=== PATIENT | female | born 1955 | race Caucasian/White ===

== ENCOUNTER → 2022-06-12 | Outpatient (CLI) | payer MEDICARE ==
--- NOTE | 2022-06-13 15:50 | USB ---
Reason for Exam: Clinical finding. Risk Values: Lauren 5 year model risk: 1.1%. NCI Lifetime model risk: 4.0%. Technique: Method: Whole Breast Handheld. Patient Position: Supine. Findings: The whole breast of the left breast, the axilla of the left breast and the retroareolar of the left breast were scanned. Whole left breast ultrasound was performed including scanning of the subareolar region and axilla.. Dense tissues are present throughout. Large elongated irregular mass at the patient's 1:00 palpable site, 8 cm from the nipple measuring up to 4.1 x 2.3 x 1.3 cm. There is an abnormally thickened and rounded lymph node with cortex measuring up to 9 mm. At the 4:00 position, 4 cm from the nipple, there is an irregular hypoechoic lesion measuring 1.0 x 0.7 x 0.4 cm. Along the subareolar plane, posteriorly, there is an irregular elongated hypoechoic mass with angular margins measuring 1.8 x 0.9 x 0.6 cm. At the 11:00 position, 4 cm from the nipple, there is a 9 x 7 x 6 mm irregular hypoechoic lesion. Overall Assessment: Highly suggestive of malignancy, BI-RAD 5 Management: Ultrasound Core Biopsy of the left breast. There are 5 abnormal lesions in the left breast, one of which represents the 4.1 cm palpable 1:00 mass and the second of which represents a suspicious, abnormally thickened axillary lymph node. The other 3 lesions are behind the nipple line, at 4:00, and 11:00. Multicentric disease is suggested. We are recommending 3 site sampling, including the 1:00 dominant mass, farthest 4:00 lesion, and the axillary node. If any of these return negative or if it would be important for treatment planning purposes, sampling of the posterior nipple line mass and 11:00 mass can also be considered at a later time. Electronically signed and approved by: Flavio Ring M.D. Radiologist
--- NOTE | 2022-06-13 15:50 | MM ---
Reason for Exam: Clinical finding. Risk Values: Lauren 5 year model risk: 1.1%. NCI Lifetime model risk: 4.0%. Tissue Density: The breast tissue is heterogeneously dense. This may lower the sensitivity of mammography. Findings: Analyzed By CAD. The palpable marker placed along the upper-outer quadrant of the left breast. Underlying large irregular bilobed mass measuring up to 3.8 cm involving large portion of the upper outer quadrant. No discrete persisting abnormality identified in the right breast. Benign oil cyst calcification centrally in the right breast. Further ultrasound evaluation recommended. Overall Assessment: Incomplete: need additional imaging evaluation, BI-RAD 0 Management: Diagnostic Breast Ultrasound of the left breast. Electronically signed and approved by: Flavio Ring M.D. Radiologist
== END | disposition home or self-care (01) ==
LOC: RADMAMWWP 10:42
PROVIDERS: ATTEND Family Medicine
DX: N63.21 Unspecified lump in the left breast, upper outer quadrant (principal)
CPT/HCPCS: 77066; 76641; G0279; 77062

== ENCOUNTER → 2022-06-26 | Day surgery (SDC) | payer MEDICARE ==
--- NOTE | 2022-07-02 09:52 | USB ---
Risk Values: Lauren 5 year model risk: 1.1%. NCI Lifetime model risk: 4.0%. Pathology Description: Location: 1 o'clock. Marker Left Behind. Needle Type: Mammotome Cores: 4 Skin Nicks: 1 Gauge: 13 The procedure of ultrasound guided core biopsy of 2 left breast masses and abnormal left axillary lymph node was explained to the patient. Benefits, alternatives, and risks were discussed. An informed consent was then obtained. The patient was placed in supine positioning for imaging and for the procedure. The overlying skin was prepped and draped in usual sterile fashion. Lidocaine buffered with bicarbonate was used as anesthetic into the skin and subcutaneous tissue up to area of concern in the left lateral breast at 1:00. A chaitanya was made with surgical scalpel. Under ultrasound guidance, a 12-gauge vacuum assisted biopsy gun device was used to obtain 4 core samples. Following this, a ribbon biopsy clip was left in lesion. Attention was then turned to the area concern in the left lateral breast at 4:00. Lidocaine buffered with bicarbonate was used as anesthetic into the skin and subcutaneous tissue up to the area of concern. Under ultrasound guidance, a 12-gauge vacuum assisted biopsy gun device was used to obtain 4 core samples. Following this, a coil biopsy clip was left in lesion. Attention was turned to the abnormal left axillary lymph node. Lidocaine buffered with bicarbonate was used as anesthetic into the skin and subcutaneous tissues up to the area of concern. Under ultrasound guidance, a 12-gauge biopsy gun device was used to obtain 4 core samples. Following this, a butterfly biopsy clip was left in lesion. The patient tolerated the procedure well without any immediate complication. The patient was kept in the radiology department for short stay after the procedure and then discharged home in stable condition. Postprocedure mammogram: The patient was transferred to mammography for physician ordered post procedure mammogram for clip placement verification. There is verification of 2 biopsy clips within the left breast corresponding to abnormal lesions on ultrasound. The left axilla is not imaged. Impression: Successful, uncomplicated ultrasound guided core biopsy of 2 areas of concern in the left breast and abnormal left axillary lymph node, full pathology results to follow. Pathology Results: Result: Malignant, Invasive ductal carcinoma. A. LEFT BREAST, 1:00 POSITION, CORE BIOPSY: Invasive ductal carcinoma, Grade 2 (see Surgical Pathology Cancer Case Summary and comment). B. LEFT BREAST, 4:00 POSITION, CORE BIOPSY: Invasive ductal carcinoma, Grade 2 (see Surgical Pathology Cancer Case Summary and comment). C. DESIGNATED "LEFT AXILLARY TAIL", CORE BIOPSY: Lymphoid tissue positive for metastatic Grade 2 ductal carcinoma (see Surgical Pathology Cancer Case Summary and comment). Pathology Description: Location: axillary tail. Marker Left Behind. Needle Type: VaD Cores: 4 Skin Nicks: 2 Gauge: 18 Pathology Description: Location: 4 o'clock. Marker Left Behind. Cores: 4 Skin Nicks: 1 Gauge: 13 Tissue Density: Left: The breast tissue is heterogeneously dense. This may lower the sensitivity of mammography. Overall Assessment: Malignant Assessment: MG diagnostic mammo LT wo CAD. - Left: Known biopsy proven malignancy, BI-RAD 6. Management: Surgical Consultation of the left breast. Electronically signed and approved by: Santo Salguero D.O.
== END ==
LOC: RADUSWWP 10:03
PROVIDERS: ATTEND Surgery
DX: C50.912 Malignant neoplasm of unspecified site of left female breast (principal); Z17.1 Estrogen receptor negative status [ER-]
CPT/HCPCS: 88305; 88342; 88341; 77065; 19083; 19084; A4648

== ENCOUNTER → 2022-07-18 | Outpatient (CLI) | payer MEDICARE, OTHER ==
--- NOTE | 2022-07-22 10:45 | PE ---
EXAMINATION TYPE: PET CT fusion skull to thigh DATE OF EXAM: 07/18/2022 CLINICAL INDICATION:Female, 66 years old with history of C50.612 MALIGNANT NEOPLASM OF AXILLARY TAIL OF LEF; TECHNIQUE: Following the intravenous administration of 11.09 mCi of F-18 FDG, whole body images are performed from the skull base to the midthigh. Images are reviewed on the computer in the coronal, axial, and sagittal planes. Reconstructed rotating images are created on independent workstation and reviewed on the computer. A non-contrast CT is performed in conjunction with the PET scan. Glucose level 86 mg/dL COMPARISON: CT None, PET/CT None, diagnostic mammogram March 26, 2022, BIOPSY 06/26/2022. FINDINGS: Mediastinal SUV mean is 1.4. Hepatic parenchyma SUV mean is 1.8. SKULL BASE AND NECK: No suspicious FDG activity. CHEST, MEDIASTINUM, AND HILAR REGION: * Abnormal FDG activity seen within the left breast posterior depth max SUV 8.4 with a more linear a ppearance just anterior to the pectoralis major muscles measuring 4.6 x 1.0 cm. * A more focal area of FDG uptake in a mass in the lateral left breast with max SUV 10.0 measuring 1.5 x 1.6 cm. * Left axillary lymph nodes with increased radiotracer uptake max SUV 3.3, the largest measuring 9 m m in short axis. * Subtle Left retropectoral lymph node with asymmetric uptake with max SUV 1.4 measuring 4 mm in abhishek rt axis, which is suspicious. ABDOMEN AND PELVIS: Focal radio tracer uptake within the sigmoid colon max SUV 5.4. No additional milagros picious FDG activity within the abdomen or pelvis. OSSEOUS STRUCTURES: No suspicious FDG activity. OTHER CT: Bilateral aphakia. Mild atherosclerosis of the arterial vasculature. The appendix is normal . Colonic diverticulosis is. IMPRESSION: 1. Left breast masses consistent with malignancy as seen on prior ultrasound and biopsy. There is as sociated metastatic disease to the left axilla lymph nodes and suspicious left retropectoral lymph no de present. 2. Focal FDG activity which is indeterminate involving the sigmoid colon. Could represent an inflame d diverticulum versus underlying polyp. Attention on follow-up imaging. Consider colonoscopy if not r ecently completed.
== END | disposition home or self-care (01) ==
LOC: RADPETMAIN 15:30
PROVIDERS: ATTEND Internal Medicine Hematology & Oncology
DX: C50.612 Malignant neoplasm of axillary tail of left female breast (principal); C77.3 Secondary and unspecified malignant neoplasm of axilla and upper limb lymph nodes
CPT/HCPCS: 78815; A9552

== ENCOUNTER 2022-07-25 06:59 | Day surgery (SDC) | payer MEDICARE, OTHER ==
[2022-07-24 14:07] VITALS: BMI 18.3
[~2022-07-25 06:59] MED LIST: ACETAMINOPHEN TAB 500 MG TAB PO PRN; HEPARIN SODIUM,PORCINE/PF 5,000 UNIT/0.5 ML SYRINGE SQ PRN; Pre Op ABX Message 1 EACH MISC MISCELLANE ONE
[2022-07-25] MEDS ORDERED: LACTATED RINGERS 1,000 ML IV ONE (07:22)
[2022-07-25] MEDS ORDERED: ONDANSETRON 4 MG/2 ML VIAL IVP ONE (07:37)
[2022-07-25] MEDS ORDERED: DEXAMETHASONE SOD PHOSPHATE 4 MG/ML 1 ML VIAL IVP ONE (07:37)
--- NOTE | 2022-07-25 08:22 | P.GSHP ---
History of Present Illness H&P Date: 07/25/22 Chief Complaint: Left breast cancer 66 row female known to our service. Recently diagnosed with locally advanced left breast cancer. Here today for Port-A-Cath placement. She has not had a port previously. She believes she is beginning therapy in a week or so. Past Medical History Past Medical History: Cancer, COPD, Eye Disorder Additional Past Medical History / Comment(s): MENINGITIS (19 YRS OLD)., NO MEDS FOR COPD. , FLOATER RIGHT EYE., LEFT BREAST CANCER History of Any Multi-Drug Resistant Organisms: None Reported Past Surgical History: Hysterectomy, Tonsillectomy Additional Past Surgical History / Comment(s): RUPTURED GRAAFIAN FOLLICLE, HARITHA CATARACTS. Past Anesthesia/Blood Transfusion Reactions: No Reported Reaction Additional Past Anesthesia/Blood Transfusion Reaction / Comment(s): HX OF BLOOD TRANSFUSION-NO REACTION Past Psychological History: Anxiety Smoking Status: Former smoker Past Alcohol Use History: Occasional Additional Past Alcohol Use History / Comment(s): QUIT SMOKING 5 DAYS AGO., SMOKED LESS THAN 1PPD, SMOKED FOR 40 YEARS. Past Drug Use History: None Reported Additional Drug Use History / Comment(s): CBD COFFEE- INSTRUCTED NOT TO USE 24 HRS PRIOR TO SURGERY. - Past Family History Father Family Medical History: Cancer Additional Family Medical History / Comment(s): PANCREATIC CANCER Brother(s) Family Medical History: Cancer, Thyroid Disorder Additional Family Medical History / Comment(s): STOMACH CANCER Medications and Allergies Home Medications Medication Instructions Recorded Confirmed Type Acetaminophen Tab [Tylenol] 650 mg PO Q6H PRN 07/24/22 07/24/22 History LORazepam [Ativan] 1 mg PO QAM 07/24/22 07/24/22 History LORazepam [Ativan] 2 mg PO HS 07/24/22 07/24/22 History Nicotine 7Mg/24Hr Patch [Habitrol] 1 patch TRANSDERM HS 07/24/22 07/24/22 History Vicks Zzzquil 1 dose PO HS PRN 07/24/22 History Allergies Allergy/AdvReac Type Severity Reaction Status Date / Time No Known Allergies Allergy Verified 07/24/22 13:38 Surgical - Exam Vital Signs Temp Pulse Resp BP Pulse Ox 97.4 F L 81 18 124/77 99 07/25/22 07:21 07/25/22 07:21 07/25/22 07:21 07/25/22 07:21 07/25/22 07:21 Physical exam: General: Well-developed, well-nourished HEENT: Normocephalic, sclerae nonicteric Abdomen: Nontender, nondistended Extremities: No edema Neuro: Alert and oriented Assessment and Plan (1) Breast cancer, left Narrative/Plan: Will proceed with Port-A-Cath placement this time. Risks of bleeding, infection, DVT, pneumothorax, catheter malfunction, anesthesia related complications were discussed. The patient understands and wishes to proceed. Current Visit: Yes Status: Acute Code(s): C50.912 - MALIGNANT NEOPLASM OF UNSPECIFIED SITE OF LEFT FEMALE BREAST SNOMED Code(s): 861607293
[2022-07-25] MEDS ORDERED: PHENYLEPHRINE-0.9% NACL SYG 1,000 MCG/10 ML SYRINGE ONE (08:23)
[2022-07-25] MEDS ORDERED: PROPOFOL 10 MG/ML 20 ML VIAL IV ONE (08:23)
[2022-07-25] MEDS ORDERED: ePHEDrine 50 MG/ML 1 ML VIAL ONE (08:23)
[2022-07-25] MEDS ORDERED: MIDAZOLAM 2 MG/2 ML VIAL ONE (08:23)
[2022-07-25] MEDS ORDERED: fentaNYL (PF) 50 MCG/ML 2 ML AMP ONE (08:23)
[2022-07-25] MEDS ORDERED: LIDOCAINE 2% INJ 20 MG/ML (2 ML VIAL) ONE (08:23)
[2022-07-25] MEDS ORDERED: LIDOCAINE 1% INJ 10MG/ML (20 ML MDV) SQ ONE ×2 (08:45→08:51)
[2022-07-25] MEDS ORDERED: SODIUM CHLORIDE 0.9% 50 ML with ceFAZolin 2,000 MG IV ONE ×2 (08:50)
[2022-07-25] MEDS ORDERED: traMADol 50 MG TAB PO PRN (09:29)
[2022-07-25] MEDS ORDERED: NALOXONE 0.4 MG/ML 1 ML VIAL IV PRN (09:29)
[2022-07-25 09:32] VITALS: TEMP 97
--- NOTE | 2022-07-25 09:38 | FL ---
Fluoroscopy History: Port-A -Cath Insertion Port-A -Cath Insertion. FL TIME: [address] GARCIA. 2 IMAGES TO PACS
--- NOTE | 2022-07-25 09:52 | XR ---
EXAMINATION TYPE: XR chest 1V confirm line [facility] DATE OF EXAM: 07/25/2022 HISTORY: Shortness of breath. COMPARISON: None. TECHNIQUE: Single view of the chest is submitted. FINDINGS: Right-sided Mediport catheter with distal tip overlying the SVC. No evidence for pneumothorax. There is no evidence for focal infiltrate. The heart is stable. Hilar and mediastinal structures are within normal limits. Degenerative changes are seen of the dorsal spine. IMPRESSION: 1. Chronic changes without evidence for acute pulmonary disease.
[2022-07-25 10:26] VITALS: BP 115/72; PULSE 83; RESP 16
--- NOTE | 2022-07-30 19:35 | P.OP ---
Date of Procedure: 07/25/22 Procedure(s) Performed: PREOPERATIVE DIAGNOSIS: breast cancer POSTOPERATIVE DIAGNOSIS: Same PROCEDURE: Port-A-Cath placement SURGEON: Tee EBL: Minimal ANESTHESIA: Sedation COMPLICATIONS: None OPERATIVE PROCEDURE: Patient was brought and placed on the operative table in the supine position. The patient was sedated per anesthesia that time. The chest and neck were prepped and draped in usual sterile fashion. The ultrasound probe was used to identify the location of the right internal jugular vein. The skin was localized with lidocaine. The Seldinger needle was advanced into the IJ under ultrasound guidance. The wire was advanced through the needle under fluoroscopic guidance into the superior vena cava. A port pocket was created in the right infraclavicular location. The catheter was tunneled from the wire entrance site to the port pocket. The port was then connected to the catheter. The dilator introducer was threaded over the guidewire. The guidewire and dilator were then removed. The catheter was advanced through the introducer and introducer was then removed. The tip was seen to be in the right atrial junction. Port was flushed with both saline and a Hep-Lock solution. There was good flow both in and out of the port. The port was sutured in underlying tissues using 3-0 silk sutures. The subcutaneous tissues were reapproximated using 3-0 Vicryl sutures and the skin at both locations using 4-0 Monocryl sutures. Steri-Strips and sterile dressings then applied. DISPOSITION: Stable to recovery room
== END 2022-07-25 10:50 | disposition home or self-care (01) ==
LOC: OR 06:59
PROVIDERS: ATTEND Surgery
DX: C50.919 Malignant neoplasm of unspecified site of unspecified female breast (principal); J44.9 Chronic obstructive pulmonary disease, unspecified; Z87.891 Personal history of nicotine dependence; Z79.899 Other long term (current) drug therapy
CPT/HCPCS: 36561; 77001; C1788; J2250; J1100; J2405; J0690; J2001 ×2; J3010; J1642; J2370; J2704

== ENCOUNTER 2022-08-26 09:47 | Day surgery (SDC) | payer MEDICARE, OTHER ==
[~2022-08-26 09:47] MED LIST changes: -ACETAMINOPHEN TAB 500 MG TAB PO PRN; -HEPARIN SODIUM,PORCINE/PF 5,000 UNIT/0.5 ML SYRINGE SQ PRN; +LACTATED RINGERS 1,000 ML IV SCH; +LIDOCAINE 1% (10MG/ML) FOR IV START INTRADERMA PRN; -Pre Op ABX Message 1 EACH MISC MISCELLANE ONE
[2022-08-26 10:27] VITALS: TEMP 97.6
[2022-08-26] MEDS ORDERED: PROPOFOL 10 MG/ML 20 ML VIAL IV ONE (10:56)
--- NOTE | 2022-08-26 11:00 | P.GSHP ---
History of Present Illness H&P Date: 08/26/22 Chief Complaint: Colon cancer screening 66-year-old female here today for colonoscopy. Patient with recent diagnosis of locally advanced breast cancer. Patient with PET scan showing some questionable activity in the sigmoid colon. No prior colonoscopy. No family history of colon cancer. No bowel complaints. Past Medical History Past Medical History: Cancer, COPD, Eye Disorder Additional Past Medical History / Comment(s): MENINGITIS, 19 YRS OLD ovary burst., NO MEDS FOR COPD. , FLOATER RIGHT EYE., LEFT BREAST CANCER - pt had a recent PET scan that showed at spot that they wanted to check out for mets. History of Any Multi-Drug Resistant Organisms: None Reported Past Surgical History: Hysterectomy, Tonsillectomy Additional Past Surgical History / Comment(s): RUPTURED GRAFIAN FOLLICLE, HARITHA CATARACTS with lens implants Past Anesthesia/Blood Transfusion Reactions: No Reported Reaction Additional Past Anesthesia/Blood Transfusion Reaction / Comment(s): HX OF BLOOD TRANSFUSION-NO REACTION Smoking Status: Light tobacco smoker - Past Family History Father Family Medical History: Cancer Additional Family Medical History / Comment(s): PANCREATIC CANCER Brother(s) Family Medical History: Cancer, Thyroid Disorder Additional Family Medical History / Comment(s): STOMACH CANCER Medications and Allergies Home Medications Medication Instructions Recorded Confirmed Type Acetaminophen Tab [Tylenol] 650 mg PO Q6H PRN 07/24/22 08/26/22 History LORazepam [Ativan] 1 mg PO QAM 07/24/22 08/26/22 History LORazepam [Ativan] 2 mg PO HS 07/24/22 08/26/22 History CARBOplatin [Paraplatin] 50 mg IV WEEKLY 08/26/22 08/26/22 History OLANZapine 5 mg PO DAILY 08/26/22 08/26/22 History PACLitaxeL [Taxol] mg IV WEEKLY 08/26/22 History Pembrolizumab [Keytruda] 100 mg IV WEEKLY 08/26/22 08/26/22 History Allergies Allergy/AdvReac Type Severity Reaction Status Date / Time No Known Allergies Allergy Verified 08/26/22 10:15 Surgical - Exam Vital Signs Temp Pulse Resp BP Pulse Ox 97.6 F 81 16 134/59 98 08/26/22 10:26 08/26/22 10:26 08/26/22 10:26 08/26/22 10:26 08/26/22 10:26 Physical exam: General: Well-developed, well-nourished HEENT: Normocephalic, sclerae nonicteric Abdomen: Nontender, nondistended Extremities: No edema Neuro: Alert and oriented Assessment and Plan (1) Colon cancer screening Narrative/Plan: Will proceed with colonoscopy at this time. Current Visit: Yes Status: Acute Code(s): Z12.11 - ENCOUNTER FOR SCREENING FOR MALIGNANT NEOPLASM OF COLON SNOMED Code(s): 335864044
--- NOTE | 2022-08-26 11:19 | P.PCN ---
Date of Procedure: 08/26/22 Procedure(s) Performed: PREOPERATIVE DIAGNOSIS: Colon cancer screening POSTOPERATIVE DIAGNOSIS: Diverticulosis PROCEDURE: Colonoscopy ANESTHESIA: MAC SURGEON: Robert Oliveira M.D. SPECIMENS: None ENDOSCOPIC PROCEDURE: The patient was placed on the endoscopy table in the left decubitus position. The Olympus colonoscope was inserted into the anus and passed under direct visualization to the base of the cecum. The appendiceal orifice was visualized. From that point the scope was slowly withdrawn inspe cting all surfaces carefully. There were no neoplastic inflammatory or polypoid lesions throughout the cecum, ascending, transverse, descending, sigmoid and rectum. There was extensive diverticulosis noted throughout the colon. Digital rectal examination was normal. The patient was taken to the recovery room in stable condition per anesthesia guidelines. RECOMMENDATIONS: Resume diet. Recent PET scan findings likely on the basis of chronic diverticulitis. Repeat colonoscopy in 5-10 years.
[2022-08-26 11:49] VITALS: BP 107/56; PULSE 78; RESP 20
== END 2022-08-26 11:58 | disposition home or self-care (01) ==
LOC: ORWHC2ENDO 09:47
PROVIDERS: ATTEND Surgery
DX: Z12.11 Encounter for screening for malignant neoplasm of colon (principal); K57.30 Diverticulosis of large intestine without perforation or abscess without bleeding; J44.9 Chronic obstructive pulmonary disease, unspecified; H57.9 Unspecified disorder of eye and adnexa; G03.9 Meningitis, unspecified; Z90.710 Acquired absence of both cervix and uterus; Z90.89 Acquired absence of other organs; Z98.41 Cataract extraction status, right eye; Z98.42 Cataract extraction status, left eye; Z85.3 Personal history of malignant neoplasm of breast; Z72.0 Tobacco use; Z80.0 Family history of malignant neoplasm of digestive organs; Z83.49 Family history of other endocrine, nutritional and metabolic diseases; Z79.899 Other long term (current) drug therapy
CPT/HCPCS: J2704; G0121

== ENCOUNTER 2022-10-16 21:42 | Emergency (ER) | payer MEDICARE, OTHER ==
[2022-10-16] MEDS ORDERED: SODIUM CHLORIDE 0.9% 1,000 ML IV STA ×2 (21:55→22:56)
[2022-10-16] MEDS ORDERED: ONDANSETRON 4 MG/2 ML VIAL IVP STA (21:55)
--- NOTE | 2022-10-16 21:56 | ED ---
Chest Pain HPI - General Chief Complaint: Chest Pain Stated Complaint: Chest Pain Time Seen by Provider: 10/16/22 21:53 Source: patient, EMS, RN notes reviewed, old records reviewed Mode of arrival: EMS Limitations: no limitations - History of Present Illness Initial Comments: This is a 66-year-old female to the emergency department for evaluation. She presents today for evaluation of pain chest pain and back pain. Patient had chest pain that radiated to back radiates to her job positive for nausea and shortness of breath. Patient has not had this pain before. No current, fever. Patient's chest pain is persistent here in the emergency department with no sweating MD Complaint: chest pain -: days(s) Onset: during rest, during exertion Pain Location: substernal, left chest Pain Radiation: none Severity: moderate Severity scale (1-10): 7 Quality: sharp Consistency: intermittent Improves With: nothing Worsens With: nothing Context: other (0) Anginal Symptoms: dyspnea Other Symptoms: palpitations Treatments Prior to Arrival: none - Related Data Home Medications Medication Instructions Recorded Confirmed Acetaminophen Tab [Tylenol] 650 mg PO Q6H PRN 07/24/22 08/26/22 LORazepam [Ativan] 1 mg PO QAM 07/24/22 08/26/22 LORazepam [Ativan] 2 mg PO HS 07/24/22 08/26/22 CARBOplatin [Paraplatin] 50 mg IV WEEKLY 08/26/22 08/26/22 OLANZapine 5 mg PO DAILY 08/26/22 08/26/22 PACLitaxeL [Taxol] mg IV WEEKLY 08/26/22 Pembrolizumab [Keytruda] 100 mg IV WEEKLY 08/26/22 08/26/22 Allergies Allergy/AdvReac Type Severity Reaction Status Date / Time No Known Allergies Allergy Verified 10/16/22 21:55 Review of Systems ROS Statement: Those systems with pertinent positive or pertinent negative responses have been documented in the HPI. ROS Other: All systems not noted in ROS Statement are negative. EKG Findings - EKG Comments: EKG Findings:: EKG interpreted me sinus 94 WI 132 QRS 84 QTC 360 Past Medical History Past Medical History: Cancer, COPD, Eye Disorder Additional Past Medical History / Comment(s): MENINGITIS, 19 YRS OLD ovary burst., NO MEDS FOR COPD. , FLOATER RIGHT EYE., LEFT BREAST CANCER - pt had a recent PET scan that showed at spot that they wanted to check out for mets. History of Any Multi-Drug Resistant Organisms: None Reported Past Surgical History: Hysterectomy, Tonsillectomy Additional Past Surgical History / Comment(s): RUPTURED GRAFIAN FOLLICLE, HARITHA CATARACTS with lens implants Past Anesthesia/Blood Transfusion Reactions: No Reported Reaction Additional Past Anesthesia/Blood Transfusion Reaction / Comment(s): HX OF BLOOD TRANSFUSION-NO REACTION Past Psychological History: Anxiety Smoking Status: Light tobacco smoker Past Alcohol Use History: Occasional Past Drug Use History: None Reported - Past Family History Father Family Medical History: Cancer Additional Family Medical History / Comment(s): PANCREATIC CANCER Brother(s) Family Medical History: Cancer, Thyroid Disorder Additional Family Medical History / Comment(s): STOMACH CANCER General Exam Limitations: no limitations General appearance: alert, in no apparent distress Head exam: Present: atraumatic, normocephalic, normal inspection Eye exam: Present: normal appearance, PERRL, EOMI. Absent: scleral icterus, c onjunctival injection, periorbital swelling ENT exam: Present: normal exam, mucous membranes moist Neck exam: Present: normal inspection. Absent: tenderness, meningismus, lymphadenopathy Respiratory exam: Present: normal lung sounds bilaterally. Absent: respiratory distress, wheezes, rales, rhonchi, stridor Cardiovascular Exam: Present: regular rate, normal rhythm, normal heart sounds. Absent: systolic murmur, diastolic murmur, rubs, gallop, clicks GI/Abdominal exam: Present: soft, normal bowel sounds. Absent: distended, tenderness, guarding, rebound, rigid Extremities exam: Present: normal inspection, full ROM, normal capillary refill. Absent: tenderness, pedal edema, joint swelling, calf tenderness Back exam: Present: normal inspection Neurological exam: Present: alert, oriented X3, CN II-XII intact Psychiatric exam: Present: normal affect, normal mood Skin exam: Present: warm, dry, intact, normal color. Absent: rash Course Vital Signs 10/16/22 10/16/22 10/16/22 21:48 22:00 22:30 Temperature 97.9 F Pulse Rate 105 H 102 H 93 Respiratory 22 19 17 Rate Blood Pressure 91/62 91/62 92/75 O2 Sat by Pulse 99 98 97 Oximetry 10/16/22 10/16/22 10/17/22 23:00 23:30 00:00 Temperature Pulse Rate 87 82 78 Respiratory 20 20 17 Rate Blood Pressure 87/57 86/59 91/53 O2 Sat by Pulse 95 96 97 Oximetry 10/17/22 00:30 Temperature Pulse Rate 95 Respiratory 16 Rate Blood Pressure 91/61 O2 Sat by Pulse 95 Oximetry - Reevaluation(s) Reevaluation #1: 10/16/22 Medical record is reviewed Patient symptoms improved here in the ER Patient informed of results and questions answered Chest Pain MDM - MDM 66 female with atypical chest pain severe to back, patient does have CT of chest 7 pelvis for aneurysm or PE which is negative for acute disease. Patient improved she can be discharged Disposition Clinical Impression: Atypical chest pain, Chest pain Disposition: HOME SELF-CARE Condition: Fair Instructions (If sedation given, give patient instructions): Chest Pain (ED) Is patient prescribed a controlled substance at d/c from ED?: No Referrals: Roney Lema DO [Primary Care Provider] - 1-2 days Time of Disposition: 00:25
[2022-10-16 21:58] VITALS: TEMP 97.9
[2022-10-16 22:11] LABS: Anisocytosis Slight; HGB 8.9 gm/dL (11.4-16.0); MCH 34.3 pg (25.0-35.0); MCHC 35.4 g/dL (31.0-37.0); MCV 96.9 fL (80.0-100.0); Macrocytosis Slight; Mean Platelet Volume 10.1; RBC 2.58 m/uL (3.80-5.40); RDW 18.8 % (11.5-15.5); WBC 15.5 k/uL (3.8-10.6)
--- NOTE | 2022-10-16 22:17 | XR ---
EXAMINATION TYPE: XR chest 1V portable DATE OF EXAM: 10/16/2022 COMPARISON: 07/25/2022 HISTORY: Chest pain TECHNIQUE: Single view FINDINGS: Heart is normal. Lungs are clear of consolidation. There are no hilar masses. There are don st leads. There is right central venous catheter with tip in the superior vena cava. Diaphragm is nor mal. There is mild pleural thickening at the lung apices. There is mild pulmonary hyperinflation. IMPRESSION: No active cardiopulmonary disease. There is probably some COPD. No change.
[2022-10-16 22:24] LABS: INR 0.9 (<1.2); Partial Thromboplastin Time 22.8 sec (22.0-30.0); Prothrombin Time 9.8 sec (9.0-12.0)
[2022-10-16 22:32] LABS: Band Neutrophils % 3 %; Eosinophils # (M) 0.16 k/uL (0-0.7); Lymphocytes # (M) 0.16 k/uL (1.0-4.8); Monocytes # (M) 0.16 k/uL (0-1.0); Neutrophils % (M) 94 %; Nucleated Red Blood Cells 0 /100 WBC (0-0); Total Cells Counted 100
[2022-10-16 22:33] LABS: ALT 24 U/L (4-34); AST 22 U/L (14-36); African American GFR (CKD) >90 (>60 ml/min/1.73 sqM); Albumin 3.5 g/dL (3.5-5.0); Alkaline Phosphatase 95 U/L (38-126); Anion Gap 6 mmol/L; Blood Urea Nitrogen 18 mg/dL (7-17); Calcium 8.7 mg/dL (8.4-10.2); Carbon Dioxide 22 mmol/L (22-30); Chloride 108 mmol/L (98-107); Glucose 103 mg/dL (74-99); Lipase 48 U/L (23-300); Magnesium 1.9 mg/dL (1.6-2.3); Non-African American GFR(CKD) >90 (>60 ml/min/1.73 sqM); Potassium 4.1 mmol/L (3.5-5.1); Sodium 136 mmol/L (137-145); Total Bilirubin 0.4 mg/dL (0.2-1.3); Total Protein 5.8 g/dL (6.3-8.2)
[2022-10-16 22:34] LABS: Platelet Count 77 k/uL (150-450)
[2022-10-16] MEDS ORDERED: SODIUM CHLORIDE 0.9% 500 ML 500 ML IV STA (22:56)
[2022-10-16] MEDS ORDERED: MORPHINE SULFATE 4 MG/ML SYRINGE IVP STA (22:56)
--- NOTE | 2022-10-16 23:54 | CT ---
EXAMINATION TYPE: CT angio chest DATE OF EXAM: 10/16/2022 COMPARISON: None HISTORY: CHEST PAIN CT DLP: 178.9 mGycm Automated exposure control for dose reduction was used. CONTRAST: Performed with IV Contrast, patient injected with 100 mL of Isovue 370. There are 3-D post processed images. There is pleural thickening at the lung apices. There is no pleural effusion. There is no pericardial effusion. Heart size is normal. There is no med iastinal adenopathy. There is mild pulmonary emphysema. There is minimal pleural thickening in the po sterior lung marie bilaterally. No evidence of suspicious pulmonary mass. Heart size is normal. No pericardial effusion. There are no hilar masses. There is normal contrast op acification of the pulmonary arteries. No filling defect. Thoracic aorta is intact. No evidence of an eurysm or dissection. The thoracic spine is intact. No compression fracture. Sternum is intact. IMPRESSION: No evidence of pulmonary embolism. Mild pleural and pulmonary scarring. Mild pulmonary emphysema. No suspicious pulmonary mass.
--- NOTE | 2022-10-17 00:02 | CT ---
EXAMINATION TYPE: CT abdomen pelvis w con DATE OF EXAM: 10/16/2022 COMPARISON: None HISTORY: CHEST PAIN Abdominal pain CT DLP: 549 mGycm Automated exposure control for dose reduction was used. CONTRAST: Performed with IV Contrast, patient injected with 100 mL of Isovue 370. Images obtained from the diaphragm to the floor the pelvis with the IV contrast. Lung bases are clear. No pleural effusion. Heart size is normal. No pericardial effusion. Liver splee n and stomach pancreas and gallbladder appear intact. The bile ducts are not dilated. There is no adrenal mass. Kidneys show satisfactory contrast opacification. No hydronephrosis. There is mild wall thickening of the proximal jejunum. Appendix not seen. No sign of thickened appendix. Ur eters are not dilated. No retroperitoneal adenopathy. There are multiple sigmoid diverticula. No dive rticulitis. There is no mesenteric edema. No ascites or free air. No bowel obstruction. Lumbar vertebrae have nor mal alignment. No compression fracture. There is vacuum disc at L3-4 and L5-S1 bony pelvis is intact. IMPRESSION: Mild sigmoid diverticulosis without diverticulitis. Mild wall thickening of the proximal jejunum could be some minimal gastroenteritis.
[2022-10-17 00:36] VITALS: BP 91/61; PULSE 95; RESP 16
[2022-10-17] MEDS ORDERED: ACET/COD 300 MG/30 MG STARTER PACK 6 TAB BTL PO STA (00:43)
[2022-10-17] MEDS ORDERED: ONDANSETRON 4 MG ODT STARTER PACK 2 TAB BTL PO STA (00:43)
== END 2022-10-17 00:50 | disposition home or self-care (01) ==
LOC: EC 21:42
DX: R07.89 Other chest pain (principal); J44.9 Chronic obstructive pulmonary disease, unspecified; F41.9 Anxiety disorder, unspecified; F17.210 Nicotine dependence, cigarettes, uncomplicated
CPT/HCPCS: 99285 ×2; 96374 ×2; 96375 ×2; 96361 ×4; 36415; 93005; 83880; 80053; 83690; 83735; 84484; 85025; 85610; 85730; 71045; 71275; 74177; J2270; J2405; S0119; Q9967

== ENCOUNTER → 2023-01-22 | Outpatient (CLI) | payer MEDICARE, OTHER ==
--- NOTE | 2023-01-22 11:31 | USB ---
Reason for Exam: Follow-up at short interval from prior study. Patient History: Breast cancer, left, age 66. 06/26/2022, Malignant US biopsy breast VAD LT on the left side. 06/26/2022, US breast needle core addl LT on the Left side. 06/26/2022, US biopsy breast add'l VAD LT on the Left side. Technique: Method: Whole Breast Handheld. Prior Study Comparison: 06/12/2022 Bilateral MG 3D diag mammo w/cad HARITHA, [facility]. 06/26/2022 Left MG diagnostic mammo LT wo CAD., [facility]. Findings: The whole breast of the left breast, the axilla of the left breast and the retroareolar of the left breast were scanned. A complete US of all four quadrants of the left breast , axilla, and retro-areolar region were reviewed. * At the axilla, a tiny 8 mm fluid locule with echogenic microclip is noted. * There is an adjacent nonenlarged but borderline thickened lymph node measuring 1.1 x 1.0 x 0.7 cm. It shows uniform cortical thickening up to 3 mm. * Patient's dominant 1:00 mass spanning from 4CFN out to 8CFN is redemonstrated. Peripherally, there appears to have been significant treatment response with only vague hypoechoic band of tissue remaining. More centrally at 4 cm from the nipple, residual mass measures up to 3.7 x 3.1 x 1.0 cm. This is in comparison to the total mass size of 4.1 x 2.3 x 1.3 cm, previously. * Irregular hypoechoic 4:00 lesion, 4 cm from the nipple measures 1.4 x 0.9 x 0.7 cm (versus 1.0 x 0.7 x 0.4 cm, previously). * Located deep, posterior to the nipple, there is a vague hypoechoic elongated lesion measuring 2.5 x 1.5 x 0.7 cm (versus 1.8 x 0.9 x 0.6 cm, previously). * Dense tissues present throughout. No additional solid or cystic lesion seen. Overall Assessment: Known biopsy proven malignancy, BI-RAD 6 Management: Surgical Consultation of the left breast. For known biopsy-proven neoplasm. There seems to be some mixed response to the neoadjuvant chemotherapy. * The biopsied axillary lymph node has resolved but there is a borderline thickened lymph node that has developed just adjacent. * The dominant 1:00 mass appears to have shrunk peripherally but the more central portion may have slightly increase in size. * The 4:00 lesion measures slightly larger. * The deep retroareolar lesion measures slightly larger as well. Electronically signed and approved by: Flavio Ring M.D. Radiologist
== END | disposition home or self-care (01) ==
LOC: RADUSWWP 08:46
PROVIDERS: ATTEND Internal Medicine Hematology & Oncology
DX: C50.812 Malignant neoplasm of overlapping sites of left female breast (principal); J44.9 Chronic obstructive pulmonary disease, unspecified; F41.8 Other specified anxiety disorders; Z17.1 Estrogen receptor negative status [ER-]

== ENCOUNTER → 2023-03-11 | Outpatient (CLI) | payer MEDICARE, OTHER | END | disposition home or self-care (01) | LOC: LABWHC1 12:56 | PROVIDERS: ATTEND Internal Medicine Endocrinology, Diabetes & Metabolism | DX: E03.8 Other specified hypothyroidism (principal) | CPT/HCPCS: 36415; 84443 ==

== ENCOUNTER 2023-03-16 06:04 | Day surgery (SDC) | payer MEDICARE, OTHER ==
[~2023-03-16 06:04] MED LIST changes: +ACETAMINOPHEN TAB 500 MG TAB PO PRN; +HEPARIN SODIUM,PORCINE/PF 5,000 UNIT/0.5 ML SYRINGE SQ PRN; -LACTATED RINGERS 1,000 ML IV SCH; -LIDOCAINE 1% (10MG/ML) FOR IV START INTRADERMA PRN; +Pre Op ABX Message 1 EACH MISC MISCELLANE ONE
[2023-03-16] MEDS ORDERED: LACTATED RINGERS 1,000 ML IV ONE ×2 (06:44→11:25)
[2023-03-16] MEDS ORDERED: ALPRAZolam 0.25 MG TAB ONE (07:19)
[2023-03-16] MEDS ORDERED: ONDANSETRON 4 MG/2 ML VIAL ONE (07:19)
[2023-03-16] MEDS ORDERED: ALPRAZolam 0.25 MG TAB PO ONE (07:21)
[2023-03-16 07:42] LABS: Basophils % (A) 1 %; Eosinophils # (A) 0.1 k/uL (0-0.7); Eosinophils % (A) 2 %; HCT 34.2 % (34.0-46.0); HGB 11.7 gm/dL (11.4-16.0); Lymphocytes # (A) 0.7 k/uL (1.0-4.8); Lymphocytes % (A) 17 %; MCH 38.9 pg (25.0-35.0); MCV 114.2 fL (80.0-100.0); Macrocytosis Marked; Mean Platelet Volume 8.2; Monocytes # (A) 0.3 k/uL (0-1.0); Monocytes % (A) 8 %; Neutrophils # (A) 2.8 k/uL (1.3-7.7); Neutrophils % (A) 69 %; Platelet Count 173 k/uL (150-450); WBC 4.1 k/uL (3.8-10.6)
[2023-03-16 07:54] LABS: ALT 20 U/L (4-34); African American GFR (CKD) >90 (>60 ml/min/1.73 sqM); Albumin 4.1 g/dL (3.5-5.0); Anion Gap 8 mmol/L; Blood Urea Nitrogen 6 mg/dL (7-17); Calcium 9.3 mg/dL (8.4-10.2); Carbon Dioxide 22 mmol/L (22-30); Chloride 106 mmol/L (98-107); Glucose 86 mg/dL (74-99); Non-African American GFR(CKD) >90 (>60 ml/min/1.73 sqM); Sodium 136 mmol/L (137-145); Total Bilirubin 0.7 mg/dL (0.2-1.3); Total Protein 6.8 g/dL (6.3-8.2)
[2023-03-16 07:55] LABS: AST 31 U/L (14-36); Potassium 4.6 mmol/L (3.5-5.1)
[2023-03-16 07:56] LABS: Alkaline Phosphatase 62 U/L (38-126)
[2023-03-16] MEDS ORDERED: LIDOCAINE 1% (10MG/ML) FOR IV START SQ ONE (08:15)
[2023-03-16] MEDS ORDERED: DEXAMETHASONE SOD PHOSPHATE 4 MG/ML 1 ML VIAL IVP ONE (08:24)
[2023-03-16] MEDS ORDERED: SUCCINYLCHOLINE CHLORIDE 200 MG/10 ML VIAL IV ONE (09:20)
[2023-03-16] MEDS ORDERED: NEOSTIGMINE 1 MG/ML 10 ML VIAL ONE (09:20)
[2023-03-16] MEDS ORDERED: fentaNYL (PF) 50 MCG/ML 2 ML AMP ONE (09:20)
[2023-03-16] MEDS ORDERED: GLYCOPYRROLATE 0.2 MG/ML 2 ML VIAL ONE (09:20)
[2023-03-16] MEDS ORDERED: LIDOCAINE 2% INJ 20 MG/ML (2 ML VIAL) ONE (09:20)
[2023-03-16] MEDS ORDERED: MIDAZOLAM 2 MG/2 ML VIAL ONE (09:20)
[2023-03-16] MEDS ORDERED: ROCURONIUM 10 MG/ML (5 ML VIAL) IV ONE (09:20)
[2023-03-16] MEDS ORDERED: PHENYLEPHRINE-0.9% NACL SYG 1,000 MCG/10 ML SYRINGE ONE (09:20)
[2023-03-16] MEDS ORDERED: PROPOFOL 10 MG/ML 20 ML VIAL IV ONE (09:20)
[2023-03-16] MEDS ORDERED: ceFAZolin 1,000 MG VIAL ONE (09:45)
[2023-03-16] MEDS ORDERED: SODIUM CHLORIDE 0.9% 100 ML BAG ONE (09:45)
[2023-03-16] MEDS ORDERED: NALOXONE 0.4 MG/ML 1 ML VIAL IV PRN (11:12)
[2023-03-16] MEDS ORDERED: traMADol 50 MG TAB PO PRN (11:12)
[2023-03-16] MEDS ORDERED: HYDROmorphone 0.5 MG/0.5 ML SYRINGE IVP PRN (11:12)
[2023-03-16] MEDS ORDERED: HYDROmorphone 1 MG/ML 1 ML SYRINGE IVP PRN (11:12)
--- NOTE | 2023-03-16 11:21 | P.OP ---
Date of Procedure: 03/16/23 Procedure(s) Performed: PREOPERATIVE DIAGNOSIS: Left breast cancer POSTOPERATIVE DIAGNOSIS: Same PROCEDURE: Left breast modified radical mastectomy with wire localization left axillary lymph node SURGEON: Tee EBL: 25 mL ANESTHESIA: General COMPLICATIONS: None OPERATIVE PROCEDURE: Patient was placed on the operating room table in the supine position. Left chest wall was prepped and draped sterilely. Using the skin marker the proposed incision sites were drawn out on the chest wall. The superior incision was first created. The incision was elliptical in nature encompassing the nipple areolar complex. Flaps were raised superiorly until the chest wall was reached. The mastectomy incision was then created inferiorly and flaps were again raised until the chest wall was reached. The breast was removed from the chest wall using electrocautery. Multiple vessels were divided using either electrocautery or the clip film process operator. The left axilla was then addressed. Dissection took place using both cautery and blunt dissection superiorly until the axillary vein was visualized. The superficial vasculature was either clipped or tied using 3-0 silk ties. The patient had a few palpable nodes that were clinically suspicious for residual malignancy. These were included with the axillary contents. We swept the axillary contents inferiorly. The thoracodorsal and long thoracic nerve were identified and preserved throughout. The wire was noted to enter into a palpably enlarged lymph node in the mid to lower axillary region. This was all included with our main mastectomy incision. The mastectomy with axillary contents connected were then sent to radiology. The wire and the clip in the axilla was visualized. The chest wall was irrigated. No bleeding was seen. A drain was placed beneath the flaps of the mastectomy incision. The subcutaneous tissues were then closed using 3-0 Vicryl sutures and the skin was closed using a running 4-0 Monocryl stitch. Prineo dressing was used along the entire length of the incision with Dermabond. The drain was sutured in place using a 3-0 silk stitch. DISPOSITION: Stable to recovery room
[2023-03-16] MEDS ORDERED: HYDROmorphone 0.5 MG/0.5 ML SYRINGE IVP ONE ×2 (11:36→11:46)
[2023-03-16] MEDS: ACETAMINOPHEN TAB 325 MG TAB PO PRN (13:48)
[2023-03-16] MEDS: ONDANSETRON 4 MG/2 ML VIAL IVP PRN (15:27)
--- NOTE | 2023-03-16 16:27 | USB ---
EXAM: US breast localization LT DATE OF EXAM: 03/16/2023 COMPARISON: 06/12/2022 Left US breast LT, [facility]. 06/12/2022 Bilateral MG 3D diag mammo w/cad HARITHA, [facility]. Left MG diagnostic mammo LT wo CAD., [facility]. 01/22/2023 Left US breast LT, [facility]. DESCRIPTION: The procedure of needle localization with wire placement and than surgical excision was explained to the patient. Benefits, alternatives, and risks were discussed. An informed consent was then obtaine d. The shortest pathway for procedure was chosen. Shortest pathway was inferior approach. The overlying skin was prepped and draped in usual sterile fashion. Lidocaine buffered with bicarbonate was used as anesthetic into the skin and subcutaneous tissue up to the level of area of concern. A 7 cm needl e was used. It was placed via a inferior approach under ultrasound guidance. Imaging demonstrates pl acement of the needle followed by a wire through the abnormal left axillary lymph node. At this point , wire was placed and the needle was withdrawn. The wire was fixed to patient's skin. Images were di scussed with the surgeon prior to surgery by telephone. The hydro dipti appears to be near the level o f the tip of the wire. The wire transverses the abnormal mammogram which is adjacent to the hydro mar k. The patient tolerated the procedure well without any immediate complication. The patient was kept in the radiology department for short stay after the procedure and then taken to surgery for surgical e xcision. Specimen: Wire and axillary surgical clip and wire are identified in specimen mammogram. 2 additiona l clips are identified. Impression: 1. Successful ultrasound-guided wire localization left axillary lymph node and surgical clip
[2023-03-16] MEDS: HYDROcodone/APAP 5-325MG 1 EACH TAB PO PRN ×2 (16:45→21:15)
[2023-03-16] MEDS: HEPARIN SODIUM,PORCINE/PF 5,000 UNIT/0.5 ML SYRINGE SQ SCH (21:16)
[2023-03-16] MEDS: FAMOTIDINE 20 MG TAB PO SCH (21:16)
[2023-03-17] MEDS: HYDROcodone/APAP 5-325MG 1 EACH TAB PO PRN ×2 (01:44→05:53)
[2023-03-17] MEDS: ONDANSETRON 4 MG/2 ML VIAL IVP PRN (06:35)
[2023-03-17 09:26] VITALS: RESP 14
[2023-03-17] MEDS: FAMOTIDINE 20 MG TAB PO SCH (09:29)
[2023-03-17] MEDS: HEPARIN SODIUM,PORCINE/PF 5,000 UNIT/0.5 ML SYRINGE SQ SCH (09:48)
[2023-03-17 10:37] VITALS: PULSE 73
[2023-03-17] MEDS ORDERED: SODIUM CHLORIDE 0.9% 500 ML 500 ML IV ONE (11:23)
--- NOTE | 2023-03-17 11:44 | P.CONS ---
History of Present Illness - Reason for Consult Consult date: 03/17/23 Medical management status post left breast mastectomy - History of Present Illness This is a very pleasant 67-year-old female who was admitted under Dr. Robert Oliveira surgery services for left breast cancer and underwent left breast modified radical mastectomy with wire localization left axillary lymph node. Patient f ollows with Dr. Dee as well for oncology and her primary care provider is Dr. Lema with a past medical history of COPD, left breast cancer, anxiety, and light tobacco smoker. Patient reports she occasionally drinks alcohol socially and denies any other illicit drug use. Patient has used CBD in her coffee previously. Patient this morning having some low blood pressures of 89/50, and 72/45 and reports she did feel a little lightheaded and dizzy and nauseated when getting up. Repeat blood pressure on exam was 96/60 and nursing staff at the bedside and will give a 500 mL normal saline bolus over 2 hours. Patient reports her blood pressures are usually on the lower side although not this low and not symptomatic. Patient does have incentive spirometer at the bedside and encourage the patient to continue using at least 10 times every hour. Labs reviewed and look within normal limits, hemoglobin is stable at 11.7. Patient is currently afebrile denies chest pain or shortness of breath. Patient does have some chest wall tenderness which is to be expected given surgery from yeste rday. Surgical dressings dry and intact and will defer to general surgery. Review Of Systems: Constitutional: No fever, no chills, no night sweats. No weight change. No weakness, fatigue or lethargy. No daytime sleepiness. EENT: No headache. No blurred vision or double vision, no loss of vision. No loss of Hearing, no ringing in the ears, no dizziness. No nasal drainage or congestion. No epistaxis. No sore throat. Lungs: No shortness of breath, cough, no sputum production. No wheezing. Cardiovascular: No chest pain, no lower extremity edema. No palpitations. No paroxysmal nocturnal dyspnea. No orthopnea. Reports of mild lightheadedness and dizziness with getting up this morning to the bathroom. No syncopal episodes. Abdominal: No abdominal pain. Reports occasional nausea this morning that has improved, no vomiting. No diarrhea. No constipation. No bloody or tarry stoo ls.. No loss of appetite. Genitourinary: No dysuria, increased frequency, urgency. No urinary retention. Musculoskeletal: No myalgias. No muscle weakness, no gait dysfunction, no frequent falls. No back pain. No neck pain. Integumentary: No wounds, no lesions. No rash or pruritus. No unusual bruising. No change in hair or nails. Neurologic: No aphasia. No facial droop. No change in mentation. No head injury. No headache. No paralysis. No paresthesia. Psychiatric: No depression. No anxiety. No mood swings. Endocrine: No abnormal blood sugars. No weight change. No excessive sweating or thirst. No cold intolerance. PHYSICAL EXAMINATION: GENERAL: The patient is alert and oriented x4, thin built, elderly appearing HEENT: Pupils are round and equally reacting to light. EOMI. no scleral icterus. No conjunctival pallor. Normocephalic, atraumatic. No pharyngeal erythema. No th yromegaly. CARDIOVASCULAR: S1 and S2 muffled PULMONARY: diminished breath sounds bilaterally with no wheezing or rhonchi noted. Surgical dressings of the left breast currently dry and intact and recently changed to a nursing, MARTA drain noted ABDOMEN: soft. Nontender on exam. non-distended, normoactive bowel sounds. No palpable organomegaly. MUSCULOSKELETAL: No joint swelling or deformity. EXTREMITIES: No cyanosis, clubbing, or pedal edema. NEUROLOGICAL: Gross neurological examination did not reveal any focal deficits. SKIN: No rashes. Assessment: Left breast cancer status post left breast modified radical mastectomy with wire localization left axillary lymph node History of left breast cancer Hypotension, multifactorial most likely medication effect and recent anesthesia History of COPD, not in exacerbation History of anxiety Hypothyroidism Occasional nicotine use GI prophylaxis DVT prophylaxis Full code Plan: Recommend to continue with current medications and management per general surgery services Dr. Oliveira. Patient underwent left breast modified radical mastectomy with wire localization left axillary lymph node yesterday and doing well Patient did have some mild hypotension this morning and reports that she felt slightly lightheaded and dizzy when getting up to the bathroom. Patient did receive [place] on an empty stomach and did have some nausea and reports was relieved with Zofran Will give 500 mL normal saline fluid bolus and recommend monitoring blood pr essures closely Encourage the patient to increase activity as tolerated with assistance and also instructed the patient to get up slowly at the side of the bed for 1-2 minutes prior to getting up Incentive spirometer at the bedside and encourage the patient to continue using at least 10 times every hour while awake All medications reviewed and would recommend holding Ativan and olanzapine for now Thank you kindly for this consultation. We will continue to follow during hospitalization. The impression and plan of care has been dictated by Bessie Gomez, nurse practitioner as directed. Dr. Almaz MD I have performed a history and examination and MDM of this patient, discussed the same with the dictator, and agree with the dictator's assessment and plan as written ,documented as a scribe. Based on total visit time, I have performed more than 50% of the visit. Any additional findings or plans will be noted. Past Medical History Past Medical History: Cancer, COPD, Eye Disorder Additional Past Medical History / Comment(s): MENINGITIS, 19 YRS OLD ovarian cyst burst., NO MEDS FOR COPD. , FLOATER RIGHT EYE., LEFT BREAST CANCER - pt had a recent PET scan that showed at spot that they wanted to check out for mets. History of Any Multi-Drug Resistant Organisms: None Reported Past Surgical History: Hysterectomy, Tonsillectomy Additional Past Surgical History / Comment(s): RUPTURED GRAFIAN FOLLICLE, HARITHA CATARACTS with lens implants Past Anesthesia/Blood Transfusion Reactions: No Reported Reaction Additional Past Anesthesia/Blood Transfusion Reaction / Comm: HX OF BLOOD TRANSFUSION-NO REACTION Past Psychological History: Anxiety Smoking Status: Light tobacco smoker Past Alcohol Use History: Occasional Additional Past Alcohol Use History / Comment(s): pt states smokes 3/4 pack per day, SMOKED LESS THAN 1PPD, SMOKED FOR 40 YEARS. Past Drug Use History: None Reported Additional Drug Use History / Comment(s): CBD COFFEE once per year- INSTRUCTED NOT TO USE 24 HRS PRIOR TO SURGERY. - Past Family History Father Family Medical History: Cancer Additional Family Medical History / Comment(s): PANCREATIC CANCER Brother(s) Family Medical History: Cancer, Thyroid Disorder Additional Family Medical History / Comment(s): STOMACH CANCER Medications and Allergies Home Medications Medication Instructions Recorded Confirmed Type Acetaminophen Tab [Tylenol] 650 mg PO Q6H PRN 07/24/22 03/16/23 History LORazepam [Ativan] 1 mg PO BID 07/24/22 03/16/23 History OLANZapine 5 mg PO HS 08/26/22 03/16/23 History Pembrolizumab [Keytruda] 100 mg IV WEEKLY 08/26/22 03/16/23 History Levothyroxine Sodium [Synthroid] 88 mcg PO DAILY 03/10/23 03/16/23 History Allergies Allergy/AdvReac Type Severity Reaction Status Date / Time No Known Allergies Allergy Verified 03/16/23 06:40 Physical Exam Vitals: Vital Signs Temp Pulse Resp BP Pulse Ox 03/17/23 09:27 89/50 03/17/23 09:26 62 72/45 03/17/23 07:50 98.0 F 65 14 88/52 95 03/16/23 23:49 98 F 64 18 93/52 97 03/16/23 15:00 97.9 F 69 18 96/50 97 03/16/23 14:30 60 18 88/50 03/16/23 14:00 98.2 F 70 18 104/54 03/16/23 13:45 75 18 104/54 97 03/16/23 13:30 75 18 94/58 97 03/16/23 13:15 98.2 F 79 18 90/57 97 03/16/23 12:46 73 16 107/62 96 03/16/23 11:57 68 20 99/53 95 03/16/23 11:42 87 16 111/55 95 03/16/23 11:27 93 16 111/57 97 03/16/23 11:12 97.6 F 96 16 106/70 100 Intake and Output 03/16/23 03/17/23 03/17/23 22:59 06:59 14:59 Intake Total 200 200 Output Total 70 40 Balance 130 160 Intake: Oral 200 200 Output: Drainage 35 40 Left Upper Anterior Chest 35 40 Other 35 Other: # Voids 1 1 Results CBC & Chem 7: 03/16/23 07:16 03/16/23 07:16
[2023-03-17] MEDS ORDERED: LEVOTHYROXINE 88 MCG TAB PO SCH (11:45)
[2023-03-17] MEDS: ACETAMINOPHEN TAB 325 MG TAB PO PRN (11:53)
[2023-03-17 12:28] VITALS: BMI 16.7
[2023-03-17 12:46] VITALS: BP 91/55; TEMP 98.2
[2023-03-17] MEDS ORDERED: SODIUM CHLORIDE 0.9% 1,000 ML IV SCH (14:45)
--- NOTE | 2023-03-17 15:02 | P.DS ---
Providers Expected date of discharge: 03/17/23 Attending physician: Robert Oliveira Consults: 03/16/23 11:12 Consult Physician Routine Consulting Provider: Chad Alegria Consult Reason/Comments: Medical management Do you want consulting provider notified?: Yes Primary care physician: [place] Hospital Course: 67-year-old female underwent left mastectomy yesterday. Doing well today. Blood pressure was low earlier but normal now. Per the the patient's blood pressure always runs low. She feels well. Incision is clean and dry. No hematoma. Drain is serous. May discharge if cleared by medicine. Follow-up one week. Plan - Discharge Summary Discharge Rx Participant: No New Discharge Prescriptions: No Action LORazepam [Ativan] 1 mg PO BID Pembrolizumab [Keytruda] 100 mg IV WEEKLY OLANZapine 5 mg PO HS Acetaminophen Tab [Tylenol] 650 mg PO Q6H PRN PRN Reason: Pain Levothyroxine Sodium [Synthroid] 88 mcg PO DAILY Discharge Medication List Acetaminophen Tab [Tylenol] 650 mg PO Q6H PRN 07/24/22 [History] LORazepam [Ativan] 1 mg PO BID 07/24/22 [History] OLANZapine 5 mg PO HS 08/26/22 [History] Pembrolizumab [Keytruda] 100 mg IV WEEKLY 08/26/22 [History] Levothyroxine Sodium [Synthroid] 88 mcg PO DAILY 03/10/23 [History]
--- NOTE | 2023-03-23 08:38 | MM ---
Reason for Exam: Post Procedure Mammogram. Last screening mammogram was performed 9 month(s) ago. Patient History: Breast cancer, left, age 66. 06/26/2022, Malignant US biopsy breast VAD LT on the left side. 06/26/2022, US breast needle core addl LT on the Left side. 06/26/2022, US biopsy breast add'l VAD LT on the Left side. Prior Study Comparison: 06/12/2022 Left US breast LT, [facility]. 06/12/2022 Bilateral MG 3D diag mammo w/cad HARITHA, [facility]. 06/26/2022 Left MG diagnostic mammo LT wo CAD., [facility]. 01/22/2023 Left US breast LT, [facility]. Tissue Density: Left: The breast tissue is heterogeneously dense. This may lower the sensitivity of mammography. Pathology Description: Location: axillary tail. Needle Type: 7 cm [place] The procedure of needle localization with wire placement and than surgical excision was explained to the patient. Benefits, alternatives, and risks were discussed. An informed consent was then obtained. The shortest pathway for procedure was chosen. Shortest pathway was inferior approach. The overlying skin was prepped and draped in usual sterile fashion. Lidocaine buffered with bicarbonate was used as anesthetic into the skin and subcutaneous tissue up to the level of area of concern. A 7 cm needle was used. It was placed via a inferior approach under ultrasound guidance. Imaging demonstrates placement of the needle followed by a wire through the abnormal left axillary lymph node. At this point, wire was placed and the needle was withdrawn. The wire was fixed to patient's skin. Images were discussed with the surgeon prior to surgery by telephone. The hydro dipti appears to be near the level of the tip of the wire. The wire transverses the abnormal mammogram which is adjacent to the hydro dipti. The patient tolerated the procedure well without any immediate complication. The patient was kept in the radiology department for short stay after the procedure and then taken to surgery for surgical excision. Specimen: Wire and axillary surgical clip and wire are identified in specimen mammogram. 2 additional clips are identified. Impression: 1. Successful ultrasound-guided wire localization left axillary lymph node and surgical clip. Pathology Results: Result: Malignant, Invasive ductal carcinoma. LEFT BREAST, MASTECTOMY: Multifocal invasive poorly differentiated ductal carcinoma (Grade 3), margins negative. 10 of 14 axillary lymph nodes positive for metastatic ductal carcinoma with extranodal extension and angiolymphatic invasion. See Surgical Pathology Cancer Case Summary. Notes SURGICAL PATHOLOGY CANCER CASE SUMMARY - INVASIVE CARCINOMA OF THE BREAST, RESECTION PROCEDURE: Total mastectomy (including nipple sparing and skin sparing mastectomy). SPECIMEN LATERALITY: Left. HISTOLOGIC TYPE: Invasive carcinoma of no special type (ductal). HISTOLOGIC GRADE (MEHRAN HISTOLOGIC SCORE): GLANDULAR (ACINAR)/TUBULAR DIFFERENTIATION: Score 3. NUCLEAR PLEOMORPHISM: Score 3. MITOTIC RATE: Score 3. OVERALL GRADE: Grade 3 (total score 9). TUMOR SIZE: Greatest dimension of largest focus of invasive carcinoma estimated to be 4.5 cm. TUMOR FOCALITY: Multiple foci of invasive carcinoma. DUCTAL CARCINOMA IN SITU (DCIS): Not identified. TREATMENT EFFECT: TREATMENT EFFECT IN THE BREAST: Probable response to presurgical therapy in the invasive carcinoma. TREATMENT EFFECT IN THE LYMPH NODES: No definite response to presurgical therapy and metastatic carcinoma. MARGINS: Margins negative for invasive carcinoma. DISTANCE OF INVASIVE CARCINOMA TO CLOSEST MARGIN: Less than 1 mm from the posterior margin. REGIONAL LYMPH NODES: NUMBER OF LYMPH NODES EXAMINED: Total of 14. NUMBER OF SENTINEL NODES EXAMINED: 0. NUMBER OF LYMPH NODES WITH MACROMETASTASES (>2mm): 10. NUMBER OF LYMPH NODES WITH MICROMETASTASES OR ISOLATED TUMOR CELLS: 0. SIZE OF LARGEST METASTATIC DEPOSIT: 7 mm. EXTRANODAL EXTENSION: Present, greater than 2 mm. PATHOLOGIC STAGE CLASSIFICATION (pTNM, AJCC 8th Edition): MODIFIER: y (post treatment). MODIFIER: m (multiple foci of invasive carcinoma). PRIMARY TUMOR: ympT2. REGIONAL LYMPH NODES: ypN3a. DISTANT METASTASIS: Not applicable. ADDITIONAL FINDINGS: Fibrocystic changes. ANCILLARY STUDIES: ER, OR, HER2 and Ki-67 studies were performed on the previous core biopsy specimen ([id number]). Overall Assessment: Malignant Assessment: MG diagnostic mammo LT wo CAD. - Left: Known biopsy proven malignancy, BI-RAD 6. Management: Oncologic Management of the left breast. Appropriate oncologic management. Electronically signed and approved by: Brian Holman D.O. Radiologis
== END 2023-03-17 15:49 ==
LOC: OR 06:04 → 4FBP 11:12 → OR 03-17 15:49
PROVIDERS: ATTEND Surgery
DX: C50.912 Malignant neoplasm of unspecified site of left female breast (principal); R92.8 Other abnormal and inconclusive findings on diagnostic imaging of breast; J44.9 Chronic obstructive pulmonary disease, unspecified; F41.9 Anxiety disorder, unspecified; Z90.710 Acquired absence of both cervix and uterus; Z90.89 Acquired absence of other organs; Z80.0 Family history of malignant neoplasm of digestive organs; Z90.12 Acquired absence of left breast and nipple
CPT/HCPCS: 19307; 97162; 80053; 85025; 88309; 77065; 76098; C1819; J2250; J0330; J1100; J2710; J2405 ×2; J0690; J3010; J2370; J2704; J1170; J1644 ×2; J2001

== ENCOUNTER → 2023-12-03 | Outpatient (CLI) | payer MEDICARE, OTHER ==
--- NOTE | 2023-12-05 12:48 | PE ---
EXAMINATION TYPE: PET CT fusion skull to thigh DATE OF EXAM: 12/03/2023 COMPARISON: 10/16/2022 CT abdomen and pelvis, CT chest 10/16/2022 Prior PET/CT: 07/18/2022 HISTORY: Breast cancer TECHNIQUE: Following the intravenous administration of 9.41 mCi of F-18 FDG, whole body images are p erformed from the skull base to the midthigh. Images are reviewed on the computer in the coronal, ax ial, and sagittal planes. Reconstructed rotating images are created on independent workstation and r eviewed on the computer. A localization and attenuation correction CT is performed in conjunction w ith the PET scan. DLP: 148.45 mGycm SCAN: Subsequent Blood glucose: 75 mg/dL Average Mediastinum SUV: Average Liver SUV: FINDINGS: NECK: No abnormal uptake THORAX: Right supraclavicular lymph node has increased uptake, image 65, SUV 5.01. Additional right s upraclavicular lymph node image 60 has SUV 5.66. A superior mediastinal lymph node is on the left, im age 74 SUV 3.73. There is some focal uptake within the superior mediastinum, image 80, SUV 5.06. There are multiple lymph nodes within the mediastinum with uptake, example images superior right hilu m, image 89, SUV 4.91, subcarinal lymph node image 92, SUV 6.93. Small infrahilar lymph node image 92 has an SUV of 2.59. This could be reactive or early metastasis. Additional left mediastinal adenopat hy is present, image 92, SUV 3.26. Intense uptake is within the right peribronchial and right infrahilar region, image 96, peribronchial SUV 9.95, infrahilar adenopathy measures SUV 8.02. Left infrahilar adenopathy at this level is also present with an SUV of 8.99. Left infrahilar adenopathy is present measuring 6.11, image 101. Left axillary lymph node has uptake, image 89, SUV 4.17. There is a focus of radiotracer accumulation within the inferior left breast, image 105, SUV 4.18. Th ere is intense uptake along the anterior chest wall, example image 120 with an SUV of 6.74. This area appears to be related to the postsurgical changes. There is a large left pleural effusion. Some mild uptake along the pleural margin may be present. Arvind e more intense foci are noted on the inferior medial pleural effusion regions image 142, SUV 6.55 ant erior and SUV 4.52 posteriorly. ABDOMEN: There is a focus of radiotracer within the medial left lobe liver, image 161 SUV 8.02. PELVIS: There may be 2 adjacent foci of intense uptake within the distal sigmoid colon, image 204, OLMOS V 12.62. This could be related to normal bowel activity. However, this appears to be relatively focal compared to the remaining bowel. Consider colonoscopy for additional evaluation. This was present pr eviously. OSSEOUS STRUCTURES: There is focal uptake within the upper thoracic vertebral body in the region of T 2, image 65 SUV 7.66. There is increased uptake within the region of T5, image 80 SUV 8.44. There is uptake within an anterior left rib, image 80, SUV 6.42. There is a focus of radiotracer within the lateral right ilium, image 190, SUV 10.[address]: Sigmoid diverticulosis is noted. COMPARISON: Previous left axillary adenopathy appears resolved. Adenopathy identified this time appea rs to be new. Previous left breast mass is not evident. There has been interval surgery. Osseous meta stases are new. Mediastinal uptake is new. Hepatic uptake is new. IMPRESSION: 1. New foci of uptake within mediastinal and hilar lymph nodes can be compatible with metastasis. 2. New focus of radiotracer within the liver suspicious for metastasis. 3. New foci of osseous metastasis including thoracic vertebral bodies and right ilium and left anteri or rib end. 4. Persistent intense uptake in the distal sigmoid colon region raising suspicion this may be an gabriela tional neoplasm. Additional workup recommended. 5. Large left pleural effusion.
== END | disposition home or self-care (01) ==
LOC: RADPETMAIN 10:53
PROVIDERS: ATTEND Internal Medicine Hematology & Oncology
DX: C79.51 Secondary malignant neoplasm of bone (principal); C50.812 Malignant neoplasm of overlapping sites of left female breast; J90 Pleural effusion, not elsewhere classified
CPT/HCPCS: 78815; A9552

== ENCOUNTER 2023-12-10 07:59 | Inpatient (IN) | payer MEDICARE, OTHER ==
[2023-12-10] MEDS: methylPREDNISolone SOD SUCCI 125 MG/2 ML VIAL IV STA (08:36)
[2023-12-10] MEDS: SODIUM CHLORIDE 0.9% 500 ML 500 ML IV STA (08:37)
--- NOTE | 2023-12-10 08:37 | XR ---
EXAMINATION TYPE: XR chest 2V DATE OF EXAM: 12/10/2023 8:33 AM CLINICAL INDICATION:Female, 68 years old with history of difficulty breathing; [facility] COMPARISON: Chest radiographs from 10/16/2022. TECHNIQUE: XR chest 2V Frontal and lateral views of the chest. FINDINGS: Lungs/Pleura: New moderate left and small right pleural effusion. There is no evidence of focal consolidation, or p neumothorax. Pulmonary vascularity: Unremarkable. Heart/mediastinum: Cardiomediastinal silhouette is partially obscured due to overlying and adjacent o pacities. Musculoskeletal: No acute osseous pathology. Other findings: None Lines/Tubes: [id number] projecting over the right hemithorax with distal tip at the cavoatrial junction. IMPRESSION: Moderate left pleural effusion new from 10/16/2022. Small right pleural effusion.
[2023-12-10 08:43] LABS: Basophils % (A) 0 %; Eosinophils % (A) 0 %; HCT 40.3 % (34.0-46.0); HGB 13.7 gm/dL (11.4-16.0); Lymphocytes # (A) 1.3 k/uL (1.0-4.8); Lymphocytes % (A) 16 %; MCH 33.9 pg (25.0-35.0); MCV 99.7 fL (80.0-100.0); Mean Platelet Volume 7.7; Monocytes # (A) 0.6 k/uL (0-1.0); Monocytes % (A) 7 %; Neutrophils # (A) 6.4 k/uL (1.3-7.7); Neutrophils % (A) 76 %; Platelet Count 221 k/uL (150-450); RBC 4.04 m/uL (3.80-5.40); RDW 12.8 % (11.5-15.5); WBC 8.5 k/uL (3.8-10.6)
--- NOTE | 2023-12-10 08:46 | ED ---
General Adult HPI - General Stated complaint: Cough, COPD, GIULIANA Time Seen by Provider: 12/10/23 08:01 Source: patient, RN notes reviewed Mode of arrival: ambulatory Limitations: no limitations - History of Present Illness Initial comments: 68-year-old female presents emergency department with chief complaint of shortness of breath. Patient presented via EMS did see breathing treatment. Patient states that she has a history of COPD and breast cancer which recently reoccurred. She states she had a PET scan. Patient states she has a mild productive cough states with any exertion or shortness of breath worsens. States she is feels very fatigued no reported fever. Denies any leg pain or leg swelling. - Related Data Home Medications Medication Instructions Recorded Confirmed Levothyroxine Sodium [Synthroid] 88 mcg PO DAILY 03/10/23 12/10/23 Azithromycin [Zithromax Z Pack] See Taper PO DIRECTED 12/10/23 12/10/23 LORazepam [Ativan] 2 mg PO BID 12/10/23 12/10/23 methylPREDNISolone [Medrol Dose See Taper PO DIRECTED 12/10/23 12/10/23 Pack] Allergies Allergy/AdvReac Type Severity Reaction Status Date / Time No Known Allergies Allergy Verified 12/10/23 09:33 Review of Systems ROS Statement: Those systems with pertinent positive or pertinent negative responses have been documented in the HPI. ROS Other: All systems not noted in ROS Statement are negative. Past Medical History Past Medical History: Cancer, COPD, Eye Disorder Additional Past Medical History / Comment(s): MENINGITIS, 19 YRS OLD ovarian cyst burst., NO MEDS FOR COPD. , FLOATER RIGHT EYE., LEFT BREAST CANCER - pt had a recent PET scan that showed at spot that they wanted to check out for mets. History of Any Multi-Drug Resistant Organisms: None Reported Past Surgical History: Hysterectomy, Tonsillectomy Additional Past Surgical History / Comment(s): RUPTURED GRAFIAN FOLLICLE, HARITHA CATARACTS with lens implants Past Anesthesia/Blood Transfusion Reactions: No Reported Reaction Additional Past Anesthesia/Blood Transfusion Reaction / Comment(s): HX OF BLOOD TRANSFUSION-NO REACTION Past Psychological History: Anxiety Smoking Status: Current every day smoker, Light tobacco smoker Past Alcohol Use History: Occasional Past Drug Use History: None Reported - Past Family History Father Family Medical History: Cancer Additional Family Medical History / Comment(s): PANCREATIC CANCER Brother(s) Family Medical History: Cancer, Thyroid Disorder Additional Family Medical History / Comment(s): STOMACH CANCER General Exam Limitations: no limitations General appearance: alert, in distress Head exam: Present: atraumatic, normocephalic, normal inspection ENT exam: Present: normal exam, mucous membranes moist Neck exam: Present: normal inspection. Absent: tenderness, meningismus, lymphadenopathy Respiratory exam: Present: wheezes, decreased breath sounds. Absent: normal lung sounds bilaterally, respiratory distress, rales, rhonchi, stridor Cardiovascular Exam: Present: normal rhythm, tachycardia, normal heart sounds. Absent: systolic murmur, diastolic murmur, rubs, gallop, clicks GI/Abdominal exam: Present: soft, normal bowel sounds. Absent: distended, tenderness, guarding, rebound, rigid Course Vital Signs 12/10/23 12/10/23 12/10/23 08:19 08:47 08:50 Temperature 98.8 F Pulse Rate 110 H 108 H Respiratory 24 18 26 H Rate Blood Pressure 124/87 125/81 O2 Sat by Pulse 91 L 92 L Oximetry Fraction of Inspired Oxygen (FIO2) 12/10/23 12/10/23 12/10/23 09:32 09:38 09:48 Temperature Pulse Rate 106 H 120 H Respiratory Rate Blood Pressure O2 Sat by Pulse Oximetry Fraction of 50 Inspired Oxygen (FIO2) 12/10/23 12/10/23 11:52 12:02 Temperature Pulse Rate 100 104 H Respiratory Rate Blood Pressure O2 Sat by Pulse Oximetry Fraction of Inspired Oxygen (FIO2) EKG Findings - EKG Comments: EKG Findings:: EKG performed at 8: 03 sinus tachycardia rate of 116 GA 123 QRS 90 QT/QTc 300/369 - EKG Results: EKG: interpreted by ERMD Medical Decision Making - Medical Decision Making Was pt. sent in by a medical professional or institution (, PA, THERMAL ENGINEER, urgent c are, hospital, or fdc...) When possible be specific @ -No Did you speak to anyone other than the patient for history (EMS, parent, family, police, friend...)? What history was obtained from this source @ -EMS provided prehospital treatment and complaint Did you review nursing and triage notes (agree or disagree)? Why? @ -I reviewed and agree with nursing and triage notes Were old charts reviewed (outside hosp., previous admission, EMS record, old EKG, old radiological studies, urgent care reports/EKG's, fdc records)? Report findings @ -[Reviewed patient imaging, laboratory studies Differential Diagnosis (chest pain, altered mental status, abdominal pain women, abdominal pain men, vaginal bleeding, weakness, fever, dyspnea, syncope, headache, dizziness, GI bleed, back pain, seizure, CVA, palpatations, mental health, musculoskeletal)? @ -Differential Dyspnea: Coronary syndrome, arrhythmia, tamponade, asthma, COPD, pulmonary embolism, pneumonia, pneumothorax, pulmonary effusion, anaphylaxis, diabetic ketoacidosis, flailed chest, pulmonary contusion, diaphragmatic rupture, anemia, neuromuscular, this is not meant to be an all-inclusive list. EKG interpreted by me (3pts min.). @ -[As above X-rays interpreted by me (1pt min.). @ -[Chest x-ray shows large pleural effusion on the left CT interpreted by me (1pt min.). @ -None done U/S interpreted by me (1pt. min.). @ -None done What testing was considered but not performed or refused? (CT, X-rays, U/S, labs)? Why? @ -None What meds were considered but not given or refused? Why? @ -None Did you discuss the management of the patient with other professionals (professionals i.e. , PA, THERMAL ENGINEER, lab, RT, psych nurse, social science teacher, manager heavy equipment, teacher, environmental health officer, insurance case manager)? Give summary @ -Dr. su admission with consult to Dr. Vaz and an oncology Was smoking cessation discussed for >3mins.? @ -No Was critical care preformed (if so, how long)? @ -No Were there social determinants of health that impacted care today? How? (Homelessness, low income, unemployed, alcoholism, drug addiction, transportat ion, low edu. Level, literacy, decrease access to med. care, group home, rehab)? @ -No Was there de-escalation of care discussed even if they declined (Discuss DNR or withdrawal of care, Hospice)? DNR status @ -No What co-morbidities impacted this encounter? (DM, HTN, Smoking, COPD, CAD, Cancer, CVA, ARF, Chemo, Hep., AIDS, mental health diagnosis, sleep apnea, morbid obesity)? @ -None Was patient admitted / discharged? Hospital course, mention meds given and route, prescriptions, significant lab abnormalities, going to OR and other pertinent info. @ -[Admitted patient found to have a large pleural effusion on the left likely related to her metastatic breast cancer. She does have moderate COPD ex acerbation. Patient will consult to pulmonology for thoracentesis. Patient also have consult oncology. Patient has no obvious signs of infection otherwise. She will be kept on steroids, breathing treatments. Undiagnosed new problem with uncertain prognosis? @ -Yes metastatic cancer Drug Therapy requiring intensive monitoring for toxicity (Heparin, Nitro, Insulin, Cardizem)? @ -No Were any procedures done? @ -No Diagnosis/symptom? @ -[Metastatic breast cancer, COPD, pleural effusion Acute, or Chronic, or Acute on Chronic? @ -Acute Uncomplicated (without systemic symptoms) or Complicated (systemic symptoms)? @ -[Complicated Side effects of treatment? @ -[No Exacerbation, Progression, or Severe Exacerbation? @ -No Poses a threat to life or bodily function? How? (Chest pain, [place], NE, pneumonia, PE, COPD, DKA, ARF, appy, cholecystitis, CVA, Diverticulitis, Homicidal, Suicidal, threat to staff... and all critical care pts) @ -[Yes metastatic cancer, COPD - Lab Data Result diagrams: 12/10/23 08:23 12/10/23 08:23 Lab Results 12/10/23 12/10/23 12/10/23 Range/Units 08:23 08:23 08:23 WBC 8.5 (3.8-10.6) k/uL RBC 4.04 (3.80-5.40) m/uL Hgb 13.7 (11.4-16.0) gm/dL Hct 40.3 (34.0-46.0) % MCV 99.7 (80.0-100.0) fL MCH 33.9 (25.0-35.0) pg MCHC 34.0 (31.0-37.0) g/dL RDW 12.8 (11.5-15.5) % Plt Count 221 (150-450) k/uL MPV 7.7 Neutrophils % 76 % Lymphocytes % 16 % Monocytes % 7 % Eosinophils % 0 % Basophils % 0 % Neutrophils # 6.4 (1.3-7.7) k/uL Lymphocytes # 1.3 (1.0-4.8) k/uL Monocytes # 0.6 (0-1.0) k/uL Eosinophils # 0.0 (0-0.7) k/uL Basophils # 0.0 (0-0.2) k/uL PT 10.6 (10.0-12.5) sec INR 1.0 (<1.2) APTT 24.8 (22.0-30.0) sec Sodium 129 L (137-145) mmol/L Potassium 4.0 (3.5-5.1) mmol/L Chloride 99 (98-107) mmol/L Carbon Dioxide 23 (22-30) mmol/L Anion Gap 7 mmol/L BUN 9 (7-17) mg/dL Creatinine 0.34 L (0.52-1.04) mg/dL Est GFR (CKD-EPI)AfAm >90 (>60 ml/min/1.73 sqM) Est GFR (CKD-EPI)NonAf >90 (>60 ml/min/1.73 sqM) Glucose 137 H (74-99) mg/dL Plasma Lactic Acid Calixto (0.7-2.0) mmol/L Calcium 9.4 (8.4-10.2) mg/dL Magnesium 1.7 (1.6-2.3) mg/dL Total Bilirubin 0.5 (0.2-1.3) mg/dL AST 27 (14-36) U/L ALT 21 (4-34) U/L Alkaline Phosphatase 80 (38-126) U/L Troponin I (0.000-0.034) ng/mL NT-Pro-B Natriuret Pep 159 pg/mL Total Protein 6.5 (6.3-8.2) g/dL Albumin 3.9 (3.5-5.0) g/dL 12/10/23 12/10/23 Range/Units 08:23 08:23 WBC (3.8-10.6) k/uL RBC (3.80-5.40) m/uL Hgb (11.4-16.0) gm/dL Hct (34.0-46.0) % MCV (80.0-100.0) fL MCH (25.0-35.0) pg MCHC (31.0-37.0) g/dL RDW (11.5-15.5) % Plt Count (150-450) k/uL MPV Neutrophils % % Lymphocytes % % Monocytes % % Eosinophils % % Basophils % % Neutrophils # (1.3-7.7) k/uL Lymphocytes # (1.0-4.8) k/uL Monocytes # (0-1.0) k/uL Eosinophils # (0-0.7) k/uL Basophils # (0-0.2) k/uL PT (10.0-12.5) sec INR (<1.2) APTT (22.0-30.0) sec Sodium (137-145) mmol/L Potassium (3.5-5.1) mmol/L Chloride (98-107) mmol/L Carbon Dioxide (22-30) mmol/L Anion Gap mmol/L BUN (7-17) mg/dL Creatinine (0.52-1.04) mg/dL Est GFR (CKD-EPI)AfAm (>60 ml/min/1.73 sqM) Est GFR (CKD-EPI)NonAf (>60 ml/min/1.73 sqM) Glucose (74-99) mg/dL Plasma Lactic Acid Calixto 1.6 (0.7-2.0) mmol/L Calcium (8.4-10.2) mg/dL Magnesium (1.6-2.3) mg/dL Total Bilirubin (0.2-1.3) mg/dL AST (14-36) U/L ALT (4-34) U/L Alkaline Phosphatase (38-126) U/L Troponin I <0.012 (0.000-0.034) ng/mL NT-Pro-B Natriuret Pep pg/mL Total Protein (6.3-8.2) g/dL Albumin (3.5-5.0) g/dL Disposition Clinical Impression: Metastasis from breast cancer, Pleural effusion, COPD exacerbation Disposition: ADMITTED IP TO THIS HOSP Condition: Poor Time of Disposition: 09:18
[2023-12-10 08:53] LABS: Partial Thromboplastin Time 24.8 sec (22.0-30.0); Prothrombin Time 10.6 sec (10.0-12.5)
[2023-12-10 08:54] LABS: ALT 21 U/L (4-34); AST 27 U/L (14-36); African American GFR (CKD) >90 (>60 ml/min/1.73 sqM); Albumin 3.9 g/dL (3.5-5.0); Alkaline Phosphatase 80 U/L (38-126); Anion Gap 7 mmol/L; Blood Urea Nitrogen 9 mg/dL (7-17); Calcium 9.4 mg/dL (8.4-10.2); Carbon Dioxide 23 mmol/L (22-30); Chloride 99 mmol/L (98-107); Glucose 137 mg/dL (74-99); Magnesium 1.7 mg/dL (1.6-2.3); Non-African American GFR(CKD) >90 (>60 ml/min/1.73 sqM); Sodium 129 mmol/L (137-145); Total Bilirubin 0.5 mg/dL (0.2-1.3); Total Protein 6.5 g/dL (6.3-8.2)
[2023-12-10 09:01] LABS: NT-Pro-B-Type Natriuretic Pept 159 pg/mL
[2023-12-10] MEDS ORDERED: NALOXONE 0.4 MG/ML 1 ML VIAL IV PRN (09:18)
[2023-12-10] MEDS ORDERED: ONDANSETRON 4 MG/2 ML VIAL IVP PRN (09:18)
[2023-12-10] MEDS ORDERED: IPRATROPIUM-ALBUTEROL 3 ML NEB INHALATION PRN (09:19)
[2023-12-10] MEDS: IPRATROPIUM-ALBUTEROL 3 ML NEB INHALATION STA (09:38)
[2023-12-10] MEDS: LORazepam 2 MG/ML INJ IV STA (09:52)
--- NOTE | 2023-12-10 11:00 | P.CNPUL ---
History of Present Illness Consult date: 12/10/23 Reason for consult: pleural effusion History of present illness: This is a very pleasant 68-year-old female patient was coming into the emergency department because of shortness of breath. The patient was diagnosed having more differentiated ductal carcinoma and the patient underwent a left mastectomy on , the patient was found to have 10 out of 14 lymph nodes positive for metastatic ductal carcinoma. Based on that, the patient was given systemic chemotherapy and subsequent oral hormonal treatment. Most recent PET scan that was done on this patient on 12/04/2023 showed foci of uptake in the mediastinum and the left hilum compatible with metastases. New focus of activity in the liver suspicious for metastases. New focus of osseous metastases involving the thoracic vertebra in the right ilium and the left anterior rib. There is also a large left-sided pleural effusion. The patient is a chronic smoker. She was briefly placed on a BiPAP in the emergency depression of 10 and currently she is off the BiPAP on 2 L of oxygen by nasal cannula. She has diminished breath sounds in the left lung base. The rest of the blood work shows a WBC count of 8 hemoglobin 13.7 and a platelet count of 221. BUN is at 9 with a creatinine of 0.3 and his sodium level is at 129. The viral panel has been negative. Review of Systems Constitutional: Reports as per HPI, Reports fatigue, Reports poor appetite, Reports weakness, Reports weight loss Eyes: denies as per HPI, denies blurred vision, denies bulging eye, denies decreased vision, denies diplopia, denies discharge, denies dry eye, denies irritation, denies itching, denies pain, denies photophobia, denies loss of peripheral vision, denies loss of vision, denies tunnel vision/blind spots Ears: deny: decreased hearing, ear discharge, earache, tinnitus Ears, nose, mouth and throat: Reports as per HPI Breasts: absent: as per HPI, change in shape, gynecomastia, masses, nipple discharge, pain, skin changes, swelling Cardiovascular: Reports as per HPI Respiratory: Reports as per HPI Gastrointestinal: Reports as per HPI Genitourinary: Reports as per HPI Menstruation: Reports as per HPI Musculoskeletal: Reports as per HPI Musculoskeletal: absent: ankle pain, ankle stiffness, ankle swelling Neurological: Reports as per HPI Psychiatric: Reports as per HPI Endocrine: Reports as per HPI Allergic/Immunologic: Reports as per HPI Past Medical History Past Medical History: Cancer, COPD, Eye Disorder Additional Past Medical History / Comment(s): MENINGITIS, 19 YRS OLD ovarian cyst burst., NO MEDS FOR COPD. , FLOATER RIGHT EYE., LEFT BREAST CANCER - pt had PET scan that showed a spot that they wanted to check out for mets, left mastectomy, last chemo October 2023 History of Any Multi-Drug Resistant Organisms: None Reported Past Surgical History: Hysterectomy, Tonsillectomy Additional Past Surgical History / Comment(s): RUPTURED GRAFIAN FOLLICLE, HARITHA CATARACTS with lens implants, left mastectomy Past Anesthesia/Blood Transfusion Reactions: No Reported Reaction Additional Past Anesthesia/Blood Transfusion Reaction / Comment(s): HX OF BLOOD TRANSFUSION-NO REACTION Past Psychological History: Anxiety Smoking Status: Current every day smoker, Light tobacco smoker Past Alcohol Use History: Occasional Additional Past Alcohol Use History / Comment(s): pt states smokes 3/4 pack per day, SMOKED LESS THAN 1PPD, SMOKED FOR 40 YEARS. Past Drug Use History: None Reported Additional Drug Use History / Comment(s): CBD COFFEE once per year- INSTRUCTED NOT TO USE 24 HRS PRIOR TO SURGERY. - Past Family History Father Family Medical History: Cancer Additional Family Medical History / Comment(s): PANCREATIC CANCER Brother(s) Family Medical History: Cancer, Thyroid Disorder Additional Family Medical History / Comment(s): STOMACH CANCER Medications and Allergies Home Medications Medication Instructions Recorded Confirmed Type Levothyroxine Sodium [Synthroid] 88 mcg PO DAILY 03/10/23 12/10/23 History Azithromycin [Zithromax Z Pack] See Taper PO DIRECTED 12/10/23 12/10/23 History LORazepam [Ativan] 2 mg PO BID 12/10/23 12/10/23 History methylPREDNISolone [Medrol Dose See Taper PO DIRECTED 12/10/23 12/10/23 H istory Pack] Allergies Allergy/AdvReac Type Severity Reaction Status Date / Time No Known Allergies Allergy Verified 12/10/23 09:33 Physical Exam Vitals: Vital Signs Temp Pulse Resp BP Pulse Ox FiO2 12/10/23 09:48 120 H 12/10/23 09:38 106 H 12/10/23 09:32 50 12/10/23 08:50 108 H 26 H 125/81 92 L 12/10/23 08:47 18 02/08/24 08:19 98.8 F 110 H 24 124/87 91 L Intake and Output 12/09/23 12/10/23 12/10/23 22:59 06:59 14:59 Other: Weight 42.184 kg General appearance the patient is calm and comfortable currently on 2 L of oxygen nasal cannula. Her breathing is slightly labored. Head exam was generally normal. There was no scleral icterus or corneal arcus. Mucous membranes were moist. Neck was supple and without jugular venous distension, thyromegaly, or carotid bruits. Carotids were easily palpable bilaterally. There was no adenopathy. Lung sounds are diminished bilaterally specially left lung base and the patient has dullness to percussion. Cardiac exam revealed the PMI to be normally situated and sized. The rhythm was regular and no extrasystoles were noted during several minutes of auscultation. The first and second heart sounds were normal and physiologic splitting of the second heart sound was noted. There were no murmurs, rubs, clicks, or gallops. Abdominal exam revealed normal bowel sounds. The abdomen was soft, non-tender, and without masses, organomegaly, or appreciable enlargement of the abdominal aorta. Examination of the extremities revealed easily palpable radial, femoral and pedal pulses. There was no cyanosis, clubbing or edema. Skin the patient has a Mediport over the right IJ and she is post left mastectomy. Results - Laboratory Findings CBC and BMP: 12/10/23 08:23 12/10/23 08: ABG WBC 8.5 k/uL (3.8-10.6) 12/10/23 08: RBC 4.04 m/uL (3.80-5.40) 12/10/23 08: Hgb 13.7 gm/dL (11.4-16.0) 12/10/23 08: Hct 40.3 % (34.0-46.0) 12/10/23 08: MCV 99.7 fL (80.0-100.0) 12/10/23 08: MCH 33.9 pg (25.0-35.0) 12/10/23 08: MCHC 34.0 g/dL (31.0-37.0) 12/10/23 08: RDW 12.8 % (11.5-15.5) 12/10/23 08:23 Plt Count 221 k/uL (150-450) 12/10/23 08:23 MPV 7.7 12/10/23 08:23 Neutrophils % 76 % 12/10/23 08:23 Lymphocytes % 16 % 12/10/23 08:23 Monocytes % 7 % 12/10/23 08:23 Eosinophils % 0 % 12/10/23 08: Basophils % 0 % 12/10/23 08:23 Neutrophils # 6.4 k/uL (1.3-7.7) 12/10/23 08:23 Lymphocytes # 1.3 k/uL (1.0-4.8) 12/10/23 08:23 Monocytes # 0.6 k/uL (0-1.0) 12/10/23 08: Eosinophils # 0.0 k/uL (0-0.7) 12/10/23 08: Basophils # 0.0 k/uL (0-0.2) 12/10/23 08:23 PT 10.6 sec (10.0-12.5) 12/10/23 08:23 INR 1.0 (<1.2) 12/10/23 08:23 APTT 24.8 sec (22.0-30.0) 12/10/23 08:23 Sodium 129 mmol/L (137-145) L 12/10/23 08:23 Potassium 4.0 mmol/L (3.5-5.1) 12/10/23 08:23 Chloride 99 mmol/L (98-107) 12/10/23 08:23 Carbon Dioxide 23 mmol/L (22-30) 12/10/23 08:23 Anion Gap 7 mmol/L 12/10/23 08:23 BUN 9 mg/dL (7-17) 12/10/23 08:23 Creatinine 0.34 mg/dL (0.52-1.04) L 12/10/23 08:23 Est GFR (CKD-EPI)AfAm >90 (>60 ml/min/1.73 sqM) 12/10/23 08:23 Est GFR (CKD-EPI)NonAf >90 (>60 ml/min/1.73 sqM) 12/10/23 08:23 Glucose 137 mg/dL (74-99) H 12/10/23 08:23 Plasma Lactic Acid Calixto 1.6 mmol/L (0.7-2.0) 12/10/23 08:23 Calcium 9.4 mg/dL (8.4-10.2) 12/10/23 08:23 Magnesium 1.7 mg/dL (1.6-2.3) 12/10/23 08:23 Total Bilirubin 0.5 mg/dL (0.2-1.3) 12/10/23 08:23 AST 27 U/L (14-36) 12/10/23 08:23 ALT 21 U/L (4-34) 12/10/23 08:23 Alkaline Phosphatase 80 U/L (38-126) 12/10/23 08:23 Troponin I <0.012 ng/mL (0.000-0.034) 12/10/23 08:23 NT-Pro-B Natriuret Pep 159 pg/mL 12/10/23 08:23 Total Protein 6.5 g/dL (6.3-8.2) 12/10/23 08:23 Albumin 3.9 g/dL (3.5-5.0) 12/10/23 08:23 Influenza Type A (PCR) Not Detected (Not Detectd) 12/10/23 09:45 Influenza Type B (PCR) Not Detected (Not Detectd) 12/10/23 09:45 RSV (PCR) Not Detected (Not Detectd) 12/10/23 09:45 SARS-CoV-2 (PCR) Not Detected (Not Detectd) 12/10/23 09:45 PT/INR, D-dimer PT 10.6 sec (10.0-12.5) 12/10/23 08:23 INR 1.0 (<1.2) 12/10/23 08:23 Abnormal lab findings: Abnormal Labs 12/10/23 08:23 Sodium 129 L Creatinine 0.34 L Glucose 137 H Assessment and Plan Plan: Acute shortness of breath, multifactorial. She has COPD and a moderate size to large size left-sided pleural effusion which could be potentially metas tatic/malignant in nature. As such, the patient is going to need a diagnostic/therapeutic thoracentesis. She was briefly placed on BiPAP and currently she is on oxygen 2 L/min nasal cannula Acute hypoxic respiratory failure secondary to above currently on 2 L COPD, chronic smoker Metastatic breast cancer post left mastectomy and chemotherapy and hormonal treatment. The patient will be asked to see oncology for further details on her previous treatments. The most recent PET/CT that was done in 12/04/2023 showed metastatic disease with pulmonary, liver and skeletal involvement. History of meningitis History of an ovarian cyst Plan Will proceed with a diagnostic and therapeutic thoracentesis of the left lung. Will send the fluid for analysis. Consult medical oncology Titrate oxygen flow to maintain saturation above 90% Florenceb updrafts regarding her COPD Will give the patient a steroid burst taper May need a of the chest if no improvement or shortness of breath following thoracentesis. Will continue to follow.
--- NOTE | 2023-12-10 11:01 | P.PCN ---
Date of Procedure: 12/10/23 Preoperative Diagnosis: Left-sided pleural effusion Postoperative Diagnosis: Left-sided pleural effusion Procedure(s) Performed: Left-sided thoracentesis Anesthesia: local Surgeon: Matt Vaz Estimated Blood Loss (ml): 0 Pathology: other Condition: stable Disposition: floor Operative Findings: A time out was performed and the chest x-ray was reviewed, the appropriate side was confirmed and marked. My hands were washed immediately prior to the procedure. I wore a surgical cap, mask with protective eyewear, sterile gown and sterile gloves throughout the procedure. The patient was prepped and draped in a sterile manner using chlorhexidine scrub after the appropriate level was percussed and confirmed by ultrasound. 1% lidocaine was used to anesthesize the skin, subcutaneous tissue, superior aspect of the rib periosteum and parietal pleura. A finder needle was then introduced over the superior aspect of the rib to locate the pleural fluid; 2colored fluid was aspirated at a depth of approximately 2 cm. A 10-blade scalpel was used to chaitanya the skin at the insertion site. The [id number] needle was then introduced through the skin incision into the pleural space using negative aspiration pressure and the red colometric indicator to confirm appropriate positioning of the needle. The thoracentesis catheter was then threaded without difficulty. 1200 ml of turbid colored fluid was removed without difficulty. The catheter was then removed. No immediate complications were noted during the procedure. A post-procedure chest x-ray is pending at the time of this note. The fluid will be sent for studies. Estimated blood loss is 0cc
--- NOTE | 2023-12-10 11:41 | XR ---
EXAMINATION TYPE: XR chest 1V DATE OF EXAM: 12/10/2023 11:18 AM CLINICAL INDICATION:Female, 68 years old with history of post thoracentesis; [facility] COMPARISON: Chest radiographs from same day. TECHNIQUE: XR chest 1V Frontal view of the chest. FINDINGS: Lungs/Pleura: Decrease in left pleural effusion. There remains bilateral pleural effusions present. T here is no evidence of pleural effusion, focal consolidation, or pneumothorax. Pulmonary vascularity: Unremarkable. Heart/mediastinum: Cardiomediastinal silhouette is unremarkable. Musculoskeletal: No acute osseous pathology. Surgical clips project over the left chest. IMPRESSION: Status post left thoracentesis with decrease in left pleural effusion. No evidence for pneumothorax.
[2023-12-10] MEDS: IPRATROPIUM-ALBUTEROL 3 ML NEB INHALATION SCH (11:52)
[2023-12-10] MEDS: methylPREDNISolone SOD SUCCI 40 MG/ML 1 ML VIAL IV SCH (13:15)
[2023-12-10] MEDS ORDERED: DEXTROSE 50% SYRINGE 50 ML IVP PRN ×2 (15:27)
--- NOTE | 2023-12-10 15:38 | P.HPIM ---
History of Present Illness This is a pleasant 68 years old female with past medical history of left breast cancer, she was on chemotherapy on and last October, she follows up with Dr. Gomez and she had a skin biopsy from her left mastectomy site which came back positive and she supposed to follow-up with Dr. Dee tomorrow. Presents today because of marked cough for the last 4-5 days which is nonproductive associated with dyspnea and some mild chest pain from her procedure but no other chest pain Patient was found to have left pleural effusion and underwent thoracocentesis and 1.2 L taken out She smokes about half pack per day and she was counseled to quit and she agrees to the nicotine patch. No alcohol or illicit drugs. She denies any change in urine or bowel habits. She works with no difficulty She is hemodynamically stable, currently she is on 2 L oxygen. At home she was not on oxygen She is mildly tachycardic with heart rate around 120 Sodium 129. Labs including CBC LFT BMP troponin, Liver enzymes were unremarkable ProBNP 159 Influenza A and type B, RSV, SARS (coronavirus) are and detected Chest x-ray showed left pleural effusion and consolidation , Repeat chest x-ray after thoracocentesis showing improvement EKG showing sinus tachycardia at [address]-T changes Review of Systems Review of systems CONSTITUTIONAL: No fever, no malaise, no fatigue. HEENT: No recent visual problems or hearing problems. Denied any sore throat. CARDIOVASCULAR: No orthopnea, PND, no palpitations, no syncope. PULMONARY: No chest wall tenderness, no hemoptysis. GASTROINTESTINAL: No diarrhea, no nausea, no vomiting, no abdominal pain. Normoactive bowel sounds. NEUROLOGICAL: No headaches, no weakness, no numbness. HEMATOLOGICAL: Denies any bleeding or petechiae. GENITOURINARY: Denies any burning micturition, frequency, or urgency. MUSCULOSKELETAL/RHEUMATOLOGICAL: Denies any joint pain, swelling, or any muscle pain. ENDOCRINE: Denies any polyuria or polydipsia. Past Medical History Past Medical History: Cancer, COPD, Eye Disorder Additional Past Medical History / Comment(s): MENINGITIS, 19 YRS OLD ovarian cyst burst., NO MEDS FOR COPD. , FLOATER RIGHT EYE., LEFT BREAST CANCER - pt had a recent PET scan that showed at spot that they wanted to check out for mets. History of Any Multi-Drug Resistant Organisms: None Reported Past Surgical History: Hysterectomy, Tonsillectomy Additional Past Surgical History / Comment(s): RUPTURED GRAFIAN FOLLICLE, HARITHA CATARACTS with lens implants Past Anesthesia/Blood Transfusion Reactions: No Reported Reaction Additional Past Anesthesia/Blood Transfusion Reaction / Comment(s): HX OF BLOOD TRANSFUSION-NO REACTION Past Psychological History: Anxiety Smoking Status: Current every day smoker, Light tobacco smoker Past Alcohol Use History: Occasional Past Drug Use History: None Reported - Past Family History Father Family Medical History: Cancer Additional Family Medical History / Comment(s): PANCREATIC CANCER Brother(s) Family Medical History: Cancer, Thyroid Disorder Additional Family Medical History / Comment(s): STOMACH CANCER Medications and Allergies Home Medications Medication Instructions Recorded Confirmed Type Levothyroxine Sodium [Synthroid] 88 mcg PO DAILY 03/10/23 12/10/23 History Azithromycin [Zithromax Z Pack] See Taper PO DIRECTED 12/10/23 12/10/23 History LORazepam [Ativan] 2 mg PO BID 12/10/23 12/10/23 History methylPREDNISolone [Medrol Dose See Taper PO DIRECTED 12/10/23 12/10/23 History Pack] Allergies Allergy/AdvReac Type Severity Reaction Status Date / Time No Known Allergies Allergy Verified 12/10/23 09:33 Physical Exam Vitals: Vital Signs Temp Pulse Resp BP Pulse Ox FiO2 12/10/23 12:02 104 H 12/10/23 11:52 100 12/10/23 09:48 120 H 12/10/23 09:38 106 H 12/10/23 09:32 50 12/10/23 08:50 108 H 26 H 125/81 92 L 12/10/23 08:47 18 12/10/23 08:19 98.8 F 110 H 24 124/87 91 L Intake and Output 12/10/23 12/10/23 12/10/23 06:59 14:59 22:59 Other: Weight 42.184 kg GENERAL: The patient is alert and oriented x3, not in any acute distress. Well developed, well nourished. HEENT: Pupils are round and equally reacting to light. EOMI. No scleral icterus. No conjunctival pallor. Normocephalic, atraumatic. No pharyngeal erythema. No thyromegaly. CARDIOVASCULAR: S1 and S2 present. No murmurs, rubs, or gallops. -PULMONARY: Chest is clear to auscultation, no wheezing , no crackles. His breath sounds on the left side ABDOMEN: Soft, nontender, nondistended, normoactive bowel sounds. No palpable organomegaly. MUSCULOSKELETAL: No joint swelling or deformity. EXTREMITIES: No cyanosis, clubbing, or pedal edema. NEUROLOGICAL: Gross neurological examination did not reveal any focal deficits. -SKIN: No rashes. no petechiae. Left breast scar from previous mastectomy with hardening skin and some nodules suspicious for cutaneous metastasis Results CBC & Chem 7: 12/10/23 08:23 12/10/23 08:23 Labs: Abnormal Lab Results - Last 24 Hours (Table) 12/10/23 Range/Units 08:23 Sodium 129 L (137-145) mmol/L Creatinine 0.34 L (0.52-1.04) mg/dL Glucose 137 H (74-99) mg/dL Assessment and Plan Assessment: Left pleural effusion, rule out malignant pleural effusion status post thoracocentesis on 12/10 with 1.2 L taken out Left breast cancer status post mastectomy, finished chemotherapy last October with 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 Continue same treatment. Continue with symptomatic treatment. Resume home medication. Monitor labs and vitals. DVT and GI prophylaxis. Further recommendations as per clinical course of the pat ient DVT prophylaxis: Subcutaneous heparin GI Prophylaxis: Pepcid Prognosis is guarded
[2023-12-10 17:48] LABS: Appearance,BF Hazy (Clear)
[2023-12-10 19:01] LABS: Glucose,Whole Blood 206 mg/dL (70-110)
[2023-12-10] MEDS: INSULIN ASPART (NovoLOG) 100 UNIT/ML VIAL SQ SCH (19:03)
[2023-12-10] MEDS: NICOTINE 21MG/24HR PATCH TRANSDERM SCH (20:05)
[2023-12-10] MEDS: FAMOTIDINE 20 MG/2 ML VIAL IV SCH (20:05)
[2023-12-10] MEDS: HEPARIN SODIUM,PORCINE 5,000 UNIT/ML 1 ML VIAL SQ SCH (20:05)
[2023-12-10 20:20] LABS: Glucose,Whole Blood 164 mg/dL (70-110)
[2023-12-10 20:56] LABS: Glucose, BF Source Pleural Fluid; Glucose, Body Fluid 75 mg/dL; LDH, Body Fluid Source Pleural Fluid; T. Protein, Body Fluid Source Pleural Fluid; Total Protein, Body Fluid >3600 mg/dL
[2023-12-10] MEDS: ACETAMINOPHEN TAB 325 MG TAB PO PRN (21:41)
[2023-12-11 07:35] LABS: Glucose,Whole Blood 124 mg/dL (70-110)
[2023-12-11] MEDS: LORazepam 1 MG TAB PO SCH (10:58)
[2023-12-11 12:04] LABS: Glucose,Whole Blood 160 mg/dL (70-110)
[2023-12-11 13:36] VITALS: BMI 16.0
--- NOTE | 2023-12-11 14:57 | P.PN ---
Subjective Progress Note Date: 12/11/23 This is a very pleasant 68-year-old female patient was coming into the emergency department because of shortness of breath. The patient was diagnosed having more differentiated ductal carcinoma and the patient underwent a left mastectomy on , the patient was found to have 10 out of 14 lymph nodes positive for metastatic ductal carcinoma. Based on that, the patient was given systemic chemotherapy and subsequent oral hormonal treatment. Most recent PET scan that was done on this patient on 12/04/2023 showed foci of uptake in the mediastinum and the left hilum compatible with metastases. New focus of activity in the liver suspicious for metastases. New focus of osseous metastases involving the thoracic vertebra in the right ilium and the left anterior rib. There is also a large left-sided pleural effusion. The patient is a chronic smoker. She was briefly placed on a BiPAP in the emergency depression of 08/06 and currently she is off the BiPAP on 2 L of oxygen by nasal cannula. She has diminished breath sounds in the left lung base. The rest of the blood work shows a WBC count of 8 hemoglobin 13.7 and a platelet count of 221. BUN is at 9 with a creatinine of 0.3 and his sodium level is at 129. The viral panel has been negative. On today's evaluation of 12/11/2023, I am seeing the patient for a follow-up. The patient is doing much better. The patient underwent a thoracentesis yesterday with a total of 1.2 L of fluid was aspirated from the left lung. There was no complication. The fluid is an exudate based on the protein and LDH criteria. Cytology still pending for now. Meanwhile, the patient remains on bronchodilators and the patient also on IV Solu-Medrol 40 mg every 6 hours regarding history of exacerbation. She is already feeling better. She has no specific complaints for now. No chest pain. Cough is improved. Objective - Vital Signs Vital signs: Vital Signs Temp 98.4 F 12/11/23 07:35 Pulse 96 12/11/23 08:12 Resp 17 12/11/23 07:35 BP 107/68 12/11/23 07:35 Pulse Ox 96 12/11/23 07:35 FiO2 50 12/10/23 09:32 Intake & Output 12/10/23 12/11/23 12/11/23 18:59 06:59 18:59 Intake Total 590 Balance 590 Weight 42.184 kg Intake: Oral 590 Other: Voiding Method Toilet # Voids 1 - Exam General appearance the patient is calm and comfortable currently on 2 L of oxygen nasal cannula. Her breathing is slightly labored. Head exam was generally normal. There was no scleral icterus or corneal arcus. Mucous membranes were moist. Neck was supple and without jugular venous distension, thyromegaly, or carotid bruits. Carotids were easily palpable bilaterally. There was no adenopathy. Lung sounds are diminished bilaterally specially left lung base and the patient has dullness to percussion. Cardiac exam revealed the PMI to be normally situated and sized. The rhythm was regular and no extrasystoles were noted during several minutes of auscultation. The first and second heart sounds were normal and physiologic splitting of the second heart sound was noted. There were no murmurs, rubs, clicks, or gallops. Abdominal exam revealed normal bowel sounds. The abdomen was soft, non-tender, and without masses, organomegaly, or appreciable enlargement of the abdominal aorta. Examination of the extremities revealed easily palpable radial, femoral and pedal pulses. There was no cyanosis, clubbing or edema. Skin the patient has a Mediport over the right IJ and she is post left ma stectomy. - Labs CBC & Chem 7: 12/10/23 08:23 12/10/23 08:23 Labs: Abnormal Lab Results - Last 24 Hours (Table) 12/10/23 12/10/23 12/10/23 Range/Units 11:08 19:00 20:18 POC Glucose (mg/dL) 206 H 164 H (70-110) mg/dL Fluid Appearance Hazy A (Clear) 12/11/23 Range/Units 07:34 POC Glucose (mg/dL) 124 H (70-110) mg/dL Fluid Appearance (Clear) Microbiology - Last 24 Hours (Table) 12/10/23 11:08 Gram Stain - Preliminary Pleural Fluid Body Fluid Culture - Preliminary Assessment and Plan Plan: Acute shortness of breath, multifactorial. She has COPD and a moderate size to large size left-sided pleural effusion which could be potentially metastatic/malignant in nature. As such, the patient underwent/therapeutic thoracentesis. She was briefly placed on BiPAP and currently she is on oxygen 2 L/min nasal cannula Acute hypoxic respiratory failure secondary to above currently on 2 L Left-sided pleural effusion status post drainage of 1.2 L of pleural fluid from the left lung. The fluid is an exudate, likely malignant. Awaiting cytology COPD, chronic smoker Metastatic breast cancer post left mastectomy and chemotherapy and hormonal treatment. The patient will be asked to see oncology for further details on her previous treatments. The most recent PET/CT that was done in 12/04/2023 showed metastatic disease with pulmonary, liver and skeletal involvement. History of meningitis History of an ovarian cyst Plan Awaiting for fluid cytology Clinically improved Continue bronchodilators and steroids Consult medical oncology Titrate oxygen flow to maintain saturation above 90% Oncology consultation is pending Will continue to follow.
[2023-12-11 17:16] LABS: Glucose,Whole Blood 148 mg/dL (70-110)
--- NOTE | 2023-12-11 18:12 | P.PN ---
Subjective This is a pleasant 68 years old female with past medical history of left breast cancer, she was on chemotherapy on stopped and last October, she follows up with Dr. Gomez and she had a skin biopsy from her left mastectomy site which came back positive and she supposed to follow-up with Dr. Dee tomorrow. Presents today because of marked cough for the last 4-5 days which is nonproductive associated with dyspnea and some mild chest pain from her procedure but no other chest pain Patient was found to have left pleural effusion and underwent thoracocentesis and 1.2 L taken out She smokes about half pack per day and she was counseled to quit and she agrees to the nicotine patch. No alcohol or illicit drugs. She denies any change in urine or bowel habits. She works with no difficulty She is hemodynamically stable, currently she is on 2 L oxygen. At home she was not on oxygen She is mildly tachycardic with heart rate around 120 Sodium 129. Labs including CBC LFT BMP troponin, Liver enzymes were unremarkable ProBNP 159 Influenza A and type B, RSV, SARS (coronavirus) are and detected Chest x-ray showed left pleural effusion and consolidation , Repeat chest x-ray after thoracocentesis showing improvement EKG showing sinus tachycardia at [address]-T changes 12/11/2023 pt is awake and alert at baseline , getting breathing treatment which she thiniks helping her and improving , at bed side and he agrees she is improving pt states her dyspnea is improving no chest pain still some coughing pending pleural fluid cytolgoy on iv solumedrol 40 mg q6hr Objective - Vital Signs Vital signs: Vital Signs Temp 98.4 F 12/11/23 07:35 Pulse 96 12/11/23 08:12 Resp 17 12/11/23 07:35 BP 107/68 12/11/23 07:35 Pulse Ox 96 12/11/23 07:35 FiO2 50 12/10/23 09:32 Intake & Output 12/10/23 12/11/23 12/11/23 18:59 06:59 18:59 Intake Total 590 Balance 590 Weight 42.184 kg Intake: Oral 590 Other: Voiding Method Toilet Toilet # Voids 1 - Exam GENERAL: The patient is alert and oriented x3, not in any acute distress. Well developed, well nourished. HEENT: Pupils are round and equally reacting to light. EOMI. No scleral icterus. No conjunctival pallor. Normocephalic, atraumatic. No pharyngeal erythema. No thyromegaly. CARDIOVASCULAR: S1 and S2 present. No murmurs, rubs, or gallops. -PULMONARY: Chest is clear to auscultation, no wheezing , no crackles. His breath sounds on the left side ABDOMEN: Soft, nontender, nondistended, normoactive bowel sounds. No palpable organomegaly. MUSCULOSKELETAL: No joint swelling or deformity. EXTREMITIES: No cyanosis, clubbing, or pedal edema. NEUROLOGICAL: Gross neurological examination did not reveal any focal deficits. -SKIN: No rashes. no petechiae. Left breast scar from previous mastectomy with hardening skin and some nodules suspicious for cutaneous metastasis - Labs CBC & Chem 7: 12/10/23 08:23 12/10/23 08:23 Labs: Abnormal Lab Results - Last 24 Hours (Table) 12/10/23 12/10/23 12/10/23 Range/Units 11:08 19:00 20:18 POC Glucose (mg/dL) 206 H 164 H (70-110) mg/dL Fluid Appearance Hazy A (Clear) 12/11/23 Range/Units 07:34 POC Glucose (mg/dL) 124 H (70-110) mg/dL Fluid Appearance (Clear) Microbiology - Last 24 Hours (Table) 12/10/23 11:08 Gram Stain - Preliminary Pleural Fluid Body Fluid Culture - Preliminary Assessment and Plan Assessment: Left pleural effusion, rule out malignant pleural effusion status post thoracocentesis on 12/10 with 1.2 L taken out Left breast cancer status post mastectomy, finished chemotherapy last October with 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 Continue same treatment. Continue with symptomatic treatment. Resume home medication. Monitor labs and vitals. DVT a nd GI prophylaxis. Further recommendations as per clinical course of the patient DVT prophylaxis: Subcutaneous heparin GI Prophylaxis: Pepcid Prognosis is guarded
[2023-12-11 20:09] LABS: Glucose,Whole Blood 175 mg/dL (70-110)
--- NOTE | 2023-12-11 22:05 | P.CONS ---
History of Present Illness - Reason for Consult Consult date: 12/11/23 breast cancer Requesting physician: Dre Georges - Chief Complaint SOB - History of Present Illness Ms Canchola is a pleasant white female, with a significnat history of metastatic breast cancer. She inittially presented with pain in her left breast. She therefore sought attention with her PCP, Dr. Lema. The patient had felt a mass in the central portion of the breast, which was confirmed on exam by her PCP. She therefore had a diagnostic mammogram on 06/12/22. This showed a large irregular, bilobed mass measuring 3.8 cm in the upper-outer quadrant. The patient had an ultrasound of the same day, that showed a 4.1 x 2.3 x 1.3 cm elongated irregular mass at 1:00, 8 cm from the nipple. In addition to that was an abnormally thickened lymph node measuring 9 mm. At 4:00, there was another irregular lesion measuring 1 x 0.7 cm and along the subareolar plane posteriorly a lesion measuring 1.8 x 0.9 cm. At the 11:00 there was a 0.9 x 0.7 cm lesion. The patient was therefore felt to have multicentric disease, and biopsy was recommended. Biopsy was performed on 06/26/22 for him to of the left breast masses and the axillary node. 1:00, and the 4:00 mass showed invasive ductal carcinoma grade 2, with the left axillary tail biopsy showing lymphoid tissue involved with grade 2 ductal carcinoma. Tumor morphology of all 3 specimens had similar appearance with ER and TX negative, and HER-2/audrey 0 by IHC. PET scan showed uptake in the breast lesions and left axilla. There was possibility of uptake in a left retropectoral nodes. There was no evidence of any distant metastatic disease. Incidental uptake was noted in the sigmoid colon, of uncertain etiology. The patient did have a colonoscopy subsequently in the third week of 08/23, that was negative. She then started neoadjuvant treatment with carboplatin/Taxol/Keytruda, on 08/12/22, with carboplatin plus immunotherapy given every 3 weeks, and Taxol weekly. She completed 4 cycles on 10/29/22. She then started Adriamycin/Cytoxan plus keytruda and completing those in 02/02/23. She was then continued on keytruda every 3 weeks. The patient had surgery on 03/16/23, with left modified radical mastectomy, and lymph node dissection. This showed multifocal invasive residual ductal carcinoma with margins negative. There appeared to be treatment effect in the breast. 10 out of 14 lymph nodes were involved, without evidence of definite response to presurgical therapy. It was decided to change adjuvant therapy, based on significant amount of residual disease. The patient had breast Next Testing done, that showed no targetable germ line mutation. Therefore Xeloda was added, to keytruda. Xeloda had to be held multiple times due to progressive skin toxicity. She was referred to radiation oncology during this time for adjuvant radiation/to avoid delays. On radiation oncology evaluation, she was noted to have a reddish confluent nodular rash involving the area of the incision on the left chest wall, that is felt to be suspicious for malignancy. She was referred back to surgery, and had a biopsy of this area on 11/18/23. Unfortunately biopsy revealed invasive mammary ductal carcinoma. PET/CT on 12/03/2023 revealed disease progression with uptake within mediastinal and hilar lymph nodes, uptake within the liver, new osseous metastases including thoracic vertebral bodies and right ilium and left anterior rib. Persistent intense uptake in the distal sigmoid colon. It was discussed wi th patient that unfortunately this would be considered extensive stage disease and treatment intent would be palliative. Clinic f/u is planned to discuss systemic chemo options. Patient presented to the emergency room with complaints of worsening shortness of breath over the last 2 weeks. Patient denies fever and chills. Denies headache, visual changes. Upon admission chest x-ray showed moderate left pleural effusion new from 10/16/2022 with small right pleural effusion. Patient was evaluated by pulmonology and underwent left thoracentesis with 1200 mL removed. Cytology is pending. Patient reporting significant improvement in breathing s/p thoracentesis. RSV/COVID/influenza negative. Patient is afebrile, SpO2 93%. CBC reviewed, WBC 8.5, platelets 13.7, platelets 221,000. Review of Systems 10 point ROS is negative except as stated in the HPI Past Medical History Past Medical History: Cancer, COPD, Eye Disorder Additional Past Medical History / Comment(s): MENINGITIS, 19 YRS OLD ovarian cyst burst., NO MEDS FOR COPD. , FLOATER RIGHT EYE., LEFT BREAST CANCER - pt had a recent PET scan that showed at spot that they wanted to check out for mets. History of Any Multi-Drug Resistant Organisms: None Reported Past Surgical History: Hysterectomy, Tonsillectomy Additional Past Surgical History / Comment(s): RUPTURED GRAFIAN FOLLICLE, HARITHA CATARACTS with lens implants Past Anesthesia/Blood Transfusion Reactions: No Reported Reaction Additional Past Anesthesia/Blood Transfusion Reaction / Comm: HX OF BLOOD TRANSFUSION-NO REACTION Past Psychological History: Anxiety Smoking Status: Current every day smoker, Light tobacco smoker Past Alcohol Use History: Occasional Past Drug Use History: None Reported - Past Family History Father Family Medical History: Cancer Additional Family Medical History / Comment(s): PANCREATIC CANCER Brother(s) Family Medical History: Cancer, Thyroid Disorder Additional Family Medical History / Comment(s): STOMACH CANCER Medications and Allergies Home Medications Medication Instructions Recorded Confirmed Type Levothyroxine Sodium [Synthroid] 88 mcg PO DAILY 03/10/23 12/10/23 History Azithromycin [Zithromax Z Pack] See Taper PO DIRECTED 12/10/23 12/10/23 History LORazepam [Ativan] 2 mg PO BID 12/10/23 12/10/23 History methylPREDNISolone [Medrol Dose See Taper PO DIRECTED 12/10/23 12/10/23 History Pack] Allergies Allergy/AdvReac Type Severity Reaction Status Date / Time No Known Allergies Allergy Verified 12/10/23 09:33 Physical Exam Vitals: Vital Signs Temp Pulse Pulse Pulse Resp BP BP 12/11/23 11:31 92 12/11/23 11:20 94 12/11/23 08:12 96 12/11/23 07:57 98 12/11/23 07:35 98.4 F 76 17 107/68 12/11/23 02:00 98.9 F 108 H 16 121/74 12/10/23 20:13 106 H 12/10/23 20:01 105 H 12/10/23 20:00 97.9 F 96 16 100/65 12/10/23 18:41 97.8 F 95 20 104/67 12/10/23 18:00 103 H 20 108/73 12/10/23 17:00 98 20 113/77 12/10/23 16:08 102 H 12/10/23 16:00 98 22 98/76 12/10/23 15:55 97 12/10/23 15:00 98 20 98/60 12/10/23 14:00 100 20 112/93 12/10/23 13:00 98 18 102/67 Pulse Ox 12/11/23 11:31 12/11/23 11:20 93 L 12/11/23 08:12 12/11/23 07:57 12/11/23 07:35 96 12/11/23 02:00 99 12/10/23 20:13 12/10/23 20:01 12/10/23 20:00 95 12/10/23 18:41 94 L 12/10/23 18:00 92 L 12/10/23 17:00 91 L 12/10/23 16:08 12/10/23 16:00 92 L 12/10/23 15:55 12/10/23 15:00 91 L 12/10/23 14:00 90 L 12/10/23 13:00 92 L Intake and Output 12/10/23 12/11/23 12/11/23 22:59 06:59 14:59 Intake Total 590 Balance 590 Intake: Oral 590 Other: Voiding Method Toilet Toilet # Voids 1 - Constitutional General appearance: average body habitus, no acute distress - EENT Eyes: anicteric sclerae ENT: hearing grossly normal - Respiratory Respiratory: left: diminished (mildly diminished left lung field ) - Cardiovascular Rhythm: regular Heart sounds: normal: S1, S2 - Gastrointestinal General gastrointestinal: soft, no tenderness - Integumentary Integumentary: no cyanotic, no jaundiced - Neurologic grossly intact - Musculoskeletal Musculoskeletal: strength equal bilaterally - Psychiatric Psychiatric: A&O x's 3 Results CBC & Chem 7: 12/10/23 08:23 12/10/23 08:23 Labs: Abnormal Lab Results - Last 24 Hours (Table) 12/10/23 12/10/23 12/10/23 Range/Units 11:08 19:00 20:18 POC Glucose (mg/dL) 206 H 164 H (70-110) mg/dL Fluid Appearance Hazy A (Clear) 12/11/23 12/11/23 Range/Units 07:34 12:03 POC Glucose (mg/dL) 124 H 160 H (70-110) mg/dL Fluid Appearance (Clear) Microbiology - Last 24 Hours (Table) 12/10/23 11:08 Gram Stain - Preliminary Pleural Fluid Body Fluid Culture - Preliminary Comments: PET CT reviewed Chest x-ray: report reviewed Assessment and Plan (1) COPD exacerbation Current Visit: Yes Status: Acute Priority: High Code(s): J44.1 - CHRONIC OBSTRUCTIVE PULMONARY DISEASE W (ACUTE) EXACERBATION SNOMED Code(s): 775541007 (2) Metastasis from breast cancer Current Visit: Yes Status: Acute Priority: High Code(s): C79.9 - SECONDARY MALIGNANT NEOPLASM OF UNSPECIFIED SITE; C50.919 - MALIGNANT NEOPLASM OF UNSP SITE OF UNSPECIFIED FEMALE BREAST SNOMED Code(s): 369592877 (3) Pleural effusion Current Visit: Yes Status: Acute Priority: High Code(s): J90 - PLEURAL EFFUSION, NOT ELSEWHERE CLASSIFIED SNOMED Code(s): 30147460 Plan: Metastatic breast cancer -Full history in HPI - Has most recently been on treatment with xeloda and keytruda -Unfortunately, left chest wall biopsy on 11/18/23 revealed invasive mammary ductal carcinoma. PET/CT on 12/03/2023 revealed disease progression with uptake within mediastinal and hilar lymph nodes, uptake within the liver, new osseous metastases including thoracic vertebral bodies and right ilium and left anterior rib. Persistent intense uptake in the distal sigmoid colon. It was discussed with patient that unfortunately this would be considered extensive stage disease and treatment intent would be palliative -Will request NGS, PDL-1 on pathology for targetable treatments. Clinic f/u is planned to discuss further treatment options Pleural effusion: -Presented to the emergency room with complaints of worsening shortness of breath over the last 2 weeks. Chest x-ray showed moderate left pleural effusion. -Underwent left thoracentesis with 1200 mL removed. Cytology is pending. Concern for malignant effusion. Patient reporting significant improvement in breathing s/p thoracentesis. attests: I have seen and examined patient, performed H&P, developed impression and plan of care. Discussed with dictator. Agree with documentation, dictated as a scribe
[2023-12-12 07:09] LABS: Glucose,Whole Blood 115 mg/dL (70-110)
[2023-12-12 08:03] LABS: African American GFR (CKD) >90 (>60 ml/min/1.73 sqM); Anion Gap 3 mmol/L; Blood Urea Nitrogen 13 mg/dL (7-17); Calcium 9.2 mg/dL (8.4-10.2); Carbon Dioxide 28 mmol/L (22-30); Chloride 100 mmol/L (98-107); Glucose 118 mg/dL (74-99); Non-African American GFR(CKD) >90 (>60 ml/min/1.73 sqM); Potassium 4.5 mmol/L (3.5-5.1); Sodium 131 mmol/L (137-145)
--- NOTE | 2023-12-12 12:09 | P.PN ---
Subjective Progress Note Date: 12/12/23 This is a very pleasant 68-year-old female patient was coming into the emergency department because of shortness of breath. The patient was diagnosed having more differentiated ductal carcinoma and the patient underwent a left mastectomy on , the patient was found to have 10 out of 14 lymph nodes positive for metastatic ductal carcinoma. Based on that, the patient was given systemic chemotherapy and subsequent oral hormonal treatment. Most recent PET scan that was done on this patient on 12/04/2023 showed foci of uptake in the mediastinum and the left hilum compatible with metastases. New focus of activity in the liver suspicious for metastases. New focus of osseous metastases involving the thoracic vertebra in the right ilium and the left anterior rib. There is also a large left-sided pleural effusion. The patient is a chronic smoker. She was briefly placed on a BiPAP in the emergency depression of 08/06 and currently she is off the BiPAP on 2 L of oxygen by nasal cannula. She has diminished breath sounds in the left lung base. The rest of the blood work shows a WBC count of 8 hemoglobin 13.7 and a platelet count of 221. BUN is at 9 with a creatinine of 0.3 and his sodium level is at 129. The viral panel has been negative. On today's evaluation of 12/11/2023, I am seeing the patient for a follow-up. The patient is doing much better. The patient underwent a thoracentesis yesterday with a total of 1.2 L of fluid was aspirated from the left lung. There was no complication. The fluid is an exudate based on the protein and LDH criteria. Cytology still pending for now. Meanwhile, the patient remains on bronchodilators and the patient also on IV Solu-Medrol 40 mg every 6 hours regarding history of exacerbation. She is already feeling better. She has no specific complaints for now. No chest pain. Cough is improved. On 12/12/2023, the patient is complaining of some ongoing shortness of breath and this is related to her underlying COPD and left-sided pleural effusion. Note that the left-sided pleural effusion is an exudate and I performed a thoracent esis and I am waiting the final pleural fluid cytology. Meanwhile, the patient remains on DuoNeb updrafts and the patient is also on IV Solu-Medrol 40 mg every 6 hours. No altered mentation. No interval worsening in oxygenation and the patient remains on 3 L O2 nasal cannula with a pulse ox of 98%. Sodium level is at 131, potassium is at 4.5 and BUN is at 13 greater than 0.4. Glucose 115 Objective - Vital Signs Vital signs: Vital Signs Temp 98.3 F 12/12/23 07:09 Pulse 100 12/12/23 08:52 Resp 16 12/12/23 07:09 BP 109/67 12/12/23 07:09 Pulse Ox 98 12/12/23 08:40 FiO2 50 12/10/23 09:32 Intake & Output 12/11/23 12/12/23 12/12/23 18:59 06:59 18:59 Weight 42.184 kg Other: Voiding Method Toilet Toilet # Voids 2 2 - Exam General appearance the patient is calm and comfortable currently on 2 L of oxygen nasal cannula. Her breathing is slightly labored. Head exam was generally normal. There was no scleral icterus or corneal arcus. Mucous membranes were moist. Neck was supple and without jugular venous distension, thyromegaly, or carotid bruits. Carotids were easily palpable bilaterally. There was no adenopathy. Lung sounds are diminished bilaterally specially left lung base and the patient has dullness to percussion. Cardiac exam revealed the PMI to be normally situated and sized. The rhythm was regular and no extrasystoles were noted during several minutes of auscultation. The first and second heart sounds were normal and physiologic splitting of the second heart sound was noted. There were no murmurs, rubs, clicks, or gallops. Abdominal exam revealed normal bowel sounds. The abdomen was soft, non-tender, and without masses, organomegaly, or appreciable enlargement of the abdominal aorta. Examination of the extremities revealed easily palpable radial, femoral and pedal pulses. There was no cyanosis, clubbing or edema. Skin the patient has a Mediport over the right IJ and she is post left mastectomy. - Labs CBC & Chem 7: 12/10/23 08:23 12/12/23 06:47 Labs: Abnormal Lab Results - Last 24 Hours (Table) 12/11/23 12/11/23 12/11/23 Range/Units 12:03 17:15 19:59 Sodium (137-145) mmol/L Creatinine (0.52-1.04) mg/dL Glucose (74-99) mg/dL POC Glucose (mg/dL) 160 H 148 H 175 H (70-110) mg/dL 12/12/23 12/12/23 Range/Units 06:47 07:08 Sodium 131 L (137-145) mmol/L Creatinine 0.42 L (0.52-1.04) mg/dL Glucose 118 H (74-99) mg/dL POC Glucose (mg/dL) 115 H (70-110) mg/dL Microbiology - Last 24 Hours (Table) 12/10/23 11:08 Gram Stain - Preliminary Pleural Fluid Body Fluid Culture - Preliminary Assessment and Plan Plan: Acute shortness of breath, multifactorial. She has COPD and a moderate size to large size left-sided pleural effusion which could be potentially metastatic/malignant in nature. As such, the patient underwent/therapeutic thoracentesis. She was briefly placed on BiPAP and currently she is on oxygen 2 L/min nasal cannula Acute hypoxic respiratory failure secondary to above currently on 2 L Left-sided pleural effusion status post drainage of 1.2 L of pleural fluid from the left lung. The fluid is an exudate, likely malignant. Awaiting cytology COPD, chronic smoker Metastatic breast cancer post left mastectomy and chemotherapy and hormonal treatment. The patient will be asked to see oncology for further details on her previous treatments. The most recent PET/CT that was done in 12/04/2023 showed metastatic disease with pulmonary, liver and skeletal involvement. History of meningitis History of an ovarian cyst Plan No significant clinical change and in my opinion the overall condition is stable compared to yesterday. The patient showed improvement following the thoracentesis. However she does have chronic dyspnea related to COPD and a residual chronic left-sided pleural effusion has been present. Awaiting for fluid cytology Continue bronchodilators and steroids Consult medical oncology Titrate oxygen flow to maintain saturation above 90% Oncology consultation is pending Will continue to follow.
[2023-12-12 12:35] LABS: Glucose,Whole Blood 135 mg/dL (70-110)
[2023-12-12] MEDS ORDERED: HYDROmorphone 0.5 MG/0.5 ML SYRINGE IVP PRN (12:42)
[2023-12-12] MEDS: LEVOTHYROXINE 88 MCG TAB PO SCH (13:14)
[2023-12-12] MEDS: HYDROcodone/APAP 5-325MG 1 EACH TAB PO PRN (13:31)
[2023-12-12 17:30] LABS: Glucose,Whole Blood 137 mg/dL (70-110)
--- NOTE | 2023-12-12 18:47 | P.PN ---
Subjective This is a pleasant 68 years old female with past medical history of left breast cancer, she was on chemotherapy on stopped and last October, she follows up with Dr. Gomez and she had a skin biopsy from her left mastectomy site which came back positive and she supposed to follow-up with Dr. Dee tomorrow. Presents today because of marked cough for the last 4-5 days which is nonproductive associated with dyspnea and some mild chest pain from her procedure but no other chest pain Patient was found to have left pleural effusion and underwent thoracocentesis and 1.2 L taken out She smokes about half pack per day and she was counseled to quit and she agrees to the nicotine patch. No alcohol or illicit drugs. She denies any change in urine or bowel habits. She works with no difficulty She is hemodynamically stable, currently she is on 2 L oxygen. At home she was not on oxygen She is mildly tachycardic with heart rate around 120 Sodium 129. Labs including CBC LFT BMP troponin, Liver enzymes were unremarkable ProBNP 159 Influenza A and type B, RSV, SARS (coronavirus) are and detected Chest x-ray showed left pleural effusion and consolidation , Repeat chest x-ray after thoracocentesis showing improvement EKG showing sinus tachycardia at [address]-T changes 12/11/2023 pt is awake and alert at baseline , getting breathing treatment which she thiniks helping her and improving , at bed side and he agrees she is improving pt states her dyspnea is improving no chest pain still some coughing pending pleural fluid cytolgoy on iv solumedrol 40 mg q6hr 12/12/2023 Awake and alert at baseline Mildly tachypneic Status post thoracocentesis and did cytology result Last night could not sleep because of pain at the mastectomy site radiating to the left arm most likely related to her cancer diagnosis *Pain medication today with IV Dilaudid on [place] Objective - Vital Signs Vital signs: Vital Signs Temp 98.3 F 12/12/23 07:09 Pulse 100 12/12/23 11:59 Resp 16 12/12/23 07:09 BP 109/67 12/12/23 07:09 Pulse Ox 98 12/12/23 08:40 FiO2 50 12/10/23 09:32 Intake & Output 12/11/23 12/12/23 12/12/23 18:59 06:59 18:59 Weight 42.184 kg Other: Voiding Method Toilet Toilet Toilet # Voids 2 2 - Exam GENERAL: The patient is alert and oriented x3, not in any acute distress. Well developed, well nourished. HEENT: Pupils are round and equally reacting to light. EOMI. No scleral icterus. No conjunctival pallor. Normocephalic, atraumatic. No pharyngeal erythema. No thyromegaly. CARDIOVASCULAR: S1 and S2 present. No murmurs, rubs, or gallops. -PULMONARY: Chest is clear to auscultation, no wheezing , no crackles. His breath sounds on the left side ABDOMEN: Soft, nontender, nondistended, normoactive bowel sounds. No palpable organomegaly. MUSCULOSKELETAL: No joint swelling or deformity. EXTREMITIES: No cyanosis, clubbing, or pedal edema. NEUROLOGICAL: Gross neurological examination did not reveal any focal deficits. -SKIN: No rashes. no petechiae. Left breast scar from previous mastectomy with hardening skin and some nodules suspicious for cutaneous metastasis - Labs CBC & Chem 7: 12/10/23 08:23 12/12/23 06:47 Labs: Abnormal Lab Results - Last 24 Hours (Table) 12/11/23 12/11/23 12/12/23 Range/Units 17:15 19:59 06:47 Sodium 131 L (137-145) mmol/L Creatinine 0.42 L (0.52-1.04) mg/dL Glucose 118 H (74-99) mg/dL POC Glucose (mg/dL) 148 H 175 H (70-110) mg/dL 12/12/23 12/12/23 Range/Units 07:08 12:33 Sodium (137-145) mmol/L Creatinine (0.52-1.04) mg/dL Glucose (74-99) mg/dL POC Glucose (mg/dL) 115 H 135 H (70-110) mg/dL Microbiology - Last 24 Hours (Table) 12/10/23 11:08 Gram Stain - Preliminary Pleural Fluid Body Fluid Culture - Preliminary Assessment and Plan Assessment: Left pleural effusion, rule out malignant pleural effusion status post thoracocentesis on 12/10 with 1.2 L taken out Left breast cancer status post mastectomy, finished chemotherapy last October with 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 Continue same treatment. Continue with symptomatic treatment. Resume home medication. Monitor labs and vitals. DVT and GI prophylaxis. Further recommendations as per clinical course of the patient DVT prophylaxis: Subcutaneous heparin GI Prophylaxis: Pepcid Prognosis is guarded
[2023-12-12 20:08] LABS: Glucose,Whole Blood 178 mg/dL (70-110)
[2023-12-13 07:24] LABS: Glucose,Whole Blood 123 mg/dL (70-110)
[2023-12-13 11:58] LABS: Glucose,Whole Blood 132 mg/dL (70-110)
--- NOTE | 2023-12-13 13:50 | P.PN ---
Subjective Progress Note Date: 12/13/23 This is a very pleasant 68-year-old female patient was coming into the emergency department because of shortness of breath. The patient was diagnosed having more differentiated ductal carcinoma and the patient underwent a left mastectomy on , the patient was found to have 10 out of 14 lymph nodes positive for metastatic ductal carcinoma. Based on that, the patient was given systemic chemotherapy and subsequent oral hormonal treatment. Most recent PET scan that was done on this patient on 12/04/2023 showed foci of uptake in the mediastinum and the left hilum compatible with metastases. New focus of activity in the liver suspicious for metastases. New focus of osseous metastases involving the thoracic vertebra in the right ilium and the left anterior rib. There is also a large left-sided pleural effusion. The patient is a chronic smoker. She was briefly placed on a BiPAP in the emergency depression of 08/06 and currently she is off the BiPAP on 2 L of oxygen by nasal cannula. She has diminished breath sounds in the left lung base. The rest of the blood work shows a WBC count of 8 hemoglobin 13.7 and a platelet count of 221. BUN is at 9 with a creatinine of 0.3 and his sodium level is at 129. The viral panel has been negative. On today's evaluation of 12/11/2023, I am seeing the patient for a follow-up. The patient is doing much better. The patient underwent a thoracentesis yesterday with a total of 1.2 L of fluid was aspirated from the left lung. There was no complication. The fluid is an exudate based on the protein and LDH criteria. Cytology still pending for now. Meanwhile, the patient remains on bronchodilators and the patient also on IV Solu-Medrol 40 mg every 6 hours regarding history of exacerbation. She is already feeling better. She has no specific complaints for now. No chest pain. Cough is improved. On 12/12/2023, the patient is complaining of some ongoing shortness of breath and this is related to her underlying COPD and left-sided pleural effusion. Note that the left-sided pleural effusion is an exudate and I performed a thoracent esis and I am waiting the final pleural fluid cytology. Meanwhile, the patient remains on DuoNeb updrafts and the patient is also on IV Solu-Medrol 40 mg every 6 hours. No altered mentation. No interval worsening in oxygenation and the patient remains on 3 L O2 nasal cannula with a pulse ox of 98%. Sodium level is at 131, potassium is at 4.5 and BUN is at 13 greater than 0.4. Glucose 115 12/13/2023, the patient is being seen for a follow-up. No new complaints. Still having shortness of breath which is essentially due to her COPD. Left-sided pleural effusion was drained and the fluid cytology is still pending for now. The patient has no new complaints otherwise. The patient remains on DuoNeb and IV Solu-Medrol. Pleural fluid cytology still pending for now. No new labs are available from today patient is resting comfortably in bed and the patient is currently on room air oxygen with a pulse ox of 97%. No chest pain. No pleurisy or hemoptysis. Objective - Vital Signs Vital signs: Vital Signs Temp 98.3 F 12/13/23 07:26 Pulse 112 H 12/13/23 09:32 Resp 17 12/13/23 07:26 BP 110/71 12/13/23 07:26 Pulse Ox 96 12/13/23 07:26 FiO2 50 12/10/23 09:32 Intake & Output 12/12/23 12/13/23 12/13/23 18:59 06:59 18:59 Intake Total 1620 Balance 1620 Intake: Oral 1620 Other: Voiding Method Toilet Toilet Toilet # Voids 3 1 - Exam General appearance the patient is calm and comfortable currently on 2 L of oxygen nasal cannula. Her breathing is slightly labored. Head exam was generally normal. There was no scleral icterus or corneal arcus. Mucous membranes were moist. Neck was supple and without jugular venous distension, thyromegaly, or carotid bruits. Carotids were easily palpable bilaterally. There was no adenopathy. Lung sounds are diminished bilaterally specially left lung base and the patient has dullness to percussion. Cardiac exam revealed the PMI to be normally situated and sized. The rhythm was regular and no extrasystoles were noted during several minutes of auscultation. The first and second heart sounds were normal and physiologic splitting of the second heart sound was noted. There were no murmurs, rubs, clicks, or gallops. Abdominal exam revealed normal bowel sounds. The abdomen was soft, non-tender, and without masses, organomegaly, or appreciable enlargement of the abdominal aorta. Examination of the extremities revealed easily palpable radial, femoral and pedal pulses. There was no cyanosis, clubbing or edema. Skin the patient has a Mediport over the right IJ and she is post left mastectomy. - Labs CBC & Chem 7: 12/10/23 08:23 12/12/23 06:47 Labs: Abnormal Lab Results - Last 24 Hours (Table) 12/12/23 12/12/23 12/12/23 Range/Units 12:33 17:28 20:06 POC Glucose (mg/dL) 135 H 137 H 178 H (70-110) mg/dL 12/13/23 Range/Units 07:23 POC Glucose (mg/dL) 123 H (70-110) mg/dL Microbiology - Last 24 Hours (Table) 12/10/23 11:08 Gram Stain - Preliminary Pleural Fluid Body Fluid Culture - Preliminary Assessment and Plan Plan: Acute shortness of breath, multifactorial. She has COPD and a moderate size to large size left-sided pleural effusion which could be potentially metastatic/malignant in nature. As such, the patient underwent/therapeutic thoracentesis. She was briefly placed on BiPAP and currently she is on room air oxygen Acute hypoxic respiratory failure secondary to above currently on room air oxygen Left-sided pleural effusion status post drainage of 1.2 L of pleural fluid from the left lung. The fluid is an exudate, likely malignant. Awaiting cytology COPD, chronic smoker Metastatic breast cancer post left mastectomy and chemotherapy and hormonal treatment. The patient will be asked to see oncology for further details on her previous treatments. The most recent PET/CT that was done in 12/04/2023 showed metastatic disease with pulmonary, liver and skeletal involvement. History of meningitis History of an ovarian cyst Plan Optimize COPD, continue bronchodilators and steroids Awaiting for fluid cytology Consult medical oncology will likely need systemic treatment on outpatient basis regarding metastatic breast cancer Titrate oxygen flow to maintain saturation above 90% Will continue to follow.
--- NOTE | 2023-12-13 16:03 | P.PN ---
Subjective This is a pleasant 68 years old female with past medical history of left breast cancer, she was on chemotherapy on stopped and last October, she follows up with Dr. Gomez and she had a skin biopsy from her left mastectomy site which came back positive and she supposed to follow-up with Dr. Dee tomorrow. Presents today because of marked cough for the last 4-5 days which is nonproductive associated with dyspnea and some mild chest pain from her procedure but no other chest pain Patient was found to have left pleural effusion and underwent thoracocentesis and 1.2 L taken out She smokes about half pack per day and she was counseled to quit and she agrees to the nicotine patch. No alcohol or illicit drugs. She denies any change in urine or bowel habits. She works with no difficulty She is hemodynamically stable, currently she is on 2 L oxygen. At home she was not on oxygen She is mildly tachycardic with heart rate around 120 Sodium 129. Labs including CBC LFT BMP troponin, Liver enzymes were unremarkable ProBNP 159 Influenza A and type B, RSV, SARS (coronavirus) are and detected Chest x-ray showed left pleural effusion and consolidation , Repeat chest x-ray after thoracocentesis showing improvement EKG showing sinus tachycardia at [address]-T changes 12/11/2023 pt is awake and alert at baseline , getting breathing treatment which she thiniks helping her and improving , at bed side and he agrees she is improving pt states her dyspnea is improving no chest pain still some coughing pending pleural fluid cytolgoy on iv solumedrol 40 mg q6hr 12/12/2023 Awake and alert at baseline Mildly tachypneic Status post thoracocentesis and did cytology result Last night could not sleep because of pain at the mastectomy site radiating to the left arm most likely related to her cancer diagnosis *Pain medication today with IV Dilaudid on [place] 12/13/2023 Patient breathing is improving She is status post left thoracocentesis. Cytology is pending Oncology team on the case for left breast cancer status post mastectomy. Pain at the cancer site is better controlled with narcotics she couldn't sleep last night She looks more relaxed today Pain management call or set up with the patient and she verbalized understanding and acceptance. Family/ at bedside Objective - Vital Signs Vital signs: Vital Signs Temp 98.0 F 12/13/23 12:39 Pulse 109 H 12/13/23 12:39 Resp 17 12/13/23 12:39 BP 103/65 12/13/23 12:39 Pulse Ox 97 12/13/23 12:39 FiO2 50 12/10/23 09:32 Intake & Output 12/12/23 12/13/23 12/13/23 18:59 06:59 18:59 Intake Total 1620 Balance 1620 Intake: Oral 1620 Other: Voiding Method Toilet Toilet Toilet # Voids 3 1 - Exam GENERAL: The patient is alert and oriented x3, not in any acute distress. Well developed, well nourished. HEENT: Pupils are round and equally reacting to light. EOMI. No scleral icterus. No conjunctival pallor. Normocephalic, atraumatic. No pharyngeal erythema. No thyromegaly. CARDIOVASCULAR: S1 and S2 present. No murmurs, rubs, or gallops. -PULMONARY: Chest is clear to auscultation, no wheezing , no crackles. His breath sounds on the left side ABDOMEN: Soft, nontender, nondistended, normoactive bowel sounds. No palpable organomegaly. MUSCULOSKELETAL: No joint swelling or deformity. EXTREMITIES: No cyanosis, clubbing, or pedal edema. NEUROLOGICAL: Gross neurological examination did not reveal any focal deficits. -SKIN: No rashes. no petechiae. Left breast scar from previous mastectomy with hardening skin and some nodules suspicious for cutaneous metastasis - Labs CBC & Chem 7: 12/10/23 08:23 12/12/23 06:47 Labs: Abnormal Lab Results - Last 24 Hours (Table) 12/12/23 12/12/23 12/13/23 Range/Units 17:28 20:06 07:23 POC Glucose (mg/dL) 137 H 178 H 123 H (70-110) mg/dL 12/13/23 Range/Units 11:57 POC Glucose (mg/dL) 132 H (70-110) mg/dL Microbiology - Last 24 Hours (Table) 12/10/23 11:08 Gram Stain - Preliminary Pleural Fluid Body Fluid Culture - Preliminary Assessment and Plan Assessment: Left pleural effusion, rule out malignant pleural effusion status post thoracocentesis on 12/10 with 1.2 L taken out Left breast cancer status post mastectomy, finished chemotherapy last October with 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 Continue same treatment. Continue with symptomatic treatment. Resume home medication. Monitor labs and vitals. DVT and GI prophylaxis. Further recommendations as per clinical course of the patient DVT prophylaxis: Subcutaneous heparin GI Prophylaxis: Pepcid Prognosis is guarded
[2023-12-13 17:53] LABS: Glucose,Whole Blood 126 mg/dL (70-110)
[2023-12-13] MEDS ORDERED: NITROGLYCERIN SL TABS 0.4 MG TAB SUBLINGUAL PRN (18:01)
[2023-12-13 20:09] LABS: Glucose,Whole Blood 160 mg/dL (70-110)
[2023-12-13] MEDS: DOCUSATE 100 MG CAP PO SCH (20:35)
[2023-12-14 07:15] LABS: Glucose,Whole Blood 100 mg/dL (70-110)
--- NOTE | 2023-12-14 11:58 | P.CRDCN ---
History of Present Illness History of present illness: HISTORY OF PRESENT ILLNESS: This is a 68-year-old female with a past medical history significant for hypothyroidism and breast cancer with metastasis to the lung. Patient does not follow with a ore feeder. We have been asked to see the patient in consultation for chest pain. Patient examined at the bedside. Patient states she was initially diagnosed with lung cancer back in August 2022. She states that she did chemotherapy and then was placed on a maintenance oral chemotherapy . She states that the oral chemotherapy burned her hands and feet so it was discontinued. She states in the middle of November she started to notice bumps coming back in her breast again. She underwent a left chest wall biopsy in November 2023 revealing invasive mammary ductal carcinoma. She also underwent a PET scan in the beginning of December 2023 revealing disease progression with uptake within mediastinal and hilar lymph nodes uptake within the liver, new osseous metastasis including thoracic vertebral bodies and right ilium and left anterior rib. Persistent intense uptake in the distal sigmoid colon. The patient states that she had an episode of chest discomfort yesterday. She sta dean everybody has been telling her that she needs to increase her oral intake and increase her protein. She states that she had a large meal yesterday and afterwards began to to feel full and had chest discomfort. She states that she received an antacid which helped her discomfort. She has had no further episodes of chest pain since that time. She currently denies shortness of breath. She is status post left sided thoracentesis. Cytology is currently pending. Vital signs are stable. She is a former cigarette smoker and states that she smoked for approximately 40 years. DIAGNOSTICS: - EKG reveals sinus tachycardia with no signs of acute ischemia. - Laboratory data: Troponin negative x 3 - Current home cardiac medications include none. REVIEW OF SYSTEMS: At the time of my exam: CONSTITUTIONAL: Denies fever or chills. HEENT: Denies blurred vision, vision changes, or eye pain. Denies hemoptysis CARDIOVASCULAR: Denies chest pain. Denies orthopnea. Denies PND. Denies palpitations RESPIRATORY: Denies shortness of breath. GASTROINTESTINAL: Denies abdominal pain. Denies nausea or vomiting. HEMATOLOGIC: Denies bleeding disorders. GENITOURINARY: Denies any blood in urine. SKIN: Denies pruitis. Denies rash. PHYSICAL EXAM: VITAL SIGNS: Reviewed. GENERAL: Well-developed in no acute distress. HEENT: Head is normocephalic. Pupils are equal, round. Sclerae anicteric. Mucous membranes of the mouth are moist. Neck supple. No JVD or thyromegaly LUNGS: Respirations even and unlabored. Lungs essentially clear to auscultation bilaterally. HEART: Regular rate and rhythm. S1 and S2 heard. ABDOMEN: Soft. Nondistended. Nontender. EXTREMITIES: Normal range of motion. No clubbing or cyanosis. Peripheral pulses intact. No lower extremity edema NEUROLOGIC: Awake and alert. Oriented x 3. ASSESSMENT: Shortness of breath Acute hypoxic respiratory failure requiring supplemental oxygen Left pleural effusion, status post thoracentesis Chest pain, atypical, troponin negative x 3 Metastatic breast cancer COPD exacerbation Former nicotine dependence PLAN: An acute coronary event has been ruled out Obtain 2D echo to assess cardiac structure and function Await cytology of pleural fluid Oncology following. Patient to follow-up post discharge to further determine course of action and possible treatment options If 2D echo does not reveal any significant abnormalities, no further testing from a cardiology standpoint Nurse practitioner note has been reviewed by physician. Signing provider agrees with the documented findings, assessment, and plan of care documented by PROJECTOR BOOTH OPERATOR as a scribe. Past Medical History Past Medical History: Cancer, COPD, Eye Disorder Additional Past Medical History / Comment(s): MENINGITIS, 19 YRS OLD ovarian cyst burst., NO MEDS FOR COPD. , FLOATER RIGHT EYE., LEFT BREAST CANCER - pt had a recent PET scan that showed at spot that they wanted to check out for mets. History of Any Multi-Drug Resistant Organisms: None Reported Past Surgical History: Hysterectomy, Tonsillectomy Additional Past Surgical History / Comment(s): RUPTURED GRAFIAN FOLLICLE, HARITHA CATARACTS with lens implants Past Anesthesia/Blood Transfusion Reactions: No Reported Reaction Additional Past Anesthesia/Blood Transfusion Reaction / Comment(s): HX OF BLOOD TRANSFUSION-NO REACTION Past Psychological History: Anxiety Smoking Status: Current every day smoker, Light tobacco smoker Past Alcohol Use History: Occasional Past Drug Use History: None Reported - Past Family History Father Family Medical History: Cancer Additional Family Medical History / Comment(s): PANCREATIC CANCER Brother(s) Family Medical History: Cancer, Thyroid Disorder Additional Family Medical History / Comment(s): STOMACH CANCER Medications and Allergies Home Medications Medication Instructions Recorded Confirmed Type Levothyroxine Sodium [Synthroid] 88 mcg PO DAILY 03/10/23 12/10/23 History Azithromycin [Zithromax Z Pack] See Taper PO DIRECTED 12/10/23 12/10/23 History LORazepam [Ativan] 2 mg PO BID 12/10/23 12/10/23 History methylPREDNISolone [Medrol Dose See Taper PO DIRECTED 12/10/23 12/10/23 His tory Pack] Allergies Allergy/AdvReac Type Severity Reaction Status Date / Time No Known Allergies Allergy Verified 12/10/23 09:33 Physical Exam Vitals: Vital Signs Temp Pulse Pulse Resp BP Pulse Ox 12/14/23 08:08 88 12/14/23 07:56 84 12/14/23 07:15 98.3 F 100 17 112/70 98 12/14/23 04:38 105 H 12/14/23 04:27 104 H 12/14/23 02:00 98.2 F 103 H 16 108/67 97 12/14/23 00:32 110 H 12/14/23 00:18 108 H 12/13/23 21:25 108 H 12/13/23 21:14 112 H 12/13/23 20:00 98.3 F 103 H 16 110/70 97 12/13/23 16:50 110 H 12/13/23 16:40 108 H 12/13/23 12:39 98.0 F 109 H 17 103/65 97 12/13/23 11:46 112 H 12/13/23 11:35 108 H Intake and Output 12/13/23 12/14/23 12/14/23 22:59 06:59 14:59 Intake Total 1620 Balance 1620 Intake: Oral 1620 Other: Voiding Method Toilet Toilet # Voids 3 Results 12/10/23 08:23 12/12/23 06:47 Cardiac Enzymes 12/13/23 12/13/23 12/13/23 Range/Units 17:58 20:32 23:55 Troponin I <0.012 <0.012 <0.012 (0.000-0.034) ng/mL Current Medications Generic Name Dose Route Start Last Admin Trade Name Freq PRN Reason Stop Dose Admin Acetaminophen 650 mg 12/10/23 09:18 12/13/23 20:35 Acetaminophen Tab 325 Mg Tab PO 650 mg Q6HR PRN Administration Mild Pain or Fever > 100.5 Hydrocodone Bitart/Acetaminophen 1 each 12/12/23 12:42 12/14/23 00:20 Hydrocodone/Apap 5-325mg 1 Each Tab PO 1 each Q6HR PRN Administration Pain Albuterol/Ipratropium 3 ml 12/10/23 12:00 12/14/23 07:56 Ipratropium-Albuterol 3 Ml Neb INHALATION 3 ml RT-Q4H KAMILLE Administration Albuterol/Ipratropium 3 ml 12/10/23 09:19 Ipratropium-Albuterol 3 Ml Neb INHALATION RT-Q2H PRN Shortness Of Breath Or Wheezing Dextrose/Water 25 ml 12/10/23 15:27 Dextrose 50% Syringe 50 Ml IVP PER PROTOCOL PRN Hypoglycemia Protocol Dextrose/Water 50 ml 12/10/23 15:27 Dextrose 50% Syringe 50 Ml IVP PER PROTOCOL PRN Hypoglycemia Protocol Docusate Sodium 100 mg 12/13/23 21:00 12/14/23 08:12 Docusate 100 Mg Cap PO 100 mg BID KAMILLE Administration Famotidine 20 mg 12/10/23 21:00 12/14/23 08:12 Famotidine 20 Mg/2 Ml Vial IV 20 mg Q12HR KAMILLE Administration Heparin Sodium (Porcine) 5,000 unit 12/10/23 21:00 12/14/23 08:12 Heparin Sodium,Porcine 5,000 Unit/Ml 1 Ml Vial SQ 5,000 unit Q12HR KAMILLE Administration Hydromorphone HCl 0.5 mg 12/12/23 12:42 Hydromorphone 0.5 Mg/0.5 Ml Syringe IVP Q6HR PRN Pain Insulin Aspart 0 unit 12/10/23 17:30 12/14/23 07:35 Insulin Aspart (Novolog) 100 Unit/Ml Vial SQ Not Given ACHS KAMILLE Protocol Levothyroxine Sodium 88 mcg 12/12/23 13:30 12/14/23 05:35 Levothyroxine 88 Mcg Tab PO 88 mcg DAILY@0630 KAMILLE Administration Lorazepam 1 mg 12/11/23 11:00 12/14/23 08:12 Lorazepam 1 Mg Tab PO 1 mg BID KAMILLE Administration Methylprednisolone Sodium Succinate 40 mg 12/10/23 12:00 12/14/23 05:36 Methylprednisolone Sod Succi 40 Mg/Ml 1 Ml Vial IV 40 mg Q6HR KAMILLE Administration Naloxone HCl 0.2 mg 12/10/23 09:18 Naloxone 0.4 Mg/Ml 1 Ml Vial IV Q2M PRN Opioid Reversal Nicotine 1 patch 12/10/23 15:45 12/14/23 08:12 Nicotine 21mg/24hr Patch TRANSDERM 1 patch DAILY KAMILLE Administration Nitroglycerin 0.4 mg 12/13/23 18:01 Nitroglycerin Sl Tabs 0.4 Mg Tab SUBLINGUAL Q5M PRN Chest Pain Ondansetron HCl 4 mg 12/10/23 09:18 Ondansetron 4 Mg/2 Ml Vial IVP Q8HR PRN Nausea And Vomiting Intake and Output 12/13/23 12/14/23 12/14/23 22:59 06:59 14:59 Intake Total 1620 Balance 1620 Intake: Oral 1620 Other: Voiding Method Toilet Toilet # Voids 3 12/10/23 08:23 12/12/23 06:47
[2023-12-14 12:04] LABS: Glucose,Whole Blood 157 mg/dL (70-110)
--- NOTE | 2023-12-14 12:37 | P.PN ---
Subjective Progress Note Date: 12/14/23 This is a pleasant 68 years old female with past medical history of left breast cancer, she was on chemotherapy on stopped and last October, she follows up with Dr. Gomez and she had a skin biopsy from her left mastectomy site which came back positive and she supposed to follow-up with Dr. Dee tomorrow. Presents today because of marked cough for the last 4-5 days which is nonproductive associated with dyspnea and some mild chest pain from her procedure but no other chest pain Patient was found to have left pleural effusion and underwent thoracocentesis and 1.2 L taken out She smokes about half pack per day and she was counseled to quit and she agrees to the nicotine patch. No alcohol or illicit drugs. She denies any change in urine or bowel habits. She works with no difficulty She is hemodynamically stable, currently she is on 2 L oxygen. At home she was not on oxygen She is mildly tachycardic with heart rate around 120 Sodium 129. Labs including CBC LFT BMP troponin, Liver enzymes were unremarkable ProBNP 159 Influenza A and type B, RSV, SARS (coronavirus) are and detected Chest x-ray showed left pleural effusion and consolidation , Repeat chest x-ray after thoracocentesis showing improvement EKG showing sinus tachycardia at [address]-T changes 12/11/2023 pt is awake and alert at baseline , getting breathing treatment which she thiniks helping her and improving , at bed side and he agrees she is improving pt states her dyspnea is improving no chest pain still some coughing pending pleural fluid cytolgoy on iv solumedrol 40 mg q6hr 12/12/2023 Awake and alert at baseline Mildly tachypneic Status post thoracocentesis and did cytology result Last night could not sleep because of pain at the mastectomy site radiating to the left arm most likely related to her cancer diagnosis *Pain medication today with IV Dilaudid on Stanley 12/13/2023 Patient breathing is improving She is status post left thoracocentesis. Cytology is pending Oncology team on the case for left breast cancer status post mastectomy. Pain at the cancer site is better controlled with narcotics she couldn't sleep last night She looks more relaxed today Pain management call or set up with the patient and she verbalized understanding and acceptance. Family/ at bedside 12/14. Patient seen and examined. States chest pain has improved. Denies any shortness of breath at rest REVIEW OF SYSTEMS: CONSTITUTIONAL: No fever, no malaise,. CARDIOVASCULAR: no palpitations, no syncope. PULMONARY: no cough, GASTROINTESTINAL: No diarrhea, no nausea, no vomiting, no abdominal pain. NEUROLOGICAL: No headaches, no weakness, PHYSICAL EXAMINATION: GENERAL: The patient is alert and oriented x3, not in any acute distress. Well developed, well nourished. HEENT: Pupils are round and equally reacting to light. EOMI. No scleral icterus. No conjunctival pallor. Normocephalic, atraumatic. No pharyngeal erythema. No thyromegaly. CARDIOVASCULAR: S1 and S2 present. No murmurs, rubs, or gallops. PULMONARY: Chest is clear to auscultation, no wheezing or crackles. ABDOMEN: Soft, nontender, nondistended, normoactive bowel sounds. No palpable organomegaly. MUSCULOSKELETAL: No joint swelling or deformity. EXTREMITIES: No cyanosis, clubbing, or pedal edema. NEUROLOGICAL: Gross neurological examination did not reveal any focal deficits. SKIN: No rashes. Assessment and plan Acute hypoxic respiratory failure resolved Left pleural effusion, rule out malignant pleural effusion status post thoracocentesis on 12/10 with 1.2 L taken out Left breast cancer status post mastectomy, finished chemotherapy last October with possible cutaneous metastasis is COPD exacerbation Monitor vital signs Monitor CBC Monitor CMP Continue with IV Solu-Medrol Continue pain management Status post thoracocentesis, cytology pending Pulmonary team following Oncology consulted Cardiology consulted Labs and medication were reviewed.. Continue same treatment. Continue with symptomatic treatment. Resume home medication. Monitor labs and vitals. DVT and GI prophylaxis. Further recommendations as per clinical course of the patient Dictation was produced using [employer] dictation software. please excuse any grammatical, word or spelling errors. Objective - Vital Signs Vital signs: Vital Signs Temp 98.3 F 12/14/23 07:15 Pulse 88 12/14/23 08:08 Resp 17 12/14/23 07:15 BP 112/70 12/14/23 07:15 Pulse Ox 98 12/14/23 07:15 FiO2 50 12/10/23 09:32 Intake & Output 12/13/23 12/14/23 12/14/23 18:59 06:59 18:59 Intake Total 1620 Balance 1620 Intake: Oral 1620 Other: Voiding Method Toilet Toilet # Voids 3 - Labs CBC & Chem 7: 12/10/23 08:23 12/12/23 06:47 Labs: Abnormal Lab Results - Last 24 Hours (Table) 12/13/23 12/13/23 12/13/23 Range/Units 11:57 17:51 20:08 POC Glucose (mg/dL) 132 H 126 H 160 H (70-110) mg/dL Microbiology - Last 24 Hours (Table) 12/10/23 11:08 Gram Stain - Final Pleural Fluid Body Fluid Culture - Final
--- NOTE | 2023-12-14 13:32 | P.PN ---
Subjective Progress Note Date: 12/14/23 This is a very pleasant 68-year-old female patient was coming into the emergency department because of shortness of breath. The patient was diagnosed having more differentiated ductal carcinoma and the patient underwent a left mastectomy on , the patient was found to have 10 out of 14 lymph nodes positive for metastatic ductal carcinoma. Based on that, the patient was given systemic chemotherapy and subsequent oral hormonal treatment. Most recent PET scan that was done on this patient on 12/04/2023 showed foci of uptake in the mediastinum and the left hilum compatible with metastases. New focus of activity in the liver suspicious for metastases. New focus of osseous metastases involving the thoracic vertebra in the right ilium and the left anterior rib. There is also a large left-sided pleural effusion. The patient is a chronic smoker. She was briefly placed on a BiPAP in the emergency depression of 08/06 and currently she is off the BiPAP on 2 L of oxygen by nasal cannula. She has diminished breath sounds in the left lung base. The rest of the blood work shows a WBC count of 8 hemoglobin 13.7 and a platelet count of 221. BUN is at 9 with a creatinine of 0.3 and his sodium level is at 129. The viral panel has been negative. On today's evaluation of 12/11/2023, I am seeing the patient for a follow-up. The patient is doing much better. The patient underwent a thoracentesis yesterday with a total of 1.2 L of fluid was aspirated from the left lung. There was no complication. The fluid is an exudate based on the protein and LDH criteria. Cytology still pending for now. Meanwhile, the patient remains on bronchodilators and the patient also on IV Solu-Medrol 40 mg every 6 hours regarding history of exacerbation. She is already feeling better. She has no specific complaints for now. No chest pain. Cough is improved. On 12/12/2023, the patient is complaining of some ongoing shortness of breath and this is related to her underlying COPD and left-sided pleural effusion. Note that the left-sided pleural effusion is an exudate and I performed a thoracente sis and I am waiting the final pleural fluid cytology. Meanwhile, the patient remains on DuoNeb updrafts and the patient is also on IV Solu-Medrol 40 mg every 6 hours. No altered mentation. No interval worsening in oxygenation and the patient remains on 3 L O2 nasal cannula with a pulse ox of 98%. Sodium level is at 131, potassium is at 4.5 and BUN is at 13 greater than 0.4. Glucose 115 12/13/2023, the patient is being seen for a follow-up. No new complaints. Still having shortness of breath which is essentially due to her COPD. Left-sided pleural effusion was drained and the fluid cytology is still pending for now. The patient has no new complaints otherwise. The patient remains on DuoNeb and IV Solu-Medrol. Pleural fluid cytology still pending for now. No new labs are available from today patient is resting comfortably in bed and the patient is currently on room air oxygen with a pulse ox of 97%. No chest pain. No pleurisy or hemoptysis. The patient is seen today December 14, 2023 in follow-up on the regular medical floor. She is currently sitting up in bed. Awake and alert in no acute distress. She is maintaining O2 saturations in the 90s on 3 L/min per nasal can nula. Status post left-sided thoracentesis. Cultures were negative. Fluid is exudate with the protein of greater than 3.6 and LDH of 663. Cytology is pending. Blood sugar 100. She is currently on DuoNeb and elations, Solu- Medrol. Heparin for DVT prophylaxis. NicoDerm patch in place. Objective - Vital Signs Vital signs: Vital Signs Temp 97.6 F 12/14/23 12:01 Pulse 118 H 12/14/23 12:01 Resp 17 12/14/23 12:01 BP 112/72 12/14/23 12:01 Pulse Ox 92 L 12/14/23 12:01 FiO2 50 12/10/23 09:32 Intake & Output 12/13/23 12/14/23 12/14/23 18:59 06:59 18:59 Intake Total 1620 Balance 1620 Intake: Oral 1620 Other: Voiding Method Toilet Toilet Toilet # Voids 3 - Exam GENERAL EXAM: Alert, thin, very pleasant 68-year-old female, 3 L nasal cannula, fairly comfortable in no apparent distress. HEAD: Normocephalic. EYES: Normal reaction of pupils, equal size. NOSE: Clear with pink turbinates. THROAT: No erythema or exudates. NECK: No masses, no JVD. CHEST: No chest wall deformity. Right IJ Mediport catheter in place. Status post left mastectomy LUNGS: Equal air entry with crackles in the left base. CVS: S1 and S2 normal with no audible murmur, regular rhythm. ABDOMEN: No hepatosplenomegaly, normal bowel sounds, no guarding or rigidity. SPINE: No scoliosis or deformity SKIN: No rashes CENTRAL NERVOUS SYSTEM: No focal deficits, tone is normal in all 4 extremities. EXTREMITIES: There is no peripheral edema. No clubbing, no cyanosis. Peripheral pulses are intact. - Labs CBC & Chem 7: 12/10/23 08:23 12/12/23 06:47 Labs: Abnormal Lab Results - Last 24 Hours (Table) 12/13/23 12/13/23 12/14/23 Range/Units 17:51 20:08 12:02 POC Glucose (mg/dL) 126 H 160 H 157 H (70-110) mg/dL Microbiology - Last 24 Hours (Table) 12/10/23 11:08 Gram Stain - Final Pleural Fluid Body Fluid Culture - Final Assessment and Plan Assessment: Acute shortness of breath, multifactorial. She has COPD and a moderate size to large size left-sided pleural effusion which could be potentially metastatic/malignant in nature. As such, the patient underwent/therapeutic thoracentesis. She was briefly placed on BiPAP and currently on 3 L nasal cannula Acute hypoxic respiratory failure secondary to above currently on 3 L nasal cannula Left-sided pleural effusion status post drainage of 1.2 L of pleural fluid from the left lung. The fluid is an exudate, likely malignant. Awaiting cytology COPD Chronic and ongoing tobacco dependence Metastatic breast cancer post left mastectomy and chemotherapy and hormonal treatment. The most recent PET/CT that was done in 12/04/2023 showed metastatic disease with pulmonary, liver and skeletal involvement. History of meningitis History of an ovarian cyst Plan: The patient was seen and evaluated Labs and medications reviewed Titrate down the FiO2 as tolerated Continue bronchodilators, steroids Cytology of the pleural fluid pending Educated regarding the importance of complete smoking cessation NicoDerm patch in place Heparin for DVT prophylaxis I have personally seen and examined the patient, performed the documentation and the assessment and plan as written. Number of minutes spent on the visit: 10.
[2023-12-14 16:48] LABS: Glucose,Whole Blood 128 mg/dL (70-110)
[2023-12-14 20:24] LABS: Glucose,Whole Blood 163 mg/dL (70-110)
[2023-12-14] MEDS ORDERED: IPRATROPIUM-ALBUTEROL 3 ML NEB INHALATION PRN (20:55)
[2023-12-15 07:23] LABS: Glucose,Whole Blood 95 mg/dL (70-110)
[2023-12-15] MEDS: IPRATROPIUM-ALBUTEROL 3 ML NEB INHALATION SCH (07:58)
--- NOTE | 2023-12-15 11:00 | CA ---
Transthoracic Echo Report Name: April Canchola Age: 68 Gender: F : 1955 Exam Date: 12/14/2023 15:19 Exam Location: [facility] Ht (in): 64 Wt (lb): 93 Ordering Physician: Cornelia Basurto Attending/Referring Phys: [id number], Sb Clinical Data Abstractor Deja Grace RDCS Procedure CPT: Indications: LV function Cardiac Hx: Technical Quality: Fair Contrast 1: Total Dose (mL): Contrast 2: Total Dose (mL): MEASUREMENTS (Male / Female) Normal Values 2D ECHO LV Diastolic Diameter PLAX 4.1 cm 4.2 - 5.9 / 3.9 - 5.3 cm LV Systolic Diameter PLAX 3.3 cm IVS Diastolic Thickness 1.0 cm 0.6 - 1.0 / 0.6 - 0.9 cm LVPW Diastolic Thickness 0.6 cm 0.6 - 1.0 / 0.6 - 0.9 cm LV Relative Wall Thickness 0.4 Aortic Root Diameter 3.1 cm LA Systolic Diameter LX 2.4 cm 3.0 - 4.0 / 2.7 - 3.8 cm DOPPLER AV Peak Velocity 112.4 cm/s AV Peak Gradient 5.1 mmHg AV Mean Velocity 67.2 cm/s AV Mean Gradient 2.2 mmHg AV Velocity Time Integral 26.0 cm LVOT Peak Velocity 80.8 cm/s LVOT Peak Gradient 2.6 mmHg LVOT Velocity Time Integral 14.0 cm Mitral E Point Velocity 123.6 cm/s Mitral A Point Velocity 119.3 cm/s Mitral E to A Ratio 1.0 MV Deceleration Time 193.9 ms MV E' Velocity 5.6 cm/s Mitral E to MV E' Ratio 21.9 TR Peak Velocity 235.4 cm/s TR Peak Gradient 22.2 mmHg PV Peak Velocity 100.7 cm/s PV Peak Gradient 4.1 mmHg FINDINGS Left Ventricle Mildly increased septal wall thickness. Left ventricular ejection fraction is estimated at 50-55 %. Right Ventricle Right ventricle not well visualized. Right Atrium Right atrium not well visualized. Left Atrium Normal left atrial size. Mitral Valve Mitral valve thickened. Aortic Valve Aortic valve not well visualized. Tricuspid Valve Trace to mild tricuspid regurgitation. Pulmonic Valve Pulmonic valve not well visualized. Pericardium Normal pericardium. Aorta Normal size aortic root and proximal ascending aorta. CONCLUSIONS Technically difficult study Mild increased left ventricular wall thickness Left ventricular ejection fraction 50-55% Trace to mild tricuspid regurgitation Previewed by: Dr. Dao Vicente DO (Electronically Signed) Final Date: 15 December 2023 10:59
[2023-12-15 11:29] LABS: ALT 23 U/L (8-44); AST 15 U/L (13-35); Albumin 3.9 g/dL (3.8-4.9); Albumin/Globulin Ratio 1.77 Ratio (1.60-3.17); Alkaline Phosphatase 95 U/L (41-126); BUN/Creat Ratio 24.67 Ratio (12.00-20.00); Blood Urea Nitrogen 14.8 mg/dL (9.0-27.0); Calcium 9.5 mg/dL (8.7-10.3); Carbon Dioxide 30.4 mmol/L (21.6-31.8); Chloride 94 mmol/L (96-109); Globulin 2.2 g/dL (1.6-3.3); Glucose 82 mg/dL (70-110); Sodium 134 mmol/L (135-145); Total Bilirubin 0.2 mg/dL (0.3-1.2); Total Protein 6.1 g/dL (6.2-8.2)
[2023-12-15 11:46] LABS: Basophils # (A) 0.01 X 10*3/uL (0.00-0.10); Basophils % (A) 0.1 %; Eosinophils # (A) 0.01 X 10*3/uL (0.04-0.35); Eosinophils % (A) 0.1 %; HCT 41.9 % (37.2-46.3); HGB 14.3 g/dL (12.0-15.0); Lymphocytes # (A) 2.09 X 10*3/uL (0.90-5.00); MCH 33.6 pg (27.0-32.0); MCHC 34.1 g/dL (32.0-37.0); MCV 98.4 FL (80.0-97.0); Mean Platelet Volume 9.2 FL (9.5-12.2); Monocytes # (A) 1.02 X 10*3/uL (0.20-1.00); Monocytes % (A) 12.2 %; NRBC Per 100 WBC 0 X 10*3/uL (0.00-0.01); Neutrophils # (A) 5.17 X 10*3/uL (1.80-7.70); Neutrophils % (A) 61.8 %; Platelet Count 229 X 10*3/uL (140-440); RBC 4.26 X 10*6/uL (4.10-5.20); RDW 14.4 % (11.5-14.5); WBC 8.37 X 10*3/uL (4.50-10.00)
--- NOTE | 2023-12-15 11:55 | P.PN ---
Subjective Progress Note Date: 12/15/23 This is a pleasant 68 years old female with past medical history of left breast cancer, she was on chemotherapy on stopped and last October, she follows up with Dr. Gomez and she had a skin biopsy from her left mastectomy site which came back positive and she supposed to follow-up with Dr. Dee tomorrow. Presents today because of marked cough for the last 4-5 days which is nonproductive associated with dyspnea and some mild chest pain from her procedure but no other chest pain Patient was found to have left pleural effusion and underwent thoracocentesis and 1.2 L taken out She smokes about half pack per day and she was counseled to quit and she agrees to the nicotine patch. No alcohol or illicit drugs. She denies any change in urine or bowel habits. She works with no difficulty She is hemodynamically stable, currently she is on 2 L oxygen. At home she was not on oxygen She is mildly tachycardic with heart rate around 120 Sodium 129. Labs including CBC LFT BMP troponin, Liver enzymes were unremarkable ProBNP 159 Influenza A and type B, RSV, SARS (coronavirus) are and detected Chest x-ray showed left pleural effusion and consolidation , Repeat chest x-ray after thoracocentesis showing improvement EKG showing sinus tachycardia at [address]-T changes 12/11/2023 pt is awake and alert at baseline , getting breathing treatment which she thiniks helping her and improving , at bed side and he agrees she is improving pt states her dyspnea is improving no chest pain still some coughing pending pleural fluid cytolgoy on iv solumedrol 40 mg q6hr 12/12/2023 Awake and alert at baseline Mildly tachypneic Status post thoracocentesis and did cytology result Last night could not sleep because of pain at the mastectomy site radiating to the left arm most likely related to her cancer diagnosis *Pain medication today with IV Dilaudid on [place] 12/13/2023 Patient breathing is improving She is status post left thoracocentesis. Cytology is pending Oncology team on the case for left breast cancer status post mastectomy. Pain at the cancer site is better controlled with narcotics she couldn't sleep last night She looks more relaxed today Pain management call or set up with the patient and she verbalized understanding and acceptance. Family/ at bedside 12/14. Patient seen and examined. States chest pain has improved. Denies any shortness of breath at rest 12/15. Patient seen and examined. Lying comfortably in the bed. Denies any chest pain. Vital signs stable REVIEW OF SYSTEMS: CONSTITUTIONAL: No fever, no malaise,. CARDIOVASCULAR: no palpitations, no syncope. PULMONARY: no cough, GASTROINTESTINAL: No diarrhea, no nausea, no vomiting, no abdominal pain. NEUROLOGICAL: No headaches, no weakness, PHYSICAL EXAMINATION: GENERAL: The patient is alert and oriented x3, not in any acute distress. Well developed, well nourished. HEENT: Pupils are round and equally reacting to light. EOMI. No scleral icterus. No conjunctival pallor. Normocephalic, atraumatic. No pharyngeal erythema. No thyromegaly. CARDIOVASCULAR: S1 and S2 present. No murmurs, rubs, or gallops. PULMONARY: Chest is clear to auscultation, no wheezing or crackles. ABDOMEN: Soft, nontender, nondistended, normoactive bowel sounds. No palpable organomegaly. MUSCULOSKELETAL: No joint swelling or deformity. EXTREMITIES: No cyanosis, clubbing, or pedal edema. NEUROLOGICAL: Gross neurological examination did not reveal any focal deficits. SKIN: No rashes. Assessment and plan Acute hypoxic respiratory failure resolved Left pleural effusion, rule out malignant pleural effusion status post thoracocentesis on 12/10 with 1.2 L taken out Left breast cancer status post mastectomy, finished chemotherapy last October with possible cutaneous metastasis is COPD exacerbation Monitor vital signs Monitor CBC Monitor CMP Continue with IV Solu-Medrol Continue pain management Monitor blood sugar levels, can discharge currently Continue Synthroid Continue antibiotics Status post thoracocentesis, cytology pending Pulmonary team following Oncology consulted Cardiology evaluated the patient, 2D echo ordered. Labs and medication were reviewed.. Continue same treatment. Continue with symptomatic treatment. Resume home medication. Monitor labs and vitals. DVT and GI prophylaxis. Further recommendations as per clinical course of the patient Dictation was produced using [employer] dictation software. please excuse any grammatical, word or spelling errors. Objective - Vital Signs Vital signs: Vital Signs Temp 98.5 F 12/15/23 08:00 Pulse 80 12/15/23 08:10 Resp 18 12/15/23 08:00 BP 121/71 12/15/23 08:00 Pulse Ox 96 12/15/23 08:00 FiO2 50 12/10/23 09:32 Intake & Output 12/14/23 12/15/23 12/15/23 18:59 06:59 18:59 Other: Voiding Method Toilet Toilet # Voids 3 2 - Labs CBC & Chem 7: 12/15/23 06:27 12/15/23 06:27 Labs: Abnormal Lab Results - Last 24 Hours (Table) 12/14/23 12/14/23 12/14/23 Range/Units 12:02 16:47 20:23 POC Glucose (mg/dL) 157 H 128 H 163 H (70-110) mg/dL Microbiology - Last 24 Hours (Table) 12/10/23 11:08 Gram Stain - Final Pleural Fluid Body Fluid Culture - Final
[2023-12-15 12:08] LABS: Glucose,Whole Blood 125 mg/dL (70-110)
--- NOTE | 2023-12-15 13:12 | P.PN ---
Subjective Progress Note Date: 12/15/23 This is a very pleasant 68-year-old female patient was coming into the emergency department because of shortness of breath. The patient was diagnosed having more differentiated ductal carcinoma and the patient underwent a left mastectomy on , the patient was found to have 10 out of 14 lymph nodes positive for metastatic ductal carcinoma. Based on that, the patient was given systemic chemotherapy and subsequent oral hormonal treatment. Most recent PET scan that was done on this patient on 12/04/2023 showed foci of uptake in the mediastinum and the left hilum compatible with metastases. New focus of activity in the liver suspicious for metastases. New focus of osseous metastases involving the thoracic vertebra in the right ilium and the left anterior rib. There is also a large left-sided pleural effusion. The patient is a chronic smoker. She was briefly placed on a BiPAP in the emergency depression of 08/06 and currently she is off the BiPAP on 2 L of oxygen by nasal cannula. She has diminished breath sounds in the left lung base. The rest of the blood work shows a WBC count of 8 hemoglobin 13.7 and a platelet count of 221. BUN is at 9 with a creatinine of 0.3 and his sodium level is at 129. The viral panel has been negative. On today's evaluation of 12/11/2023, I am seeing the patient for a follow-up. The patient is doing much better. The patient underwent a thoracentesis yesterday with a total of 1.2 L of fluid was aspirated from the left lung. There was no complication. The fluid is an exudate based on the protein and LDH criteria. Cytology still pending for now. Meanwhile, the patient remains on bronchodilators and the patient also on IV Solu-Medrol 40 mg every 6 hours regarding history of exacerbation. She is already feeling better. She has no specific complaints for now. No chest pain. Cough is improved. On 12/12/2023, the patient is complaining of some ongoing shortness of breath and this is related to her underlying COPD and left-sided pleural effusion. Note that the left-sided pleural effusion is an exudate and I performed a thoracente sis and I am waiting the final pleural fluid cytology. Meanwhile, the patient remains on DuoNeb updrafts and the patient is also on IV Solu-Medrol 40 mg every 6 hours. No altered mentation. No interval worsening in oxygenation and the patient remains on 3 L O2 nasal cannula with a pulse ox of 98%. Sodium level is at 131, potassium is at 4.5 and BUN is at 13 greater than 0.4. Glucose 115 12/13/2023, the patient is being seen for a follow-up. No new complaints. Still having shortness of breath which is essentially due to her COPD. Left-sided pleural effusion was drained and the fluid cytology is still pending for now. The patient has no new complaints otherwise. The patient remains on DuoNeb and IV Solu-Medrol. Pleural fluid cytology still pending for now. No new labs are available from today patient is resting comfortably in bed and the patient is currently on room air oxygen with a pulse ox of 97%. No chest pain. No pleurisy or hemoptysis. The patient is seen today December 14, 2023 in follow-up on the regular medical floor. She is currently sitting up in bed. Awake and alert in no acute distress. She is maintaining O2 saturations in the 90s on 3 L/min per nasal can nula. Status post left-sided thoracentesis. Cultures were negative. Fluid is exudate with the protein of greater than 3.6 and LDH of 663. Cytology is pending. Blood sugar 100. She is currently on DuoNeb and elations, Solu- Medrol. Heparin for DVT prophylaxis. NicoDerm patch in place. The patient is seen today December 15, 2023 in follow-up on the regular medical floor. She is currently awake and alert in no acute distress. Sitting up in bed. Maintaining O2 saturations in the 90s on 2 L/min per nasal cannula. She has been afebrile. Hemodynamically stable. Pleural fluid cytology is positive for metastatic ductal breast carcinoma. Pleural fluid cultures revealed no growth. White count 8.3. Hemoglobin 14.3. Platelets 229. Sodium 134. Potassium 5.0. Bicarb 30. BUN 15. Creatinine 0.6. Glucose 82. She is continued on DuoNeb ventilations, Solu-Medrol. NicoDerm patch in place. Heparin for DVT prophylaxis. Pain control with Dilaudid and [place]. Objective - Vital Signs Vital signs: Vital Signs Temp 97.7 F 12/15/23 11:30 Pulse 92 12/15/23 12:01 Resp 16 12/15/23 11:30 BP 121/71 12/15/23 11:30 Pulse Ox 91 L 12/15/23 11:30 FiO2 50 12/10/23 09:32 Intake & Output 12/14/23 12/15/23 12/15/23 18:59 06:59 18:59 Weight 42.184 kg Other: Voiding Method Toilet Toilet # Voids 3 2 - Exam GENERAL EXAM: Alert, thin, pleasant 68-year-old female, 3 L nasal cannula, comfortable in no apparent distress. HEAD: Normocephalic. EYES: Normal reaction of pupils, equal size. NOSE: Clear with pink turbinates. THROAT: No erythema or exudates. NECK: No masses, no JVD. CHEST: No chest wall deformity. Right IJ Mediport catheter in place. Status post left mastectomy LUNGS: Equal air entry with crackles in the left base. CVS: S1 and S2 normal with no audible murmur, regular rhythm. ABDOMEN: No hepatosplenomegaly, normal bowel sounds, no guarding or rigidity. SPINE: No scoliosis or deformity SKIN: No rashes CENTRAL NERVOUS SYSTEM: No focal deficits, tone is normal in all 4 extremities. EXTREMITIES: There is no peripheral edema. No clubbing, no cyanosis. Peripheral pulses are intact. - Labs CBC & Chem 7: 12/15/23 06:27 12/15/23 06:27 Labs: Abnormal Lab Results - Last 24 Hours (Table) 12/14/23 12/14/23 12/15/23 Range/Units 16:47 20:23 06:27 MCV 98.4 H (80.0-97.0) FL MCH 33.6 H (27.0-32.0) pg MPV 9.2 L (9.5-12.2) FL Immature Gran # 0.07 H (0.00-0.04) X 10*3/uL Monocytes # 1.02 H (0.20-1.00) X 10*3/uL Eosinophils # 0.01 L (0.04-0.35) X 10*3/uL Sodium (135-145) mmol/L Chloride (96-109) mmol/L BUN/Creatinine Ratio (12.00-20.00) Ratio POC Glucose (mg/dL) 128 H 163 H (70-110) mg/dL Total Bilirubin (0.3-1.2) mg/dL Total Protein (6.2-8.2) g/dL 12/15/23 12/15/23 Range/Units 06:27 12:04 MCV (80.0-97.0) FL MCH (27.0-32.0) pg MPV (9.5-12.2) FL Immature Gran # (0.00-0.04) X 10*3/uL Monocytes # (0.20-1.00) X 10*3/uL Eosinophils # (0.04-0.35) X 10*3/uL Sodium 134 L (135-145) mmol/L Chloride 94 L (96-109) mmol/L BUN/Creatinine Ratio 24.67 H (12.00-20.00) Ratio POC Glucose (mg/dL) 125 H (70-110) mg/dL Total Bilirubin 0.2 L (0.3-1.2) mg/dL Total Protein 6.1 L (6.2-8.2) g/dL Assessment and Plan Assessment: Acute shortness of breath, multifactorial. She has COPD and a moderate size to large size left-sided pleural effusion which could be potentially metastatic/malignant in nature. As such, the patient underwent therapeutic thoracentesis. She was briefly placed on BiPAP and currently on 2 L nasal cannula Acute hypoxic respiratory failure secondary to above currently on 2 L nasal cannula Left-sided pleural effusion status post drainage of 1.2 L of pleural fluid from the left lung. The fluid is positive for metastatic ductal breast carcinoma COPD Chronic and ongoing tobacco dependence Metastatic breast cancer post left mastectomy and chemotherapy and hormonal treatment. The most recent PET/CT that was done in 12/04/2023 showed metastatic disease with pulmonary, liver and skeletal involvement History of meningitis History of an ovarian cyst Plan: The patient was seen and evaluated Labs and medications reviewed Titrate down the FiO2 as tolerated Evaluate for possible home oxygen Continue bronchodilators, steroids Cytology of the pleural fluid shows metastatic disease Educated regarding the importance of smoking cessation NicoDerm patch in place Cleared for discharge from the pulmonary standpoint Follow-up in our office in 1 week Follow-up closely with oncology I have personally seen and examined the patient, performed the documentation and the assessment and plan as written. Number of minutes spent on the visit: 10.
--- NOTE | 2023-12-15 16:37 | P.PN ---
Subjective Progress Note Date: 12/15/23 Principal diagnosis: TNBC, pleural effusion Pt reports that her breathing is stable, much better after thoracentesis. No fevers. She did have and episode of chest pain, Cardiology is working her up. No other c/o at this time. Objective - Vital Signs Vital signs: Vital Signs Temp 97.7 F 12/15/23 11:30 Pulse 92 12/15/23 12:01 Resp 16 12/15/23 11:30 BP 121/71 12/15/23 11:30 Pulse Ox 91 L 12/15/23 11:30 FiO2 50 12/10/23 09:32 Intake & Output 12/14/23 12/15/23 12/15/23 18:59 06:59 18:59 Weight 42.184 kg Other: Voiding Method Toilet Toilet # Voids 3 2 - Constitutional General appearance: Present: cooperative, no acute distress, thin - EENT Eyes: Present: anicteric sclerae, EOMI ENT: Present: hearing grossly normal - Respiratory Respiratory: right: wheezing (middle), left: diminished (base) - Cardiovascular Rhythm: regular Heart sounds: normal: S1, S2 Abnormal Heart Sounds: Absent: systolic murmur, diastolic murmur, rub, S3 Gallop, S4 Gallop, click, other - Peripheral edema leg Peripheral Edema: bilateral: None - Gastrointestinal General gastrointestinal: Present: normal bowel sounds, soft. Absent: absent [place] sounds, decreased bowel sounds, distended, hepatomegaly, hyperactive bowel sounds, organomegaly, rigid, scaphoid, splenomegaly, tenderness, umbilical hernia, ventral hernia - Integumentary Integumentary: Present: normal - Neurologic Neurologic: Present: CNII-XII intact - Musculoskeletal Musculoskeletal: Present: strength equal bilaterally - Psychiatric Psychiatric: Present: A&O x's 3, appropriate affect, intact judgment & insight - Labs CBC & Chem 7: 12/15/23 06:27 12/15/23 06:27 Labs: Abnormal Lab Results - Last 24 Hours (Table) 12/14/23 12/14/23 12/15/23 Range/Units 16:47 20:23 06:27 MCV 98.4 H (80.0-97.0) FL MCH 33.6 H (27.0-32.0) pg MPV 9.2 L (9.5-12.2) FL Immature Gran # 0.07 H (0.00-0.04) X 10*3/uL Monocytes # 1.02 H (0.20-1.00) X 10*3/uL Eosinophils # 0.01 L (0.04-0.35) X 10*3/uL Sodium (135-145) mmol/L Chloride (96-109) mmol/L BUN/Creatinine Ratio (12.00-20.00) Ratio POC Glucose (mg/dL) 128 H 163 H (70-110) mg/dL Total Bilirubin (0.3-1.2) mg/dL Total Protein (6.2-8.2) g/dL 12/15/23 12/15/23 Range/Units 06:27 12:04 MCV (80.0-97.0) FL MCH (27.0-32.0) pg MPV (9.5-12.2) FL Immature Gran # (0.00-0.04) X 10*3/uL Monocytes # (0.20-1.00) X 10*3/uL Eosinophils # (0.04-0.35) X 10*3/uL Sodium 134 L (135-145) mmol/L Chloride 94 L (96-109) mmol/L BUN/Creatinine Ratio 24.67 H (12.00-20.00) Ratio POC Glucose (mg/dL) 125 H (70-110) mg/dL Total Bilirubin 0.2 L (0.3-1.2) mg/dL Total Protein 6.1 L (6.2-8.2) g/dL Assessment and Plan (1) Pleural effusion Current Visit: Yes Status: Acute Priority: High Code(s): J90 - PLEURAL EFFUSION, NOT ELSEWHERE CLASSIFIED SNOMED Code(s): 64699068 (2) Triple negative breast cancer Current Visit: Yes Status: Acute Priority: High Code(s): C50.919 - MALIGNANT NEOPLASM OF UNSP SITE OF UNSPECIFIED FEMALE BREAST SNOMED Code(s): 071905018 Plan: Pleural effusion: -Shortness of breath significantly improved status post 1200 cc thoracentesis on the left. -No recurrent symptoms as of yet. -Cytology is pending. Concern for malignant effusion. Pt is aware of this concern Metastatic, triple negative breast cancer -Most recently been on treatment with xeloda and keytruda -Unfortunately, left chest wall biopsy on 11/18/23 revealed invasive mammary ductal carcinoma. PET/CT on 12/03/2023 revealed disease progression with uptake within mediastinal and hilar lymph nodes, uptake within the liver, new osseous metastases including thoracic vertebral bodies and right ilium and left anterior rib. Persistent intense uptake in the distal sigmoid colon. Currently pending pleural fluid cytology. -Will request NGS, PDL-1 on cytology for targetable treatments. -Clinic f/u is planned to discuss what treatment options will be available to her once we have NGS testing results. Patient did report chest pain. This has been worked up, Cardiology is consulted. Patient does report there is discomfort in the chest still persistent at this time. She has been receiving [place] and states that that is adequate for her pain control. I did verify with patient, she has a prescription for the same at home. Patient verbalized understanding the plan-pending NGS results. From an Oncology standpoint patient can be discharged to home once she is cleared by Attending and other consulting Physicians.
[2023-12-15 17:24] LABS: Glucose,Whole Blood 185 mg/dL (70-110)
[2023-12-15 19:54] LABS: Glucose,Whole Blood 185 mg/dL (70-110)
[2023-12-16 07:04] LABS: Glucose,Whole Blood 114 mg/dL (70-110)
[2023-12-16 08:20] LABS: HCT 40.1 % (37.2-46.3); HGB 13.5 g/dL (12.0-15.0); MCH 33.4 pg (27.0-32.0); MCHC 33.7 g/dL (32.0-37.0); MCV 99.3 FL (80.0-97.0); Mean Platelet Volume 9.6 FL (9.5-12.2); NRBC Per 100 WBC 0 X 10*3/uL (0.00-0.01); Platelet Count 212 X 10*3/uL (140-440); RBC 4.04 X 10*6/uL (4.10-5.20); RDW 14.2 % (11.5-14.5); WBC 7.74 X 10*3/uL (4.50-10.00)
--- NOTE | 2023-12-16 08:21 | CDI ---
Documentation Clarification Form Date: 12/16/2023 07:52:43 AM From: Chasity Bridges RN CCDS Phone: [phone] Admit Date: 12/10/2023 09:28:00 AM Patient Name: April Canchola Visit Number: [id number] Discharge Date: ATTENTION: The Clinical Documentation Specialists (CDI) and [facility] Coding Staff appreciate your assistance in clarifying documentation. Please respond to the clarification below the line at the bottom and electronically sign. The CDI & [facility] Coding staff will review the response and follow-up if needed. Please note: Queries are made part of the Legal Health Record. If you have any questions, please contact the author of this message via ITS. Dr. Zaheer Montemayor The Registered Dietitian assessment on 12/15 indicates this patient meets criteria for Severe Malnutrition. Based on this information and the findings below, is there an additional diagnosis that is clinically appropriate for this patient? History/Risk Factors: 68 year old female presents to the ED with shortness of breath. Medical History: Left breast cancer with metastasis and COPD. 12/10, H&P. Clinical Indicators: RD Consult Assessment, 12/15: Current BMI:16.0 Wgt 50kg Hgt 5ft 4inch Nutrition Intake 12/11 percent consumed 0 -25% 12/15 75-100% Physical findings: Severe muscle / fat loss Estimated Nutritional Needs: [employer] needs 1760 1970, KCAL 30-35kcal/kg r/t CA + 500cal weight gain. Estimated protein range 1.5g/kg, estimated protein needs 65grams/day. Treatment: 12/10 High calorie/Protein diet, Diet Education, General/healthful diet. DC on high calorie protein diet. Supplements: 12/10 Ensure enlive TID PPN/TPN: Is there an additional diagnosis that is clinically appropriate for this patient? [ x ] Severe Protein-Calorie Malnutrition [ ] Other condition, please specify [ ] Unable to Determine (Template Last Revised: May 2023) MTDD
[2023-12-16 08:51] LABS: ALT 22 U/L (8-44); AST 14 U/L (13-35); Albumin 3.6 g/dL (3.8-4.9); Alkaline Phosphatase 87 U/L (41-126); BUN/Creat Ratio 34.17 Ratio (12.00-20.00); Blood Urea Nitrogen 20.5 mg/dL (9.0-27.0); Carbon Dioxide 27.9 mmol/L (21.6-31.8); Chloride 96 mmol/L (96-109); Glucose 112 mg/dL (70-110); Potassium 4.9 mmol/L (3.5-5.5); Sodium 132 mmol/L (135-145); Total Bilirubin 0.2 mg/dL (0.3-1.2); Total Protein 5.6 g/dL (6.2-8.2)
--- NOTE | 2023-12-16 11:17 | P.PN ---
Subjective Progress Note Date: 12/16/23 This is a very pleasant 68-year-old female patient was coming into the emergency department because of shortness of breath. The patient was diagnosed having more differentiated ductal carcinoma and the patient underwent a left mastectomy on , the patient was found to have 10 out of 14 lymph nodes positive for metastatic ductal carcinoma. Based on that, the patient was given systemic chemotherapy and subsequent oral hormonal treatment. Most recent PET scan that was done on this patient on 12/04/2023 showed foci of uptake in the mediastinum and the left hilum compatible with metastases. New focus of activity in the liver suspicious for metastases. New focus of osseous metastases involving the thoracic vertebra in the right ilium and the left anterior rib. There is also a large left-sided pleural effusion. The patient is a chronic smoker. She was briefly placed on a BiPAP in the emergency depression of 08/06 and currently she is off the BiPAP on 2 L of oxygen by nasal cannula. She has diminished breath sounds in the left lung base. The rest of the blood work shows a WBC count of 8 hemoglobin 13.7 and a platelet count of 221. BUN is at 9 with a creatinine of 0.3 and his sodium level is at 129. The viral panel has been negative. On today's evaluation of 12/11/2023, I am seeing the patient for a follow-up. The patient is doing much better. The patient underwent a thoracentesis yesterday with a total of 1.2 L of fluid was aspirated from the left lung. There was no complication. The fluid is an exudate based on the protein and LDH criteria. Cytology still pending for now. Meanwhile, the patient remains on bronchodilators and the patient also on IV Solu-Medrol 40 mg every 6 hours regarding history of exacerbation. She is already feeling better. She has no specific complaints for now. No chest pain. Cough is improved. On 12/12/2023, the patient is complaining of some ongoing shortness of breath and this is related to her underlying COPD and left-sided pleural effusion. Note that the left-sided pleural effusion is an exudate and I performed a thoracente sis and I am waiting the final pleural fluid cytology. Meanwhile, the patient remains on DuoNeb updrafts and the patient is also on IV Solu-Medrol 40 mg every 6 hours. No altered mentation. No interval worsening in oxygenation and the patient remains on 3 L O2 nasal cannula with a pulse ox of 98%. Sodium level is at 131, potassium is at 4.5 and BUN is at 13 greater than 0.4. Glucose 115 12/13/2023, the patient is being seen for a follow-up. No new complaints. Still having shortness of breath which is essentially due to her COPD. Left-sided pleural effusion was drained and the fluid cytology is still pending for now. The patient has no new complaints otherwise. The patient remains on DuoNeb and IV Solu-Medrol. Pleural fluid cytology still pending for now. No new labs are available from today patient is resting comfortably in bed and the patient is currently on room air oxygen with a pulse ox of 97%. No chest pain. No pleurisy or hemoptysis. The patient is seen today December 14, 2023 in follow-up on the regular medical floor. She is currently sitting up in bed. Awake and alert in no acute distress. She is maintaining O2 saturations in the 90s on 3 L/min per nasal can nula. Status post left-sided thoracentesis. Cultures were negative. Fluid is exudate with the protein of greater than 3.6 and LDH of 663. Cytology is pending. Blood sugar 100. She is currently on DuoNeb and elations, Solu- Medrol. Heparin for DVT prophylaxis. NicoDerm patch in place. The patient is seen today December 15, 2023 in follow-up on the regular medical floor. She is currently awake and alert in no acute distress. Sitting up in bed. Maintaining O2 saturations in the 90s on 2 L/min per nasal cannula. She has been afebrile. Hemodynamically stable. Pleural fluid cytology is positive for metastatic ductal breast carcinoma. Pleural fluid cultures revealed no growth. White count 8.3. Hemoglobin 14.3. Platelets 229. Sodium 134. Potassium 5.0. Bicarb 30. BUN 15. Creatinine 0.6. Glucose 82. She is continued on DuoNeb ventilations, Solu-Medrol. NicoDerm patch in place. Heparin for DVT prophylaxis. Pain control with Dilaudid and [place]. The patient is seen today December 16, 2023 in follow-up on the regular medical floor. She is currently sitting up in bed. Awake and alert in no acute distress. Denies any worsening shortness of breath, cough or congestion. Pleural fluid cultures revealed no growth. Fluid cytology was positive for metastatic ductal breast carcinoma. White count 7.7. Hemoglobin 13.5. Platelets 212. Sodium 132. Potassium 4.9. Bicarb 28. BUN 21. Creatinine 0.6. Glucose 112. She is continued on DuoNeb inhalations, Solu-Medrol. Heparin for DVT prophylaxis. NicoDerm patch in place. Pain is adequately controlled with [place]. Objective - Vital Signs Vital signs: Vital Signs Temp 97.9 F 12/16/23 07:42 Pulse 100 12/16/23 08:10 Resp 18 12/16/23 07:42 BP 117/75 12/16/23 07:42 Pulse Ox 94 L 12/16/23 08:01 FiO2 21 12/16/23 08:01 Intake & Output 12/15/23 12/16/23 12/16/23 18:59 06:59 18:59 Intake Total 590 590 337 Balance 590 590 337 Weight 42.184 kg Intake: Oral 590 590 337 Other: Voiding Method Toilet # Voids 3 1 - Exam GENERAL EXAM: Alert, thin, pleasant 68-year-old female, on room air, comfortable in no apparent distress. HEAD: Normocephalic. EYES: Normal reaction of pupils, equal size. NOSE: Clear with pink turbinates. THROAT: No erythema or exudates. NECK: No masses, no JVD. CHEST: No chest wall deformity. Right IJ Mediport catheter in place. Status post left mastectomy LUNGS: Equal air entry with crackles in the left base. CVS: S1 and S2 normal with no audible murmur, regular rhythm. ABDOMEN: No hepatosplenomegaly, normal bowel sounds, no guarding or rigidity. SPINE: No scoliosis or deformity SKIN: No rashes CENTRAL NERVOUS SYSTEM: No focal deficits, tone is normal in all 4 extremities. EXTREMITIES: There is no peripheral edema. No clubbing, no cyanosis. Peripheral pulses are intact. - Labs CBC & Chem 7: 12/16/23 04:51 12/16/23 04:51 Labs: Abnormal Lab Results - Last 24 Hours (Table) 12/15/23 12/15/23 12/15/23 Range/Units 06:27 06:27 12:04 RBC (4.10-5.20) X 10*6/uL MCV 98.4 H (80.0-97.0) FL MCH 33.6 H (27.0-32.0) pg MPV 9.2 L (9.5-12.2) FL Immature Gran # 0.07 H (0.00-0.04) X 10*3/uL Monocytes # 1.02 H (0.20-1.00) X 10*3/uL Eosinophils # 0.01 L (0.04-0.35) X 10*3/uL Sodium 134 L (135-145) mmol/L Chloride 94 L (96-109) mmol/L BUN/Creatinine Ratio 24.67 H (12.00-20.00) Ratio Glucose (70-110) mg/dL POC Glucose (mg/dL) 125 H (70-110) mg/dL Total Bilirubin 0.2 L (0.3-1.2) mg/dL Total Protein 6.1 L (6.2-8.2) g/dL Albumin (3.8-4.9) g/dL 12/15/23 12/15/23 12/16/23 Range/Units 17:21 19:53 04:51 RBC 4.04 L (4.10-5.20) X 10*6/uL MCV 99.3 H (80.0-97.0) FL MCH 33.4 H (27.0-32.0) pg MPV (9.5-12.2) FL Immature Gran # (0.00-0.04) X 10*3/uL Monocytes # (0.20-1.00) X 10*3/uL Eosinophils # (0.04-0.35) X 10*3/uL Sodium (135-145) mmol/L Chloride (96-109) mmol/L BUN/Creatinine Ratio (12.00-20.00) Ratio Glucose (70-110) mg/dL POC Glucose (mg/dL) 185 H 185 H (70-110) mg/dL Total Bilirubin (0.3-1.2) mg/dL Total Protein (6.2-8.2) g/dL Albumin (3.8-4.9) g/dL 12/16/23 12/16/23 Range/Units 04:51 07:03 RBC (4.10-5.20) X 10*6/uL MCV (80.0-97.0) FL MCH (27.0-32.0) pg MPV (9.5-12.2) FL Immature Gran # (0.00-0.04) X 10*3/uL Monocytes # (0.20-1.00) X 10*3/uL Eosinophils # (0.04-0.35) X 10*3/uL Sodium 132 L (135-145) mmol/L Chloride (96-109) mmol/L BUN/Creatinine Ratio 34.17 H (12.00-20.00) Ratio Glucose 112 H (70-110) mg/dL POC Glucose (mg/dL) 114 H (70-110) mg/dL Total Bilirubin 0.2 L (0.3-1.2) mg/dL Total Protein 5.6 L (6.2-8.2) g/dL Albumin 3.6 L (3.8-4.9) g/dL Assessment and Plan Assessment: Acute shortness of breath, multifactorial. She has COPD and a moderate size to large size left-sided pleural effusion which could be potentially metastatic/malignant in nature. As such, the patient underwent therapeutic thoracentesis. She was briefly placed on BiPAP and currently on room air Acute hypoxic respiratory failure secondary to above currently on 2 L nasal cannula Left-sided pleural effusion status post drainage of 1.2 L of pleural fluid from the left lung. The fluid is positive for metastatic ductal breast carcinoma COPD Chronic and ongoing tobacco dependence Metastatic breast cancer post left mastectomy and chemotherapy and hormonal t reatment. The most recent PET/CT that was done in 12/04/2023 showed metastatic disease with pulmonary, liver and skeletal involvement History of meningitis History of an ovarian cyst Plan: The patient was seen and evaluated Labs and medications reviewed Evaluate for possible home oxygen Continue bronchodilators Discontinue Solu-Medrol, initiate a prednisone taper Cleared for discharge from the pulmonary standpoint The pleural fluid may return and may require a Pleurx catheter down the road The patient is aware and verbalizes understanding Follow-up in our office in 1 week Follow-up closely with oncology This patient was seen independently by the pulmonary nurse practitioner addressing pulmonary issues I have personally seen and examined the patient, performed the documentation and the assessment and plan as written. Number of minutes spent on the visit: 22.
[2023-12-16 11:56] LABS: Glucose,Whole Blood 153 mg/dL (70-110)
--- NOTE | 2023-12-16 12:01 | P.DS ---
Providers Date of admission: 12/10/23 09:28 Expected date of discharge: 12/16/23 Attending physician: Katherine Hernandez Consults: 12/10/23 09:18 Consult Physician Urgent Consulting Provider: Regina Ledesma Consult Reason/Comments: Metastatic breast cancer Do you want consulting provider notified?: Yes Consult Physician Urgent Consulting Provider: Matt Vaz Consult Reason/Comments: Pleural effusion, COPD Do you want consulting provider notified?: Yes Primary care physician: Roney [facility] Hospital Course: Discharge diagnoses; Acute hypoxic respiratory failure resolved Left pleural effusion, Fluid cytology was positive for metastatic ductal breast carcinoma Left breast cancer status post mastectomy, finished chemotherapy last October with possible cutaneous metastasis is COPD exacerbation Severe protein calorie malnutrition Hospital course; This is a pleasant 68 years old female with past medical history of left breast cancer, she was on chemotherapy on and last October, she follows up with Dr. Gomez and she had a skin biopsy from her left mastectomy site which came back positive and she supposed to follow-up with Dr. Dee tomorrow. Presents today because of marked cough for the last 4-5 days which is nonproductive associated with dyspnea and some mild chest pain from her procedure but no other chest pain Patient was found to have left pleural effusion and underwent thoracocentesis and 1.2 L taken out She smokes about half pack per day and she was counseled to quit and she agrees to the nicotine patch. No alcohol or illicit drugs. She denies any change in urine or bowel habits. She works with no difficulty She is hemodynamically stable, currently she is on 2 L oxygen. At home she was not on oxygen She is mildly tachycardic with heart rate around 120 Sodium 129. Labs including CBC LFT BMP troponin, Liver enzymes were unremarkable ProBNP 159 Influenza A and type B, RSV, SARS (coronavirus) are and detected Chest x-ray showed left pleural effusion and consolidation , Repeat chest x-ray after thoracocentesis showing improvement EKG showing sinus tachycardia at [address]-T changes 12/11/2023 pt is awake and alert at baseline , getting breathing treatment which she thiniks helping her and improving , at bed side and he agrees she is improving pt states her dyspnea is improving no chest pain still some coughing pending pleural fluid cytolgoy on iv solumedrol 40 mg q6hr 12/12/2023 Awake and alert at baseline Mildly tachypneic Status post thoracocentesis and did cytology result Last night could not sleep because of pain at the mastectomy site radiating to the left arm most likely related to her cancer diagnosis *Pain medication today with IV Dilaudid on [place] 12/13/2023 Patient breathing is improving She is status post left thoracocentesis. Cytology is pending Oncology team on the case for left breast cancer status post mastectomy. Pain at the cancer site is better controlled with narcotics she couldn't sleep last night She looks more relaxed today Pain management call or set up with the patient and she verbalized understanding and acceptance. Family/ at bedside 12/14. Patient seen and examined. States chest pain has improved. Denies any shortness of breath at rest 12/15. Patient seen and examined. Lying comfortably in the bed. Denies any chest pain. Vital signs stable 12/16. Patient seen and examined.Fluid cytology was positive for metastatic ductal breast carcinoma. Pulmonology recommend discharging patient on prednisone and Ventolin. Outpatient follow-up with hematology oncology PHYSICAL EXAMINATION: GENERAL: The patient is alert and oriented x3, not in any acute distress. Chronically ill looking HEENT: Pupils are round and equally reacting to light. EOMI. No scleral icterus. No conjunctival pallor. Normocephalic, atraumatic. No pharyngeal erythema. No thyromegaly. CARDIOVASCULAR: S1 and S2 present. No murmurs, rubs, or gallops. PULMONARY: Chest is clear to auscultation, no wheezing or crackles. ABDOMEN: Soft, nontender, nondistended, normoactive bowel sounds. No palpable organomegaly. MUSCULOSKELETAL: No joint swelling or deformity. EXTREMITIES: No cyanosis, clubbing, or pedal edema. NEUROLOGICAL: Gross neurological examination did not reveal any focal deficits. SKIN: No rashes. Dictation was produced using [employer] dictation software. please excuse any grammatical, word or spelling errors. Patient Condition at Discharge: Fair Plan - Discharge Summary Discharge Rx Participant: No New Discharge Prescriptions: New predniSONE 10 mg PO DAILY 8 Days #20 tab Albuterol Sulfate [Ventolin HFA] 2 puff INHALATION Q6H PRN #1 each PRN Reason: Shortness Of Breath Or Wheezing HYDROcodone/APAP 5-325MG [[place] 5-325] 1 each PO Q6HR PRN 3 Days #12 tab PRN Reason: Pain Continue Levothyroxine Sodium [Synthroid] 88 mcg PO DAILY LORazepam [Ativan] 2 mg PO BID Azithromycin [Zithromax Z Pack] See Taper PO DIRECTED Discontinued methylPREDNISolone [Medrol Dose Pack] See Taper PO DIRECTED Discharge Medication List Levothyroxine Sodium [Synthroid] 88 mcg PO DAILY 03/10/23 [History] Azithromycin [Zithromax Z Pack] See Taper PO DIRECTED 12/10/23 [History] LORazepam [Ativan] 2 mg PO BID 12/10/23 [History] Albuterol Sulfate [Ventolin HFA] 2 puff INHALATION Q6H PRN #1 each 12/16/23 [Rx] HYDROcodone/APAP 5-325MG [[place] 5-325] 1 each PO Q6HR PRN 3 Days #12 tab 12/16/23 [Rx] predniSONE 10 mg PO DAILY 8 Days #20 tab 12/16/23 [Rx] Follow up Appointment(s)/Referral(s): Isra Dee [STAFF PHYSICIAN] - 12/24/23 2:30 pm Roney Lema DO [Primary Care Provider] - 1-2 days Matt Vaz MD [STAFF PHYSICIAN] - 1 Week Discharge Disposition: HOME WITH HOME HEALTH SERVICES
[2023-12-16 12:46] VITALS: BP 123/72; PULSE 122; RESP 16; TEMP 97.5
[2023-12-16 13:18] LABS: Glucose,Whole Blood 141 mg/dL (70-110)
--- NOTE | 2023-12-16 14:01 | P.PN ---
Subjective Progress Note Date: 12/16/23 Principal diagnosis: TNBC, pleural effusion Pt reports that her breathing is stable, not as good as it was for a few days right after thoracentesis. She denies any fevers, she is tolerating oral intake, she has not had any further instances of chest pain or palpitations, cardiology workup is complete, no cardiac pathology identified. Patient thinks that she had a rather severe panic attack. She does not feel that the Ativan is working for her anymore. She is reporting to me that she is not able to lay flat to sleep as it causes her significant shortness of breath. She is going to be tested to see if she needs oxygen at home. Objective - Vital Signs Vital signs: Vital Signs Temp 97.5 F L 12/16/23 11:45 Pulse 123 H 12/16/23 12:19 Resp 16 12/16/23 11:45 BP 123/72 12/16/23 11:45 Pulse Ox 96 12/16/23 12:19 FiO2 21 12/16/23 08:01 Intake & Output 12/15/23 12/16/23 12/16/23 18:59 06:59 18:59 Intake Total 590 590 337 Balance 590 590 337 Weight 42.184 kg Intake: Oral 590 590 337 Other: Voiding Method Toilet # Voids 3 1 - Constitutional General appearance: Present: cooperative, no acute distress, thin - EENT Eyes: Present: anicteric sclerae, EOMI ENT: Present: hearing grossly normal - Respiratory Respiratory: right: CTA, left: diminished (lwr 1/3 ) - Cardiovascular Rhythm: regular Heart sounds: normal: S1, S2 Abnormal Heart Sounds: Absent: systolic murmur, diastolic murmur, rub, S3 Gallop, S4 Gallop, click, other - Peripheral edema leg Peripheral Edema: bilateral: None - Musculoskeletal Musculoskeletal: Present: strength equal bilaterally - Psychiatric Psychiatric: Present: A&O x's 3, appropriate affect, intact judgment & insight - Labs CBC & Chem 7: 12/16/23 04:51 12/16/23 04:51 Labs: Abnormal Lab Results - Last 24 Hours (Table) 12/15/23 12/15/23 12/16/23 Range/Units 17:21 19:53 04:51 RBC 4.04 L (4.10-5.20) X 10*6/uL MCV 99.3 H (80.0-97.0) FL MCH 33.4 H (27.0-32.0) pg Sodium (135-145) mmol/L BUN/Creatinine Ratio (12.00-20.00) Ratio Glucose (70-110) mg/dL POC Glucose (mg/dL) 185 H 185 H (70-110) mg/dL Total Bilirubin (0.3-1.2) mg/dL Total Protein (6.2-8.2) g/dL Albumin (3.8-4.9) g/dL 12/16/23 12/16/23 12/16/23 Range/Units 04:51 07:03 11:55 RBC (4.10-5.20) X 10*6/uL MCV (80.0-97.0) FL MCH (27.0-32.0) pg Sodium 132 L (135-145) mmol/L BUN/Creatinine Ratio 34.17 H (12.00-20.00) Ratio Glucose 112 H (70-110) mg/dL POC Glucose (mg/dL) 114 H 153 H (70-110) mg/dL Total Bilirubin 0.2 L (0.3-1.2) mg/dL Total Protein 5.6 L (6.2-8.2) g/dL Albumin 3.6 L (3.8-4.9) g/dL 12/16/23 Range/Units 12:59 RBC (4.10-5.20) X 10*6/uL MCV (80.0-97.0) FL MCH (27.0-32.0) pg Sodium (135-145) mmol/L BUN/Creatinine Ratio (12.00-20.00) Ratio Glucose (70-110) mg/dL POC Glucose (mg/dL) 141 H (70-110) mg/dL Total Bilirubin (0.3-1.2) mg/dL Total Protein (6.2-8.2) g/dL Albumin (3.8-4.9) g/dL Assessment and Plan (1) Pleural effusion Current Visit: Yes Status: Acute Priority: High Code(s): J90 - PLEURAL EFFUSION, NOT ELSEWHERE CLASSIFIED SNOMED Code(s): 69538622 (2) Triple negative breast cancer Current Visit: Yes Status: Acute Priority: High Code(s): C50.919 - MALIGNANT NEOPLASM OF UNSP SITE OF UNSPECIFIED FEMALE BREAST SNOMED Code(s): 240629888 Plan: Pleural effusion -Pleural effusion cytology positive for breast cancer. These results were reviewed with the patient. -Shortness of breath significantly improved status post 1200 cc thoracentesis on the left. Patient does report that she can tell that there is likely fluid recurring. -Patient does understand that with the fluid being of malignant origin, it will be recurrent until she begins some sort of therapy for breast cancer. -Case was discussed briefly with Pulmonary DNP. Plan at this time is for pulmonary assessment next week and CXR. They will perform thoracentesis as needed. Based on treatment plans, frequency of symptomatic pleural effusion recurrence, decision for placement of a pleurex drain can be made in the future. Metastatic, triple negative breast cancer -Most recently been on treatment with xeloda and keytruda -Unfortunately, left chest wall biopsy on 11/18/23 revealed invasive mammary ductal carcinoma. PET/CT on 12/03/2023 revealed disease progression with uptake within mediastinal and hilar lymph nodes, uptake within the liver, new osseous metastases including thoracic vertebral bodies and right ilium and left anterior rib. Persistent intense uptake in the distal sigmoid colon. Pleural fluid cytology unfortunately has returned positive for the same. -Will request NGS, PDL-1 on cytology to see if patient would qualify for any tar geted therapy. -Clinic f/u is planned to discuss what treatment options will be available to her once we have NGS testing results. -All of patient's questions were answered to her and her daughter satisfaction. They agree with the above-stated plan Patient reporting lack of effectiveness of Ativan. This will be changed to Xanax. They are agreeable with that plan. Patient has asked for a hospital bed at home. Patient has malignant pleural effusion that requires the head of the bed to be elevated more than 30 degrees most of the time to alleviate dyspnea. Have spoken with gearcase assembler, order signed for the same. O2 evaluation prior to discharge Time with Patient: Greater than 30
[2023-12-16] MEDS ORDERED: ALPRAZolam 0.5 MG TAB PO SCH (16:00)
[2023-12-17] MEDS ORDERED: predniSONE 10 MG TAB PO SCH (09:00)
== END 2023-12-16 15:50 | disposition home health service (06) | DRG 597 ==
LOC: EC 07:59 → 5NMEDONC 09:28
PROVIDERS: ADMIT Hospitalist; ATTEND Hospitalist
PROC: 0W9B3ZZ Drainage of Left Pleural Cavity, Percutaneous Approach (ICD-10-PCS; principal; 2023-12-10)
PROC: 5A09357 Assistance with Respiratory Ventilation, Less than 24 Consecutive Hours, Continuous Positive Airway Pressure (ICD-10-PCS; 2023-12-10)
DX: C50.912 Malignant neoplasm of unspecified site of left female breast (principal); E43 Unspecified severe protein-calorie malnutrition; J96.01 Acute respiratory failure with hypoxia; J44.1 Chronic obstructive pulmonary disease with (acute) exacerbation; C77.9 Secondary and unspecified malignant neoplasm of lymph node, unspecified; C79.51 Secondary malignant neoplasm of bone; C78.7 Secondary malignant neoplasm of liver and intrahepatic bile duct; J91.0 Malignant pleural effusion; Z68.1 Body mass index [BMI] 19.9 or less, adult; C78.02 Secondary malignant neoplasm of left lung; C78.01 Secondary malignant neoplasm of right lung; F17.210 Nicotine dependence, cigarettes, uncomplicated; Z85.3 Personal history of malignant neoplasm of breast; Z90.12 Acquired absence of left breast and nipple; Z92.21 Personal history of antineoplastic chemotherapy; Z17.1 Estrogen receptor negative status [ER-]; E03.9 Hypothyroidism, unspecified; F41.9 Anxiety disorder, unspecified; Z79.890 Hormone replacement therapy; Z85.118 Personal history of other malignant neoplasm of bronchus and lung; Z90.710 Acquired absence of both cervix and uterus; Z80.0 Family history of malignant neoplasm of digestive organs; Z96.1 Presence of intraocular lens; Z98.42 Cataract extraction status, left eye; Z98.41 Cataract extraction status, right eye; Z86.61 Personal history of infections of the central nervous system
CPT/HCPCS: 36415; 71045; 71046; 80048; 80053; 82945; 83036; 83605; 83615; 83735; 83880; 84157; 84484; 85025; 85027; 85610; 85730; 87070; 87205; 87636; 88108; 88305; 88341; 88342; 89050; 93005; 93306; 94640; 94660; 94760; 96361; 96374; 96375; 99285

== ENCOUNTER → 2023-12-23 | Day surgery (SDC) | payer MEDICARE, OTHER ==
[~2023-12-23] MED LIST changes: -ACETAMINOPHEN TAB 500 MG TAB PO PRN; -HEPARIN SODIUM,PORCINE/PF 5,000 UNIT/0.5 ML SYRINGE SQ PRN; -Pre Op ABX Message 1 EACH MISC MISCELLANE ONE; +SODIUM CHLORIDE 0.9% 500 ML 500 ML in EMPTY BAG 1 BAG IV PRN
[2023-12-23 12:36] VITALS: RESP 16; TEMP 97.6
--- NOTE | 2023-12-23 12:54 | XR ---
EXAMINATION TYPE: XR chest 1V portable DATE OF EXAM: 12/23/2023 COMPARISON: 12/21/2023. HISTORY: Pleural effusion. TECHNIQUE: Single frontal view of the chest is obtained. IMPRESSION: There is significant decrease in the size of the left pleural effusion which is small at this time. S mall right pleural effusion is present which appears similar to slightly more prominent than the prev ious examination. Right-sided Mediport is unchanged. There are surgical clips in the left axillary region. The cardiac silhouette and pulmonary vessels appear to be within normal limits.
--- NOTE | 2023-12-23 13:01 | P.PCN ---
Date of Procedure: 12/23/23 Operative Findings: Preoperative Diagnosis: Left-sided pleural effusion Postoperative Diagnosis: Left-sided pleural effusion Procedure(s) Performed: Left-sided thoracentesis Anesthesia: local Surgeon: Matt Vaz Estimated Blood Loss (ml): 0 Pathology: other Condition: stable Disposition: floor Operative Findings: A time out was performed and the chest x-ray was reviewed, the appropriate side was confirmed and marked. My hands were washed immediately prior to the procedure. I wore a surgical cap, mask with protective eyewear, sterile gown and sterile gloves throughout the procedure. The patient was prepped and draped in a sterile manner using chlorhexidine scrub after the appropriate level was percussed and confirmed by ultrasound. 1% lidocaine was used to anesthesize the skin, subcutaneous tissue, superior aspect of the rib periosteum and parietal pleura. A finder needle was then introduced over the superior aspect of the rib to locate the pleural fluid; 2colored fluid was aspirated at a depth of approximately 2 cm. A 10-blade scalpel was used to chaitanya the skin at the insertion site. The [id number] needle was then introduced through the skin incision into the pleural space using negative aspiration pressure and the red colometric indicator to confirm appropriate positioning of the needle. The thoracentesis catheter was then threaded without difficulty. 1000 ml of turbid colored fluid was removed without difficulty. The catheter was then removed. No immediate complications were noted during the procedure. A post-procedure chest x-ray is pending at the time of this note. The fluid will not be sent for studies. Estimated blood loss is 0cc
[2023-12-23 13:08] VITALS: BP 118/74; PULSE 86
== END ==
LOC: PROCWHC3 11:45
PROVIDERS: ATTEND Internal Medicine Critical Care Medicine
DX: J90 Pleural effusion, not elsewhere classified (principal)
CPT/HCPCS: 32554; 71045

== ENCOUNTER 2023-12-31 22:26 | Inpatient (IN) | payer MEDICARE, OTHER ==
--- NOTE | 2023-12-31 23:07 | ED ---
General Adult HPI <Rafiq Friedman - Last Filed: 12/31/23 23:09> <Justin Valdovinos - Last Filed: 01/01/24 02:07> - General Stated complaint: Back pain Time Seen by Provider: 12/31/23 23:07 - History of Present Illness Initial comments: Quicknote 68-year-old female with a past medical history significant for cancer status post mastectomy finished chemotherapy. Presenting to the ED with a chief complaint of chest pain. Reports she was previously here and found to have left pleural effusion which was drained. Was discharged and since then reports ongoing pain in left side of her chest. Was prescribed [place] however states that this is no longer helping relieve pain. Associated shortness of breath. (Rafiq Friedman) Dictation was produced using [employer] dictation software. please excuse any grammatical, word or spelling errors. Chief Complaint: 68-year-old female presents with left-sided chest pain History of Present Illness: Patient 60-year-old female she has extensive history of breast cancer status postmastectomy, chemo and radiation therapy. She also has associated complication of left-sided pleural effusions. She states that she requires thoracentesis every 2 weeks. She complains of her left-sided cancer pain being significantly worse and not controlled with [place]. Denies any fever. No coughing. Denies any shortness of breath. Patient is not sure if her pleural effusion had recurred because generally she feels better after thoracentesis. States that the pain is sharp. The ROS documented in this emergency department record has been reviewed and confirmed by me. Those systems with pertinent positive or negative responses have been documented in the HPI. All other systems are other negative and/or noncontributory. (Justin Valdovinos) - Related Data Home Medications Medication Instructions Recorded Confirmed Levothyroxine Sodium [Synthroid] 88 mcg PO DAILY 03/10/23 12/23/23 ALPRAZolam [Xanax] 0.5 mg PO TID PRN 12/23/23 12/23/23 Previous Rx's Medication Instructions Recorded Albuterol Sulfate [Ventolin HFA] 2 puff INHALATION Q6H PRN #1 each 12/16/23 HYDROcodone/APAP 5-325MG [[place] 1 each PO Q6HR PRN 3 Days #12 tab 12/16/23 5-325] predniSONE 10 mg PO DAILY 8 Days #20 tab 12/16/23 Allergies Allergy/AdvReac Type Severity Reaction Status Date / Time No Known Allergies Allergy Verified 12/31/23 23:05 Review of Systems ROS Other: All systems not noted in ROS Statement are negative. <Rafiq Friedman - Last Filed: 12/31/23 23:09> ROS Other: All systems not noted in ROS Statement are negative. <Justin Valdovinos - Last Filed: 01/01/24 02:07> ROS Statement: Those systems with pertinent positive or pertinent negative responses have been documented in the HPI. Past Medical History Past Medical History: Cancer, COPD, Eye Disorder Additional Past Medical History / Comment(s): MENINGITIS, 19 YRS OLD ovarian cyst burst., NO MEDS FOR COPD. , FLOATER RIGHT EYE., LEFT BREAST CANCER - pt had a recent PET scan that showed at spot that they wanted to check out for mets. History of Any Multi-Drug Resistant Organisms: None Reported Past Surgical History: Hysterectomy, Tonsillectomy Additional Past Surgical History / Comment(s): RUPTURED GRAFIAN FOLLICLE, HARITHA CATARACTS with lens implants Past Anesthesia/Blood Transfusion Reactions: No Reported Reaction Additional Past Anesthesia/Blood Transfusion Reaction / Comment(s): HX OF BLOOD TRANSFUSION-NO REACTION Past Psychological History: Anxiety Smoking Status: Current every day smoker, Light tobacco smoker Past Alcohol Use History: Occasional Additional Past Alcohol Use History / Comment(s): pt states smokes 3/4 pack per day, SMOKED LESS THAN 1PPD, SMOKED FOR 40 YEARS. Past Drug Use History: None Reported Additional Drug Use History / Comment(s): CBD COFFEE once per year- INSTRUCTED NOT TO USE 24 HRS PRIOR TO SURGERY. - Past Family History Father Family Medical History: Cancer Additional Family Medical History / Comment(s): PANCREATIC CANCER Brother(s) Family Medical History: Cancer, Thyroid Disorder Additional Family Medical History / Comment(s): STOMACH CANCER <Rafiq Friedman - Last Filed: 12/31/23 23:09> General Exam <Rafiq Friedman - Last Filed: 12/31/23 23:09> <Justin Valdovinos - Last Filed: 01/01/24 02:07> - General Exam Comments Initial Comments: Visual Physical Exam Vital signs reviewed General: Well-appearing, nontoxic, no acute distress. Head: Normocephalic, atraumatic Eyes: PERRLA, EOMI ENT: Airway patent Chest: Nonlabored breathing Skin: No visual rash, normal skin tone Neuro: Alert and oriented 3 Musculoskeletal: No gross abnormalities (Rafiq Friedman) PHYSICAL EXAM: General Impression: Alert and oriented x3, not in acute distress HEENT: Normocephalic atraumatic, extra-ocular movements intact, pupils equal and reactive to light bilaterally, mucous membranes moist. Cardiovascular: Heart regular rate and rhythm Chest: Able to complete full sentences, no retractions, no tachypnea, surgical site clean dry intact, bilateral breath sounds with no obvious wheezing. Sounds on the left sound slightly more coarse compared to the right Abdomen: abdomen soft, non-tender, non-distended, no organomegaly Musculoskeletal: Pulses present and equal in all extremities, no peripheral edema Motor: no focal deficits noted Neurological: CN II-XII grossly intact, no focal motor or sensory deficits noted Skin: Intact with no visualized rashes Psych: Normal affect and mood (Justin Valdovinos) Course Vital Signs 12/31/23 23:05 Temperature 98.0 F Pulse Rate 88 Respiratory 22 Rate Blood Pressure 115/79 O2 Sat by Pulse 94 L Oximetry EKG Findings - EKG Comments: EKG Findings:: My EKG interpretation: Ventricular rate 93, sinus rhythm, GA interval 103, QRS 81, QTc 32. No GA prolongation, no QTC prolongation, no ST or T-wave changes noted. Overall, this EKG is unremarkable <Justin Valdovinos - Last Filed: 01/01/24 02:07> Medical Decision Making <Rafiq Friedman - Last Filed: 12/31/23 23:09> - Lab Data Result diagrams: 12/31/23 23:35 12/31/23 23:35 <Justin Valdovinos - Last Filed: 01/01/24 02:07> - Medical Decision Making Quicknote portion performed. Signed Rafiq Friedman PA-C (Rafiq Friedman) Was pt. sent in by a medical professional or institution (Dr. PA, TILE EDGER, urgent care, hospital, or [place] [facility] care facility...) When possible be specific @ -No Did you speak to anyone other than the patient for history (EMS, parent, family, police, friend...)? What history was obtained from this source @ -No Did you review nursing and triage notes (agree or disagree)? Why? @ -I reviewed and agree with nursing and triage notes Were old charts reviewed (outside hosp., previous admission, EMS record, old EKG, old radiological studies, urgent care reports/EKG's, [place] [facility] care facility records)? Report findings @ -Previous charting was reviewed. There is a discharge summary from December 16, 2023 showing that patient was admitted at that time she was found to have pleural effusion that was positive for carcinogenic related pleural effusion. Differential Diagnosis (chest pain, altered mental status, abdominal pain women, abdominal pain men, vaginal bleeding, musculoskeletal, weakness, fever, dyspnea, syncope, headache, dizziness, GI bleed, back pain, seizure, CVA, palpatations, mental health)? @ -Differential Chest Pain: Stable Angina, Unstable Angina, STEMI, NSTEMI Aortic Dissection, Pneumothorax, Musculoskeletal, Esophageal Spasm GERD, Cholecystitis, Pancreatitis, Zoster, this is not meant to be an all-inclusive list. EKG interpreted by me (3pts min.). @ -See above X-rays interpreted by me (1pt min.). @ -Left lung consolidation CT interpreted by me (1pt min.). @ -None done U/S interpreted by me (1pt. min.). @ -None done What testing was considered but not performed or refused? (CT, X-rays, U/S, labs)? Why? @ -None What meds were considered but not given or refused? Why? @ -None Did you discuss the management of the patient with other professionals (professionals i.e. , PA, TILE EDGER, lab, RT, psych nurse, neonatal social worker, corporate tax preparer, teacher, chief security and safety officer, case reviewer)? Give summary @ -Case discussed with hospitalist for admission Was smoking cessation discussed for >3mins.? @ -No Was critical care preformed (if so, how long)? @ -No Were there social determinants of health that impacted care today? How? (Homelessness, low income, unemployed, alcoholism, drug addiction, transportation, low edu. Level, literacy, decrease access to med. care, retirement, rehab)? @ -No Was there de-escalation of care discussed even if they declined (Discuss DNR or withdrawal of care, Hospice)? DNR status @ -No What co-morbidities impacted this encounter? (DM, HTN, Smoking, COPD, CAD, Cancer, CVA, ARF, Chemo, Hep., AIDS, mental health diagnosis, sleep apnea, morbid obesity)? @ -None Was patient admitted / discharged? Hospital course, mention meds given and route, prescriptions, significant lab abnormalities, going to OR and other pertinent info. @ -68-year-old female with extensive history of breast cancer and breast cancer related complications. Vital signs upon arrival are within acceptable limits. Patient well-appearing at the bedside. States that her pain is characteristic of the pain she has been suffering on a daily basis since October. States that her symptoms not controlled with her home pain medications. Physical examination is benign. Patient is well-appearing. X-ray shows consolidation of the left lungs. This likely cancer related. She does not have any lung infectious type symptoms. Patient given IV analgesics. She does not feel comfortable going home secondary to the pain. Patient be admitted for IV pain control and oncology consultation. Undiagnosed new problem with uncertain prognosis? @ -No Drug Therapy requiring intensive monitoring for toxicity (Heparin, Nitro, Insulin, Cardizem)? @ -No Were any procedures done? @ -No Diagnosis/symptom? Acute, or Chronic, or Acute on Chronic? Uncomplicated (with out systemic symptoms) or Complicated (systemic symptoms)? @ -Cancer pain Side effects of treatment? @ -No Exacerbation, Progression, or Severe Exacerbation? @ -No Poses a threat to life or bodily function? How? (Chest pain, [place], [place], pneumonia, PE, COPD, DKA, ARF, appy, cholecystitis, CVA, Diverticulitis, Homicidal, Suicidal, threat to staff... and all critical care pts) @ -yes (Justin Valdovinos) - Lab Data Lab Results 12/31/23 12/31/23 12/31/23 Range/Units 23:35 23:35 23:35 WBC 6.8 (3.8-10.6) k/uL RBC 4.02 (3.80-5.40) m/uL Hgb 13.7 (11.4-16.0) gm/dL Hct 40.6 (34.0-46.0) % MCV 101.0 H (80.0-100.0) fL MCH 34.1 (25.0-35.0) pg MCHC 33.8 (31.0-37.0) g/dL RDW 13.6 (11.5-15.5) % Plt Count 154 (150-450) k/uL MPV 7.5 Neutrophils % 80 % Lymphocytes % 12 % Monocytes % 5 % Eosinophils % 1 % Basophils % 1 % Neutrophils # 5.4 (1.3-7.7) k/uL Lymphocytes # 0.8 L (1.0-4.8) k/uL Monocytes # 0.4 (0-1.0) k/uL Eosinophils # 0.1 (0-0.7) k/uL Basophils # 0.0 (0-0.2) k/uL Macrocytosis Slight Sodium 134 L (137-145) mmol/L Potassium 4.0 (3.5-5.1) mmol/L Chloride 106 (98-107) mmol/L Carbon Dioxide 23 (22-30) mmol/L Anion Gap 5 mmol/L BUN 13 (7-17) mg/dL Creatinine 0.47 L (0.52-1.04) mg/dL Est GFR (CKD-EPI)AfAm >90 (>60 ml/min/1.73 sqM) Est GFR (CKD-EPI)NonAf >90 (>60 ml/min/1.73 sqM) Glucose 101 H (74-99) mg/dL Calcium 8.9 (8.4-10.2) mg/dL Magnesium 1.9 (1.6-2.3) mg/dL Total Bilirubin 0.5 (0.2-1.3) mg/dL AST 29 (14-36) U/L ALT 27 (4-34) U/L Alkaline Phosphatase 110 (38-126) U/L Troponin I <0.012 (0.000-0.034) ng/mL NT-Pro-B Natriuret Pep 60 pg/mL Total Protein 5.7 L (6.3-8.2) g/dL Albumin 3.4 L (3.5-5.0) g/dL Disposition <Rafiq Friedman - Last Filed: 12/31/23 23:09> Decision Time: 02:07 <Justin Valdovinos - Last Filed: 01/01/24 02:07> Clinical Impression: Cancer associated pain Disposition: ADMITTED IP TO THIS HOSP Condition: Fair Referrals: None,Stated [Primary Care Provider] - 1-2 days
[2023-12-31] MEDS: HYDROmorphone 1 MG/ML 1 ML SYRINGE IVP STA (23:44)
[2023-12-31 23:53] LABS: Basophils % (A) 1 %; Eosinophils # (A) 0.1 k/uL (0-0.7); Eosinophils % (A) 1 %; HCT 40.6 % (34.0-46.0); HGB 13.7 gm/dL (11.4-16.0); Lymphocytes # (A) 0.8 k/uL (1.0-4.8); Lymphocytes % (A) 12 %; MCH 34.1 pg (25.0-35.0); MCHC 33.8 g/dL (31.0-37.0); Macrocytosis Slight; Mean Platelet Volume 7.5; Monocytes # (A) 0.4 k/uL (0-1.0); Monocytes % (A) 5 %; Neutrophils # (A) 5.4 k/uL (1.3-7.7); Neutrophils % (A) 80 %; Platelet Count 154 k/uL (150-450); RBC 4.02 m/uL (3.80-5.40); RDW 13.6 % (11.5-15.5); WBC 6.8 k/uL (3.8-10.6)
[2024-01-01 00:04] LABS: ALT 27 U/L (4-34); AST 29 U/L (14-36); African American GFR (CKD) >90 (>60 ml/min/1.73 sqM); Albumin 3.4 g/dL (3.5-5.0); Alkaline Phosphatase 110 U/L (38-126); Anion Gap 5 mmol/L; Blood Urea Nitrogen 13 mg/dL (7-17); Calcium 8.9 mg/dL (8.4-10.2); Carbon Dioxide 23 mmol/L (22-30); Chloride 106 mmol/L (98-107); Glucose 101 mg/dL (74-99); Magnesium 1.9 mg/dL (1.6-2.3); Non-African American GFR(CKD) >90 (>60 ml/min/1.73 sqM); Sodium 134 mmol/L (137-145); Total Bilirubin 0.5 mg/dL (0.2-1.3); Total Protein 5.7 g/dL (6.3-8.2)
[2024-01-01 00:12] LABS: NT-Pro-B-Type Natriuretic Pept 60 pg/mL
--- NOTE | 2024-01-01 00:25 | XR ---
EXAM: XR Chest, 2 Views CLINICAL HISTORY: ITS.REASON XR Reason: Hx cancer and reccurent plural effusion.Chest pain TECHNIQUE: Frontal and lateral views of the chest. COMPARISON: CXR December 21, 2023. FINDINGS: Lungs: Pulmonary edema. Elevated LEFT hemidiaphragm. Small bilateral pleural effusions. Consolidation in the LEFT midlung field, concerning for pneumonia. Pleural space: See above. Heart: Unremarkable. No cardiomegaly. Mediastinum: Unremarkable. Normal mediastinal contour. Bones/joints: Unremarkable. No acute fracture. Tubes, lines and devices: RIGHT Port-A-Cath terminate in the SVC. Compression. IMPRESSION: 1. Pulmonary edema. Elevated LEFT hemidiaphragm. Small bilateral pleural effusions. Correlate for congestive heart failure. 2. Consolidation in the LEFT midlung field, concerning for pneumonia.
[2024-01-01] MEDS ORDERED: NALOXONE 0.4 MG/ML 1 ML VIAL IV PRN (02:07)
[2024-01-01] MEDS: MORPHINE SULFATE 4 MG/ML SYRINGE IV STA (03:20)
[2024-01-01] MEDS: SODIUM CHLORIDE 0.9% 1,000 ML IV SCH (03:22)
[2024-01-01] MEDS: ONDANSETRON 4 MG/2 ML VIAL IVP PRN (05:08)
[2024-01-01] MEDS: MORPHINE SULFATE 4 MG/ML SYRINGE IV PRN (05:21)
[2024-01-01 11:18] LABS: INR 0.9 (<1.2); Partial Thromboplastin Time 23.6 sec (22.0-30.0); Prothrombin Time 10.2 sec (10.0-12.5)
[2024-01-01] MEDS: ALBUTEROL HFA INHALER INHALATION PRN (16:48)
--- NOTE | 2024-01-01 17:15 | P.HPIM ---
History of Present Illness H&P Date: 01/01/24 Chief Complaint: Uncontrolled pain 60-year-old female she has extensive history of breast cancer status post mastectomy, chemo and radiation therapy. She also has associated complication of left-sided pleural effusions. She states that she requires thoracentesis every 2 weeks. She complains of her left-sided cancer pain being significantly worse and not controlled with [place]. Denies any fever. No coughing. Denies any shortness of breath. Patient is not sure if her pleural effusion had recurred because generally she feels better after thoracentesis. States that the pain is sharp. Nodule completed in ED reveals a sodium of 134, potassium 4.0, BUN/creatinine of 13/0.47 and blood glucose of 101, WBC 6.8, hemoglobin 13.7 platelet count of 154 Review of Systems REVIEW OF SYSTEMS: CONSTITUTIONAL: No fever, no malaise, no fatigue. HEENT: No recent visual problems or hearing problems. Denied any sore throat. CARDIOVASCULAR: No chest pain, orthopnea, PND, no palpitations, no syncope. PULMONARY: No shortness of breath, no cough, no hemoptysis. GASTROINTESTINAL: No diarrhea, no nausea, no vomiting, no abdominal pain. NEUROLOGICAL: No headaches, no weakness, no numbness. HEMATOLOGICAL: Denies any bleeding or petechiae. GENITOURINARY: Denies any burning micturition, frequency, or urgency. MUSCULOSKELETAL/RHEUMATOLOGICAL: Denies any joint pain, swelling, or any muscle pain. ENDOCRINE: Denies any polyuria or polydipsia. The rest of the 14-point review of systems is negative. Past Medical History Past Medical History: Cancer, COPD, Eye Disorder Additional Past Medical History / Comment(s): MENINGITIS, 19 YRS OLD ovarian cyst burst., NO MEDS FOR COPD. , FLOATER RIGHT EYE., LEFT BREAST CANCER - pt had a recent PET scan that showed at spot that they wanted to check out for mets. History of Any Multi-Drug Resistant Organisms: None Reported Past Surgical History: Hysterectomy, Tonsillectomy Additional Past Surgical History / Comment(s): RUPTURED GRAFIAN FOLLICLE, HARITHA CATARACTS with lens implants Past Anesthesia/Blood Transfusion Reactions: No Reported Reaction Additional Past Anesthesia/Blood Transfusion Reaction / Comment(s): HX OF BLOOD TRANSFUSION-NO REACTION Past Psychological History: Anxiety Smoking Status: Current every day smoker, Light tobacco smoker Past Alcohol Use History: Occasional Additional Past Alcohol Use History / Comment(s): pt states smokes 3/4 pack per day, SMOKED LESS THAN 1PPD, SMOKED FOR 40 YEARS. Past Drug Use History: None Reported Additional Drug Use History / Comment(s): CBD COFFEE once per year- INSTRUCTED NOT TO USE 24 HRS PRIOR TO SURGERY. - Past Family History Father Family Medical History: Cancer Additional Family Medical History / Comment(s): PANCREATIC CANCER Brother(s) Family Medical History: Cancer, Thyroid Disorder Additional Family Medical History / Comment(s): STOMACH CANCER Medications and Allergies Home Medications Medication Instructions Recorded Confirmed Type Levothyroxine Sodium [Synthroid] 88 mcg PO DAILY 03/10/23 01/01/24 History ALPRAZolam [Xanax] 0.5 mg PO TID PRN 12/23/23 01/01/24 History Albuterol Sulfate [Ventolin HFA] 2 puff INHALATION RT-Q6H PRN 01/01/24 01/01/24 History HYDROcodone/APAP 5-325MG [[place] 1 tab PO Q6HR PRN 01/01/24 01/01/24 History 5-325] Allergies Allergy/AdvReac Type Severity Reaction Status Date / Time No Known Allergies Allergy Verified 01/01/24 07:43 Physical Exam Vitals: Vital Signs Temp Pulse Resp BP Pulse Ox 01/01/24 10:00 68 16 134/83 98 01/01/24 08:00 68 16 120/80 98 01/01/24 06:00 61 18 108/75 95 01/01/24 05:07 73 18 120/89 95 01/01/24 03:24 72 20 105/78 95 12/31/23 23:05 98.0 F 88 22 115/79 94 L Intake and Output 12/31/23 01/01/24 01/01/24 22:59 06:59 14:59 Other: Weight 42.638 kg General Impression: Alert and oriented x3, not in acute distress HEENT: Normocephalic atraumatic, extra-ocular movements intact, pupils equal and reactive to light bilaterally, mucous membranes moist. Cardiovascular: Heart regular rate and rhythm Chest: Able to complete full sentences, no retractions, no tachypnea, surgical site clean dry intact, bilateral breath sounds with no obvious wheezing. Sounds on the left sound slightly more coarse compared to the right Abdomen: abdomen soft, non-tender, non-distended, no organomegaly Musculoskeletal: Pulses present and equal in all extremities, no peripheral edema Motor: no focal deficits noted Neurological: CN II-XII grossly intact, no focal motor or sensory deficits noted Skin: Intact with no visualized rashes Psych: Normal affect and mood Results CBC & Chem 7: 12/31/23 23:35 12/31/23 23:35 Labs: Abnormal Lab Results - Last 24 Hours (Table) 12/31/23 12/31/23 Range/Units 23:35 23:35 MCV 101.0 H (80.0-100.0) fL Lymphocytes # 0.8 L (1.0-4.8) k/uL Sodium 134 L (137-145) mmol/L Creatinine 0.47 L (0.52-1.04) mg/dL Glucose 101 H (74-99) mg/dL Total Protein 5.7 L (6.3-8.2) g/dL Albumin 3.4 L (3.5-5.0) g/dL Assessment and Plan Assessment: 1. Cancer associated pain; patient has history of breast cancer and is status postmastectomy; completed chemotherapy and radiation therapy --Patient takes [place] 5 mg every 6 hours as needed at home; patient has been placed on morphine sulfate 4 mg IV every 4 hours as needed; continue with home dose of [place] -- Pending need for IV morphine, will plan to transition patient to oxycodone for better pain control -- Oncology has been consulted 2. Hypothyroidism; Synthroid 88 mcg daily 3. Anxiety; Xanax 0.5 mg 3 times daily 4. Asthma/COPD; not in exacerbation; continue with albuterol inhaler as needed DVT prophylaxis SCDs; CODE STATUS; full code
--- NOTE | 2024-01-01 19:17 | P.CONS ---
History of Present Illness - Reason for Consult Consult date: 01/01/24 cancer pain Requesting physician: Justin Valdovinos - Chief Complaint chest pain - History of Present Illness Ms Canchola is a pleasant white female, with a significnat history of metastatic breast cancer. She inittially presented with pain in her left breast. She therefore sought attention with her PCP, Dr. Lema. The patient had felt a mass in the central portion of the breast, which was confirmed on exam by her PCP. She therefore had a diagnostic mammogram on 06/12/22. This showed a large irregular, bilobed mass measuring 3.8 cm in the upper-outer quadrant. The patient had an ultrasound of the same day, that showed a 4.1 x 2.3 x 1.3 cm elongated irregular mass at 1:00, 8 cm from the nipple. In addition to that was an abnormally thickened lymph node measuring 9 mm. At 4:00, there was another irregular lesion measuring 1 x 0.7 cm and along the subareolar plane posteriorly a lesion measuring 1.8 x 0.9 cm. At the 11:00 there was a 0.9 x 0.7 cm lesion. The patient was therefore felt to have multicentric disease, and biopsy was recommended. Biopsy was performed on 06/26/22 for him to of the left breast masses and the axillary node. 1:00, and the 4:00 mass showed invasive ductal carcinoma grade 2, with the left axillary tail biopsy showing lymphoid tissue involved with grade 2 ductal carcinoma. Tumor morphology of all 3 specimens had similar appearance with ER and WI negative, and HER-2/audrey 0 by IHC. PET scan showed uptake in the breast lesions and left axilla. There was possibility of uptake in a left retropectoral nodes. There was no evidence of any distant metastatic disease. Incidental uptake was noted in the sigmoid colon, of unce rtain etiology. The patient did have a colonoscopy subsequently in the third week of 08/23, that was negative. She then started neoadjuvant treatment with carboplatin/Taxol/Keytruda, on 08/12/22, with carboplatin plus immunotherapy given every 3 weeks, and Taxol weekly. She completed 4 cycles on 10/29/22. She then started Adriamycin/Cytoxan plus keytruda and completing those in 02/02/23. She was then continued on keytruda every 3 weeks. The patient had surgery on 03/16/23, with left modified radical mastectomy, and lymph node dissection. This showed multifocal invasive residual ductal carcinoma with margins negative. There appeared to be treatment effect in the breast. 10 out of 14 lymph nodes were involved, without evidence of definite response to presurgical therapy. It was decided to change adjuvant therapy, based on significant amount of residual disease. The patient had breast Next Testing done, that showed no targetable germ line mutation. Therefore Xeloda was added, to keytruda. Xeloda had to be held multiple times due to progressive skin toxicity. She was referred to radi [facility] oncology during this time for adjuvant radiation/to avoid delays. On radiation oncology evaluation, she was noted to have a reddish confluent nodular rash involving the area of the incision on the left chest wall, that is felt to be suspicious for malignancy. She was referred back to surgery, and had a biopsy of this area on 11/18/23. Unfortunately biopsy revealed invasive mammary ductal carcinoma. PET/CT on 12/03/2023 revealed disease progression with uptake within mediastinal and hilar lymph nodes, uptake within the liver, new osseous metastases including thoracic vertebral bodies and right ilium and left anterior rib. Persistent intense uptake in the distal sigmoid colon. Cytology from thoracentesis during admission on 12/10/2023 was positive for metastatic ductal breast carcinoma. She was advised that, given the extent of disease, it would not be considered curable. The objective of treatment going forward would be prolongation of life and palliation of symptoms.At this time the plan from primary medicine standpoint is to do intermittent paracenteses, and consider chest tube placement, if rate of accumulation is too rapid. The patient will be started on palliative chemotherapy with Eribulin. Patient is scheduled for cycle 1 on 01/04/2024. Patient presented to the emergency room with complaints of chest pain and SOB. Pt reports prescribed norco was helping control pain well, but over last 3 days, medication stopped working to control pain causing her to present for further evaluation. She states chest pain is sternal and left sided and left lateral chest wall, radiating to left neck, LUE and left upper back. Patient denies cough, fever and chills. Upon admission chest x-ray showed pulmonary edema. Elevated left hemidiaphragm. Small bilateral pleural effusions. Consolidation in the left midlung field. Troponin negative, BNP 60. CBC showed, WBC 6.8, hemoglobin 13.7, platelets 154,000. At today's visit patient is reporting improvement in pain with IV pain medications. Review of Systems 10 point ROS is negative except as stated in the HPI Past Medical History Past Medical History: Cancer, COPD, Eye Disorder Additional Past Medical History / Comment(s): MENINGITIS, 19 YRS OLD ovarian cyst burst., NO MEDS FOR COPD. , FLOATER RIGHT EYE., LEFT BREAST CANCER - pt had a recent PET scan that showed at spot that they wanted to check out for mets. History of Any Multi-Drug Resistant Organisms: None Reported Past Surgical History: Hysterectomy, Tonsillectomy Additional Past Surgical History / Comment(s): RUPTURED GRAFIAN FOLLICLE, HARITHA CATARACTS with lens implants Past Anesthesia/Blood Transfusion Reactions: No Reported Reaction Additional Past Anesthesia/Blood Transfusion Reaction / Comm: HX OF BLOOD TRANSFUSION-NO REACTION Past Psychological History: Anxiety Smoking Status: Current every day smoker, Light tobacco smoker Past Alcohol Use History: Occasional Additional Past Alcohol Use History / Comment(s): pt states smokes 3/4 pack per day, SMOKED LESS THAN 1PPD, SMOKED FOR 40 YEARS. Past Drug Use History: None Reported Additional Drug Use History / Comment(s): CBD COFFEE once per year- INSTRUCTED NOT TO USE 24 HRS PRIOR TO SURGERY. - Past Family History Father Family Medical History: Cancer Additional Family Medical History / Comment(s): PANCREATIC CANCER Brother(s) Family Medical History: Cancer, Thyroid Disorder Additional Family Medical History / Comment(s): STOMACH CANCER Medications and Allergies Home Medications Medication Instructions Recorded Confirmed Type Levothyroxine Sodium [Synthroid] 88 mcg PO DAILY 03/10/23 01/01/24 History ALPRAZolam [Xanax] 0.5 mg PO TID PRN 12/23/23 01/01/24 History Albuterol Sulfate [Ventolin HFA] 2 puff INHALATION RT-Q6H PRN 01/01/24 01/01/24 History HYDROcodone/APAP 5-325MG [Tie [place]iding 1 tab PO Q6HR PRN 01/01/24 01/01/24 History 5-325] Allergies Allergy/AdvReac Type Severity Reaction Status Date / Time No Known Allergies Allergy Verified 01/01/24 07:43 Physical Exam Vitals: Vital Signs Temp Pulse Resp BP Pulse Ox 01/01/24 10:00 68 16 134/83 98 01/01/24 08:00 68 16 120/80 98 01/01/24 06:00 61 18 108/75 95 01/01/24 05:07 73 18 120/89 95 01/01/24 03:24 72 20 105/78 95 12/31/23 23:05 98.0 F 88 22 115/79 94 L Intake and Output 12/31/23 01/01/24 01/01/24 22:59 06:59 14:59 Other: Weight 42.638 kg - Constitutional General appearance: no acute distress, thin - EENT Eyes: anicteric sclerae, EOMI ENT: hearing grossly normal - Respiratory Respiratory: bilateral: rales (L>R) - Cardiovascular Rhythm: regular Heart sounds: normal: S1, S2 - Gastrointestinal General gastrointestinal: soft, no tenderness - Integumentary Integumentary: no cyanotic, no jaundiced - Musculoskeletal left sided and left lateral chest wall tenderness, with induration noted to left lateral chest wall Musculoskeletal: strength equal bilaterally - Psychiatric Psychiatric: A&O x's 3 Results CBC & Chem 7: 12/31/23 23:35 12/31/23 23:35 Labs: Abnormal Lab Results - Last 24 Hours (Table) 12/31/23 12/31/23 Range/Units 23:35 23:35 MCV 101.0 H (80.0-100.0) fL Lymphocytes # 0.8 L (1.0-4.8) k/uL Sodium 134 L (137-145) mmol/L Creatinine 0.47 L (0.52-1.04) mg/dL Glucose 101 H (74-99) mg/dL Total Protein 5.7 L (6.3-8.2) g/dL Albumin 3.4 L (3.5-5.0) g/dL Chest x-ray: report reviewed Assessment and Plan (1) Cancer associated pain Current Visit: Yes Status: Acute Priority: High Code(s): G89.3 - NEOPLASM RELATED PAIN (ACUTE) (CHRONIC) SNOMED Code(s): 82835298090072 (2) Metastasis from breast cancer Current Visit: Yes Status: Acute Priority: High Code(s): C79.9 - SECONDARY MALIGNANT NEOPLASM OF UNSPECIFIED SITE; C50.919 - MALIGNANT NEOPLASM OF UNSP SITE OF UNSPECIFIED FEMALE BREAST SNOMED Code(s): 077392701 Plan: Metastatic, triple negative breast cancer -Full history in HPI. Most recently been on treatment with xeloda and keytruda -Unfortunately, left chest wall biopsy on 11/18/23 revealed invasive mammary ductal carcinoma. PET/CT on 12/03/2023 revealed disease progression with uptake within mediastinal and hilar lymph nodes, uptake within the liver, new osseous metastases including thoracic vertebral bodies and right ilium and left anterior rib. Persistent intense uptake in the distal sigmoid colon. Pleural fluid cytology unfortunately has returned positive for the same. -She was advised that, given the extent of disease, it would not be considered curable. The objective of treatment going forward would be prolongation of life and palliation of symptoms.At this time the plan from primary medicine standpoint is to do intermittent paracenteses, and consider chest tube placement, if rate of accumulation is too rapid. The patient will be started on palliative chemotherapy with Eribulin and is scheduled for cycle 1 on 01/04/2024. Pending course of hospitalization may need to reschedule treatment Intractable pain: Presented with complaints of chest pain and associated SOB. Pt reports prescribed norco was helping control pain well, but over last 3 days, medication stopped working to control pain causing her to present for further evaluation. She states chest pain is located across sternum, left chest and left lateral chest wall, radiating to left neck, LUE and left upper back. -Upon admission chest x-ray showed pulmonary edema. Elevated left hemidiaphragm. Small bilateral pleural effusions. Consolidation in the left midlung field. Troponin negative, BNP 60. CBC showed, WBC 6.8, hemoglobin 13.7, platelets 154,000. -Reporting improvement in pain with IV pain medications. Will monitor how much IV pain medications pt is requiring over the next 24 hours and will transition to oral regimen. Will continue to monitor and make adjustments as needed. Stool softeners started for prevention of opiate induced constipation -May need to consider palliative RT, but to not delay chemo, will try to control pain with medications and can reevaluate for XRT if pain is not improving with treatment attests: I have performed H&P and developed impression and plan of care for patient, discussed with dictator. I agree with dictated note, documented as a scribe
[2024-01-01] MEDS: DOCUSATE 100 MG CAP PO SCH (20:10)
[2024-01-01] MEDS: ALPRAZolam 0.5 MG TAB PO PRN (22:30)
[2024-01-02] MEDS: LEVOTHYROXINE 88 MCG TAB PO SCH (06:15)
[2024-01-02] MEDS: HYDROcodone/APAP 5-325MG 1 EACH TAB PO PRN (09:01)
[2024-01-02 13:26] VITALS: BMI 16.1
--- NOTE | 2024-01-02 15:34 | P.PN ---
Subjective Progress Note Date: 01/02/24 Principal diagnosis: Metastatic triple negative breast cancer -Afebrile, no acute events overnight -Required a total of 20 mg of IV morphine over the past 24 hours and received dose of Jarbidge 5/325 this morning -She no significantly improved pain in the left chest wall compared to initial presentation -She denies any new signs or symptoms Objective - Vital Signs Vital signs: Vital Signs Temp 97.7 F 01/02/24 12:35 Pulse 63 01/02/24 12:35 Resp 17 01/02/24 12:35 BP 126/69 01/02/24 12:35 Pulse Ox 98 01/02/24 12:35 FiO2 Intake & Output 01/01/24 01/02/24 01/02/24 18:59 06:59 18:59 Weight 42.638 kg 42.638 kg Other: Voiding Method Toilet # Voids 1 - Constitutional General appearance: Present: cooperative, no acute distress - Respiratory Details: Nonlabored breathing - Cardiovascular Details: Warm and well-perfused - Gastrointestinal General gastrointestinal: Present: soft. Absent: distended - Integumentary Integumentary Comment(s): Firm indurated lesion on the left chest consistent with metastases to the skin of the chest wall - Neurologic Neurologic: Present: CNII-XII intact. Absent: focal deficits - Labs CBC & Chem 7: 12/31/23 23:35 12/31/23 23:35 Assessment and Plan (1) Cancer associated pain Current Visit: Yes Status: Acute Priority: High Code(s): G89.3 - NEOPLASM RELATED PAIN (ACUTE) (CHRONIC) SNOMED Code(s): 68774439205628 (2) Metastasis from breast cancer Current Visit: Yes Status: Acute Priority: High Code(s): C79.9 - SECONDARY MALIGNANT NEOPLASM OF UNSPECIFIED SITE; C50.919 - MALIGNANT NEOPLASM OF UNSP SITE OF UNSPECIFIED FEMALE BREAST SNOMED Code(s): 907561811 (3) Triple negative breast cancer Current Visit: No Status: Chronic Priority: High Code(s): C50.919 - MALIGNANT NEOPLASM OF UNSP SITE OF UNSPECIFIED FEMALE BREAST SNOMED Code(s): 937872012 Plan: Metastatic, triple negative breast cancer -Full history in HPI. Most recently been on treatment with xeloda and keytruda -Unfortunately, left chest wall biopsy on 11/18/23 revealed invasive mammary ductal carcinoma. PET/CT on 12/03/2023 revealed disease progression with uptake within mediastinal and hilar lymph nodes, uptake within the liver, new osseous metastases including thoracic vertebral bodies and right ilium and left anterior rib. Persistent intense uptake in the distal sigmoid colon. Pleural fluid cytology unfortunately has returned positive for the same. -She was advised that, given the extent of disease, it would not be considered curable. The objective of treatment going forward would be prolongation of life and palliation of symptoms.At this time the plan from primary medicine standpoint is to do intermittent paracenteses, and consider chest tube placement, if rate of accumulation is too rapid. The patient will be started on palliative chemotherapy with Eribulin and is scheduled for cycle 1 on 01/04/2024. Pending course of hospitalization may need to reschedule treatment Intractable pain: Presented with complaints of chest pain and associated SOB. Pt reports prescribed norco was helping control pain well, but over last 3 days, medication stopped working to control pain causing her to present for further evaluation. She states chest pain is located across sternum, left chest and left lateral chest wall, radiating to left neck, LUE and left upper back -This area was previously biopsied to be metastatic breast cancer -She is required 20 mg of IV morphine over the past 24 hours, equivalent to 60 mg of oral morphine -Jarbidge 5/325 taken this morning did provide moderate pain relief -We discussed alternative pain regimens including increasing Jarbidge to 10/325 every 4 hours as needed versus long-acting morphine 30 mg twice daily -She notes morphine causes nausea, which Jarbidge does not -We will try Jarbidge 10/325 mg every 4 hours as needed -Zofran increased to 8 mg every 8 hours as needed -In addition to Colace 100 mg twice daily, MiraLAX daily will be given for bowel regimen while on pain medication -If pain can be controlled with oral pain medications, will defer on palliative radiation to this region and initiate cycle 1 of eribulin as soon as possible Regina Ledesma MD
[2024-01-02] MEDS: HYDROcodone/APAP 10-325MG 1 EACH TAB PO PRN (16:46)
[2024-01-02] MEDS: polyethylene glycoL 3350 17 GM POWD.PACK PO SCH (16:46)
--- NOTE | 2024-01-02 16:54 | P.PN ---
Subjective Progress Note Date: 01/02/24 60-year-old female she has extensive history of breast cancer status post mastectomy, chemo and radiation therapy. She also has associated complication of left-sided pleural effusions. She states that she requires thoracentesis every 2 weeks. She complains of her left-sided cancer pain being significantly worse and not controlled with Hollywood. Denies any fever. No coughing. Denies any shortness of breath. Patient is not sure if her pleural effusion had recurred because generally she feels better after thoracentesis. States that the pain is sharp. Nodule completed in ED reveals a sodium of 134, potassium 4.0, BUN/creatinine of 13/0.47 and blood glucose of 101, WBC 6.8, hemoglobin 13.7 platelet count of 154 Objective - Vital Signs Vital signs: Vital Signs Temp 98.4 F 01/02/24 07:45 Pulse 61 01/02/24 07:45 Resp 18 01/02/24 09:00 BP 145/82 01/02/24 07:45 Pulse Ox 97 01/02/24 07:45 FiO2 Intake & Output 01/01/24 01/02/24 01/02/24 18:59 06:59 18:59 Weight 42.638 kg Other: Voiding Method Toilet # Voids 1 - Exam General Impression: Alert and oriented x3, not in acute distress HEENT: Normocephalic atraumatic, extra-ocular movements intact, pupils equal and reactive to light bilaterally, mucous membranes moist. Cardiovascular: Heart regular rate and rhythm Chest: Able to complete full sentences, no retractions, no tachypnea, surgical site clean dry intact, bilateral breath sounds with no obvious wheezing. Sounds on the left sound slightly more coarse compared to the right Abdomen: abdomen soft, non-tender, non-distended, no organomegaly Musculoskeletal: Pulses present and equal in all extremities, no peripheral edema Motor: no focal deficits noted Neurological: CN II-XII grossly intact, no focal motor or sensory deficits noted Skin: Intact with no visualized rashes Psych: Normal affect and mood - Labs CBC & Chem 7: 12/31/23 23:35 12/31/23 23:35 Assessment and Plan Assessment: 1. Cancer associated pain; patient has history of breast cancer and is status postmastectomy; completed chemotherapy and radiation therapy --Patient takes Hollywood 5 mg every 6 hours as needed at home; patient has been placed on morphine sulfate 4 mg IV every 4 hours as needed; continue with home dose of Hollywood -- Pending need for IV morphine, will plan to transition patient to oxycodone for better pain control -- Oncology has been consulted 2. Hypothyroidism; Synthroid 88 mcg daily 3. Anxiety; Xanax 0.5 mg 3 times daily 4. Asthma/COPD; not in exacerbation; continue with albuterol inhaler as needed DVT prophylaxis SCDs; CODE STATUS; full code
--- NOTE | 2024-01-03 17:26 | P.PN ---
Subjective Progress Note Date: 01/03/24 60-year-old female she has extensive history of breast cancer status post mastectomy, chemo and radiation therapy. She also has associated complication of left-sided pleural effusions. She states that she requires thoracentesis every 2 weeks. She complains of her left-sided cancer pain being significantly worse and not controlled with Eugene. Denies any fever. No coughing. Denies any shortness of breath. Patient is not sure if her pleural effusion had recurred because generally she feels better after thoracentesis. States that the pain is sharp. Nodule completed in ED reveals a sodium of 134, potassium 4.0, BUN/creatinine of 13/0.47 and blood glucose of 101, WBC 6.8, hemoglobin 13.7 platelet count of 154 01/03/2024 Patient is admitted with complaints of chest pain and associated SOB. Pt reports prescribed norco was helping control pain well, but over last 3 days, medication stopped working to control pain causing her to present for further evaluation. She states chest pain is located across sternum, left chest and left lateral chest wall, radiating to left neck, LUE and left upper back -This area was previously biopsied to be metastatic breast cancer -She is required 20 mg of IV morphine over the past 24 hours, equivalent to 60 mg of oral morphine -Eugene 5/325 taken this morning did provide moderate pain relief -- Patient reports nausea and vomiting with morphine; pain medications have been adjusted to Eugene 5 mg every 4 hours as needed; patient has been placed on bowel regimen -- Can be discharged in next 24 hours if able to tolerate oral pain medication Objective - Vital Signs Vital signs: Vital Signs Temp 98.2 F 01/03/24 13:05 Pulse 75 01/03/24 13:05 Resp 18 01/03/24 13:05 BP 129/71 01/03/24 13:05 Pulse Ox 97 01/03/24 13:05 FiO2 Intake & Output 01/02/24 01/03/24 01/03/24 18:59 06:59 18:59 Intake Total 320 Balance 320 Weight 42.638 kg Intake: Oral 320 Other: Voiding Method Toilet Toilet # Voids 1 2 - Exam General Impression: Alert and oriented x3, not in acute distress HEENT: Normocephalic atraumatic, extra-ocular movements intact, pupils equal and reactive to light bilaterally, mucous membranes moist. Cardiovascular: Heart regular rate and rhythm Chest: Able to complete full sentences, no retractions, no tachypnea, surgical site clean dry intact, bilateral breath sounds with no obvious wheezing. Sounds on the left sound slightly more coarse compared to the right Abdomen: abdomen soft, non-tender, non-distended, no organomegaly Musculoskeletal: Pulses present and equal in all extremities, no peripheral edema Motor: no focal deficits noted Neurological: CN II-XII grossly intact, no focal motor or sensory deficits noted Skin: Intact with no visualized rashes Psych: Normal affect and mood - Labs CBC & Chem 7: 12/31/23 23:35 12/31/23 23:35 Assessment and Plan Assessment: 1. Cancer associated pain; patient has history of breast cancer and is status postmastectomy; completed chemotherapy and radiation therapy --Patient takes Eugene 5 mg every 6 hours as needed at home; patient has been placed on morphine sulfate 4 mg IV every 4 hours as needed; continue with home dose of Eugene -- Pending need for IV morphine, will plan to transition patient to oxycodone f or better pain control -- Oncology has been consulted 2. Hypothyroidism; Synthroid 88 mcg daily 3. Anxiety; Xanax 0.5 mg 3 times daily 4. Asthma/COPD; not in exacerbation; continue with albuterol inhaler as needed DVT prophylaxis SCDs; CODE STATUS; full code
[2024-01-03] MEDS: ONDANSETRON 4 MG/2 ML VIAL IVP PRN (18:12)
[2024-01-04 08:48] LABS: Basophils # (A) 0.03 X 10*3/uL (0.00-0.10); Basophils % (A) 0.5 %; Eosinophils # (A) 0.06 X 10*3/uL (0.04-0.35); Eosinophils % (A) 1.1 %; HCT 39.6 % (37.2-46.3); HGB 13.3 g/dL (12.0-15.0); Lymphocytes # (A) 0.92 X 10*3/uL (0.90-5.00); Lymphocytes % (A) 16.3 %; MCH 33.9 pg (27.0-32.0); MCHC 33.6 g/dL (32.0-37.0); Mean Platelet Volume 9.8 FL (9.5-12.2); Monocytes # (A) 0.53 X 10*3/uL (0.20-1.00); Monocytes % (A) 9.4 %; NRBC Per 100 WBC 0 X 10*3/uL (0.00-0.01); Neutrophils # (A) 4.08 X 10*3/uL (1.80-7.70); Neutrophils % (A) 72.5 %; Platelet Count 201 X 10*3/uL (140-440); RBC 3.92 X 10*6/uL (4.10-5.20); RDW 14.4 % (11.5-14.5); WBC 5.63 X 10*3/uL (4.50-10.00)
[2024-01-04 08:55] LABS: Blood Urea Nitrogen 7.9 mg/dL (9.0-27.0); Calcium 7.5 mg/dL (8.7-10.3); Carbon Dioxide 27.6 mmol/L (21.6-31.8); Chloride 97 mmol/L (96-109); Glucose 86 mg/dL (70-110); Potassium 4.5 mmol/L (3.5-5.5); Sodium 138 mmol/L (135-145)
--- NOTE | 2024-01-04 12:38 | CT ---
Exam: CT Angiography of the Chest. Date: 01/04/2024. Comparison: None History: Shortness of breath with metastatic breast cancer. Technique: CT examination of the chest was performed following the intravenous administration of 60 m m of Isovue-300. CT dose lowering techniques were used, to include: automated exposure control, adjus tment for patient size, and/or use of iterative reconstruction. FINDINGS: CHEST WALL: Left-sided mastectomy is noted. Right-sided Mediport is present. Mediastinum and Gabriela: There is a 1.5 cm enlarged lymph node in the right hilar region. Pleural and Pericardial spaces: There are large bilateral pleural effusions with some loculation seen on the left. Upper Abdomen: The visualized upper abdomen is unremarkable. Cardiovascular: The thoracic aorta is normal in size without evidence of aneurysm or dissection. Pulmonary Artery: There are no filling defects in the pulmonary arteries. Lung Parenchyma and Airways: There are some scattered basilar opacities throughout the lungs bilatera lly which are likely atelectasis. There is significant compressive atelectasis involving the lower lo bes bilaterally and left upper lobe. Bones: No fracture or aggressive osseous lesion. IMPRESSION: 1. No evidence of pulmonary embolism. 2. No evidence of thoracic aortic aneurysm or dissection. 3. Large bilateral pleural effusions as above. 4. Slightly enlarged right hilar lymph node may represent a metastatic node.
[2024-01-04] MEDS ORDERED: IPRATROPIUM-ALBUTEROL 3 ML NEB INHALATION PRN (14:28)
--- NOTE | 2024-01-04 14:49 | P.PN ---
Subjective Progress Note Date: 01/04/24 In follow-up today patient reports improvement in pain. Did have headache last night. She is reporting worsening shortness of breath. Chest x-ray upon admission showed small bilateral pleural effusions. Will obtain CTA chest to rule out PE and further evaluate for progression of pleural effusions Objective - Vital Signs Vital signs: Vital Signs Temp 98.0 F 01/04/24 12:00 Pulse 73 01/04/24 12:00 Resp 16 01/04/24 12:00 BP 119/72 01/04/24 12:00 Pulse Ox 93 L 01/04/24 12:00 FiO2 Intake & Output 01/03/24 01/04/24 01/04/24 18:59 06:59 18:59 Intake Total 320 Balance 320 Intake: Oral 320 Other: Voiding Method Toilet # Voids 3 - Constitutional General appearance: Present: no acute distress, thin - EENT Eyes: Present: anicteric sclerae, EOMI ENT: Present: hearing grossly normal - Respiratory Respiratory: bilateral: diminished, rales - Cardiovascular Rhythm: regular Heart sounds: normal: S1, S2 - Integumentary Integumentary: Absent: cyanotic - Musculoskeletal Musculoskeletal: Present: strength equal bilaterally - Psychiatric Psychiatric: Present: A&O x's 3 - Labs CBC & Chem 7: 01/04/24 04:33 01/04/24 04:33 Labs: Abnormal Lab Results - Last 24 Hours (Table) 01/04/24 01/04/24 Range/Units 04:33 04:33 RBC 3.92 L (4.10-5.20) X 10*6/uL MCV 101.0 H (80.0-97.0) FL MCH 33.9 H (27.0-32.0) pg Anion Gap 13.40 H (4.00-12.00) mmol/L BUN 7.9 L (9.0-27.0) mg/dL Creatinine 0.5 L (0.6-1.5) mg/dL Calcium 7.5 L (8.7-10.3) mg/dL - Imaging and Cardiology CT scan - chest: report reviewed Assessment and Plan (1) Cancer associated pain Current Visit: Yes Status: Acute Priority: High Code(s): G89.3 - NEOPLASM RELATED PAIN (ACUTE) (CHRONIC) SNOMED Code(s): 64344983869921 (2) Metastasis from breast cancer Current Visit: Yes Status: Acute Priority: High Code(s): C79.9 - SECONDARY MALIGNANT NEOPLASM OF UNSPECIFIED SITE; C50.919 - MALIGNANT NEOPLASM OF UNSP SITE OF UNSPECIFIED FEMALE BREAST SNOMED Code(s): 082483773 (3) Pleural effusion Current Visit: Yes Status: Acute Priority: High Code(s): J90 - PLEURAL EFFUSION, NOT ELSEWHERE CLASSIFIED SNOMED Code(s): 68079070 Plan: Metastatic, triple negative breast cancer -Full history in HPI. Most recently been on treatment with xeloda and keytruda -Unfortunately, left chest wall biopsy on 11/18/23 revealed invasive mammary ductal carcinoma. PET/CT on 12/03/2023 revealed disease progression with uptake within mediastinal and hilar lymph nodes, uptake within the liver, new osseous metastases including thoracic vertebral bodies and right ilium and left anterior rib. Persistent intense uptake in the distal sigmoid colon. Pleural fluid cytology unfortunately has returned positive for the same. -She was advised that, given the extent of disease, it would not be considered curable. The objective of treatment going forward would be prolongation of life and palliation of symptoms.At this time the plan from primary medicine standpo int is to do intermittent paracenteses, and consider chest tube placement, if rate of accumulation is too rapid. The patient will be started on palliative chemotherapy with Eribulin and is scheduled for cycle 1 on 01/04/2024. Will reschedule treatment pending course of hospitalization Recurrent pleural effusions: -Had left-sided thoracentesis on 12/10 with 1200ml removed, cytology positive for metastatic ductal breast carcinoma. Repeat left-sided thoracentesis on 12/23 with 1000 mL removed Upon admission chest x-ray showed small bilateral pleural effusions. Due to progressing shortness of breath CTA chest ordered. Scan revealed no evidence for PE. Large bilateral pleural effusions and slightly enlarged right hilar lymph node. -Pulmonology consulted. Due to recurrent nature of pleural effusions patient would likely benefit from Pleurx drain Intractable pain: Presented with complaints of chest pain and associated SOB. Pt reports prescribed norco was helping control pain well, but over last 3 days, medication stopped working to control pain causing her to present for further evaluation. She states chest pain is located across sternum, left chest and left lateral chest wall, radiating to left neck, LUE and left upper back -This area was previously biopsied to be metastatic breast cancer -She is required 20 mg of IV morphine over the past 24 hours, equivalent to 60 mg of oral morphine -[place] 5/325 taken this morning did provide moderate pain relief -We discussed alternative pain regimens including increasing [place] to 10/325 every 4 hours as needed versus long-acting morphine 30 mg twice daily -She notes morphine causes nausea, which [place] does not -We will try [place] 10/325 mg every 4 hours as needed. Reporting pain is currently well controlled on current regimen, will continue to monitor -Zofran increased to 8 mg every 8 hours as needed -In addition to Colace 100 mg twice daily, MiraLAX daily will be given for bowel regimen while on pain medication -If pain can be controlled with oral pain medications, will defer on palliative radiation to this region and initiate cycle 1 of eribulin as soon as possible attests: I have seen and examined patient, performed H&P, developed impression and plan of care. Discussed with dictator. Agree with documentation, dictated as a scribe
--- NOTE | 2024-01-04 15:27 | XR ---
EXAMINATION TYPE: XR chest 1V portable DATE OF EXAM: 01/04/2024 COMPARISON: CTA chest on 01/04/2024. Chest x-ray on 01/01/2024. HISTORY: CHF. TECHNIQUE: Single frontal view of the chest is obtained. IMPRESSION: Cardiac silhouette is likely moderately enlarged, however secured by a large left pleural effusion. S mall right pleural effusion is also seen. There is patchy interstitial changes throughout the lungs b ilaterally which is likely related to mild to moderate pulmonary edema. The pleural effusion on the left extends over the left lung apex. This is likely not significantly ch anged from the CTA chest performed the same day. However has worsened since the prior chest x-ray of 01/01/2024.
--- NOTE | 2024-01-04 17:18 | P.CNPUL ---
History of Present Illness Consult date: 01/04/24 Requesting physician: Katherine Hernandez Reason for consult: dyspnea, pleural effusion, abnormal CXR/CT Chief complaint: Shortness of breath History of present illness: This is a very pleasant 68-year-old female patient with a known history of metastatic triple negative ductal carcinoma of the left breast and is status post left mastectomy back in March 2023. She did have positive lymph nodes as well. She had undergone subsequent chemotherapy and oral hormone treatment. Most recently she had been on Xeloda and Keytruda however in December 2023 a PET scan showed progression of disease with uptake in the mediastinum and left hilum compatible with metastatic disease. She had also developed a large left-sided pleural effusion and had undergone thoracentesis x 2 since then. Cytology is positive for metastatic ductal breast carcinoma. She presented to the emergency room here again on December 31, 2023 with worsening shortness of breath. We were consulted today 01/04/2024 for recurrent large left pleural effusion. He is seen today in consultation on the oncology floor. She is awake and alert. Afebrile. Hemodynamically stable. Maintaining O2 saturation in the 90s on 3 L/min per nasal cannula. White count 5.6. Hemoglobin 13.3. Platelets 201. Sodium 138. Potassium 4.5. Bicarb 28. BUN 8. Creatinine 0.5. Due to her discomfort and shortness of breath a third thoracentesis was performed with 950 mL of fluid removed. Not sent for fluid analysis or cytology. Plan will be to consult cardiothoracic surgery for eventual Pleurx catheter placement. Review of Systems REVIEW OF SYSTEMS: CONSTITUTIONAL: Denies any recent significant weight loss or weight gain. EYES: Denies change in vision. EARS, NOSE, MOUTH, THROAT: Denies headaches, denies sore throat. CARDIOVASCULAR: Positive for left chest wall pain, no palpitations or syncopal episodes. RESPIRATORY: Positive for shortness of breath, cough, congestion no hemoptysis. GASTROINTESTINAL: Denies change in appetite, denies abdominal pain GENITOURINARY: Denies hematuria, denies infections. MUSKULOSKELETAL: Denies pain, denies swelling. INTEGUMENTARY: Denies rash, denies eczema. NEUROLOGICAL: Denies recent memory loss, no recent seizure activity. PSYCHIATRIC: Denies anxiety, denies depression. HEMATOLOGIC/LYMPHATIC: Denies anemia, denies enlarged lymph nodes. Past Medical History Past Medical History: Cancer, COPD, Eye Disorder Additional Past Medical History / Comment(s): MENINGITIS, 19 YRS OLD ovarian cyst burst., NO MEDS FOR COPD. , FLOATER RIGHT EYE., LEFT BREAST CANCER - pt had a recent PET scan that showed at spot that they wanted to check out for mets. History of Any Multi-Drug Resistant Organisms: None Reported Past Surgical History: Hysterectomy, Tonsillectomy Additional Past Surgical History / Comment(s): RUPTURED GRAFIAN FOLLICLE, HARITHA CATARACTS with lens implants mastecotomy march 2023 Past Anesthesia/Blood Transfusion Reactions: No Reported Reaction Additional Past Anesthesia/Blood Transfusion Reaction / Comment(s): HX OF BLOOD TRANSFUSION-NO REACTION Past Psychological History: Anxiety Smoking Status: Former smoker Past Alcohol Use History: Occasional Additional Past Alcohol Use History / Comment(s): pt states smokes 3/4 pack per day, SMOKED LESS THAN 1PPD, SMOKED FOR 40 YEARS. Past Drug Use History: None Reported Additional Drug Use History / Comment(s): CBD COFFEE once per year- INSTRUCTED NOT TO USE 24 HRS PRIOR TO SURGERY. - Past Family History Father Family Medical History: Cancer Additional Family Medical History / Comment(s): PANCREATIC CANCER Brother(s) Family Medical History: Cancer, Thyroid Disorder Additional Family Medical History / Comment(s): STOMACH CANCER Medications and Allergies Home Medications Medication Instructions Recorded Confirmed Type Levothyroxine Sodium [Synthroid] 88 mcg PO DAILY 03/10/23 01/01/24 History ALPRAZolam [Xanax] 0.5 mg PO TID PRN 12/23/23 01/01/24 History Albuterol Sulfate [Ventolin HFA] 2 puff INHALATION RT-Q6H PRN 01/01/24 01/01/24 History HYDROcodone/APAP 5-325MG [[place] 1 tab PO Q6HR PRN 01/01/24 01/01/24 History 5-325] Allergies Allergy/AdvReac Type Severity Reaction Status Date / Time No Known Allergies Allergy Verified 01/01/24 07:43 Physical Exam Vitals: Vital Signs Temp Pulse Resp BP Pulse Ox 01/04/24 12:00 98.0 F 73 16 119/72 93 L 01/04/24 07:30 98.4 F 75 16 124/71 95 01/04/24 00:55 97.3 F L 64 17 130/77 96 01/03/24 19:41 97.9 F 65 17 120/63 95 Intake and Output 01/04/24 01/04/24 01/04/24 06:59 14:59 22:59 Other: # Voids 3 GENERAL EXAM: Alert, pleasant, frail, thin 68-year-old female, on 2 L nasal cannula, fairly, comfortable in no apparent distress. HEAD: Normocephalic. EYES: Normal reaction of pupils, equal size. NOSE: Clear with pink turbinates. THROAT: No erythema or exudates. NECK: No masses, no JVD. CHEST: No chest wall deformity. LUNGS: Equal air entry with diminished breath sounds in the left base, dullness. CVS: S1 and S2 normal with no audible murmur, regular rhythm. ABDOMEN: No hepatosplenomegaly, normal bowel sounds, no guarding or rigidity. SPINE: No scoliosis or deformity SKIN: No rashes CENTRAL NERVOUS SYSTEM: No focal deficits, tone is normal in all 4 extremities. EXTREMITIES: There is no peripheral edema. No clubbing, no cyanosis. Peripheral pulses are intact. Results - Laboratory Findings CBC and BMP: 01/04/24 04:33 01/04/24 04:33 PT/INR, D-dimer PT 10.2 sec (10.0-12.5) 01/01/24 10:34 INR 0.9 (<1.2) 01/01/24 10:34 Abnormal lab findings: Abnormal Labs 12/31/23 12/31/23 01/04/24 23:35 23:35 04:33 RBC 3.92 L MCV 101.0 H 101.0 H MCH 33.9 H Lymphocytes # 0.8 L Sodium 134 L Anion Gap BUN Creatinine 0.47 L Glucose 101 H Calcium Total Protein 5.7 L Albumin 3.4 L 01/04/24 04:33 RBC MCV MCH Lymphocytes # Sodium Anion Gap 13.40 H BUN 7.9 L Creatinine 0.5 L Glucose Calcium 7.5 L Total Protein Albumin - Diagnostic Findings Chest x-ray: image reviewed CT scan - chest: image reviewed Assessment and Plan Assessment: Acute shortness of breath secondary to recurrent moderate size to large size left-sided pleural effusion which could be potentially metastatic/malignant in nature. As such, the patient underwent therapeutic thoracentesis x 2. Cytology positive for metastatic disease Acute hypoxic respiratory failure secondary to above currently on 2 L nasal cannula Left-sided pleural effusion status post drainage of 950 L of pleural fluid from the left lung today January 04, 2024. Previous fluid is positive for metastatic ductal breast carcinoma and fluid was not sent again Metastatic breast cancer post left mastectomy and chemotherapy and hormonal treatment. The most recent PET/CT that was done in 12/04/2023 showed metastatic disease with pulmonary, liver and skeletal involvement COPD Chronic and ongoing tobacco dependence History of meningitis History of an ovarian cyst Plan: The patient was seen and evaluated CT angiogram, chest x-ray, labs and medications reviewed A third thoracentesis was performed today on the left No fluid or cytology sent this time Consult CT services for Pleurx catheter placement Titrate the FiO2 as tolerated We will continue to follow and make further recommendations based on her clinical status I have personally seen and examined the patient, performed the documentation and the assessment and plan as written. Number of minutes spent on the visit: 20.
--- NOTE | 2024-01-04 17:24 | XR ---
EXAMINATION TYPE: XR chest 1V portable DATE OF EXAM: 01/04/2024 5:15 PM CLINICAL INDICATION:Female, 68 years old with history of left thoracentesis; COMPARISON: Chest radiographs from 01/04/2024. TECHNIQUE: XR chest 1V portable Frontal view of the chest. FINDINGS: Lungs/Pleura: No evidence of focal consolidation or pneumothorax. Blunting of the costophrenic angles is present. Pulmonary vascularity: Pulmonary vascular congestion. Heart/mediastinum: Cardiomediastinal silhouette is enlarged and stable. Musculoskeletal: No acute osseous pathology. Right chest wall [id number] tip terminating in the superior vena cava. Left axillary clips present . IMPRESSION: Decrease in left pleural effusion without evidence of pneumothorax. Cardiomegaly, pulmonary vascular congestion and bilateral pleural effusions. Correlate with BNP for c ongestive heart failure.
[2024-01-04] MEDS: IPRATROPIUM-ALBUTEROL 3 ML NEB INHALATION SCH (19:56)
[2024-01-04] MEDS: SYMBICORT 160-4.5 MCG INHALER INHALATION SCH (19:56)
[2024-01-04] MEDS: HEPARIN SODIUM,PORCINE 5,000 UNIT/ML 1 ML VIAL SQ SCH (20:11)
--- NOTE | 2024-01-04 23:55 | OP ---
OPERATIVE REPORT DATE OF SERVICE : PROCEDURE PERFORMED: Left-sided thoracentesis. PREOPERATIVE DIAGNOSIS: Left pleural effusion. POSTOPERATIVE DIAGNOSIS: Left pleural effusion. ANESTHESIA USED: 2 mL of 1% lidocaine. DESCRIPTION OF PROCEDURE: The patient was placed in a sitting upright position, the area below the left scapula was prepared in a sterile fashion. Drapes were applied. At the level of the 8th intercostal space and tip of the scapula, the area was locally anesthetized with lidocaine. Then, a 26-gauge needle inserted at the same side and advanced into the pleural space until the fluid was localized with the needle. Then a small tiny incision was made, and a thoracentesis catheter and needle used, advanced at the same site into the pleural space and as the fluid was obtained, the catheter was advanced over the needle into the pleural space. Freely flowing fluid was removed, roughly the 950 mL of straw-colored fluid was removed from the right pleural space. Fluid was not sent for any diagnostic studies since previous diagnosis has been made on the fluid. The procedure was well tolerated, no immediate complications, chest x-ray was ordered postoperatively, pending at the time of dictation. MMODL / IJN: [id number] /
--- NOTE | 2024-01-05 07:23 | PN ---
PROGRESS NOTE DATE OF SERVICE: 01/04/2024 SUBJECTIVE: This is a 68-year-old woman, who was admitted with cancer associated pain, also had some shortness of breath. The patient also had some hypothyroidism. Chest x-ray showed some pleural effusion, left more than the right. The patient also had a history of breast cancer. The CT angio was negative for pulmonary embolism. PAST MEDICAL HISTORY: Reviewed. REVIEW OF SYSTEMS: Fourteen-point review of systems negative except as mentioned earlier. MEDICATIONS: Reviewed include Colace, rest of medications noted. PHYSICAL EXAMINATION: VITAL SIGNS: Pulse is 73, blood pressure 119/70, respirations 16. HEENT: Conjunctivae normal. NECK: No jugular venous distention. CARDIOVASCULAR: S1, S2. RESPIRATION: Diminished at the bases, few scattered rhonchi and crackles. ABDOMEN: Soft, nontender. NERVOUS SYSTEM: No focal deficit. LABORATORY DATA: Noted. ASSESSMENT: 1. Cancer associated pain with breast cancer with possible mastectomy. 2. Bilateral pleural effusions, left more than right, possibly malignancy associated. 3. Hypothyroidism. 4. Anxiety. 5. Asthma. 6. Chronic obstructive pulmonary disease acute exacerbation. RECOMMENDATIONS AND DISCUSSION: I recommend to continue current medications, continue with the monitoring, symptomatic treatment. Otherwise, recommend bronchodilators and Pulmonary consultation. Guarded prognosis. Further recommendations to follow. MMODL / IJN: [id number] /
[2024-01-05 11:27] LABS: Basophils # (A) 0.03 X 10*3/uL (0.00-0.10); Basophils % (A) 0.5 %; Eosinophils # (A) 0.08 X 10*3/uL (0.04-0.35); Eosinophils % (A) 1.5 %; HCT 41.4 % (37.2-46.3); HGB 13.9 g/dL (12.0-15.0); Lymphocytes % (A) 18.3 %; MCH 33.3 pg (27.0-32.0); MCHC 33.6 g/dL (32.0-37.0); MCV 99.3 FL (80.0-97.0); Mean Platelet Volume 9.5 FL (9.5-12.2); Monocytes # (A) 0.42 X 10*3/uL (0.20-1.00); Monocytes % (A) 7.7 %; NRBC Per 100 WBC 0 X 10*3/uL (0.00-0.01); Neutrophils # (A) 3.92 X 10*3/uL (1.80-7.70); Neutrophils % (A) 71.6 %; Platelet Count 197 X 10*3/uL (140-440); RBC 4.17 X 10*6/uL (4.10-5.20); RDW 14.5 % (11.5-14.5); WBC 5.47 X 10*3/uL (4.50-10.00)
[2024-01-05 11:41] LABS: Blood Urea Nitrogen 8.6 mg/dL (9.0-27.0); Calcium 8.7 mg/dL (8.7-10.3); Carbon Dioxide 29.3 mmol/L (21.6-31.8); Chloride 99 mmol/L (96-109); Glucose 89 mg/dL (70-110); Potassium 4.7 mmol/L (3.5-5.5); Sodium 135 mmol/L (135-145)
--- NOTE | 2024-01-05 12:28 | PN ---
PROGRESS NOTE DATE OF SERVICE: 01/05/2024 SUBJECTIVE: This is a 68-year-old woman who was admitted with cancer, pain with breast cancer, also had bilateral pleural effusion. Patient underwent left thoracocentesis by Dr. Palomo, about 900 mL straw-colored fluid was aspirated. The patient still has some shortness of breath. The patient is closely monitored at this time. PAST MEDICAL HISTORY: Reviewed. REVIEW OF SYSTEMS: A 14-point review of systems negative as mentioned earlier. CURRENT MEDICATIONS: Reviewed include DuoNeb. PHYSICAL EXAMINATION: VITAL SIGNS: Pulse is 88, blood pressure 116/66, respirations 18. CHEST: Few scattered rhonchi and crackles. ABDOMEN: Soft. NERVOUS SYSTEM: No focal deficits. LABORATORY DATA: CBC within normal limits. ASSESSMENT: 1. Bilateral pleural effusion, left more than the right with possible malignancy associated with significant shortness of breath. 2. Possible COPD acute exacerbation. 3. Cancer surgery, pain with breast cancer with possible mastectomy. 4. Hypothyroidism. 5. Anxiety. 6. History of asthma. RECOMMENDATIONS: Recommended to continue current management, continue symptomatic treatment, otherwise I would recommend to continue with bronchodilators. Continue with incentive spirometry. Symptomatic treatment. DVT prophylaxis. Dr. Ribera's input appreciated. Guarded prognosis. Further recommendations to follow. Increase ambulation. MMODL / IJN: [id number] /
[2024-01-05 13:17] VITALS: RESP 16
--- NOTE | 2024-01-05 13:33 | P.PN ---
Subjective Progress Note Date: 01/05/24 This is a very pleasant 68-year-old female patient with a known history of metastatic triple negative ductal carcinoma of the left breast and is status post left mastectomy back in March 2023. She did have positive lymph nodes as well. She had undergone subsequent chemotherapy and oral hormone treatment. Most recently she had been on Xeloda and Keytruda however in December 2023 a PET scan showed progression of disease with uptake in the mediastinum and left hilum compatible with metastatic disease. She had also developed a large left-sided pleural effusion and had undergone thoracentesis x 2 since then. Cytology is positive for metastatic ductal breast carcinoma. She presented to the emergency room here again on December 31, 2023 with worsening shortness of breath. We were consulted today 01/04/2024 for recurrent large left pleural effusion. He is seen today in consultation on the oncology floor. She is awake and alert. Afebrile. Hemodynamically stable. Maintaining O2 saturation in the 90s on 3 L/min per nasal cannula. White count 5.6. Hemoglobin 13.3. Platelets 201. Sodium 138. Potassium 4.5. Bicarb 28. BUN 8. Creatinine 0.5. Due to her discomfort and shortness of breath a third thoracentesis was performed with 950 mL of fluid removed. Not sent for fluid analysis or cytology. Plan will be to consult cardiothoracic surgery for eventual Pleurx catheter placement. The patient is seen today January 05, 2024 in follow-up on the regular medical floor. She is resting comfortably in bed. Awake and alert in no acute distress. Maintaining good O2 saturations in the 90s on 2 L/min per nasal cannula. Follow-up chest x-ray of the left pleural effusion postthoracentesis revealed increased aeration. There remains some cardiomegaly and pulmonary vascular congestion. White count 5.4. Hemoglobin 13.9. Platelets 197. Sodium 135. Potassium 4.7. Bicarb 29. BUN 9. Creatinine 0.4. Glucose 89. She remains on heparin for DVT prophylaxis. Continued on bronchodilators. Objective - Vital Signs Vital signs: Vital Signs Temp 97.8 F 01/05/24 12:40 Pulse 79 01/05/24 12:40 Resp 16 01/05/24 12:40 BP 117/71 01/05/24 12:40 Pulse Ox 90 L 01/05/24 12:40 FiO2 Intake & Output 03/04/24 03/05/24 03/05/24 18:59 06:59 18:59 Intake Total 600 Balance 600 Weight 42.638 kg Intake: Oral 600 Other: Voiding Method Toilet # Voids 2 1 - Exam GENERAL EXAM: Alert, thin 68-year-old female, on 2 L nasal cannula, comfortable in no apparent distress. HEAD: Normocephalic. EYES: Normal reaction of pupils, equal size. NOSE: Clear with pink turbinates. THROAT: No erythema or exudates. NECK: No masses, no JVD. CHEST: No chest wall deformity. LUNGS: Equal air entry with diminished breath sounds in the left base, dullness. CVS: S1 and S2 normal with no audible murmur, regular rhythm. ABDOMEN: No hepatosplenomegaly, normal bowel sounds, no guarding or rigidity. SPINE: No scoliosis or deformity SKIN: No rashes CENTRAL NERVOUS SYSTEM: No focal deficits, tone is normal in all 4 extremities. EXTREMITIES: There is no peripheral edema. No clubbing, no cyanosis. Peripheral pulses are intact. - Labs CBC & Chem 7: 01/05/24 06:49 01/05/24 06:49 Labs: Abnormal Lab Results - Last 24 Hours (Table) 01/05/24 01/05/24 Range/Units 06:49 06:49 MCV 99.3 H (80.0-97.0) FL MCH 33.3 H (27.0-32.0) pg BUN 8.6 L (9.0-27.0) mg/dL Creatinine 0.4 L (0.6-1.5) mg/dL BUN/Creatinine Ratio 21.50 H (12.00-20.00) Ratio Assessment and Plan Assessment: Acute shortness of breath secondary to recurrent moderate size to large size left-sided pleural effusion which could be potentially metastatic/malignant in nature. As such, the patient underwent therapeutic thoracentesis x 2. Cytology positive for metastatic disease Acute hypoxic respiratory failure secondary to above currently on 2 L nasal cannula Left-sided pleural effusion status post drainage of 950 L of pleural fluid from the left lung January 04, 2024. Previous fluid is positive for metastatic ductal breast carcinoma and fluid was not sent again Metastatic breast cancer post left mastectomy and chemotherapy and hormonal treatment. The most recent PET/CT that was done in 12/04/2023 showed metastatic disease with pulmonary, liver and skeletal involvement COPD Chronic and ongoing tobacco dependence History of meningitis History of an ovarian cyst Plan: The patient was seen and evaluated Chest x-ray, labs and medications reviewed Plan is for outpatient Pleurx catheter placement on 01/11/2024 She is cleared for discharge from the pulmonary standpoint To follow closely with medical oncology regarding any potential treatment options I have personally seen and examined the patient, performed the documentation and the assessment and plan as written. Number of minutes spent on the visit: 10.
--- NOTE | 2024-01-05 15:08 | P.PN ---
Subjective Progress Note Date: 01/05/24 In follow-up today patient reports significant improvement in breathing and pain s/p thora. CTA chest revealed no evidence for PE. With large bilateral pleural effusions noted. Left-sided thoracentesis performed with 950 cc removed. Consult placed to cardiothoracic surgery for evaluation for Pleurx placement due to recurrent nature pleural effusions Objective - Vital Signs Vital signs: Vital Signs Temp 97.8 F 01/05/24 07:16 Pulse 72 01/05/24 11:36 Resp 18 01/05/24 07:16 BP 116/66 01/05/24 07:16 Pulse Ox 94 L 01/05/24 07:16 FiO2 Intake & Output 01/04/24 01/05/24 01/05/24 18:59 06:59 18:59 Intake Total 600 Balance 600 Weight 42.638 kg Intake: Oral 600 Other: Voiding Method Toilet # Voids 2 1 - Constitutional General appearance: Present: average body habitus, no acute distress - EENT Eyes: Present: anicteric sclerae, EOMI ENT: Present: hearing grossly normal - Respiratory Details: breathing even and unlabored - Cardiovascular Details: well-perfused - Integumentary Integumentary: Absent: cyanotic - Neurologic Neurologic: Present: CNII-XII intact - Musculoskeletal Musculoskeletal: Present: strength equal bilaterally - Psychiatric Psychiatric: Present: A&O x's 3 - Labs CBC & Chem 7: 01/05/24 06:49 01/05/24 06:49 Labs: Abnormal Lab Results - Last 24 Hours (Table) 01/05/24 01/05/24 Range/Units 06:49 06:49 MCV 99.3 H (80.0-97.0) FL MCH 33.3 H (27.0-32.0) pg BUN 8.6 L (9.0-27.0) mg/dL Creatinine 0.4 L (0.6-1.5) mg/dL BUN/Creatinine Ratio 21.50 H (12.00-20.00) Ratio - Imaging and Cardiology Chest x-ray: report reviewed CT scan - chest: report reviewed Assessment and Plan (1) Cancer associated pain Current Visit: Yes Status: Acute Priority: High Code(s): G89.3 - NEOPLASM RELATED PAIN (ACUTE) (CHRONIC) SNOMED Code(s): 97110697324387 (2) Metastasis from breast cancer Current Visit: Yes Status: Acute Priority: High Code(s): C79.9 - SECONDARY MALIGNANT NEOPLASM OF UNSPECIFIED SITE; C50.919 - MALIGNANT NEOPLASM OF UNSP SITE OF UNSPECIFIED FEMALE BREAST SNOMED Code(s): 912966626 (3) Pleural effusion Current Visit: Yes Status: Acute Priority: High Code(s): J90 - PLEURAL EFFUSION, NOT ELSEWHERE CLASSIFIED SNOMED Code(s): 42554160 Plan: Metastatic, triple negative breast cancer -Full history in HPI. Most recently been on treatment with xeloda and keytruda -Unfortunately, left chest wall biopsy on 11/18/23 revealed invasive mammary ductal carcinoma. PET/CT on 12/03/2023 revealed disease progression with uptake within mediastinal and hilar lymph nodes, uptake within the liver, new osseous metastases including thoracic vertebral bodies and right ilium and left anterior rib. Persistent intense uptake in the distal sigmoid colon. Pleural fluid cytology unfortunately has returned positive for the same. -She was advised that, given the extent of disease, it would not be considered curable. The objective of treatment going forward would be prolongation of life and palliation of symptoms.At this time the plan from primary medicine standpoint is to do intermittent paracenteses, and consider chest tube placement, if rate of accumulation is too rapid. The patient will be started on palliative chemotherapy with Eribulin and is scheduled for cycle 1 on 01/04/2024. Will reschedule treatment pending course of hospitalization Recurrent pleural effusions: -Had left-sided thoracentesis on 12/10 with 1200ml removed, cytology positive for metastatic ductal breast carcinoma. Repeat left-sided thoracentesis on 12/23 with 1000 mL removed Upon admission chest x-ray showed small bilateral pleural effusions. Due to progressing shortness of breath CTA chest ordered. Scan revealed no evidence for PE. Large bilateral pleural effusions and slightly enlarged right hilar lymph node. -Pulmonology consulted. S/p left-sided thoracentesis performed with 950 cc removed. Consult placed to cardiothoracic surgery for evaluation for Pleurx placement due to recurrent nature pleural effusions. Scheduled for pleurx placement on 01/10 Intractable pain: Presented with complaints of chest pain and associated SOB. Pt reports pre scribed norco was helping control pain well, but over last 3 days, medication stopped working to control pain causing her to present for further evaluation. She states chest pain is located across sternum, left chest and left lateral chest wall, radiating to left neck, LUE and left upper back -This area was previously biopsied to be metastatic breast cancer -She required 20 mg of IV morphine over the past 24 hours, equivalent to 60 mg of oral morphine -[place] 5/325 was not providing adequate pain relief -We discussed alternative pain regimens including increasing [place] to 10/325 every 4 hours as needed versus long-acting morphine 30 mg twice daily -She notes morphine causes nausea, which [place] does not -We will try [place] 10/325 mg every 4 hours as needed. Reporting pain is currently well controlled on current regimen, will continue to monitor -Zofran increased to 8 mg every 8 hours as needed -In addition to Colace 100 mg twice daily, MiraLAX daily will be given for bowel regimen while on pain medication -If pain can be controlled with oral pain medications, will defer on palliative radiation to this region and initiate cycle 1 of eribulin as soon as possible Spoke with IM team, will hope for d/c in the next 1-2 days pending patients oxygen requirements and oxygen levels. Will try to start chemo later this week upon discharge
[2024-01-05] MEDS: PANTOPRAZOLE 40 MG/10 ML VIAL IVP SCH (21:05)
--- NOTE | 2024-01-06 08:18 | P.GSCN ---
History of Present Illness Consult date: 01/05/24 Reason for Consult: Recurrent left-sided malignant pleural effusion, evaluation for Pleurx catheter placement Requesting physician: Blanca Moya History of present illness: This is a 68-year-old female patient who follows on an outpatient basis for primary care service with Dr. Roney Lema. She has a past medical history significant for metastatic triple negative ductal carcinoma of the left breast, status post chemotherapy and left mastectomy in March 2023, recurrent left-sided malignant pleural effusions, status post 2 previous thoracentesis, she also has a past medical history significant for COPD, anxiety and chronic ongoing nicotine dependence. She presented to the emergency department here at [facility] on December 31, 2023 with complaints of progressive dyspnea and pain to her left chest. She denies any recent fever, chills, nausea, vomiting, significant weight loss or weight gain, headache, constipation, diarrhea, hemoptysis, hematemesis, memory loss, presyncope or syncope. On admission the patient underwent a chest x-ray which demonstrated pulmonary edema, elevated left hemidiaphragm, small bilateral effusions, and consolidation in the left midlung. A twelve-lead EKG was completed which showed normal sinus rhythm with a heart rate of 93 bpm. For further evaluation a CT angiography of the chest was completed on January 04, 2024 which demonstrated no evidence for pulmonary embolism, no evidence of thoracic aortic aneurysm or dissection, large bilateral pleural effusions, and slightly enlarged right hilar lymph node, representing possible metastatic node. Due to the findings of recurrent left- sided pleural effusion pulmonary medicine was consulted and she underwent a left-sided thoracentesis with 950 mL of straw-colored fluid drained. Subsequently, due to her recurrent left-sided malignant pleural effusions a consult was placed to Dr. Tony Lazar from cardiothoracic surgery for further evaluation and treatment recommendations including placement of left-sided Pleurx catheter. Review of Systems A 14 point review of systems was completed and was negative except as mentioned in the HPI. Past Medical History Past Medical History: Cancer, COPD, Eye Disorder Additional Past Medical History / Comment(s): MENINGITIS, 19 YRS OLD ovarian cyst burst., NO MEDS FOR COPD. , FLOATER RIGHT EYE., LEFT BREAST CANCER - pt had a recent PET scan that showed at spot that they wanted to check out for mets. History of Any Multi-Drug Resistant Organisms: None Reported Past Surgical History: Hysterectomy, Tonsillectomy Additional Past Surgical History / Comment(s): RUPTURED GRAFIAN FOLLICLE, HARITHA CATARACTS with lens implants mastecotomy march 2023 Past Anesthesia/Blood Transfusion Reactions: No Reported Reaction Additional Past Anesthesia/Blood Transfusion Reaction / Comm: HX OF BLOOD TRANSFUSION-NO REACTION Past Psychological History: Anxiety Smoking Status: Former smoker Past Alcohol Use History: Occasional Additional Past Alcohol Use History / Comment(s): pt states smokes 3/4 pack per day, SMOKED LESS THAN 1PPD, SMOKED FOR 40 YEARS. Past Drug Use History: None Reported Additional Drug Use History / Comment(s): CBD COFFEE once per year- INSTRUCTED NOT TO USE 24 HRS PRIOR TO SURGERY. - Past Family History Father Family Medical History: Cancer Additional Family Medical History / Comment(s): PANCREATIC CANCER Brother(s) Family Medical History: Cancer, Thyroid Disorder Additional Family Medical History / Comment(s): STOMACH CANCER Medications and Allergies Home Medications Medication Instructions Recorded Confirmed Type Levothyroxine Sodium [Synthroid] 88 mcg PO DAILY 03/10/23 01/08/24 History ALPRAZolam [Xanax] 0.5 mg PO TID PRN 12/23/23 01/08/24 History Albuterol Sulfate [Ventolin HFA] 2 puff INHALATION RT-Q6H PRN 01/01/24 01/08/24 History Docusate [Colace] 100 mg PO BID cap 01/06/24 01/08/24 Rx polyethylene glycoL 3350 [Miralax] 17 gm PO DAILY PRN packet 01/06/24 01/08/24 Rx HYDROcodone/APAP 10-325MG [[place] 1 tab PO Q6HR PRN 01/08/24 01/08/24 History 10-325] Allergies Allergy/AdvReac Type Severity Reaction Status Date / Time No Known Allergies Allergy Verified 01/08/24 14:17 Surgical - Exam Vital Signs Temp Pulse Resp BP Pulse Ox 98.0 F 88 22 115/79 94 L 12/31/23 23:05 12/31/23 23:05 12/31/23 23:05 12/31/23 23:05 12/31/23 23:05 - General no distress, no pain, cachectic, chronically ill - Eyes PERRL, normal ocular movement, no pale, no icteric - ENT normal pinna, normal nares, normal mucosa, no hearing loss, no congestion - Neck Neck is supple, no lymphadenopathy. no masses, no bruits, trachea midline, no venous distension - Respiratory Lung sounds essentially clear throughout, diminished to her bilateral bases left greater than right. No wheezes, rhonchi or crackles. Respirations are symmetrical and nonlabored. - Cardiovascular Regular rhythm and rate. S1 and S2 present, negative for S3, gallop or murmur. - Abdomen Abdomen is soft, nontender and nondistended. Active bowel sounds present all 4 abdominal quadrants. No guarding rigidity. No organomegaly appreciated. - Genitourinary Deferred - Rectum Deferred - Integumentary Skin is warm and dry. No clubbing or cyanosis is present. no rash, no growths, no abnormal pigmentation - Neurologic Cranial nerves II through XII intact. No focal deficits. - Musculoskeletal Moves all 4 extremities with equal strength bilateral. - Psychiatric oriented to time, oriented to person, oriented to place, speech is normal, memory intact Results - Labs 01/06/24 05:52 01/06/24 05:52 Abnormal Lab Results - Last 24 Hours (Table) 01/05/24 01/05/24 Range/Units 06:49 06:49 MCV 99.3 H (80.0-97.0) FL MCH 33.3 H (27.0-32.0) pg BUN 8.6 L (9.0-27.0) mg/dL Creatinine 0.4 L (0.6-1.5) mg/dL BUN/Creatinine Ratio 21.50 H (12.00-20.00) Ratio Diabetes panel 01/05/24 Range/Units 06:49 Sodium 135 (135-145) mmol/L Potassium 4.7 (3.5-5.5) mmol/L Chloride 99 (96-109) mmol/L Carbon Dioxide 29.3 (21.6-31.8) mmol/L BUN 8.6 L (9.0-27.0) mg/dL Creatinine 0.4 L (0.6-1.5) mg/dL Glucose 89 (70-110) mg/dL Calcium 8.7 (8.7-10.3) mg/dL Calcium panel 01/05/24 Range/Units 06:49 Calcium 8.7 (8.7-10.3) mg/dL Pituitary panel 01/05/24 Range/Units 06:49 Sodium 135 (135-145) mmol/L Potassium 4.7 (3.5-5.5) mmol/L Chloride 99 (96-109) mmol/L Carbon Dioxide 29.3 (21.6-31.8) mmol/L BUN 8.6 L (9.0-27.0) mg/dL Creatinine 0.4 L (0.6-1.5) mg/dL Glucose 89 (70-110) mg/dL Calcium 8.7 (8.7-10.3) mg/dL Adrenal panel 01/05/24 Range/Units 06:49 Sodium 135 (135-145) mmol/L Potassium 4.7 (3.5-5.5) mmol/L Chloride 99 (96-109) mmol/L Carbon Dioxide 29.3 (21.6-31.8) mmol/L BUN 8.6 L (9.0-27.0) mg/dL Creatinine 0.4 L (0.6-1.5) mg/dL Glucose 89 (70-110) mg/dL Calcium 8.7 (8.7-10.3) mg/dL - Imaging Chest x-ray: report reviewed, image reviewed CT scan - chest: report reviewed, image reviewed Assessment and Plan Assessment: Recurrent moderate to large size left malignant pleural effusion, status post 3 left-sided thoracentesis Shortness of breath, likely secondary to above Acute hypoxic respiratory failure secondary to above Metastatic breast cancer, status post chemotherapy and left-sided mastectomy COPD Chronic ongoing tobacco dependence History of ovarian cyst History of meningitis Anxiety Plan: The patient was seen and examined in conjunction with Dr. Tony Lazar at her bedside on the fifth floor medical oncology unit. The patient reports she is ge tting a left-sided thoracentesis around every [address] Lazar discussed with the patient the findings on her chest x-ray and CT scan results of her chest, treatment options discussed with the patient. Dr. Lazar discussed placement of left Pleurx catheter, risks and benefits of the procedure were discussed with the patient and knowing and understanding the risks the patient wishes to proceed with Pleurx catheter placement. She will be scheduled for left-sided Pleurx catheter placement on January 11, 2024 to be performed by Dr. Tony Lazar. Per the cardiothoracic surgery standpoint the patient can be discharged home when okay with primary care service and other consultants and be brought back to the hospital as an outpatient for elective Pleurx catheter placement. Medical management and other comorbidities per primary care service recommendations. We will continue to follow the patient on an as-needed basis. Thank you Dr. Moya for this consult and we look forward to working with you in the care of this patient. I have personally seen and examined the patient, performed the documentation and the assessment and plan as written. Number of minutes spent on the visit: 30. MAR Vasquez Attending Addendum: Pt seend and evaluated with SECURITY SCREENER above. Agree with their asse ssment and plan. I spent 35 minutes reviewing and data and discussing the plan of care with the team and patient. Time with Patient: Greater than 30
[2024-01-06 08:29] LABS: Basophils # (A) 0.05 X 10*3/uL (0.00-0.10); Basophils % (A) 1.2 %; Eosinophils # (A) 0.11 X 10*3/uL (0.04-0.35); Eosinophils % (A) 2.6 %; HCT 43.4 % (37.2-46.3); HGB 14.5 g/dL (12.0-15.0); Lymphocytes # (A) 1.17 X 10*3/uL (0.90-5.00); Lymphocytes % (A) 27.5 %; MCH 33.9 pg (27.0-32.0); MCHC 33.4 g/dL (32.0-37.0); MCV 101.4 FL (80.0-97.0); Mean Platelet Volume 9.9 FL (9.5-12.2); Monocytes # (A) 0.45 X 10*3/uL (0.20-1.00); Monocytes % (A) 10.6 %; NRBC Per 100 WBC 0 X 10*3/uL (0.00-0.01); Neutrophils # (A) 2.44 X 10*3/uL (1.80-7.70); Neutrophils % (A) 57.4 %; Platelet Count 203 X 10*3/uL (140-440); RBC 4.28 X 10*6/uL (4.10-5.20); RDW 14.6 % (11.5-14.5); WBC 4.25 X 10*3/uL (4.50-10.00)
[2024-01-06 08:39] LABS: Blood Urea Nitrogen 7.7 mg/dL (9.0-27.0); Carbon Dioxide 29.6 mmol/L (21.6-31.8); Chloride 97 mmol/L (96-109); Glucose 88 mg/dL (70-110); Potassium 5.1 mmol/L (3.5-5.5); Sodium 136 mmol/L (135-145)
[2024-01-06 08:40] LABS: Calcium 9.1 mg/dL (8.7-10.3)
--- NOTE | 2024-01-06 10:56 | P.PN ---
Progress Note - Text Progress Note Date: 01/06/24 Patient will require nebulizer on discharge for continued DuoNeb treatments 4 times daily and as needed to manage COPD. Prescription provided to social work for discharge planning.
--- NOTE | 2024-01-06 12:24 | P.PN ---
Subjective Progress Note Date: 01/06/24 In follow-up today patient reports significant improvement in breathing and pain s/p thora. Left-sided thoracentesis performed with 950 cc removed. Consult placed to cardiothoracic surgery for evaluation for Pleurx placement. Scheduled for outpt placement next week. Plan for discharge today Objective - Vital Signs Vital signs: Vital Signs Temp 98.5 F 01/06/24 07:16 Pulse 80 01/06/24 12:02 Resp 16 01/06/24 07:16 BP 139/88 01/06/24 07:16 Pulse Ox 95 01/06/24 07:16 FiO2 Intake & Output 01/05/24 01/06/24 01/06/24 18:59 06:59 18:59 Intake Total 590 790 Balance 590 790 Weight 42.638 kg Intake: Oral 590 790 Other: Voiding Method Toilet # Voids 1 2 - Constitutional General appearance: Present: no acute distress, thin - EENT Eyes: Present: anicteric sclerae, EOMI ENT: Present: hearing grossly normal - Respiratory Details: breathing is even and nonlabored - Cardiovascular Details: skin warm and dry - Integumentary Integumentary: Absent: cyanotic - Neurologic Neurologic: Present: CNII-XII intact - Musculoskeletal Musculoskeletal: Present: strength equal bilaterally - Psychiatric Psychiatric: Present: A&O x's 3 - Labs CBC & Chem 7: 01/06/24 05:52 01/06/24 05:52 Labs: Abnormal Lab Results - Last 24 Hours (Table) 01/06/24 01/06/24 Range/Units 05:52 05:52 WBC 4.25 L (4.50-10.00) X 10*3/uL MCV 101.4 H (80.0-97.0) FL MCH 33.9 H (27.0-32.0) pg RDW 14.6 H (11.5-14.5) % BUN 7.7 L (9.0-27.0) mg/dL Creatinine 0.5 L (0.6-1.5) mg/dL Assessment and Plan (1) Cancer associated pain Current Visit: Yes Status: Acute Priority: High Code(s): G89.3 - NEOPLASM RELATED PAIN (ACUTE) (CHRONIC) SNOMED Code(s): 44455604203820 (2) Metastasis from breast cancer Current Visit: Yes Status: Acute Priority: High Code(s): C79.9 - SECONDARY MALIGNANT NEOPLASM OF UNSPECIFIED SITE; C50.919 - MALIGNANT NEOPLASM OF UNSP SITE OF UNSPECIFIED FEMALE BREAST SNOMED Code(s): 811840380 (3) Pleural effusion Current Visit: Yes Status: Acute Priority: High Code(s): J90 - PLEURAL E FFUSION, NOT ELSEWHERE CLASSIFIED SNOMED Code(s): 52596624 Plan: Metastatic, triple negative breast cancer -Full history in HPI. Most recently been on treatment with xeloda and keytruda -Unfortunately, left chest wall biopsy on 11/18/23 revealed invasive mammary ductal carcinoma. PET/CT on 12/03/2023 revealed disease progression with uptake wi thin mediastinal and hilar lymph nodes, uptake within the liver, new osseous metastases including thoracic vertebral bodies and right ilium and left anterior rib. Persistent intense uptake in the distal sigmoid colon. Pleural fluid cytology unfortunately has returned positive for the same. -She was advised that, given the extent of disease, it would not be considered curable. The objective of treatment going forward would be prolongation of life and palliation of symptoms.At this time the plan from primary medicine standpoint is to do intermittent paracenteses, and consider chest tube place ment, if rate of accumulation is too rapid. The patient will be started on palliative chemotherapy with Eribulin and is scheduled for cycle 1 on 01/04/2024. Plan is for discharge today, will schedule patient to begin treatment Thursday if scheduling allows, if not will start early next week Pt updated on POC Recurrent pleural effusions: -Had left-sided thoracentesis on 12/10 with 1200ml removed, cytology positive for metastatic ductal breast carcinoma. Repeat left-sided thoracentesis on 12/23 with 1000 mL removed Upon admission chest x-ray showed small bilateral pleural effusions. Due to progressing shortness of breath CTA chest ordered. Scan revealed no evidence for PE. Large bilateral pleural effusions and slightly enlarged right hilar lymph node. -Pulmonology consulted. S/p left-sided thoracentesis performed with 950 cc removed. Consult placed to cardiothoracic surgery for evaluation for Pleurx placement due to recurrent nature pleural effusions. Scheduled for pleurx placement on 01/13 -Home O2 ordered Intractable pain: Presented with complaints of chest pain and associated SOB. Pt reports prescribed norco was helping control pain well, but over last 3 days, medication stopped working to control pain causing her to present for further evaluation. She states chest pain is located across sternum, left chest and left lateral chest wall, radiating to left neck, LUE and left upper back -This area was previously biopsied to be metastatic breast cancer -She required 20 mg of IV morphine over the past 24 hours, equivalent to 60 mg of oral morphine -[place] 5/325 was not providing adequate pain relief -We discussed alternative pain regimens including increasing [place] to 10/325 every 4 hours as needed versus long-acting morphine 30 mg twice daily -She notes morphine causes nausea, which [place] does not -We will try [place] 10/325 mg every 4 hours as needed. Reporting pain is currently well controlled on current regimen, will continue on this regimen. Will continue to monitor in clinic f/u -Zofran increased to 8 mg every 8 hours as needed -In addition to Colace 100 mg twice daily, MiraLAX daily will be given for bowel regimen while on pain medication -If pain can be controlled with oral pain medications, will defer on palliative radiation to this region and initiate cycle 1 of eribulin as soon as possible
[2024-01-06 12:47] VITALS: BP 113/78; PULSE 108; TEMP 97.8
[2024-01-06] MEDS: NA PHOS,M-B/NA PHOS,DI-BA 133 ML ENEMA RECTAL ONE (13:06)
--- NOTE | 2024-01-06 13:23 | P.PN ---
Subjective Progress Note Date: 01/06/24 This is a very pleasant 68-year-old female patient with a known history of metastatic triple negative ductal carcinoma of the left breast and is status post left mastectomy back in March 2023. She did have positive lymph nodes as well. She had undergone subsequent chemotherapy and oral hormone treatment. Most recently she had been on Xeloda and Keytruda however in December 2023 a PET scan showed progression of disease with uptake in the mediastinum and left hilum compatible with metastatic disease. She had also developed a large left-sided pleural effusion and had undergone thoracentesis x 2 since then. Cytology is positive for metastatic ductal breast carcinoma. She presented to the emergency room here again on December 31, 2023 with worsening shortness of breath. We were consulted today 01/04/2024 for recurrent large left pleural effusion. He is seen today in consultation on the oncology floor. She is awake and alert. Afebrile. Hemodynamically stable. Maintaining O2 saturation in the 90s on 3 L/min per nasal cannula. White count 5.6. Hemoglobin 13.3. Platelets 201. Sodium 138. Potassium 4.5. Bicarb 28. BUN 8. Creatinine 0.5. Due to her discomfort and shortness of breath a third thoracentesis was performed with 950 mL of fluid removed. Not sent for fluid analysis or cytology. Plan will be to consult cardiothoracic surgery for eventual Pleurx catheter placement. The patient is seen today January 05, 2024 in follow-up on the regular medical floor. She is resting comfortably in bed. Awake and alert in no acute distress. Maintaining good O2 saturations in the 90s on 2 L/min per nasal cannula. Follow-up chest x-ray of the left pleural effusion postthoracentesis revealed increased aeration. There remains some cardiomegaly and pulmonary vascular congestion. White count 5.4. Hemoglobin 13.9. Platelets 197. Sodium 135. Potassium 4.7. Bicarb 29. BUN 9. Creatinine 0.4. Glucose 89. She remains on heparin for DVT prophylaxis. Continued on bronchodilators. The patient is seen today January 06, 2024 in follow-up on the regular medical floor. She is awake and alert in no acute distress. She is sitting up in bed. She is maintaining good O2 saturations in the 90s on 3 L/min per nasal cannula. She is afebrile. Hemodynamically stable. White count 4.2. Hemoglobin 14.5. Platelets 203. Sodium 136. Potassium 5.1. Bicarb 30. BUN 7.7. Creatinine 0.5. Glucose 88. Her pain is well-controlled. She is continued on bronchodilators. Heparin for DVT prophylaxis. Objective - Vital Signs Vital signs: Vital Signs Temp 97.8 F 01/06/24 11:28 Pulse 80 01/06/24 12:02 Resp 16 01/06/24 11:28 BP 113/78 01/06/24 11:28 Pulse Ox 92 L 01/06/24 11:28 FiO2 Intake & Output 01/05/24 01/06/24 01/06/24 18:59 06:59 18:59 Intake Total 590 790 Balance 590 790 Weight 42.638 kg Intake: Oral 590 790 Other: Voiding Method Toilet # Voids 1 2 - Exam GENERAL EXAM: Alert, thin pleasant 68-year-old female, sitting up in bed, on 3 L nasal cannula, comfortable in no apparent distress. HEAD: Normocephalic. EYES: Normal reaction of pupils, equal size. NOSE: Clear with pink turbinates. THROAT: No erythema or exudates. NECK: No masses, no JVD. CHEST: No chest wall deformity. LUNGS: Equal air entry with diminished breath sounds in the left base, dullness. CVS: S1 and S2 normal with no audible murmur, regular rhythm. ABDOMEN: No hepatosplenomegaly, normal bowel sounds, no guarding or rigidity. SPINE: No scoliosis or deformity SKIN: No rashes CENTRAL NERVOUS SYSTEM: No focal deficits, tone is normal in all 4 extremities. EXTREMITIES: There is no peripheral edema. No clubbing, no cyanosis. Peripheral pulses are intact. - Labs CBC & Chem 7: 01/06/24 05:52 01/06/24 05:52 Labs: Abnormal Lab Results - Last 24 Hours (Table) 01/06/24 01/06/24 Range/Units 05:52 05:52 WBC 4.25 L (4.50-10.00) X 10*3/uL MCV 101.4 H (80.0-97.0) FL MCH 33.9 H (27.0-32.0) pg RDW 14.6 H (11.5-14.5) % BUN 7.7 L (9.0-27.0) mg/dL Creatinine 0.5 L (0.6-1.5) mg/dL Assessment and Plan Assessment: Acute shortness of breath secondary to recurrent moderate size to large size left-sided pleural effusion which is metastatic/malignant in nature. As such, the patient had previously undergone therapeutic thoracentesis x 2. Cytology positive for metastatic disease Recurrent left-sided pleural effusion status post drainage of 950 L of pleural fluid from the left lung January 04, 2024. Previous fluid is positive for metastatic ductal breast carcinoma and fluid was not sent again Acute hypoxic respiratory failure secondary to above currently on 3 L nasal c annula Metastatic breast cancer post left mastectomy and chemotherapy and hormonal treatment. The most recent PET/CT that was done in 12/04/2023 showed metastatic disease with pulmonary, liver and skeletal involvement COPD Chronic and ongoing tobacco dependence History of meningitis History of an ovarian cyst Plan: The patient was seen and evaluated Labs and medications reviewed Plan is for outpatient Pleurx catheter placement on 01/11/2024 She is cleared for discharge from the pulmonary standpoint I have personally seen and examined the patient, performed the documentation and the assessment and plan as written. Number of minutes spent on the visit: 10.
--- NOTE | 2024-01-10 18:19 | P.DS ---
Providers Date of admission: 01/01/24 02:07 Expected date of discharge: 01/06/24 Attending physician: Rod Cueto MD Consults: 01/01/24 02:07 Consult Physician Routine Consulting Provider: Isra Dee Consult Reason/Comments: cancer pain Do you want consulting provider notified?: Yes 01/04/24 14:26 Consult Physician Routine Consulting Provider: Albina Palomo Consult Reason/Comments: pl effusions Do you want consulting provider notified?: Yes 01/04/24 17:18 Consult Physician Routine Consulting Provider: Tony Lazar Consult Reason/Comments: Pleurx catheter placement Do you want consulting provider notified?: Already Contacted Primary care physician: Stated None Hospital Course: Final diagnosis -Cancer associated pain; patient has history of breast cancer metastasis and is status postmastectomy; completed chemotherapy and radiation therapy -Acute hypoxic respiratory failure, multifactorial, secondary to bilateral pleural effusion as well as COPD acute exacerbation -Status post left-sided thoracentesis -Hypothyroidism -Anxiety -Asthma/COPD; acute exacerbation -GI prophylaxis -DVT prophylaxis -Full code Discharge disposition Patient is being discharged in a stable condition with guarded prognosis to home. Patient will follow-up with oncology and pulmonary along with CT surgery in the outpatient setting upon discharge. Patient is to continue with current medications and follow-up with CT surgery as scheduled for pleural vent placement. Total time taken is greater than 35 minutes. Hospital course This is a 68-year-old female who was recently admitted with increased shortness of breath with pain and dyspnea being closely monitored with pulmonary and oncology. Patient had pleural effusion status post thoracentesis approximately 950 removed on the left. Specimen sent and pending at this time. Patient with metastasis from breast cancer high suspicion of lung association and being scheduled outpatient for treatment as well as Thora vent catheter placement for recurrent pleural effusions. Patient to follow-up with CT surgery outpatient in the next 1 to 2 weeks as discussed. Patient is requiring oxygen to manage COPD. Patient will continue with breathing treatments and close outpatient follow-up with pulmonary as well as oncology. Currently no reports of chest pain, no worsening shortness of breath, or palpitations. Patient is afebrile. No reports of nausea or vomiting and patient is tolerating diet. Patient will be discharged home today. Guarded prognosis Physical exam: Gen: This is a 68-year-old female who is awake, alert and oriented x 3, thin built, elderly appearing HEENT: Head is atraumatic, normocephalic. Pupils equal, round. Sclerae is anicteric. NECK: Supple. No JVD. No lymphadenopathy. No thyromegaly. LUNGS: Diminished breath sounds bilaterally otherwise clear to auscultation. No wheezes or rhonchi. No intercostal retractions. HEART: Regular rate and rhythm. No murmur. ABDOMEN: Soft. Bowel sounds are present. No masses. No tenderness. EXTREMITIES: No pedal edema. No calf tenderness. NEUROLOGICAL: Patient is awake, alert and oriented x3. Cranial nerves 2 through 12 are grossly intact. Please refer to medication reconciliation sheet for a list of medications. The impression and plan of care has been dictated by Bessie Gomez, Nurse Practitioner as directed. Dr. David MD I have performed a history and examination and MDM of this patient, discussed the same with the dictator, and agree with the dictator's assessment and plan as written ,documented as a scribe. Based on total visit time, I have performed more than 50% of the visit. Patient Condition at Discharge: Fair Plan - Discharge Summary Discharge Rx Participant: No New Discharge Prescriptions: New Docusate [Colace] 100 mg PO BID cap polyethylene glycoL 3350 [Miralax] 17 gm PO DAILY PRN packet PRN Reason: Constipation Continue Levothyroxine Sodium [Synthroid] 88 mcg PO DAILY ALPRAZolam [Xanax] 0.5 mg PO TID PRN PRN Reason: anxiety Albuterol Sulfate [Ventolin HFA] 2 puff INHALATION RT-Q6H PRN PRN Reason: Shortness Of Breath Or Wheezing No Action HYDROcodone/APAP 10-325MG [[place] 10-325] 1 tab PO Q6HR PRN PRN Reason: Pain Discharge Medication List Levothyroxine Sodium [Synthroid] 88 mcg PO DAILY 03/10/23 [History] ALPRAZolam [Xanax] 0.5 mg PO TID PRN 12/23/23 [History] Albuterol Sulfate [Ventolin HFA] 2 puff INHALATION RT-Q6H PRN 01/01/24 [History] Docusate [Colace] 100 mg PO BID cap 01/06/24 [Rx] polyethylene glycoL 3350 [Miralax] 17 gm PO DAILY PRN packet 01/06/24 [Rx] HYDROcodone/APAP 10-325MG [[place] 10-325] 1 tab PO Q6HR PRN 01/08/24 [History] Follow up Appointment(s)/Referral(s): Nick Ann NPC [Nurse Practitioner] - 01/18/24 1:15 pm ([facility] office, [address] ) [facility] [NON-STAFF] - 1 Week [facility], [NON-STAFF] - 1-2 Days Roney Lema DO [STAFF PHYSICIAN] - 01/14/24 10:30 am (previously scheduled appointment) Tony Lazar MD [STAFF PHYSICIAN] - 01/14/24 7:30 am (Plan is for left sided pleurx catheter placement on 01/14/24 at 7:30 am. The OR staff will call you on Thursday afternoon to let you know what time to report to the hospital for . Nothing to eat or drink after midnight except sips of water for medications ) Activity/Diet/Wound Care/Special Instructions: Activity limited until follow-up Follow-up with primary care provider on discharge Follow-up with oncology Follow-up pulmonary Follow-up with CT surgery as scheduled Continue taking medications as prescribed Discharge Disposition: HOME WITH HOME HEALTH SERVICES
== END 2024-01-06 15:10 | disposition home health service (06) | DRG 947 ==
LOC: EC 22:26 → 5NMEDONC 01-01 02:07
PROVIDERS: ADMIT Internal Medicine; ATTEND Internal Medicine
PROC: 0W9B3ZZ Drainage of Left Pleural Cavity, Percutaneous Approach (ICD-10-PCS; principal; 2024-01-04)
DX: G89.3 Neoplasm related pain (acute) (chronic) (principal); J96.01 Acute respiratory failure with hypoxia; J91.0 Malignant pleural effusion; J81.1 Chronic pulmonary edema; J44.1 Chronic obstructive pulmonary disease with (acute) exacerbation; C79.51 Secondary malignant neoplasm of bone; Z90.12 Acquired absence of left breast and nipple; M54.50 Low back pain, unspecified; Z79.51 Long term (current) use of inhaled steroids; F17.210 Nicotine dependence, cigarettes, uncomplicated; F41.9 Anxiety disorder, unspecified; I10 Essential (primary) hypertension; N64.4 Mastodynia; Z85.3 Personal history of malignant neoplasm of breast; C50.919 Malignant neoplasm of unspecified site of unspecified female breast; E03.9 Hypothyroidism, unspecified; Z17.1 Estrogen receptor negative status [ER-]; Z92.3 Personal history of irradiation; Z71.6 Tobacco abuse counseling; Z80.0 Family history of malignant neoplasm of digestive organs; Z86.61 Personal history of infections of the central nervous system; Z90.710 Acquired absence of both cervix and uterus; Z79.890 Hormone replacement therapy; Z92.21 Personal history of antineoplastic chemotherapy; Z96.1 Presence of intraocular lens; Z98.42 Cataract extraction status, left eye; Z98.41 Cataract extraction status, right eye
CPT/HCPCS: 36415; 71045; 71046; 71275; 80048; 80053; 83735; 83880; 84484; 85025; 85610; 85730; 93005; 94640; 96361; 96374; 96375; 96376; 99285

== ENCOUNTER 2024-01-14 06:07 | Day surgery (SDC) | payer MEDICARE, OTHER ==
[2024-01-08 14:35] VITALS: BMI 16.1
[2024-01-14] MEDS ORDERED: LIDOCAINE 1% (10MG/ML) FOR IV START INTRADERMA PRN (06:36)
[2024-01-14] MEDS ORDERED: MIDAZOLAM 2 MG/2 ML VIAL IV PRN (07:00)
[2024-01-14] MEDS ORDERED: HYDROmorphone 0.5 MG/0.5 ML SYRINGE IVP PRN (07:00)
[2024-01-14] MEDS: LACTATED RINGERS 1,000 ML IV SCH (07:08)
[2024-01-14] MEDS: DEXAMETHASONE SOD PHOSPHATE 4 MG/ML 1 ML VIAL IV ONE (07:13)
[2024-01-14] MEDS ORDERED: fentaNYL (PF) 50 MCG/ML 2 ML AMP ONE (07:25)
[2024-01-14] MEDS ORDERED: MIDAZOLAM 2 MG/2 ML VIAL ONE (07:25)
[2024-01-14 07:40] VITALS: TEMP 97
[2024-01-14] MEDS: LIDOCAINE 1% INJ 10MG/ML (10 ML MDV) SQ ONE (08:08)
--- NOTE | 2024-01-14 08:39 | P.OP ---
Date of Procedure: 01/14/24 Preoperative Diagnosis: Recurrent malignant pleural effusion Postoperative Diagnosis: Same Procedure(s) Performed: Left sided pleurX insertion under fluoroscopic guidance Implants: PleurX - left side Anesthesia: local Surgeon: Tony Lazar Estimated Blood Loss (ml): 5 Pathology: none sent Condition: stable Disposition: PACU Indications for Procedure: This patient is a 68 year-old F with a hx of triple negative breast cancer s/p mastectomy who developed recurrent malignant left sided pleural effusion. She now requires a pleurX Operative Findings: 1000 serous fluid removed. Description of Procedure: The patient was brought back to the operating room and placed in supine position. Her left chest was prepped and draped and she could not tolerate sedation due to shortness of breath. I used 1% lidocaine to anesthetize two areas on the skin. The introducer need was inserted posteriorly and guidewire inserted into the chest which was confirmed with flouro. The cathter was tunneled and inserted into the chest via the peel away sheath. 1000cc of serous fluid removed. Posterior incision was closed using 4-0 monocryl and glue. Dressing was applied.
--- NOTE | 2024-01-14 09:06 | FL ---
EXAMINATION TYPE: FL guidance operating room Intraoperative/procedural fluoroscopic services were pro vided. Total fluoroscopy time is 4 seconds with images to PACS. Please see the operative/procedural n ote for further details. DAP: [id number] mGym2
[2024-01-14 09:26] VITALS: BP 128/85; PULSE 98; RESP 18
== END 2024-01-14 09:13 | disposition home health service (06) ==
LOC: OR 06:07
PROVIDERS: ATTEND Thoracic Surgery (Cardiothoracic Vascular Surgery)
DX: J91.0 Malignant pleural effusion (principal); Z85.3 Personal history of malignant neoplasm of breast
CPT/HCPCS: 32554; J2250; J1100; J0690; J3010; J2001

== ENCOUNTER 2024-01-27 17:37 | Inpatient (IN) | payer MEDICARE, OTHER ==
[2024-01-27 18:36] LABS: HCT 34.9 % (34.0-46.0); HGB 11.9 gm/dL (11.4-16.0); MCH 33.5 pg (25.0-35.0); MCHC 34.1 g/dL (31.0-37.0); MCV 98.2 fL (80.0-100.0); Mean Platelet Volume 8.2; Platelet Count 199 k/uL (150-450); RBC 3.55 m/uL (3.80-5.40)
--- NOTE | 2024-01-27 18:38 | XR ---
EXAMINATION TYPE: XR chest 2V DATE OF EXAM: 01/27/2024 6:19 PM CLINICAL INDICATION:Female, 68 years old with history of Chest Pain; [facility] COMPARISON: Chest 01/04/2024 TECHNIQUE: XR chest 2V. Frontal and lateral views of the chest.. FINDINGS: Lines/Tubes/Devices: Right chest [id number] with catheter tip over the mid to inferior SVC. Left basilar small caliber drainage tube. Heart/mediastinum: Heart size is indeterminate. Mediastinum is not widened. Pulmonary vascularity: Congestion, similar to prior. Lungs/Pleura: Moderate right pleural effusion appears slightly increased. [id number] left pleu ral effusion, appears decreased status post placement of a left basilar drainage tube. Air-fluid leve l at the base of the lung now suggesting presence of hydropneumothorax. Additionally there is a pleur al line seen at the left lung apex with pleural separation of about 2.4 cm, compatible with a small t o moderate-sized apical pneumothorax. Lateral view shows some retrosternal lucency which could be inc reased clear space or portion of pneumothorax. Pleural thickening and/or fluid tracking at the lung a pices is again seen. Aerated lungs demonstrate greater right basilar opacity likely due to compressiv e atelectasis. Similar left basilar opacity likely due to atelectasis. Correlate clinically to exclud e superimposed infection. Background chronic interstitial changes. Musculoskeletal: No acute osseous abnormality demonstrated in the limits of the exam. Other findings: None. IMPRESSION: 1. Redemonstration of vascular congestion with bilateral pleural effusions, increased on the right a nd decreased on the left, status post placement of left basilar drainage tube. Findings may be relate d to moderate to severe CHF. 2. Development of moderate left-sided pneumothorax, forming hydropneumothorax.
--- NOTE | 2024-01-27 18:39 | ED ---
Chest Pain HPI - General Chief Complaint: Chest Pain Stated Complaint: chest Pain Time Seen by Provider: 01/27/24 17:57 Source: patient, EMS Mode of arrival: EMS Limitations: no limitations - History of Present Illness Initial Comments: This patient is a 68-year-old woman who presents with a couple of complaints. She is complaining of having left-sided chest pain. The patient has history of breast cancer and then there was development of suspected malignant effusion in December. The patient had Pleurx catheter placed by Dr. Lizzie Lazar January 13, and has been draining this at home with aid of visiting nurse and sometimes her . It was last drained 2 days ago. The patient states she is also having abdominal pain that feels like constipation. She states its intermittent, migratory, and crampy. She has not had a bowel movement in a week and believes this is due to the [place] that she is using. Patient has tried using stool softener and MiraLAX. She did take magnesium citrate without relief. She has had some occasional vomiting. The patient relates that she has been receiving active chemotherapy. She has not noted fever or chills. She is not having productive cough though does have occasional cough. MD Complaint: chest pain Onset/Timin -: days(s) Onset: during rest Pain Location: left chest Pain Radiation: none Severity: moderate Quality: aching Consistency: constant Improves With: nothing Worsens With: inspiration, movement Anginal Symptoms: nausea, vomiting Other Symptoms: cough Treatments Prior to Arrival: none - Related Data Home Medications Medication Instructions Recorded Confirmed Levothyroxine Sodium [Synthroid] 88 mcg PO DAILY 03/10/23 01/27/24 ALPRAZolam [Xanax] 0.5 mg PO TID PRN 12/23/23 01/27/24 Albuterol Sulfate [Ventolin HFA] 2 puff INHALATION RT-Q6H PRN 01/01/24 01/27/24 HYDROcodone/APAP 10-325MG [[place] 1 tab PO Q6HR 01/08/24 01/27/24 10-325] Previous Rx's Medication Instructions Recorded Docusate [Colace] 100 mg PO BID cap 01/06/24 polyethylene glycoL 3350 [Miralax] 17 gm PO DAILY PRN packet 01/06/24 Allergies Allergy/AdvReac Type Severity Reaction Status Date / Time No Known Allergies Allergy Verified 01/27/24 18:45 Review of Systems ROS Statement: Those systems with pertinent positive or pertinent negative responses have been documented in the HPI. ROS Other: All systems not noted in ROS Statement are negative. Constitutional: Denies: fever, chills Respiratory: Reports: cough. Denies: dyspnea, wheezes, hemoptysis Cardiovascular: Reports: chest pain. Denies: palpitations, orthopnea, edema, syncope Gastrointestinal: Reports: nausea, vomiting, constipation. Denies: abdominal pain, diarrhea, melena, hematochezia Genitourinary: Denies: dysuria, hematuria Musculoskeletal: Denies: back pain Skin: Denies: rash Neurological: Denies: headache, weakness Psychiatric: Reports: anxiety EKG Findings - EKG Results: EKG: interpreted by RADHA, sinus rhythm (Rate 74 bpm), normal axis, normal ST/T - Blocks, [place], Hypertrophy, ST Abn: AV and intraventricular conduction: right bundle branch block (fixed/intermittent, complete/incomplete) (Incomplete) Past Medical History Past Medical History: Cancer, COPD, Eye Disorder Additional Past Medical History / Comment(s): MENINGITIS, 19 YRS OLD ovarian cyst burst., NO MEDS FOR COPD. , FLOATER RIGHT EYE., LEFT BREAST CANCER - pt had a recent PET scan that showed at spot that they wanted to check out for m ets. History of Any Multi-Drug Resistant Organisms: None Reported Past Surgical History: Hysterectomy, Tonsillectomy Additional Past Surgical History / Comment(s): RUPTURED GRAFIAN FOLLICLE, HARITHA CATARACTS with lens implants mastecotomy march 2023 Past Anesthesia/Blood Transfusion Reactions: No Reported Reaction Additional Past Anesthesia/Blood Transfusion Reaction / Comment(s): HX OF BLOOD TRANSFUSION-NO REACTION Past Psychological History: Anxiety Smoking Status: Former smoker Past Alcohol Use History: Occasional Past Drug Use History: None Reported - Past Family History Father Family Medical History: Cancer Additional Family Medical History / Comment(s): PANCREATIC CANCER Brother(s) Family Medical History: Cancer, Thyroid Disorder Additional Family Medical History / Comment(s): STOMACH CANCER General Exam Limitations: no limitations General appearance: alert, cachectic Head exam: Present: atraumatic, normocephalic Eye exam: Present: normal appearance. Absent: scleral icterus, conjunctival injection ENT exam: Present: mucous membranes dry Neck exam: Present: normal inspection, full ROM Respiratory exam: Present: wheezes, rhonchi. Absent: chest wall tenderness, accessory muscle use, decreased breath sounds Cardiovascular Exam: Present: regular rate, normal rhythm, normal heart sounds. Absent: systolic murmur, diastolic murmur, rubs, gallop GI/Abdominal exam: Present: soft. Absent: distended, tenderness, guarding, rebound, mass Rectal exam: Present: normal inspection, normal rectal tone, other (Is firm stool however it is just at fingertip level and therefore not able to perform disimpaction.). Absent: black stool, bloody stool, hemorrhoids, mass, tenderness Extremities exam: Present: normal inspection, normal capillary refill. Absent: pedal edema, calf tenderness Back exam: Present: normal inspection. Absent: CVA tenderness (R), CVA tenderness (L) Neurological exam: Present: alert Skin exam: Present: warm, dry, intact, normal color. Absent: rash Course Vital Signs 01/27/24 01/27/24 01/27/24 17:41 17:51 18:00 Temperature 97.7 F Pulse Rate 78 Pulse Rate [ Pulse Oximetery ] Respiratory 18 Rate Blood Pressure 104/70 104/70 107/68 Blood Pressure [Right Arm] O2 Sat by Pulse 94 L 98 96 Oximetry 01/27/24 01/27/24 01/27/24 18:30 19:00 21:37 Temperature Pulse Rate 67 Pulse Rate [ Pulse Oximetery ] Respiratory 18 Rate Blood Pressure 107/68 95/68 108/71 Blood Pressure [Right Arm] O2 Sat by Pulse 96 100 96 Oximetry 01/27/24 01/28/24 01/28/24 23:57 03:46 06:00 Temperature Pulse Rate 85 69 78 Pulse Rate [ Pulse Oximetery ] Respiratory 18 18 18 Rate Blood Pressure 111/71 106/70 111/68 Blood Pressure [Right Arm] O2 Sat by Pulse 98 97 97 Oximetry 01/28/24 01/28/24 01/28/24 09:02 09:03 09:16 Temperature 97.6 F Pulse Rate 66 Pulse Rate [ 93 93 Pulse Oximetery ] Respiratory 18 18 Rate Blood Pressure Blood Pressure 98/58 [Right Arm] O2 Sat by Pulse 98 96 Oximetry 01/28/24 01/28/24 01/28/24 09:23 12:09 13:30 Temperature Pulse Rate 79 Pulse Rate [ 82 Pulse Oximetery ] Respiratory 18 18 Rate Blood Pressure Blood Pressure 110/71 [Right Arm] O2 Sat by Pulse 95 Oximetry 01/28/24 01/28/24 01/28/24 15:06 16:44 16:56 Temperature Pulse Rate 71 75 Pulse Rate [ 74 Pulse Oximetery ] Respiratory 18 Rate Blood Pressure Blood Pressure 119/82 [Right Arm] O2 Sat by Pulse 97 Oximetry 01/28/24 17:30 Temperature 98.0 F Pulse Rate Pulse Rate [ 84 Pulse Oximetery ] Respiratory 18 Rate Blood Pressure Blood Pressure 108/70 [Right Arm] O2 Sat by Pulse 96 Oximetry Chest Pain MDM - MDM I did attach the patient's Pleurx catheter to a Pleur-evac bottle and we were able to take over 100 mL of fluid and it did seem that there was moderate amount of air as well. Chest x-ray obtained following the drainage did not reveal evident decrease in the pneumothorax at the apex of the left lung. Patient will have admission to medical service with consult to cardiothoracic to rule out any other intervention. The patient's constipation does seem to be narcotic related there is firm stool however it was above the level where manual disimpaction can be performed. The patient stated that she is not able to retain an enema, and therefore will have patient slowly take GoLytely to promote bowel movement. Was pt. sent in by a medical professional or institution ([facility], MANAGER PRACTICE, urgent care, hospital, or shelter...) When possible be specific @ -[No] Did you speak to anyone other than the patient for history (EMS, parent, family, police, friend...)? What history was obtained from this source @ -[No] Did you review nursing and triage notes (agree or disagree)? Why? @ -[I reviewed and agree with nursing and triage notes] Were old charts reviewed (outside hosp., previous admission, EMS record, old EKG, old radiological studies, urgent care reports/EKG's, shelter records)? Report findings @ -[No old charts were reviewed] Differential Diagnosis (chest pain, altered mental status, abdominal pain women, abdominal pain men, vaginal bleeding, weakness, fever, dyspnea, syncope, headache, dizziness, GI bleed, back pain, seizure, CVA, palpatations, mental health, musculoskeletal)? @ -[Differential Chest Pain: Stable Angina, Unstable Angina, STEMI, NSTEMI Aortic Dissection, Pneumothorax, Musculoskeletal, Esophageal Spasm GERD, Cholecystitis, Pancreatitis, Zoster, this is not meant to be an all-inclusive list. EKG interpreted by me (3pts min.). @ -[I interpreted as above] X-rays interpreted by me (1pt min.). @ -[I interpreted as above CT interpreted by me (1pt min.). @ -[None done] U/S interpreted by me (1pt. min.). @ -[None done] What testing was considered but not performed or refused? (CT, X-rays, U/S, labs)? Why? @ -[None] What meds were considered but not given or refused? Why? @ -[None] Did you discuss the management of the patient with other professionals (professionals i.e. , PA, MANAGER PRACTICE, lab, RT, psych nurse, social security benefits interviewer, assurance specialist, teacher, multisensor intelligence officer, binder caser)? Give summary @ -[Case discussed with admitting physician and patient will be admitted to have consultation with cardiothoracic surgery as well as oncology. Was smoking cessation discussed for >3mins.? @ -[No] Was critical care preformed (if so, how long)? @ -[No] Were there social determinants of health that impacted care today? How? (Homelessness, low income, unemployed, alcoholism, drug addiction, transportation, low edu. Level, literacy, decrease access to med. care, chcf, rehab)? @ -[No] Was there de-escalation of care discussed even if they declined (Discuss DNR or withdrawal of care, Hospice)? DNR status @ -[No] What co-morbidities impacted this encounter? (DM, HTN, Smoking, COPD, CAD, Cancer, CVA, ARF, Chemo, Hep., AIDS, mental health diagnosis, sleep apnea, morbid obesity)? @ -[None] Was patient admitted / discharged? Hospital course, mention meds given and route, prescriptions, significant lab abnormalities, going to OR and other pertinent info. @ -[hospital course] Undiagnosed new problem with uncertain prognosis? @ -[No] Drug Therapy requiring intensive monitoring for toxicity (Heparin, Nitro, Insulin, Cardizem)? @ -[No] Were any procedures done? @ -[No] Diagnosis/symptom? @ -[Acute left chest pain Left hemopneumothorax, acute on chronic Abdominal pain, suspected due to constipation Acute, or Chronic, or Acute on Chronic? @ -[as above Uncomplicated (without systemic symptoms) or Complicated (systemic symptoms)? @ -[Uncomplicated Side effects of treatment? @ -[No] Exacerbation, Progression, or Severe Exacerbation? @ -[No] Poses a threat to life or bodily function? How? (Chest pain, [place], [place], pneumonia, PE, COPD, DKA, ARF, appy, cholecystitis, CVA, Diverticulitis, Homicidal, Suicidal, threat to staff... and all critical care pts) @ -[Yes Disposition Clinical Impression: Chest pain, Pneumothorax, Constipation Disposition: ADMITTED IP TO THIS HOSP Condition: Fair Is patient prescribed a controlled substance at d/c from ED?: No
[2024-01-27 18:50] LABS: ALT 14 U/L (4-34); AST 26 U/L (14-36); African American GFR (CKD) >90 (>60 ml/min/1.73 sqM); Albumin 2.9 g/dL (3.5-5.0); Alkaline Phosphatase 170 U/L (38-126); Anion Gap 6 mmol/L; Blood Urea Nitrogen 8 mg/dL (7-17); Calcium 7.9 mg/dL (8.4-10.2); Carbon Dioxide 21 mmol/L (22-30); Chloride 103 mmol/L (98-107); Glucose 81 mg/dL (74-99); Magnesium 1.8 mg/dL (1.6-2.3); Non-African American GFR(CKD) >90 (>60 ml/min/1.73 sqM); Potassium 3.4 mmol/L (3.5-5.1); Sodium 130 mmol/L (137-145); Total Bilirubin 0.4 mg/dL (0.2-1.3)
[2024-01-27] MEDS: MORPHINE SULFATE 4 MG/ML SYRINGE IV STA (19:00)
[2024-01-27] MEDS: SODIUM CHLORIDE 0.9% 500 ML 500 ML IV STA (19:01)
[2024-01-27 19:23] LABS: Partial Thromboplastin Time 24.3 sec (22.0-30.0); Prothrombin Time 10.9 sec (10.0-12.5)
[2024-01-27 19:40] LABS: WBC 1.4 k/uL (3.8-10.6)
[2024-01-27 20:03] LABS: Neutrophils % (M) 31 %
[2024-01-27 20:04] LABS: Band Neutrophils % 1 %; Basophils # (M) 0.01 k/uL (0-0.2); Lymphocytes # (M) 0.66 k/uL (1.0-4.8); Monocytes # (M) 0.28 k/uL (0-1.0)
[2024-01-27 20:05] LABS: Nucleated Red Blood Cells 0 /100 WBC (0-0); Total Cells Counted 100
[2024-01-27 20:06] LABS: RBC Morphology Normal
[2024-01-27] MEDS ORDERED: ACETAMINOPHEN TAB 325 MG TAB PO PRN (22:29)
[2024-01-27] MEDS ORDERED: ONDANSETRON 4 MG/2 ML VIAL IVP PRN (22:29)
[2024-01-27] MEDS ORDERED: NALOXONE 0.4 MG/ML 1 ML VIAL IV PRN (22:29)
[2024-01-27] MEDS ORDERED: ALPRAZolam 0.5 MG TAB PO PRN (22:32)
[2024-01-27] MEDS ORDERED: MORPHINE SULFATE 4 MG/ML SYRINGE IV PRN (22:52)
[2024-01-27] MEDS: LORazepam 2 MG/ML INJ IV STA (22:58)
[2024-01-27] MEDS: ONDANSETRON 4 MG/2 ML VIAL IVP STA (22:59)
[2024-01-27] MEDS: SODIUM CHLORIDE 0.9% 1,000 ML IV SCH (23:07)
--- NOTE | 2024-01-27 23:11 | XR ---
EXAM: XR chest 1V portable CLINICAL INDICATION:Female, 68 years old with history of re-evaluate pneumothorax; [facility] COMPARISON: 01/27/2024 6:25 PM TECHNIQUE: Chest single view. FINDINGS: Lines/tubes/devices: Right chest [id number] with catheter tip over the SVC unchanged. Left basilar drainage tube, unchanged. Cardiomediastinum: Margins obscured Pulmonary vascularity: Congestion, similar to prior. Lungs/Pleura: Moderate right pleural effusion again present. There is increased haziness/ill-definiti on of the right mid lung and interface with the effusion, this could be due to a true slight interval worsening or may be positional. The left basilar hydropneumothorax appears further decreased. Decrea sed left basilar atelectasis. The left apical pneumothorax component appears unchanged with pleural s eparation again about 2.4 CM. Pleural thickening and/or fluid tracking at the lung apices is again se en. Background chronic interstitial changes. Musculoskeletal: No acute osseous abnormality demonstrated in the limits of the exam. Other findings: Surgical clips over the left axilla. Patient appears likely post left mastectomy. IMPRESSION: 1. Left basilar drainage tube redemonstrated, with decreased left basilar hydropneumothorax and impr cele basilar atelectasis. 2. Left apical pneumothorax component appears unchanged. 3. Moderate right pleural effusion, with atelectasis and/or infiltrate in the right mid to lower gosia g, may have worsened slightly or the appearance may be positional.
[2024-01-28] MEDS: PEG 3350 (236 GM/BTL) + LYTES 4,000 ML BOTTLE PO ONE (00:02)
[2024-01-28] MEDS: HYDROcodone/APAP 10-325MG 1 EACH TAB PO SCH (00:24)
[2024-01-28] MEDS: ALPRAZolam 0.5 MG TAB PO PRN (05:55)
[2024-01-28] MEDS ORDERED: polyethylene glycoL 3350 17 GM POWD.PACK PO PRN (09:00)
[2024-01-28] MEDS: LEVOTHYROXINE 88 MCG TAB PO SCH (09:11)
[2024-01-28] MEDS: DOCUSATE 100 MG CAP PO SCH (09:11)
[2024-01-28] MEDS: ALBUTEROL NEBULIZED 2.5 MG/3 ML INHALATION PRN (09:15)
--- NOTE | 2024-01-28 11:37 | P.GSCN ---
History of Present Illness Consult date: 01/28/24 Reason for Consult: Known to our service from recent Pleurx catheter placement Requesting physician: Lorenzo Aj History of present illness: This is a 68-year-old female patient who follows outpatient with Dr. Lema for primary care and Dr. Ledesma for oncology. She has a previous medical history of metastatic triple negative ductal carcinoma of the left breast status post chemotherapy and left mastectomy in March 2023, recurrent left-sided malignant pleural effusions status post thoracentesis and subsequent pleurx catheter placement, COPD, previous tobacco dependence, and anxiety. She presented to the emergency department at [facility] in December 2023 with complaints of progressive dyspnea and pain to her left chest, and again in January 2024 for back pain. During both hospitalizations she underwent left sided thoracentesis with fluid sent for culture and cytology. During her December admission cardiothoracic was consulted for pleurx catheter placement. As she had just had thoracentesis there was not felt to be enough fluid to place Pleurx catheter safely, she was discharged and followed up outpatient to schedule Pleurx catheter placement which was placed electively and outpatient by Dr. Lazar on January 14, 2024. She was recovering at home and had been draining her Pleurx twice a week with 400 to 500 mL fluid drainage each time. Unfortunately she developed chest discomfort and constipation and presented back to [facility] emergency room yesterday for evaluation and treatment. Chest x-ray did demonstrate decreased pleural effusion from prior as well as left apical pneumothorax. Due to this finding consultation was placed to Dr. Lazar as the patient is known to us as well as for recommendations for further treatment. Review of Systems Review of systems was completed and was negative except as noted - Cardiovascular Reports chest pain - Gastrointestinal Reports constipation Past Medical History Past Medical History: Cancer, COPD, Eye Disorder Additional Past Medical History / Comment(s): MENINGITIS, 19 YRS OLD ovarian cyst burst., NO MEDS FOR COPD. , FLOATER RIGHT EYE., LEFT BREAST CANCER - pt had a recent PET scan that showed at spot that they wanted to check out for mets. Recurrent left-sided pleural effusion History of Any Multi-Drug Resistant Organisms: None Reported Past Surgical History: Hysterectomy, Tonsillectomy Additional Past Surgical History / Comment(s): RUPTURED GRAFIAN FOLLICLE, HARITHA CATARACTS with lens implants mastecotomy march 2023; left-sided Pleurx catheter placed January 14, 2024 Past Anesthesia/Blood Transfusion Reactions: No Reported Reaction Additional Past Anesthesia/Blood Transfusion Reaction / Comm: HX OF BLOOD TRANSFUSION-NO REACTION Past Psychological History: Anxiety Smoking Status: Former smoker Past Alcohol Use History: Occasional Past Drug Use History: None Reported - Past Family History Father Family Medical History: Cancer Additional Family Medical History / Comment(s): PANCREATIC CANCER Brother(s) Family Medical History: Cancer, Thyroid Disorder Additional Family Medical History / Comment(s): STOMACH CANCER Medications and Allergies Home Medications Medication Instructions Recorded Confirmed Type Levothyroxine Sodium [Synthroid] 88 mcg PO DAILY 03/10/23 01/27/24 History ALPRAZolam [Xanax] 0.5 mg PO TID PRN 12/23/23 01/27/24 History Albuterol Sulfate [Ventolin HFA] 2 puff INHALATION RT-Q6H PRN 01/01/24 01/27/24 History Docusate [Colace] 100 mg PO BID cap 01/06/24 01/27/24 Rx polyethylene glycoL 3350 [Miralax] 17 gm PO DAILY PRN packet 01/06/24 01/27/24 Rx HYDROcodone/APAP 10-325MG [[place] 1 tab PO Q6HR 01/08/24 01/27/24 History 10-325] Allergies Allergy/AdvReac Type Severity Reaction Status Date / Time No Known Allergies Allergy Verified 01/27/24 18:45 Surgical - Exam Vital Signs Temp Pulse Resp BP Pulse Ox 97.7 F 78 18 104/70 94 L 01/27/24 17:41 01/27/24 17:41 01/27/24 17:41 01/27/24 17:41 01/27/24 17:41 CONSTITUTIONAL: Awake and alert, appears comfortable, cooperative, no acute distress EYES: Pupils equal, round, reactive to light, normal ocular movement ENT: Moist mucous membranes without oral lesions present NECK: No masses, no bruits, trachea midline RESPIRATORY: Lungs sounds diminished in the bases bilaterally. Respirations even, nonlabored. Currently on 2 L nasal cannula with oxygen saturation 96%. Strong cough left-sided Pleurx catheter present under dry intact dressing CARDIOVASCULAR: S1, S2 present. Regular rate and rhythm. Palpable peripheral pulses bilaterally. No edema present. No calf pain or tenderness noted GASTROINTESTINAL: Abdomen soft, nontender, nondistended without masses or organomegaly noted. There is no rebound or guarding present. Active bowel sounds present 4 quadrants. GENITOURINARY: Deferred INTEGUMENTARY: Skin is warm and dry with evidence of good perfusion. NEUROLOGIC: Cranial nerves II through XII intact, normal coordination, no obvi ous motor or sensory deficits, speech is normal MUSKULOSKELETAL: Able to move all extremities, strength equal bilaterally, normal posture PSYCHIATRIC: Alert and oriented to person place and time, appropriate affect, intact judgment and insight Results - Labs 01/29/24 09:29 01/29/24 09:29 Abnormal Lab Results - Last 24 Hours (Table) 01/27/24 01/27/24 Range/Units 17:55 17:55 WBC 1.4 L* (3.8-10.6) k/uL RBC 3.55 L (3.80-5.40) m/uL Neutrophils # (Manual) 0.40 L* (1.3-7.7) k/uL Lymphocytes # (Manual) 0.66 L (1.0-4.8) k/uL Sodium 130 L (137-145) mmol/L Potassium 3.4 L (3.5-5.1) mmol/L Carbon Dioxide 21 L (22-30) mmol/L Creatinine 0.34 L (0.52-1.04) mg/dL Calcium 7.9 L (8.4-10.2) mg/dL Alkaline Phosphatase 170 H (38-126) U/L Total Protein 5.0 L (6.3-8.2) g/dL Albumin 2.9 L (3.5-5.0) g/dL Diabetes panel 01/27/24 Range/Units 17:55 Sodium 130 L (137-145) mmol/L Potassium 3.4 L (3.5-5.1) mmol/L Chloride 103 (98-107) mmol/L Carbon Dioxide 21 L (22-30) mmol/L BUN 8 (7-17) mg/dL Creatinine 0.34 L (0.52-1.04) mg/dL Glucose 81 (74-99) mg/dL Calcium 7.9 L (8.4-10.2) mg/dL AST 26 (14-36) U/L ALT 14 (4-34) U/L Alkaline Phosphatase 170 H (38-126) U/L Total Protein 5.0 L (6.3-8.2) g/dL Albumin 2.9 L (3.5-5.0) g/dL Calcium panel 01/27/24 Range/Units 17:55 Calcium 7.9 L (8.4-10.2) mg/dL Albumin 2.9 L (3.5-5.0) g/dL Pituitary panel 01/27/24 Range/Units 17:55 Sodium 130 L (137-145) mmol/L Potassium 3.4 L (3.5-5.1) mmol/L Chloride 103 (98-107) mmol/L Carbon Dioxide 21 L (22-30) mmol/L BUN 8 (7-17) mg/dL Creatinine 0.34 L (0.52-1.04) mg/dL Glucose 81 (74-99) mg/dL Calcium 7.9 L (8.4-10.2) mg/dL Adrenal panel 01/27/24 Range/Units 17:55 Sodium 130 L (137-145) mmol/L Potassium 3.4 L (3.5-5.1) mmol/L Chloride 103 (98-107) mmol/L Carbon Dioxide 21 L (22-30) mmol/L BUN 8 (7-17) mg/dL Creatinine 0.34 L (0.52-1.04) mg/dL Glucose 81 (74-99) mg/dL Calcium 7.9 L (8.4-10.2) mg/dL Total Bilirubin 0.4 (0.2-1.3) mg/dL AST 26 (14-36) U/L ALT 14 (4-34) U/L Alkaline Phosphatase 170 H (38-126) U/L Total Protein 5.0 L (6.3-8.2) g/dL Albumin 2.9 L (3.5-5.0) g/dL - Imaging Chest x-ray: report reviewed, image reviewed Assessment and Plan Assessment: Left-sided chest discomfort, constipation on admission Metastatic triple negative ductal carcinoma of the left breast status post chemotherapy and left mastectomy in March 2023 Recurrent left-sided malignant pleural effusions status post thoracentesis and subsequent pleurx catheter placement COPD Previous tobacco dependence Anxiety Plan: The patient was seen and examined laying on the cart in the emergency room in no acute distress, in fact was sleeping and had to be woken up for assessment. Chart/diagnostics were reviewed in detail with Dr. Lazar. The patient stated she feels better, has had a bowel movement and chest pain is better. On CXR lung appears trapped, is causing no distress to the patient. She should continue to drain her pleurx 2-3 times per week until drainage is less than 50 mL for three times in a row, at which time seh can contact our office for removal. No surgical intervention is warranted at this time. From our standpoint the patient may be discharged to home. This was all discussed with the patient and she verbalized understanding. Thank you for this consult. Please call us with any questions. I have personally seen and examined the patient, performed the documentation and the assessment and plan as written. Number of minutes spent on the visit: 30. Devi Guillen NP-C Attending Addendum: Pt seen and evaluated with Fire Chief'S Aide above. Agree with her assessment and plan. I spent 35 minutes reviewing the data and discussing the plan of care with the team. Time with Patient: Greater than 30
--- NOTE | 2024-01-28 13:09 | P.HPIM ---
History of Present Illness H&P Date: 01/28/24 History of present illness; patient is a 68-year-old lady with past medical history significant for metastatic breast cancer, recurrent left pleural effusion s/p Pleurx cath placement who presented to the ER for complaint of chest pain and constipation. Patient was recently admitted in the hospital in the beginning of the month. At the time because of recurrent pleural effusions patient patient had Pleurx catheter placed. Patient has been draining the Pleurx catheter at home. Patient has been complaining of left-sided chest pain for the last few days. Chest pain is intermittent, nonradiating, no aggravating or relieving factor associated with chest pain. Patient also been complaining of constipation and abdominal pain. Abdominal pain is generalized, intermittent and crampy in nature. There is no current nausea or vomiting. Denies any blood in the stools. Because of the symptoms, patient came to the ER Initial lab work done in the ER showed WBC 1.4, hemoglobin 9.9 platelet count 199, sodium 130, potassium 3.4, BUN 8, creatinine 0.34 alk phos 170 Pro-Patric 0.05 EKG done in the ER showed heart rate of , no ST segment elevation or depression seen, no T-wave inversions seen. Chest x-ray done in the ER showed redemonstration of vascular congestion with bilateral pleural effusions, increased on the right Patient admitted to internal medicine service REVIEW OF SYSTEMS: CONSTITUTIONAL: No fever, no malaise, no fatigue. HEENT: No recent visual problems or hearing problems. Denied any sore throat. CARDIOVASCULAR: As mentioned above PULMONARY: No shortness of breath, no cough, no hemoptysis. GASTROINTESTINAL: As mentioned above NEUROLOGICAL: No headaches, no weakness, no numbness. HEMATOLOGICAL: Denies any bleeding or petechiae. GENITOURINARY: Denies any burning micturition, frequency, or urgency. MUSCULOSKELETAL/RHEUMATOLOGICAL: Denies any joint pain, swelling, or any muscle pain. ENDOCRINE: Denies any polyuria or polydipsia. The rest of the 14-point review of systems is negative. PHYSICAL EXAMINATION: GENERAL: The patient is alert and oriented x3, not in any acute distress. Chronically ill looking HEENT: Pupils are round and equally reacting to light. EOMI. No scleral icterus. No conjunctival pallor. Normocephalic, atraumatic. No pharyngeal erythema. No thyromegaly. CARDIOVASCULAR: S1 and S2 present. No murmurs, rubs, or gallops. PULMONARY: Diminished breath sounds at bases bilaterally, left-sided Pleurx catheter seen ABDOMEN: Soft, nontender, nondistended, normoactive bowel sounds. No palpable organomegaly. MUSCULOSKELETAL: No joint swelling or deformity. EXTREMITIES: No cyanosis, clubbing, or pedal edema. NEUROLOGICAL: Gross neurological examination did not reveal any focal deficits. SKIN: No rashes. Assessment and plan Chest pain Abdominal pain Constipation Leukopenia Hyponatremia Hypokalemia Metastatic breast cancer Recurrent left pleural effusion s/p Pleurx catheter placement COPD Chronic and ongoing tobacco dependence History of meningitis History of an ovarian cyst Monitor vital signs Monitor CBC Monitor CMP Continue telemetry monitoring Trend troponins. Continue pain management Aggressive bowel regimen Resume home meds Consult hematology oncology Consult CT surgery Labs and medication were reviewed.. Continue same treatment. Continue with symptomatic treatment. Resume home medication. Monitor labs and vitals. DVT and GI prophylaxis. Further recommendations as per clinical course of the patient Dictation was produced using [employer] dictation software. please excuse any grammatical, word or spelling errors. Past Medical History Past Medical History: Cancer, COPD, Eye Disorder Additional Past Medical History / Comment(s): MENINGITIS, 19 YRS OLD ovarian cyst burst., NO MEDS FOR COPD. , FLOATER RIGHT EYE., LEFT BREAST CANCER - pt h ad a recent PET scan that showed at spot that they wanted to check out for mets. History of Any Multi-Drug Resistant Organisms: None Reported Past Surgical History: Hysterectomy, Tonsillectomy Additional Past Surgical History / Comment(s): RUPTURED GRAFIAN FOLLICLE, HARITHA CATARACTS with lens implants mastecotomy march 2023 Past Anesthesia/Blood Transfusion Reactions: No Reported Reaction Additional Past Anesthesia/Blood Transfusion Reaction / Comment(s): HX OF BLOOD TRANSFUSION-NO REACTION Past Psychological History: Anxiety Smoking Status: Former smoker Past Alcohol Use History: Occasional Past Drug Use History: None Reported - Past Family History Father Family Medical History: Cancer Additional Family Medical History / Comment(s): PANCREATIC CANCER Brother(s) Family Medical History: Cancer, Thyroid Disorder Additional Family Medical History / Comment(s): STOMACH CANCER Medications and Allergies Home Medications Medication Instructions Recorded Confirmed Type Levothyroxine Sodium [Synthroid] 88 mcg PO DAILY 03/10/23 01/27/24 History ALPRAZolam [Xanax] 0.5 mg PO TID PRN 12/23/23 01/27/24 History Albuterol Sulfate [Ventolin HFA] 2 puff INHALATION RT-Q6H PRN 01/01/24 01/27/24 History Docusate [Colace] 100 mg PO BID cap 01/06/24 01/27/24 Rx polyethylene glycoL 3350 [Miralax] 17 gm PO DAILY PRN packet 01/06/24 01/27/24 Rx HYDROcodone/APAP 10-325MG [[place] 1 tab PO Q6HR 01/08/24 01/27/24 History 10-325] Allergies Allergy/AdvReac Type Severity Reaction Status Date / Time No Known Allergies Allergy Verified 01/27/24 18:45 Physical Exam Vitals: Vital Signs Temp Pulse Pulse Resp BP BP Pulse Ox 01/28/24 09:23 79 01/28/24 09:16 66 96 01/28/24 09:03 93 18 01/28/24 09:02 97.6 F 93 18 98/58 98 01/28/24 06:00 78 18 111/68 97 01/28/24 03:46 69 18 106/70 97 01/27/24 23:57 85 18 111/71 98 01/27/24 21:37 67 18 108/71 96 01/27/24 19:00 95/68 100 01/27/24 18:30 107/68 96 01/27/24 18:00 107/68 96 01/27/24 17:51 104/70 98 01/27/24 17:41 97.7 F 78 18 104/70 94 L Intake and Output 01/27/24 01/28/24 01/28/24 22:59 06:59 14:59 Other: Voiding Method Bedpan Weight 40.823 kg Results CBC & Chem 7: 01/27/24 17:55 01/27/24 17:55 Labs: Abnormal Lab Results - Last 24 Hours (Table) 01/27/24 01/27/24 Range/Units 17:55 17:55 WBC 1.4 L* (3.8-10.6) k/uL RBC 3.55 L (3.80-5.40) m/uL Neutrophils # (Manual) 0.40 L* (1.3-7.7) k/uL Lymphocytes # (Manual) 0.66 L (1.0-4.8) k/uL Sodium 130 L (137-145) mmol/L Potassium 3.4 L (3.5-5.1) mmol/L Carbon Dioxide 21 L (22-30) mmol/L Creatinine 0.34 L (0.52-1.04) mg/dL Calcium 7.9 L (8.4-10.2) mg/dL Alkaline Phosphatase 170 H (38-126) U/L Total Protein 5.0 L (6.3-8.2) g/dL Albumin 2.9 L (3.5-5.0) g/dL
--- NOTE | 2024-01-28 19:32 | P.CONS ---
History of Present Illness - Reason for Consult Consult date: 01/28/24 metastatic breast cancer Requesting physician: Lorenzo Aj - Chief Complaint chest pain, SOB - History of Present Illness Ms Canchola is a pleasant white female, with a significnat history of metastatic breast cancer. She inittially presented with pain in her left breast. She therefore sought attention with her PCP, Dr. Lema. The patient had felt a mass in the central portion of the breast, which was confirmed on exam by her PCP. She therefore had a diagnostic mammogram on 06/12/22. This showed a large irregular, bilobed mass measuring 3.8 cm in the upper-outer quadrant. The patient had an ultrasound of the same day, that showed a 4.1 x 2.3 x 1.3 cm elongated irregular mass at 1:00, 8 cm from the nipple. In addition to that was an abnormally thickened lymph node measuring 9 mm. At 4:00, there was another irregular lesion measuring 1 x 0.7 cm and along the subareolar plane posteriorly a lesion measuring 1.8 x 0.9 cm. At the 11:00 there was a 0.9 x 0.7 cm lesion. The patient was therefore felt to have multicentric disease, and biopsy was recommended. Biopsy was performed on 06/26/22 for him to of the left breast masses and the axillary node. 1:00, and the 4:00 mass showed invasive ductal carcinoma grade 2, with the left axillary tail biopsy showing lymphoid tissue involved with grade 2 ductal carcinoma. Tumor morphology of all 3 specimens had similar appearance with ER and CT negative, and HER-2/audrey 0 by IHC. PET scan showed uptake in the breast lesions and left axilla. There was possibility of uptake in a left retropectoral nodes. There was no evidence of any distant metastatic disease. Incidental uptake was noted in the sigmoid colon, of uncertain etiology. The patient did have a colonoscopy subsequently in the third week of 08/23, that was negative. She then started neoadjuvant treatment with carboplatin/Taxol/Keytruda, on 08/12/22, with carboplatin plus immunotherapy given every 3 weeks, and Taxol weekly. She completed 4 cycles on 10/29/22. She then started Adriamycin/Cytoxan plus keytruda and completing those in 02/02/23. She was then continued on keytruda every 3 weeks. The patient had surgery on 03/16/23, with left modified radical mastectomy, and lymph node dissection. This showed multifocal invasive residual ductal carcinoma with margins negative. There appeared to be treatment effect in the breast. 10 out of 14 lymph nodes were involved, without evidence of definite response to presurgical therapy. It was decided to change adjuvant therapy, based on significant amount of residual disease. The patient had breast Next Testing done, that showed no targetable germ line mutation. Therefore Xeloda was added, to keytruda. Xeloda had to be held multiple times due to progressive skin toxicity. She was referred to radiation oncology during this time for adjuvant radiation/to avoid delays. On radiation oncology evaluation, she was noted to have a reddish confluent nodular rash involving the area of the incision on the left chest wall, that is felt to be suspicious for malignancy. She was referred back to surgery, and had a biopsy of this area on 11/18/23. Unfortunately biopsy revealed invasive mammary ductal carcinoma. PET/CT on 12/03/2023 revealed disease progression with uptake within mediastinal and hilar lymph nodes, uptake within the liver, new osseous metastases including thoracic vertebral bodies and right ilium and left anterior rib. Persistent intense uptake in the distal sigmoid colon. Cytology from thoracentesis during admission on 12/10/2023 was positive for metastatic ductal breast carcinoma. She was advised that, given the extent of disease, it would not be considered curable. The objective of treatment going forward would be prolongation of life and palliation of symptoms. Pleurx drain was placed on 01/14/24 after last admission due to recurrent pleural effusions. She completed cycle 1 Eribulin on 01/20/2024. Patient reports since discharge from last admission she has been having troubles with constipation despite use of Colace and MiraLAX daily. Patient was instruc katharine by her PCP to take citrate of magnesium. Patient reports after taking medication she had episode of nausea vomiting. After speaking with her PCP he instructed her to come to the emergency room for further evaluation to rule out bowel obstruction. Patient states she also has been having worsening left-sided chest pain as well as shortness of breath. Upon admission Pleurx drain was drained which has improved symptoms of shortness of breath and chest pain. CXR revealed redemonstration of vascular congestion with bilateral pleural effusions, increased on the right and decreased on the left, findings may be related to moderate to severe CHF. Development of moderate left sided pneumothorax, forming hydropneumothorax. BNP 104. CTS consulted. Patient reports having a large bowel movement earlier this morning. Reports improvement in abd discomfort s/p BM. Denies blood in stool. On admission CBC revealed WBC 1.4, ANC 400, WBC hemoglobin 11.9, platelets 199,000. Creatinine 0.34. Coags WNL. Troponins negative. Review of Systems 10 point ROS is negative except as stated in the HPI Past Medical History Past Medical History: Cancer, COPD, Eye Disorder Additional Past Medical History / Comment(s): MENINGITIS, 19 YRS OLD ovarian cyst burst., NO MEDS FOR COPD. , FLOATER RIGHT EYE., LEFT BREAST CANCER - pt had a recent PET scan that showed at spot that they wanted to check out for met s. History of Any Multi-Drug Resistant Organisms: None Reported Past Surgical History: Hysterectomy, Tonsillectomy Additional Past Surgical History / Comment(s): RUPTURED GRAFIAN FOLLICLE, HARITHA CATARACTS with lens implants mastecotomy march 2023 Past Anesthesia/Blood Transfusion Reactions: No Reported Reaction Additional Past Anesthesia/Blood Transfusion Reaction / Comm: HX OF BLOOD TRANSFUSION-NO REACTION Past Psychological History: Anxiety Smoking Status: Former smoker Past Alcohol Use History: Occasional Past Drug Use History: None Reported - Past Family History Father Family Medical History: Cancer Additional Family Medical History / Comment(s): PANCREATIC CANCER Brother(s) Family Medical History: Cancer, Thyroid Disorder Additional Family Medical History / Comment(s): STOMACH CANCER Medications and Allergies Home Medications Medication Instructions Recorded Confirmed Type Levothyroxine Sodium [Synthroid] 88 mcg PO DAILY 03/10/23 01/27/24 History ALPRAZolam [Xanax] 0.5 mg PO TID PRN 12/23/23 01/27/24 History Albuterol Sulfate [Ventolin HFA] 2 puff INHALATION RT-Q6H PRN 01/01/24 01/27/24 History Docusate [Colace] 100 mg PO BID cap 01/06/24 01/27/24 Rx polyethylene glycoL 3350 [Miralax] 17 gm PO DAILY PRN packet 01/06/24 01/27/24 Rx HYDROcodone/APAP 10-325MG [[place] 1 tab PO Q6HR 01/08/24 01/27/24 History 10-325] Allergies Allergy/AdvReac Type Severity Reaction Status Date / Time No Known Allergies Allergy Verified 01/27/24 18:45 Physical Exam Vitals: Vital Signs Temp Pulse Pulse Resp BP BP Pulse Ox 01/28/24 09:23 79 01/28/24 09:16 66 96 01/28/24 09:03 93 18 01/28/24 09:02 97.6 F 93 18 98/58 98 01/28/24 06:00 78 18 111/68 97 01/28/24 03:46 69 18 106/70 97 01/27/24 23:57 85 18 111/71 98 01/27/24 21:37 67 18 108/71 96 01/27/24 19:00 95/68 100 01/27/24 18:30 107/68 96 01/27/24 18:00 107/68 96 01/27/24 17:51 104/70 98 01/27/24 17:41 97.7 F 78 18 104/70 94 L Intake and Output 01/27/24 01/28/24 01/28/24 22:59 06:59 14:59 Other: Voiding Method Bedpan Weight 40.823 kg - Constitutional General appearance: no acute distress, thin - EENT Eyes: anicteric sclerae, EOMI ENT: hearing grossly normal - Respiratory Respiratory: left: diminished - Cardiovascular Rhythm: regular Heart sounds: normal: S1, S2 - Gastrointestinal mild distension General gastrointestinal: soft, no tenderness - Integumentary Integumentary: no cyanotic, no jaundiced - Musculoskeletal Musculoskeletal: generalized weakness, strength equal bilaterally - Psychiatric Psychiatric: A&O x's 3 Results CBC & Chem 7: 01/27/24 17:55 01/27/24 17:55 Labs: Abnormal Lab Results - Last 24 Hours (Table) 01/27/24 01/27/24 Range/Units 17:55 17:55 WBC 1.4 L* (3.8-10.6) k/uL RBC 3.55 L (3.80-5.40) m/uL Neutrophils # (Manual) 0.40 L* (1.3-7.7) k/uL Lymphocytes # (Manual) 0.66 L (1.0-4.8) k/uL Sodium 130 L (137-145) mmol/L Potassium 3.4 L (3.5-5.1) mmol/L Carbon Dioxide 21 L (22-30) mmol/L Creatinine 0.34 L (0.52-1.04) mg/dL Calcium 7.9 L (8.4-10.2) mg/dL Alkaline Phosphatase 170 H (38-126) U/L Total Protein 5.0 L (6.3-8.2) g/dL Albumin 2.9 L (3.5-5.0) g/dL Chest x-ray: report reviewed Assessment and Plan (1) Chest pain Current Visit: Yes Status: Acute Priority: High Code(s): R07.9 - CHEST PAIN, UNSPECIFIED SNOMED Code(s): 83390106 (2) Constipation Current Visit: Yes Status: Acute Priority: Medium Code(s): K59.00 - CONSTIPATION, UNSPECIFIED SNOMED Code(s): 08976455 (3) Pneumothorax Current Visit: Yes Status: Acute Priority: High Code(s): J93.9 - PNEUMOTHORAX, UNSPECIFIED SNOMED Code(s): 88220390 (4) Breast cancer, left Current Visit: Yes Status: Acute Priority: High Code(s): C50.912 - MALIGNANT NEOPLASM OF UNSPECIFIED SITE OF LEFT FEMALE BREAST SNOMED Code(s): 104644064 (5) Pleural effusion Current Visit: Yes Status: Acute Priority: High Code(s): J90 - PLEURAL EFFUSION, NOT ELSEWHERE CLASSIFIED SNOMED Code(s): 59094098 Plan: Metastatic, triple negative breast cancer -Full history in HPI. Most recently been on treatment with xeloda and keytruda -Unfortunately, left chest wall biopsy on 11/18/23 revealed invasive mammary ductal carcinoma. PET/CT on 12/03/2023 revealed disease progression with uptake within mediastinal and hilar lymph nodes, uptake within the liver, new osseous metastases including thoracic vertebral bodies and right ilium and left anterior rib. Persistent intense uptake in the distal sigmoid colon. Pleural fluid cytology unfortunately has returned positive for the same. -Patient started on palliative chemotherapy with Eribulin and completed cycle 1 on 01/21/2024. -Will schedule clinic f/u next week prior to proceeding to next cycle Recurrent pleural effusion, pnemothorax: -Due to recurrent effusions, left sided pleurx drain was placed on 01/14/24. Reporting increased left sided chest pain and SOB. On admission chest x-ray revealed redemonstration of vascular congestion with bilateral pleural effusions, increased on the right and decreased on the left, findings may be related to moderate to severe CHF. Development of moderate left sided pneumothorax, forming hydropneumothorax. -Pleurx drained on admission reporting improvement in breathing and CP. Cardiothoracic surgery consulted Dr lennonests: I have performed H&P and developed impression and plan of care for patient, discussed with dictator. I agree with dictated note, documented as a scribe
--- NOTE | 2024-01-29 10:27 | CDI ---
From: Blanca Constantino Phone: [phone] Admit Date: 01/27/2024 10:36:00 PM Patient Name: April Canchola Visit Number: [id number] Discharge Date: ATTENTION: The Clinical Documentation Specialists (CDI) and [facility] Coding Staff appreciate your assistance in clarifying documentation. Please respond to the clarification below the line at the bottom and electronically sign. The CDI & [facility] Coding staff will review the response and follow-up if needed. Please note: Queries are made part of the Legal Health Record. If you have any questions, please contact the author of this message via ITS. Dr. Katherine Hernandez: Your patient has the documented symptom of chest pain in the ED note 01/26. Additional clarification regarding the etiology/cause of this symptom is requested. History/Risk factors: Metastatic breast cancer, left recurrent pleural effusion with Pleurx catheter who presents with left sided chest pain and constipation Clinical Indicators: 01/26 Triage VS: 104/70, 97.7, 78, 18, 94% 2 liters nasal cannula 01/26 ED note, Clinical Impression: "Chest pain, Pneumothorax, Constipation" 01/27 Cardiothoracic Surgery consult, Assessment: "Left sided chest discomfort, constipation on admission." Plan: "chest pain is better." 01/27 Oncology consult, HPI: "PET/CT on 12/03/2023 revealed disease progression with uptake in mediastinal and hilar lymph nodes, uptake within the liver, new osseous metastases including thoracic vertebral bodies and right hilum and left anterior rib. Upon admission Pleurx was drained which has improved symptoms of shortness of breath and chest pain." 01/26, 01/27 x2 troponin: <0.012, <0.012, <0.012 01/26 Chest X Ray, Impression: " 1. Redemonstration of vascular congestion with bilateral pleural effusions, increased on the right and decreased on the left, status post placement of left basilar drainage tube, Findings may be related to moderate to severe CHF. 2. Development of moderate left sided pneumothorax, forming hydropneumothorax." Treatment: Monitor troponins, Chest X Ray Consult Cardiothoracic Surgery Pleurx drained on admission for 100cc in ED Normal Saline 500cc IV bolus once 01/26 Please provide additional clarification regarding the etiology/cause of the chest pain. [ ] Chest pain due to metastasis to left rib [ x] Chest pain due to recurrent metastatic pleural effusion [ ] Chest pain due to metastasis to left rib and recurrent metastatic pleural effusion [ ] Chest pain due to other condition, please specify [ ] Unable to determine MTDD
[2024-01-29 10:37] LABS: African American GFR (CKD) >90 (>60 ml/min/1.73 sqM); Anion Gap 2 mmol/L; Blood Urea Nitrogen 5 mg/dL (7-17); Calcium 8.1 mg/dL (8.4-10.2); Carbon Dioxide 29 mmol/L (22-30); Chloride 101 mmol/L (98-107); Glucose 101 mg/dL (74-99); Non-African American GFR(CKD) >90 (>60 ml/min/1.73 sqM); Sodium 132 mmol/L (137-145)
--- NOTE | 2024-01-29 10:47 | CDI ---
From: Blanca Constantino Phone: [phone] Admit Date: 01/27/2024 10:36:00 PM Patient Name: April Canchola Visit Number: [id number] Discharge Date: ATTENTION: The Clinical Documentation Specialists (CDI) and [facility] Coding Staff appreciate your assistance in clarifying documentation. Please respond to the clarification below the line at the bottom and electronically sign. The CDI & [facility] Coding staff will review the response and follow-up if needed. Please note: Queries are made part of the Legal Health Record. If you have any questions, please contact the author of this message via ITS. Dr. Zaheer Montemayor Patient has a documented BMI of 15.4 on 01/26. Additional clarification is requested. History/Risk Factors: Metastatic breast cancer, left recurrent pleural effusion with Pleurx catheter who presents with left sided chest pain and constipation Clinical Indicators: 01/26 ED note, General Exam, General appearance: "alert, cachectic" 01/26 Patients weight is 40.823kg Patients height is 5ft 4in Calculated BMI is 15.4 01/26 Total Protein: 5.0 Albumin: 2.9 Treatments: Healthy Heart diet Please clarify, is there is an additional diagnosis that is clinically appropriate for this patient? [ x] Cachexia [ ] Malnutrition, (further specify severity and type) [ ] No additional diagnosis/not clinically significant [ ] Other, please specify [ ] Unable to determine MTDD
[2024-01-29 11:02] LABS: HCT 36.3 % (34.0-46.0); MCV 100.1 fL (80.0-100.0); Macrocytosis Slight; Mean Platelet Volume 8.4; Platelet Count 215 k/uL (150-450); RBC 3.63 m/uL (3.80-5.40); RDW 14.2 % (11.5-15.5); WBC 1.9 k/uL (3.8-10.6)
[2024-01-29 13:03] LABS: Band Neutrophils % 2 %; Lymphocytes # (M) 0.89 k/uL (1.0-4.8); Metamyelocytes # (M) 0.02 k/uL (0); Metamyelocytes % 1 %; Monocytes # (M) 0.48 k/uL (0-1.0); Myelocytes # (M) 0.02 k/uL (0); Myelocytes % 1 %; Neutrophils % (M) 26 %; Nucleated Red Blood Cells 0 /100 WBC (0-0); Total Cells Counted 200
--- NOTE | 2024-01-29 14:27 | P.PN ---
Subjective Progress Note Date: 01/29/24 patient is a 68-year-old lady with past medical history significant for metastatic breast cancer, recurrent left pleural effusion s/p Pleurx cath placement who presented to the ER for complaint of chest pain and constipation. Patient was recently admitted in the hospital in the beginning of the month. At the time because of recurrent pleural effusions patient patient had Pleurx catheter placed. Patient has been draining the Pleurx catheter at home. Patient has been complaining of left-sided chest pain for the last few days. Chest pain is intermittent, nonradiating, no aggravating or relieving factor associated with chest pain. Patient also been complaining of constipation and abdominal pain. Abdominal pain is generalized, intermittent and crampy in nature. There is no current nausea or vomiting. Denies any blood in the stools. Because of the symptoms, patient came to the ER Initial lab work done in the ER showed WBC 1.4, hemoglobin 9.9 platelet count 199, sodium 130, potassium 3.4, BUN 8, creatinine 0.34 alk phos 170 Pro-Patric 0.05 EKG done in the ER showed heart rate of , no ST segment elevation or depression seen, no T-wave inversions seen. Chest x-ray done in the ER showed redemonstration of vascular congestion with bilateral pleural effusions, increased on the right Patient admitted to internal medicine service ' 01/28. Patient seen and examined. Blood work done this morning showed WBC 1.9, hemoglobin 12, platelet count 215, sodium 132, potassium 4, BUN 5, creatinine 0.38. CT surgery evaluated the patient, recommended continuing drainage through the Pleurx catheter, no surgical intervention. REVIEW OF SYSTEMS: CONSTITUTIONAL: No fever, no malaise,. CARDIOVASCULAR: No chest pain, no palpitations, no syncope. PULMONARY: No shortness of breath, no cough, GASTROINTESTINAL: No diarrhea, no nausea, no vomiting, no abdominal pain. NEUROLOGICAL: No headaches, no weakness, PHYSICAL EXAMINATION: GENERAL: The patient is alert and oriented x3, not in any acute distress. Well developed, well nourished. HEENT: Pupils are round and equally reacting to light. EOMI. No scleral icterus. No conjunctival pallor. Normocephalic, atraumatic. No pharyngeal erythema. No thyromegaly. CARDIOVASCULAR: S1 and S2 present. No murmurs, rubs, or gallops. PULMONARY: Chest is clear to auscultation, no wheezing or crackles. ABDOMEN: Soft, nontender, nondistended, normoactive bowel sounds. No palpable organomegaly. MUSCULOSKELETAL: No joint swelling or deformity. EXTREMITIES: No cyanosis, clubbing, or pedal edema. NEUROLOGICAL: Gross neurological examination did not reveal any focal deficits. SKIN: No rashes. Assessment and plan Chest pain due to recurrent metastatic pleural effusion Abdominal pain Constipation Leukopenia Hyponatremia Hypokalemia Metastatic breast cancer Recurrent left pleural effusion s/p Pleurx catheter placement COPD Chronic and ongoing tobacco dependence History of meningitis History of an ovarian cyst Cachexia Monitor vital signs Monitor CBC Monitor CMP Continue telemetry monitoring Trend troponins. Continue pain management Aggressive bowel regimen Hematology oncology following CT surgery evaluated, recommended intermittent drainage through the Pleurx catheter, no surgical intervention Labs and medication were reviewed.. Continue same treatment. Continue with symptomatic treatment. Resume home medication. Monitor labs and vitals. DVT and GI prophylaxis. Further recommendations as per clinical course of the patient Dictation was produced using [employer] dictation software. please excuse any grammatical, word or spelling errors. Objective - Vital Signs Vital signs: Vital Signs Temp 98.3 F 01/29/24 08:00 Pulse 72 01/29/24 08:00 Resp 18 01/29/24 08:00 BP 97/62 01/29/24 08:00 Pulse Ox 96 01/29/24 08:00 FiO2 Intake & Output 01/28/24 01/29/24 01/29/24 18:59 06:59 18:59 Intake Total 200 360 Balance 200 360 Weight 40.823 kg Intake: Oral 200 360 Other: Voiding Method Bedpan # Voids 1 1 1 # Bowel Movements 1 - Labs CBC & Chem 7: 01/29/24 09:29 01/29/24 09:29 Labs: Abnormal Lab Results - Last 24 Hours (Table) 01/29/24 01/29/24 Range/Units 09: 09:29 WBC 1.9 L (3.8-10.6) k/uL RBC 3.63 L (3.80-5.40) m/uL MCV 100.1 H (80.0-100.0) fL Neutrophils # (Manual) 0.50 L (1.3-7.7) k/uL Lymphocytes # (Manual) 0.89 L (1.0-4.8) k/uL Metamyelocytes # (Man) 0.02 H (0) k/uL Myelocytes # (Manual) 0.02 H (0) k/uL Sodium 132 L (137-145) mmol/L BUN 5 L (7-17) mg/dL Creatinine 0.38 L (0.52-1.04) mg/dL Glucose 101 H (74-99) mg/dL Calcium 8.1 L (8.4-10.2) mg/dL
[2024-01-29 17:03] VITALS: BMI 15.4
--- NOTE | 2024-01-29 18:45 | P.PN ---
Subjective Progress Note Date: 01/29/24 No acute events. Patient resting company in bed. Patient is reporting improvement and shortness of breath and left-sided chest pain. SpO2 96% on 2 L nasal cannula. Patient had a large BM yesterday and reports significant improvement in abdominal discomfort. CBC today showing, WBC 1.9, hemoglobin 12.0, platelets 215,000. Objective - Vital Signs Vital signs: Vital Signs Temp 98.3 F 01/29/24 08:00 Pulse 72 01/29/24 14:00 Resp 18 01/29/24 14:00 BP 100/64 01/29/24 12:00 Pulse Ox 95 01/29/24 12:00 FiO2 Intake & Output 01/28/24 01/29/24 01/29/24 18:59 06:59 18:59 Intake Total 200 360 Balance 200 360 Weight 40.823 kg 40.823 kg Intake: Oral 200 360 Other: Voiding Method Bedpan # Voids 1 1 1 # Bowel Movements 1 - Constitutional General appearance: Present: no acute distress, thin - EENT Eyes: Present: anicteric sclerae ENT: Present: hearing grossly normal - Respiratory Details: breathing is even and unlabored - Cardiovascular Details: skin warm and dry - Gastrointestinal General gastrointestinal: Present: soft. Absent: tenderness - Neurologic Neurologic Comment(s): no focal deficits - Musculoskeletal Musculoskeletal: Present: strength equal bilaterally - Psychiatric Psychiatric: Present: A&O x's 3 - Labs CBC & Chem 7: 01/29/24 09:29 01/29/24 09:29 Labs: Abnormal Lab Results - Last 24 Hours (Table) 01/29/24 01/29/24 Range/Units 09: 09:29 WBC 1.9 L (3.8-10.6) k/uL RBC 3.63 L (3.80-5.40) m/uL MCV 100.1 H (80.0-100.0) fL Neutrophils # (Manual) 0.50 L (1.3-7.7) k/uL Lymphocytes # (Manual) 0.89 L (1.0-4.8) k/uL Metamyelocytes # (Man) 0.02 H (0) k/uL Myelocytes # (Manual) 0.02 H (0) k/uL Sodium 132 L (137-145) mmol/L BUN 5 L (7-17) mg/dL Creatinine 0.38 L (0.52-1.04) mg/dL Glucose 101 H (74-99) mg/dL Calcium 8.1 L (8.4-10.2) mg/dL Assessment and Plan (1) Chest pain Current Visit: Yes Status: Acute Priority: High Code(s): R07.9 - CHEST PAIN, UNSPECIFIED SNOMED Code(s): 36447179 (2) Constipation Current Visit: Yes Status: Acute Priority: Medium Code(s): K59.00 - CONSTIPATION, UNSPECIFIED SNOMED Code(s): 29465832 (3) Pneumothorax Current Visit: Yes Status: Acute Priority: High Code(s): J93.9 - PNEUMOTHORAX, UNSPECIFIED SNOMED Code(s): 99202865 (4) Breast cancer, left Current Visit: Yes Status: Acute Priority: High Code(s): C50.912 - LUCILA GNANT NEOPLASM OF UNSPECIFIED SITE OF LEFT FEMALE BREAST SNOMED Code(s): 222622663 (5) Pleural effusion Current Visit: Yes Status: Acute Priority: High Code(s): J90 - PLEURAL EFFUSION, NOT ELSEWHERE CLASSIFIED SNOMED Code(s): 03970543 Plan: Metastatic, triple negative breast cancer -Full history in HPI. Most recently been on treatment with xeloda and keytruda -Unfortunately, left chest wall biopsy on 11/18/23 revealed invasive mammary ductal carcinoma. PET/CT on 12/03/2023 revealed disease progression with uptake within mediastinal and hilar lymph nodes, uptake within the liver, new osseous metastases including thoracic vertebral bodies and right ilium and left anterior rib. Persistent intense uptake in the distal sigmoid colon. Pleural fluid cytology unfortunately has returned positive for the same. -Patient started on palliative chemotherapy with Eribulin and completed cycle 1 on 01/21/2024. -Will schedule hospital f/u Constipation: -Ongoing since last admission, despite use of miralax and colace daily. Tried citrate of magnesium, caused N/V. Had large BM yesterday, reporting ssignificant improvement in symptoms -Bowel regimen discussed in detail Recurrent pleural effusion, pnemothorax: -Due to recurrent effusions, left sided pleurx drain was placed on 01/14/24. Reporting increased left sided chest pain and SOB. On admission chest x-ray revealed redemonstration of vascular congestion with bilateral pleural effusions, increased on the right and decreased on the left, findings may be related to moderate to severe CHF. Development of moderate left sided pneumo thorax, forming hydropneumothorax. -Pleurx drained on admission, reporting improvement in breathing and CP. Cardiothoracic surgery consulted, no plan for intervention at this time, recommend continuing draining pleurx 2-3 days a week
[2024-01-29] MEDS: polyethylene glycoL 3350 17 GM POWD.PACK PO SCH (20:41)
[2024-01-30 11:27] VITALS: TEMP 98.7
[2024-01-30 12:36] VITALS: BP 110/62; PULSE 56; RESP 17
--- NOTE | 2024-01-30 13:47 | P.DS ---
Providers Date of admission: 01/27/24 22:36 Expected date of discharge: 01/30/24 Attending physician: Katherine Hernandez Consults: 01/27/24 22:29 Consult Physician Routine Consulting Provider: Regina Ledesma Consult Reason/Comments: your patient Do you want consulting provider notified?: Yes Consult Physician Routine Consulting Provider: Tony Lazar Consult Reason/Comments: hydropneumothorax. your patient Do you want consulting provider notified?: Yes Primary care physician: Roney Lema [facility] Course: Discharge diagnoses; Chest pain due to recurrent metastatic pleural effusion Abdominal pain Constipation Leukopenia Hyponatremia Hypokalemia Metastatic breast cancer Recurrent left pleural effusion s/p Pleurx catheter placement COPD Chronic and ongoing tobacco dependence History of meningitis History of an ovarian cyst Cachexia Hospital course; patient is a 68-year-old lady with past medical history significant for metastatic breast cancer, recurrent left pleural effusion s/p Pleurx cath placement who presented to the ER for complaint of chest pain and constipation. Patient was recently admitted in the hospital in the beginning of the month. At the time because of recurrent pleural effusions patient patient had Pleurx catheter placed. Patient has been draining the Pleurx catheter at home. Patient has been complaining of left-sided chest pain for the last few days. Chest pain is intermittent, nonradiating, no aggravating or relieving factor associated with chest pain. Patient also been complaining of constipation and abdominal pain. Abdominal pain is generalized, intermittent and crampy in nature. There is no current nausea or vomiting. Denies any blood in the stools. Because of the symptoms, patient came to the ER Initial lab work done in the ER showed WBC 1.4, hemoglobin 9.9 platelet count 199, sodium 130, potassium 3.4, BUN 8, creatinine 0.34 alk phos 170 Pro-Patric 0.05 EKG done in the ER showed heart rate of , no ST segment elevation or depression seen, no T-wave inversions seen. Chest x-ray done in the ER showed redemonstration of vascular congestion with bilateral pleural effusions, increased on the right Patient admitted to internal medicine service ' 01/28. Patient seen and examined. Blood work done this morning showed WBC 1.9, hemoglobin 12, platelet count 215, sodium 132, potassium 4, BUN 5, creatinine 0.38. CT surgery evaluated the patient, recommended continuing drainage through the Pleurx catheter, no surgical intervention. 01/29. Patient seen and examined. No acute issues overnight. Patient keen to be discharged home. Being discharged stable condition PHYSICAL EXAMINATION: GENERAL: The patient is alert and oriented x3, not in any acute distress. Chronically ill looking HEENT: Pupils are round and equally reacting to light. EOMI. No scleral icterus. No conjunctival pallor. Normocephalic, atraumatic. No pharyngeal erythema. No thyromegaly. CARDIOVASCULAR: S1 and S2 present. No murmurs, rubs, or gallops. PULMONARY: Chest is clear to auscultation, no wheezing or crackles. Left-sided Pleurx catheter seen ABDOMEN: Soft, nontender, nondistended, normoactive bowel sounds. No palpable organomegaly. MUSCULOSKELETAL: No joint swelling or deformity. EXTREMITIES: No cyanosis, clubbing, or pedal edema. NEUROLOGICAL: Gross neurological examination did not reveal any focal deficits. SKIN: No rashes. Dictation was produced using [employer] dictation software. please excuse any grammatical, word or spelling errors. Patient Condition at Discharge: Fair Plan - Discharge Summary Discharge Rx Participant: No New Discharge Prescriptions: Continue Levothyroxine Sodium [Synthroid] 88 mcg PO DAILY ALPRAZolam [Xanax] 0.5 mg PO TID PRN PRN Reason: anxiety Albuterol Sulfate [Ventolin HFA] 2 puff INHALATION RT-Q6H PRN PRN Reason: Shortness Of Breath Or Wheezing Docusate [Colace] 100 mg PO BID cap polyethylene glycoL 3350 [Miralax] 17 gm PO DAILY PRN packet PRN Reason: Constipation HYDROcodone/APAP 10-325MG [[place] 10-325] 1 tab PO Q6HR Discharge Medication List Levothyroxine Sodium [Synthroid] 88 mcg PO DAILY 03/10/23 [History] ALPRAZolam [Xanax] 0.5 mg PO TID PRN 12/23/23 [History] Albuterol Sulfate [Ventolin HFA] 2 puff INHALATION RT-Q6H PRN 01/01/24 [History] Docusate [Colace] 100 mg PO BID cap 01/06/24 [Rx] polyethylene glycoL 3350 [Miralax] 17 gm PO DAILY PRN packet 01/06/24 [Rx] HYDROcodone/APAP 10-325MG [[place] 10-325] 1 tab PO Q6HR 01/08/24 [History] Follow up Appointment(s)/Referral(s): [facility], [NON-STAFF] - As Needed Roney Lema DO [Primary Care Provider] - 1-2 days Tony Lazar MD [STAFF PHYSICIAN] - As Needed (Please call our office for pleurx catheter removal once drainage is less than 50 mL for 3 times in a row) Patient Instructions/Handouts: Chest Pain (ED) Activity/Diet/Wound Care/Special Instructions: Pleurx Discharge Instructions: 1. Home Care is ordered, they will obtain new bottles. 2. May shower, no tub baths/hot tubs. 3. Do not drain more than 1 liter or 1000 mL in 24 hours. 4. New drainage bottle needed with each drainage. 5. Drainage frequency dictated by patient symptoms, may be every day, every other day, weekly, or however often the patient is symptomatic. 6. Please notify TRAUMA DOCTOR or office if temperature >101F, excessive pain at insertion site, drainage consistency changes to cloudy or smells bad, catheter falls out, or anything else that concerns you. 7. Contact surgery office with weekly drainage amounts. May fax the amounts. 8. Once drainage is less than 50 mL three times in a row, notify the surgery office for possible removal. Surgery office: , fax Discharge Disposition: HOME SELF-CARE
== END 2024-01-30 14:25 | disposition home or self-care (01) | DRG 598 ==
LOC: EC 17:37 → 3SCARD 22:36
PROVIDERS: ADMIT Hospitalist; ATTEND Hospitalist
DX: C50.912 Malignant neoplasm of unspecified site of left female breast (principal); C79.51 Secondary malignant neoplasm of bone; E87.1 Hypo-osmolality and hyponatremia; J93.9 Pneumothorax, unspecified; J91.0 Malignant pleural effusion; Z68.1 Body mass index [BMI] 19.9 or less, adult; R64 Cachexia; D72.819 Decreased white blood cell count, unspecified; E87.6 Hypokalemia; J44.9 Chronic obstructive pulmonary disease, unspecified; F17.210 Nicotine dependence, cigarettes, uncomplicated; F41.9 Anxiety disorder, unspecified; K59.00 Constipation, unspecified; Z17.1 Estrogen receptor negative status [ER-]; Z96.1 Presence of intraocular lens; Z98.42 Cataract extraction status, left eye; Z98.41 Cataract extraction status, right eye
CPT/HCPCS: 36415; 71045; 71046; 80048; 80053; 83735; 83880; 84145; 84484; 85025; 85610; 85730; 93005; 94640; 94760; 96361; 96374; 96375; 99285

== ENCOUNTER 2024-02-15 04:19 | Emergency (ER) | payer MEDICARE, OTHER ==
--- NOTE | 2024-02-15 04:56 | ED ---
General Adult HPI - General Chief complaint: Headache Stated complaint: Headache Time Seen by Provider: 02/15/24 04:35 Source: patient, EMS Mode of arrival: EMS Limitations: no limitations - History of Present Illness Initial comments: Dictation was produced using [employer] dictation software. please excuse any grammatical, word or spelling errors. Chief Complaint: 68-year-old female presents to the ER for headache History of Present Illness: Patient 68-year-old female presents to the emergency department for acute headache. Patient states she gets headaches around the time around her chemotherapy. Patient states that her headache feels like her usual headaches. She takes [place] for headaches at home. She has primary breast cancer. She states that there is no known spread to her brain. She states she had a recent PET scan that was unchanged. Denies any vision changes. No nausea vomiting diarrhea. No extremity symptoms. Denies any fever or neck symptoms. Patient brought in by EMS. She was given morphine prior to arrival. She states that the morphine helped however she can still notice some symptoms. The ROS documented in this emergency department record has been reviewed and confirmed by me. Those systems with pertinent positive or negative responses have been documented in the HPI. All other systems are other negative and/or noncontributory. - Related Data Home Medications Medication Instructions Recorded Confirmed Levothyroxine Sodium [Synthroid] 88 mcg PO DAILY 03/10/23 02/10/24 ALPRAZolam [Xanax] 0.5 mg PO TID PRN 12/23/23 02/10/24 Albuterol Sulfate [Ventolin HFA] 2 puff INHALATION RT-Q6H PRN 01/01/24 02/10/24 HYDROcodone/APAP 10-325MG [[place] 1 tab PO Q6HR 01/08/24 02/10/24 10-325] Previous Rx's Medication Instructions Recorded Docusate [Colace] 100 mg PO BID cap 01/06/24 polyethylene glycoL 3350 [Miralax] 17 gm PO DAILY PRN packet 01/06/24 Allergies Allergy/AdvReac Type Severity Reaction Status Date / Time No Known Allergies Allergy Verified 02/15/24 04:30 Review of Systems ROS Statement: Those systems with pertinent positive or pertinent negative responses have been documented in the HPI. ROS Other: All systems not noted in ROS Statement are negative. Past Medical History Past Medical History: Cancer, COPD, Eye Disorder Additional Past Medical History / Comment(s): MENINGITIS, 19 YRS OLD ovarian cyst burst., NO MEDS FOR COPD. , FLOATER RIGHT EYE., LEFT BREAST CANCER - pt had a recent PET scan that showed at spot that they wanted to check out for mets. Recurrent left-sided pleural effusion History of Any Multi-Drug Resistant Organisms: None Reported Past Surgical History: Hysterectomy, Tonsillectomy Additional Past Surgical History / Comment(s): RUPTURED GRAFIAN FOLLICLE, HARITHA CATARACTS with lens implants mastecotomy march 2023; left-sided Pleurx catheter placed January 14, 2024 Past Anesthesia/Blood Transfusion Reactions: No Reported Reaction Additional Past Anesthesia/Blood Transfusion Reaction / Comment(s): HX OF BLOOD TRANSFUSION-NO REACTION Past Psychological History: Anxiety Smoking Status: Former smoker Past Alcohol Use History: None Reported Past Drug Use History: None Reported - Past Family History Father History Unknown: Yes Family Medical History: Cancer Additional Family Medical History / Comment(s): PANCREATIC CANCER Brother(s) History Unknown: Yes Family Medical History: Cancer, Thyroid Disorder Additional Family Medical History / Comment(s): STOMACH CANCER General Exam - General Exam Comments Initial Comments: PHYSICAL EXAM: General Impression: Alert and oriented x3, not in acute distress HEENT: Normocephalic atraumatic, extra-ocular movements intact, pupils equal and reactive to light bilaterally, mucous membranes moist. Cardiovascular: Heart regular rate and rhythm Chest: Able to complete full sentences, no retractions, no tachypnea Abdomen: abdomen soft, non-tender, non-distended, no organomegaly Musculoskeletal: Pulses present and equal in all extremities, no peripheral edema Motor: no focal deficits noted Neurological: CN II-XII grossly intact, no focal motor or sensory deficits noted Skin: Intact with no visualized rashes Psych: Normal affect and mood Limitations: no limitations Course Vital Signs 02/15/24 02/15/24 02/15/24 04:25 05:08 05:30 Temperature 98.6 F Pulse Rate 88 81 82 Respiratory 18 18 16 Rate Blood Pressure 103/71 111/68 103/64 O2 Sat by Pulse 98 99 98 Oximetry 02/15/24 06:00 Temperature Pulse Rate 88 Respiratory 18 Rate Blood Pressure 102/66 O2 Sat by Pulse 97 Oximetry Medical Decision Making - Medical Decision Making Was pt. sent in by a medical professional or institution (GISELA Edward, MOVIE THEATER MANAGER, urgent care, hospital, or skilled nursing...) When possible be specific @ -No Did you speak to anyone other than the patient for history (EMS, parent, family, police, friend...)? What history was obtained from this source @ -No Did you review nursing and triage notes (agree or disagree)? Why? @ -I reviewed and agree with nursing and triage notes Were old charts reviewed (outside hosp., previous admission, EMS record, old EKG, old radiological studies, urgent care reports/EKG's, skilled nursing records)? Report findings @ -No old charts were reviewed Differential Diagnosis (chest pain, altered mental status, abdominal pain women, abdominal pain men, vaginal bleeding, musculoskeletal, weakness, fever, dyspnea, syncope, headache, dizziness, GI bleed, back pain, seizure, CVA, palpatations, mental health)? @ -Differential Headache: Migraine, tension, cluster, carbon monoxide, central venous thrombosis, pension karma temporal arteritis, acute closure glaucoma, intercranial hemorrhage, mas toiditis, sinusitis, head injury, this is not meant to be an all-inclusive list. EKG interpreted by me (3pts min.). @ -None done X-rays interpreted by me (1pt min.). @ -None done CT interpreted by me (1pt min.). @ -None done U/S interpreted by me (1pt. min.). @ -None done What testing was considered but not performed or refused? (CT, X-rays, U/S, labs)? Why? @ -None What meds were considered but not given or refused? Why? @ -None Did you discuss the management of the patient with other professionals (professionals i.e. GISELA Edward, MOVIE THEATER MANAGER, lab, RT, psych nurse, social services counselor, radiology specialist, teacher, chief sustainability officer, showcase trimmer)? Give summary @ -No Was smoking cessation discussed for >3mins.? @ -No Was critical care preformed (if so, how long)? @ -No Were there social determinants of health that impacted care today? How? (Homelessness, low income, unemployed, alcoholism, drug addiction, trans portation, low edu. Level, literacy, decrease access to med. care, usp, rehab)? @ -No Was there de-escalation of care discussed even if they declined (Discuss DNR or withdrawal of care, Hospice)? DNR status @ -No What co-morbidities impacted this encounter? (DM, HTN, Smoking, COPD, CAD, Cancer, CVA, ARF, Chemo, Hep., AIDS, mental health diagnosis, sleep apnea, morbid obesity)? @ -None Was patient admitted / discharged? Hospital course, mention meds given and route, prescriptions, significant lab abnormalities, going to OR and other pertinent info. @ -68-year-old female presents emergency department for acute headache. Patient well-appearing states that her headaches is typical of her usual headaches. Vital signs upon arrival are within acceptable limits. Neurologic exam is unremarkable. Laboratory evaluation shows leukopenia of 0.6. Rest of labs within acceptable limits. Patient given headache cocktail with improvement of symptoms. Patient denies any fever chills or night sweats or any constitutional symptoms. Patient agreeable for discharge told to follow-up with primary care doctor. Undiagnosed new problem with uncertain prognosis? @ -No Drug Therapy requiring intensive monitoring for toxicity (Heparin, Nitro, Insulin, Cardizem)? @ -No Were any procedures done? @ -No Diagnosis/symptom? Acute, or Chronic, or Acute on Chronic? Uncomplicated (without systemic symptoms) or Complicated (systemic symptoms)? @ -Headache, no high risk features Side effects of treatment? @ -No Exacerbation, Progression, or Severe Exacerbation? @ -No Poses a threat to life or bodily function? How? (Chest pain, [place], [place], pneumonia, PE, COPD, DKA, ARF, appy, cholecystitis, CVA, Diverticulitis, Homicidal, Suicidal, threat to staff... and all critical care pts) @ -No - Lab Data Result diagrams: 02/15/24 04:51 02/15/24 04:51 Lab Results 02/15/24 02/15/24 Range/Units 04:51 04:51 WBC 0.6 L* (3.8-10.6) k/uL RBC 3.50 L (3.80-5.40) m/uL Hgb 11.7 (11.4-16.0) gm/dL Hct 34.2 (34.0-46.0) % MCV 97.8 (80.0-100.0) fL MCH 33.6 (25.0-35.0) pg MCHC 34.4 (31.0-37.0) g/dL RDW 13.9 (11.5-15.5) % Plt Count 132 L (150-450) k/uL MPV 8.3 Neutrophils # M[employer]IE THEATER MANAGER Manual Slide Review Performed Sodium 132 L (137-145) mmol/L Potassium 3.8 (3.5-5.1) mmol/L Chloride 103 (98-107) mmol/L Carbon Dioxide 25 (22-30) mmol/L Anion Gap 4 mmol/L BUN 8 (7-17) mg/dL Creatinine 0.31 L (0.52-1.04) mg/dL Est GFR (CKD-EPI)AfAm >90 (>60 ml/min/1.73 sqM) Est GFR (CKD-EPI)NonAf >90 (>60 ml/min/1.73 sqM) Glucose 99 (74-99) mg/dL Calcium 8.4 (8.4-10.2) mg/dL Disposition Clinical Impression: Headache Disposition: HOME SELF-CARE Condition: Good Instructions (If sedation given, give patient instructions): Acute Headache (ED) Is patient prescribed a controlled substance at d/c from ED?: No Referrals: Roney Lema DO [Primary Care Provider] - 1-2 days Time of Disposition: 06:08
[2024-02-15 05:02] VITALS: TEMP 98.6
[2024-02-15] MEDS: ONDANSETRON 4 MG/2 ML VIAL IVP STA (05:03)
[2024-02-15] MEDS: SODIUM CHLORIDE 0.9% 1,000 ML IV STA (05:03)
[2024-02-15] MEDS: diphenhydrAMINE 50 MG/ML 1 ML VIAL IVP STA (05:03)
[2024-02-15] MEDS: KETOROLAC 15 MG/ML 1 ML VIAL IVP STA (05:03)
[2024-02-15 05:28] LABS: African American GFR (CKD) >90 (>60 ml/min/1.73 sqM); Anion Gap 4 mmol/L; Blood Urea Nitrogen 8 mg/dL (7-17); Calcium 8.4 mg/dL (8.4-10.2); Carbon Dioxide 25 mmol/L (22-30); Chloride 103 mmol/L (98-107); Glucose 99 mg/dL (74-99); Non-African American GFR(CKD) >90 (>60 ml/min/1.73 sqM); Potassium 3.8 mmol/L (3.5-5.1); Sodium 132 mmol/L (137-145)
[2024-02-15 05:36] LABS: HCT 34.2 % (34.0-46.0); HGB 11.7 gm/dL (11.4-16.0); MCH 33.6 pg (25.0-35.0); MCHC 34.4 g/dL (31.0-37.0); MCV 97.8 fL (80.0-100.0); Mean Platelet Volume 8.3; Platelet Count 132 k/uL (150-450); RDW 13.9 % (11.5-15.5)
[2024-02-15 05:46] LABS: WBC 0.6 k/uL (3.8-10.6)
[2024-02-15 06:20] VITALS: PULSE 88
[2024-02-15 08:22] VITALS: BP 104/66; RESP 20
== END 2024-02-15 07:42 | disposition home or self-care (01) ==
LOC: EC 04:19
DX: R51.9 Headache, unspecified (principal); Z87.891 Personal history of nicotine dependence
CPT/HCPCS: 36415; 80048; 85025; 99284; 96374; 96375 ×2; 96361; J1200; J2405; J1885

== ENCOUNTER 2024-02-23 20:08 | Inpatient (IN) | payer MEDICARE, OTHER ==
--- NOTE | 2024-02-23 21:15 | ED ---
Abdominal Pain HPI - General Chief Complaint: Abdominal Pain Stated Complaint: Abd Pain Time Seen by Provider: 02/23/24 20:22 Source: EMS, RN notes reviewed, old records reviewed Mode of arrival: EMS Limitations: no limitations - History of Present Illness Initial Comments: This is a 60-year-old female with severe debility, patient has significant cance r with decreased activity level decreased eating and drinking coming in for diminished bowel movements today. Patient states she has not had a bowel movement in a few days now going on a week. She feels very weak with decreased appetite decreased intake no change in breathing or shortness of breath no fevers. MD Complaint: abdominal pain, other (Nausea no vomiting) -: days(s) (6) Location: diffuse, epigastric Radiation: epigastric Migration to: suprapubic Severity: moderate Severity scale (1-10): 5 Quality: stabbing, aching Consistency: intermittent Improves With: nothing Worsens With: nothing Associated Symptoms: nausea, constipation Treatments Prior to Arrival: other (0) - Related Data Home Medications Medication Instructions Recorded Confirmed ALPRAZolam [Xanax] 0.5 mg PO TID PRN 12/23/23 02/24/24 Albuterol Sulfate [Ventolin HFA] 2 puff INHALATION RT-Q6H PRN 01/01/24 02/24/24 HYDROcodone/APAP 10-325MG [[place] 1 tab PO Q6HR 01/08/24 02/24/24 10-325] Docusate [Colace] 200 mg PO BID 02/24/24 02/24/24 Levothyroxine Sodium [Synthroid] 125 mcg PO DAILY 02/24/24 02/24/24 polyethylene glycoL 3350 [Miralax] 17 gm PO BID PRN 02/24/24 02/24/24 Previous Rx's Medication Instructions Recorded OLANZapine [ZyPREXA] 2.5 mg PO HS #30 tab 03/01/24 Allergies Allergy/AdvReac Type Severity Reaction Status Date / Time No Known Allergies Allergy Verified 02/24/24 07:47 Review of Systems ROS Statement: Those systems with pertinent positive or pertinent negative responses have been documented in the HPI. ROS Other: All systems not noted in ROS Statement are negative. Past Medical History Past Medical History: Cancer, COPD, Eye Disorder Additional Past Medical History / Comment(s): MENINGITIS, 19 YRS OLD ovarian cyst burst., NO MEDS FOR COPD. , FLOATER RIGHT EYE., LEFT BREAST CANCER - pt had a recent PET scan that showed at spot that they wanted to check out for mets. Recurrent left-sided pleural effusion History of Any Multi-Drug Resistant Organisms: None Reported Past Surgical History: Hysterectomy, Tonsillectomy Additional Past Surgical History / Comment(s): RUPTURED GRAFIAN FOLLICLE, HARITHA CATARACTS with lens implants mastecotomy march 2023; left-sided Pleurx catheter placed January 14, 2024 Past Anesthesia/Blood Transfusion Reactions: No Reported Reaction Additional Past Anesthesia/Blood Transfusion Reaction / Comment(s): HX OF BLOOD TRANSFUSION-NO REACTION Past Psychological History: Anxiety Smoking Status: Former smoker Past Alcohol Use History: None Reported Past Drug Use History: None Reported - Past Family History Father History Unknown: Yes Family Medical History: Cancer Additional Family Medical History / Comment(s): PANCREATIC CANCER Brother(s) History Unknown: Yes Family Medical History: Cancer, Thyroid Disorder Additional Family Medical History / Comment(s): STOMACH CANCER General Exam General appearance: alert, in no apparent distress Head exam: Present: atraumatic, normocephalic, normal inspection Eye exam: Present: normal appearance, PERRL, EOMI. Absent: scleral icterus, conjunctival injection, periorbital swelling ENT exam: Present: normal exam, mucous membranes moist Neck exam: Present: normal inspection. Absent: tenderness, meningismus, lymphadenopathy Respiratory exam: Present: normal lung sounds bilaterally. Absent: respiratory distress, wheezes, rales, rhonchi, stridor Cardiovascular Exam: Present: regular rate, normal rhythm, normal heart sounds. Absent: systolic murmur, diastolic murmur, rubs, gallop, clicks GI/Abdominal exam: Present: soft, normal bowel sounds. Absent: distended, tenderness, guarding, rebound, rigid Extremities exam: Present: normal inspection, full ROM, normal capillary refill. Absent: tenderness, pedal edema, joint swelling, calf tenderness Back exam: Present: normal inspection Neurological exam: Present: alert, oriented X3, CN II-XII intact Psychiatric exam: Present: normal affect, normal mood Skin exam: Present: warm, dry, intact, normal color. Absent: rash Course Vital Signs 02/23/24 02/23/24 02/23/24 20:35 23:12 23:20 Temperature 97.7 F Pulse Rate 85 89 94 Respiratory 18 Rate Blood Pressure 102/67 O2 Sat by Pulse 98 Oximetry 02/24/24 02/24/24 02/24/24 00:34 05:02 06:34 Temperature Pulse Rate 89 85 80 Respiratory 18 20 20 Rate Blood Pressure 112/72 111/70 98/65 O2 Sat by Pulse 94 L 95 95 Oximetry 02/24/24 02/24/24 02/24/24 07:48 08:00 08:06 Temperature Pulse Rate 82 84 105 H Respiratory 16 16 20 Rate Blood Pressure 105/73 O2 Sat by Pulse 95 91 L Oximetry 02/24/24 02/24/24 02/24/24 09:56 11:48 12:12 Temperature Pulse Rate 100 100 91 Respiratory 20 20 20 Rate Blood Pressure 102/81 93/60 O2 Sat by Pulse 94 L 93 L Oximetry 02/24/24 02/24/24 02/24/24 12:21 14:00 15:32 Temperature Pulse Rate 91 118 H 98 Respiratory 20 20 18 Rate Blood Pressure 90/60 O2 Sat by Pulse 92 L Oximetry 02/24/24 02/24/24 02/24/24 15:38 16:14 17:18 Temperature Pulse Rate 100 110 H 98 Respiratory 20 22 Rate Blood Pressure 98/64 97/77 O2 Sat by Pulse 91 L 92 L Oximetry 02/24/24 18:19 Temperature 98.0 F Pulse Rate 88 Respiratory 21 Rate Blood Pressure 88/56 O2 Sat by Pulse 97 Oximetry - Reevaluation(s) Reevaluation #1: 02/23/24 22:40 Medical record is reviewed Reevaluation #2: 02/23/24 22:40 Patient symptoms are unchanged Reevaluation #3: 02/23/24 22:40 Patient informed of results and questions answered Reevaluation #4: Was pt. sent in by a medical professional or institution (, PA, PULVI MIXER OPERATOR, urgent care, hospital, or jail...) When possible be specific @ -no Did you speak to anyone other than the patient for history (EMS, parent, family, police, friend...)? What history was obtained from this source @ -no Did you review nursing and triage notes (agree or disagree)? Why? @ -agree Are old charts reviewed (outside hosp., previous admission, EMS record, old EKG, old radiological studies, urgent care reports/EKG's, jail records)? Report findings @ -yes Differential Diagnosis (chest pain, altered mental status, abdominal pain women, abdominal pain men, vaginal bleeding, weakness, fever, dyspnea, syncope, headache, dizziness, GI bleed, back pain, seizure, CVA, palpatations, mental health, musculoskeletal)? @ -prior EKG interpreted by me (3pts min.). @ -yes X-rays interpreted by me (1pt min.). @ -yes if current for pleural effusion CT interpreted by me (1pt min.). @ -Yes difficult for constipation U/S interpreted by me (1pt. min.). @ -no What testing was considered but not performed or refused? (CT, X-rays, U/S, labs)? Why? @ -none What meds were considered but not given or refused? Why? @ -none Did you discuss the management of the patient with other professionals (professionals i.e. , PA, PULVI MIXER OPERATOR, lab, RT, psych nurse, social science analyst, pyrometallurgical engineer, teacher, gunnery/ordnance officer, caser up)? Give summary @ -no Was smoking cessation discussed for >3mins.? @ -no Was critical care preformed (if so, how long)? @ -yes31 Were there social determinants of health that impacted care today? How? (Homelessness, low income, unemployed, alcoholism, drug addiction, transportation, low edu. Level, literacy, decrease access to med. care, shelter, rehab)? @ -none Was there de-escalation of care discussed even if they declined (Discuss DNR or withdrawal of care, Hospice)? DNR status @ -no What co-morbidities impacted this encounter? (DM, HTN, Smoking, COPD, CAD, Cancer, CVA, ARF, Chemo, Hep., AIDS, mental health diagnosis, sleep apnea, morbid obesity)? @ -none Was patient admitted / discharged? Hospital course, mention meds given and route, prescriptions, significant lab abnormalities, going to OR and other pertinent info. @ - 68 female to ER for evaluation of significant cancer, patient does have concern for pneumonia on x-ray and elevated white count no fever no change in breathing or respiration habits. Patiently placed on bowel regimen for significant constipation and hydration and supportive care Admitted Undiagnosed new problem with uncertain prognosis? @ -no Drug Therapy requiring intensive monitoring for toxicity (Heparin, Nitro, Insulin, Cardizem)? @ -no Were any procedures done? @ -no Diagnosis/symptom? @ -Weakness pneumonia dehydration Acute, or Chronic, or Acute on Chronic? @ -Acute Uncomplicated (without systemic symptoms) or Complicated (systemic symptoms)? @ -Complicated Side effects of treatment? @ -no Exacerbation, Progression, or Severe Exacerbation? @ -exacerbation Poses a threat to life or bodily function? How? (Chest pain, [place], MN, pneumonia, PE, COPD, DKA, ARF, appy, cholecystitis, CVA, Diverticulitis, Homicidal, Suicidal, threat to staff... and all critical care pts) @ -yes with extremes of age Reevaluation #5: Differential Weakness: Hypoglycemia, shock, sepsis, hyponatremia, anemia, infection, MN, ETOH, adverse medicine reaction, overdose, stroke, this is not meant to be an all-inclusive list. - Consultations Consultation #1: Spoke with [facility] agreed to admit this patient Medical Decision Making - Medical Decision Making 68 female to ER for evaluation of significant cancer, patient does have concern for pneumonia on x-ray and elevated white count no fever no change in breathing or respiration habits. Patiently placed on bowel regimen for significant constipation and hydration and supportive care - Lab Data Result diagrams: 03/01/24 06:08 03/01/24 06:08 Lab Results 02/23/24 02/23/24 02/23/24 Range/Units 20:45 20:45 20:45 WBC (3.8-10.6) k/uL RBC (3.80-5.40) m/uL Hgb (11.4-16.0) gm/dL Hct (34.0-46.0) % MCV (80.0-100.0) fL MCH (25.0-35.0) pg MCHC (31.0-37.0) g/dL RDW (11.5-15.5) % Plt Count (150-450) k/uL MPV Neutrophils % % Lymphocytes % % Monocytes % % Eosinophils % % Basophils % % Neutrophils # (1.3-7.7) k/uL Lymphocytes # (1.0-4.8) k/uL Monocytes # (0-1.0) k/uL Eosinophils # (0-0.7) k/uL Basophils # (0-0.2) k/uL Macrocytosis PT (10.0-12.5) sec INR (<1.2) APTT (22.0-30.0) sec Sodium 133 L (137-145) mmol/L Potassium 4.3 (3.5-5.1) mmol/L Chloride 101 (98-107) mmol/L Carbon Dioxide 26 (22-30) mmol/L Anion Gap 6 mmol/L BUN 12 (7-17) mg/dL Creatinine 0.38 L (0.52-1.04) mg/dL Est GFR (CKD-EPI)AfAm >90 (>60 ml/min/1.73 sqM) Est GFR (CKD-EPI)NonAf >90 (>60 ml/min/1.73 sqM) Glucose 108 H (74-99) mg/dL Plasma Lactic Acid Calixto 0.9 (0.7-2.0) mmol/L Calcium 8.5 (8.4-10.2) mg/dL Total Bilirubin 0.3 (0.2-1.3) mg/dL AST 20 (14-36) U/L ALT 10 (4-34) U/L Alkaline Phosphatase 109 (38-126) U/L Total Protein 5.5 L (6.3-8.2) g/dL Albumin 3.1 L (3.5-5.0) g/dL Amylase 44 (30-110) U/L Lipase 17 L (23-300) U/L Procalcitonin 0.05 (0.02-0.09) ng/mL 02/23/24 02/23/24 Range/Units 22:20 22:20 WBC 10.7 H (3.8-10.6) k/uL RBC 3.70 L (3.80-5.40) m/uL Hgb 12.0 (11.4-16.0) gm/dL Hct 36.8 (34.0-46.0) % MCV 99.5 (80.0-100.0) fL MCH 32.5 (25.0-35.0) pg MCHC 32.7 (31.0-37.0) g/dL RDW 14.4 (11.5-15.5) % Plt Count 254 (150-450) k/uL MPV 8.0 Neutrophils % 87 % Lymphocytes % 6 % Monocytes % 5 % Eosinophils % 0 % Basophils % 0 % Neutrophils # 9.3 H (1.3-7.7) k/uL Lymphocytes # 0.7 L (1.0-4.8) k/uL Monocytes # 0.5 (0-1.0) k/uL Eosinophils # 0.0 (0-0.7) k/uL Basophils # 0.0 (0-0.2) k/uL Macrocytosis Slight PT 10.4 (10.0-12.5) sec INR 0.9 (<1.2) APTT 19.8 L (22.0-30.0) sec Sodium (137-145) mmol/L Potassium (3.5-5.1) mmol/L Chloride (98-107) mmol/L Carbon Dioxide (22-30) mmol/L Anion Gap mmol/L BUN (7-17) mg/dL Creatinine (0.52-1.04) mg/dL Est GFR (CKD-EPI)AfAm (>60 ml/min/1.73 sqM) Est GFR (CKD-EPI)NonAf (>60 ml/min/1.73 sqM) Glucose (74-99) mg/dL Plasma Lactic Acid Calixto (0.7-2.0) mmol/L Calcium (8.4-10.2) mg/dL Total Bilirubin (0.2-1.3) mg/dL AST (14-36) U/L ALT (4-34) U/L Alkaline Phosphatase (38-126) U/L Total Protein (6.3-8.2) g/dL Albumin (3.5-5.0) g/dL Amylase (30-110) U/L Lipase (23-300) U/L Procalcitonin (0.02-0.09) ng/mL - Radiology Data Radiology results: report reviewed (CT abdomen pelvis is positive for constipation), image reviewed Critical Care Time Critical Care Time: Yes Total Critical Care Time: 31 Disposition Clinical Impression: Constipation, Abdominal pain, Weakness, Cancer associated pain, Chest pain, Pleural effusion Disposition: ADMITTED IP TO THIS [facility] Condition: Fair Is patient prescribed a controlled substance at d/c from ED?: No Time of Disposition: 22:40
[2024-02-23 22:00] LABS: ALT 10 U/L (4-34); AST 20 U/L (14-36); African American GFR (CKD) >90 (>60 ml/min/1.73 sqM); Albumin 3.1 g/dL (3.5-5.0); Alkaline Phosphatase 109 U/L (38-126); Amylase 44 U/L (30-110); Anion Gap 6 mmol/L; Blood Urea Nitrogen 12 mg/dL (7-17); Calcium 8.5 mg/dL (8.4-10.2); Carbon Dioxide 26 mmol/L (22-30); Chloride 101 mmol/L (98-107); Glucose 108 mg/dL (74-99); Lipase 17 U/L (23-300); Non-African American GFR(CKD) >90 (>60 ml/min/1.73 sqM); Potassium 4.3 mmol/L (3.5-5.1); Sodium 133 mmol/L (137-145); Total Bilirubin 0.3 mg/dL (0.2-1.3); Total Protein 5.5 g/dL (6.3-8.2)
[2024-02-23] MEDS: ONDANSETRON 4 MG/2 ML VIAL IVP STA (22:14)
[2024-02-23] MEDS: SODIUM CHLORIDE 0.9% 1,000 ML IV STA ×2 (22:14→22:15)
[2024-02-23] MEDS: MORPHINE SULFATE 4 MG/ML SYRINGE IVP STA (22:14)
--- NOTE | 2024-02-23 22:20 | CT ---
EXAM: CT Abdomen and Pelvis Without Intravenous Contrast CLINICAL HISTORY: ITS.REASON CT Reason: abdominal pain TECHNIQUE: Axial computed tomography images of the abdomen and pelvis without intravenous contrast. CTDI is 5.3 mGy and DLP is 296.1 mGy-cm. This CT exam was performed using one or more of the following dose reduction techniques: automated exposure control, adjustment of the mA and/or kV according to patient size, and/or use of iterative reconstruction technique. COMPARISON: No relevant prior studies available. FINDINGS: Lung bases: See below. Pleural space: Dependent airspace consolidations with large RIGHT and small LEFT pleural effusions, consistent with severe multilobar pneumonia and bilateral parapneumonic effusions. Left-sided chest tube. RIGHT Port-A-Cath. The need for a chest CT scan should be determined clinically. ABDOMEN: Liver: Unremarkable. Gallbladder and bile ducts: Unremarkable. No calcified stones. No ductal dilation. Pancreas: Unremarkable. No ductal dilation. Spleen: Unremarkable. No splenomegaly. Adrenals: Unremarkable. No mass. Kidneys and ureters: Unremarkable. No obstructing stones. No hydronephrosis. Stomach and bowel: Moderate fecal retention, correlate for constipation. No small bowel obstruction. No free air. No mucosal thickening. PELVIS: Appendix: No acute appendicitis. Bladder: Unremarkable. No stones. Reproductive: Unremarkable as visualized. ABDOMEN and PELVIS: Intraperitoneal space: See above. Bones/joints: No acute fracture. No dislocation. Soft tissues: Unremarkable. Vasculature: Unremarkable. No abdominal aortic aneurysm. Lymph nodes: Unremarkable. No enlarged lymph nodes. IMPRESSION: 1. No acute appendicitis. 2. Dependent airspace consolidations with large RIGHT and small LEFT pleural effusions, consistent with severe multilobar pneumonia and bilateral parapneumonic effusions. Left-sided chest tube. RIGHT Port-A- Cath. The need for a chest CT scan should be determined clinically. 3. Moderate fecal retention, correlate for constipation. No small bowel obstruction. No free air.
[2024-02-23] MEDS ORDERED: NALOXONE 0.4 MG/ML 1 ML VIAL IV PRN (22:36)
[2024-02-23] MEDS: SENNOSIDES-DOCUSATE SODIUM 1 EACH TAB PO STA (22:44)
[2024-02-23] MEDS: SODIUM CHLORIDE 0.9% 1,000 ML IV SCH (22:45)
[2024-02-23 22:51] LABS: Basophils % (A) 0 %; Eosinophils % (A) 0 %; HCT 36.8 % (34.0-46.0); Lymphocytes # (A) 0.7 k/uL (1.0-4.8); Lymphocytes % (A) 6 %; MCH 32.5 pg (25.0-35.0); MCHC 32.7 g/dL (31.0-37.0); MCV 99.5 fL (80.0-100.0); Macrocytosis Slight; Monocytes # (A) 0.5 k/uL (0-1.0); Monocytes % (A) 5 %; Neutrophils # (A) 9.3 k/uL (1.3-7.7); Neutrophils % (A) 87 %; Platelet Count 254 k/uL (150-450); RDW 14.4 % (11.5-15.5); WBC 10.7 k/uL (3.8-10.6)
[2024-02-23 23:05] LABS: INR 0.9 (<1.2); Prothrombin Time 10.4 sec (10.0-12.5)
[2024-02-23] MEDS: IPRATROPIUM-ALBUTEROL 3 ML NEB INHALATION STA (23:11)
[2024-02-23 23:15] LABS: Partial Thromboplastin Time 19.8 sec (22.0-30.0)
--- NOTE | 2024-02-24 01:42 | XR ---
EXAM: XR Chest, 1 View CLINICAL HISTORY: ITS.REASON XR Reason: known plerual effusions; hx breast cancer TECHNIQUE: Frontal view of the chest. COMPARISON: No relevant prior studies available. IMPRESSION: Cardiomegaly. Moderate vascular congestion. Bilateral pleural effusions.
--- NOTE | 2024-02-24 03:00 | P.CNPUL ---
History of Present Illness Consult date: 02/24/24 Requesting physician: Negro Ching Reason for consult: other (Known history of metastatic breast cancer and recurrent pleural effusions.) Chief complaint: Constipation x 6 days and abdominal pain History of present illness: This is a 68-year-old white female with past medical history significant for metastatic breast cancer. She is follows with her oncologist Dr. Dee. Reportedly, currently on chemotherapy with 2 weeks on and 1 week off. Of note, she was having recurrent left-sided pleural effusions, requiring frequent thoracentesis. 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 Patient did have a left-sided Pleurx catheter inserted by cardiothoracic surgery on 01/14/2024. Currently, she has been draining approximately every week. Draining approximately 100 mL of fluid each time. Fluid described as brown to red in color. She also has a history of COPD with an FEV1 47% of predicted. Combined restrictive process secondary to patient's malignancy and effusions. Patient has been using [place] 10 mg tabs every 6 hours at home for chronic pain related to her malignancy. She had developed some constipation at home. Had not had a normal bowel movement in over 6 days. Subsequently developed some lower abdominal pain. No nausea, vomiting, d iarrhea. Appetite has been poor. She did try to give herself a enema at home, which was not effective. Subsequently, came to the emergency room. CT of the abdomen and pelvis on arrival showed moderate fecal retention. No obvious acute intra-abdominal findings. No small bowel obstruction. No free air. There is an enlarged moderate to large right-sided effusion. There is a trace left-sided ef fusion and likely some associated atelectasis. Pneumonia is felt to be less likely in the absence of symptoms. Left-sided Pleurx catheter is in place. The patient is currently in the emergency room, room 17. She is lying in bed on 2 L/min nasal cannula. SpO2 98%. She is chronically oxygen dependent on 1 L/min nasal cannula at home. Her shortness of breath may be slightly worse than her baseline dyspnea. Particularly with exertion. She has chronic left-sided chest pain. She does have a chronic cough, with no significant amount of sputum production. No hemoptysis. No fevers. She is in good spirits. Her abdominal pain has slightly subsided. Abdomen is soft and does not appear acute. She did have a small formed bowel movement while in the emergency room. CBC on arrival: WBC count 10.7, hemoglobin 12, hematocrit 36.8, platelets 254. CMP also unremarkable. LFTs not elevated. Total bilirubin one 0.3. Pancreatic enzymes not elevated. Normal saline infusing at 75 mL/h. Vital signs are stable. Review of Systems REVIEW OF SYSTEMS: CONSTITUTIONAL: She has had weight loss since her cancer diagnosis. She has been fatigued and weak since resuming chemotherapy. Denies fevers or chills. EYES: Denies change in vision. EARS, NOSE, MOUTH, THROAT: Denies headaches, denies sore throat. CARDIOVASCULAR: Denies palpitations or syncopal episodes. Admits chronic left- sided chest pain. RESPIRATORY: See HPI. GASTROINTESTINAL: See HPI GENITOURINARY: Denies hematuria, denies infections. MUSKULOSKELETAL: Denies pain, denies swelling. INTEGUMENTARY: Denies rash, denies eczema. NEUROLOGICAL: Denies recent memory loss, no recent seizure activity. PSYCHIATRIC: Denies anxiety, denies depression. HEMATOLOGIC/LYMPHATIC: Denies anemia, denies enlarged lymph node Past Medical History Past Medical History: Cancer, COPD, Eye Disorder Additional Past Medical History / Comment(s): MENINGITIS, 19 YRS OLD ovarian cyst burst., NO MEDS FOR COPD. , FLOATER RIGHT EYE., LEFT BREAST CANCER - pt had a recent PET scan that showed at spot that they wanted to check out for mets. Recurrent left-sided pleural effusion History of Any Multi-Drug Resistant Organisms: None Reported Past Surgical History: Hysterectomy, Tonsillectomy Additional Past Surgical History / Comment(s): RUPTURED GRAFIAN FOLLICLE, HARITHA CATARACTS with lens implants mastecotomy march 2023; left-sided Pleurx catheter placed January 14, 2024 Past Anesthesia/Blood Transfusion Reactions: No Reported Reaction Additional Past Anesthesia/Blood Transfusion Reaction / Comment(s): HX OF BLOOD TRANSFUSION-NO REACTION Past Psychological History: Anxiety Smoking Status: Former smoker Past Alcohol Use History: None Reported Past Drug Use History: None Reported - Past Family History Father History Unknown: Yes Family Medical History: Cancer Additional Family Medical History / Comment(s): PANCREATIC CANCER Brother(s) History Unknown: Yes Family Medical History: Cancer, Thyroid Disorder Additional Family Medical History / Comment(s): STOMACH CANCER Medications and Allergies Home Medications Medication Instructions Recorded Confirmed Type Levothyroxine Sodium [Synthroid] 88 mcg PO DAILY 03/10/23 02/10/24 History ALPRAZolam [Xanax] 0.5 mg PO TID PRN 12/23/23 02/10/24 History Albuterol Sulfate [Ventolin HFA] 2 puff INHALATION RT-Q6H PRN 01/01/24 02/10/24 History Docusate [Colace] 100 mg PO BID cap 01/06/24 02/10/24 Rx polyethylene glycoL 3350 [Miralax] 17 gm PO DAILY PRN packet 01/06/24 02/10/24 Rx HYDROcodone/APAP 10-325MG [[place] 1 tab PO Q6HR 01/08/24 02/10/24 History 10-325] Allergies Allergy/AdvReac Type Severity Reaction Status Date / Time No Known Allergies Allergy Verified 02/15/24 04:30 Physical Exam Vitals: Vital Signs Temp Pulse Resp BP Pulse Ox 02/24/24 00:34 89 18 112/72 94 L 02/23/24 23:20 94 02/23/24 23:12 89 02/23/24 20:35 97.7 F 85 18 102/67 98 Intake and Output 02/23/24 02/23/24 02/24/24 14:59 22:59 06:59 Other: Weight 38.102 kg GENERAL EXAM: Alert, 68-year-old white female, cachectic, comfortable in no apparent distress. HEAD: Normocephalic and atraumatic EYES: Normal reaction of pupils, equal size. NOSE: Clear with pink turbinates. THROAT: No erythema or exudates. NECK: No masses, no JVD. CHEST: Prior left mastectomy. Left-sided Pleurx catheter secured in place. No erythema or drainage at insertion site. LUNGS: Diminished bibasilar lung sounds and left lower lobe inspiratory crackles. on 2 L/min nasal cannula. No conversational dyspnea or accessory muscle use. CVS: S1 and S2 normal with no audible murmur, regular rhythm. No extra heart sounds ABDOMEN: No hepatosplenomegaly, active bowel sounds, no guarding or rigidity. SPINE: No scoliosis or deformity SKIN: No rashes CENTRAL NERVOUS SYSTEM: No focal deficits, tone is normal in all 4 extremities. EXTREMITIES: There is no peripheral edema, clubbing, or cyanosis. Peripheral pulses are intact. Results - Laboratory Findings CBC and BMP: 02/23/24 22:20 02/23/24 20:45 PT/INR, D-dimer PT 10.4 sec (10.0-12.5) 02/23/24 22:20 INR 0.9 (<1.2) 02/23/24 22:20 Abnormal lab findings: Abnormal Labs 02/23/24 02/23/24 02/23/24 20:45 22:20 22:20 WBC 10.7 H RBC 3.70 L Neutrophils # 9.3 H Lymphocytes # 0.7 L APTT 19.8 L Sodium 133 L Creatinine 0.38 L Glucose 108 H Total Protein 5.5 L Albumin 3.1 L Lipase 17 L - Diagnostic Findings CT scan - chest: image reviewed Assessment and Plan Assessment: Abdominal pain and constipation, exacerbated by chronic opiate use. CT of the abdomen and pelvis on arrival showed moderate fecal retention. No obvious acute intra-abdominal findings. No small bowel obstruction. No free air. Moderate to large right-sided pleural effusion, patient denies prior thoracentesis on this side. History of malignant left-sided pleural effusion, requiring frequent previous thoracentesis, and eventual Pleurx catheter insertion on 01/14/2024. Patient has been draining her catheter weekly, approximately 100 mL of fluid drained each time. No change in pleural fluid consistency or color. Acute on chronic dyspnea, secondary to above Metastatic breast cancer, most recent PET scan performed on 12/03/2023 identified new foci of uptake within the mediastinum and hilar lymph nodes, as well as new foci within the liver, osseous lesions including thoracic vertebral bodies and right ilium and left anterior rib and, as well as persistent uptake in the distal sigmoid colon, these findings are suspicious for disease progression and metastasis. Patient has reportedly started on chemotherapy, which is being directed by her oncologist. History of left-sided mastectomy, secondary to above Severe chronic obstructive pulmonary disease, most recent FEV1 47% of predicted, stable Chronic hypoxemic respiratory failure, maintained on 1 L/min nasal cannula while at home Former tobacco smoker, quitting approximately 2 months ago History of meningitis History of ovarian cyst Severe protein calorie malnutrition Plan: Patient's medications, labs, available imaging were reviewed Continue supplemental oxygen. Patient does have a chronic right-sided pleural effusion, which appears enlarged on abdominal CT. Obtain chest x-ray. Obtain chest ultrasound with markings. There remains a trace left-sided pleural effusion and has some associated atelectasis, Clinically pneumonia is felt to be less likely. Check procalcitonin level. PleurX catheter remains in place. Oncology was also asked to see this patient. We will continue to follow, and additional recommendations are forthcoming. I have personally seen and examined the patient, performed the documentation and the assessment and plan as written. Number of minutes spent on the visit:20 Time with Patient: Greater than 30
[2024-02-24] MEDS: ALPRAZolam 0.5 MG TAB PO STA (03:58)
[2024-02-24 06:56] LABS: Basophils % (A) 0 %; Eosinophils % (A) 0 %; HCT 34.1 % (34.0-46.0); Lymphocytes # (A) 0.8 k/uL (1.0-4.8); Lymphocytes % (A) 12 %; MCH 32.4 pg (25.0-35.0); MCHC 32.3 g/dL (31.0-37.0); MCV 100.3 fL (80.0-100.0); Macrocytosis Slight; Mean Platelet Volume 7.5; Monocytes # (A) 0.5 k/uL (0-1.0); Monocytes % (A) 8 %; Neutrophils # (A) 5.1 k/uL (1.3-7.7); Neutrophils % (A) 79 %; Platelet Count 270 k/uL (150-450); RDW 14.1 % (11.5-15.5); WBC 6.5 k/uL (3.8-10.6)
[2024-02-24 07:17] LABS: ALT 8 U/L (4-34); AST 19 U/L (14-36); African American GFR (CKD) >90 (>60 ml/min/1.73 sqM); Albumin 2.7 g/dL (3.5-5.0); Alkaline Phosphatase 90 U/L (38-126); Anion Gap 4 mmol/L; Blood Urea Nitrogen 8 mg/dL (7-17); Calcium 8.4 mg/dL (8.4-10.2); Carbon Dioxide 25 mmol/L (22-30); Chloride 106 mmol/L (98-107); Glucose 88 mg/dL (74-99); Magnesium 1.9 mg/dL (1.6-2.3); Non-African American GFR(CKD) >90 (>60 ml/min/1.73 sqM); Phosphorus 3.9 mg/dL (2.5-4.5); Potassium 4.3 mmol/L (3.5-5.1); Sodium 135 mmol/L (137-145); Total Bilirubin 0.4 mg/dL (0.2-1.3); Total Protein 4.9 g/dL (6.3-8.2)
[2024-02-24] MEDS: ALBUTEROL NEBULIZED 2.5 MG/3 ML INHALATION SCH (07:48)
[2024-02-24 07:58] LABS: Appearance,Urine Clear (Clear); Bilirubin,Urine Negative (Negative); Blood,Urine Negative (Negative); Color,Urine Colorless; Glucose,Urine (UA) Negative (Negative); Ketones,Urine Negative (Negative); Leukocyte Esterase,Urine Negative (Negative); Nitrite,Urine Negative (Negative); PH, Urine 6.5 (5.0-8.0); Protein,Urine Negative (Negative); Specific Gravity,Urine 1.008 (1.001-1.035); Urobilinogen,Urine <2.0 mg/dL (<2.0)
--- NOTE | 2024-02-24 08:38 | PCN ---
PROCEDURE NOTE PROCEDURE PERFORMED: Right-sided thoracentesis. PREOPERATIVE DIAGNOSIS: Large right pleural effusion. POSTOPERATIVE DIAGNOSIS: Large right pleural effusion. INDICATION: Pleural effusion. DESCRIPTION OF PROCEDURE: The patient's procedure was done in the emergency room, room #17. There was informed consent and universal timeout. The right posterior chest was marked by ultrasound. A time-out was completed verifying correct patient, procedure, site, positioning , and implant (s) or special equipment if applicable. Ultrasound guidance was used and appropriate fluid pocket was identified and marked. Patient was positioned, prepped and draped in usual sterile fashion. Lidocaine was used to anesthetize the area. A Thoracentesis catheter was introduced into the pleural space and fluid was removed. Blood loss was none. A chest x-ray was ordered to evaluate for pneumothorax. Total Fluid was removed 1.1 L, from the right pleural space. Color of Fluid was yellow. Fluid was not sent for appropriate laboratory tests. The patient tolerated the procedure well. The procedure was done uneventfully. A chest x-ray was ordered. There was no immediate complication. MMODL / IJN: [id number] /
--- NOTE | 2024-02-24 08:44 | XR ---
EXAMINATION TYPE: XR chest 1V portable DATE OF EXAM: 02/24/2024 HISTORY: Shortness of breath. COMPARISON: Earlier in the day TECHNIQUE: Single view of the chest is submitted. FINDINGS: Right apical pneumothorax noted with pleural apical distance of 2.6 cm. There is also air-fluid level within the left lung apex suspicious for hydropneumothorax. Persistent infiltrate left perihilar and left basilar region. Left-sided chest tube in place. Diminut ion in right-sided pleural effusion with small residual noted. Additional pleural frontal opacity at the right medial lung base. The heart is stable. Hilar and mediastinal structures are within normal limits. Degenerative changes are seen of the dorsal spine. IMPRESSION: 1. Right apical pneumothorax noted with pleural apical distance of 2.6 cm. There is also air-fluid l evel within the left lung apex suspicious for hydropneumothorax.
[2024-02-24] MEDS: PANTOPRAZOLE 40 MG/10 ML VIAL IV SCH (08:58)
[2024-02-24] MEDS: polyethylene glycoL 3350 17 GM POWD.PACK PO SCH (09:01)
[2024-02-24] MEDS: ONDANSETRON 4 MG/2 ML VIAL IVP PRN (09:06)
--- NOTE | 2024-02-24 09:09 | US ---
EXAMINATION TYPE: US chest DATE OF EXAM: 02/24/2024 COMPARISON: NONE CLINICAL INDICATION: Female, 68 years old with history of right pleural effusion; pleural effusion ri ght TECHNIQUE: Targeted ultrasound of the posterior lower right hemithorax EXAM MEASUREMENTS: Right Pleural Effusion pocket size: 12.6 cm Right skin surface to fluid distance: 1.0 cm Lung tissue visualized 3.2 cm deep in fluid pocket. Right side marked for possible thoracentesis outside the dept. Pulmonologists are able to review the images in the patient?s EMR. IMPRESSIONS: As above
[2024-02-24] MEDS: MORPHINE SULFATE 4 MG/ML SYRINGE IV PRN (10:01)
[2024-02-24] MEDS: LEVOTHYROXINE 125 MCG TAB PO SCH (10:43)
[2024-02-24] MEDS: ALPRAZolam 0.5 MG TAB PO PRN (14:04)
--- NOTE | 2024-02-24 19:48 | P.CONS ---
History of Present Illness - Reason for Consult Consult date: 02/24/24 Met triple neg breast cancer Requesting physician: Ngero Ching - Chief Complaint SOB - History of Present Illness Ms. Canchola is a 68-year-old female patient of Dr. Dee with a history of left breast cancer. She presented in 2021 with pain in the left breast, mass pa lpated at the central portion, mammogram 06/12/2022 showed a large irregular, bilobed mass measuring 3.8 cm in the upper outer quadrant. US showed 4.1 x 2.3 x 1.3 cm elongated irregular mass. There was also an abnormally thickened lymph node measuring 9 mm. At 4:00 there was another irregular lesion measuring 1 x 0.7 cm, posteriorly to that lesion measuring 1.8 x 0.9 cm and at 11:00 there was a 0.9 x 0.7 cm lesion. Biopsy 06/06/2022, 1:00 and 4:00 mass showed IDC, grade 2, left axillary tail biopsy showing lymphoid tissue involved with grade 2 ductal carcinoma. All 3 specimen tumor morphology similar appearance, triple negative. Staging PET scan showed uptake in the breast lesions and left axilla, possible uptake in left retropectoral nodes, no distant metastatic disease. She had neoadjuvant carbo/Taxol/Keytruda completing 4 cycles 10/29/2022. She then completed 4 cycles of Adriamycin/Cytoxan plus Keytruda with a 1 week delay. 4 cycles completed 02/02/2023. She continued on Keytruda until surgical resection was planned. Surgery was performed 03/16/2023, LMRM with lymph node dissection. Final path showed multifocal invasive residual ductal carcinoma with negative margins. 10 out of 14 lymph nodes were involved, largest focus of residual cancer was 4.5 cm. Because of significant residual disease adjuvant treatment drugs were changed. Patient did have NGS with no targetable mutations, breast next testing showed no targetable germline mutations. She was started on Xeloda plus Keytruda. Patient required dose reduction and holding of Xeloda because of significant mucositis and PPE. She also ended up with a rash so Keytruda was discontinued. She was referred to adjuvant radiation to avoid any delays in treatment. She had a reddish rash involving the incision of the left chest wall, biopsy 11/18/2023 unfortunately showed recurrent grade 3, triple negative breast cancer. Staging PET 12/05/2023 revealed involvement in the mediastinal lymph nodes, a liver lesion as well and as bone involvement of the T-spine, right ilium and left ribs, large pleural effusion noted. She did have a left sided thoracentesis with cytology positive for malignancy. She has required additional thoracentesis. Patient is currently on eribulin, status post cycle 2-day 8. She presents to the emergency department with complaints of decreased energy, anorexia and constipation. Last bowel movement was about a week ago. Denies any fevers, chills, chest pain or shortness of breath, mild nausea, no vomiting, swelling, dysuria or hematuria. She denies any new or unusual pain. She had a 1.1 L thoracentesis on the right. Review of Systems 10 point ROS is neg except as stated in HPI Past Medical History Past Medical History: Cancer, COPD, Eye Disorder Additional Past Medical History / Comment(s): MENINGITIS, 19 YRS OLD ovarian cyst burst., NO MEDS FOR COPD. , FLOATER RIGHT EYE., LEFT BREAST CANCER - pt had a recent PET scan that showed at spot that they wanted to check out for mets. Recurrent left-sided pleural effusion History of Any Multi-Drug Resistant Organisms: None Reported Past Surgical History: Hysterectomy, Tonsillectomy Additional Past Surgical History / Comment(s): RUPTURED GRAFIAN FOLLICLE, HARITHA CATARACTS with lens implants mastecotomy march 2023; left-sided Pleurx catheter placed January 14, 2024 Past Anesthesia/Blood Transfusion Reactions: No Reported Reaction Additional Past Anesthesia/Blood Transfusion Reaction / Comm: HX OF BLOOD TRANSFUSION-NO REACTION Past Psychological History: Anxiety Smoking Status: Former smoker Past Alcohol Use History: None Reported Past Drug Use History: None Reported - Past Family History Father History Unknown: Yes Family Medical History: Cancer Additional Family Medical History / Comment(s): PANCREATIC CANCER Brother(s) History Unknown: Yes Family Medical History: Cancer, Thyroid Disorder Additional Family Medical History / Comment(s): STOMACH CANCER Medications and Allergies Home Medications Medication Instructions Recorded Confirmed Type ALPRAZolam [Xanax] 0.5 mg PO TID PRN 12/23/23 02/24/24 History Albuterol Sulfate [Ventolin HFA] 2 puff INHALATION RT-Q6H PRN 01/01/24 02/24/24 History HYDROcodone/APAP 10-325MG [[place] 1 tab PO Q6HR 01/08/24 02/24/24 History 10-325] Docusate [Colace] 200 mg PO BID 02/24/24 02/24/24 History Levothyroxine Sodium [Synthroid] 125 mcg PO DAILY 02/24/24 02/24/24 History polyethylene glycoL 3350 [Miralax] 17 gm PO BID PRN 02/24/24 02/24/24 History Allergies Allergy/AdvReac Type Severity Reaction Status Date / Time No Known Allergies Allergy Verified 02/24/24 07:47 Physical Exam Vitals: Vital Signs Temp Pulse Resp BP Pulse Ox 02/24/24 09:56 100 20 102/81 94 L 02/24/24 08:06 105 H 20 105/73 91 L 02/24/24 08:00 84 16 02/24/24 07:48 82 16 95 02/24/24 06:34 80 20 98/65 95 02/24/24 05:02 85 20 111/70 95 02/24/24 00:34 89 18 112/72 94 L 02/23/24 23:20 94 02/23/24 23:12 89 02/23/24 20:35 97.7 F 85 18 102/67 98 Intake and Output 02/23/24 02/24/24 02/24/24 22:59 06:59 14:59 Other: Weight 38.102 kg - Constitutional General appearance: cooperative, no acute distress, thin - EENT Eyes: anicteric sclerae, EOMI ENT: hearing grossly normal, normal oropharynx - Neck Neck: no lymphadenopathy - Respiratory Respiratory: bilateral: CTA, diminished - Cardiovascular Rhythm: regular Heart sounds: normal: S1, S2 Abnormal Heart Sounds: no systolic murmur, no diastolic murmur, no rub, no S3 Gallop, no S4 Gallop, no click, no other leg Peripheral Edema: bilateral: None - Gastrointestinal General gastrointestinal: no absent bowel sounds, no decreased bowel sounds, distended, no hepatomegaly, no hyperactive bowel sounds, no normal bowel sounds, no organomegaly, no rigid, no scaphoid, soft, no splenomegaly, tenderness, no umbilical hernia, no ventral hernia - Integumentary Integumentary: normal - Neurologic Neurologic: CNII-XII intact - Musculoskeletal Musculoskeletal: strength equal bilaterally - Psychiatric Psychiatric: A&O x's 3, appropriate affect, intact judgment & insight Results CBC & Chem 7: 02/24/24 05:59 02/24/24 05:59 Labs: Abnormal Lab Results - Last 24 Hours (Table) 02/23/24 02/23/24 02/23/24 Range/Units 20:45 22:20 22:20 WBC 10.7 H (3.8-10.6) k/uL RBC 3.70 L (3.80-5.40) m/uL Hgb (11.4-16.0) gm/dL MCV (80.0-100.0) fL Neutrophils # 9.3 H (1.3-7.7) k/uL Lymphocytes # 0.7 L (1.0-4.8) k/uL APTT 19.8 L (22.0-30.0) sec Sodium 133 L (137-145) mmol/L Creatinine 0.38 L (0.52-1.04) mg/dL Glucose 108 H (74-99) mg/dL Total Protein 5.5 L (6.3-8.2) g/dL Albumin 3.1 L (3.5-5.0) g/dL Lipase 17 L (23-300) U/L 02/24/24 02/24/24 Range/Units 05:59 05:59 WBC (3.8-10.6) k/uL RBC 3.40 L (3.80-5.40) m/uL Hgb 11.0 L (11.4-16.0) gm/dL MCV 100.3 H (80.0-100.0) fL Neutrophils # (1.3-7.7) k/uL Lymphocytes # 0.8 L (1.0-4.8) k/uL APTT (22.0-30.0) sec Sodium 135 L (137-145) mmol/L Creatinine 0.36 L (0.52-1.04) mg/dL Glucose (74-99) mg/dL Total Protein 4.9 L (6.3-8.2) g/dL Albumin 2.7 L (3.5-5.0) g/dL Lipase (23-300) U/L Chest x-ray: report reviewed CT scan - abdomen: report reviewed CT scan - pelvis: report reviewed Assessment and Plan (1) Pleural effusion Current Visit: No Status: Acute Priority: High Code(s): J90 - PLEURAL EFFUSION, NOT ELSEWHERE CLASSIFIED SNOMED Code(s): 07285925 (2) Triple negative breast cancer Current Visit: Yes Status: Acute Priority: High Code(s): C50.919 - MALIGNANT NEOPLASM OF UNSP SITE OF UNSPECIFIED FEMALE BREAST SNOMED Code(s): 941346118 (3) Constipation Current Visit: Yes Status: Acute Priority: Medium Code(s): K59.00 - CONSTIPATION, UNSPECIFIED SNOMED Code(s): 25636568 (4) Weakness Current Visit: Yes Status: Acute Priority: Medium Code(s): R53.1 - WEAKNESS SNOMED Code(s): 32455482 Plan: Pleural effusion -Pulmonary was seen and evaluated patient -Status post 1.1 L thoracentesis on the right -Have requested cytology Metastatic triple neg breast cancer -pt is on eribulin s/p C2 D8 -Previously left pleural fluid was positive for malignancy. Pending now to see if the pleural fluid on the right is positive. This would mean failure of current treatment. Pending cytology. -Currently no severe hematological toxicities from chemotherapy. Constipation -Multiple medications have been ordered for promotion of a bowel movement -Medications have been ordered for nausea Weakness -Multifactoral including treatment, malignancy, poor oral intake -Consult dietitian, consult PT OT Doctor attests: I performed a history and physical examination of this patient, developed impression and plan of care. Discussed with dictator. I agree with dictators note, documented as a scribe.
[2024-02-24] MEDS: SENNOSIDES-DOCUSATE SODIUM 1 EACH TAB PO SCH (21:56)
[2024-02-24] MEDS: HEPARIN SODIUM,PORCINE 5,000 UNIT/ML 1 ML VIAL SQ SCH (21:59)
[2024-02-24] MEDS: OLANZapine 2.5 MG TAB PO SCH (22:55)
--- NOTE | 2024-02-24 23:16 | P.HPIM ---
History of Present Illness H&P Date: 02/24/24 Chief Complaint: Abdominal pain 68-year-old female with a past medical history of triple negative breast cancer currently on eribulin status post C2 D8, prior history of left pleural effusion with positive margin cells, patient does have left-sided Pleurx catheter placed on 01/14/2024, anxiety and prior history of smoking presents to ER with complaints of abdominal pain and constipation. Patient has not had a bowel meant for the last 6 days prior to admission. Otherwise patient denied any complaints of nausea or vomiting or diarrhea. Decreased oral intake and eventua lly came to ER. Patient was given enema last night and was able to have a good bowel movement. Patient otherwise denied any complaints of fever or chills. No cough or sputum production. Chest x-ray showed moderate vascular congestion and bilateral pleural effusions. CT of the abdomen pelvis was done which showed no acute appendicitis. Dependent airspace consolidation send with the large right and small left pleural effusions consistent with severe multilobar pneumonia and bilateral parapneumonic effusions. Left-sided chest tube. Right port a catheter Laboratory data showed WBC 10.7 hemoglobin 12.0 and platelets 254, sodium 133 potassium 4.3 chloride 101 bicarb is 26 BUN 12 and creatinine 0.38 and blood sugar 108 Procalcitonin level 0.05 Albumin 3.1 Urinalysis negative for infection. Moderate fecal retention correlate for constipation. No small bowel obstruction. No free air. Chest/ultrasound showed right-sided marked for possible thoracentesis. Laboratory data showed WBC 10.7 hemoglobin 12.0 and platelets 254 t is a Review of Systems Constitutional: Patient denies any fever or chills . Patient does have generalized weakness and loss of appetite.. Abdomen: Patient denied nausea vomiting and diarrhea. Patient does have constipation and abdominal pain. Cardiovascular: Patient denies any chest pain. Mild short of breath no palpitations. Respiratory: patient denied any cough is from production. Positive for shortness of breath Neurologic: Patient denied any numbness or tingling headache. Musculoskeletal: Patient denies any complaints of joint swelling or deformity. Skin: Negative Psychiatric: Negative Endocrine: No heat or cold intolerance. No recent weight gain. Genitourinary: No dysuria or hematuria. All other 14 point ROS negative except the above Past Medical History Past Medical History: Cancer, COPD, Eye Disorder Additional Past Medical History / Comment(s): MENINGITIS, 19 YRS OLD ovarian cyst burst., NO MEDS FOR COPD. , FLOATER RIGHT EYE., LEFT BREAST CANCER - pt had a recent PET scan that showed at spot that they wanted to check out for mets. Recurrent left-sided pleural effusion History of Any Multi-Drug Resistant Organisms: None Reported Past Surgical History: Hysterectomy, Tonsillectomy Additional Past Surgical History / Comment(s): RUPTURED GRAFIAN FOLLICLE, HARITHA CA TARACTS with lens implants mastecotomy march 2023; left-sided Pleurx catheter placed January 14, 2024 Past Anesthesia/Blood Transfusion Reactions: No Reported Reaction Additional Past Anesthesia/Blood Transfusion Reaction / Comment(s): HX OF BLOOD TRANSFUSION-NO REACTION Past Psychological History: Anxiety Smoking Status: Former smoker Past Alcohol Use History: None Reported Past Drug Use History: None Reported - Past Family History Father History Unknown: Yes Family Medical History: Cancer Additional Family Medical History / Comment(s): PANCREATIC CANCER Brother(s) History Unknown: Yes Family Medical History: Cancer, Thyroid Disorder Additional Family Medical History / Comment(s): STOMACH CANCER Medications and Allergies Home Medications Medication Instructions Recorded Confirmed Type ALPRAZolam [Xanax] 0.5 mg PO TID PRN 12/23/23 02/24/24 History Albuterol Sulfate [Ventolin HFA] 2 puff INHALATION RT-Q6H PRN 01/01/24 02/24/24 History HYDROcodone/APAP 10-325MG [[place] 1 tab PO Q6HR 01/08/24 02/24/24 History 10-325] Docusate [Colace] 200 mg PO BID 02/24/24 02/24/24 History Levothyroxine Sodium [Synthroid] 125 mcg PO DAILY 02/24/24 02/24/24 History polyethylene glycoL 3350 [Miralax] 17 gm PO BID PRN 02/24/24 02/24/24 History Allergies Allergy/AdvReac Type Severity Reaction Status Date / Time No Known Allergies Allergy Verified 02/24/24 07:47 Physical Exam Vitals: Vital Signs Temp Pulse Pulse Resp BP BP Pulse Ox 02/24/24 20:00 98.7 F 95 16 99/85 96 02/24/24 18:44 98.1 F 107 H 21 144/76 94 L 02/24/24 18:19 98.0 F 88 21 88/56 97 02/24/24 17:18 98 22 97/77 92 L 02/24/24 16:14 110 H 20 98/64 91 L 02/24/24 15:38 100 02/24/24 15:32 98 18 02/24/24 14:00 118 H 20 90/60 92 L 02/24/24 12:21 91 20 02/24/24 12:12 91 20 02/24/24 11:48 100 20 93/60 93 L 02/24/24 09:56 100 20 102/81 94 L 02/24/24 08:06 105 H 20 105/73 91 L 02/24/24 08:00 84 16 02/24/24 07:48 82 16 95 02/24/24 06:34 80 20 98/65 95 02/24/24 05:02 85 20 111/70 95 02/24/24 00:34 89 18 112/72 94 L 02/23/24 23:20 94 02/23/24 23:12 89 Intake and Output 02/24/24 02/24/24 02/25/24 14:59 22:59 06:59 Other: Weight 38.102 kg PHYSICAL EXAMINATION: Patient is lying in the bed comfortably, no acute distress, awake alert and oriented. Cachectic HEENT: Normocephalic. Neck is supple. Pupils reactive. Nostrils clear. Oral cavity is moist. Neck reveals no JVD, carotid bruits, or thyromegaly. CHEST EXAMINATION: Trachea is central. Symmetrical expansion. No wheezing or rhonchi. Nonlabored breathing.. CARDIAC: Normal S1, S2 with no gallops. No murmurs ABDOMEN: Soft. Bowel sounds present no organomegaly. No abdominal bruits. Extremities: reveal no edema. No clubbing or cyanosis Neurologically awake, alert, oriented x3 with well-coordinated movements. No gross focal deficits noted Skin: No rash or skin lesions. Psychiatric: Coperative. Nonsuicidal Musculoskeletal: No joint swelling or deformity. Results CBC & Chem 7: 02/24/24 05:59 02/24/24 05:59 Labs: Abnormal Lab Results - Last 24 Hours (Table) 02/23/24 02/24/24 02/24/24 Range/Units 22:20 05:59 05:59 RBC 3.40 L (3.80-5.40) m/uL Hgb 11.0 L (11.4-16.0) gm/dL MCV 100.3 H (80.0-100.0) fL Lymphocytes # 0.8 L (1.0-4.8) k/uL APTT 19.8 L (22.0-30.0) sec Sodium 135 L (137-145) mmol/L Creatinine 0.36 L (0.52-1.04) mg/dL Total Protein 4.9 L (6.3-8.2) g/dL Albumin 2.7 L (3.5-5.0) g/dL Thrombosis Risk Factor Assmnt - DVT/VTE Prophylaxis DVT/VTE Prophylaxis: Pharmacologic Prophylaxis ordered - Choose All That Apply Any of the Below Risk Factors Present?: Yes Each Factor Represents 1 point: Abnormal pulmonary function (COPD), Serious lung disease incl. pneumonia (< 1month) Other Risk Factors: Yes Each Risk Factor Represents 2 Points: Age 61-74 years Thrombosis Risk Factor Assessment Total Risk Factor Score: 4 Thrombosis Risk Factor Assessment Level: Moderate Risk Assessment and Plan Assessment: Abdominal pain secondary to constipation and fecal retention status post enema. Moderate to large right pleural effusion which is new History of left-sided pleural effusion status post Pleurx catheter placement and has been draining weekly at home. Fluid cytology was positive for malignancy. Triple negative metastatic breast cancer status post left mastectomy on 12/03/2023, patient is currently on chemotherapy. COPD Chronic hypoxic respiratory failure on 1 L oxygen at home Prior history of smoking Severe protein calorie malnutrition DVT prophylaxis heparin subcu Plan: Patient will be continued on oxygen supplementation as needed. Status post right thoracentesis by pulmonary. Fluid analysis was sent including cytology. Encourage incentive spirometry and follow-up closely. Will be continued on stool softeners and bowel regimen. Patient did have bowel movement with enema. Continue with pain management and follow-up closely. Oncology and pulmonary is on board. Patient is on IV hydration with normal saline at 75 cc/h. Monitor fluid status closely. Time with Patient: Greater than 30
[2024-02-25] MEDS: SODIUM CHLORIDE 0.9% 1,000 ML IV SCH (06:28)
[2024-02-25] MEDS: HYDROcodone/APAP 10-325MG 1 EACH TAB PO PRN (09:02)
[2024-02-25 11:03] LABS: Basophils # (A) 0.04 X 10*3/uL (0.00-0.10); Basophils % (A) 0.6 %; Eosinophils # (A) 0 X 10*3/uL (0.04-0.35); Eosinophils % (A) 0 %; HCT 33.4 % (37.2-46.3); HGB 10.9 g/dL (12.0-15.0); Lymphocytes # (A) 0.92 X 10*3/uL (0.90-5.00); Lymphocytes % (A) 14.5 %; MCH 32.2 pg (27.0-32.0); MCHC 32.6 g/dL (32.0-37.0); MCV 98.5 FL (80.0-97.0); Mean Platelet Volume 9.4 FL (9.5-12.2); Monocytes # (A) 0.63 X 10*3/uL (0.20-1.00); NRBC Per 100 WBC 0 X 10*3/uL (0.00-0.01); Neutrophils % (A) 74.3 %; Platelet Count 220 X 10*3/uL (140-440); RBC 3.39 X 10*6/uL (4.10-5.20); RDW 14.6 % (11.5-14.5); WBC 6.33 X 10*3/uL (4.50-10.00)
[2024-02-25 11:38] LABS: BUN/Creat Ratio 9.75 Ratio (12.00-20.00); Blood Urea Nitrogen 3.9 mg/dL (9.0-27.0); Calcium 7.8 mg/dL (8.7-10.3); Carbon Dioxide 24.9 mmol/L (21.6-31.8); Chloride 108 mmol/L (96-109); Glucose 79 mg/dL (70-110); Sodium 141 mmol/L (135-145)
--- NOTE | 2024-02-25 14:10 | P.PN ---
Subjective Progress Note Date: 02/25/24 This is a 68-year-old white female with past medical history significant for metastatic breast cancer. She is follows with her oncologist Dr. Dee. Reportedly, currently on chemotherapy with 2 weeks on and 1 week off. Of note, she was having recurrent left-sided pleural effusions, requiring frequent tho racentesis. 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 Patient did have a left-sided Pleurx catheter inserted by cardiothoracic surgery on 01/14/2024. Currently, she has been draining approximately every week. Draining approximately 100 mL of fluid each time. Fluid described as brown to red in color. She also has a history of COPD with an FEV1 47% of predicted. Combined restrictive process secondary to patient's malignancy and effusions. Patient has been using [place] 10 mg tabs every 6 hours at home for chronic pain related to her malignancy. She had developed some constipation at home. Had not had a normal bowel movement in over 6 days. Subsequently developed some lower abdominal pain. No nausea, vomiting, diarrhea. Appetite has been poor. She did try to give herself a enema at home, which was not effective. Subsequently, came to the emergency room. CT of the abdomen and pelvis on arrival showed moderate fecal retention. No obvious acute intra-abdominal findings. No small bowel obstruction. No free air. There is an enlarged moderate to large right-sided effusion. There is a trace left-sided effusion and likely some associated atelectasis. Pneumonia is felt to be less likely in the absence of symptoms. Left-sided Pleurx catheter is in place. The patient is currently in the emergency room, room 17. She is lying in bed on 2 L/min nasal cannula. SpO2 98%. She is chronically oxygen dependent on 1 L/min nasal cannula at home. Her shortness of breath may be slightly worse than her baseline dyspnea. Particularly with exertion. She has chronic left-sided chest pain. She does have a chronic cough, with no significant amount of sputum production. No hemoptysis. No fevers. She is in good spirits. Her abdominal pain has slightly subsided. Abdomen is soft and does not appear acute. She did have a small formed bowel movement while in the emergency room. CBC on arrival: WBC count 10.7, hemoglobin 12, hematocrit 36.8, platelets 254. CMP also unremarkable. LFTs not elevated. Total bilirubin one 0.3. Pancreatic enzymes not elevated. Normal saline infusing at 75 mL/h. Vital signs are stable. The patient is seen today February 25, 2024 in follow-up on the regular medical floor. She is currently resting fairly comfortably in bed. Awake and alert in no acute distress. She is maintaining good O2 saturations in the 90s on 2 L/min per nasal cannula. Normal saline at 50 MLS per hour. White count 6.3. Hemoglobin 10.9. Platelets 220. Sodium 141. Potassium 4.0. Bicarb 25. BUN 4. Creatinine 0.4. Glucose 79. Urinalysis clean. She is continued on albuterol as needed. Heparin for DVT prophylaxis. She did undergo a right- sided thoracentesis yesterday with 1.1 L of fluid removed. Not sent again for cytology or fluid analysis. Objective - Vital Signs Vital signs: Vital Signs Temp 98.9 F 02/25/24 07:28 Pulse 94 02/25/24 07:28 Resp 24 02/25/24 07:28 BP 108/67 02/25/24 07:28 Pulse Ox 95 02/25/24 08:17 FiO2 Intake & Output 02/24/24 02/25/24 02/25/24 18:59 06:59 18:59 Output Total 2 Balance -2 Weight 38.102 kg Output: Stool 2 Other: # Voids 3 1 # Bowel Movements 1 # Emeses 0 - Exam GENERAL EXAM: Alert, very pleasant 68-year-old female, cachectic, comfortable in no apparent distress. HEAD: Normocephalic and atraumatic EYES: Normal reaction of pupils, equal size. NOSE: Clear with pink turbinates. THROAT: No erythema or exudates. NECK: No masses, no JVD. CHEST: Prior left mastectomy. Left-sided Pleurx catheter secured in place. No erythema or drainage at insertion site. LUNGS: Diminished bibasilar lung sounds and left lower lobe inspiratory crackles. on 2 L/min nasal cannula. CVS: S1 and S2 normal with no audible murmur, regular rhythm. No extra heart sounds ABDOMEN: No hepatosplenomegaly, active bowel sounds, no guarding or rigidity. SPINE: No scoliosis or deformity SKIN: No rashes CENTRAL NERVOUS SYSTEM: No focal deficits, tone is normal in all 4 extremities. EXTREMITIES: There is no peripheral edema, clubbing, or cyanosis. Peripheral pulses are intact. - Labs CBC & Chem 7: 02/25/24 06:49 02/25/24 06:49 Labs: Abnormal Lab Results - Last 24 Hours (Table) 02/25/24 02/25/24 Range/Units 06:49 06:49 RBC 3.39 L (4.10-5.20) X 10*6/uL Hgb 10.9 L (12.0-15.0) g/dL Hct 33.4 L (37.2-46.3) % MCV 98.5 H (80.0-97.0) FL MCH 32.2 H (27.0-32.0) pg RDW 14.6 H (11.5-14.5) % MPV 9.4 L (9.5-12.2) FL Eosinophils # 0 L (0.04-0.35) X 10*3/uL BUN 3.9 L (9.0-27.0) mg/dL Creatinine 0.4 L (0.6-1.5) mg/dL BUN/Creatinine Ratio 9.75 L (12.00-20.00) Ratio Calcium 7.8 L (8.7-10.3) mg/dL Assessment and Plan Assessment: Abdominal pain and constipation, exacerbated by chronic opiate use. CT of the abdomen and pelvis on arrival showed moderate fecal retention. No obvious acute intra-abdominal findings. No small bowel obstruction. No free air. Moderate to large right-sided pleural effusion, patient denies prior thor acentesis on this side. Status post right-sided thoracentesis on 02/24/2024 with 1.1 L of fluid removed, not sent for fluid analysis or cytology again History of malignant left-sided pleural effusion, requiring frequent previous thoracentesis, and eventual Pleurx catheter insertion on 01/14/2024. Patient has been draining her catheter weekly, approximately 100 mL of fluid drained each time. No change in pleural fluid consistency or color. Acute on chronic dyspnea, secondary to above Metastatic breast cancer, most recent PET scan performed on 12/03/2023 identified new foci of uptake within the mediastinum and hilar lymph nodes, as well as new foci within the liver, osseous lesions including thoracic vertebral bodies and right ilium and left anterior rib and, as well as persistent uptake in the distal sigmoid colon, these findings are suspicious for disease progression and metastasis. Patient has reportedly started on chemotherapy, which is being directed by her oncologist. History of left-sided mastectomy, secondary to above Severe chronic obstructive pulmonary disease, most recent FEV1 47% of predicted, stable Chronic hypoxemic respiratory failure, maintained on 1 L/min nasal cannula while at home Former tobacco smoker, quitting approximately 2 months ago History of meningitis History of ovarian cyst Severe protein calorie malnutrition Plan: The patient was seen and evaluated Chest x-ray, labs and medications reviewed No pneumothorax postthoracentesis yesterday Continue bronchodilators as needed Encourage increased oral intake Medical oncology following Titrate down the FiO2 as tolerated Increase activity as tolerated Cleared for discharge from the pulmonary standpoint I have personally seen and examined the patient, performed the documentation and the assessment and plan as written. Number of minutes spent on the visit: 10.
[2024-02-25 15:30] VITALS: BMI 14.4
--- NOTE | 2024-02-25 23:50 | P.PN ---
Subjective Progress Note Date: 02/25/24 68-year-old female with a past medical history of triple negative breast cancer currently on eribulin status post C2 D8, prior history of left pleural effusion with positive margin cells, patient does have left-sided Pleurx catheter placed on 01/14/2024, anxiety and prior history of smoking presents to ER with complaints of abdominal pain and constipation. Patient has not had a bowel meant for the last 6 days prior to admission. Otherwise patient denied any complaints of nausea or vomiting or diarrhea. Decreased oral intake and eventually came to ER. Patient was given enema last night and was able to have a good bowel movement. Patient otherwise denied any complaints of fever or chills. No cough or sputum production. Chest x-ray showed moderate vascular congestion and bilateral pleural effusions. CT of the abdomen pelvis was done which showed no acute appendicitis. Dependent airspace consolidation send with the large right and small left pleural effusions consistent with severe multilobar pneumonia and bilateral parapneumonic effusions. Left-sided chest tube. Right port a catheter Laboratory data showed WBC 10.7 hemoglobin 12.0 and platelets 254, sodium 133 potassium 4.3 chloride 101 bicarb is 26 BUN 12 and creatinine 0.38 and blood sugar 108 Procalcitonin level 0.05 Albumin 3.1 Urinalysis negative for infection. Moderate fecal retention correlate for constipation. No small bowel obstruction. No free air. Chest/ultrasound showed right-sided marked for possible thoracentesis. Laboratory data showed WBC 10.7 hemoglobin 12.0 and platelets 254 t is a 02/25/2024 Patient is lying in the bed. Awake alert and oriented x 3. No complaints of chest pain. Breathing status is much improved. Currently requiring 2 L oxygen via nasal cannula. Patient has been afebrile. Did have a bowel movement today. No complaints of abdominal pain. Patient is s/p right thoracentesis on 02/24/2024 Laboratory showed WBC 6.3 hemoglobin 10.9 and platelets 220 BUN 3.9 and creatinine 0.4 and calcium 7.8 potassium 4.0 sodium 141 Blood pressure is 108 over 67 mmHg. Objective - Vital Signs Vital signs: Vital Signs Temp 98.9 F 02/25/24 07:28 Pulse 94 02/25/24 07:28 Resp 24 02/25/24 07:28 BP 108/67 02/25/24 07:28 Pulse Ox 95 02/25/24 08:17 FiO2 Intake & Output 02/24/24 02/25/24 02/25/24 18:59 06:59 18:59 Output Total 2 Balance -2 Weight 38.102 kg Output: Stool 2 Other: # Voids 3 # Bowel Movements 1 # Emes[place] 0 - Exam PHYSICAL EXAMINATION: Patient is lying in the bed comfortably, no acute distress, awake alert and oriented. Cachectic HEENT: Normocephalic. Neck is supple. Pupils reactive. Nostrils clear. Oral cavity is moist. Neck reveals no JVD, carotid bruits, or thyromegaly. CHEST EXAMINATION: Trachea is central. Symmetrical expansion. No wheezing or rhonchi. Nonlabored breathing.. CARDIAC: Normal S1, S2 with no gallops. No murmurs ABDOMEN: Soft. Bowel sounds present no organomegaly. No abdominal bruits. Extremities: reveal no edema. No clubbing or cyanosis Neurologically awake, alert, oriented x3 with well-coordinated movements. No gross focal deficits noted Skin: No rash or skin lesions. Psychiatric: Coperative. Nonsuicidal Musculoskeletal: No joint swelling or deformity. - Labs CBC & Chem 7: 02/25/24 06:49 02/25/24 06:49 Assessment and Plan Assessment: Abdominal pain secondary to constipation and fecal retention status post enema. Moderate to large right pleural effusion which is new History of left-sided pleural effusion status post Pleurx catheter placement and has been draining weekly at home. Fluid cytology was positive for malignancy. Triple negative metastatic breast cancer status post left mastectomy on 12/03/2023, patient is currently on chemotherapy. COPD Chronic hypoxic respiratory failure on 1 L oxygen at home Prior history of smoking Severe protein calorie malnutrition DVT prophylaxis heparin subcu Plan: Patient will be continued on oxygen supplementation as needed. Status post right thoracentesis by pulmonary. Encourage incentive spirometry and follow-up closely. Will be continued on stool softeners and bowel regimen. Patient did have another bowel movement today. Continue with pain management. Oncology and pulmonary is on board. Anticipate discharge in next 24 hours Time with Patient: Greater than 30
[2024-02-26 10:52] LABS: BUN/Creat Ratio 13.25 Ratio (12.00-20.00); Blood Urea Nitrogen 5.3 mg/dL (9.0-27.0); Calcium 8.6 mg/dL (8.7-10.3); Chloride 104 mmol/L (96-109); Glucose 84 mg/dL (70-110); Potassium 4.3 mmol/L (3.5-5.5); Sodium 140 mmol/L (135-145)
--- NOTE | 2024-02-26 12:55 | P.PN ---
Subjective Progress Note Date: 02/26/24 This is a 68-year-old white female with past medical history significant for metastatic breast cancer. She is follows with her oncologist Dr. Dee. Reportedly, currently on chemotherapy with 2 weeks on and 1 week off. Of note, she was having recurrent left-sided pleural effusions, requiring frequent tho racentesis. 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 Patient did have a left-sided Pleurx catheter inserted by cardiothoracic surgery on 01/14/2024. Currently, she has been draining approximately every week. Draining approximately 100 mL of fluid each time. Fluid described as brown to red in color. She also has a history of COPD with an FEV1 47% of predicted. Combined restrictive process secondary to patient's malignancy and effusions. Patient has been using [place] 10 mg tabs every 6 hours at home for chronic pain related to her malignancy. She had developed some constipation at home. Had not had a normal bowel movement in over 6 days. Subsequently developed some lower abdominal pain. No nausea, vomiting, diarrhea. Appetite has been poor. She did try to give herself a enema at home, which was not effective. Subsequently, came to the emergency room. CT of the abdomen and pelvis on arrival showed moderate fecal retention. No obvious acute intra-abdominal findings. No small bowel obstruction. No free air. There is an enlarged moderate to large right-sided effusion. There is a trace left-sided effusion and likely some associated atelectasis. Pneumonia is felt to be less likely in the absence of symptoms. Left-sided Pleurx catheter is in place. The patient is currently in the emergency room, room 17. She is lying in bed on 2 L/min nasal cannula. SpO2 98%. She is chronically oxygen dependent on 1 L/min nasal cannula at home. Her shortness of breath may be slightly worse than her baseline dyspnea. Particularly with exertion. She has chronic left-sided chest pain. She does have a chronic cough, with no significant amount of sputum production. No hemoptysis. No fevers. She is in good spirits. Her abdominal pain has slightly subsided. Abdomen is soft and does not appear acute. She did have a small formed bowel movement while in the emergency room. CBC on arrival: WBC count 10.7, hemoglobin 12, hematocrit 36.8, platelets 254. CMP also unremarkable. LFTs not elevated. Total bilirubin one 0.3. Pancreatic enzymes not elevated. Normal saline infusing at 75 mL/h. Vital signs are stable. The patient is seen today February 25, 2024 in follow-up on the regular medical floor. She is currently resting fairly comfortably in bed. Awake and alert in no acute distress. She is maintaining good O2 saturations in the 90s on 2 L/min per nasal cannula. Normal saline at 50 MLS per hour. White count 6.3. Hemoglobin 10.9. Platelets 220. Sodium 141. Potassium 4.0. Bicarb 25. BUN 4. Creatinine 0.4. Glucose 79. Urinalysis clean. She is continued on albuterol as needed. Heparin for DVT prophylaxis. She did undergo a right- sided thoracentesis yesterday with 1.1 L of fluid removed. Not sent again for cytology or fluid analysis. The patient is seen today February 26, 2024 in follow-up on the regular medical f [place]. She is awake and alert in no acute distress. She is resting comfortably in bed. She is maintaining good O2 saturations in the 90s on 2 L/min per nasal cannula. No IV fluids. Odium 140. Potassium 4.3. Bicarb 27. BUN 5. Creatinine 0.4. Glucose 84. Heparin for DVT prophylaxis. Objective - Vital Signs Vital signs: Vital Signs Temp 98.0 F 02/26/24 08:00 Pulse 83 02/26/24 08:00 Resp 16 02/26/24 08:00 BP 99/64 02/26/24 08:00 Pulse Ox 94 L 02/26/24 08:00 FiO2 Intake & Output 02/25/24 02/26/24 02/26/24 18:59 06:59 18:59 Intake Total 240 Output Total 2 Balance 238 Weight 38.102 kg Intake: Oral 240 Output: Stool 2 Other: # Voids 1 3 - Exam GENERAL EXAM: Alert, pleasant 68-year-old female, resting in bed, on 2 L nasal cannula, comfortable in no apparent distress. HEAD: Normocephalic and atraumatic EYES: Normal reaction of pupils, equal size. NOSE: Clear with pink turbinates. THROAT: No erythema or exudates. NECK: No masses, no JVD. CHEST: Prior left mastectomy. Left-sided Pleurx catheter secured in place. No erythema or drainage at insertion site. LUNGS: Diminished bibasilar lung sounds and left lower lobe inspiratory crackles. CVS: S1 and S2 normal with no audible murmur, regular rhythm. No extra heart sounds ABDOMEN: No hepatosplenomegaly, active bowel sounds, no guarding or rigidity. SPINE: No scoliosis or deformity SKIN: No rashes CENTRAL NERVOUS SYSTEM: No focal deficits, tone is normal in all 4 extremities. EXTREMITIES: There is no peripheral edema, clubbing, or cyanosis. Peripheral pulses are intact. - Labs CBC & Chem 7: 02/25/24 06:49 02/26/24 07:24 Labs: Abnormal Lab Results - Last 24 Hours (Table) 02/26/24 Range/Units 07:24 BUN 5.3 L (9.0-27.0) mg/dL Creatinine 0.4 L (0.6-1.5) mg/dL Calcium 8.6 L (8.7-10.3) mg/dL Assessment and Plan Assessment: Abdominal pain and constipation, exacerbated by chronic opiate use. CT of the abdomen and pelvis on arrival showed moderate fecal retention. No obvious acute intra-abdominal findings. No small bowel obstruction. No free air. Moderate to large right-sided pleural effusion, patient denies prior thoracentesis on this side. Status post right-sided thoracentesis on 02/24/2024 with 1.1 L of fluid removed, not sent for fluid analysis or cytology again History of malignant left-sided pleural effusion, requiring frequent previous thoracentesis, and eventual Pleurx catheter insertion on 01/14/2024. Patient has been draining her catheter weekly, approximately 100 mL of fluid drained each time. No change in pleural fluid consistency or color. Acute on chronic dyspnea, secondary to above Metastatic breast cancer, most recent PET scan performed on 12/03/2023 identified new foci of uptake within the mediastinum and hilar lymph nodes, as well as new foci within the liver, osseous lesions including thoracic vertebral bodies and right ilium and left anterior rib and, as well as persistent uptake in the distal sigmoid colon, these findings are suspicious for disease progression and metastasis. Patient has reportedly started on chemotherapy, which is being directed by her oncologist. History of left-sided mastectomy, secondary to above Severe chronic obstructive pulmonary disease, most recent FEV1 47% of predicted, stable Chronic hypoxemic respiratory failure, maintained on 1 L/min nasal cannula while at home Former tobacco smoker, quitting approximately 2 months ago History of meningitis History of ovarian cyst Severe protein calorie malnutrition Plan: The patient was seen and evaluated Labs and medications reviewed Continue bronchodilators as needed Encourage increased oral intake Titrate down the FiO2 as tolerated Evaluate for possible home oxygen Plan is to return home at discharge Cleared from the pulmonary standpoint This patient was seen independently by the pulmonary nurse practitioner addressing pulmonary issues I have personally seen and examined the patient, performed the documentation and the assessment and plan as written. Number of minutes spent on the visit: 24.
--- NOTE | 2024-02-26 15:33 | XR ---
EXAMINATION TYPE: XR chest 1V portable DATE OF EXAM: 02/26/2024 Comparison: 02/24/2024 Clinical History: 68-year-old female Assess right and left pleural effusions Findings: Right anterior chest wall injection port with catheter tip at the lower SVC. Left basilar chest tube is noted. Heart normal size. Hyperinflation. Diffuse interstitial changes persist. Worsening mid and lower lung opacities. Small to moderate left and increasing moderate right pleural effusions. Impression: 1. COPD with very slight increase in biapical pneumothoraces (On the right 3.0 cm versus 2.6 cm, prev iously. On the left, 2.4 cm versus 1.8 cm, previously). 2. Increasing now small to moderate right pleural effusion. Similar small left pleural effusion with pleural catheter in place. 3. Ongoing interstitial changes but with worsening bibasilar opacities.
--- NOTE | 2024-02-26 16:44 | P.PN ---
Subjective Progress Note Date: 02/26/24 Principal diagnosis: Metastatic triple negative breast cancer -Afebrile, no acute events overnight -Appears much more comfortable today eating lunch without nausea -Following enema on admission, she has had bowel movements -Pain is controlled on [place] -She was having occasional episodes of shortness of breath Objective - Vital Signs Vital signs: Vital Signs Temp 98.1 F 02/26/24 13:14 Pulse 99 02/26/24 15:12 Resp 16 02/26/24 15:12 BP 93/58 02/26/24 13:14 Pulse Ox 94 L 02/26/24 13:14 FiO2 Intake & Output 02/25/24 02/26/24 02/26/24 18:59 06:59 18:59 Intake Total 240 Output Total 2 4 Balance 238 -4 Weight 38.102 kg Intake: Oral 240 Output: Stool 2 4 Other: # Voids 1 3 3 - Constitutional Constitutional Comment(s): Appears much more comfortable on today's visit General appearance: Present: cooperative, no acute distress - EENT Eyes: Present: EOMI - Respiratory Respiratory: bilateral: other (Bibasilar inspiratory crackles) - Cardiovascular Rhythm: regular - Gastrointestinal General gastrointestinal: Present: soft. Absent: distended - Integumentary Integumentary: Absent: rash - Neurologic Neurologic: Present: CNII-XII intact. Absent: focal deficits - Labs CBC & Chem 7: 02/25/24 06:49 02/26/24 07:24 Labs: Abnormal Lab Results - Last 24 Hours (Table) 02/26/24 Range/Units 07:24 BUN 5.3 L (9.0-27.0) mg/dL Creatinine 0.4 L (0.6-1.5) mg/dL Calcium 8.6 L (8.7-10.3) mg/dL Assessment and Plan (1) Nausea & vomiting Current Visit: Yes Status: Acute Code(s): R11.2 - NAUSEA WITH VOMITING, UNSPECIFIED SNOMED Code(s): 34747222 (2) Cancer associated pain Current Visit: Yes Status: Acute Priority: High Code(s): G89.3 - NEOPLASM RELATED PAIN (ACUTE) (CHRONIC) SNOMED Code(s): 42211500043451 (3) Constipation Current Visit: Yes Status: Acute Priority: Medium Code(s): K59.00 - CONSTIPATION, UNSPECIFIED SNOMED Code(s): 58576497 (4) Triple negative breast cancer Current Visit: Yes Status: Acute Priority: High Code(s): C50.919 - MALIGNANT NEOPLASM OF UNSP SITE OF UNSPECIFIED FEMALE BREAST SNOMED Code(s): 817777481 (5) Pleural effusion Current Visit: No Status: Acute Priority: High Code(s): J90 - PLEURAL EFFU [place], NOT ELSEWHERE CLASSIFIED SNOMED Code(s): 92937248 Plan: Pleural effusion -Pulmonary was seen and evaluated patient -Status post 1.1 L thoracentesis on the right -Cytology ordered from pleural fluid was not sent -Unclear if this is reactive due to infectious process or secondary to progressive malignancy -Repeat chest x-ray ordered due to subjective dyspnea reported today -Will attempt to see if pleural fluid from the left Pleurx catheter can be drained for subjective relief -If right pleural fluid is small, she can be discharged from an oncology perspective Metastatic triple neg breast cancer -pt is on eribulin s/p C2 D8 -Previously left pleural fluid was positive for malignancy. If pleural fluid from the right was positive, this would indicate progressive disease on eribulin -Currently no severe hematological toxicities from chemotherapy -She was due for cycle 3 of treatment on 02/24/2024, which we will hold at this time -Follow up with her primary oncologist Dr. Dee is scheduled for 02/29/2024 at 3:15 PM Constipation, nausea -Multiple medications have been ordered for promotion of a bowel movement -Improved following enema and addition of zyprexa 2.5 mg qhs -Continue current bowel regimen and zyprexa for constipation/nausea Regina Ledesma MD
--- NOTE | 2024-02-26 17:21 | P.PN ---
Subjective Progress Note Date: 02/26/24 68-year-old female with a past medical history of triple negative breast cancer currently on eribulin status post C2 D8, prior history of left pleural effusion with positive margin cells, patient does have left-sided Pleurx catheter placed on 01/14/2024, anxiety and prior history of smoking presents to ER with complaints of abdominal pain and constipation. Patient has not had a bowel meant for the last 6 days prior to admission. Otherwise patient denied any complaints of nausea or vomiting or diarrhea. Decreased oral intake and eventually came to ER. Patient was given enema last night and was able to have a good bowel movement. Patient otherwise denied any complaints of fever or chills. No cough or sputum production. Chest x-ray showed moderate vascular congestion and bilateral pleural effusions. CT of the abdomen pelvis was done which showed no acute appendicitis. Dependent airspace consolidation send with the large right and small left pleural effusions consistent with severe multilobar pneumonia and bilateral parapneumonic effusions. Left-sided chest tube. Right port a catheter Laboratory data showed WBC 10.7 hemoglobin 12.0 and platelets 254, sodium 133 potassium 4.3 chloride 101 bicarb is 26 BUN 12 and creatinine 0.38 and blood sugar 108 Procalcitonin level 0.05 Albumin 3.1 Urinalysis negative for infection. Moderate fecal retention correlate for constipation. No small bowel obstruction. No free air. Chest/ultrasound showed right-sided marked for possible thoracentesis. Laboratory data showed WBC 10.7 hemoglobin 12.0 and platelets 254 Objective - Vital Signs Vital signs: Vital Signs Temp 98.0 F 02/26/24 08:00 Pulse 83 02/26/24 08:00 Resp 16 02/26/24 08:00 BP 99/64 02/26/24 08:00 Pulse Ox 94 L 02/26/24 08:00 FiO2 Intake & Output 02/25/24 02/26/24 02/26/24 18:59 06:59 18:59 Intake Total 240 Output Total 2 Balance 238 Weight 38.102 kg Intake: Oral 240 Output: Stool 2 Other: # Voids 1 3 - Exam Patient is lying in the bed comfortably, no acute distress, awake alert and orie nted. Cachectic HEENT: Normocephalic. Neck is supple. Pupils reactive. Nostrils clear. Oral cavity is moist. Neck reveals no JVD, carotid bruits, or thyromegaly. CHEST EXAMINATION: Trachea is central. Symmetrical expansion. No wheezing or rhonchi. Nonlabored breathing.. CARDIAC: Normal S1, S2 with no gallops. No murmurs ABDOMEN: Soft. Bowel sounds present no organomegaly. No abdominal bruits. Extremities: reveal no edema. No clubbing or cyanosis Neurologically awake, alert, oriented x3 with well-coordinated movements. No gross focal deficits noted Skin: No rash or skin lesions. Psychiatric: Coperative. Nonsuicidal Musculoskeletal: No joint swelling or deformity. - Labs CBC & Chem 7: 02/25/24 06:49 02/26/24 07:24 Labs: Abnormal Lab Results - Last 24 Hours (Table) 02/26/24 Range/Units 07:24 BUN 5.3 L (9.0-27.0) mg/dL Creatinine 0.4 L (0.6-1.5) mg/dL Calcium 8.6 L (8.7-10.3) mg/dL Assessment and Plan Assessment: Abdominal pain secondary to constipation and fecal retention status post enema. Moderate to large right pleural effusion which is new History of left-sided pleural effusion status post Pleurx catheter placement and has been draining weekly at home. Fluid cytology was positive for malignancy. Triple negative metastatic breast cancer status post left mastectomy on 12/03/2023, patient is currently on chemotherapy. COPD Chronic hypoxic respiratory failure on 1 L oxygen at home Prior history of smoking Severe protein calorie malnutrition DVT prophylaxis heparin subcu Plan: Patient will be continued on oxygen supplementation as needed. Status post right thoracentesis by pulmonary. Fluid analysis was sent including cytology. Encourage incentive spirometry and follow-up closely. Will be continued on stool softeners and bowel regimen. Patient did have bowel movement with enema. Continue with pain management and follow-up closely. Oncology and pulmonary is on board. Patient is on IV hydration with normal saline at 75 cc/h. Monitor fluid status closely.
[2024-02-26] MEDS: ALBUTEROL NEBULIZED 2.5 MG/3 ML INHALATION PRN (18:51)
--- NOTE | 2024-02-27 08:11 | P.PN ---
Subjective Progress Note Date: 02/27/24 This is a 68-year-old white female with past medical history significant for metastatic breast cancer. She is follows with her oncologist Dr. Dee. Reportedly, currently on chemotherapy with 2 weeks on and 1 week off. Of note, she was having recurrent left-sided pleural effusions, requiring frequent tho racentesis. 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 Patient did have a left-sided Pleurx catheter inserted by cardiothoracic surgery on 01/14/2024. Currently, she has been draining approximately every week. Draining approximately 100 mL of fluid each time. Fluid described as brown to red in color. She also has a history of COPD with an FEV1 47% of predicted. Combined restrictive process secondary to patient's malignancy and effusions. Patient has been using [place] 10 mg tabs every 6 hours at home for chronic pain related to her malignancy. She had developed some constipation at home. Had not had a normal bowel movement in over 6 days. Subsequently developed some lower abdominal pain. No nausea, vomiting, diarrhea. Appetite has been poor. She did try to give herself a enema at home, which was not effective. Subsequently, came to the emergency room. CT of the abdomen and pelvis on arrival showed moderate fecal retention. No obvious acute intra-abdominal findings. No small bowel obstruction. No free air. There is an enlarged moderate to large right-sided effusion. There is a trace left-sided effusion and likely some associated atelectasis. Pneumonia is felt to be less likely in the absence of symptoms. Left-sided Pleurx catheter is in place. The patient is currently in the emergency room, room 17. She is lying in bed on 2 L/min nasal cannula. SpO2 98%. She is chronically oxygen dependent on 1 L/min nasal cannula at home. Her shortness of breath may be slightly worse than her baseline dyspnea. Particularly with exertion. She has chronic left-sided chest pain. She does have a chronic cough, with no significant amount of sputum production. No hemoptysis. No fevers. She is in good spirits. Her abdominal pain has slightly subsided. Abdomen is soft and does not appear acute. She did have a small formed bowel movement while in the emergency room. CBC on arrival: WBC count 10.7, hemoglobin 12, hematocrit 36.8, platelets 254. CMP also unremarkable. LFTs not elevated. Total bilirubin one 0.3. Pancreatic enzymes not elevated. Normal saline infusing at 75 mL/h. Vital signs are stable. The patient is seen today February 25, 2024 in follow-up on the regular medical floor. She is currently resting fairly comfortably in bed. Awake and alert in no acute distress. She is maintaining good O2 saturations in the 90s on 2 L/min per nasal cannula. Normal saline at 50 MLS per hour. White count 6.3. Hemoglobin 10.9. Platelets 220. Sodium 141. Potassium 4.0. Bicarb 25. BUN 4. Creatinine 0.4. Glucose 79. Urinalysis clean. She is continued on albuterol as needed. Heparin for DVT prophylaxis. She did undergo a right- sided thoracentesis yesterday with 1.1 L of fluid removed. Not sent again for cytology or fluid analysis. The patient is seen today February 26, 2024 in follow-up on the regular medical f [place]. She is awake and alert in no acute distress. She is resting comfortably in bed. She is maintaining good O2 saturations in the 90s on 2 L/min per nasal cannula. No IV fluids. Odium 140. Potassium 4.3. Bicarb 27. BUN 5. Creatinine 0.4. Glucose 84. Heparin for DVT prophylaxis. The patient is seen today February 27, 2024 in follow-up on the regular medical floor. Resting comfortably in bed. Awake and alert in no acute distress. Maintaining good O2 saturations in the 90s on 2 L/min per nasal cannula. Her chest x-ray continues show evidence of COPD with slight increase in biapical pneumothoraxes the right measuring 3.0 cm and the left measuring 2.4 cm. Small to moderate right pleural effusion. Similar as small left pleural effusion with Pleurx catheter in place. Ongoing interstitial changes. Today's labs are pending. She remains on bronchodilators as needed. Heparin for DVT prophylaxis. Objective - Vital Signs Vital signs: Vital Signs Temp 98.4 F 02/27/24 02:00 Pulse 78 02/27/24 02:00 Resp 16 02/27/24 02:00 BP 99/64 02/27/24 02:00 Pulse Ox 95 02/27/24 02:00 FiO2 Intake & Output 02/26/24 02/27/24 02/27/24 18:59 06:59 18:59 Intake Total 1020 590 Output Total 4 Balance 1016 590 Intake: Oral 1020 590 Output: Stool 4 Other: # Voids 3 2 - Exam GENERAL EXAM: Alert, 68-year-old female, on 2 L nasal cannula, comfortable in no apparent distress. HEAD: Normocephalic and atraumatic EYES: Normal reaction of pupils, equal size. NOSE: Clear with pink turbinates. THROAT: No erythema or exudates. NECK: No masses, no JVD. CHEST: Prior left mastectomy. Left-sided Pleurx catheter secured in place. LUNGS: Diminished bibasilar lung sounds and left lower lobe inspiratory crackles. CVS: S1 and S2 normal with no audible murmur, regular rhythm. No extra heart sounds ABDOMEN: No hepatosplenomegaly, active bowel sounds, no guarding or rigidity. SPINE: No scoliosis or deformity SKIN: No rashes CENTRAL NERVOUS SYSTEM: No focal deficits, tone is normal in all 4 extremities. EXTREMITIES: There is no peripheral edema, clubbing, or cyanosis. Peripheral pulses are intact. - Labs CBC & Chem 7: 02/25/24 06:49 02/26/24 07:24 Labs: Abnormal Lab Results - Last 24 Hours (Table) 02/26/24 Range/Units 07:24 BUN 5.3 L (9.0-27.0) mg/dL Creatinine 0.4 L (0.6-1.5) mg/dL Calcium 8.6 L (8.7-10.3) mg/dL Assessment and Plan Assessment: Abdominal pain and constipation, exacerbated by chronic opiate use. CT of the abdomen and pelvis on arrival showed moderate fecal retention. No obvious acute intra-abdominal findings. No small bowel obstruction. No free air. Moderate to large right-sided pleural effusion, patient denies prior thoracentesis on this side. Status post right-sided thoracentesis on 02/24/2024 with 1.1 L of fluid removed, not sent for fluid analysis or cytology again Bilateral apical pneumothoraces History of malignant left-sided pleural effusion, requiring frequent previous thoracentesis, and eventual Pleurx catheter insertion on 01/14/2024. Patient has been draining her catheter weekly, approximately 100 mL of fluid drained each time. No change in pleural fluid consistency or color. Acute on chronic dyspnea, secondary to above Metastatic breast cancer, most recent PET scan performed on 12/03/2023 identified new foci of uptake within the mediastinum and hilar lymph nodes, as well as new foci within the liver, osseous lesions including thoracic vertebral bodies and right ilium and left anterior rib and, as well as persistent uptake in the distal sigmoid colon, these findings are suspicious for disease progression and metastasis. Patient has reportedly started on chemotherapy, which is being directed by her oncologist. History of left-sided mastectomy, secondary to above Severe chronic obstructive pulmonary disease, most recent FEV1 47% of predicted, stable Chronic hypoxemic respiratory failure, maintained on 1 L/min nasal cannula while at home Former tobacco smoker, quitting approximately 2 months ago History of meningitis History of ovarian cyst Severe protein calorie malnutrition Plan: The patient was seen and evaluated Chest x-ray and medications reviewed Currently stable on 2 L nasal cannula Evaluate for possible home oxygen No new complaints of shortness of breath Chest x-ray reviewed with Dr. Fuentes Repeat chest x-ray in a.m. This patient was seen independently by the pulmonary nurse practitioner addressing pulmonary issues I have personally seen and examined the patient, performed the documentation and the assessment and plan as written. Number of minutes spent on the visit: 23.
[2024-02-27 09:23] LABS: Basophils # (A) 0.05 X 10*3/uL (0.00-0.10); Basophils % (A) 0.8 %; Blood Urea Nitrogen 6.9 mg/dL (9.0-27.0); Calcium 8.5 mg/dL (8.7-10.3); Carbon Dioxide 26.9 mmol/L (21.6-31.8); Chloride 101 mmol/L (96-109); Eosinophils # (A) 0 X 10*3/uL (0.04-0.35); Eosinophils % (A) 0 %; Glucose 87 mg/dL (70-110); HCT 32.5 % (37.2-46.3); HGB 10.7 g/dL (12.0-15.0); Lymphocytes # (A) 0.98 X 10*3/uL (0.90-5.00); Lymphocytes % (A) 16.4 %; MCH 32.3 pg (27.0-32.0); MCHC 32.9 g/dL (32.0-37.0); MCV 98.2 FL (80.0-97.0); Mean Platelet Volume 9.6 FL (9.5-12.2); Monocytes # (A) 0.75 X 10*3/uL (0.20-1.00); Monocytes % (A) 12.6 %; NRBC Per 100 WBC 0 X 10*3/uL (0.00-0.01); Neutrophils # (A) 4.14 X 10*3/uL (1.80-7.70); Neutrophils % (A) 69.5 %; Platelet Count 235 X 10*3/uL (140-440); Potassium 4.1 mmol/L (3.5-5.5); RBC 3.31 X 10*6/uL (4.10-5.20); RDW 14.4 % (11.5-14.5); Sodium 136 mmol/L (135-145); WBC 5.96 X 10*3/uL (4.50-10.00)
--- NOTE | 2024-02-27 16:21 | P.PN ---
Subjective Progress Note Date: 02/27/24 68-year-old female with a past medical history of triple negative breast cancer currently on eribulin status post C2 D8, prior history of left pleural effusion with positive margin cells, patient does have left-sided Pleurx catheter placed on 01/14/2024, anxiety and prior history of smoking presents to ER with complaints of abdominal pain and constipation. Patient has not had a bowel meant for the last 6 days prior to admission. Otherwise patient denied any complaints of nausea or vomiting or diarrhea. Decreased oral intake and eventually came to ER. Patient was given enema last night and was able to have a good bowel movement. Patient otherwise denied any complaints of fever or chills. No cough or sputum production. Chest x-ray showed moderate vascular congestion and bilateral pleural effusions. CT of the abdomen pelvis was done which showed no acute appendicitis. Dependent airspace consolidation send with the large right and small left pleural effusions consistent with severe multilobar pneumonia and bilateral parapneumonic effusions. Left-sided chest tube. Right port a catheter Laboratory data showed WBC 10.7 hemoglobin 12.0 and platelets 254, sodium 133 potassium 4.3 chloride 101 bicarb is 26 BUN 12 and creatinine 0.38 and blood sugar 108 Procalcitonin level 0.05 Albumin 3.1 Urinalysis negative for infection. Moderate fecal retention correlate for constipation. No small bowel obstruction. No free air. Chest/ultrasound showed right-sided marked for possible thoracentesis. Laboratory data showed WBC 10.7 hemoglobin 12.0 and platelets 254 24-hour interval change 02/27/2024 Patient is seen and evaluated in follow-up on the regular medical floor. Resting comfortably in bed. Awake and alert in no acute distress. Maintaining good O2 saturations in the 90s on 2 L/min per nasal cannula. Her chest x-ray continues show evidence of COPD with slight increase in biapical pneumothoraxes the right measuring 3.0 cm and the left measuring 2.4 cm. Small to moderate right pleural effusion. Similar as small left pleural effusion with Pleurx catheter in place. Ongoing interstitial changes. Today's labs are pending. She remains on bronchodilators as needed. Heparin for DVT prophylaxis. -- Pulmonary on board and recommending to evaluate for possible home oxygen Objective - Vital Signs Vital signs: Vital Signs Temp 98.7 F 02/27/24 07:40 Pulse 77 02/27/24 07:40 Resp 18 04/27/24 07:40 BP 94/64 02/27/24 07:40 Pulse Ox 92 L 02/27/24 07:40 FiO2 Intake & Output 02/26/24 02/27/24 02/27/24 18:59 06:59 18:59 Intake Total 1020 590 Output Total 4 Balance 1016 590 Intake: Oral 1020 590 Output: Stool 4 Other: # Voids 3 2 - Exam Patient is lying in the bed comfortably, no acute distress, awake alert and oriented. Cachectic HEENT: Normocephalic. Neck is supple. Pupils reactive. Nostrils clear. Oral cavity is moist. Neck reveals no JVD, carotid bruits, or thyromegaly. CHEST EXAMINATION: Trachea is central. Symmetrical expansion. No wheezing or rhonchi. Nonlabored breathing.. CARDIAC: Normal S1, S2 with no gallops. No murmurs ABDOMEN: Soft. Bowel sounds present no organomegaly. No abdominal bruits. Extremities: reveal no edema. No clubbing or cyanosis Neurologically awake, alert, oriented x3 with well-coordinated movements. No gross focal deficits noted Skin: No rash or skin lesions. Psychiatric: Coperative. Nonsuicidal Musculoskeletal: No joint swelling or deformity. - Labs CBC & Chem 7: 02/27/24 04:03 02/27/24 04:03 Labs: Abnormal Lab Results - Last 24 Hours (Table) 02/27/24 02/27/24 Range/Units 04:03 04:03 RBC 3.31 L (4.10-5.20) X 10*6/uL Hgb 10.7 L (12.0-15.0) g/dL Hct 32.5 L (37.2-46.3) % MCV 98.2 H (80.0-97.0) FL MCH 32.3 H (27.0-32.0) pg Eosinophils # 0 L (0.04-0.35) X 10*3/uL BUN 6.9 L (9.0-27.0) mg/dL Creatinine 0.3 L (0.6-1.5) mg/dL BUN/Creatinine Ratio 23.00 H (12.00-20.00) Ratio Calcium 8.5 L (8.7-10.3) mg/dL Assessment and Plan Assessment: Abdominal pain secondary to constipation and fecal retention status post enema. Moderate to large right pleural effusion which is new History of left-sided pleural effusion status post Pleurx catheter placement and has been draining weekly at home. Fluid cytology was positive for malignancy. Triple negative metastatic breast cancer status post left mastectomy on 12/03/2023, patient is currently on chemotherapy. COPD Chronic hypoxic respiratory failure on 1 L oxygen at home Prior history of smoking Severe protein calorie malnutrition DVT prophylaxis heparin subcu Plan: Patient will be continued on oxygen supplementation as needed. Status post right thoracentesis by pulmonary. Fluid analysis was sent including cytology. Encourage incentive spirometry and follow-up closely. Will be continued on stool softeners and bowel regimen. Patient did have bowel movement with enema. Continue with pain management and follow-up closely. Oncology and pulmonary is on board. Patient is on IV hydration with normal saline at 75 cc/h. Monitor fluid status closely.
--- NOTE | 2024-02-28 08:00 | P.PN ---
Subjective Progress Note Date: 02/28/24 This is a 68-year-old white female with past medical history significant for metastatic breast cancer. She is follows with her oncologist Dr. Dee. Reportedly, currently on chemotherapy with 2 weeks on and 1 week off. Of note, she was having recurrent left-sided pleural effusions, requiring frequent tho racentesis. 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 Patient did have a left-sided Pleurx catheter inserted by cardiothoracic surgery on 01/14/2024. Currently, she has been draining approximately every week. Draining approximately 100 mL of fluid each time. Fluid described as brown to red in color. She also has a history of COPD with an FEV1 47% of predicted. Combined restrictive process secondary to patient's malignancy and effusions. Patient has been using [place] 10 mg tabs every 6 hours at home for chronic pain related to her malignancy. She had developed some constipation at home. Had not had a normal bowel movement in over 6 days. Subsequently developed some lower abdominal pain. No nausea, vomiting, diarrhea. Appetite has been poor. She did try to give herself a enema at home, which was not effective. Subsequently, came to the emergency room. CT of the abdomen and pelvis on arrival showed moderate fecal retention. No obvious acute intra-abdominal findings. No small bowel obstruction. No free air. There is an enlarged moderate to large right-sided effusion. There is a trace left-sided effusion and likely some associated atelectasis. Pneumonia is felt to be less likely in the absence of symptoms. Left-sided Pleurx catheter is in place. The patient is currently in the emergency room, room 17. She is lying in bed on 2 L/min nasal cannula. SpO2 98%. She is chronically oxygen dependent on 1 L/min nasal cannula at home. Her shortness of breath may be slightly worse than her baseline dyspnea. Particularly with exertion. She has chronic left-sided chest pain. She does have a chronic cough, with no significant amount of sputum production. No hemoptysis. No fevers. She is in good spirits. Her abdominal pain has slightly subsided. Abdomen is soft and does not appear acute. She did have a small formed bowel movement while in the emergency room. CBC on arrival: WBC count 10.7, hemoglobin 12, hematocrit 36.8, platelets 254. CMP also unremarkable. LFTs not elevated. Total bilirubin one 0.3. Pancreatic enzymes not elevated. Normal saline infusing at 75 mL/h. Vital signs are stable. The patient is seen today February 25, 2024 in follow-up on the regular medical floor. She is currently resting fairly comfortably in bed. Awake and alert in no acute distress. She is maintaining good O2 saturations in the 90s on 2 L/min per nasal cannula. Normal saline at 50 MLS per hour. White count 6.3. Hemoglobin 10.9. Platelets 220. Sodium 141. Potassium 4.0. Bicarb 25. BUN 4. Creatinine 0.4. Glucose 79. Urinalysis clean. She is continued on albuterol as needed. Heparin for DVT prophylaxis. She did undergo a right- sided thoracentesis yesterday with 1.1 L of fluid removed. Not sent again for cytology or fluid analysis. The patient is seen today February 26, 2024 in follow-up on the regular medical [place]. She is awake and alert in no acute distress. She is resting comfortably in bed. She is maintaining good O2 saturations in the 90s on 2 L/min per nasal cannula. No IV fluids. Odium 140. Potassium 4.3. Bicarb 27. BUN 5. Creatinine 0.4. Glucose 84. Heparin for DVT prophylaxis. The patient is seen today February 27, 2024 in follow-up on the regular medical floor. Resting comfortably in bed. Awake and alert in no acute distress. Maintaining good O2 saturations in the 90s on 2 L/min per nasal cannula. Her chest x-ray continues show evidence of COPD with slight increase in biapical pneumothoraxes the right measuring 3.0 cm and the left measuring 2.4 cm. Small to moderate right pleural effusion. Similar as small left pleural effusion with Pleurx catheter in place. Ongoing interstitial changes. Today's labs are pending. She remains on bronchodilators as needed. Heparin for DVT prophylaxis. The patient is seen today February 28, 2024 in follow-up on the regular medical [facility] or. She is awake and alert in no acute distress. Resting comfortably in bed. She feels a bit more short of breath today compared to yesterday. She is maintaining good O2 saturations in the 90s on 2 L/min per nasal cannula. Follow-up chest x-rayshows stable small bi apical pneumothoraces. Some increased right pleural effusion. Recent labs revealed a white count of 5.9. Hemoglobin 10.7. Platelets 235. Sodium 136. Potassium 4.1. Bicarb 27. BUN 7. Creatinine 0.3. Glucose 87. She remains on albuterol as needed. Heparin for DVT prophylaxis. Pain controlled with [place] and morphine. Objective - Vital Signs Vital signs: Vital Signs Temp 98.0 F 02/28/24 02:00 Pulse 75 02/28/24 02:00 Resp 16 02/28/24 02:00 BP 94/55 02/28/24 02:00 Pulse Ox 96 02/28/24 02:00 FiO2 Intake & Output 02/27/24 02/28/24 02/28/24 18:59 06:59 18:59 Other: # Voids 2 - Exam GENERAL EXAM: Alert, very pleasant, cachectic 68-year-old female, on 2 L nasal cannula, resting in bed, comfortable in no apparent distress. HEAD: Normocephalic and atraumatic EYES: Normal reaction of pupils, equal size. NOSE: Clear with pink turbinates. THROAT: No erythema or exudates. NECK: No masses, no JVD. CHEST: Prior left mastectomy. Left-sided Pleurx catheter secured in place. LUNGS: Diminished bibasilar lung sounds and bilateral lower lobe inspiratory crackles. CVS: S1 and S2 normal with no audible murmur, regular rhythm. No extra heart sounds ABDOMEN: No hepatosplenomegaly, active bowel sounds, no guarding or rigidity. SPINE: No scoliosis or deformity SKIN: No rashes CENTRAL NERVOUS SYSTEM: No focal deficits, tone is normal in all 4 extremities. EXTREMITIES: There is no peripheral edema, clubbing, or cyanosis. Peripheral pulses are intact. - Labs CBC & Chem 7: 02/27/24 04:03 02/27/24 04:03 Labs: Abnormal Lab Results - Last 24 Hours (Table) 02/27/24 02/27/24 Range/Units 04:03 04:03 RBC 3.31 L (4.10-5.20) X 10*6/uL Hgb 10.7 L (12.0-15.0) g/dL Hct 32.5 L (37.2-46.3) % MCV 98.2 H (80.0-97.0) FL MCH 32.3 H (27.0-32.0) pg Eosinophils # 0 L (0.04-0.35) X 10*3/uL BUN 6.9 L (9.0-27.0) mg/dL Creatinine 0.3 L (0.6-1.5) mg/dL BUN/Creatinine Ratio 23.00 H (12.00-20.00) Ratio Calcium 8.5 L (8.7-10.3) mg/dL Assessment and Plan Assessment: Abdominal pain and constipation, exacerbated by chronic opiate use. CT of the abdomen and pelvis on arrival showed moderate fecal retention. No obvious acute intra-abdominal findings. No small bowel obstruction. No free air Moderate to large right-sided pleural effusion, patient denies prior thoracentesis on this side. Status post right-sided thoracentesis on 02/24/2024 with 1.1 L of fluid removed, not sent for fluid analysis or cytology again Bilateral apical pneumothoraces History of malignant left-sided pleural effusion, requiring frequent previous thoracentesis, and eventual Pleurx catheter insertion on 01/14/2024. Patient has been draining her catheter weekly, approximately 100 mL of fluid drained each time. No change in pleural fluid consistency or color Acute on chronic dyspnea, secondary to above Metastatic breast cancer, most recent PET scan performed on 12/03/2023 identified new foci of uptake within the mediastinum and hilar lymph nodes, as well as new foci within the liver, osseous lesions including thoracic vertebral bodies and right ilium and left anterior rib and, as well as persistent uptake in the distal sigmoid colon, these findings are suspicious for disease progression and metastasis. Patient has reportedly started on chemotherapy, which is being directed by her oncologist. History of left-sided mastectomy, secondary to above Severe chronic obstructive pulmonary disease, most recent FEV1 47% of predicted, stable Chronic hypoxemic respiratory failure, maintained on 1 L/min nasal cannula while at home Former tobacco smoker, quitting approximately 2 months ago History of meningitis History of ovarian cyst Severe protein calorie malnutrition Plan: The patient was seen and evaluated Chest x-ray, labs and medications reviewed No new complaints of shortness of breath Chest x-ray reviewed with Dr. Fuentes May eventually require repeat right-sided thoracentesis or right-sided Pleurx catheter placement This patient was seen independently by the pulmonary nurse practitioner addressing pulmonary issues I have personally seen and examined the patient, performed the documentation and the assessment and plan as written. Number of minutes spent on the visit: 24.
[2024-02-28 10:05] LABS: BUN/Creat Ratio 24.33 Ratio (12.00-20.00); Blood Urea Nitrogen 7.3 mg/dL (9.0-27.0); Calcium 8.7 mg/dL (8.7-10.3); Carbon Dioxide 26.6 mmol/L (21.6-31.8); Chloride 100 mmol/L (96-109); Glucose 107 mg/dL (70-110); Potassium 4.3 mmol/L (3.5-5.5); Sodium 136 mmol/L (135-145)
--- NOTE | 2024-02-28 14:13 | P.PN ---
Subjective Progress Note Date: 02/28/24 68-year-old female with a past medical history of triple negative breast cancer currently on eribulin status post C2 D8, prior history of left pleural effusion with positive margin cells, patient does have left-sided Pleurx catheter placed on 01/14/2024, anxiety and prior history of smoking presents to ER with complaints of abdominal pain and constipation. Patient has not had a bowel meant for the last 6 days prior to admission. Otherwise patient denied any complaints of nausea or vomiting or diarrhea. Decreased oral intake and eventually came to ER. Patient was given enema last night and was able to have a good bowel movement. Patient otherwise denied any complaints of fever or chills. No cough or sputum production. Chest x-ray showed moderate vascular congestion and bilateral pleural effusions. CT of the abdomen pelvis was done which showed no acute appendicitis. Dependent airspace consolidation send with the large right and small left pleural effusions consistent with severe multilobar pneumonia and bilateral parapneumonic effusions. Left-sided chest tube. Right port a catheter Laboratory data showed WBC 10.7 hemoglobin 12.0 and platelets 254, sodium 133 potassium 4.3 chloride 101 bicarb is 26 BUN 12 and creatinine 0.38 and blood sugar 108 Procalcitonin level 0.05 Albumin 3.1 Urinalysis negative for infection. Moderate fecal retention correlate for constipation. No small bowel obstruction. No free air. Chest/ultrasound showed right-sided marked for possible thoracentesis. Laboratory data showed WBC 10.7 hemoglobin 12.0 and platelets 254 24-hour interval change 02/27/2024 Patient is seen and evaluated in follow-up on the regular medical floor. Resting comfortably in bed. Awake and alert in no acute distress. Maintaining good O2 saturations in the 90s on 2 L/min per nasal cannula. Her chest x-ray continues show evidence of COPD with slight increase in biapical pneumothoraxes the right measuring 3.0 cm and the left measuring 2.4 cm. Small to moderate right pleural effusion. Similar as small left pleural effusion with Pleurx catheter in place. Ongoing interstitial changes. Today's labs are pending. She remains on bronchodilators as needed. Heparin for DVT prophylaxis. -- Pulmonary on board and recommending to evaluate for possible home oxygen 24-hour interval change 02/28/2024 Patient is seen and evaluated in follow-up on the regular medical floor. She is awake and alert in no acute distress. Resting comfortably in bed. She feels a bit more short of breath today compared to yesterday. She is maintaining good O2 saturations in the 90s on 2 L/min per nasal cannula. -- Follow-up chest x-rayshows stable small bi apical pneumothoraces. Some increased right pleural effusion. - Recent labs revealed a white count of 5.9. Hemoglobin 10.7. Platelets 235. Sodium 136. Potassium 4.1. Bicarb 27. BUN 7. Creatinine 0.3. Glucose 87. - She remains on albuterol as needed. Heparin for DVT prophylaxis. Pain controlled with [place] and morphine. May eventually require repeat right-sided thoracentesis or right-sided Pleurx catheter placement; pulmonary service on board Objective - Vital Signs Vital signs: Vital Signs Temp 97.9 F 02/28/24 07:14 Pulse 84 02/28/24 07:14 Resp 17 02/28/24 07:14 BP 98/61 02/28/24 07:14 Pulse Ox 96 02/28/24 07:14 FiO2 Intake & Output 02/27/24 02/28/24 02/28/24 18:59 06:59 18:59 Other: # Voids 2 - Exam Patient is lying in the bed comfortably, no acute distress, awake alert and oriented. Cachectic HEENT: Normocephalic. Neck is supple. Pupils reactive. Nostrils clear. Oral cavity is moist. Neck reveals no JVD, carotid bruits, or thyromegaly. CHEST EXAMINATION: Trachea is central. Symmetrical expansion. No wheezing or rhonchi. Nonlabored breathing.. CARDIAC: Normal S1, S2 with no gallops. No murmurs ABDOMEN: Soft. Bowel sounds present no organomegaly. No abdominal bruits. Extremities: reveal no edema. No clubbing or cyanosis Neurologically awake, alert, oriented x3 with well-coordinated movements. No gross focal deficits noted Skin: No rash or skin lesions. Psychiatric: Coperative. Nonsuicidal Musculoskeletal: No joint swelling or deformity. - Labs CBC & Chem 7: 02/27/24 04:03 02/28/24 04:15 Labs: Abnormal Lab Results - Last 24 Hours (Table) 02/28/24 Range/Units 04:15 BUN 7.3 L (9.0-27.0) mg/dL Creatinine 0.3 L (0.6-1.5) mg/dL BUN/Creatinine Ratio 24.33 H (12.00-20.00) Ratio Assessment and Plan Assessment: Abdominal pain secondary to constipation and fecal retention status post enema. Moderate to large right pleural effusion which is new History of left-sided pleural effusion status post Pleurx catheter placement and has been draining weekly at home. Fluid cytology was positive for malignancy. Triple negative metastatic breast cancer status post left mastectomy on 12/03/2023, patient is currently on chemotherapy. COPD Chronic hypoxic respiratory failure on 1 L oxygen at home Prior history of smoking Severe protein calorie malnutrition DVT prophylaxis heparin subcu Plan: Patient will be continued on oxygen supplementation as needed. Status post right thoracentesis by pulmonary. Fluid analysis was sent including cytology. Encourage incentive spirometry and follow-up closely. Will be continued on stool softeners and bowel regimen. Patient did have bowel movement with enema. Continue with pain management and follow-up closely. Oncology and pulmonary is on board. Patient is on IV hydration with normal saline at 75 cc/h. Monitor fluid status closely.
--- NOTE | 2024-02-28 16:43 | XR ---
EXAM: XR chest 1V portable CLINICAL INDICATION:Female, 68 years old with history of Apical pneumothoraces; [facility] COMPARISON: 02/26/2024 TECHNIQUE: Chest single view. FINDINGS: Stable right chest PowerPort with catheter tip over the mid to inferior SVC. Left basilar catheter un changed. Cardiomediastinal silhouette is partially obscured but grossly stable. Similar appearance of the lungs with interstitial densities bilaterally, area of masslike consolidati on over the left midlung zone, bibasilar pleural/parenchymal opacities right greater than left. Right apical pneumothorax and left apical hydropneumothorax are grossly unchanged. Surgical clips in the left axilla. Osseous structures appear grossly stable. IMPRESSION: 1. Lines and tubes in place, as above. 2. Stable cardiopulmonary status, as described.
--- NOTE | 2024-02-29 14:24 | P.PN ---
Subjective Progress Note Date: 02/29/24 No acute events. Patient resting comfortably in bed. Patient reports breathing is mildly worse today than yesterday. No respiratory distress noted. SpO2 98% on 2 L nasal cannula. Chest x-ray yesterday showed stable cardiopulmonary status. No other reported complaints at this time Objective - Vital Signs Vital signs: Vital Signs Temp 98.6 F 02/29/24 12:27 Pulse 100 02/29/24 12:27 Resp 17 02/29/24 12:27 BP 105/65 02/29/24 12:27 Pulse Ox 98 02/29/24 12:27 FiO2 Intake & Output 02/28/24 02/29/24 02/29/24 18:59 06:59 18:59 Other: Voiding Method Toilet # Voids 1 - Constitutional General appearance: Present: thin - EENT Eyes: Present: anicteric sclerae, EOMI ENT: Present: hearing grossly normal - Respiratory Respiratory: right: CTA, left: rales - Cardiovascular Rhythm: regular Heart sounds: normal: S1, S2 - Gastrointestinal General gastrointestinal: Present: soft. Absent: tenderness - Integumentary Integumentary: Absent: cyanotic - Musculoskeletal Musculoskeletal: Present: generalized weakness, strength equal bilaterally - Psychiatric Psychiatric: Present: A&O x's 3 - Labs CBC & Chem 7: 02/27/24 04:03 02/28/24 04:15 - Imaging and Cardiology Chest x-ray: report reviewed Assessment and Plan (1) Constipation Current Visit: Yes Status: Acute Priority: Medium Code(s): K59.00 - CONS TIPATION, UNSPECIFIED SNOMED Code(s): 96371193 (2) Nausea & vomiting Current Visit: Yes Status: Acute Priority: Medium Code(s): R11.2 - NAUSEA WITH VOMITING, UNSPECIFIED SNOMED Code(s): 95601726 (3) Triple negative breast cancer Current Visit: Yes Status: Acute Priority: High Code(s): C50.919 - MA LIGNANT NEOPLASM OF UNSP SITE OF UNSPECIFIED FEMALE BREAST SNOMED Code(s): 466230215 (4) Pleural effusion Current Visit: Yes Status: Acute Priority: High Code(s): J90 - PLEURAL EFFUSION, NOT ELSEWHERE CLASSIFIED SNOMED Code(s): 01335995 Plan: Pleural effusion -Pulmonary following -Status post 1.1 L thoracentesis on the right -Cytology ordered from pleural fluid was not sent -Unclear if this is reactive due to infectious process or secondary to progressive malignancy -Repeat chest x-ray ordered due to subjective dyspnea reported today, CXR stable -100mL drained from left Pleurx catheter last thursday, may benefit from additional drain to see if this provides subjective relief Metastatic triple neg breast cancer -pt is on eribulin s/p C2 D8 -Previously left pleural fluid was positive for malignancy. Prior scans have shown previous right pleural effusion, would not consider this disease progression on eribulin at this time. Will order tumor markers to compare to previous studies; if significantly elevated would have to discuss potential disease progression and other treatment options -Currently no severe hematological toxicities from chemotherapy -She was due for cycle 3 of treatment on 02/24/2024, which we will hold at this time -Will schedule clinic f/u upon discharge prior to proceeding to next cycle Constipation, nausea -Multiple medications have been ordered for promotion of a bowel movement -Improved following enema and addition of zyprexa 2.5 mg qhs -Continue current bowel regimen and zyprexa for constipation/nausea
[2024-02-29] MEDS: droNABinol 2.5 MG CAP PO SCH (18:00)
--- NOTE | 2024-02-29 18:37 | P.PN ---
Subjective Progress Note Date: 02/29/24 This is a 68-year-old white female with past medical history significant for metastatic breast cancer. She is follows with her oncologist Dr. Dee. Reportedly, currently on chemotherapy with 2 weeks on and 1 week off. Of note, she was having recurrent left-sided pleural effusions, requiring frequent th oracentesis. 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 Patient did have a left-sided Pleurx catheter inserted by cardiothoracic surgery on 01/14/2024. Currently, she has been draining approximately every week. Draining approximately 100 mL of fluid each time. Fluid described as brown to red in color. She also has a history of COPD with an FEV1 47% of predicted. Combined restrictive process secondary to patient's malignancy and effusions. Patient has been using Edwards 10 mg tabs every 6 hours at home for chronic pain related to her malignancy. She had developed some constipation at home. Had not had a normal bowel movement in over 6 days. Subsequently developed some lower abdominal pain. No nausea, vomiting, diarrhea. Appetite has been poor. She did try to give herself a enema at home, which was not effective. Subsequently, came to the emergency room. CT of the abdomen and pelvis on arrival showed moderate fecal retention. No obvious acute intra-abdominal findings. No small bowel obstruction. No free air. There is an enlarged moderate to large right-sided effusion. There is a trace left-sided effusion and likely some associated atelectasis. Pneumonia is felt to be less likely in the absence of symptoms. Left-sided Pleurx catheter is in place. The patient is currently in the emergency room, room 17. She is lying in bed on 2 L/min nasal cannula. SpO2 98%. She is chronically oxygen dependent on 1 L/min nasal cannula at home. Her shortness of breath may be slightly worse than her baseline dyspnea. Particularly with exertion. She has chronic left-sided chest pain. She does have a chronic cough, with no significant amount of sputum production. No hemoptysis. No fevers. She is in good spirits. Her abdominal pain has slightly subsided. Abdomen is soft and does not appear acute. She did have a small formed bowel movement while in the emergency room. CBC on arrival: WBC count 10.7, hemoglobin 12, hematocrit 36.8, platelets 254. CMP also unremarkable. LFTs not elevated. Total bilirubin one 0.3. Pancreatic enzymes not elevated. Normal saline infusing at 75 mL/h. Vital signs are stable. The patient is seen today February 25, 2024 in follow-up on the regular medical floor. She is currently resting fairly comfortably in bed. Awake and alert in no acute distress. She is maintaining good O2 saturations in the 90s on 2 L/min per nasal cannula. Normal saline at 50 MLS per hour. White count 6.3. Hemoglobin 10.9. Platelets 220. Sodium 141. Potassium 4.0. Bicarb 25. BUN 4. Creatinine 0.4. Glucose 79. Urinalysis clean. She is continued on albuterol as needed. Heparin for DVT prophylaxis. She did undergo a right- sided thoracentesis yesterday with 1.1 L of fluid removed. Not sent again for cytology or fluid analysis. The patient is seen today February 26, 2024 in follow-up on the regular medical floor. She is awake and alert in no acute distress. She is resting comfortably in bed. She is maintaining good O2 saturations in the 90s on 2 L/min per nasal cannula. No IV fluids. Odium 140. Potassium 4.3. Bicarb 27. BUN 5. Creatinine 0.4. Glucose 84. Heparin for DVT prophylaxis. The patient is seen today February 27, 2024 in follow-up on the regular medical floor. Resting comfortably in bed. Awake and alert in no acute distress. Maintaining good O2 saturations in the 90s on 2 L/min per nasal cannula. Her chest x-ray continues show evidence of COPD with slight increase in biapical pneumothoraxes the right measuring 3.0 cm and the left measuring 2.4 cm. Small to moderate right pleural effusion. Similar as small left pleural effusion with Pleurx catheter in place. Ongoing interstitial changes. Today's labs are pending. She remains on bronchodilators as needed. Heparin for DVT prophylaxis. The patient is seen today February 28, 2024 in follow-up on the regular medical fl oor. She is awake and alert in no acute distress. Resting comfortably in bed. She feels a bit more short of breath today compared to yesterday. She is maintaining good O2 saturations in the 90s on 2 L/min per nasal cannula. Follow-up chest x-rayshows stable small bi apical pneumothoraces. Some increased right pleural effusion. Recent labs revealed a white count of 5.9. Hemoglobin 10.7. Platelets 235. Sodium 136. Potassium 4.1. Bicarb 27. BUN 7. Creatinine 0.3. Glucose 87. She remains on albuterol as needed. Heparin for DVT prophylaxis. Pain controlled with Edwards and morphine. On today's evaluation of 02/29/2024, seen the patient for a follow-up. Overall respiratory status is stable and the patient is currently on oxygen at 2 L nasal cannula with a pulse ox of 98%. The most recent chest x-ray from yesterday shows stable findings with a masslike consolidation in the left midlung area. There is a right apical pneumothorax and left apical pneumothorax which remain essentially unchanged. The patient has a Mediport in the right side. The patient also has a proximal catheter on the left and a small to moderate-sized pleural effusion on the right. The patient has had no labs from today. Labs from yesterday were essentially within normal limits. The last thoracentesis on this patient was on 02/24/2024 with a total of 1.1 L of pleural fluid aspirated from the right lung. The pleural fluid cytology is still pending, I believe the pleural fluid cytology from the right was not sent. Objective - Vital Signs Vital signs: Vital Signs Temp 98.6 F 02/29/24 12:27 Pulse 100 02/29/24 12:27 Resp 17 02/29/24 12:27 BP 105/65 02/29/24 12:27 Pulse Ox 98 02/29/24 12:27 FiO2 Intake & Output 02/28/24 02/29/24 02/29/24 18:59 06:59 18:59 Other: Voiding Method Toilet # Voids 1 - Exam GENERAL EXAM: Alert, very pleasant, cachectic 68-year-old female, on 2 L nasal cannula, resting in bed, comfortable in no apparent distress. HEAD: Normocephalic and atraumatic EYES: Normal reaction of pupils, equal size. NOSE: Clear with pink turbinates. THROAT: No erythema or exudates. NECK: No masses, no JVD. CHEST: Prior left mastectomy. Left-sided Pleurx catheter secured in place. LUNGS: Diminished bibasilar lung sounds and bilateral lower lobe inspiratory crackles. CVS: S1 and S2 normal with no audible murmur, regular rhythm. No extra heart sounds ABDOMEN: No hepatosplenomegaly, active bowel sounds, no guarding or rigidity. SPINE: No scoliosis or deformity SKIN: No rashes CENTRAL NERVOUS SYSTEM: No focal deficits, tone is normal in all 4 extremities. EXTREMITIES: There is no peripheral edema, clubbing, or cyanosis. Peripheral pulses are intact. - Labs CBC & Chem 7: 02/27/24 04:03 02/28/24 04:15 Assessment and Plan Plan: Abdominal pain and constipation, exacerbated by chronic opiate use. CT of the abdomen and pelvis on arrival showed moderate fecal retention. No obvious acute intra-abdominal findings. No small bowel obstruction. No free air Moderate to large right-sided pleural effusion, patient denies prior t horacentesis on this side. Status post right-sided thoracentesis on 02/24/2024 with 1.1 L of fluid removed, not sent for fluid analysis or cytology again Bilateral apical pneumothoraces, slightly larger on the right and the patient is a Pleurx catheter on the left History of malignant left-sided pleural effusion, requiring frequent previous thoracentesis, and eventual Pleurx catheter insertion on 01/14/2024. Patient has been draining her catheter weekly, approximately 100 mL of fluid drained each time. No change in pleural fluid consistency or color Acute on chronic dyspnea, secondary to above Metastatic breast cancer, most recent PET scan performed on 12/03/2023 identified new foci of uptake within the mediastinum and hilar lymph nodes, as well as new foci within the liver, osseous lesions including thoracic vertebral bodies and right ilium and left anterior rib and, as well as persistent uptake in the distal sigmoid colon, these findings are suspicious for disease progression and metastasis. Patient has reportedly started on chemotherapy, which is being directed by her oncologist. History of left-sided mastectomy, secondary to above Severe chronic obstructive pulmonary disease, most recent FEV1 47% of predicted, stable Chronic hypoxemic respiratory failure, maintained on 1 L/min nasal cannula while at home Former tobacco smoker, quitting approximately 2 months ago History of meningitis History of ovarian cyst Severe protein calorie malnutrition Plan: Chest will obtain a follow-up chest x-ray in the morning. Overall respiratory status is stable. Oxygenation is stable and the patient is currently on 2 L of oxygen by nasal cannula. May eventually require repeat right-sided thoracentesis or right-sided Pleurx catheter placement Will monitor the right-sided pneumothorax
--- NOTE | 2024-03-01 03:25 | P.PN ---
Subjective Progress Note Date: 02/29/24 68-year-old female with a past medical history of triple negative breast cancer currently on eribulin status post C2 D8, prior history of left pleural effusion with positive margin cells, patient does have left-sided Pleurx catheter placed on 01/14/2024, anxiety and prior history of smoking presents to ER with complaints of abdominal pain and constipation. Patient has not had a bowel meant for the last 6 days prior to admission. Otherwise patient denied any complaints of nausea or vomiting or diarrhea. Decreased oral intake and eventually came to ER. Patient was given enema last night and was able to have a good bowel movement. Patient otherwise denied any complaints of fever or chills. No cough or sputum production. Chest x-ray showed moderate vascular congestion and bilateral pleural effusions. CT of the abdomen pelvis was done which showed no acute appendicitis. Dependent airspace consolidation send with the large right and small left pleural effusions consistent with severe multilobar pneumonia and bilateral parapneumonic effusions. Left-sided chest tube. Right port a catheter Laboratory data showed WBC 10.7 hemoglobin 12.0 and platelets 254, sodium 133 potassium 4.3 chloride 101 bicarb is 26 BUN 12 and creatinine 0.38 and blood sugar 108 Procalcitonin level 0.05 Albumin 3.1 Urinalysis negative for infection. Moderate fecal retention correlate for constipation. No small bowel obstruction. No free air. Chest/ultrasound showed right-sided marked for possible thoracentesis. Laboratory data showed WBC 10.7 hemoglobin 12.0 and platelets 254 02/27/2024 Patient is seen and evaluated in follow-up on the regular medical floor. Resting comfortably in bed. Awake and alert in no acute distress. Maintaining good O2 saturations in the 90s on 2 L/min per nasal cannula. Her chest x-ray continues show evidence of COPD with slight increase in biapical pneumothoraxes the right measuring 3.0 cm and the left measuring 2.4 cm. Small to moderate rig ht pleural effusion. Similar as small left pleural effusion with Pleurx catheter in place. Ongoing interstitial changes. Today's labs are pending. She remains on bronchodilators as needed. Heparin for DVT prophylaxis. -- Pulmonary on board and recommending to evaluate for possible home oxygen 02/28/2024 Patient is seen and evaluated in follow-up on the regular medical floor. She is awake and alert in no acute distress. Resting comfortably in bed. She feels a bit more short of breath today compared to yesterday. She is maintaining good O2 saturations in the 90s on 2 L/min per nasal cannula. -- Follow-up chest x-rayshows stable small bi apical pneumothoraces. Some increased right pleural effusion. - Recent labs revealed a white count of 5.9. Hemoglobin 10.7. Platelets 235. Sodium 136. Potassium 4.1. Bicarb 27. BUN 7. Creatinine 0.3. Glucose 87. - She remains on albuterol as needed. Heparin for DVT prophylaxis. Pain controlled with [place] and morphine. May eventually require repeat right-sided thoracentesis or right-sided Pleurx catheter placement; pulmonary service on board 02/29/2024 Patient is seen in follow-up with multiple consultations following. Patient being evaluated by pulmonary recommending repeat chest x-ray with concerns of increased right pleural effusion. Patient is status post thoracentesis and does currently have a pigtail catheter on the left side. Patient continues to report nausea and unable to tolerate much oral intake. Will add appetite stimulant and encourage small frequent meals. Oncology following and will follow-up with patient in the outpatient setting regarding follow-up appointments. Encouraged to increase activity as tolerated. Plans on returning home with home care. Will await chest x-ray and discussed with pulmonary regarding discharge planning. Review of systems: Constitutional: No reports of fatigue, fever, or chills Cardiovascular: No reports of chest pain or palpitations Respiratory: No reports of shortness of breath or cough GI: reports of nausea, occasional vomiting, no diarrhea, reports passing gas and not much of an appetite : No reports of dysuria or retention Neurovascular: reports of generalized weakness All medications have been reviewed Physical exam: Patient is lying in the bed comfortably, no acute distress, awake alert and oriented. Cachectic, emaciated, elderly appearing, ill-appearing HEENT: Normocephalic. Neck is supple. Pupils reactive. Nostrils clear. Oral cavity is moist. Neck reveals no JVD, carotid bruits, or thyromegaly. CHEST EXAMINATION: Diminished breath sounds bilaterally, trachea is central. Symmetrical expansion. No wheezing or rhonchi. Nonlabored breathing.. CARDIAC: S1, S2 are muffled ABDOMEN: Soft. Thin. Bowel sounds present no organomegaly. No abdominal bruits. Extremities: reveal no edema. No clubbing or cyanosis. Muscle wasting noted of upper and lower extremities and clavicle area Neurologically awake, alert, oriented x3 with well-coordinated movements. No gross focal deficits noted. Diffusely weak Skin: No rash or skin lesions. Psychiatric: Cooperative. Non-suicidal, anxious Musculoskeletal: No joint swelling or deformity. Assessment: Abdominal pain secondary to constipation and fecal retention status post enema. Moderate to large right pleural effusion which is new, status post thoracentesis on admission, cytology not sent History of left-sided pleural effusion status post Pleurx catheter placement and has been draining weekly at home. Fluid cytology was positive for malignancy. Triple negative metastatic breast cancer status post left mastectomy on 12/03/2023, patient is currently on chemotherapy. COPD, stable Gait dysfunction with generalized weakness Chronic hypoxic respiratory failure on 1 L oxygen at home Prior history of smoking Severe protein calorie malnutrition with a BMI of 14.4 DVT prophylaxis heparin subcu GI prophylaxis Full code Plan: Patient will be continued on oxygen supplementation as needed. Status post right thoracentesis by pulmonary. Fluid cytology was not sent. Patient reports feeling recurrent fullness in the right lung with concerns of worsening effusion. Awaiting reevaluation by pulmonary who is following recommending follow-up chest x-ray in the a.m. Encourage incentive spirometry at least 10 times every hour while awake Will be continued on stool softeners and bowel regimen. Patient did have bowel movement with enema. Will continue with antinausea medication as needed and recommend small frequent meals. Marinol being added as patient has no appetite PT/OT therapy evaluated recommending home with home care Will follow-up with pulmonary after repeat chest x-ray in 24 hours to discuss possible discharge planning Overall prognosis is guarded The impression and plan of care has been dictated by Bessie Gomez, Nurse Practitioner as directed. Dr. Almaz MD I have performed a history and examination and MDM of this patient, discussed the same with the dictator, and agree with the dictator's assessment and plan as written ,documented as a scribe. Based on total visit time, I have performed more than 50% of the visit. Objective - Vital Signs Vital signs: Vital Signs Temp 98.3 F 02/29/24 07:09 Pulse 86 02/29/24 07:09 Resp 17 02/29/24 07:09 BP 102/56 02/29/24 07:09 Pulse Ox 99 02/29/24 07:09 FiO2 Intake & Output 02/28/24 02/29/24 02/29/24 18:59 06:59 18:59 Other: Voiding Method Toilet # Voids 1 - Labs CBC & Chem 7: 02/27/24 04:03 02/28/24 04:15 Labs: Abnormal Lab Results - Last 24 Hours (Table) 02/28/24 Range/Units 04:15 BUN 7.3 L (9.0-27.0) mg/dL Creatinine 0.3 L (0.6-1.5) mg/dL BUN/Creatinine Ratio 24.33 H (12.00-20.00) Ratio
[2024-03-01 08:00] VITALS: RESP 16
--- NOTE | 2024-03-01 08:17 | XR ---
EXAMINATION TYPE: XR chest 1V portable DATE OF EXAM: 03/01/2024 COMPARISON: 02/28/2024 INDICATION: Pleural effusion TECHNIQUE: Single frontal view of the chest is obtained. FINDINGS: The heart size is normal. The pulmonary vasculature is prominent. Port is present on the right with the tip in the distal supe rior vena cava region. There are increased lung markings bilaterally. Rounded density over the right upper lung field measur ing 0.9 cm in size. Right apical pneumothorax is present, unchanged from recent comparison. Loculated effusion at the left apex may be present. A small amount of air may be present. Chest tube is present at the left base unchanged in position. Small left pleural fluid is present. Sm all to moderate right pleural effusion appears stable from comparison IMPRESSION: 1. Small to moderate right and small left pleural effusions. 2. Right apical pneumothorax. Loculated fluid is at the left apex which may contain a small amount of air. 3. Lines and catheters discussed above
[2024-03-01 11:25] LABS: Basophils # (A) 0.05 X 10*3/uL (0.00-0.10); Basophils % (A) 0.5 %; Eosinophils # (A) 0.01 X 10*3/uL (0.04-0.35); Eosinophils % (A) 0.1 %; HCT 32.5 % (37.2-46.3); HGB 10.8 g/dL (12.0-15.0); Lymphocytes # (A) 0.71 X 10*3/uL (0.90-5.00); Lymphocytes % (A) 7.6 %; MCHC 33.2 g/dL (32.0-37.0); MCV 96.4 FL (80.0-97.0); Magnesium 1.9 mg/dL (1.5-2.4); Mean Platelet Volume 9.7 FL (9.5-12.2); Monocytes % (A) 10.6 %; NRBC Per 100 WBC 0 X 10*3/uL (0.00-0.01); Neutrophils # (A) 7.58 X 10*3/uL (1.80-7.70); Neutrophils % (A) 80.7 %; Platelet Count 226 X 10*3/uL (140-440); RBC 3.37 X 10*6/uL (4.10-5.20); RDW 14.5 % (11.5-14.5)
[2024-03-01 11:26] LABS: Blood Urea Nitrogen 14.2 mg/dL (9.0-27.0); Calcium 9.1 mg/dL (8.7-10.3); Carbon Dioxide 26.1 mmol/L (21.6-31.8); Chloride 99 mmol/L (96-109); Glucose 110 mg/dL (70-110); Potassium 4.5 mmol/L (3.5-5.5); Sodium 136 mmol/L (135-145)
[2024-03-01 12:36] VITALS: BP 93/60; PULSE 88; TEMP 97.7
--- NOTE | 2024-03-01 13:47 | P.PN ---
Subjective Progress Note Date: 03/01/24 No acute events. Patient resting comfortably in bed. Patient reports breathing is improved today. No respiratory distress noted. SpO2 96% on 4 L nasal cannula. Repeat chest x-ray today revealed small to moderate right and small left pleural effusions. Right apical pneumothorax. Loculated fluid at the left apex which may contain a small amount of air. No plan for repeat thoracentesis at this time. Plan for discharge today. Objective - Vital Signs Vital signs: Vital Signs Temp 97.7 F 03/01/24 12:11 Pulse 88 03/01/24 12:11 Resp 16 03/01/24 12:11 BP 93/60 03/01/24 12:11 Pulse Ox 95 03/01/24 12:11 FiO2 Intake & Output 02/29/24 03/01/24 03/01/24 18:59 06:59 18:59 Intake Total 240 Balance 240 Weight 38.102 kg Intake: Oral 240 Other: Voiding Method Toilet # Voids 1 - Constitutional General appearance: Present: no acute distress, thin - EENT Eyes: Present: anicteric sclerae, EOMI ENT: Present: hearing grossly normal - Respiratory Details: breathing even and unlabored - Cardiovascular Details: skin warm and dry - Integumentary Integumentary: Absent: cyanotic - Neurologic Neurologic: Present: CNII-XII intact - Musculoskeletal Musculoskeletal: Present: strength equal bilaterally - Psychiatric Psychiatric: Present: A&O x's 3 - Labs CBC & Chem 7: 03/01/24 06:08 03/01/24 06:08 Labs: Abnormal Lab Results - Last 24 Hours (Table) 02/29/24 02/29/24 03/01/24 Range/Units 14:18 14:18 06:08 RBC 3.37 L (4.10-5.20) X 10*6/uL Hgb 10.8 L (12.0-15.0) g/dL Hct 32.5 L (37.2-46.3) % Immature Gran # 0.05 H (0.00-0.04) X 10*3/uL Lymphocytes # 0.71 L (0.90-5.00) X 10*3/uL Eosinophils # 0.01 L (0.04-0.35) X 10*3/uL Creatinine (0.6-1.5) mg/dL BUN/Creatinine Ratio (12.00-20.00) Ratio CA 15-3 Antigen 164.0 H (0.0-32.3) U/mL CA 27-29 235.6 H (<38.6) U/mL 03/01/24 Range/Units 06:08 RBC (4.10-5.20) X 10*6/uL Hgb (12.0-15.0) g/dL Hct (37.2-46.3) % Immature Gran # (0.00-0.04) X 10*3/uL Lymphocytes # (0.90-5.00) X 10*3/uL Eosinophils # (0.04-0.35) X 10*3/uL Creatinine 0.4 L (0.6-1.5) mg/dL BUN/Creatinine Ratio 35.50 H (12.00-20.00) Ratio CA 15-3 Antigen (0.0-32.3) U/mL CA 27-29 (<38.6) U/mL Assessment and Plan (1) Constipation Current Visit: Yes Status: Acute Priority: Medium Code(s): K59.00 - CONSTIPATION, UNSPECIFIED SNOMED Code(s): 39547138 (2) Nausea & vomiting Current Visit: Yes Status: Acute Priority: Medium Code(s): R11.2 - NAUSEA WITH VOMITING, UNSPECIFIED SNOMED Code(s): 71205552 (3) Triple negative breast cancer Current Visit: Yes Status: Acute Priority: High Code(s): C50.919 - MALIGNANT NEOPLASM OF UNSP SITE OF UNSPECIFIED FEMALE BREAST SNOMED Code(s): 188945999 (4) Pleural effusion Current Visit: Yes Status: Acute Priority: High Code(s): J90 - PLEURAL EFFUSION, NOT ELSEWHERE CLASSIFIED SNOMED Code(s): 89539078 Plan: Pleural effusion -Pulmonary following -Status post 1.1 L thoracentesis on the right -Cytology ordered from pleural fluid was not sent -Unclear if this is reactive due to infectious process or secondary to pr ogressive malignancy -100mL drained from left Pleurx catheter last thursday, may benefit from addition al drainage to see if this provides subjective relief -Reports breathing is improved today. No respiratory distress noted. SpO2 96% on 4 L nasal cannula. Repeat chest x-ray today revealed small to moderate right and small left pleural effusions. Right apical pneumothorax. Loculated fluid at the left apex which may contain a small amount of air. No plan for repeat thoracentesis at this time -If right pleural effusion persists/worsens may benefit from pleurx drain. Will continue to monitor in outpt f/u Metastatic triple neg breast cancer -Pt is on eribulin s/p C2 D8 -Previously left pleural fluid was positive for malignancy. Prior scans have shown previous right pleural effusion, would not consider this disease progression on eribulin at this time. Will order tumor markers to compare to previous studies; if significantly elevated would have to consider potential disease progression and discuss other treatment options/goals of care -Currently no severe hematological toxicities from chemotherapy -She was due for cycle 3 of treatment on 02/24/2024, which we will hold at this time -Will schedule clinic f/u next week prior to proceeding to next cycle Constipation, nausea -Multiple medications have been ordered for promotion of a bowel movement -Improved following enema and addition of zyprexa 2.5 mg qhs -Continue current bowel regimen and zyprexa for constipation/nausea
--- NOTE | 2024-03-01 16:11 | P.PN ---
Subjective Progress Note Date: 03/01/24 This is a 68-year-old white female with past medical history significant for metastatic breast cancer. She is follows with her oncologist Dr. Dee. Reportedly, currently on chemotherapy with 2 weeks on and 1 week off. Of note, she was having recurrent left-sided pleural effusions, requiring frequent th oracentesis. 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 Patient did have a left-sided Pleurx catheter inserted by cardiothoracic surgery on 01/14/2024. Currently, she has been draining approximately every week. Draining approximately 100 mL of fluid each time. Fluid described as brown to red in color. She also has a history of COPD with an FEV1 47% of predicted. Combined restrictive process secondary to patient's malignancy and effusions. Patient has been using Broughton 10 mg tabs every 6 hours at home for chronic pain related to her malignancy. She had developed some constipation at home. Had not had a normal bowel movement in over 6 days. Subsequently developed some lower abdominal pain. No nausea, vomiting, diarrhea. Appetite has been poor. She did try to give herself a enema at home, which was not effective. Subsequently, came to the emergency room. CT of the abdomen and pelvis on arrival showed moderate fecal retention. No obvious acute intra-abdominal findings. No small bowel obstruction. No free air. There is an enlarged moderate to large right-sided effusion. There is a trace left-sided effusion and likely some associated atelectasis. Pneumonia is felt to be less likely in the absence of symptoms. Left-sided Pleurx catheter is in place. The patient is currently in the emergency room, room 17. She is lying in bed on 2 L/min nasal cannula. SpO2 98%. She is chronically oxygen dependent on 1 L/min nasal cannula at home. Her shortness of breath may be slightly worse than her baseline dyspnea. Particularly with exertion. She has chronic left-sided chest pain. She does have a chronic cough, with no significant amount of sputum production. No hemoptysis. No fevers. She is in good spirits. Her abdominal pain has slightly subsided. Abdomen is soft and does not appear acute. She did have a small formed bowel movement while in the emergency room. CBC on arrival: WBC count 10.7, hemoglobin 12, hematocrit 36.8, platelets 254. CMP also unremarkable. LFTs not elevated. Total bilirubin one 0.3. Pancreatic enzymes not elevated. Normal saline infusing at 75 mL/h. Vital signs are stable. The patient is seen today February 25, 2024 in follow-up on the regular medical floor. She is currently resting fairly comfortably in bed. Awake and alert in no acute distress. She is maintaining good O2 saturations in the 90s on 2 L/min per nasal cannula. Normal saline at 50 MLS per hour. White count 6.3. Hemoglobin 10.9. Platelets 220. Sodium 141. Potassium 4.0. Bicarb 25. BUN 4. Creatinine 0.4. Glucose 79. Urinalysis clean. She is continued on albuterol as needed. Heparin for DVT prophylaxis. She did undergo a right- sided thoracentesis yesterday with 1.1 L of fluid removed. Not sent again for cytology or fluid analysis. The patient is seen today February 26, 2024 in follow-up on the regular medical floor. She is awake and alert in no acute distress. She is resting comfortably in bed. She is maintaining good O2 saturations in the 90s on 2 L/min per nasal cannula. No IV fluids. Odium 140. Potassium 4.3. Bicarb 27. BUN 5. Creatinine 0.4. Glucose 84. Heparin for DVT prophylaxis. The patient is seen today February 27, 2024 in follow-up on the regular medical floor. Resting comfortably in bed. Awake and alert in no acute distress. Maintaining good O2 saturations in the 90s on 2 L/min per nasal cannula. Her chest x-ray continues show evidence of COPD with slight increase in biapical pneumothoraxes the right measuring 3.0 cm and the left measuring 2.4 cm. Small to moderate right pleural effusion. Similar as small left pleural effusion with Pleurx catheter in place. Ongoing interstitial changes. Today's labs are pending. She remains on bronchodilators as needed. Heparin for DVT prophylaxis. The patient is seen today February 28, 2024 in follow-up on the regular medical fl oor. She is awake and alert in no acute distress. Resting comfortably in bed. She feels a bit more short of breath today compared to yesterday. She is maintaining good O2 saturations in the 90s on 2 L/min per nasal cannula. Follow-up chest x-rayshows stable small bi apical pneumothoraces. Some increased right pleural effusion. Recent labs revealed a white count of 5.9. Hemoglobin 10.7. Platelets 235. Sodium 136. Potassium 4.1. Bicarb 27. BUN 7. Creatinine 0.3. Glucose 87. She remains on albuterol as needed. Heparin for DVT prophylaxis. Pain controlled with Broughton and morphine. On today's evaluation of 02/29/2024, seen the patient for a follow-up. Overall respiratory status is stable and the patient is currently on oxygen at 2 L nasal cannula with a pulse ox of 98%. The most recent chest x-ray from yesterday shows stable findings with a masslike consolidation in the left midlung area. There is a right apical pneumothorax and left apical pneumothorax which remain essentially unchanged. The patient has a Mediport in the right side. The patient also has a proximal catheter on the left and a small to moderate-sized pleural effusion on the right. The patient has had no labs from today. Labs from yesterday were essentially within normal limits. The last thoracentesis on this patient was on 02/24/2024 with a total of 1.1 L of pleural fluid aspirated from the right lung. The pleural fluid cytology is still pending, I believe the pleural fluid cytology from the right was not sent. On today's evaluation of 03/01/2024, the patient is doing well with no specific complaints. No respiratory distress. The patient remains on oxygen at 4 L with a pulse ox of 95%. Repeat chest x-ray was done and showed a stable right-sided pneumothorax which seems to be smaller and a small right-sided pleural effusion. The patient also has a Pleurx catheter on the left. She is quite cachectic and debilitated. Labs from today showed a white cell count of 9.4 hemoglobin of 10.8 and a platelet count of 226. BUN is at 14 with a creatinine of 0.4 and sodium levels at 136. Objective - Vital Signs Vital signs: Vital Signs Temp 97.7 F 03/01/24 12:11 Pulse 88 03/01/24 12:11 Resp 16 03/01/24 12:11 BP 93/60 03/01/24 12:11 Pulse Ox 95 03/01/24 12:11 FiO2 Intake & Output 02/29/24 03/01/24 03/01/24 18:59 06:59 18:59 Intake Total 240 Balance 240 Intake: Oral 240 Other: Voiding Method Toilet # Voids 1 - Exam GENERAL EXAM: Alert, very pleasant, cachectic 68-year-old female, on 2 L nasal cannula, resting in bed, comfortable in no apparent distress. HEAD: Normocephalic and atraumatic EYES: Normal reaction of pupils, equal size. NOSE: Clear with pink turbinates. THROAT: No erythema or exudates. NECK: No masses, no JVD. CHEST: Prior left mastectomy. Left-sided Pleurx catheter secured in place. LUNGS: Diminished bibasilar lung sounds and bilateral lower lobe inspiratory crackles. CVS: S1 and S2 normal with no audible murmur, regular rhythm. No extra heart sounds ABDOMEN: No hepatosplenomegaly, active bowel sounds, no guarding or rigidity. SPINE: No scoliosis or deformity SKIN: No rashes CENTRAL NERVOUS SYSTEM: No focal deficits, tone is normal in all 4 extremities. EXTREMITIES: There is no peripheral edema, clubbing, or cyanosis. Peripheral pulses are intact. - Labs CBC & Chem 7: 03/01/24 06:08 03/01/24 06:08 Labs: Abnormal Lab Results - Last 24 Hours (Table) 02/29/24 02/29/24 03/01/24 Range/Units 14:18 14:18 06:08 RBC 3.37 L (4.10-5.20) X 10*6/uL Hgb 10.8 L (12.0-15.0) g/dL Hct 32.5 L (37.2-46.3) % Immature Gran # 0.05 H (0.00-0.04) X 10*3/uL Lymphocytes # 0.71 L (0.90-5.00) X 10*3/uL Eosinophils # 0.01 L (0.04-0.35) X 10*3/uL Creatinine (0.6-1.5) mg/dL BUN/Creatinine Ratio (12.00-20.00) Ratio CA 15-3 Antigen 164.0 H (0.0-32.3) U/mL CA 27-29 235.6 H (<38.6) U/mL 03/01/24 Range/Units 06:08 RBC (4.10-5.20) X 10*6/uL Hgb (12.0-15.0) g/dL Hct (37.2-46.3) % Immature Gran # (0.00-0.04) X 10*3/uL Lymphocytes # (0.90-5.00) X 10*3/uL Eosinophils # (0.04-0.35) X 10*3/uL Creatinine 0.4 L (0.6-1.5) mg/dL BUN/Creatinine Ratio 35.50 H (12.00-20.00) Ratio CA 15-3 Antigen (0.0-32.3) U/mL CA 27-29 (<38.6) U/mL Assessment and Plan Plan: Abdominal pain and constipation, exacerbated by chronic opiate use. CT of the abdomen and pelvis on arrival showed moderate fecal retention. No obvious acute intra-abdominal findings. No small bowel obstruction. No free air Moderate to large right-sided pleural effusion, patient denies prior thoracentesis on this side. Status post right-sided thoracentesis on 02/24/2024 with 1.1 L of fluid removed, not sent for fluid analysis or cytology again Bilateral apical pneumothoraces, slightly larger on the right and the patient is a Pleurx catheter on the left History of malignant left-sided pleural effusion, requiring frequent previous thoracentesis, and eventual Pleurx catheter insertion on 01/14/2024. Patient has been draining her catheter weekly, approximately 100 mL of fluid drained each time. No change in pleural fluid consistency or color Acute on chronic dyspnea, secondary to above Metastatic breast cancer, most recent PET scan performed on 12/03/2023 identified new foci of uptake within the mediastinum and hilar lymph nodes, as well as new foci within the liver, osseous lesions including thoracic vertebral bodies and right ilium and left anterior rib and, as well as persistent uptake in the distal sigmoid colon, these findings are suspicious for disease progression and metastasis. Patient has reportedly started on chemotherapy, which is being directed by her oncologist. History of left-sided mastectomy, secondary to above Severe chronic obstructive pulmonary disease, most recent FEV1 47% of predicted, stable Chronic hypoxemic respiratory failure, maintained on 1 L/min nasal cannula while at home Former tobacco smoker, quitting approximately 2 months ago History of meningitis History of ovarian cyst Severe protein calorie malnutrition Plan: The patient is to be discharged home today. Outpatient follow-up regarding the right-sided pleural effusion. Consider Pleurx catheter insertion on the right if the patient becomes symptomatic again. The right lung seems to be trapped that the patient developed a loculated pneumothorax following the thoracentesis. Chest x-ray findings from today are stable. Patient can be discharged to be followed up on outpatient basis. Recommend biweekly drainage of the left pleural effusion through the Pleurx catheter. Prognosis remains poor based on the comorbidities, poor baseline performance and functional status. May need a Pleurx catheter insertion on outpatient basis on the right depending on her progress. She will be utilizing oxygen between 2 and 4 L based on her pulse ox on outpatient basis.
== END 2024-03-01 13:50 | disposition home health service (06) | DRG 186 ==
LOC: EC 20:08 → 5NMEDONC 22:38
PROVIDERS: ADMIT Hospitalist; ATTEND Hospitalist
PROC: 0W993ZZ Drainage of Right Pleural Cavity, Percutaneous Approach (ICD-10-PCS; principal; 2024-02-24)
DX: J90 Pleural effusion, not elsewhere classified (principal); E43 Unspecified severe protein-calorie malnutrition; Z68.1 Body mass index [BMI] 19.9 or less, adult; J96.11 Chronic respiratory failure with hypoxia; J93.83 Other pneumothorax; R64 Cachexia; J44.9 Chronic obstructive pulmonary disease, unspecified; K56.41 Fecal impaction; C50.919 Malignant neoplasm of unspecified site of unspecified female breast; G89.3 Neoplasm related pain (acute) (chronic); F41.9 Anxiety disorder, unspecified; Z17.1 Estrogen receptor negative status [ER-]; K12.30 Oral mucositis (ulcerative), unspecified; Z79.890 Hormone replacement therapy; Z79.891 Long term (current) use of opiate analgesic; Z85.3 Personal history of malignant neoplasm of breast; Z86.61 Personal history of infections of the central nervous system; Z87.891 Personal history of nicotine dependence; Z90.12 Acquired absence of left breast and nipple; Z90.710 Acquired absence of both cervix and uterus; Z96.1 Presence of intraocular lens; Z99.81 Dependence on supplemental oxygen; Z98.42 Cataract extraction status, left eye; Z98.41 Cataract extraction status, right eye; T40.605A Adverse effect of unspecified narcotics, initial encounter; X58.XXXA Exposure to other specified factors, initial encounter
CPT/HCPCS: 36415; 71045; 74176; 76604; 80048; 80053; 81003; 82150; 83605; 83690; 83735; 84100; 84145; 85025; 85610; 85730; 86300; 94640; 94760; 96361; 96374; 96375; 96376; 99291

== ENCOUNTER 2024-05-08 13:43 | Inpatient (IN) | payer MEDICARE, OTHER ==
--- NOTE | 2024-05-08 13:48 | ED ---
Weakness HPI - General Stated complaint: Weakness Time Seen by Provider: 05/08/24 13:45 Source: RN notes reviewed, old records reviewed Limitations: no limitations - History of Present Illness Initial comments: This is a 60-year-old female to the ER for evaluation of weakness planes of chest pain back pain abdominal pain mainly left-sided abdominal pain near the insertion site of her Pleurx catheter. She has had this in for weeks with no symptoms pain is been going on for the last few days. Pain is severe and she does have a recent ER visit for this similar pain MD Complaint: generalized weakness (No pain) -: days(s) Severity: severe Severity scale (1-10): 10 Quality: aching Consistency: constant Improves with: none Worsens with: none Context: recent illness, history of similar Associated Symptoms: denies other symptoms - Related Data Home Medications Medication Instructions Recorded Confirmed Albuterol Sulfate [Ventolin HFA] 2 puff INHALATION RT-Q6H PRN 01/01/24 05/15/24 Docusate [Colace] 200 mg PO BID 02/24/24 05/15/24 Levothyroxine Sodium [Synthroid] 88 mcg PO DAILY 02/24/24 05/15/24 polyethylene glycoL 3350 [Miralax] 17 gm PO BID PRN 02/24/24 05/15/24 Ondansetron [Zofran] 4 mg PO QID PRN 03/16/24 05/15/24 LORazepam [Ativan] 1 tab PO BID 04/27/24 05/15/24 ALPRAZolam [Xanax] 0.5 mg PO TID PRN 05/08/24 05/15/24 OLANZapine [ZyPREXA] 2.5 mg PO HS PRN 05/08/24 05/15/24 droNABinol [Marinol] 2.5 mg PO AC-BID 05/08/24 05/15/24 HYDROcodone/APAP 10-325MG [[place] 1 tab PO Q4HR PRN 05/15/24 05/15/24 10-325] Sennosides-Docusate Sodium 1 tab PO BID 05/15/24 05/15/24 [Senokot-S] Previous Rx's Medication Instructions Recorded Famotidine [Pepcid] 20 mg PO BID #60 tab 05/12/24 fentaNYL 25MCG/HR PATCH [[place] 1 patch TRANSDERM Q72H patch 05/12/24 25MCG/HR] Allergies Allergy/AdvReac Type Severity Reaction Status Date / Time No Known Allergies Allergy Verified 05/15/24 10:09 Review of Systems ROS Statement: Those systems with pertinent positive or pertinent negative responses have been documented in the HPI. ROS Other: All systems not noted in ROS Statement are negative. Past Medical History Past Medical History: Cancer, COPD, Eye Disorder Additional Past Medical History / Comment(s): MENINGITIS, 19 YRS OLD ovarian cyst burst., FLOATER RIGHT EYE., LEFT BREAST CANCER - pt had a recent PET scan that showed at spot that they wanted to check out for mets. Recurrent left- sided pleural effusion, R sided pleural effusion. History of Any Multi-Drug Resistant Organisms: None Reported Past Surgical History: Hysterectomy, Tonsillectomy Additional Past Surgical History / Comment(s): HARITHA CATARACTS with lens implants, Mastectomy, March 2023; left-sided Pleurx catheter placed January 14, 2024, Port- a -cath. Past Anesthesia/Blood Transfusion Reactions: No Reported Reaction Additional Past Anesthesia/Blood Transfusion Reaction / Comment(s): HX OF BLOOD TRANSFUSION-NO REACTION Smoking Status: Former smoker - Past Family History Father History Unknown: Yes Family Medical History: Cancer Additional Family Medical History / Comment(s): PANCREATIC CANCER Brother(s) History Unknown: Yes Family Medical History: Cancer, Thyroid Disorder Additional Family Medical History / Comment(s): STOMACH CANCER General Exam General appearance: alert, in no apparent distress, anxious Head exam: Present: atraumatic, normocephalic, normal inspection Eye exam: Present: normal appearance, PERRL, EOMI. Absent: scleral icterus, conjunctival injection, periorbital swelling ENT exam: Present: normal exam, mucous membranes moist Neck exam: Present: normal inspection. Absent: tenderness, meningismus, lymphadenopathy Respiratory exam: Present: normal lung sounds bilaterally. Absent: respiratory distress, wheezes, rales, rhonchi, stridor Cardiovascular Exam: Present: regular rate, normal rhythm, normal heart sounds. Absent: systolic murmur, diastolic murmur, rubs, gallop, clicks GI/Abdominal exam: Present: soft, normal bowel sounds. Absent: distended, tenderness, guarding, rebound, rigid Extremities exam: Present: normal inspection, full ROM, normal capillary refill. Absent: tenderness, pedal edema, joint swelling, calf tenderness Back exam: Present: normal inspection Neurological exam: Present: alert, oriented X3, CN II-XII intact Psychiatric exam: Present: normal affect, normal mood Skin exam: Present: warm, dry, intact, normal color. Absent: rash Course Vital Signs 05/08/24 05/08/24 05/08/24 13:46 15:00 15:09 Temperature 98.3 F Pulse Rate 94 79 80 Pulse Rate [ Pulse Oximetery ] Respiratory 22 Rate Blood Pressure 99/77 Blood Pressure [Right Arm] O2 Sat by Pulse 99 Oximetry 05/08/24 05/08/24 05/08/24 16:41 17:50 18:13 Temperature Pulse Rate 93 86 76 Pulse Rate [ Pulse Oximetery ] Respiratory 26 H 18 24 Rate Blood Pressure 107/73 115/78 139/94 Blood Pressure [Right Arm] O2 Sat by Pulse 96 97 98 Oximetry 05/08/24 05/08/24 05/08/24 21:00 22:00 23:00 Temperature Pulse Rate 73 90 89 Pulse Rate [ Pulse Oximetery ] Respiratory 23 24 19 Rate Blood Pressure 122/73 115/70 133/82 Blood Pressure [Right Arm] O2 Sat by Pulse 100 98 97 Oximetry 05/09/24 05/09/24 05/09/24 00:00 01:00 05:00 Temperature Pulse Rate 83 89 68 Pulse Rate [ Pulse Oximetery ] Respiratory 24 20 16 Rate Blood Pressure 112/73 117/80 93/70 Blood Pressure [Right Arm] O2 Sat by Pulse 97 97 99 Oximetry 05/09/24 05/09/24 05/09/24 06:42 08:12 08:15 Temperature Pulse Rate 86 77 Pulse Rate [ Pulse Oximetery ] Respiratory 20 Rate Blood Pressure 90/72 Blood Pressure [Right Arm] O2 Sat by Pulse 100 100 Oximetry 05/09/24 05/09/24 05/09/24 08:24 08:52 10:00 Temperature Pulse Rate 69 106 H 81 Pulse Rate [ Pulse Oximetery ] Respiratory 16 20 Rate Blood Pressure 111/81 111/81 Blood Pressure [Right Arm] O2 Sat by Pulse 96 Oximetry 05/09/24 05/09/24 05/09/24 12:47 17:51 19:22 Temperature 98.5 F Pulse Rate 99 96 98 Pulse Rate [ Pulse Oximetery ] Respiratory 20 18 Rate Blood Pressure 123/97 111/69 109/87 Blood Pressure [Right Arm] O2 Sat by Pulse 97 98 97 Oximetry 05/09/24 05/09/24 20:06 20:40 Temperature 97.9 F Pulse Rate 95 Pulse Rate [ 74 Pulse Oximetery ] Respiratory 18 18 Rate Blood Pressure 113/73 Blood Pressure 99/61 [Right Arm] O2 Sat by Pulse 94 L 96 Oximetry - Reevaluation(s) Reevaluation #1: 05/08/24 13:52 Records reviewed Reevaluation #2: 05/08/24 13:52 Symptoms improved Reevaluation #3: 05/08/24 13:52 Patient informed of results questions answered Reevaluation #4: Was pt. sent in by a medical professional or institution ([facility], [employer], urgent care, hospital, or residential...) When possible be specific @ -no Did you speak to anyone other than the patient for history (EMS, parent, family, police, friend...)? What history was obtained from this source @ -no Did you review nursing and triage notes (agree or disagree)? Why? @ -agree Are old charts reviewed (outside hosp., previous admission, EMS record, old EKG, old radiological studies, urgent care reports/EKG's, residential records)? Rep ort findings @ -yes Differential Diagnosis (chest pain, altered mental status, abdominal pain women, abdominal pain men, vaginal bleeding, weakness, fever, dyspnea, syncope, headache, dizziness, GI bleed, back pain, seizure, CVA, palpatations, mental health, musculoskeletal)? @ -prior EKG interpreted by me (3pts min.). @ -yes X-rays interpreted by me (1pt min.). @ -yes negative for acute disease CT interpreted by me (1pt min.). @ -yes negative for acute disease U/S interpreted by me (1pt. min.). @ -no What testing was considered but not performed or refused? (CT, X-rays, U/S, labs)? Why? @ -none What meds were considered but not given or refused? Why? @ -none Did you discuss the management of the patient with other professionals (professionals i.e. Dr., PA, [employer] MAIL [employer]ER, lab, RT, psych nurse, social insurance adviser, shaker operator, teacher, school services officer, counter caser)? Give summary @ -no Was smoking cessation discussed for >3mins.? @ -no Was critical care preformed (if so, how long)? @ -no Were there social determinants of health that impacted care today? How? (Homelessness, low income, unemployed, alcoholism, drug addiction, transportation, low edu. Level, literacy, decrease access to med. care, usp, rehab)? @ -none Was there de-escalation of care discussed even if they declined (Discuss DNR or withdrawal of care, Hospice)? DNR status @ -no What co-morbidities impacted this encounter? (DM, HTN, Smoking, COPD, CAD, Cancer, CVA, ARF, Chemo, Hep., AIDS, mental health diagnosis, sleep apnea, morbid obesity)? @ -none Was patient admitted / discharged? Hospital course, mention meds given and route, prescriptions, significant lab abnormalities, going to OR and other pertinent info. @ - 68 female to be admitted for generalized pain cancer pain severe pain here in the emergency department Admitted cancer pain Undiagnosed new problem with uncertain prognosis? @ -no Drug Therapy requiring intensive monitoring for toxicity (Heparin, Nitro, Insulin, Cardizem)? @ -no Were any procedures done? @ -no Diagnosis/symptom? @ -Cancer pain Acute, or Chronic, or Acute on Chronic? @ -Acute Uncomplicated (without systemic symptoms) or Complicated (systemic symptoms)? @ -Complicated Side effects of treatment? @ -no Exacerbation, Progression, or Severe Exacerbation? @ -exacerbation Poses a threat to life or bodily function? How? (Chest pain, [place], SD, pneumonia, PE, COPD, DKA, ARF, appy, cholecystitis, CVA, Diverticulitis, Homicidal, Suicidal, threat to staff... and all critical care pts) @ -yes extremes of age Reevaluation #5: Differential Weakness: Hypoglycemia, shock, sepsis, hyponatremia, anemia, infection, SD, ETOH, adverse medicine reaction, overdose, stroke, this is not meant to be an all-inclusive list. - Consultations Consultation #1: With [facility] who agrees to admit this patient EKG Findings - EKG Comments: EKG Findings:: Patient is sinus 86 OR 129 QRS 22 QTc 391 - EKG Results: EKG: interpreted by RADHA Medical Decision Making - Medical Decision Making 68 female to be admitted for generalized pain cancer pain severe pain here in the emergency department - Lab Data Result diagrams: 05/12/24 05:05 05/12/24 05:05 Lab Results 05/08/24 05/08/24 05/08/24 Range/Units 14:02 14:02 14:02 WBC 0.9 L* (3.8-10.6) k/uL RBC 3.89 (3.80-5.40) m/uL Hgb 11.7 (11.4-16.0) gm/dL Hct 37.3 (34.0-46.0) % MCV 95.7 (80.0-100.0) fL MCH 30.1 (25.0-35.0) pg MCHC 31.4 (31.0-37.0) g/dL RDW 14.9 (11.5-15.5) % Plt Count 150 (150-450) k/uL Estimated Plt Count (Adequate) MPV 8.5 Immature Gran % (Auto) % Absolute Nucleated RBC % Neutrophils % % Lymphocytes % % Monocytes % % Eosinophils % % Basophils % % Immature Gran # (0.00-0.04) X 10*3/uL Neutrophils # [employer] Lymphocytes # (0.90-5.00) X 10*3/uL Monocytes # (0.20-1.00) X 10*3/uL Eosinophils # (0.04-0.35) X 10*3/uL Basophils # (0.00-0.10) X 10*3/uL NRBC/100 WBC Diff (0.00-0.01) X 10*3/uL Differential Comment Manual Slide Review Performed Pathologist Review RBC Morphology PT 10.8 (10.0-12.5) sec INR 1.0 (<1.2) APTT 25.1 (22.0-30.0) sec Sodium (137-145) mmol/L Potassium (3.5-5.1) mmol/L Chloride (98-107) mmol/L Carbon Dioxide (22-30) mmol/L Anion Gap mmol/L BUN (7-17) mg/dL Creatinine (0.52-1.04) mg/dL Est GFR (CKD-EPI) Est GFR (CKD-EPI)AfAm (>60 ml/min/1.73 sqM) Est GFR (CKD-EPI)NonAf (>60 ml/min/1.73 sqM) BUN/Creatinine Ratio Glucose (74-99) mg/dL Plasma Lactic Acid Calixto (0.7-2.0) mmol/L Calcium (8.4-10.2) mg/dL Phosphorus (2.5-4.5) mg/dL Magnesium (1.6-2.3) mg/dL Total Bilirubin (0.2-1.3) mg/dL AST (14-36) U/L ALT (4-34) U/L Alkaline Phosphatase (38-126) U/L Troponin I (0.000-0.034) ng/mL Total Protein (6.3-8.2) g/dL Albumin (3.5-5.0) g/dL Globulin Albumin/Globulin Ratio TSH (0.465-4.680) mIU/L Urine Color Colorless Urine Appearance Clear (Clear) Urine pH 6.5 (5.0-8.0) Ur Specific [place] 1.007 (1.001-1.035) Urine Protein Negative (Negative) Urine Glucose (UA) Negative (Negative) Urine Ketones Negative (Negative) Urine Blood Negative (Negative) Urine Nitrite Negative (Negative) Urine Bilirubin Negative (Negative) Urine Urobilinogen <2.0 (<2.0) mg/dL Ur Leukocyte Esterase Negative (Negative) 05/08/24 05/08/24 05/08/24 Range/Units 14:02 14:02 14:02 WBC (3.8-10.6) k/uL RBC (3.80-5.40) m/uL Hgb (11.4-16.0) gm/dL Hct (34.0-46.0) % MCV (80.0-100.0) fL MCH (25.0-35.0) pg MCHC (31.0-37.0) g/dL RDW (11.5-15.5) % Plt Count (150-450) k/uL Estimated Plt Count (Adequate) MPV Immature Gran % (Auto) % Absolute Nucleated RBC % Neutrophils % % Lymphocytes % % Monocytes % % Eosinophils % % Basophils % % Immature Gran # (0.00-0.04) X 10*3/uL Neutrophils # Lymphocytes # (0.90-5.00) X 10*3/uL Monocytes # (0.20-1.00) X 10*3/uL Eosinophils # (0.04-0.35) X 10*3/uL Basophils # (0.00-0.10) X 10*3/uL NRBC/100 WBC Diff (0.00-0.01) X 10*3/uL Differential Comment Manual Slide Review Pathologist Review RBC Morphology PT (10.0-12.5) sec INR (<1.2) APTT (22.0-30.0) sec Sodium 131 L (137-145) mmol/L Potassium 3.6 (3.5-5.1) mmol/L Chloride 97 L (98-107) mmol/L Carbon Dioxide 29 (22-30) mmol/L Anion Gap 5 mmol/L BUN 9 (7-17) mg/dL Creatinine 0.30 L (0.52-1.04) mg/dL Est GFR (CKD-EPI) Est GFR (CKD-EPI)AfAm >90 (>60 ml/min/1.73 sqM) Est GFR (CKD-EPI)NonAf >90 (>60 ml/min/1.73 sqM) BUN/Creatinine Ratio Glucose 85 (74-99) mg/dL Plasma Lactic Acid Calixt[place] 1.1 (0.7-2.0) mmol/L Calcium 9.3 (8.4-10.2) mg/dL Phosphorus 4.0 (2.5-4.5) mg/dL Magnesium 1.7 (1.6-2.3) mg/dL Total Bilirubin 0.6 (0.2-1.3) mg/dL AST 31 (14-36) U/L ALT 16 (4-34) U/L Alkaline Phosphatase 95 (38-126) U/L Troponin I <0.012 (0.000-0.034) ng/mL Total Protein 5.8 L (6.3-8.2) g/dL Albumin 3.5 (3.5-5.0) g/dL Globulin Albumin/Globulin Ratio TSH 8.560 H (0.465-4.680) mIU/L Urine Color Urine Appearance (Clear) Urine pH (5.0-8.0) Ur Specific [place] (1.001-1.035) Urine Protein (Negative) Urine Glucose (UA) (Negative) Urine Ketones (Negative) Urine Blood (Negative) Urine Nitrite (Negative) Urine Bilirubin (Negative) Urine Urobilinogen (<2.0) mg/dL Ur Leukocyte Esterase (Negative) 05/09/24 05/09/24 05/09/24 Range/Units 06:20 06:20 06:20 WBC 0.61 A* (3.8-10.6) k/uL RBC 2.32 L (3.80-5.40) m/uL Hgb 7.3 L (11.4-16.0) gm/dL Hct 22.9 L (34.0-46.0) % MCV 98.7 H (80.0-100.0) fL MCH 31.5 (25.0-35.0) pg MCHC 31.9 L (31.0-37.0) g/dL RDW 14.6 H (11.5-15.5) % Plt Count 83 L (150-450) k/uL Estimated Plt Count Decreased (Adequate) MPV 10.3 Immature Gran % (Auto) 0 % Absolute Nucleated RBC 0 % Neutrophils % 9.9 % Lymphocytes % 77.0 % Monocytes % 11.5 % Eosinophils % 0 % Basophils % 1.6 % Immature Gran # 0 (0.00-0.04) X 10*3/uL Neutrophils # 0.06 A* Lymphocytes # 0.47 L (0.90-5.00) X 10*3/uL Monocytes # 0.07 L (0.20-1.00) X 10*3/uL Eosinophils # 0 L (0.04-0.35) X 10*3/uL Basophils # 0.01 (0.00-0.10) X 10*3/uL NRBC/100 WBC Diff 0 (0.00-0.01) X 10*3/uL Differential Comment Manual Slide Review Morph Only Pathologist Review See Comment RBC Morphology Normal PT (10.0-12.5) sec INR (<1.2) APTT (22.0-30.0) sec Sodium Cancelled (137-145) mmol/L Potassium Cancelled (3.5-5.1) mmol/L Chloride Cancelled (98-107) mmol/L Carbon Dioxide Cancelled (22-30) mmol/L Anion Gap Cancelled mmol/L BUN Cancelled (7-17) mg/dL Creatinine Cancelled (0.52-1.04) mg/dL Est GFR (CKD-EPI) Cancelled Est GFR (CKD-EPI)AfAm Cancelled (>60 ml/min/1.73 sqM) Est GFR (CKD-EPI)NonAf Cancelled (>60 ml/min/1.73 sqM) BUN/Creatinine Ratio Cancelled Glucose Cancelled (74-99) mg/dL Plasma Lactic Acid Calixto (0.7-2.0) mmol/L Calcium Cancelled (8.4-10.2) mg/dL Phosphorus 1.6 L (2.5-4.5) mg/dL Magnesium Cancelled (1.6-2.3) mg/dL Total Bilirubin Cancelled (0.2-1.3) mg/dL AST Cancelled (14-36) U/L ALT Cancelled (4-34) U/L Alkaline Phosphatase Cancelled (38-126) U/L Troponin I (0.000-0.034) ng/mL Total Protein Cancelled (6.3-8.2) g/dL Albumin Cancelled (3.5-5.0) g/dL Globulin Cancelled Albumin/Globulin Ratio Cancelled TSH (0.465-4.680) mIU/L Urine Color Urine Appearance (Clear) Urine pH (5.0-8.0) Ur Specific [place] (1.001-1.035) Urine Protein (Negative) Urine Glucose (UA) (Negative) Urine Ketones (Negative) Urine Blood (Negative) Urine Nitrite (Negative) Urine Bilirubin (Negative) Urine Urobilinogen (<2.0) mg/dL Ur Leukocyte Esterase (Negative) - EKG Data -: EKG Interpreted by Pr - Radiology Data Radiology results: report reviewed (Chest x-ray does show no significant acute changes increasing effusions, CT on pelvis is negative for acute disease), image reviewed Disposition Clinical Impression: Weakness, Cancer associated pain, Chest pain Disposition: ADMITTED IP TO THIS [facility] Condition: Fair Is patient prescribed a controlled substance at d/c from ED?: No Time of Disposition: 17:00
[2024-05-08 14:22] LABS: Partial Thromboplastin Time 25.1 sec (22.0-30.0); Prothrombin Time 10.8 sec (10.0-12.5)
[2024-05-08] MEDS: SODIUM CHLORIDE 0.9% 1,000 ML IV STA (14:26)
[2024-05-08 14:38] LABS: ALT 16 U/L (4-34); AST 31 U/L (14-36); African American GFR (CKD) >90 (>60 ml/min/1.73 sqM); Albumin 3.5 g/dL (3.5-5.0); Alkaline Phosphatase 95 U/L (38-126); Anion Gap 5 mmol/L; Blood Urea Nitrogen 9 mg/dL (7-17); Calcium 9.3 mg/dL (8.4-10.2); Carbon Dioxide 29 mmol/L (22-30); Chloride 97 mmol/L (98-107); Glucose 85 mg/dL (74-99); Magnesium 1.7 mg/dL (1.6-2.3); Non-African American GFR(CKD) >90 (>60 ml/min/1.73 sqM); Potassium 3.6 mmol/L (3.5-5.1); Sodium 131 mmol/L (137-145); Total Bilirubin 0.6 mg/dL (0.2-1.3); Total Protein 5.8 g/dL (6.3-8.2)
[2024-05-08] MEDS: IPRATROPIUM-ALBUTEROL 3 ML NEB INHALATION STA (15:00)
--- NOTE | 2024-05-08 15:05 | XR ---
EXAMINATION TYPE: XR chest 2V DATE OF EXAM: 05/08/2024 2:38 PM CLINICAL INDICATION:Female, 68 years old with history of Weakness; [facility] COMPARISON: Chest radiographs from 03/01/2024 TECHNIQUE: XR chest 2V Frontal view of the chest. FINDINGS: Lungs/Pleura: No evidence of focal consolidation or pneumothorax. Blunting of the costophrenic angles is present. Pulmonary vascularity: Pulmonary vascular congestion. Heart/mediastinum: Cardiomediastinal silhouette is enlarged and stable. Musculoskeletal: No acute osseous pathology. Other findings: Left axilla surgical clips, left breast surgical clips. Lines/Tubes: [id number]-Icsw projecting over the right hemithorax with distal tip at the cavoatrial junction. IMPRESSION: pulmonary vascular congestion and bilateral pleural effusions. Correlate with BNP for congestive hear t failure.
[2024-05-08 15:52] LABS: HCT 37.3 % (34.0-46.0); HGB 11.7 gm/dL (11.4-16.0); MCH 30.1 pg (25.0-35.0); MCHC 31.4 g/dL (31.0-37.0); MCV 95.7 fL (80.0-100.0); Mean Platelet Volume 8.5; Platelet Count 150 k/uL (150-450); RBC 3.89 m/uL (3.80-5.40); RDW 14.9 % (11.5-15.5)
[2024-05-08 15:56] LABS: WBC 0.9 k/uL (3.8-10.6)
[2024-05-08 16:18] LABS: Appearance,Urine Clear (Clear); Bilirubin,Urine Negative (Negative); Blood,Urine Negative (Negative); Color,Urine Colorless; Glucose,Urine (UA) Negative (Negative); Ketones,Urine Negative (Negative); Leukocyte Esterase,Urine Negative (Negative); Nitrite,Urine Negative (Negative); PH, Urine 6.5 (5.0-8.0); Protein,Urine Negative (Negative); Specific Gravity,Urine 1.007 (1.001-1.035); Urobilinogen,Urine <2.0 mg/dL (<2.0)
[2024-05-08] MEDS: SODIUM CHLORIDE 0.9% 500 ML 500 ML IV STA (16:44)
[2024-05-08] MEDS: diphenhydrAMINE 50 MG/ML 1 ML VIAL IVP STA (16:45)
[2024-05-08] MEDS: HYDROmorphone 1 MG/ML 1 ML SYRINGE IVP STA (16:48)
[2024-05-08] MEDS ORDERED: NALOXONE 0.4 MG/ML 1 ML VIAL IV PRN (17:07)
[2024-05-08] MEDS: SODIUM CHLORIDE 0.9% 1,000 ML IV SCH (17:49)
[2024-05-08] MEDS: HYDROmorphone 1 MG/ML 1 ML SYRINGE IVP PRN (18:12)
[2024-05-08] MEDS ORDERED: ONDANSETRON 4 MG TAB PO PRN (21:43)
[2024-05-08] MEDS ORDERED: polyethylene glycoL 3350 17 GM POWD.PACK PO PRN (21:43)
--- NOTE | 2024-05-09 00:34 | CT ---
EXAM: CT Abdomen and Pelvis Without Intravenous Contrast CLINICAL HISTORY: ITS.REASON CT Reason: ABD Pain TECHNIQUE: Axial computed tomography images of the abdomen and pelvis without intravenous contrast. CTDI is 3.9 mGy and DLP is 223.3 mGy-cm. This CT exam was performed using one or more of the following dose reduction techniques: automated exposure control, adjustment of the mA and/or kV according to patient size, and/or use of iterative reconstruction technique. COMPARISON: CT abdomen/pelvis: 02/23/2024 FINDINGS: Motion-induced image degradation limits the sensitivity of the exam. Lung bases: Again demonstrated a moderately large volume right, a small volume left including a loculated fluid in the left lung fissure, bibasilar consolidation and left lower lobe infiltrates/pneumonia somewhat similar to the prior comparison. Pulmonary emphysema. Central tubular bronchiectasis. A left thoracostomy tube in stable position.. ABDOMEN: Lack of IV contrast limits evaluation of soft tissue/vascular structures. Liver: A poorly defined large size hypodense area seen mostly in the anterior left lobe increased since prior comparison, concerning for metastatic disease versus infectious/inflammatory pathology (series 201 image 77, series 200 and, image 41). There is likely periportal edema. Gallbladder and bile ducts: A mildly distended gallbladder with small pericholecystic fluid. No calcified stones. Grossly no ductal dilation. Pancreas: Poorly visualized/decrease in visible pancreatic tissue/parenchymal atrophy, cannot exclude pathological process. Spleen: No splenomegaly. Adrenals: Not clearly visualized.. Kidneys and ureters: No obstructing stones. No hydronephrosis. Stomach and bowel: Moderately large amount of inspissated/well-formed stool is seen throughout the colon, including the rectosigmoid. No obstruction. Diffuse sigmoid diverticulosis coli. PELVIS: Appendix: Not visualized. No acute findings in the region of the appendix. Bladder: Unremarkable. No stones. Reproductive: Prior hysterectomy. Intraperitoneal space: Decreased intraperitoneal fat with crowding of the viscera. No free air. Moderate volume free fluid in the pelvis. Bones/joints: Diffuse osseous demineralization. Widespread sclerotic foci are seen in the axial/appendicular skeleton, suggestive of osseous metastatic disease. Moderate degenerative disc/endplate spondylitic changes are mostly seen at L3-L4 and L5-S1 levels. Soft tissues: Diffusely decreased intraperitoneal/ body wall fat/cachexia. Vasculature: Mild/moderate atherosclerotic calcifications. No abdominal aortic aneurysm. Lymph nodes: Suspect enlarged lymph nodes predominantly in the upper central abdomen and in the pelvis. IMPRESSION: Suboptimally evaluated due to lack of IV contrast by the patient's characteristics. Lung bases again noted moderately large volume right side and small volume left pleural effusion including a loculated fluid in the left lung fissure is grossly unchanged. A left thoracostomy tube in a stable position. Bibasilar consolidation and left lower lobe infiltrate/pneumonia seen somewhat similar to prior comparison. A poorly defined large size hypodense abnormality seen mostly in the anterior left lobe increased since prior comparison, concerning for metastatic disease versus less likely infectious/inflammatory pathology. There is likely periportal edema. There is possible mesenteric/pelvic lymphadenopathy. Poorly visualized decreased pancreatic tissue/pancreatic atrophy, cannot exclude underlying worrisome pathology. Moderate volume free fluid in the pelvis. Diffuse osseous metastatic disease. Nuclear bone scan would be confirmatory. Diffusely decreased intraperitoneal and body wall fat/cachexia. .
[2024-05-09] MEDS: HYDROcodone/APAP 10-325MG 1 EACH TAB PO SCH (00:54)
[2024-05-09] MEDS: ALPRAZolam 0.5 MG TAB PO PRN (01:01)
[2024-05-09] MEDS: OLANZapine 2.5 MG TAB PO PRN (01:01)
[2024-05-09] MEDS: droNABinol 2.5 MG CAP PO SCH (06:40)
[2024-05-09] MEDS: LEVOTHYROXINE 88 MCG TAB PO SCH (06:53)
[2024-05-09] MEDS: LEVOTHYROXINE 125 MCG TAB PO SCH (07:31)
--- NOTE | 2024-05-09 08:02 | P.GSCN ---
History of Present Illness Consult date: 05/09/24 Reason for Consult: Known to our services from left-sided Pleurx catheter placement Requesting physician: Negro Ching History of present illness: This is a 68-year-old female patient who follows outpatient with Dr. Lema for primary care and Dr. Dee for oncology. She has a previous medical history of metastatic triple negative ductal carcinoma of the left breast status post chemotherapy and left mastectomy in March 2023, recurrent left-sided malignant pleural effusions status post thoracentesis and subsequent pleurx catheter placement, COPD, previous tobacco dependence, and anxiety. She presented to the emergency department at [facility] in December 2023 with complaints of progressive dyspnea and pain to her left chest, and again in January 2024 for back pain. During both hospitalizations she underwent left sided thoracentesis with fluid sent for culture and cytology. During her December admission cardiothoracic was consulted for pleurx catheter placement. As she had just had thoracentesis there was not felt to be enough fluid to place Pleurx catheter safely, she was discharged and followed up outpatient to schedule Pleurx catheter placement which was placed electively and outpatient by Dr. Lazar on January 14, 2024. She was recovering at home and had been draining her Pleurx twice a week with 400 to 500 mL fluid drainage each time. Unfortunately she developed chest discomfort and constipation and presented back to [facility] emergency room at the end of December for evaluation and treatment. Chest x-ray did demonstrate decreased pleural effusion from prior as well as left apical pneumothorax. Dr. Lazar was consulted at that time with no recommendations for surgical intervention. In addition she had a right sided thoracentesis 02/24/[address] Fuentes with removal of 1.1 L fluid. She presented back to [facility] emergency room last night with complaints of weakness, abdominal pain, chest pain. Chest x-ray did demonstrate bilateral pleural effusions, right greater than left. Abdomen/pelvis CT demonstrated moderate right effusion along with loculated fluid in the left fissure, hypodense area in the anterior left lobe of the liver which has increased in size from previous CT, periportal edema, moderate free fluid in the pelvis, enlarged lymph nodes in the upper abdomen and pelvis, and diffuse osseous metastatic disease. Lab work revealed WBC 0.9, creatinine 0.3, lactic acid 1.1, negative troponin, TSH 8.56, and urinalysis was negative. The patient is being admitted for observation for better pain control. Consultation was placed to Dr. Lazar as the patient is known to us. Review of Systems Review of systems was completed and was negative except as noted - Constitutional Reports weakness - Cardiovascular Reports chest pain - Gastrointestinal Reports abdominal pain Past Medical History Past Medical History: Cancer, COPD, Eye Disorder Additional Past Medical History / Comment(s): MENINGITIS, 19 YRS OLD ovarian cyst burst., FLOATER RIGHT EYE., LEFT BREAST CANCER - pt had a recent PET scan that showed at spot that they wanted to check out for mets. Recurrent left- sided pleural effusion, R sided pleural effusion. History of Any Multi-Drug Resistant Organisms: None Reported Past Surgical History: Hysterectomy, Tonsillectomy Additional Past Surgical History / Comment(s): HARITHA CATARACTS with lens implants, Mastectomy, March 2023; left-sided Pleurx catheter placed January 14, 2024, Port- a -cath. Past Anesthesia/Blood Transfusion Reactions: No Reported Reaction Additional Past Anesthesia/Blood Transfusion Reaction / Comm: HX OF BLOOD TRANSFUSION-NO REACTION Smoking Status: Former smoker - Past Family History Father History Unknown: Yes Family Medical History: Cancer Additional Family Medical History / Comment(s): PANCREATIC CANCER Brother(s) History Unknown: Yes Family Medical History: Cancer, Thyroid Disorder Additional Family Medical History / Comment(s): STOMACH CANCER Medications and Allergies Home Medications Medication Instructions Recorded Confirmed Type Albuterol Sulfate [Ventolin HFA] 2 puff INHALATION RT-Q6H PRN 01/01/24 05/08/24 History HYDROcodone/APAP 10-325MG [[place] 1 tab PO Q6HR 01/08/24 05/08/24 History 10-325] Docusate [Colace] 200 mg PO BID 02/24/24 05/08/24 History Levothyroxine Sodium [Synthroid] 88 mcg PO DAILY 02/24/24 05/08/24 History polyethylene glycoL 3350 [Miralax] 17 gm PO BID PRN 02/24/24 05/08/24 History Ondansetron [Zofran] 4 mg PO QID PRN 03/16/24 05/08/24 History LORazepam [Ativan] 1 tab PO BID 04/27/24 05/08/24 History Sennosides [Senokot] 1 tab PO BID 04/27/24 05/08/24 History ALPRAZolam [Xanax] 0.5 mg PO TID PRN 05/08/24 05/08/24 History OLANZapine [ZyPREXA] 2.5 mg PO HS PRN 05/08/24 05/08/24 History droNABinol [Marinol] 2.5 mg PO AC-BID 05/08/24 05/08/24 History diazePAM [Valium] 5 mg PO ONCE #1 tab 05/10/24 Rx Allergies Allergy/AdvReac Type Severity Reaction Status Date / Time No Known Allergies Allergy Verified 05/08/24 15:12 Surgical - Exam Vital Signs Temp Pulse Resp BP Pulse Ox 98.3 F 94 22 99/77 99 05/08/24 13:46 05/08/24 13:46 05/08/24 13:46 05/08/24 13:46 05/08/24 13:46 CONSTITUTIONAL: Awake and alert, appears comfortable, cooperative, very cachectic, no acute distress EYES: Pupils equal, round, reactive to light, normal ocular movement ENT: Moist mucous membranes without oral lesions present NECK: No masses, no bruits, trachea midline RESPIRATORY: Lungs sounds diminished bilaterally, right greater than left. Respirations even, nonlabored. Currently on 2 L nasal cannula with oxygen saturation 100%. Strong cough. CARDIOVASCULAR: S1, S2 present. Regular rate and rhythm, sinus rhythm on telemetry. Palpable peripheral pulses bilaterally. No edema present. GASTROINTESTINAL: Abdomen soft, nontender, nondistended without masses or organomegaly noted. There is no rebound or guarding present. Active bowel sounds present 4 quadrants. GENITOURINARY: Deferred INTEGUMENTARY: Skin is warm and dry NEUROLOGIC: Cranial nerves II through XII intact, normal coordination, no obvious motor or sensory deficits, speech is normal MUSKULOSKELETAL: Able to move all extremities, strength equal bilaterally, generalized weakness present PSYCHIATRIC: Alert and oriented to person place and time Results - Labs 05/10/24 06:47 05/10/24 06:47 Abnormal Lab Results - Last 24 Hours (Table) 05/08/24 05/08/24 Range/Units 14:02 14:02 WBC 0.9 L* (3.8-10.6) k/uL Sodium 131 L (137-145) mmol/L Chloride 97 L (98-107) mmol/L Creatinine 0.30 L (0.52-1.04) mg/dL Total Protein 5.8 L (6.3-8.2) g/dL TSH 8.560 H (0.465-4.680) mIU/L Diabetes panel 05/08/24 Range/Units 14:02 Sodium 131 L (137-145) mmol/L Potassium 3.6 (3.5-5.1) mmol/L Chloride 97 L (98-107) mmol/L Carbon Dioxide 29 (22-30) mmol/L BUN 9 (7-17) mg/dL Creatinine 0.30 L (0.52-1.04) mg/dL Glucose 85 (74-99) mg/dL Calcium 9.3 (8.4-10.2) mg/dL AST 31 (14-36) U/L ALT 16 (4-34) U/L Alkaline Phosphatase 95 (38-126) U/L Total Protein 5.8 L (6.3-8.2) g/dL Albumin 3.5 (3.5-5.0) g/dL Thyroid panel 05/08/24 Range/Units 14:02 TSH 8.560 H (0.465-4.680) mIU/L Calcium panel 05/08/24 Range/Units 14:02 Calcium 9.3 (8.4-10.2) mg/dL Phosphorus 4.0 (2.5-4.5) mg/dL Albumin 3.5 (3.5-5.0) g/dL Pituitary panel 05/08/24 Range/Units 14:02 Sodium 131 L (137-145) mmol/L Potassium 3.6 (3.5-5.1) mmol/L Chloride 97 L (98-107) mmol/L Carbon Dioxide 29 (22-30) mmol/L BUN 9 (7-17) mg/dL Creatinine 0.30 L (0.52-1.04) mg/dL Glucose 85 (74-99) mg/dL Calcium 9.3 (8.4-10.2) mg/dL TSH 8.560 H (0.465-4.680) mIU/L Adrenal panel 05/08/24 Range/Units 14:02 Sodium 131 L (137-145) mmol/L Potassium 3.6 (3.5-5.1) mmol/L Chloride 97 L (98-107) mmol/L Carbon Dioxide 29 (22-30) mmol/L BUN 9 (7-17) mg/dL Creatinine 0.30 L (0.52-1.04) mg/dL Glucose 85 (74-99) mg/dL Calcium 9.3 (8.4-10.2) mg/dL Total Bilirubin 0.6 (0.2-1.3) mg/dL AST 31 (14-36) U/L ALT 16 (4-34) U/L Alkaline Phosphatase 95 (38-126) U/L Total Protein 5.8 L (6.3-8.2) g/dL Albumin 3.5 (3.5-5.0) g/dL - Imaging Chest x-ray: report reviewed, image reviewed CT scan - abdomen: report reviewed, image reviewed Assessment and Plan Assessment: Generalized weakness Acute on chronic cancer pain History of metastatic triple negative ductal carcinoma of the left breast status post chemotherapy and left mastectomy in March 2023 Recurrent left-sided malignant pleural effusions status post thoracentesis and subsequent pleurx catheter placement Recurrent right-sided pleural effusion status post thoracentesis in January by Dr. Fuentes COPD Previous tobacco dependence Anxiety Plan: The patient was seen and examined laying on the cart in the emergency room in no acute distress. Chart/diagnostics were reviewed. The case was discussed with Dr. Lazar. Films were reviewed with Dr. Lazar. No surgical intervention warranted at this time as the patient's main concerns are pain and weakness. She is in no respiratory distress and oxygen saturation is 100% on 2 L nasal cannula. She states her last drainage from the left Pleurx catheter was a couple of weeks ago, mostly dry. Will not discontinue left Pleurx catheter at this time, may continue to drive up with cancer treatment. If it is felt that the patient's right-sided chest needs to be drained she can undergo thoracentesis. CT demonstrated possible mets to the bone and liver which patient claims nobody has ever told her about, will defer to oncology for that discussion. She states she has had no change in her health status since we last saw her other than change in her chemotherapy medication. From cardiothoracic surgery standpoint patient can be discharged to home when okay with internal medicine. Thank you for this consult. Please call us with any further questions. I have personally seen and examined the patient, performed the documentation and the assessment and plan as written. Number of minutes spent on the visit: 30. Devi Guillen NP-C Attending Addendum: Pt seen and evaluated with DRY CHARGE PROCESS ATTENDANT above. Agree with her assessment and plan. I spent 35 minutes reviewing the data and discussing the plan of care with the team. Time with Patient: Greater than 30
[2024-05-09] MEDS: ALBUTEROL NEBULIZED 2.5 MG/3 ML INHALATION PRN (08:12)
[2024-05-09] MEDS: SENNOSIDES 8.6 MG TAB PO SCH (08:50)
[2024-05-09] MEDS: LORazepam 1 MG TAB PO SCH (08:50)
[2024-05-09] MEDS: DOCUSATE 100 MG CAP PO SCH (08:50)
[2024-05-09 11:18] LABS: Basophils # (A) 0.01 X 10*3/uL (0.00-0.10); Basophils % (A) 1.6 %; Eosinophils # (A) 0 X 10*3/uL (0.04-0.35); Eosinophils % (A) 0 %; HCT 22.9 % (37.2-46.3); HGB 7.3 g/dL (12.0-15.0); Immature Grans, Automated 0 %; Lymphocytes # (A) 0.47 X 10*3/uL (0.90-5.00); MCH 31.5 pg (27.0-32.0); MCHC 31.9 g/dL (32.0-37.0); MCV 98.7 FL (80.0-97.0); Mean Platelet Volume 10.3 FL (9.5-12.2); Monocytes # (A) 0.07 X 10*3/uL (0.20-1.00); Monocytes % (A) 11.5 %; NRBC Per 100 WBC 0 X 10*3/uL (0.00-0.01); Neutrophils # (A) 0.06 X 10*3/uL (1.80-7.70); Neutrophils % (A) 9.9 %; Platelet Count 83 X 10*3/uL (140-440); RBC 2.32 X 10*6/uL (4.10-5.20); RBC Morphology Normal (Normal); RDW 14.6 % (11.5-14.5); WBC 0.61 X 10*3/uL (4.50-10.00)
--- NOTE | 2024-05-09 15:49 | P.HPIM ---
History of Present Illness Patient is a 68-year-old female, came in with complaints of shortness of breath and severe chest pain and abdominal pain predominantly on the left side where she has a Pleurx catheter. Patient also bit hyponatremic. Patient is cachectic secondary to cancer. Patient is taking [place] at home for pain patient pain is severe. Patient's abdominal, liver lesions are worsened compared to previous CT scans patient had a CT scan here which showed moderate to severe right pleural effusion along with mild loculated effusion on the left side and patient has a Pleurx catheter on the left side. Cardiothoracic surgery was consulted, and marielos joseph evaluated the patient not recommending any Pleurx catheter on the right side but may need a thoracentesis. Patient WBC count is only 0.61 may be receiving chemotherapy. Patient does not have any fever chills nausea vomiting occasionally get constipated because of the pain medications. Patient is mainly admitted for pain management and right-sided pleural effusion and shortness of breath. Patient does have history of COPD does use home oxygen, 2 L and pressure and patient saturating at 97% on 2 L. REVIEW OF SYSTEMS: CONSTITUTIONAL: No fever, no malaise, no fatigue. Thin built and cachectic HEENT: No recent visual problems or hearing problems. Denied any sore throat. CARDIOVASCULAR: No orthopnea, PND, no palpitations, no syncope. PULMONARY: no hemoptysis. GASTROINTESTINAL: No diarrhea, no nausea, no vomiting, no abdominal pain. NEUROLOGICAL: No headaches, no weakness, no numbness. HEMATOLOGICAL: Denies any bleeding or petechiae. GENITOURINARY: Denies any burning micturition, frequency, or urgency. MUSCULOSKELETAL/RHEUMATOLOGICAL: Denies any joint pain, swelling, or any muscle pain. ENDOCRINE: Denies any polyuria or polydipsia. The rest of the 14-point review of systems is negative. PHYSICAL EXAMINATION: GENERAL: The patient is alert and oriented x3, not in any acute distress. Cachectic female HEENT: Pupils are round and equally reacting to light. EOMI. No scleral icterus. No conjunctival pallor. Normocephalic, atraumatic. No pharyngeal erythema. No t hyromegaly. CARDIOVASCULAR: S1 and S2 present. No murmurs, rubs, or gallops. PULMONARY: Chest is clear to auscultation, no wheezing or crackles. ABDOMEN: Soft, nontender, nondistended, normoactive bowel sounds. No palpable organomegaly. Scaphoid abdomen MUSCULOSKELETAL: No joint swelling or deformity. EXTREMITIES: No cyanosis, clubbing, or pedal edema. NEUROLOGICAL: Gross neurological examination did not reveal any focal deficits. SKIN: No rashes. Assessment and plan -Shortness of breath may be secondary to pleural effusion patient does have advanced COPD her oxygen requirement is her baseline will consult pulmonary for shortness of breath and possible thoracentesis. -Abdominal pain and chest pain secondary to metastic disease patient blood pressure is borderline. Patient will be started on Toradol along with GI prophylaxis for pain, continue with [place] and also add fentanyl patch along with the bowel regimen. -Metastatic lung cancer oncology will be consulted -COPD without any acute exacerbation -Moderate protein calorie malnutrition from cancer -Hypomagnesemia potassium will be replaced DVT prophylaxis: Lovenox 30 mg subcutaneous Past Medical History Past Medical History: Cancer, COPD, Eye Disorder Additional Past Medical History / Comment(s): MENINGITIS, 19 YRS OLD ovarian cyst burst., FLOATER RIGHT EYE., LEFT BREAST CANCER - pt had a recent PET scan that showed at spot that they wanted to check out for mets. Recurrent left- sided pleural effusion, R sided pleural effusion. History of Any Multi-Drug Resistant Organisms: None Reported Past Surgical History: Hysterectomy, Tonsillectomy Additional Past Surgical History / Comment(s): HARITHA CATARACTS with lens implants, Mastectomy, March 2023; left-sided Pleurx catheter placed January 14, 2024, Port- a -cath. Past Anesthesia/Blood Transfusion Reactions: No Reported Reaction Additional Past Anesthesia/Blood Transfusion Reaction / Comment(s): HX OF BLOOD TRANSFUSION-NO REACTION Smoking Status: Former smoker - Past Family History Father History Unknown: Yes Family Medical History: Cancer Additional Family Medical History / Comment(s): PANCREATIC CANCER Brother(s) History Unknown: Yes Family Medical History: Cancer, Thyroid Disorder Additional Family Medical History / Comment(s): STOMACH CANCER Medications and Allergies Home Medications Medication Instructions Recorded Confirmed Type Albuterol Sulfate [Ventolin HFA] 2 puff INHALATION RT-Q6H PRN 01/01/24 05/08/24 History HYDROcodone/APAP 10-325MG [[place] 1 tab PO Q6HR 01/08/24 05/08/24 History 10-325] Docusate [Colace] 200 mg PO BID 02/24/24 05/08/24 History Levothyroxine Sodium [Synthroid] 88 mcg PO DAILY 02/24/24 05/08/24 History polyethylene glycoL 3350 [Miralax] 17 gm PO BID PRN 02/24/24 05/08/24 History Ondansetron [Zofran] 4 mg PO QID PRN 03/16/24 05/08/24 History LORazepam [Ativan] 1 tab PO BID 04/27/24 05/08/24 History Sennosides [Senokot] 1 tab PO BID 04/27/24 05/08/24 History ALPRAZolam [Xanax] 0.5 mg PO TID PRN 05/08/24 05/08/24 History OLANZapine [ZyPREXA] 2.5 mg PO HS PRN 05/08/24 05/08/24 History droNABinol [Marinol] 2.5 mg PO AC-BID 05/08/24 05/08/24 History Allergies Allergy/AdvReac Type Severity Reaction Status Date / Time No Known Allergies Allergy Verified 05/08/24 15:12 Physical Exam Vitals: Vital Signs Temp Pulse Resp BP Pulse Ox 05/09/24 12:47 98.5 F 99 123/97 97 05/09/24 10:00 81 20 111/81 96 05/09/24 08:52 106 H 16 111/81 05/09/24 08:24 69 05/09/24 08:15 100 05/09/24 08:12 77 05/09/24 06:42 86 20 90/72 100 05/09/24 05:00 68 16 93/70 99 05/09/24 01:00 89 20 117/80 97 05/09/24 00:00 83 24 112/73 97 05/08/24 23:00 89 19 133/82 97 05/08/24 22:00 90 24 115/70 98 05/08/24 21:00 73 23 122/73 100 05/08/24 18:13 76 24 139/94 98 05/08/24 17:50 86 18 115/78 97 05/08/24 16:41 93 26 H 107/73 96 Results CBC & Chem 7: 05/09/24 06:20 05/08/24 14:02 Labs: Abnormal Lab Results - Last 24 Hours (Table) 05/08/24 05/09/24 05/09/24 Range/Units 14:02 06:20 06:20 WBC 0.9 L* 0.61 A* (3.8-10.6) k/uL RBC 2.32 L (4.10-5.20) X 10*6/uL Hgb 7.3 L (12.0-15.0) g/dL Hct 22.9 L (37.2-46.3) % MCV 98.7 H (80.0-97.0) FL MCHC 31.9 L (32.0-37.0) g/dL RDW 14.6 H (11.5-14.5) % Plt Count 83 L (140-440) X 10*3/uL Neutrophils # 0.06 A* (1.80-7.70) X 10*3/uL Lymphocytes # 0.47 L (0.90-5.00) X 10*3/uL Monocytes # 0.07 L (0.20-1.00) X 10*3/uL Eosinophils # 0 L (0.04-0.35) X 10*3/uL Phosphorus 1.6 L (2.4-5.1) mg/dL
[2024-05-09] MEDS: FAMOTIDINE 20 MG TAB PO SCH (17:27)
[2024-05-09] MEDS: POTASSIUM CHLORIDE ER 20 MEQ TAB.ER PO STA (17:27)
[2024-05-09] MEDS: MAGNESIUM SULFATE-D5W PMX 1 GM in DEXTROSE/WATER 1 100ML.BAG IVPB SCH (17:27)
[2024-05-09] MEDS: SENNOSIDES-DOCUSATE SODIUM 1 EACH TAB PO SCH (21:18)
--- NOTE | 2024-05-10 07:15 | P.CNPUL ---
History of Present Illness Consult date: 05/10/24 Requesting physician: Palomo Muse Reason for consult: pleural effusion Chief complaint: Left-sided chest pain, acute on chronic shortness of breath History of present illness: Patient is a 68-year-old white female with past medical history significant for metastatic breast cancer. She follows with her oncologist Dr. Dee. Reportedly, currently on chemotherapy with 2 weeks on and 1 week off. Last reported systemic treatment was approximately 1 week ago. Of note, she has recurrent haritha ateral pleural effusions. She did have a left-sided Pleurx catheter inserted by cardiothoracic surgery on 01/14/2024. 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 Back in January, she did have a recurrent moderate to large sized right-sided pleural effusion, and did undergo bedside thoracentesis by Dr. Fuentes, and a total of 1.1 L of fluid was removed. Fluid was not sent for repeat cytology. Patient returns to the emergency department on 05/08/2024 chiefly complaining of left-sided chest pain/left upper quadrant abdominal pain, mostly localized to the Pleurx catheter insertion site. No surrounding erythema or wound drainage. Up until the last couple weeks, she was draining weekly, with a total of 500 mL removed at each interval. Denies any purulent output. Now the output has weaned down to nothing. Denies change in chronic cough, sputum production, hemoptysis. Denies fevers. Patient is currently resting comfortably on 2 L/min nasal cannula, in no acute distress. She is very cachectic. She does become dyspneic with exertion, such as sitting u p to go to the restroom. CBC: WBC count 0.61, hemoglobin 7.3, hematocrit 22.9, platelets 83,000. Most recent CMP: Sodium 131, potassium 3.6, chloride 97, serum bicarb 29, BUN 9, creatinine 0.3, glucose 85. Lactic 1.1. LFTs not elevated. Troponin less than 0.012. TSH is elevated at 8.5. Urinalysis unremarkable for infection. Overall, vital signs are stable. Review of Systems REVIEW OF SYSTEMS: CONSTITUTIONAL: Admits weight loss, poor appetite. Denies fevers EYES: Denies change in vision. EARS, NOSE, MOUTH, THROAT: Denies headaches, denies sore throat. CARDIOVASCULAR: Denies chest pain, palpitations or syncopal episodes. RESPIRATORY: See HPI GASTROINTESTINAL: Denies change in appetite, abdominal pain, nausea and vomiting, or diarrhea GENITOURINARY: Denies hematuria, denies infections. MUSKULOSKELETAL: Denies pain, denies swelling. INTEGUMENTARY: Denies rash, denies eczema. NEUROLOGICAL: Denies recent memory loss, no recent seizure activity. PSYCHIATRIC: Denies anxiety, denies depression. HEMATOLOGIC/LYMPHATIC: Denies anemia, denies enlarged lymph node Past Medical History Past Medical History: Cancer, COPD, Eye Disorder Additional Past Medical History / Comment(s): MENINGITIS, 19 YRS OLD ovarian cyst burst., FLOATER RIGHT EYE., LEFT BREAST CANCER - pt had a recent PET scan that showed at spot that they wanted to check out for mets. Mets to lung new diagnosis May 25 Recurrent left-sided pleural effusion, R sided pleural effusion. History of Any Multi-Drug Resistant Organisms: None Reported Past Surgical History: Hysterectomy, Tonsillectomy Additional Past Surgical History / Comment(s): HARITHA CATARACTS with lens implants, Mastectomy, March 2023; left-sided Pleurx catheter placed January 14, 2024, Port- a -cath. Past Anesthesia/Blood Transfusion Reactions: No Reported Reaction Additional Past Anesthesia/Blood Transfusion Reaction / Comment(s): HX OF BLOOD TRANSFUSION-NO REACTION Past Psychological History: Anxiety Smoking Status: Former smoker Past Alcohol Use History: None Reported Additional Past Alcohol Use History / Comment(s): pt states smokes 3/4 pack per day, SMOKED LESS THAN 1PPD, SMOKED FOR 40 YEARS. Past Drug Use History: None Reported Additional Drug Use History / Comment(s): CBD COFFEE rarely - INSTRUCTED NOT TO USE 24 HRS PRIOR TO SURGERY. - Past Family History Father History Unknown: Yes Family Medical History: Cancer Additional Family Medical History / Comment(s): PANCREATIC CANCER Brother(s) History Unknown: Yes Family Medical History: Cancer, Thyroid Disorder Additional Family Medical History / Comment(s): STOMACH CANCER Medications and Allergies Home Medications Medication Instructions Recorded Confirmed Type Albuterol Sulfate [Ventolin HFA] 2 puff INHALATION RT-Q6H PRN 01/01/24 05/08/24 History HYDROcodone/APAP 10-325MG [[place] 1 tab PO Q6HR 01/08/24 05/08/24 History 10-325] Docusate [Colace] 200 mg PO BID 02/24/24 05/08/24 History Levothyroxine Sodium [Synthroid] 88 mcg PO DAILY 02/24/24 05/08/24 History polyethylene glycoL 3350 [Miralax] 17 gm PO BID PRN 02/24/24 05/08/24 History Ondansetron [Zofran] 4 mg PO QID PRN 03/16/24 05/08/24 History LORazepam [Ativan] 1 tab PO BID 04/27/24 05/08/24 History Sennosides [Senokot] 1 tab PO BID 04/27/24 05/08/24 History ALPRAZolam [Xanax] 0.5 mg PO TID PRN 05/08/24 05/08/24 History OLANZapine [ZyPREXA] 2.5 mg PO HS PRN 05/08/24 05/08/24 History droNABinol [Marinol] 2.5 mg PO AC-BID 05/08/24 05/08/24 History Allergies Allergy/AdvReac Type Severity Reaction Status Date / Time No Known Allergies Allergy Verified 05/08/24 15:12 Physical Exam Vitals: Vital Signs Temp Pulse Pulse Resp BP BP Pulse Ox 05/10/24 01:14 97.6 F 64 15 105/65 100 05/09/24 21:40 18 05/09/24 20:40 97.9 F 74 18 99/61 96 05/09/24 20:06 95 18 113/73 94 L 05/09/24 19:22 98 18 109/87 97 05/09/24 17:51 96 20 111/69 98 05/09/24 12:47 98.5 F 99 123/97 97 05/09/24 10:00 81 20 111/81 96 05/09/24 08:52 106 H 16 111/81 05/09/24 08:24 69 05/09/24 08:15 100 05/09/24 08:12 77 05/09/24 06:42 86 20 90/72 100 Intake and Output 05/09/24 05/09/24 05/10/24 14:59 22:59 06:59 Other: Voiding Method Toilet # Voids 1 Weight 34.473 kg GENERAL EXAM: Alert, 68-year-old cachectic white female, on 2 L/min nasal cannula, fairly comfortable in no apparent distress. HEAD: Normocephalic and atraumatic EYES: Normal reaction of pupils, equal size. NOSE: Clear with pink turbinates. THROAT: No erythema or exudates. NECK: No masses, no JVD. CHEST: No chest wall deformity. Right chest Mediport. Left Pleurx catheter insertion site clean, dry, without erythema or drainage LUNGS: Equal air entry with diminished right lung sounds, minimal inspiratory crackles in the left base. On 2 L/min nasal cannula. Tachypnea and accessory muscle use with exertion. CVS: S1 and S2 normal with no audible murmur, regular rhythm. No extra heart sounds ABDOMEN: No hepatosplenomegaly, active bowel sounds, no guarding or rigidity. SPINE: No scoliosis or deformity SKIN: No rashes CENTRAL NERVOUS SYSTEM: No focal deficits, tone is normal in all 4 extremities. EXTREMITIES: There is no peripheral edema, clubbing, or cyanosis. Peripheral pulses are intact. Results - Laboratory Findings CBC and BMP: 05/09/24 06:20 05/08/24 14:02 PT/INR, D-dimer PT 10.8 sec (10.0-12.5) 05/08/24 14:02 INR 1.0 (<1.2) 05/08/24 14:02 Abnormal lab findings: Abnormal Labs 05/08/24 05/08/24 05/09/24 14:02 14:02 06:20 WBC 0.9 L* 0.61 A* RBC 2.32 L Hgb 7.3 L Hct 22.9 L MCV 98.7 H MCHC 31.9 L RDW 14.6 H Plt Count 83 L Neutrophils # 0.06 A* Lymphocytes # 0.47 L Monocytes # 0.07 L Eosinophils # 0 L Sodium 131 L Chloride 97 L Creatinine 0.30 L Phosphorus Total Protein 5.8 L TSH 8.560 H 05/09/24 06:20 WBC RBC Hgb Hct MCV MCHC RDW Plt Count Neutrophils # Lymphocytes # Monocytes # Eosinophils # Sodium Chloride Creatinine Phosphorus 1.6 L Total Protein TSH - Diagnostic Findings Chest x-ray: image reviewed Assessment and Plan Assessment: Recurrent moderate to large right-sided pleural effusion, most recent right- sided thoracentesis done 02/24/2024, and a total of 1.1 L of fluid was removed. Fluid was not sent for cytology at this time. Repeat chest x-ray on this admission shows bilateral pleural effusions, right greater than left. No obvious pneumothoraces. History of malignant left-sided pleural effusion, requiring frequent previous thoracentesis, and eventual Pleurx catheter insertion on 01/14/2024. Patient has been previously draining her catheter weekly, however, over the last 2 weeks no output was noted. Acute on chronic dyspnea, secondary to above History of bilateral apical pneumothoraces, not redemonstrated on most recent chest x-ray Metastatic breast cancer, most recent PET scan performed on 12/03/2023 identified new foci of uptake within the mediastinum and hilar lymph nodes, as well as new foci within the liver, osseous lesions including thoracic vertebral bodies and right ilium and left anterior rib and, as well as persistent uptake in the distal sigmoid colon, these findings are suspicious for disease progression and metastasis. Patient has reportedly started on chemotherapy, which is being directed by her oncologist. Pancytopenia, secondary to systemic chemotherapy treatments History of left-sided mastectomy, secondary to above Severe chronic obstructive pulmonary disease, most recent FEV1 47% of predicted, stable Chronic hypoxemic respiratory failure, maintained on 1-2 L/min nasal cannula while at home Former tobacco smoker, quitting approximately 2 months ago Hypothyroidism, TSH elevated 8.5, awaiting reflex free T4 History of meningitis History of ovarian cyst Severe protein calorie malnutrition Plan: Patient's medications, labs, chest x-ray reviewed Continue supplemental oxygen to maintain oxygen saturation of 90% or greater Obtain chest ultrasound to evaluate right-sided pleural effusion, patient may be candidate for repeat thoracentesis or even Pleurx catheter insertion. Cardiothoracic surgery has already evaluated this patient. Will continue to follow, and additional recommendations are forthcoming. I have personally seen and examined the patient, performed the documentation and the assessment and plan as written. Number of minutes spent on the visit:20 Time with Patient: Greater than 30
[2024-05-10] MEDS: ENOXAPARIN 30 MG/0.3 ML SYRINGE SQ SCH (08:08)
[2024-05-10] MEDS: KETOROLAC 15 MG/ML 1 ML VIAL IVP PRN (08:28)
--- NOTE | 2024-05-10 09:10 | US ---
EXAMINATION TYPE: US chest DATE OF EXAM: 05/10/2024 COMPARISON: 05/08/2024 CLINICAL INDICATION: Female, 68 years old with history of right pleural effusion; TECHNIQUE: Targeted ultrasound of the posterior lower right hemithorax EXAM MEASUREMENTS: Right Pleural Effusion pocket size: 8.1 cm Right skin surface to fluid distance: 1.4 cm Right side marked for possible thoracentesis outside the dept. Pulmonologists are able to review the images in the patient?s EMR. IMPRESSIONS: Right side marked for thoracentesis., Moderate to large pleural effusion.
[2024-05-10 11:04] LABS: HGB 10.3 g/dL (12.0-15.0); MCH 31.3 pg (27.0-32.0); MCHC 32.2 g/dL (32.0-37.0); MCV 97.3 FL (80.0-97.0); Mean Platelet Volume 10.3 FL (9.5-12.2); NRBC Per 100 WBC 0 X 10*3/uL (0.00-0.01); Platelet Count 130 X 10*3/uL (140-440); RBC 3.29 X 10*6/uL (4.10-5.20); RBC Morphology Normal (Normal); RDW 14.6 % (11.5-14.5); WBC 0.83 X 10*3/uL (4.50-10.00)
[2024-05-10 11:29] VITALS: BMI 13.0
[2024-05-10 11:54] LABS: BUN/Creat Ratio 16.33 Ratio (12.00-20.00); Blood Urea Nitrogen 4.9 mg/dL (9.0-27.0); Calcium 8.5 mg/dL (8.7-10.3); Carbon Dioxide 24.5 mmol/L (21.6-31.8); Chloride 101 mmol/L (96-109); Glucose 84 mg/dL (70-110); Magnesium 1.9 mg/dL (1.5-2.4); Potassium 4.4 mmol/L (3.5-5.5); Sodium 136 mmol/L (135-145)
--- NOTE | 2024-05-10 12:07 | P.CONS ---
History of Present Illness - Reason for Consult Consult date: 05/10/24 Oncology Requesting physician: Palomo Muse - Chief Complaint SOB, abd pain, chest pain - History of Present Illness Ms. Canchola is a 68-year-old female patient of Dr. Dee with a history of left breast cancer. She presented in 2021 with pain in the left breast, mass pal pated at the central portion, mammogram 06/12/2022 showed a large irregular, bilobed mass measuring 3.8 cm in the upper outer quadrant. US showed 4.1 x 2.3 x 1.3 cm elongated irregular mass. There was also an abnormally thickened lymph node measuring 9 mm. At 4:00 there was another irregular lesion measuring 1 x 0.7 cm, posteriorly to that lesion measuring 1.8 x 0.9 cm and at 11:00 there was a 0.9 x 0.7 cm lesion. Biopsy 06/26/2022, 1:00 and 4:00 mass showed IDC, grade 2, left axillary tail biopsy showing lymphoid tissue involved with grade 2 ductal carcinoma. All 3 specimen tumor morphology similar appearance, triple negative. Staging PET scan showed uptake in the breast lesions and left axilla, possible uptake in left retropectoral nodes, no distant metastatic disease. She had neoadjuvant carbo/Taxol/Keytruda completing 4 cycles 10/29/2022. She then completed 4 cycles of Adriamycin/Cytoxan plus Keytruda with a 1 week delay. 4 cycles completed 02/02/2023. She continued on Keytruda until surgical resection was planned. Surgery was performed 03/16/2023, LMRM with lymph node dissection. Final path showed multifocal invasive residual ductal carcinoma with negative margins. 10 out of 14 lymph nodes were involved, largest focus of residual cancer was 4.5 cm. Because of significant residual disease adjuvant treatment drugs were changed. Patient did have NGS with no targetable mutations. Breast next testing showed no targetable germline mutations. She was started on Xeloda plus Keytruda. Patient required dose reduction and holding of Xeloda because of significant mucositis and PPE. She also ended up with a rash so, Keytruda was discontinued. She was referred to adjuvant radiation to avoid any delays in treatment. She had a reddish rash involving the incision of the left chest wall, biopsy 11/18/2023 unfortunately showed recurrent grade 3, triple negative breast cancer. Staging PET 12/05/2023 revealed involvement in the mediastinal lymph nodes, a liver lesion as well and as bone involvement of the T-spine, right ilium and left ribs, large pleural effusion noted. She did have a left sided thoracentesis with cytology positive for malignancy. She has required additional thoracentesis. She was last seen inpt here in January, had rt 1.1L thora that visit, unfortunately cytology was not sent on this fluid. Scans had shown that a pleural effusion, had been present on the right previously and tumor markers actually showed improvement. Therefore, plan was to continue on treatment. She cont on eribulin, and is status post cycle 5, day 8. Her tumor makers were ordered in ofc when seen about 2weeks ago but, they were never sent. Patient is currently admitted with left abdominal pain, this is associated with constipation, patient states the pain is worse when she is laying down, it is better when she gets up, she states she is still eating well with the assistance of Marinol, denies fever, nausea, vomiting, no other abdominal discomfort or distention, breathing is at her baseline. She has not had any fluid out of the left Pleurx drain for several weeks. Review of Systems 14 point review of systems is negative except as stated in HPI Past Medical History Past Medical History: Cancer, COPD, Eye Disorder Additional Past Medical History / Comment(s): MENINGITIS, 19 YRS OLD ovarian cyst burst., FLOATER RIGHT EYE., LEFT BREAST CANCER - pt had a recent PET scan that showed at spot that they wanted to check out for mets. Mets to lung new diagnosis May 25 Recurrent left-sided pleural effusion, R sided pleural effusion. History of Any Multi-Drug Resistant Organisms: None Reported Past Surgical History: Hysterectomy, Tonsillectomy Additional Past Surgical History / Comment(s): HARITHA CATARACTS with lens implants, Mastectomy, March 2023; left-sided Pleurx catheter placed January 14, 2024, Port- a -cath. Past Anesthesia/Blood Transfusion Reactions: No Reported Reaction Additional Past Anesthesia/Blood Transfusion Reaction / Comm: HX OF BLOOD TRANSFUSION-NO REACTION Past Psychological History: Anxiety Smoking Status: Former smoker Past Alcohol Use History: None Reported Additional Past Alcohol Use History / Comment(s): pt states smokes 3/4 pack per day, SMOKED LESS THAN 1PPD, SMOKED FOR 40 YEARS. Past Drug Use History: None Reported Additional Drug Use History / Comment(s): CBD COFFEE rarely - INSTRUCTED NOT TO USE 24 HRS PRIOR TO SURGERY. - Past Family History Father History Unknown: Yes Family Medical History: Cancer Additional Family Medical History / Comment(s): PANCREATIC CANCER Brother(s) History Unknown: Yes Family Medical History: Cancer, Thyroid Disorder Additional Family Medical History / Comment(s): STOMACH CANCER Medications and Allergies Home Medications Medication Instructions Recorded Confirmed Type Albuterol Sulfate [Ventolin HFA] 2 puff INHALATION RT-Q6H PRN 01/01/24 05/08/24 History HYDROcodone/APAP 10-325MG [[place] 1 tab PO Q6HR 01/08/24 05/08/24 History 10-325] Docusate [Colace] 200 mg PO BID 02/24/24 05/08/24 History Levothyroxine Sodium [Synthroid] 88 mcg PO DAILY 02/24/24 05/08/24 History polyethylene glycoL 3350 [Miralax] 17 gm PO BID PRN 02/24/24 05/08/24 History Ondansetron [Zofran] 4 mg PO QID PRN 03/16/24 05/08/24 History LORazepam [Ativan] 1 tab PO BID 04/27/24 05/08/24 History Sennosides [Senokot] 1 tab PO BID 04/27/24 05/08/24 History ALPRAZolam [Xanax] 0.5 mg PO TID PRN 05/08/24 05/08/24 History OLANZapine [ZyPREXA] 2.5 mg PO HS PRN 05/08/24 05/08/24 History droNABinol [Marinol] 2.5 mg PO AC-BID 05/08/24 05/08/24 History diazePAM [Valium] 5 mg PO ONCE #1 tab 05/10/24 Rx Allergies Allergy/AdvReac Type Severity Reaction Status Date / Time No Known Allergies Allergy Verified 05/08/24 15:12 Physical Exam Vitals: Vital Signs Temp Pulse Pulse Resp BP BP Pulse Ox 05/10/24 07:57 80 05/10/24 07:45 84 05/10/24 07:44 98.2 F 83 15 123/73 96 05/10/24 01:14 97.6 F 64 15 105/65 100 05/09/24 21:40 18 05/09/24 20:40 97.9 F 74 18 99/61 96 05/09/24 20:06 95 18 113/73 94 L 05/09/24 19:22 98 18 109/87 97 05/09/24 17:51 96 20 111/69 98 05/09/24 12:47 98.5 F 99 123/97 97 05/09/24 10:00 81 20 111/81 96 05/09/24 08:52 106 H 16 111/81 Intake and Output 05/09/24 05/10/24 05/10/24 22:59 06:59 14:59 Other: Voiding Method Toilet # Voids 1 Weight 34.473 kg - Constitutional General appearance: cooperative, no acute distress, thin - EENT Dry, red mucous membranes in general Eyes: anicteric sclerae, EOMI ENT: hearing grossly normal - Neck Neck: no lymphadenopathy - Respiratory Respiratory: bilateral: diminished - Cardiovascular Rhythm: regular Heart sounds: normal: S1, S2 Abnormal Heart Sounds: no systolic murmur, no diastolic murmur, no rub, no S3 Gallop, no S4 Gallop, no click, no other leg Peripheral Edema: bilateral: None - Gastrointestinal General gastrointestinal: normal bowel sounds, soft, tenderness (Left-sided, left lower quadrant) - Integumentary Integumentary: normal - Neurologic Neurologic: CNII-XII intact - Musculoskeletal Musculoskeletal: strength equal bilaterally - Psychiatric Psychiatric: A&O x's 3, appropriate affect, intact judgment & insight Results CBC & Chem 7: 05/10/24 06:47 05/08/24 14:02 Labs: Abnormal Lab Results - Last 24 Hours (Table) 05/09/24 05/09/24 Range/Units 06:20 06:20 WBC 0.61 A* (4.50-10.00) X 10*3/uL RBC 2.32 L (4.10-5.20) X 10*6/uL Hgb 7.3 L (12.0-15.0) g/dL Hct 22.9 L (37.2-46.3) % MCV 98.7 H (80.0-97.0) FL MCHC 31.9 L (32.0-37.0) g/dL RDW 14.6 H (11.5-14.5) % Plt Count 83 L (140-440) X 10*3/uL Neutrophils # 0.06 A* (1.80-7.70) X 10*3/uL Lymphocytes # 0.47 L (0.90-5.00) X 10*3/uL Monocytes # 0.07 L (0.20-1.00) X 10*3/uL Eosinophils # 0 L (0.04-0.35) X 10*3/uL Phosphorus 1.6 L (2.4-5.1) mg/dL Chest x-ray: report reviewed CT scan - abdomen: report reviewed CT scan - pelvis: report reviewed Assessment and Plan (1) Abdominal pain Current Visit: Yes Status: Acute Priority: High Code(s): R10.9 - UNSPECIFIED ABDOMINAL PAIN SNOMED Code(s): 70006525 (2) Triple negative breast cancer Current Visit: No Status: Acute Priority: High Code(s): C50.919 - MALIGNANT NEOPLASM OF UNSP SITE OF UNSPECIFIED FEMALE BREAST SNOMED Code(s): 452515615 Plan: Abdominal pain -Left-sided abdominal pain per patient. Improvement in pain since admission with IV pain medications -Chest x-ray impression vascular congestion, bilateral pleural effusions, no os seous pathology. CT AP without IV contrast reports, lung bases moderate right and small left pleural effusions, liver lesions, periportal edema, large amount stool seen throughout the colon skeletal disease is seen possible mesenteric/pelvic lymphadenopathy, moderate fluid in the pelvis -Imaging showing large amount of stool, concerns for constipation. Patient has been started on medications to relieve constipation -US assess fluid seen on CT-possible paracentesis? Metastatic triple negative breast cancer -Patient has been on treatment with eribulin, she is status post cycle 5, day 8. -Patient scheduled in 2 days for treatment follow-up PET scan. If patient is not able to be discharged before tomorrow at 8 AM, the PET scan will have to be canceled and rescheduled. -Patient last seen in the office about 2-1/2 weeks ago, tumor markers were ordered, these were not done. These have been ordered inpatient. -Back in patient had positive tumor marker response, overall stable imaging. CT AP reports suboptimal evaluation due to lack of IV the contrast. Large hypodense abnormalities seen in the anterior left lobe of the liver increased since prior comparison, no dimensions documented. Patient has known metastatic disease in the liver, known lymphadenopathy, known tony metastatic disease though, this was previously relatively limited. She did have slight increase in her tumor markers on recheck so, plan was to cont treatment and rec heck scans-which is due. Goal of admit is to have pt have a BM and manage pain. Will follow pt hospital course Doctor attests: I performed a history and physical examination of this patient, developed impression and plan of care. Discussed with dictator. I agree with dictators note, documented as a scribe.
[2024-05-10] MEDS: MAG HYDROX/AL HYDROX/SIMETH 30 ML, diphenhydrAMINE ELIXIR 75 MG, LIDOCAINE VISCOUS 2% 3... PO SCH (13:50)
[2024-05-10] MEDS: SALT AND SODA MOUTHWASH 1,000 ML PO SCH (13:50)
--- NOTE | 2024-05-10 21:31 | P.PN ---
Subjective Progress Note Date: 05/10/24 Patient is a 68-year-old female, came in with complaints of shortness of breath and severe chest pain and abdominal pain predominantly on the left side where she has a Pleurx catheter. Patient also bit hyponatremic. Patient is cachectic secondary to cancer. Patient is taking Morehead at home for pain patient pain is severe. Patient's abdominal, liver lesions are worsened compared to previous CT scans patient had a CT scan here which showed moderate to severe right pleural effusion along with mild loculated effusion on the left side and patient has a Pleurx catheter on the left side. Cardiothoracic surgery was consulted, and they evaluated the patient not recommending any Pleurx catheter on the right side but may need a thoracentesis. Patient WBC count is only 0.61 may be receiving chemotherapy. Patient does not have any fever chills nausea vomiting occasionally get constipated because of the pain medications. Patient is mainly admitted for pain management and right-sided pleural effusion and shortness of breath. Patient does have history of COPD does use home oxygen, 2 L and pressure and patient saturating at 97% on 2 L. 05/10/2024 Patient is evaluated today in follow. Reports feeling less short of breath. Had chest ultrasound down which reveals moderate to large right sided pleural effusion. Pulmonary planning on thoracentesis tomorrow. Blood work today reveals white blood cell count 0.83, hgb 10.3, platelet count 130, sodium 136, BUN 4.9, creatinine 0.3. Magnesium 1.9. 95% on 2L of oxygen. REVIEW OF SYSTEMS: CONSTITUTIONAL: No fever, no malaise, no fatigue. Thin built and cachectic HEENT: No recent visual problems or hearing problems. Denied any sore throat. CARDIOVASCULAR: No orthopnea, PND, no palpitations, no syncope. PULMONARY: no hemoptysis. GASTROINTESTINAL: No diarrhea, no nausea, no vomiting, no abdominal pain. NEUROLOGICAL: No headaches, no weakness, no numbness. PHYSICAL EXAMINATION: GENERAL: The patient is alert and oriented x3, not in any acute distress. Cachectic female HEENT: Pupils are round and equally reacting to light. EOMI. No scleral icterus. No conjunctival pallor. Normocephalic, atraumatic. No pharyngeal erythema. No thyromegaly. CARDIOVASCULAR: S1 and S2 present. No murmurs, rubs, or gallops. PULMONARY: Chest is clear to auscultation, no wheezing or crackles. ABDOMEN: Soft, nontender, nondistended, normoactive bowel sounds. No palpable organomegaly. Scaphoid abdomen MUSCULOSKELETAL: No joint swelling or deformity. EXTREMITIES: No cyanosis, clubbing, or pedal edema. NEUROLOGICAL: Gross neurological examination did not reveal any focal deficits. SKIN: No rashes. Assessment and plan -Shortness of breath may be secondary to pleural effusion pulmonary on consult and planning thoracentesis -Abdominal pain and chest pain secondary to metastic disease patient blood pressure is borderline. Patient will be started on Toradol along with GI prophylaxis for pain, continue with Morehead and also add fentanyl patch along with the bowel regimen. 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 Has pleurex catheter left lung. Imaging this admission reveals possible further progression of metastatic disease. Oncology consulted. -Oxygen dependent COPD without any acute exacerbation. -Moderate protein calorie malnutrition from cancer, Continue on marinol. -Hypomagnesemia potassium will be replaced DVT prophylaxis: Lovenox 30 mg subcutaneous GI prophylaxis Full Code The impression and plan of care has been dictated by Chelsea Rhodes, Nurse Practitioner as directed. Dr. Almaz MD I have performed a history and physical examination and medical decision making of this patient, discussed the same with the dictator, and agree with the dictators assessment and plan as written, documented as a scribe. Based on total visit time, I have performed more than 50% of this visit. Objective - Vital Signs Vital signs: Vital Signs Temp 98.2 F 05/10/24 20:00 Pulse 94 05/10/24 20:00 Resp 15 05/10/24 20:00 BP 106/69 05/10/24 20:00 Pulse Ox 95 05/10/24 20:00 FiO2 Intake & Output 05/10/24 05/10/24 05/11/24 06:59 18:59 06:59 Intake Total 880 120 Balance 880 120 Weight 34.473 kg 34.473 kg Intake: Oral 880 120 Other: Voiding Method Toilet Toilet Toilet # Voids 1 2 1 - Labs CBC & Chem 7: 05/10/24 06:47 05/10/24 06:47 Labs: Abnormal Lab Results - Last 24 Hours (Table) 05/10/24 05/10/24 05/10/24 Range/Units 06:47 06:47 11:48 WBC 0.83 A* (4.50-10.00) X 10*3/uL RBC 3.29 L (4.10-5.20) X 10*6/uL Hgb 10.3 L (12.0-15.0) g/dL Hct 32.0 L (37.2-46.3) % MCV 97.3 H (80.0-97.0) FL RDW 14.6 H (11.5-14.5) % Plt Count 130 L (140-440) X 10*3/uL BUN 4.9 L (9.0-27.0) mg/dL Creatinine 0.3 L (0.6-1.5) mg/dL Calcium 8.5 L (8.7-10.3) mg/dL CA 15-3 Antigen 605.0 H (0.0-32.3) U/mL Assessment and Plan Time with Patient: Less than 30
--- NOTE | 2024-05-11 09:25 | XR ---
EXAMINATION TYPE: XR chest 1V portable DATE OF EXAM: 05/11/2024 8:39 AM CLINICAL INDICATION:Female, 68 years old with history of Post right thoracentesis; COMPARISON: Chest radiographs from 05/08/2024 TECHNIQUE: XR chest 1V portable Frontal view of the chest. FINDINGS: Lungs/Pleura: There is no evidence of pleural effusion, focal consolidation, or pneumothorax. Pulmonary vascularity: Unremarkable. Heart/mediastinum: Cardiomediastinal silhouette is unremarkable. Surgical clips project over the hear t. Musculoskeletal: No acute osseous pathology. Left thoracotomy tube without evidence for pneumothorax. Right chest wall [id number] tip in appropriate position at this area vena cava. IMPRESSION: 1. Pulmonary edema versus interstitial lung disease with bilateral pleural effusions. No pneumothora x. 2. Left thoracotomy tube in place.
[2024-05-11] MEDS: LACTULOSE 20 GM/30 ML CUP PO PRN (10:52)
[2024-05-11 12:36] LABS: Magnesium 1.1 mg/dL (1.5-2.4)
[2024-05-11 12:53] LABS: Basophils # (A) 0.03 X 10*3/uL (0.00-0.10); Basophils % (A) 2.7 %; Eosinophils # (A) 0 X 10*3/uL (0.04-0.35); Eosinophils % (A) 0 %; HCT 31.3 % (37.2-46.3); Immature Grans, Automated 0 %; Lymphocytes # (A) 0.67 X 10*3/uL (0.90-5.00); Lymphocytes % (A) 60.4 %; MCHC 31.9 g/dL (32.0-37.0); MCV 96.9 FL (80.0-97.0); Mean Platelet Volume 10.4 FL (9.5-12.2); Monocytes # (A) 0.17 X 10*3/uL (0.20-1.00); Monocytes % (A) 15.3 %; NRBC Per 100 WBC 0 X 10*3/uL (0.00-0.01); Neutrophils # (A) 0.24 X 10*3/uL (1.80-7.70); Neutrophils % (A) 21.6 %; Platelet Count 135 X 10*3/uL (140-440); RBC 3.23 X 10*6/uL (4.10-5.20); RBC Morphology Normal (Normal); RDW 14.7 % (11.5-14.5); WBC 1.11 X 10*3/uL (4.50-10.00)
[2024-05-11 13:06] LABS: Blood Urea Nitrogen 5.2 mg/dL (9.0-27.0); Calcium 5.8 mg/dL (8.7-10.3); Carbon Dioxide 20.1 mmol/L (21.6-31.8); Chloride 112 mmol/L (96-109); Glucose 66 mg/dL (70-110); Potassium 2.9 mmol/L (3.5-5.5); Sodium 139 mmol/L (135-145)
--- NOTE | 2024-05-11 13:37 | P.PN ---
Subjective Progress Note Date: 05/11/24 Patient is a 68-year-old white female with past medical history significant for metastatic breast cancer. She follows with her oncologist Dr. Dee. Reportedly, currently on chemotherapy with 2 weeks on and 1 week off. Last reported systemic treatment was approximately 1 week ago. Of note, she has recurrent bilateral pleural effusions. She did have a left-sided Pleurx catheter inserted by cardiothoracic surgery on 01/14/2024. 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 Back in January, she did have a recurrent moderate to large sized right-sided pleural effusion, and did undergo bedside thoracentesis by Dr. Fuentes, and a total of 1.1 L of fluid was removed. Fluid was not sent for repeat cytology. Patient returns to the emergency department on 05/08/2024 chiefly complaining of left-sided chest pain/left upper quadrant abdominal pain, mostly localized to the Pleurx catheter insertion site. No surrounding erythema or wound drainage. Up until the last couple weeks, she was draining weekly, with a total of 500 mL removed at each interval. Denies any purulent output. Now the output has weaned down to nothing. Denies change in chronic cough, sputum production, hemoptysis. Denies fevers. Patient is currently resting comfortably on 2 L/min nasal cannula, in no acute distress. She is very cachectic. She does become dyspneic with exertion, such as sitting up to go to the restroom. CBC: WBC count 0.61, hemoglobin 7.3, hematocrit 22.9, platelets 83,000. Most recent CMP: Sodium 131, potassium 3.6, chloride 97, serum bicarb 29, BUN 9, creatinine 0.3, glucose 85. Lactic 1.1. LFTs not elevated. Troponin less than 0.012. TSH is elevated at 8.5. Urinalysis unremarkable for infection. Overall, vital signs are stable. The patient is seen today May 11, 2024 in follow-up on the regular medical floor. She is currently sitting up in bed having breakfast. Awake and alert in no acute distress. Maintaining O2 saturations in the 90s on 2 L/min per nasal cannula. She has normal saline at 50 MLS per hour. Ultrasound of the right chest did reveal an 8.1 cm pocket. She did undergo a thoracentesis with 1 L of fluid removed. Fluid sent for analysis and cytology. Follow-up chest x-ray revealed no evidence of pneumothorax. Left Pleurx catheter remains in place. White count 1.11. Hemoglobin 10.0. Platelets 135. Sodium 139. Potassium 2.9. Bicarb 20. BUN 5.2. Creatinine 0.2. Glucose 66. Calcium 5.8. CA 15-3 antigen is 605. [place] 2729 734.2. Remains on bronchodilators. Lovenox for DVT prophylaxis. Objective - Vital Signs Vital signs: Vital Signs Temp 98.2 F 05/11/24 12:02 Pulse 96 05/11/24 12:02 Resp 16 05/11/24 12:02 BP 106/67 05/11/24 12:02 Pulse Ox 98 05/11/24 12:02 FiO2 Intake & Output 05/10/24 05/11/24 05/11/24 18:59 06:59 18:59 Intake Total 880 120 Output Total 300 Balance 880 120 -300 Weight 34.473 kg Intake: Oral 880 120 Output: Urine 300 Other: Voiding Method Toilet Toilet Toilet # Voids 2 4 - Exam GENERAL EXAM: Alert, 68-year-old frail female, on 2 L/min nasal cannula, fairly comfortable in no apparent distress. HEAD: Normocephalic and atraumatic EYES: Normal reaction of pupils, equal size. NOSE: Clear with pink turbinates. THROAT: No erythema or exudates. NECK: No masses, no JVD. CHEST: No chest wall deformity. Right chest Mediport. Left Pleurx catheter insertion site clean, dry, without erythema or drainage LUNGS: Equal air entry with diminished right lung sounds, minimal inspiratory crackles in the left base. CVS: S1 and S2 normal with no audible murmur, regular rhythm. No extra heart sounds ABDOMEN: No hepatosplenomegaly, active bowel sounds, no guarding or rigidity. SPINE: No scoliosis or deformity SKIN: No rashes CENTRAL NERVOUS SYSTEM: No focal deficits, tone is normal in all 4 extremities. EXTREMITIES: There is no peripheral edema, clubbing, or cyanosis. Peripheral pulses are intact. - Labs CBC & Chem 7: 05/11/24 08:04 05/11/24 08:04 Labs: Abnormal Lab Results - Last 24 Hours (Table) 05/10/24 05/10/24 05/11/24 Range/Units 11:48 11:48 08:04 WBC 1.11 A* (4.50-10.00) X 10*3/uL RBC 3.23 L (4.10-5.20) X 10*6/uL Hgb 10.0 L (12.0-15.0) g/dL Hct 31.3 L (37.2-46.3) % MCHC 31.9 L (32.0-37.0) g/dL RDW 14.7 H (11.5-14.5) % Plt Count 135 L (140-440) X 10*3/uL Neutrophils # 0.24 A* (1.80-7.70) X 10*3/uL Lymphocytes # 0.67 L (0.90-5.00) X 10*3/uL Monocytes # 0.17 L (0.20-1.00) X 10*3/uL Eosinophils # 0 L (0.04-0.35) X 10*3/uL Potassium (3.5-5.5) mmol/L Chloride (96-109) mmol/L Carbon Dioxide (21.6-31.8) mmol/L BUN (9.0-27.0) mg/dL Creatinine (0.6-1.5) mg/dL Glucose (70-110) mg/dL Calcium (8.7-10.3) mg/dL Magnesium (1.5-2.4) mg/dL CA 15-3 Antigen 605.0 H (0.0-32.3) U/mL CA 27-29 734.2 H (<38.6) U/mL 05/11/24 Range/Units 08:04 WBC (4.50-10.00) X 10*3/uL RBC (4.10-5.20) X 10*6/uL Hgb (12.0-15.0) g/dL Hct (37.2-46.3) % MCHC (32.0-37.0) g/dL RDW (11.5-14.5) % Plt Count (140-440) X 10*3/uL Neutrophils # (1.80-7.70) X 10*3/uL Lymphocytes # (0.90-5.00) X 10*3/uL Monocytes # (0.20-1.00) X 10*3/uL Eosinophils # (0.04-0.35) X 10*3/uL Potassium 2.9 L (3.5-5.5) mmol/L Chloride 112 H (96-109) mmol/L Carbon Dioxide 20.1 L (21.6-31.8) mmol/L BUN 5.2 L (9.0-27.0) mg/dL Creatinine <0.2 L (0.6-1.5) mg/dL Glucose 66 L (70-110) mg/dL Calcium 5.8 A* (8.7-10.3) mg/dL Magnesium 1.1 L (1.5-2.4) mg/dL CA 15-3 Antigen (0.0-32.3) U/mL CA 27-29 (<38.6) U/mL Assessment and Plan Assessment: Recurrent moderate to large right-sided pleural effusion, most recent right- sided thoracentesis done 02/24/2024, and a total of 1.1 L of fluid was removed. Fluid was not sent for cytology at this time. Repeat chest x-ray on this admission shows bilateral pleural effusions, right greater than left. No obvious pneumothoraces. Right-sided thoracentesis today May 11, 2024 with 1 L of fluid removed. Fluid analysis and cytology pending History of malignant left-sided pleural effusion, requiring frequent previous thoracentesis, and eventual Pleurx catheter insertion on 01/14/2024. Patient has been previously draining her catheter weekly, however, over the last 2 weeks no output was noted. Acute on chronic dyspnea, secondary to above History of bilateral apical pneumothoraces, not redemonstrated on most recent chest x-ray Metastatic breast cancer, most recent PET scan performed on 12/03/2023 identified new foci of uptake within the mediastinum and hilar lymph nodes, as well as new foci within the liver, osseous lesions including thoracic vertebral bodies and right ilium and left anterior rib and, as well as persistent uptake in the distal sigmoid colon, these findings are suspicious for disease progression and metastasis. Patient has reportedly started on chemotherapy, which is being directed by her oncologist. CA 15-3 antigen 605. CA 2729 734. Pancytopenia, secondary to systemic chemotherapy treatments History of left-sided mastectomy, secondary to above Severe chronic obstructive pulmonary disease, most recent FEV1 47% of predicted, stable Chronic hypoxemic respiratory failure, maintained on 1-2 L/min nasal cannula while at home Former tobacco smoker, quitting approximately 2 months ago Hypothyroidism, TSH elevated 8.5, awaiting reflex free T4 History of meningitis History of ovarian cyst Severe protein calorie malnutrition Plan: The patient was seen and evaluated Chest x-ray, labs and medications reviewed Status post thoracentesis today Follow-up chest x-ray revealed no pneumothorax Stable and on 2 L nasal cannula Plan is for home with home care at discharge I have personally seen and examined the patient, performed the documentation and the assessment and plan as written. Number of minutes spent on the visit: 10.
[2024-05-11] MEDS ORDERED: Magnesium Replacement Protocol 1 EACH MISC MISCELLANE PRN (14:15)
[2024-05-11] MEDS: CALCIUM GLUCONATE IN NACL 2 GM in SALINE 1 100ML.BAG IVPB ONE (15:15)
--- NOTE | 2024-05-11 15:25 | P.PN ---
Subjective Progress Note Date: 05/11/24 Principal diagnosis: Abd pain, met breast cancer In f/u today pt cont to report lt/upper abd pain, "sharp", does not improve much with pain meds. Confirmed pain stays about 7/10 most of the time. She has had only small amount of stool, denies fever, N,V, appetite is fiar to good, no dysuria. Objective - Vital Signs Vital signs: Vital Signs Temp 98.2 F 05/11/24 12:02 Pulse 96 05/11/24 12:02 Resp 16 05/11/24 12:02 BP 106/67 05/11/24 12:02 Pulse Ox 98 05/11/24 12:02 FiO2 Intake & Output 05/10/24 05/11/24 05/11/24 18:59 06:59 18:59 Intake Total 880 120 Output Total 300 Balance 880 120 -300 Weight 34.473 kg Intake: Oral 880 120 Output: Urine 300 Other: Voiding Method Toilet Toilet Toilet # Voids 2 4 - Constitutional General appearance: Present: cooperative, no acute distress, thin - EENT EENT Comment(s): oral redness is less intense from yesterday Eyes: Present: anicteric sclerae, EOMI ENT: Present: hearing grossly normal - Respiratory Respiratory: bilateral: diminished - Cardiovascular Rhythm: regular Heart sounds: normal: S1, S2 Abnormal Heart Sounds: Absent: systolic murmur, diastolic murmur, rub, S3 Gallop, S4 Gallop, click, other - Peripheral edema leg Peripheral Edema: bilateral: None - Gastrointestinal General gastrointestinal: Present: tenderness Localized gastrointestinal: tender: LUQ, LLQ, epigastric periumbilical - Neurologic Neurologic: Present: CNII-XII intact - Musculoskeletal Musculoskeletal: Present: strength equal bilaterally - Psychiatric Psychiatric: Present: A&O x's 3, appropriate affect, intact judgment & insight - Labs CBC & Chem 7: 05/11/24 08:04 05/11/24 08:04 Labs: Abnormal Lab Results - Last 24 Hours (Table) 05/10/24 05/10/24 05/11/24 Range/Units 11:48 11:48 08:04 WBC 1.11 A* (4.50-10.00) X 10*3/uL RBC 3.23 L (4.10-5.20) X 10*6/uL Hgb 10.0 L (12.0-15.0) g/dL Hct 31.3 L (37.2-46.3) % MCHC 31.9 L (32.0-37.0) g/dL RDW 14.7 H (11.5-14.5) % Plt Count 135 L (140-440) X 10*3/uL Neutrophils # 0.24 A* (1.80-7.70) X 10*3/uL Lymphocytes # 0.67 L (0.90-5.00) X 10*3/uL Monocytes # 0.17 L (0.20-1.00) X 10*3/uL Eosinophils # 0 L (0.04-0.35) X 10*3/uL Potassium (3.5-5.5) mmol/L Chloride (96-109) mmol/L Carbon Dioxide (21.6-31.8) mmol/L BUN (9.0-27.0) mg/dL Creatinine (0.6-1.5) mg/dL Glucose (70-110) mg/dL Calcium (8.7-10.3) mg/dL Magnesium (1.5-2.4) mg/dL CA 15-3 Antigen 605.0 H (0.0-32.3) U/mL CA 27-29 734.2 H (<38.6) U/mL 05/11/24 Range/Units 08:04 WBC (4.50-10.00) X 10*3/uL RBC (4.10-5.20) X 10*6/uL Hgb (12.0-15.0) g/dL Hct (37.2-46.3) % MCHC (32.0-37.0) g/dL RDW (11.5-14.5) % Plt Count (140-440) X 10*3/uL Neutrophils # (1.80-7.70) X 10*3/uL Lymphocytes # (0.90-5.00) X 10*3/uL Monocytes # (0.20-1.00) X 10*3/uL Eosinophils # (0.04-0.35) X 10*3/uL Potassium 2.9 L (3.5-5.5) mmol/L Chloride 112 H (96-109) mmol/L Carbon Dioxide 20.1 L (21.6-31.8) mmol/L BUN 5.2 L (9.0-27.0) mg/dL Creatinine <0.2 L (0.6-1.5) mg/dL Glucose 66 L (70-110) mg/dL Calcium 5.8 A* (8.7-10.3) mg/dL Magnesium 1.1 L (1.5-2.4) mg/dL CA 15-3 Antigen (0.0-32.3) U/mL CA 27-29 (<38.6) U/mL - Imaging and Cardiology Chest x-ray: report reviewed chest US report reviewed Assessment and Plan (1) Abdominal pain Current Visit: Yes Status: Acute Priority: High Code(s): R10.9 - UNSP ECIFIED ABDOMINAL PAIN SNOMED Code(s): 61687255 (2) Triple negative breast cancer Current Visit: No Status: Acute Priority: High Code(s): C50.919 - M ALIGNANT NEOPLASM OF UNSP SITE OF UNSPECIFIED FEMALE BREAST SNOMED Code(s): 866018794 Plan: Abdominal pain -Left-sided abdominal pain per patient. As of today, pain is the same. Confirmed when she takes pain meds it helps for about 2 hours. She has 0.5mg dilaudid every 3 hours available, has used 3 times in last 24 hours. She has norco 10/325 scheduled and that is given every 6 hours. She had 1 dose of toradol in 24 hours. Fentanyl was added 2 days ago. Pain is constantly rated about 7/10. Pt agreed to pain goal of 2-4/10. DC toradol. Increased freq of norco, keep scheduled. IV dilaudid left PRN for now. Discussed with Nursing. Recheck in AM -Chest x-ray impression vascular congestion, bilateral pleural effusions, no osseous pathology. CT AP without IV contrast reports, lung bases moderate right and small left pleural effusions, liver lesions, periportal edema, large amount stool seen throughout the colon skeletal disease is seen possible mesenteric/pelvic lymphadenopathy, moderate fluid in the pelvis. Possible paracentesis if abd pain does not improve -Pt had rt thoracentesis today, cytology pending -Imaging showing large amount of stool, concerns for constipation. Patient has been started on medications to relieve constipation. Small amt of stool reported. Cont all meds, PRN meds will be used Metastatic triple negative breast cancer -Patient has been on treatment with eribulin, she is status post cycle 5, day 8. -Back in patient had positive tumor marker response, overall stable imaging. CT AP this visit reports suboptimal evaluation due to lack of IV the contrast. Large hypodense abnormalities seen in the anterior left lobe of the liver increased since prior comparison, no dimensions documented. Patient has known metastatic disease in the liver, known lymphadenopathy, known bony metastatic disease though, this was previously relatively limited. She did have slight increase in her tumor markers on recheck at that time so, plan was to cont treatment and recheck scans-PET was sched for tomorrow. This will be rescheduled. -Ca 15.3 in March was 199, now 605, Ca 27.29 in march was 303, now 743. Reviewed with pt increase in tumor markers. This, along with reported worsening of known disease on CT AP, most consistent with disease progression. She is going to require a change in treatment. Plan is to get restaging done with PET then f/u with Dr. Dee to discuss other options for treatment. Pt verbalized understanding plan and agrees with the same. Goal is to get pain controlled and for pt to have BM. Will cont to follow pt hospital course
[2024-05-11] MEDS: HYDROcodone/APAP 10-325MG 1 EACH TAB PO SCH (15:43)
[2024-05-11] MEDS: POTASSIUM CHLORIDE ER 20 MEQ TAB.ER PO SCH (15:44)
[2024-05-11] MEDS: ONDANSETRON 4 MG/2 ML VIAL IVP PRN (15:50)
[2024-05-11 15:54] LABS: Total Protein 3.4 g/dL (6.2-8.2)
[2024-05-11] MEDS: MAGNESIUM SULFATE-D5W PMX 1 GM in DEXTROSE/WATER 1 100ML.BAG IVPB SCH (16:53)
--- NOTE | 2024-05-11 20:32 | P.PN ---
Subjective Progress Note Date: 05/11/24 Patient is a 68-year-old female, came in with complaints of shortness of breath and severe chest pain and abdominal pain predominantly on the left side where she has a Pleurx catheter. Patient also bit hyponatremic. Patient is cachectic secondary to cancer. Patient is taking Paxton at home for pain patient pain is severe. Patient's abdominal, liver lesions are worsened compared to previous CT scans patient had a CT scan here which showed moderate to severe right pleural effusion along with mild loculated effusion on the left side and patient has a Pleurx catheter on the left side. Cardiothoracic surgery was consulted, and they evaluated the patient not recommending any Pleurx catheter on the right side but may need a thoracentesis. Patient WBC count is only 0.61 may be receiving chemotherapy. Patient does not have any fever chills nausea vomiting occasionally get constipated because of the pain medications. Patient is mainly admitted for pain management and right-sided pleural effusion and shortness of breath. Patient does have history of COPD does use home oxygen, 2 L and pressure and patient saturating at 97% on 2 L. 05/10/2024 Patient is evaluated today in follow. Reports feeling less short of breath. Had chest ultrasound down which reveals moderate to large right sided pleural effusion. Pulmonary planning on thoracentesis tomorrow. Blood work today reveals white blood cell count 0.83, hgb 10.3, platelet count 130, sodium 136, BUN 4.9, creatinine 0.3. Magnesium 1.9. 95% on 2L of oxygen. 05/11/2024 Patient is evaluated today in follow up. Sitting up in the bed continues to report significant left lower abdominal pain radiating up into the left shoulder. Does have some suprapubic distention. Patient had thoracentesis today, right sided with 1000 cc fluid drained from the pleural space and sent for cytology. Blood work today reveals white blood cell count 1.11, hgb 10.0, platelet count 135, potassium 2.9, BUN 5.2, creatinine <0.2, calcium 5.8 and magnesium 1.1. CA antigens are elevated. Oncology and pulmonary following. REVIEW OF SYSTEMS: CONSTITUTIONAL: No fever, no malaise, no fatigue. Thin built and cachectic HEENT: No recent visual problems or hearing problems. Denied any sore throat. CARDIOVASCULAR: No orthopnea, PND, no palpitations, no syncope. PULMONARY: no hemoptysis. GASTROINTESTINAL: No diarrhea, no nausea, no vomiting, no abdominal pain. NEUROLOGICAL: No headaches, no weakness, no numbness. PHYSICAL EXAMINATION: GENERAL: The patient is alert and oriented x3, not in any acute distress. Cachectic female HEENT: Pupils are round and equally reacting to light. EOMI. No scleral icterus. No conjunctival pallor. Normocephalic, atraumatic. No pharyngeal erythema. No thyromegaly. CARDIOVASCULAR: S1 and S2 present. No murmurs, rubs, or gallops. PULMONARY: Chest is clear to auscultation, no wheezing or crackles. ABDOMEN: Soft, LLQ tender, nondistended, normoactive bowel sounds. No palpable organomegaly. Scaphoid abdomen MUSCULOSKELETAL: No joint swelling or deformity. EXTREMITIES: No cyanosis, clubbing, or pedal edema. NEUROLOGICAL: Gross neurological examination did not reveal any focal deficits. SKIN: No rashes. Assessment and plan -Shortness of breath may be secondary to pleural effusion pulmonary on consult patient is status post thoracentesis on the right sided. Sent for cytology. -Abdominal pain and chest pain secondary to metastic disease patient blood pressure is borderline. Patient will be started on Toradol along with GI prophylaxis for pain, continue with Paxton and also add fentanyl patch along with the bowel regimen. 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 Has pleurex catheter left lung. Imaging this admission reveals possible further progression of metastatic disease. Oncology consulted. -Pancytopenia -Oxygen dependent COPD without any acute exacerbation. -Abdominal distention, rule out urinary retention check bladder scan -Constipation continue with lactulose BID until bowel movement may be contributing to her abdominal discomfort. -Severe protein calorie malnutrition from cancer, Continue on marinol. -Hypomagnesemia, hypokalemia, hypocalcemia will be replaced and repeat blood work in the AM. DVT prophylaxis: Lovenox 30 mg subcutaneous GI prophylaxis Full Code The impression and plan of care has been dictated by Chelsea Rhodes, Nurse Practitioner as directed. Dr. Almaz MD I have performed a history and physical examination and medical decision making of this patient, discussed the same with the dictator, and agree with the dictators assessment and plan as written, documented as a scribe. Based on total visit time, I have performed more than 50% of this visit. Objective - Vital Signs Vital signs: Vital Signs Temp 98.2 F 05/11/24 12:02 Pulse 96 05/11/24 12:02 Resp 16 05/11/24 20:00 BP 106/67 05/11/24 12:02 Pulse Ox 98 05/11/24 12:02 FiO2 Intake & Output 05/11/24 05/11/24 05/12/24 06:59 18:59 06:59 Intake Total 120 Output Total 300 Balance 120 -300 Intake: Oral 120 Output: Urine 300 Other: Voiding Method Toilet Toilet Toilet # Voids 4 3 # Bowel Movements 2 - Labs CBC & Chem 7: 05/11/24 08:04 05/11/24 08:04 Labs: Abnormal Lab Results - Last 24 Hours (Table) 05/10/24 05/11/24 05/11/24 Range/Units 11:48 08:04 08:04 WBC 1.11 A* (4.50-10.00) X 10*3/uL RBC 3.23 L (4.10-5.20) X 10*6/uL Hgb 10.0 L (12.0-15.0) g/dL Hct 31.3 L (37.2-46.3) % MCHC 31.9 L (32.0-37.0) g/dL RDW 14.7 H (11.5-14.5) % Plt Count 135 L (140-440) X 10*3/uL Neutrophils # 0.24 A* (1.80-7.70) X 10*3/uL Lymphocytes # 0.67 L (0.90-5.00) X 10*3/uL Monocytes # 0.17 L (0.20-1.00) X 10*3/uL Eosinophils # 0 L (0.04-0.35) X 10*3/uL Potassium 2.9 L (3.5-5.5) mmol/L Chloride 112 H (96-109) mmol/L Carbon Dioxide 20.1 L (21.6-31.8) mmol/L BUN 5.2 L (9.0-27.0) mg/dL Creatinine <0.2 L (0.6-1.5) mg/dL Glucose 66 L (70-110) mg/dL Calcium 5.8 A* (8.7-10.3) mg/dL Magnesium 1.1 L (1.5-2.4) mg/dL Total Protein (6.2-8.2) g/dL CA 27-29 734.2 H (<38.6) U/mL 05/11/24 Range/Units 08:04 WBC (4.50-10.00) X 10*3/uL RBC (4.10-5.20) X 10*6/uL Hgb (12.0-15.0) g/dL Hct (37.2-46.3) % MCHC (32.0-37.0) g/dL RDW (11.5-14.5) % Plt Count (140-440) X 10*3/uL Neutrophils # (1.80-7.70) X 10*3/uL Lymphocytes # (0.90-5.00) X 10*3/uL Monocytes # (0.20-1.00) X 10*3/uL Eosinophils # (0.04-0.35) X 10*3/uL Potassium (3.5-5.5) mmol/L Chloride (96-109) mmol/L Carbon Dioxide (21.6-31.8) mmol/L BUN (9.0-27.0) mg/dL Creatinine (0.6-1.5) mg/dL Glucose (70-110) mg/dL Calcium (8.7-10.3) mg/dL Magnesium (1.5-2.4) mg/dL Total Protein 3.4 L (6.2-8.2) g/dL CA 27-29 (<38.6) U/mL Assessment and Plan Time with Patient: Less than 30
--- NOTE | 2024-05-11 22:37 | OP ---
OPERATIVE REPORT DATE OF SERVICE : PROCEDURE PERFORMED: Right-sided thoracentesis. PREOPERATIVE DIAGNOSIS: Right-sided pleural effusion. POSTOPERATIVE DIAGNOSIS: Right-sided pleural effusion. ANESTHESIA USED: 2 mL of 1% lidocaine. DESCRIPTION OF PROCEDURE: The patient was placed in a sitting upright position, the area of the fluid was earlier localized by ultrasound, and a marking was placed at the level of the 9th intercostal space and tip of the scapula. The area below the right scapula was prepared in a sterile fashion, and drapes were applied, and the area which was localized by ultrasound was locally anesthetized with 2 mL of 1% lidocaine. Then, the pleural space was entered with a 26-gauge needle, and the fluid was localized with the needle. Then, a small tiny incision was made at the same site and the standard thoracentesis catheter with a needle were used, advanced into the pleural space, and as soon as the fluid was obtained, the catheter was advanced out of the needle, and the needle was pulled out of the pleural space. Freely flowing fluid was removed, roughly 1000 mL of straw-colored fluid removed from the right pleural space. Fluid was sent for different diagnostic studies. The chest x-ray postoperatively showed no evidence of complications. Procedure was well tolerated. MMODL / IJN: [id number] /
[2024-05-12 03:46] LABS: Glucose, BF Source Pleural Fluid; Glucose, Body Fluid 90 mg/dL; LDH, Body Fluid Source Pleural Fluid; T. Protein, Body Fluid Source Pleural Fluid; Total Protein, Body Fluid 3420 mg/dL
[2024-05-12 04:36] LABS: Appearance,BF Clear (Clear)
[2024-05-12 09:04] LABS: BUN/Creat Ratio 12.67 Ratio (12.00-20.00); Blood Urea Nitrogen 3.8 mg/dL (9.0-27.0); Calcium 8.3 mg/dL (8.7-10.3); Carbon Dioxide 29.2 mmol/L (21.6-31.8); Chloride 100 mmol/L (96-109); Glucose 78 mg/dL (70-110); Magnesium 2.1 mg/dL (1.5-2.4); Potassium 4.5 mmol/L (3.5-5.5); Sodium 135 mmol/L (135-145)
[2024-05-12 09:52] LABS: Basophils # (A) 0.02 X 10*3/uL (0.00-0.10); Basophils % (A) 1.6 %; Eosinophils # (A) 0.01 X 10*3/uL (0.04-0.35); Eosinophils % (A) 0.8 %; HCT 30.9 % (37.2-46.3); Immature Grans, Automated 0 %; Lymphocytes # (A) 0.74 X 10*3/uL (0.90-5.00); Lymphocytes % (A) 57.8 %; MCH 30.7 pg (27.0-32.0); MCHC 32.4 g/dL (32.0-37.0); MCV 94.8 FL (80.0-97.0); Mean Platelet Volume 10.3 FL (9.5-12.2); Monocytes # (A) 0.28 X 10*3/uL (0.20-1.00); Monocytes % (A) 21.9 %; NRBC Per 100 WBC 0 X 10*3/uL (0.00-0.01); Neutrophils # (A) 0.23 X 10*3/uL (1.80-7.70); Neutrophils % (A) 17.9 %; Platelet Count 130 X 10*3/uL (140-440); RBC 3.26 X 10*6/uL (4.10-5.20); RBC Morphology Normal (Normal); RDW 14.9 % (11.5-14.5); WBC 1.28 X 10*3/uL (4.50-10.00)
--- NOTE | 2024-05-12 13:24 | P.PN ---
Subjective Progress Note Date: 05/12/24 Patient is a 68-year-old white female with past medical history significant for metastatic breast cancer. She follows with her oncologist Dr. Dee. Reportedly, currently on chemotherapy with 2 weeks on and 1 week off. Last reported systemic treatment was approximately 1 week ago. Of note, she has recurrent bilateral pleural effusions. She did have a left-sided Pleurx catheter inserted by cardiothoracic surgery on 01/14/2024. 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 Back in January, she did have a recurrent moderate to large sized right-sided pleural effusion, and did undergo bedside thoracentesis by Dr. Fuentes, and a total of 1.1 L of fluid was removed. Fluid was not sent for repeat cytology. Patient returns to the emergency department on 05/08/2024 chiefly complaining of left-sided chest pain/left upper quadrant abdominal pain, mostly localized to the Pleurx catheter insertion site. No surrounding erythema or wound drainage. Up until the last couple weeks, she was draining weekly, with a total of 500 mL removed at each interval. Denies any purulent output. Now the output has weaned down to nothing. Denies change in chronic cough, sputum production, hemoptysis. Denies fevers. Patient is currently resting comfortably on 2 L/min nasal cannula, in no acute distress. She is very cachectic. She does become dyspneic with exertion, such as sitting up to go to the restroom. CBC: WBC count 0.61, hemoglobin 7.3, hematocrit 22.9, platelets 83,000. Most recent CMP: Sodium 131, potassium 3.6, chloride 97, serum bicarb 29, BUN 9, creatinine 0.3, glucose 85. Lactic 1.1. LFTs not elevated. Troponin less than 0.012. TSH is elevated at 8.5. Urinalysis unremarkable for infection. Overall, vital signs are stable. The patient is seen today May 11, 2024 in follow-up on the regular medical floor. She is currently sitting up in bed having breakfast. Awake and alert in no acute distress. Maintaining O2 saturations in the 90s on 2 L/min per nasal cannula. She has normal saline at 50 MLS per hour. Ultrasound of the right chest did reveal an 8.1 cm pocket. She did undergo a thoracentesis with 1 L of fluid removed. Fluid sent for analysis and cytology. Follow-up chest x-ray revealed no evidence of pneumothorax. Left Pleurx catheter remains in place. White count 1.11. Hemoglobin 10.0. Platelets 135. Sodium 139. Potassium 2.9. Bicarb 20. BUN 5.2. Creatinine 0.2. Glucose 66. Calcium 5.8. CA 15-3 antigen is 605. CA 2729 734.2. Remains on bronchodilators. Lovenox for DVT prophylaxis. The patient is seen today May 12, 2024 in follow-up on the regular medical floor. She is resting comfortably in bed. Awake and alert in no acute distress. Breathing easier today compared to yesterday. Maintaining good O2 sa turation in the 90s on 2 L/min per nasal cannula. White count 1.28. Hemoglobin 10.0. Platelets 130. Sodium 135. Potassium 4.5. Bicarb 29. BUN 4. Creatinine 0.3. Glucose 78. Pleural fluid cytology pending. She remains on Lovenox for DVT prophylaxis. Normal saline at 50 MLS per hour. Appetite fair. Objective - Vital Signs Vital signs: Vital Signs Temp 97.2 F L 05/12/24 07:45 Pulse 82 05/12/24 07:57 Resp 15 05/12/24 07:45 BP 101/69 05/12/24 07:45 Pulse Ox 94 L 05/12/24 07:46 FiO2 Intake & Output 05/11/24 05/12/24 05/12/24 18:59 06:59 18:59 Output Total 300 Balance -300 Output: Urine 300 Other: Voiding Method Toilet Toilet Toilet # Voids 3 2 # Bowel Movements 2 1 - Exam GENERAL EXAM: Alert, 68-year-old frail female, sitting up having breakfast, on 2 L/min nasal cannula, fairly comfortable in no apparent distress. HEAD: Normocephalic and atraumatic EYES: Normal reaction of pupils, equal size. NOSE: Clear with pink turbinates. THROAT: No erythema or exudates. NECK: No masses, no JVD. CHEST: No chest wall deformity. Right chest Mediport. Left Pleurx catheter insertion site clean, dry, without erythema or drainage LUNGS: Equal air entry with diminished right lung sounds, minimal inspiratory crackles in the left base. CVS: S1 and S2 normal with no audible murmur, regular rhythm. No extra heart s ounds ABDOMEN: No hepatosplenomegaly, active bowel sounds, no guarding or rigidity. SPINE: No scoliosis or deformity SKIN: No rashes CENTRAL NERVOUS SYSTEM: No focal deficits, tone is normal in all 4 extremities. EXTREMITIES: There is no peripheral edema, clubbing, or cyanosis. Peripheral pulses are intact. - Labs CBC & Chem 7: 05/12/24 05:05 05/12/24 05:05 Labs: Abnormal Lab Results - Last 24 Hours (Table) 05/11/24 05/12/24 05/12/24 Range/Units 08:04 05:05 05:05 WBC 1.28 A* (4.50-10.00) X 10*3/uL RBC 3.26 L (4.10-5.20) X 10*6/uL Hgb 10.0 L (12.0-15.0) g/dL Hct 30.9 L (37.2-46.3) % RDW 14.9 H (11.5-14.5) % Plt Count 130 L (140-440) X 10*3/uL Neutrophils # 0.23 A* (1.80-7.70) X 10*3/uL Lymphocytes # 0.74 L (0.90-5.00) X 10*3/uL Eosinophils # 0.01 L (0.04-0.35) X 10*3/uL BUN 3.8 L (9.0-27.0) mg/dL Creatinine 0.3 L (0.6-1.5) mg/dL Calcium 8.3 L (8.7-10.3) mg/dL Total Protein 3.4 L (6.2-8.2) g/dL Microbiology - Last 24 Hours (Table) 05/11/24 08:15 Gram Stain - Preliminary Pleural Fluid Assessment and Plan Assessment: Recurrent moderate to large right-sided pleural effusion, most recent right- sided thoracentesis done 02/24/2024, and a total of 1.1 L of fluid was removed. Fluid was not sent for cytology at this time. Repeat chest x-ray on this admission shows bilateral pleural effusions, right greater than left. No obvious pneumothoraces. Right-sided thoracentesis on May 11, 2024 with 1 L of fluid removed. Fluid cytology pending History of malignant left-sided pleural effusion, requiring frequent previous thoracentesis, and eventual Pleurx catheter insertion on 01/14/2024. Patient has been previously draining her catheter weekly, however, over the last 2 weeks no output was noted. Acute on chronic dyspnea, secondary to above History of bilateral apical pneumothoraces, not redemonstrated on most recent chest x-ray Metastatic breast cancer, most recent PET scan performed on 12/03/2023 identified new foci of uptake within the mediastinum and hilar lymph nodes, as well as new foci within the liver, osseous lesions including thoracic vertebral bodies and right ilium and left anterior rib and, as well as persistent uptake in the distal sigmoid colon, these findings are suspicious for disease progression and metastasis. Patient has reportedly started on chemotherapy, which is being directed by her oncologist. CA 15-3 antigen 605. CA 2729 734. Pancytopenia, secondary to systemic chemotherapy treatments History of left-sided mastectomy, secondary to above Severe chronic obstructive pulmonary disease, most recent FEV1 47% of predicted, stable Chronic hypoxemic respiratory failure, maintained on 1-2 L/min nasal cannula while at home Former tobacco smoker, quitting approximately 2 months ago Hypothyroidism, TSH elevated 8.5, awaiting reflex free T4 History of meningitis History of ovarian cyst Severe protein calorie malnutrition Plan: The patient was seen and evaluated Labs and medications reviewed Remains on narcotics for abdominal pain Plan is for home with home care at discharge I have personally seen and examined the patient, performed the documentation and the assessment and plan as written. Number of minutes spent on the visit: 10.
[2024-05-12 14:38] VITALS: BP 118/80; PULSE 100; RESP 16; TEMP 97.8
--- NOTE | 2024-05-12 17:32 | P.PN ---
Subjective Progress Note Date: 05/12/24 Principal diagnosis: Abd pain, met breast cancer In f/u today pt has had rt thora, lt pleurex did not have any drainage when accessed, she is breathing much better. She did have BM. Her lt side abd pain persists but is better, she feels she can function. Denies fever, N,V, she is wanting to eat now. Objective - Vital Signs Vital signs: Vital Signs Temp 97.8 F 05/12/24 14:20 Pulse 100 05/12/24 14:20 Resp 16 05/12/24 14:20 BP 118/80 05/12/24 14:20 Pulse Ox 91 L 05/12/24 14:20 FiO2 Intake & Output 05/11/24 05/12/24 05/12/24 18:59 06:59 18:59 Output Total 300 Balance -300 Output: Urine 300 Other: Voiding Method Toilet Toilet Toilet # Voids 3 2 3 # Bowel Movements 2 1 2 - Constitutional General appearance: Present: cooperative, no acute distress, thin - EENT Eyes: Present: anicteric sclerae, EOMI ENT: Present: hearing grossly normal - Respiratory Respiratory: bilateral: CTA - Cardiovascular Rhythm: regular - Gastrointestinal General gastrointestinal: Present: soft, tenderness - Neurologic Neurologic: Present: CNII-XII intact - Musculoskeletal Musculoskeletal: Present: generalized weakness, strength equal bilaterally - Psychiatric Psychiatric: Present: A&O x's 3, appropriate affect, intact judgment & insight - Labs CBC & Chem 7: 05/12/24 05:05 05/12/24 05:05 Labs: Abnormal Lab Results - Last 24 Hours (Table) 05/12/24 05/12/24 Range/Units 05:05 05:05 WBC 1.28 A* (4.50-10.00) X 10*3/uL RBC 3.26 L (4.10-5.20) X 10*6/uL Hgb 10.0 L (12.0-15.0) g/dL Hct 30.9 L (37.2-46.3) % RDW 14.9 H (11.5-14.5) % Plt Count 130 L (140-440) X 10*3/uL Neutrophils # 0.23 A* (1.80-7.70) X 10*3/uL Lymphocytes # 0.74 L (0.90-5.00) X 10*3/uL Eosinophils # 0.01 L (0.04-0.35) X 10*3/uL BUN 3.8 L (9.0-27.0) mg/dL Creatinine 0.3 L (0.6-1.5) mg/dL Calcium 8.3 L (8.7-10.3) mg/dL Microbiology - Last 24 Hours (Table) 05/11/24 08:15 Gram Stain - Preliminary Pleural Fluid Assessment and Plan (1) Abdominal pain Current Visit: Yes Status: Acute Priority: High Code(s): R10.9 - UNSPECIFIED ABDOMINAL PAIN SNOMED Code(s): 95463137 (2) Triple negative breast cancer Current Visit: No Status: Acute Priority: High Code(s): C50.919 - MALIGNANT NEOPLASM OF UNSP SITE OF UNSPECIFIED FEMALE BREAST SNOMED Code(s): 816811565 Plan: Abdominal pain -Left-sided abdominal pain tolerable, stable with current analgesics, per pt. -Chest x-ray impression vascular congestion, bilateral pleural effusions, no osseous pathology. CT AP without IV contrast reports, lung bases moderate right and small left pleural effusions, liver lesions, periportal edema, large amount stool seen throughout the colon skeletal disease is seen possible mesenteric/pelvic lymphadenopathy, moderate fluid in the pelvis. Possible paracentesis in the future if abd pain persists or progresses. -Pt had rt thoracentesis today, cytology pending, pt reports improved breathing. No fluid drained from lt pleurex -Imaging showing large amount of stool, concerns for constipation. Pt has now had BM and reports some improvement in her abd pain. recommend cont all meds to promote BM and prevent narcotic induced constipation -Fentanyl Rx sent from office because a 3 day Rx will not get pt to her next appt in office for refill. Discussed with [employer] G[employer]r pt need for indigent funds as she cannot afford her Rx. Metastatic triple negative breast cancer -Patient has been on treatment with eribulin, she is status post cycle 5, day 8. -Back in patient had positive tumor marker response, overall stable imaging. CT AP this visit reports suboptimal evaluation due to lack of IV the contrast. Large hypodense abnormalities seen in the anterior left lobe of the liver increased since prior comparison, no dimensions documented. Patient has known metastatic disease in the liver, known lymphadenopathy, known bony metastatic disease though, this was previously relatively limited. She did have slight increase in her tumor markers on recheck at that time so, plan was to cont treatment and recheck scans-PET rescheduled. -Ca 15.3 in March was 199, now 605, Ca 27.29 in march was 303, now 743. Reviewed with pt increase in tumor markers. This, along with reported worsening of known disease on CT AP, most consistent with disease progression. She is going to require a change in treatment. Plan is to get restaging done with PET then f/u with Dr. Dee to discuss other options for treatment. Pt verbalized understanding plan and agrees with the same. Appts have been made, pt will be contacted with those dates and times
--- NOTE | 2024-05-14 08:41 | P.DS ---
Providers Date of admission: 05/09/24 07:05 Attending physician: Katherine Hernandez Consults: 05/08/24 17:10 Consult Physician Routine Consulting Provider: Tony Lazar Consult Reason/Comments: known Do you want consulting provider notified?: Yes 05/09/24 13:44 Consult Physician Stat Consulting Provider: Isra Dee Consult Reason/Comments: Oncology Do you want consulting provider notified?: Yes 05/09/24 15:43 Consult Physician Routine Consulting Provider: Matt Vaz Consult Reason/Comments: Lung cancer with right-sided pleural effusion Do you want consulting provider notified?: Yes Primary care physician: Roney [facility] Hospital Course: Final Diagnosis -Shortness of breath may be secondary to pleural effusion pulmonary on consult patient is status post thoracentesis on the right sided. Sent for cytology. -Abdominal pain and chest pain secondary to metastic disease patient blood pressure is borderline. Patient will be started on Toradol along with GI prophylaxis for pain, continue with Denver and also add fentanyl patch along with the bowel regimen. 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 Has pleurex catheter left lung. Imaging this admission reveals possible further progression of metastatic disease. -Pancytopenia -Oxygen dependent COPD without any acute exacerbation. -Abdominal distention, rule out urinary retention check bladder scan -Constipation continue with lactulose BID until bowel movement may be contributing to her abdominal discomfort. -Severe protein calorie malnutrition from cancer, Continue on marinol. -Hypomagnesemia, hypokalemia, hypocalcemia Discharge Disposition Patient stable for discharge home with overall guarded prognosis secondary to her metastatic breast cancer with suspicion for disease progression on imaging this admission. She will need to follow-up closely with oncology for restaging and to change her treatment plan. Patient will continue on fentanyl patch as well as an increased dose of Denver for pain management on discharge. Patient is advised to continue on a bowel regimen while taking these narcotics to avoid any other episodes of constipation. Patient will also follow-up with pulmonary services in the office. She has not had any output from this left-sided Pleurx catheter in the last 3 weeks and we were unable to drain it in the hospital as well. She is also s/p thoracentesis and will follow-up in the office for the cytology reports. Blood work in 2 to 3 days. Hospital Course Patient is a 68-year-old female, came in with complaints of shortness of breath and severe chest pain and abdominal pain predominantly on the left side where she has a Pleurx catheter. Patient also bit hyponatremic. Patient is cachectic secondary to cancer. Patient is taking Denver at home for pain patient pain is s evere. Patient's abdominal, liver lesions are worsened compared to previous CT scans patient had a CT scan here which showed moderate to severe right pleural effusion along with mild loculated effusion on the left side and patient has a Pleurx catheter on the left side. Cardiothoracic surgery was consulted, and they evaluated the patient not recommending any Pleurx catheter on the right side but may need a thoracentesis. Patient WBC count is only 0.61 may be receiving chemotherapy. Patient does not have any fever chills nausea vomiting occasionally get constipated because of the pain medications. Patient is mainly admitted for pain management and right-sided pleural effusion and shortness of breath. Patient does have history of COPD does use home oxygen, 2 L and pressure and patient saturating at 97% on 2 L. Pulmonary evaluated the patient and she had a chest ultrasound done showing a moderate to large right-sided pleural effusion and underwent a thoracentesis with 1 L of fluid removed. Cultures were negative for the pleural fluid. Allergy reports are still pending and patient will follow-up with the oncology office for this. She does continue to report left upper quadrant abdominal discomfort was felt to be due to possible disease progression. Patient was having issues with constipation she is not having bowel movements. She is not retaining urine. She is not feeling much short of breath now we did attempt to drain her Pleurx catheter on the left without any output. Her electrolytes have normalized she was hypokalemic hypocalcemic and low magnesium levels. She was given IV and oral supplementation. And her electrolytes have normalized. Patient will like to discharge home and will continue to follow-up closely with oncology. He has added fentanyl patch and an increase in her Denver for improved pain control on discharge. Please see medication reconciliation for a list of current medications. Thank you for allowing us to participate in the care of this patient. The impression and plan of care has been dictated by Cheslea Rhodes, Nurse Practitioner as directed. Dr. Almaz MD I have performed a history and physical examination and medical decision making of this patient, discussed the same with the dictator, and agree with the dictators assessment and plan as written, documented as a scribe. Based on total visit time, I have performed more than 50% of this visit. Patient Condition at Discharge: Fair Plan - Discharge Summary Discharge Rx Participant: No New Discharge Prescriptions: New fentaNYL 25MCG/HR PATCH [Duragesic 25MCG/HR] 1 patch TRANSDERM Q72H patch Famotidine [Pepcid] 20 mg PO BID #60 tab Sennosides-Docusate Sodium [Senokot-S] 1 each PO BID PRN #20 tab PRN Reason: Constipation HYDROcodone/APAP 10-325MG [Denver 10-325] 1 each PO Q4HR 4 Days #16 tab Continue polyethylene glycoL 3350 [Miralax] 17 gm PO BID PRN PRN Reason: Constipation Docusate [Colace] 200 mg PO BID droNABinol [Marinol] 2.5 mg PO AC-BID ALPRAZolam [Xanax] 0.5 mg PO TID PRN PRN Reason: Anxiety OLANZapine [ZyPREXA] 2.5 mg PO HS PRN PRN Reason: Nausea Albuterol Sulfate [Ventolin HFA] 2 puff INHALATION RT-Q6H PRN PRN Reason: Shortness Of Breath Or Wheezing Levothyroxine Sodium [Synthroid] 88 mcg PO DAILY Ondansetron [Zofran] 4 mg PO QID PRN PRN Reason: Nausea Sennosides [Senokot] 1 tab PO BID LORazepam [Ativan] 1 tab PO BID Discontinued HYDROcodone/APAP 10-325MG [Denver 10-325] 1 tab PO Q6HR Discharge Medication List Albuterol Sulfate [Ventolin HFA] 2 puff INHALATION RT-Q6H PRN 01/01/24 [History] Docusate [Colace] 200 mg PO BID 02/24/24 [History] Levothyroxine Sodium [Synthroid] 88 mcg PO DAILY 02/24/24 [History] polyethylene glycoL 3350 [Miralax] 17 gm PO BID PRN 02/24/24 [History] Ondansetron [Zofran] 4 mg PO QID PRN 03/16/24 [History] LORazepam [Ativan] 1 tab PO BID 04/27/24 [History] Sennosides [Senokot] 1 tab PO BID 04/27/24 [History] ALPRAZolam [Xanax] 0.5 mg PO TID PRN 05/08/24 [History] OLANZapine [ZyPREXA] 2.5 mg PO HS PRN 05/08/24 [History] droNABinol [Marinol] 2.5 mg PO AC-BID 05/08/24 [History] Famotidine [Pepcid] 20 mg PO BID #60 tab 05/12/24 [Rx] HYDROcodone/APAP 10-325MG [Denver 10-325] 1 each PO Q4HR 4 Days #16 tab 05/12/24 [Rx] Sennosides-Docusate Sodium [Senokot-S] 1 each PO BID PRN #20 tab 05/12/24 [Rx] fentaNYL 25MCG/HR PATCH [Duragesic 25MCG/HR] 1 patch TRANSDERM Q72H patch 05/12/24 [Rx] Follow up Appointment(s)/Referral(s): Isra Dee [Family Provider] - 05/18/24 3:30 pm [facility], [NON-STAFF] - 1 Week Roney Lema DO [Primary Care Provider] - 1-2 days (The office is closed please call and make follow up appointment.) Matt Vaz MD [STAFF PHYSICIAN] - 05/18/24 9:00 am Ambulatory/Diagnostic Orders: Basic Metabolic Panel [LAB.AMB] Time Frame: 3 Days, Location: None Selected Complete Blood Count w/diff [LAB.AMB] Location: None Selected Magnesium [LAB.AMB] Location: None Selected Patient Instructions/Handouts: Abdominal Pain (GEN) Activity/Diet/Wound Care/Special Instructions: pt has meds in pharmacy with indigent fund form. please get them delivered at time of d/c. PET scan resched for 05/26 at 10 am at [facility] Discharge Disposition: HOME WITH HOME HEALTH SERVICES
== END 2024-05-12 17:40 | disposition home health service (06) | DRG 180 ==
LOC: EC 13:43 → 6NMEDSUR 17:07 → 5NMEDONC 21:47 → OBSVTOIN 05-09 07:05 → 5NMEDONC 05-09 16:11
PROVIDERS: ADMIT Hospitalist; ATTEND Hospitalist
PROC: 0W9930Z Drainage of Right Pleural Cavity with Drainage Device, Percutaneous Approach (ICD-10-PCS; principal; 2024-05-11)
DX: C78.00 Secondary malignant neoplasm of unspecified lung (principal); D61.810 Antineoplastic chemotherapy induced pancytopenia; E43 Unspecified severe protein-calorie malnutrition; J96.11 Chronic respiratory failure with hypoxia; C79.51 Secondary malignant neoplasm of bone; E87.1 Hypo-osmolality and hyponatremia; J91.0 Malignant pleural effusion; Z68.1 Body mass index [BMI] 19.9 or less, adult; C50.412 Malignant neoplasm of upper-outer quadrant of left female breast; J44.9 Chronic obstructive pulmonary disease, unspecified; E88.A Wasting disease (syndrome) due to underlying condition; E83.51 Hypocalcemia; K76.89 Other specified diseases of liver; Z99.81 Dependence on supplemental oxygen; E03.9 Hypothyroidism, unspecified; K59.03 Drug induced constipation; T40.695A Adverse effect of other narcotics, initial encounter; G89.3 Neoplasm related pain (acute) (chronic); E83.42 Hypomagnesemia; T45.1X5A Adverse effect of antineoplastic and immunosuppressive drugs, initial encounter; E87.6 Hypokalemia; F41.9 Anxiety disorder, unspecified; Z79.890 Hormone replacement therapy; Z79.891 Long term (current) use of opiate analgesic; Z17.1 Estrogen receptor negative status [ER-]; Z87.891 Personal history of nicotine dependence; Z86.61 Personal history of infections of the central nervous system; Z90.12 Acquired absence of left breast and nipple; Z80.0 Family history of malignant neoplasm of digestive organs; Z79.899 Other long term (current) drug therapy; Z87.42 Personal history of other diseases of the female genital tract
CPT/HCPCS: 36415; 71045; 71046; 74176; 76604; 80048; 80053; 81003; 82945; 83605; 83615; 83735; 84100; 84132; 84155; 84157; 84439; 84443; 84484; 85025; 85027; 85610; 85730; 86300; 87070; 87102; 87116; 87205; 87206; 88108; 88305; 88341; 88342; 89050; 93005; 94640; 94760; 96361; 96365; 96366; 96375; 96376; 99285

== ENCOUNTER 2024-05-14 22:27 | Inpatient (IN) | payer MEDICARE, OTHER ==
--- NOTE | 2024-05-14 23:24 | ED ---
General Adult HPI - General Chief complaint: Shortness of Breath Stated complaint: SOB Time Seen by Provider: 05/14/24 22:31 Source: patient, EMS Mode of arrival: EMS Limitations: no limitations - History of Present Illness Initial comments: Dictation was produced using [employer] dictation software. please excuse any grammatical, word or spelling errors. 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 Patient was recently admitted to the hospital for pleural effusion. She had a thoracentesis performed. She states that over the last few days she has been feeling anxious. She states that she feels shortness of breath because of it. Denies any fever, chills or night sweats. Patient does follow closely with ecology The ROS documented in this emergency department record has been reviewed and confirmed by me. Those systems with pertinent positive or negative responses have been documented in the HPI. All other systems are other negative and/or noncontributory. - Related Data Home Medications Medication Instructions Recorded Confirmed Albuterol Sulfate [Ventolin HFA] 2 puff INHALATION RT-Q6H PRN 01/01/24 05/08/24 Docusate [Colace] 200 mg PO BID 02/24/24 05/08/24 Levothyroxine Sodium [Synthroid] 88 mcg PO DAILY 02/24/24 05/08/24 polyethylene glycoL 3350 [Miralax] 17 gm PO BID PRN 02/24/24 05/08/24 Ondansetron [Zofran] 4 mg PO QID PRN 03/16/24 05/08/24 LORazepam [Ativan] 1 tab PO BID 04/27/24 05/08/24 Sennosides [Senokot] 1 tab PO BID 04/27/24 05/08/24 ALPRAZolam [Xanax] 0.5 mg PO TID PRN 05/08/24 05/08/24 OLANZapine [ZyPREXA] 2.5 mg PO HS PRN 05/08/24 05/08/24 droNABinol [Marinol] 2.5 mg PO AC-BID 05/08/24 05/08/24 Previous Rx's Medication Instructions Recorded Famotidine [Pepcid] 20 mg PO BID #60 tab 05/12/24 HYDROcodone/APAP 10-325MG [[place] 1 each PO Q4HR 4 Days #16 tab 05/12/24 10-325] Sennosides-Docusate Sodium 1 each PO BID PRN #20 tab 05/12/24 [Senokot-S] fentaNYL 25MCG/HR PATCH [Duragesic 1 patch TRANSDERM Q72H patch 05/12/24 25MCG/HR] Allergies Allergy/AdvReac Type Severity Reaction Status Date / Time No Known Allergies Allergy Verified 05/08/24 15:12 Review of Systems ROS Statement: Those systems with pertinent positive or pertinent negative responses have been documented in the HPI. ROS Other: All systems not noted in ROS Statement are negative. Past Medical History Past Medical History: Cancer, COPD, Eye Disorder Additional Past Medical History / Comment(s): MENINGITIS, 19 YRS OLD ovarian cy st burst., FLOATER RIGHT EYE., LEFT BREAST CANCER - pt had a recent PET scan that showed at spot that they wanted to check out for mets. Recurrent left- sided pleural effusion, R sided pleural effusion. History of Any Multi-Drug Resistant Organisms: None Reported Past Surgical History: Hysterectomy, Tonsillectomy Additional Past Surgical History / Comment(s): HARITHA CATARACTS with lens implants, Mastectomy, March 2023; left-sided Pleurx catheter placed January 14, 2024, Port- a -cath. Past Anesthesia/Blood Transfusion Reactions: No Reported Reaction Additional Past Anesthesia/Blood Transfusion Reaction / Comment(s): HX OF BLOOD TRANSFUSION-NO REACTION Past Psychological History: Anxiety Smoking Status: Former smoker Past Alcohol Use History: None Reported Past Drug Use History: None Reported - Past Family History Father History Unknown: Yes Family Medical History: Cancer Additional Family Medical History / Comment(s): PANCREATIC CANCER Brother(s) History Unknown: Yes Family Medical History: Cancer, Thyroid Disorder Additional Family Medical History / Comment(s): STOMACH CANCER General Exam - General Exam Comments Initial Comments: PHYSICAL EXAM: General Impression: Alert and oriented x3, not in acute distress HEENT: Normocephalic atraumatic, extra-ocular movements intact, pupils equal and reactive to light bilaterally, mucous membranes moist. Cardiovascular: Heart regular rate and rhythm Chest: Able to complete full sentences, no retractions, no tachypnea, surgical site left mastectomy site is clean dry and intact, she has indwelling left Pleurx catheter Abdomen: abdomen soft, non-tender, non-distended, no organomegaly Musculoskeletal: Pulses present and equal in all extremities, no peripheral ed carson Motor: no focal deficits noted Neurological: CN II-XII grossly intact, no focal motor or sensory deficits noted Skin: Intact with no visualized rashes Psych: Normal affect and mood Limitations: no limitations Course Vital Signs 05/14/24 05/14/24 05/15/24 22:31 23:00 00:00 Temperature 98.4 F Pulse Rate 84 82 90 Respiratory 16 28 H 26 H Rate Blood Pressure 127/90 127/90 116/81 O2 Sat by Pulse 99 97 98 Oximetry 05/15/24 05/15/24 05/15/24 01:00 01:03 01:11 Temperature Pulse Rate 92 86 88 Respiratory 24 Rate Blood Pressure 120/75 O2 Sat by Pulse 98 Oximetry EKG Findings - EKG Comments: EKG Findings:: My EKG interpretation: Ventricular rate 77, sinus rhythm,. 120, cures 89, QTc 390. No CO prolongation, no QTC prolongation, no ST or T-wave changes noted. Overall, this EKG is unremarkable Medical Decision Making - Medical Decision Making Was pt. sent in by a medical professional or institution (GISELA Edward, LDR RN, urgent care, hospital, or skilled nursing...) When possible be specific @ -No Did you speak to anyone other than the patient for history (EMS, parent, family, police, friend...)? What history was obtained from this source @ -Some history obtained at the bedside by son as described above Did you review nursing and triage notes (agree or disagree)? Why? @ -I reviewed and agree with nursing and triage notes Were old charts reviewed (outside hosp., previous admission, EMS record, old EKG, old radiological studies, urgent care reports/EKG's, skilled nursing records)? Report findings @ -No old charts were reviewed Differential Diagnosis (chest pain, altered mental status, abdominal pain women, abdominal pain men, vaginal bleeding, musculoskeletal, weakness, fever, dyspnea, syncope, headache, dizziness, GI bleed, back pain, seizure, CVA, palpatations, mental health)? @ -Differential Dyspnea: Coronary syndrome, arrhythmia, tamponade, asthma, COPD, pulmonary embolism, pneumonia, pneumothorax, pulmonary effusion, anaphylaxis, diabetic ketoacidosis, flailed chest, pulmonary contusion, diaphragmatic rupture, anemia, n euromuscular, this is not meant to be an all-inclusive list. EKG interpreted by me (3pts min.). @ -None done X-rays interpreted by me (1pt min.). @ -Chest x-ray shows small bilateral pleural effusion CT interpreted by me (1pt min.). @ -None done U/S interpreted by me (1pt. min.). @ -None done What testing was considered but not performed or refused? (CT, X-rays, U/S, labs)? Why? @ -None What meds were considered but not given or refused? Why? @ -None Was smoking cessation discussed for >3mins.? @ -No Were there social determinants of health that impacted care today? How? (Homelessness, low income, unemployed, alcoholism, drug addiction, transportation, low edu. Level, literacy, decrease access to med. care, [facility], rehab)? @ -No Was there de-escalation of care discussed even if they declined (Discuss DNR or withdrawal of care, Hospice)? DNR status @ -No What co-morbidities impacted this encounter? (DM, HTN, Smoking, COPD, CAD, Cancer, CVA, ARF, Chemo, Hep., AIDS, mental health diagnosis, sleep apnea, morbid obesity)? @ -Chronic pleural effusions Was patient admitted / discharged? Hospital course, mention meds given and route, prescriptions, significant lab abnormalities, going to OR and other pertinent info. @ -68-year-old female with history of progressed rest cancer presents to the ER for shortness of breath and reported symptoms of anxiety. Vital signs upon arrival showed tachypnea of 28. She wears home oxygen. Patient given anxiolytic medication with improvement of her tachypnea. She also complaining of pain. Patient given IV analgesics. Laboratory evaluation obtained. Labs appear to be within patient's baseline. X-rays at patient's baseline. Patient reevaluated bedside and comfortably. Patient given disposition options. She did not feel comfortable being discharged at 2:00 in the morning and requested that she be admitted observation for the time being. Did you discuss the management of the patient with other professionals (professionals i.e. Dr., PA, LDR RN, lab, RT, psych nurse, transition social worker, medicare insurance specialist, teacher, commercial account officer, vocational case manager)? Give summary @ -Case discussed with hospitalist for admission Was critical care preformed (if so, how long)? @ -No Undiagnosed new problem with uncertain prognosis? @ -No Drug Therapy requiring intensive monitoring for toxicity (Heparin, Nitro, Insulin, Cardizem)? @ -No Were any procedures done? @ -No Diagnosis/symptom? Acute, or Chronic, or Acute on Chronic? Uncomplicated (without systemic symptoms) or Complicated (systemic symptoms)? @ -Dyspnea Side effects of treatment? @ -No Exacerbation, Progression, or Severe Exacerbation? @ -No Poses a threat to life or bodily function? How? (Chest pain, [place], [place], pneumonia, PE, COPD, DKA, ARF, appy, cholecystitis, CVA, Diverticulitis, Homicidal, Suicidal, threat to staff... and all critical care pts) @ -No - Lab Data Result diagrams: 05/14/24 22:43 05/14/24 22:43 Lab Results 05/14/24 05/14/24 05/14/24 Range/Units 22:43 22:43 22:43 WBC 1.5 L (3.8-10.6) k/uL RBC 4.20 (3.80-5.40) m/uL Hgb 13.3 (11.4-16.0) gm/dL Hct 40.6 (34.0-46.0) % MCV 96.6 (80.0-100.0) fL MCH 31.6 (25.0-35.0) pg MCHC 32.7 (31.0-37.0) g/dL RDW 15.4 (11.5-15.5) % Plt Count 100 L (150-450) k/uL MPV 9.0 Neutrophils % (Manual) 40 % Lymphocytes % (Manual) 43 % Monocytes % (Manual) 17 % Neutrophils # (Manual) 0.60 L (1.3-7.7) k/uL Lymphocytes # (Manual) 0.65 L (1.0-4.8) k/uL Monocytes # (Manual) 0.26 (0-1.0) k/uL Nucleated RBCs 0 (0-0) /100 WBC Manual Slide Review Performed RBC Morphology R PT 10.6 (10.0-12.5) sec INR 1.0 (<1.2) APTT 19.5 L (22.0-30.0) sec Sodium 131 L (137-145) mmol/L Potassium 4.1 (3.5-5.1) mmol/L Chloride 101 (98-107) mmol/L Carbon Dioxide 24 (22-30) mmol/L Anion Gap 6 mmol/L BUN 8 (7-17) mg/dL Creatinine 0.29 L (0.52-1.04) mg/dL Est GFR (CKD-EPI)AfAm >90 (>60 ml/min/1.73 sqM) Est GFR (CKD-EPI)NonAf >90 (>60 ml/min/1.73 sqM) Glucose 87 (74-99) mg/dL Calcium 8.8 (8.4-10.2) mg/dL Total Bilirubin 0.5 (0.2-1.3) mg/dL AST 47 H (14-36) U/L ALT 24 (4-34) U/L Alkaline Phosphatase 122 (38-126) U/L NT-Pro-B Natriuret Pep 111 pg/mL Total Protein 5.5 L (6.3-8.2) g/dL Albumin 3.3 L (3.5-5.0) g/dL Disposition Clinical Impression: Dyspnea Disposition: ADMITTED IP TO THIS HOSP Condition: Fair Referrals: Roney Lema DO [Primary Care Provider] - 1-2 days Decision Time: 02:20
[2024-05-14] MEDS: ALPRAZolam 0.25 MG TAB PO STA (23:25)
[2024-05-14] MEDS: LORazepam 2 MG/ML INJ IV STA (23:35)
[2024-05-14 23:50] LABS: ALT 24 U/L (4-34); African American GFR (CKD) >90 (>60 ml/min/1.73 sqM); Albumin 3.3 g/dL (3.5-5.0); Anion Gap 6 mmol/L; Blood Urea Nitrogen 8 mg/dL (7-17); Calcium 8.8 mg/dL (8.4-10.2); Carbon Dioxide 24 mmol/L (22-30); Chloride 101 mmol/L (98-107); Glucose 87 mg/dL (74-99); Non-African American GFR(CKD) >90 (>60 ml/min/1.73 sqM); Sodium 131 mmol/L (137-145); Total Bilirubin 0.5 mg/dL (0.2-1.3); Total Protein 5.5 g/dL (6.3-8.2)
[2024-05-14 23:54] LABS: HCT 40.6 % (34.0-46.0); HGB 13.3 gm/dL (11.4-16.0); MCH 31.6 pg (25.0-35.0); MCHC 32.7 g/dL (31.0-37.0); MCV 96.6 fL (80.0-100.0); Platelet Count 100 k/uL (150-450); RDW 15.4 % (11.5-15.5); WBC 1.5 k/uL (3.8-10.6)
[2024-05-15] LABS: NT-Pro-B-Type Natriuretic Pept 111 pg/mL; Prothrombin Time 10.6 sec (10.0-12.5)
[2024-05-15 00:01] LABS: AST 47 U/L (14-36); Potassium 4.1 mmol/L (3.5-5.1)
[2024-05-15 00:02] LABS: Alkaline Phosphatase 122 U/L (38-126); Partial Thromboplastin Time 19.5 sec (22.0-30.0)
[2024-05-15 00:19] LABS: Lymphocytes # (M) 0.65 k/uL (1.0-4.8); Monocytes # (M) 0.26 k/uL (0-1.0); Neutrophils % (M) 40 %; Nucleated Red Blood Cells 0 /100 WBC (0-0); RBC Morphology R; Total Cells Counted 100
[2024-05-15] MEDS: HYDROmorphone 1 MG/ML 1 ML SYRINGE IVP STA (00:58)
[2024-05-15] MEDS: IPRATROPIUM-ALBUTEROL 3 ML NEB INHALATION STA (01:00)
--- NOTE | 2024-05-15 01:30 | XR ---
EXAM: XR Chest, 2 Views CLINICAL HISTORY: ITS.REASON XR Reason: dyspnea TECHNIQUE: Frontal and lateral views of the chest. COMPARISON: No relevant prior studies available. FINDINGS: Lungs: See below. Pleural space: Small bilateral pleural effusions. Pulmonary vascular congestion. Correlate for congestive heart failure. No pneumothorax. Heart: Unremarkable. No cardiomegaly. Mediastinum: Unremarkable. Normal mediastinal contour. Bones/joints: Unremarkable. No acute fracture. Tubes, lines and devices: RIGHT Port-A-Cath terminates in the SVC. IMPRESSION: Small bilateral pleural effusions. Pulmonary vascular congestion. Correlate for congestive heart failure.
[2024-05-15] MEDS ORDERED: NALOXONE 0.4 MG/ML 1 ML VIAL IV PRN (02:14)
[2024-05-15] MEDS ORDERED: OLANZapine 2.5 MG TAB PO PRN (08:06)
[2024-05-15] MEDS ORDERED: ALBUTEROL HFA INHALER INHALATION PRN (08:06)
[2024-05-15] MEDS: DOCUSATE 100 MG CAP PO SCH (08:35)
[2024-05-15] MEDS: droNABinol 2.5 MG CAP PO SCH (08:35)
[2024-05-15] MEDS: FAMOTIDINE 20 MG TAB PO SCH (08:35)
[2024-05-15] MEDS: LEVOTHYROXINE 88 MCG TAB PO SCH (08:36)
[2024-05-15] MEDS: ALPRAZolam 0.5 MG TAB PO PRN (08:36)
[2024-05-15] MEDS: FUROSEMIDE 10 MG/ML 2 ML VIAL IV SCH (08:36)
[2024-05-15] MEDS: HEPARIN SODIUM,PORCINE 5,000 UNIT/ML 1 ML VIAL SQ SCH (08:36)
[2024-05-15] MEDS: HYDROcodone/APAP 10-325MG 1 EACH TAB PO PRN (08:40)
[2024-05-15] MEDS ORDERED: IPRATROPIUM-ALBUTEROL 3 ML NEB INHALATION PRN (10:16)
--- NOTE | 2024-05-15 12:06 | P.CNPUL ---
History of Present Illness Consult date: 05/15/24 Requesting physician: Katherine Hernandez Reason for consult: dyspnea Chief complaint: Anxiety History of present illness: The patient is a 68-year-old female with past medical history significant for me tastatic breast cancer. She follows with her oncologist Dr. Dee. She has had recurrent bilateral pleural effusions. She did have a left-sided Pleurx catheter inserted by cardiothoracic surgery on 01/14/2024. 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 Back in January, she did have a recurrent moderate to large sized right-sided pleural effusion, and did undergo thoracentesis. She was recently admitted here in May 08, 2024 for right-sided chest discomfort other right-sided thoracentesis on 05/11/2024 with another 1 L of fluid removed. Cytology is pending. He was discharged home on 05/12/2024. Pain control has been her main issue. She was in the ER again last night with complaints of anxiety and felt as though she was having a panic attack. She felt as though she was having a reaction to the [place] which she is taking every 4 hours in addition to a fentanyl patch. Chest x-ray reveals only small bilateral pleural effusions. Left-sided Pleurx catheter in place. Right subclavian Port-A-Cath in place. She is seen today in consultation on the [facility] medical floor. She is currently sitting up in bed. Awake and alert in no acute distress. She is maintaining O2 saturations in the 90s on 4 L/min per nasal cannula. She remains quite frail and cachectic. Her appetite is poor. White count 1.5. Hemoglobin 13.3. Platelets 100,000. Sodium 131. Potassium 4.1. Bicarb 24. BUN 8. Creatinine 0.29. AST 47. ALT 24. Albumin 3.3. Total protein 5.5. She is continued on needed for her anxiety. She remains on bronchodilators. Fentanyl patch in place. Remains on IV diuretics. Heparin for DVT prophylaxis. Continued on Marinol. Review of Systems REVIEW OF SYSTEMS: CONSTITUTIONAL: Admits weight loss, poor appetite. Denies fevers EYES: Denies change in vision. EARS, NOSE, MOUTH, THROAT: Denies headaches, denies sore throat. CARDIOVASCULAR: Denies chest pain, palpitations or syncopal episodes. RESPIRATORY: See HPI GASTROINTESTINAL: Denies change in appetite, abdominal pain, nausea and vomiting, or diarrhea GENITOURINARY: Denies hematuria, denies infections. MUSKULOSKELETAL: Denies pain, denies swelling. INTEGUMENTARY: Denies rash, denies eczema. NEUROLOGICAL: Denies recent memory loss, no recent seizure activity. PSYCHIATRIC: Positive for anxiety, denies depression. HEMATOLOGIC/LYMPHATIC: Denies anemia, denies enlarged lymph node Past Medical History Past Medical History: Cancer, COPD, Eye Disorder Additional Past Medical History / Comment(s): MENINGITIS, 19 YRS OLD ovarian cyst burst., FLOATER RIGHT EYE., LEFT BREAST CANCER with mets to lung Recurrent left-sided pleural effusion, R sided pleural effusion. History of Any Multi-Drug Resistant Organisms: None Reported Past Surgical History: Hysterectomy, Tonsillectomy Additional Past Surgical History / Comment(s): HARITHA CATARACTS with lens implants, Mastectomy, March 2023; left-sided Pleurx catheter placed January 14, 2024, Port- a -cath. Past Anesthesia/Blood Transfusion Reactions: No Reported Reaction Additional Past Anesthesia/Blood Transfusion Reaction / Comment(s): HX OF BLOOD TRANSFUSION-NO REACTION Past Psychological History: Anxiety Smoking Status: Former smoker Past Alcohol Use History: None Reported Additional Past Alcohol Use History / Comment(s): Stopped smoking November Past Drug Use History: None Reported - Past Family History Father History Unknown: Yes Family Medical History: Cancer Additional Family Medical History / Comment(s): PANCREATIC CANCER Brother(s) History Unknown: Yes Family Medical History: Cancer, Thyroid Disorder Additional Family Medical History / Comment(s): STOMACH CANCER Medications and Allergies Home Medications Medication Instructions Recorded Confirmed Type Albuterol Sulfate [Ventolin HFA] 2 puff INHALATION RT-Q6H PRN 01/01/24 05/15/24 History Docusate [Colace] 200 mg PO BID 02/24/24 05/15/24 History Levothyroxine Sodium [Synthroid] 88 mcg PO DAILY 02/24/24 05/15/24 History polyethylene glycoL 3350 [Miralax] 17 gm PO BID PRN 02/24/24 05/15/24 History Ondansetron [Zofran] 4 mg PO QID PRN 03/16/24 05/15/24 History LORazepam [Ativan] 1 tab PO BID 04/27/24 05/15/24 History ALPRAZolam [Xanax] 0.5 mg PO TID PRN 05/08/24 05/15/24 History OLANZapine [ZyPREXA] 2.5 mg PO HS PRN 05/08/24 05/15/24 History droNABinol [Marinol] 2.5 mg PO AC-BID 05/08/24 05/15/24 History Famotidine [Pepcid] 20 mg PO BID #60 tab 05/12/24 05/15/24 Rx fentaNYL 25MCG/HR PATCH [Duragesic 1 patch TRANSDERM Q72H patch 05/12/24 05/15/24 Rx 25MCG/HR] HYDROcodone/APAP 10-325MG [[place] 1 tab PO Q4HR PRN 05/15/24 05/15/24 History 10-325] Sennosides-Docusate Sodium 1 tab PO BID 05/15/24 05/15/24 History [Senokot-S] Allergies Allergy/AdvReac Type Severity Reaction Status Date / Time No Known Allergies Allergy Verified 05/15/24 10:09 Physical Exam Vitals: Vital Signs Temp Pulse Pulse Resp BP BP Pulse Ox 05/15/24 08:25 99 05/15/24 07:25 98.6 F 87 17 115/74 96 05/15/24 03:10 98.1 F 95 18 116/77 99 05/15/24 03:00 89 13 110/67 99 05/15/24 02:00 91 18 118/74 98 05/15/24 01:11 88 05/15/24 01:03 86 05/15/24 01:00 92 24 120/75 98 05/15/24 00:00 90 26 H 116/81 98 05/14/24 23:10 26 H 05/14/24 23:00 82 28 H 127/90 97 05/14/24 22:31 98.4 F 84 16 127/90 99 Intake and Output 05/14/24 05/15/24 05/15/24 22:59 06:59 14:59 Other: # Voids 1 Weight 35.38 kg 35.38 kg GENERAL EXAM: Alert, 68-year-old cachectic female, on 4 L/min nasal cannula, fairly comfortable in no apparent distress. HEAD: Normocephalic and atraumatic EYES: Normal reaction of pupils, equal size. NOSE: Clear with pink turbinates. THROAT: No erythema or exudates. NECK: No masses, no JVD. CHEST: No chest wall deformity. Right chest Mediport. Left Pleurx catheter insertion site clean, dry, without erythema or drainage LUNGS: Equal air entry with diminished right lung sounds, minimal inspiratory crackles in the left base. CVS: S1 and S2 normal with no audible murmur, regular rhythm. No extra heart sounds ABDOMEN: No hepatosplenomegaly, active bowel sounds, no guarding or rigidity. SPINE: No scoliosis or deformity SKIN: No rashes CENTRAL NERVOUS SYSTEM: No focal deficits, tone is normal in all 4 extremities. EXTREMITIES: There is no peripheral edema, clubbing, or cyanosis. Peripheral pulses are intact. Results - Laboratory Findings CBC and BMP: 05/14/24 22:43 05/14/24 22:43 PT/INR, D-dimer PT 10.6 sec (10.0-12.5) 05/14/24 22:43 INR 1.0 (<1.2) 05/14/24 22:43 Abnormal lab findings: Abnormal Labs 05/14/24 05/14/24 05/14/24 22:43 22:43 22:43 WBC 1.5 L Plt Count 100 L Neutrophils # (Manual) 0.60 L Lymphocytes # (Manual) 0.65 L APTT 19.5 L Sodium 131 L Creatinine 0.29 L AST 47 H Total Protein 5.5 L Albumin 3.3 L - Diagnostic Findings Chest x-ray: image reviewed Assessment and Plan Assessment: Anxiety and panic feelings related to her [place] and fentanyl pain medication schedule Recent admission for shortness of breath and pain control discharged on 05/12/2024 Metastatic breast cancer, most recent PET scan performed on 12/03/2023 identified new foci of uptake within the mediastinum and hilar lymph nodes, as well as new foci within the liver, osseous lesions including thoracic vertebral bodies and right ilium and left anterior rib and, as well as persistent uptake in the distal sigmoid colon, these findings are suspicious for disease progression and metastasis. Patient has reportedly started on chemotherapy, which is being directed by her oncologist. Pancytopenia, secondary to systemic chemotherapy treatments Recurrent moderate to large right-sided pleural effusion, most recent right- sided thoracentesis done 05/11/2024, and a total of 1 L of fluid was removed. Cytology pending. Previous right-sided thoracentesis performed on 02/24/2024. History of malignant left-sided pleural effusion, requiring frequent previous thoracentesis, and eventual Pleurx catheter insertion on 01/14/2024. Patient has been previously draining her catheter weekly, however, over the last 2 weeks no output was noted. Acute on chronic dyspnea, secondary to above History of left-sided mastectomy Severe chronic obstructive pulmonary disease, most recent FEV1 47% of predicted, stable Chronic hypoxemic respiratory failure, maintained on 1-2 L/min nasal cannula while at home Former tobacco smoker, quitting approximately 2 months ago Hypothyroidism History of meningitis History of ovarian cyst Severe protein calorie malnutrition Plan: The patient was seen and evaluated Chest x-ray, labs and medications reviewed Small bilateral effusions No plans for thoracentesis Titrate down the FiO2 as tolerated Assure adequate anxiolytics Assure adequate pain control Prognosis remains guarded We will continue to follow and make further recommendations based on her clinical status I have personally seen and examined the patient, performed the documentation and the assessment and plan as written. Number of minutes spent on the visit: 20.
[2024-05-15] MEDS: IPRATROPIUM-ALBUTEROL 3 ML NEB INHALATION SCH (12:08)
[2024-05-15] MEDS: LORazepam 1 MG TAB PO PRN (13:41)
--- NOTE | 2024-05-15 16:47 | P.HPIM ---
History of Present Illness H&P Date: 05/15/24 This is a pleasant 68-year-old female with history of metastatic triple negative breast cancer with liver lung and bone metastasis. Patient does have a Pleurx catheter in place to the left chest wall for a reoccurring pleural effusion however she has had no drainage over the last 3 weeks from this. Patient was just admitted and discharged from the hospital 2 days ago for shortness of breath found to have a moderate-sized pleural effusion on the right side and underwent thoracentesis with 1 L of fluid drained. Patient was monitored and her oxygenation and saturations had improved. Patient was discharged home and recommended to follow-up closely with her oncologist for a PET scan and restag ing of her breast cancer. Imaging that hospital stay also reveals disease progression and patient will need to be reevaluated by oncology for a treatment change. Patient returns to the hospital after 2 days states that she feels significantly anxious and short of breath. Her chest x-ray shows small bilateral pleural effusions, sodium level of 131. She is not having any chest pain, not having any fever or chills. No nausea vomiting or diarrhea. She has had poor oral intake. We will check a proBNP and patient may benefit from IV Lasix. She will continue on fentanyl patch as well as increased dose of [place] tens every 4 hours for pain management. REVIEW OF SYSTEMS: CONSTITUTIONAL: No fever, no malaise, no fatigue. HEENT: No recent visual problems or hearing problems. Denied any sore throat. CARDIOVASCULAR: No chest pain, orthopnea, PND, no palpitations, no syncope. PULMONARY: Reports shortness of breath, no cough, no hemoptysis. GASTROINTESTINAL: No diarrhea, no nausea, no vomiting, no abdominal pain. NEUROLOGICAL: No headaches, no weakness, no numbness. HEMATOLOGICAL: Denies any bleeding or petechiae. GENITOURINARY: Denies any burning micturition, frequency, or urgency. MUSCULOSKELETAL/RHEUMATOLOGICAL: Denies any joint pain, swelling, or any muscle pain. ENDOCRINE: Denies any polyuria or polydipsia. The rest of the 14-point review of systems is negative. PHYSICAL EXAMINATION: GENERAL: The patient is alert and oriented x3, not in any acute distress. Well developed, well nourished. HEENT: Pupils are round and equally reacting to light. EOMI. No scleral icterus. No conjunctival pallor. Normocephalic, atraumatic. No pharyngeal erythema. No thyromegaly. CARDIOVASCULAR: S1 and S2 present. No murmurs, rubs, or gallops. PULMONARY: Chest is clear to auscultation, no wheezing or crackles. ABDOMEN: Soft, nontender, nondistended, normoactive bowel sounds. No palpable organomegaly. MUSCULOSKELETAL: No joint swelling or deformity. EXTREMITIES: No cyanosis, clubbing, or pedal edema. NEUROLOGICAL: Gross neurological examination did not reveal any focal deficits. SKIN: No rashes. Assessment and Plan -Shortness of breath may be secondary to pleural effusion. -Hyponatremia -Abdominal pain and chest pain secondary to metastic disease patient blood pre ssure is borderline. 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 Has pleurex catheter left lung. -Neutropenia improving from prior admission -Oxygen dependent COPD without any acute exacerbation. -Severe protein calorie malnutrition from cancer, Continue on marinol. GI prophylaxis DVT prophylaxis Full Code Plan -Pulmonary on consult patient is status post thoracentesis on the right side previous admission, was sent for cytology. One does of IV lasix will be given, check a BNP -Patient will be continued on [place] and fentanyl patch along with the bowel regimen. -Oncology consultation PT/OT consultation Repeat blood work in the AM Resume appropriate home medications The impression and plan of care has been dictated by Chelsea Rhodes Nurse Practitioner as directed. Dr. Almaz MD I have performed a history and physical examination and medical decision making of this patient, discussed the same with the dictator, and agree with the dictators assessment and plan as written, documented as a scribe. Based on total visit time, I have performed more than 50% of this visit. Past Medical History Past Medical History: Cancer, COPD, Eye Disorder Additional Past Medical History / Comment(s): MENINGITIS, 19 YRS OLD ovarian cyst burst., FLOATER RIGHT EYE., LEFT BREAST CANCER with mets to lung Recurrent left-sided pleural effusion, R sided pleural effusion. History of Any Multi-Drug Resistant Organisms: None Reported Past Surgical History: Hysterectomy, Tonsillectomy Additional Past Surgical History / Comment(s): HARITHA CATARACTS with lens implants, Mastectomy, March 2023; left-sided Pleurx catheter placed January 14, 2024, Port- a -cath. Past Anesthesia/Blood Transfusion Reactions: No Reported Reaction Additional Past Anesthesia/Blood Transfusion Reaction / Comment(s): HX OF BLOOD TRANSFUSION-NO REACTION Past Psychological History: Anxiety Smoking Status: Former smoker Past Alcohol Use History: None Reported Additional Past Alcohol Use History / Comment(s): Stopped smoking November Past Drug Use History: None Reported - Past Family History Father History Unknown: Yes Family Medical History: Cancer Additional Family Medical History / Comment(s): PANCREATIC CANCER Brother(s) History Unknown: Yes Family Medical History: Cancer, Thyroid Disorder Additional Family Medical History / Comment(s): STOMACH CANCER Medications and Allergies Home Medications Medication Instructions Recorded Confirmed Type Albuterol Sulfate [Ventolin HFA] 2 puff INHALATION RT-Q6H PRN 01/01/24 05/15/24 History Docusate [Colace] 200 mg PO BID 02/24/24 05/15/24 History Levothyroxine Sodium [Synthroid] 88 mcg PO DAILY 02/24/24 05/15/24 History polyethylene glycoL 3350 [Miralax] 17 gm PO BID PRN 02/24/24 05/15/24 History Ondansetron [Zofran] 4 mg PO QID PRN 03/16/24 05/15/24 History LORazepam [Ativan] 1 tab PO BID 04/27/24 05/15/24 History ALPRAZolam [Xanax] 0.5 mg PO TID PRN 05/08/24 05/15/24 History OLANZapine [ZyPREXA] 2.5 mg PO HS PRN 05/08/24 05/15/24 History droNABinol [Marinol] 2.5 mg PO AC-BID 05/08/24 05/15/24 History Famotidine [Pepcid] 20 mg PO BID #60 tab 05/12/24 05/15/24 Rx fentaNYL 25MCG/HR PATCH [Duragesic 1 patch TRANSDERM Q72H patch 05/12/24 05/15/24 Rx 25MCG/HR] HYDROcodone/APAP 10-325MG [[place] 1 tab PO Q4HR PRN 05/15/24 05/15/24 History 10-325] Sennosides-Docusate Sodium 1 tab PO BID 05/15/24 05/15/24 History [Senokot-S] Allergies Allergy/AdvReac Type Severity Reaction Status Date / Time No Known Allergies Allergy Verified 05/15/24 10:09 Physical Exam Vitals: Vital Signs Temp Pulse Pulse Resp BP BP Pulse Ox 05/15/24 08:25 99 05/15/24 03:10 98.1 F 95 18 116/77 99 05/15/24 03:00 89 13 110/67 99 05/15/24 02:00 91 18 118/74 98 05/15/24 01:11 88 05/15/24 01:03 86 05/15/24 01:00 92 24 120/75 98 05/15/24 00:00 90 26 H 116/81 98 05/14/24 23:10 26 H 05/14/24 23:00 82 28 H 127/90 97 05/14/24 22:31 98.4 F 84 16 127/90 99 Intake and Output 05/14/24 05/15/24 05/15/24 22:59 06:59 14:59 Other: # Voids 1 Weight 35.38 kg 35.38 kg Results CBC & Chem 7: 05/14/24 22:43 05/14/24 22:43 Labs: Abnormal Lab Results - Last 24 Hours (Table) 05/14/24 05/14/24 05/14/24 Range/Units 22:43 22:43 22:43 WBC 1.5 L (3.8-10.6) k/uL Plt Count 100 L (150-450) k/uL Neutrophils # (Manual) 0.60 L (1.3-7.7) k/uL Lymphocytes # (Manual) 0.65 L (1.0-4.8) k/uL APTT 19.5 L (22.0-30.0) sec Sodium 131 L (137-145) mmol/L Creatinine 0.29 L (0.52-1.04) mg/dL AST 47 H (14-36) U/L Total Protein 5.5 L (6.3-8.2) g/dL Albumin 3.3 L (3.5-5.0) g/dL Thrombosis Risk Factor Assmnt - Choose All That Apply Any of the Below Risk Factors Present?: Yes Each Factor Represents 1 point: Abnormal pulmonary function (COPD) Each Risk Factor Represents 2 Points: Age 61-74 years Thrombosis Risk Factor Assessment Total Risk Factor Score: 3 Thrombosis Risk Factor Assessment Level: Moderate Risk Assessment and Plan Time with Patient: Less than 30
--- NOTE | 2024-05-15 23:31 | P.CONS ---
History of Present Illness - Reason for Consult Consult date: 05/15/24 breast cancer Requesting physician: Chelsea Rhodes - Chief Complaint SOB - History of Present Illness Ms. Canchola is a 68-year-old female patient of Dr. Dee with a history of metastatic breast cancer. She presented in 2021 with pain in the left breast, mass palpated at the central portion, mammogram 06/12/2022 showed a large irregular, bilobed mass measuring 3.8 cm in the upper outer quadrant. US showed 4.1 x 2.3 x 1.3 cm elongated irregular mass. There was also an abnormally thickened lymph node measuring 9 mm. At 4:00 there was another irregular lesion measuring 1 x 0.7 cm, posteriorly to that lesion measuring 1.8 x 0.9 cm and at 11:00 there was a 0.9 x 0.7 cm lesion. Biopsy 06/26/2022, 1:00 and 4:00 mass showed IDC, grade 2, left axillary tail biopsy showing lymphoid tissue involved with grade 2 ductal carcinoma. All 3 specimen tumor morphology similar appearance, triple negative. Staging PET scan showed uptake in the breast lesions and left axilla, possible uptake in left retropectoral nodes, no distant metastatic disease. She had neoadjuvant carbo/Taxol/Keytruda completing 4 cycles 10/29/2022. She then completed 4 cycles of Adriamycin/Cytoxan plus Keytruda with a 1 week delay. 4 cycles completed 02/02/2023. She continued on Keytruda until surgical resection was planned. Surgery was performed 03/16/2023, LMRM with lymph node dissection. Final path showed multifocal invasive residual ductal carcinoma with negative margins. 10 out of 14 lymph nodes were involved, largest focus of residual cancer was 4.5 cm. Because of significant residual disease adjuvant treatment drugs were changed. Patient did have NGS with no targetable mutations. Breast next testing showed no targetable germline mutations. She was started on Xeloda plus Keytruda. Patient required dose reduction and holding of Xeloda because of significant mucositis and PPE. She also ended up with a rash so, Keytruda was discontinued. She was referred to adjuvant radiation to avoid any delays in treatment. She had a reddish rash involving the incision of the left chest wall, biopsy 11/18/2023 unfortunately showed recurrent grade 3, triple negative breast cancer. Staging PET 12/05/2023 revealed involvement in the mediastinal lymph nodes, a liver lesion as well and as bone involvement of the T-spine, right ilium and left ribs, large pleural effusion noted. She did have a left sided thoracentesis with cytology positive for malignancy. She has required additional thoracentesis, therefore left pleurx drain was placed. She has had multiple hospital admissions since, and was discharged on 05/12/24, after having right thoracentesis with 1/1 L removed, cytology still pending. She has continued on treatment with eribulin, and completed cycle 5 on 05/04/24. Back in patient had positive tumor marker response, overall stable imaging. CT AP during last admission reported suboptimal evaluation due to lack of IV the contrast. Large hypodense abnormalities seen in the anterior left lobe of the liver increased since prior comparison, no dimensions documented. Patient has known metastatic disease in the liver, known lymphadenopathy, known bony metastatic disease though, this was previously relatively limited. She did have slight increase in her tumor markers on recheck at that time so, plan was to cont treatment and recheck scans. PET CT was missed due to last hospitalization and was rescheduled for 05/26/24. Ca 15.3 in March was 199, now 605, Ca 27.29 in march was 303, now 743. Due to increase in tumor markers, along with reported worsening of known disease on CT AP, this is most consistent with disease progression. She will require a change in treatment. Plan is to get restaging done with PET then f/u with Dr. Dee to discuss other treatment options and goals of care. Patient represented to the emergency room with worsening shortness of breath over the last day. Patient is also reporting significant anxiety due to her shortness of breath and cancer diagnosis. Upon presentation chest x-ray revealed small bilateral pleural effusions. Pulmonary vascular congestion. Patient was given IV Lasix. Pulmonary consulted and bronchodilators ordered. Patient is afebrile, 99% on 4 L nasal cannula. CBC showed WBC 1.5, ANC 600, hemoglobin 13.3, platelets 100,000. BNP 111. Creatinine 0.29, GFR greater than 90. At today's visit patient is reporting no significant changes in breathing since admission, but does report she feels that the breathing treatments do help. She states Xanax are not helping manage her anxiety. She is tearful at today's visit. Reports pain is being better controlled on current regimen, rates pain 4 out of 10 along the left lateral chest wall. Review of Systems 10 point ROS is negative except as stated in the HPI Past Medical History Past Medical History: Cancer, COPD, Eye Disorder Additional Past Medical History / Comment(s): MENINGITIS, 19 YRS OLD ovarian cyst burst., FLOATER RIGHT EYE., LEFT BREAST CANCER with mets to lung Recurrent left-sided pleural effusion, R sided pleural effusion. History of Any Multi-Drug Resistant Organisms: None Reported Past Surgical History: Hysterectomy, Tonsillectomy Additional Past Surgical History / Comment(s): HARITHA CATARACTS with lens implants, Mastectomy, March 2023; left-sided Pleurx catheter placed January 14, 2024, Port- a -cath. Past Anesthesia/Blood Transfusion Reactions: No Reported Reaction Additional Past Anesthesia/Blood Transfusion Reaction / Comm: HX OF BLOOD TRANSFUSION-NO REACTION Past Psychological History: Anxiety Smoking Status: Former smoker Past Alcohol Use History: None Reported Additional Past Alcohol Use History / Comment(s): Stopped smoking November Past Drug Use History: None Reported - Past Family History Father History Unknown: Yes Family Medical History: Cancer Additional Family Medical History / Comment(s): PANCREATIC CANCER Brother(s) History Unknown: Yes Family Medical History: Cancer, Thyroid Disorder Additional Family Medical History / Comment(s): STOMACH CANCER Medications and Allergies Home Medications Medication Instructions Recorded Confirmed Type Albuterol Sulfate [Ventolin HFA] 2 puff INHALATION RT-Q6H PRN 01/01/24 05/15/24 History Docusate [Colace] 200 mg PO BID 02/24/24 05/15/24 History Levothyroxine Sodium [Synthroid] 88 mcg PO DAILY 02/24/24 05/15/24 History polyethylene glycoL 3350 [Miralax] 17 gm PO BID PRN 02/24/24 05/15/24 History Ondansetron [Zofran] 4 mg PO QID PRN 03/16/24 05/15/24 History LORazepam [Ativan] 1 tab PO BID 04/27/24 05/15/24 History ALPRAZolam [Xanax] 0.5 mg PO TID PRN 05/08/24 05/15/24 History OLANZapine [ZyPREXA] 2.5 mg PO HS PRN 05/08/24 05/15/24 History droNABinol [Marinol] 2.5 mg PO AC-BID 05/08/24 05/15/24 History Famotidine [Pepcid] 20 mg PO BID #60 tab 05/12/24 05/15/24 Rx fentaNYL 25MCG/HR PATCH [Duragesic 1 patch TRANSDERM Q72H patch 05/12/24 05/15/24 Rx 25MCG/HR] HYDROcodone/APAP 10-325MG [[place] 1 tab PO Q4HR PRN 05/15/24 05/15/24 History 10-325] Sennosides-Docusate Sodium 1 tab PO BID 05/15/24 05/15/24 History [Senokot-S] Allergies Allergy/AdvReac Type Severity Reaction Status Date / Time No Known Allergies Allergy Verified 05/15/24 10:09 Physical Exam Vitals: Vital Signs Temp Pulse Pulse Resp BP BP Pulse Ox 05/15/24 08:25 99 05/15/24 07:25 98.6 F 87 17 115/74 96 05/15/24 03:10 98.1 F 95 18 116/77 99 05/15/24 03:00 89 13 110/67 99 05/15/24 02:00 91 18 118/74 98 05/15/24 01:11 88 05/15/24 01:03 86 05/15/24 01:00 92 24 120/75 98 05/15/24 00:00 90 26 H 116/81 98 05/14/24 23:10 26 H 05/14/24 23:00 82 28 H 127/90 97 05/14/24 22:31 98.4 F 84 16 127/90 99 Intake and Output 05/14/24 05/15/24 05/15/24 22:59 06:59 14:59 Other: # Voids 1 Weight 35.38 kg 35.38 kg - Constitutional General appearance: no acute distress, thin - EENT Eyes: anicteric sclerae, EOMI ENT: hearing grossly normal - Respiratory mildly labord breathing, diminished in RLL - Cardiovascular tachycardic - Gastrointestinal General gastrointestinal: soft, no tenderness - Integumentary Integumentary: no cyanotic - Musculoskeletal Musculoskeletal: generalized weakness - Psychiatric Psychiatric: A&O x's 3 Results CBC & Chem 7: 05/14/24 22:43 05/14/24 22:43 Labs: Abnormal Lab Results - Last 24 Hours (Table) 05/14/24 05/14/24 05/14/24 Range/Units 22:43 22:43 22:43 WBC 1.5 L (3.8-10.6) k/uL Plt Count 100 L (150-450) k/uL Neutrophils # (Manual) 0.60 L (1.3-7.7) k/uL Lymphocytes # (Manual) 0.65 L (1.0-4.8) k/uL APTT 19.5 L (22.0-30.0) sec Sodium 131 L (137-145) mmol/L Creatinine 0.29 L (0.52-1.04) mg/dL AST 47 H (14-36) U/L Total Protein 5.5 L (6.3-8.2) g/dL Albumin 3.3 L (3.5-5.0) g/dL Chest x-ray: report reviewed Assessment and Plan (1) Dyspnea Current Visit: Yes Status: Acute Priority: High Code(s): R06.00 - DYSPNEA, UNSPECIFIED SNOMED Code(s): 874463380 (2) Cancer associated pain Current Visit: Yes Status: Acute Priority: High Code(s): G89.3 - NEOPLASM RELATED PAIN (ACUTE) (CHRONIC) SNOMED Code(s): 42255113660447 (3) Metastasis from breast cancer Current Visit: Yes Status: Acute Priority: High Code(s): C79.9 - SECONDARY MALIGNANT NEOPLASM OF UNSPECIFIED SITE; C50.919 - MALIGNANT NEOPLASM OF UNSP SITE OF UNSPECIFIED FEMALE BREAST SNOMED Code(s): 088626072 (4) Pleural effusion Current Visit: Yes Status: Acute Priority: High Code(s): J90 - PLEURAL EFFUSION, NOT ELSEWHERE CLASSIFIED SNOMED Code(s): 37588856 (5) Anxiety Current Visit: Yes Status: Acute Priority: Medium Code(s): F41.9 - ANXIETY DISORDER, UNSPECIFIED SNOMED Code(s): 43776502 Plan: SOB, recurrent pleural effusion: Presented to the emergency room with worsening shortness of breath over the last day -Upon presentation chest x-ray revealed small bilateral pleural effusions. Pulmonary vascular congestion. -Patient was given IV Lasix. Pulmonary consulted and bronchodilators ordered. Patient is afebrile, 99% on 4 L nasal cannula. -CBC showed WBC 1.5, ANC 600, hemoglobin 13.3, platelets 100,000. BNP 111. -Previous left sided thoracentesis with cytology was positive for malignancy. She had required additional thoracenteses, therefore left pleurx drain was placed. Has had no drainage from pleurx over the last 5 weeks. Was recently discharged from hospital and had right thoracentesis with 1.1 L removed during that admission, cytology still pending -No plan for thoracentesis at this time Anxiety: -Acute on chronic. Worsens with acute symptoms. States Xanax is not helping manage symptoms -I do believe that a component of her readmissions are part in due to her significant issues with anxiety regarding her health and cancer diagnosis -Xanax 0.5mg changed to Ativan 1mg q8hrs prn. Will continue to monitor Metastatic triple negative breast cancer -Full oncological history in HPI -She has continued on treatment with eribulin, and completed cycle 5 on 05/04/24. -In patient had positive tumor marker response, overall stable imaging. CT AP on 05/09/24 reported suboptimal evaluation due to lack of IV the contrast. Large hypodense abnormalities seen in the anterior left lobe of the liver increased since prior comparison, no dimensions documented. Patient has known metastatic disease in the liver, known lymphadenopathy, known bony metastatic disease, though this was previously relatively limited. She did have slight increase in her tumor markers on recheck in March, plan was to cont treatment and recheck scans -Ca 15.3 in March was 199, now 605, Ca 27.29 in march was 303, now 743. Increase in tumor markers, along with reported worsening of known disease on CT AP, consistent with disease progression. -She will require a change in treatment. Plan was to get restaging done with PET then f/u with Dr. Dee to discuss other treatment options and goals of care. PET CT was missed due to last hospitalization and was rescheduled for 05/26/24 -I had a long conversion with patient and spouse today regarding her disease progression, prognosis, and goals of care. At this time patient is not wanting hospice. Although her respiratory status has been poor requiring multiple hospital admissions, pt is still able to care for herself and ambulate at home, and pain is being controlled on current regimen. She would like to further discuss her options with Dr. Dee
--- NOTE | 2024-05-16 01:07 | XR ---
EXAM: XR Thoracic Spine, 2 Views CLINICAL HISTORY: ITS.REASON XR Reason: New Onset Pain TECHNIQUE: Frontal and lateral views of the thoracic spine. COMPARISON: No relevant prior studies available. FINDINGS: Vertebrae: No acute compression fracture. Evaluation limited due to severe demineralization. Recommend thoracic spine CT scan, if clinically indicated. Normal alignment. Disc spaces: No acute findings. No significant narrowing. Pleural space: Small bilateral pleural effusions. Soft tissues: Unremarkable. Tubes, lines and devices: RIGHT Port-A-Cath terminates in the SVC. IMPRESSION: 1. No acute compression fracture. Evaluation limited due to severe demineralization. Recommend thoracic spine CT scan, if clinically indicated. 2. Small bilateral pleural effusions.
[2024-05-16 08:42] LABS: Basophils # (A) 0.04 X 10*3/uL (0.00-0.10); Basophils % (A) 1.7 %; Eosinophils # (A) 0 X 10*3/uL (0.04-0.35); Eosinophils % (A) 0 %; HCT 32.7 % (37.2-46.3); HGB 10.7 g/dL (12.0-15.0); Lymphocytes # (A) 0.67 X 10*3/uL (0.90-5.00); Lymphocytes % (A) 27.8 %; MCH 30.7 pg (27.0-32.0); MCHC 32.7 g/dL (32.0-37.0); MCV 93.7 FL (80.0-97.0); Mean Platelet Volume 10.3 FL (9.5-12.2); Monocytes # (A) 0.65 X 10*3/uL (0.20-1.00); NRBC Per 100 WBC 0 X 10*3/uL (0.00-0.01); Neutrophils # (A) 1.02 X 10*3/uL (1.80-7.70); Neutrophils % (A) 42.3 %; Platelet Count 163 X 10*3/uL (140-440); RBC 3.49 X 10*6/uL (4.10-5.20); RDW 15.4 % (11.5-14.5); WBC 2.41 X 10*3/uL (4.50-10.00)
[2024-05-16 09:37] LABS: BUN/Creat Ratio 16.67 Ratio (12.00-20.00); Calcium 8.9 mg/dL (8.7-10.3); Carbon Dioxide 27.2 mmol/L (21.6-31.8); Chloride 98 mmol/L (96-109); Glucose 93 mg/dL (70-110); Potassium 4.2 mmol/L (3.5-5.5); Sodium 136 mmol/L (135-145)
[2024-05-16 10:45] VITALS: BMI 13.4
--- NOTE | 2024-05-16 11:53 | P.PN ---
Subjective Progress Note Date: 05/16/24 The patient is a 68-year-old female with past medical history significant for metastatic breast cancer. She follows with her oncologist Dr. Dee. She has had recurrent bilateral pleural effusions. She did have a left-sided Pleurx catheter inserted by cardiothoracic surgery on 01/14/2024. 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 Back in January, she did have a recurrent moderate to large sized right-sided pleural effusion, and did undergo thoracentesis. She was recently admitted here in May 08, 2024 for right-sided chest discomfort other right-sided thoracentesis on 05/11/2024 with another 1 L of fluid removed. Cytology is pending. He was discharged home on . Pain control has been her main issue. She was in the ER again last night with complaints of anxiety and felt as though she was having a panic attack. She felt as though she was having a reaction to the [place] which she is taking every 4 hours in addition to a fentanyl patch. Chest x-ray reveals only small bilateral pleural effusions. Left-sided Pleurx catheter in place. Right subclavian Port-A-Cath in place. She is seen today in consultation on the regular medical floor. She is currently sitting up in bed. Awake and alert in no acute distress. She is maintaining O2 saturations in the 90s on 4 L/min per nasal cannula. She remains quite frail and cachectic. Her appetite is poor. White count 1.5. Hemoglobin 13.3. Platelets 100,000. Sodium 131. Potassium 4.1. Bicarb 24. BUN 8. Creatinine 0.29. AST 47. ALT 24. Albumin 3.3. Total protein 5.5. She is continued on needed for her anxiety. She remains on bronchodilators. Fentanyl patch in place. Remains on IV diuretics. Heparin for DVT prophylaxis. Continued on Marinol. The patient is seen today May 16, 2024 in follow-up on the regular medical floor. She is currently sitting up at the bedside. Awake and alert in no acute distress. She is maintaining good O2 saturations in the 90s on 3 L/min per n memo cannula. She has been afebrile. Hemodynamically stable. Still having ongoing issues with back pain. Thoracic x-ray revealed no acute compression fracture. Evaluation limited due to severe demineralization. Small bilateral pleural effusions. White count 2.4. Hemoglobin 10.7. Platelets 163. Sodium 136. Potassium 4.2. Bicarb 27. BUN 5. Creatinine 0.3. Glucose 93. Control. Ativan for anxiety. Objective - Vital Signs Vital signs: Vital Signs Temp 98.5 F 05/16/24 07:17 Pulse 92 05/16/24 09:20 Resp 17 05/16/24 07:17 BP 119/77 05/16/24 07:17 Pulse Ox 96 05/16/24 09:09 FiO2 Intake & Output 05/15/24 05/16/24 05/16/24 18:59 06:59 18:59 Weight 35.38 kg Other: Voiding Method Bedside Commode Toilet Bedside Commode # Voids 3 1 3 - Exam GENERAL EXAM: Alert, frail, cachectic 68-year-old female, on 3 L/min nasal cannula, comfortable in no apparent distress. HEAD: Normocephalic and atraumatic EYES: Normal reaction of pupils, equal size. NOSE: Clear with pink turbinates. THROAT: No erythema or exudates. NECK: No masses, no JVD. CHEST: No chest wall deformity. Right chest Mediport. Left Pleurx catheter insertion site clean, dry, without erythema or drainage LUNGS: Equal air entry with diminished right lung sounds, minimal inspiratory crackles in the left base. CVS: S1 and S2 normal with no audible murmur, regular rhythm. No extra heart sounds ABDOMEN: No hepatosplenomegaly, active bowel sounds, no guarding or rigidity. SPINE: No scoliosis or deformity SKIN: No rashes CENTRAL NERVOUS SYSTEM: No focal deficits, tone is normal in all 4 extremities. EXTREMITIES: There is no peripheral edema, clubbing, or cyanosis. Peripheral pulses are intact. - Labs CBC & Chem 7: 05/16/24 06:00 05/16/24 06:00 Labs: Abnormal Lab Results - Last 24 Hours (Table) 05/16/24 05/16/24 Range/Units 06:00 06:00 WBC 2.41 L (4.50-10.00) X 10*3/uL RBC 3.49 L (4.10-5.20) X 10*6/uL Hgb 10.7 L (12.0-15.0) g/dL Hct 32.7 L (37.2-46.3) % RDW 15.4 H (11.5-14.5) % Neutrophils # 1.02 L (1.80-7.70) X 10*3/uL Lymphocytes # 0.67 L (0.90-5.00) X 10*3/uL Eosinophils # 0 L (0.04-0.35) X 10*3/uL BUN 5.0 L (9.0-27.0) mg/dL Creatinine 0.3 L (0.6-1.5) mg/dL Assessment and Plan Assessment: Anxiety and panic feelings related to her [place] and fentanyl pain medication schedule Recent admission for shortness of breath and pain control discharged on 05/12/2024 Metastatic breast cancer, most recent PET scan performed on 12/03/2023 identified new foci of uptake within the mediastinum and hilar lymph nodes, as well as new foci within the liver, osseous lesions including thoracic vertebral bodies and right ilium and left anterior rib and, as well as persistent uptake in the distal sigmoid colon, these findings are suspicious for disease progression and metastasis. She also has increased tumor marker levels as well. She was to have a follow-up PET scan and be restaged but has been hospitalized twice since then Pancytopenia, secondary to systemic chemotherapy treatments Recurrent moderate to large right-sided pleural effusion, most recent right- sided thoracentesis done 05/11/2024, and a total of 1 L of fluid was removed. Cytology pending. Previous right-sided thoracentesis performed on 02/24/2024. History of malignant left-sided pleural effusion, requiring frequent previous thoracentesis, and eventual Pleurx catheter insertion on 01/14/2024. Patient has been previously draining her catheter weekly, however, over the last 2 weeks no output was noted. Acute on chronic dyspnea, secondary to above History of left-sided mastectomy Severe chronic obstructive pulmonary disease, most recent FEV1 47% of predicted, stable Chronic hypoxemic respiratory failure, maintained on 1-2 L/min nasal cannula while at home Former tobacco smoker, quitting approximately 2 months ago Hypothyroidism History of meningitis History of ovarian cyst Severe protein calorie malnutrition Plan: The patient was seen and evaluated Labs and medications reviewed Titrate down the FiO2 as tolerated Continue the current treatment plan Prognosis remains guarded Medical oncology is following This patient was seen independently by the pulmonary nurse practitioner addressing pulmonary issues I have personally seen and examined the patient, performed the documentation and the assessment and plan as written. Number of minutes spent on the visit: 24.
--- NOTE | 2024-05-16 14:01 | P.PN ---
Subjective Progress Note Date: 05/16/24 This is a pleasant 68-year-old female with history of metastatic triple negative breast cancer with liver lung and bone metastasis. Patient does have a Pleurx catheter in place to the left chest wall for a reoccurring pleural effusion however she has had no drainage over the last 3 weeks from this. Patient was just admitted and discharged from the hospital 2 days ago for shortness of breath found to have a moderate-sized pleural effusion on the right side and underwent thoracentesis with 1 L of fluid drained. Patient was monitored and her oxygenation and saturations had improved. Patient was discharged home and recommended to follow-up closely with her oncologist for a PET scan and restaging of her breast cancer. Imaging that hospital stay also reveals disease progression and patient will need to be reevaluated by oncology for a treatment change. Patient returns to the hospital after 2 days states that she feels significantly anxious and short of breath. Her chest x-ray shows small danay ateral pleural effusions, sodium level of 131. She is not having any chest pain, not having any fever or chills. No nausea vomiting or diarrhea. She has had poor oral intake. We will check a proBNP and patient may benefit from IV Lasix. She will continue on fentanyl patch as well as increased dose of [place]rick tens every 4 hours for pain management. 05/16/2024 Seen in follow-up on the medical floor. She is sitting up at the side of the bed with family at the bedside. Patient has having increased anxiety and Ativan has been increased by oncology. Patient will be taken off the fentanyl patch at this time secondary to feelings of jitteriness. Patient does continue on Herrick 10 mg every 4 hours as needed for pain. Patient developed a new mid back pain with no radiation rating about an 8 out of 10. We did a thoracic x-ray reveals small bilateral pleural effusions there is no acute compression fracture but evaluation was limited due to severe demineralization. If pain continues we would recommend a thoracic spine CT scan. Blood work today reveals a white blood cell count of 2.41, hemoglobin 10.7, sodium level of 136, potassium 4.2, BUN of 8, creatinine of 0.3. REVIEW OF SYSTEMS: CONSTITUTIONAL: No fever, no malaise, no fatigue. HEENT: No recent visual problems or hearing problems. Denied any sore throat. CARDIOVASCULAR: No chest pain, orthopnea, PND, no palpitations, no syncope. PULMONARY: Reports shortness of breath, no cough, no hemoptysis. GASTROINTESTINAL: No diarrhea, no nausea, no vomiting, no abdominal pain. NEUROLOGICAL: No headaches, no weakness, no numbness. PHYSICAL EXAMINATION: GENERAL: The patient is alert and oriented x3, not in any acute distress. Well developed, well nourished. HEENT: Pupils are round and equally reacting to light. EOMI. No scleral icterus. No conjunctival pallor. Normocephalic, atraumatic. No pharyngeal erythema. No thyromegaly. CARDIOVASCULAR: S1 and S2 present. No murmurs, rubs, or gallops. PULMONARY: Chest is clear to auscultation, no wheezing or crackles. ABDOMEN: Soft, nontender, nondistended, normoactive bowel sounds. No palpable organomegaly. MUSCULOSKELETAL: No joint swelling or deformity. EXTREMITIES: No cyanosis, clubbing, or pedal edema. NEUROLOGICAL: Gross neurological examination did not reveal any focal deficits. SKIN: No rashes. Assessment and Plan -Shortness of breath may be secondary to pleural effusion. -Hyponatremia improved with dose of IV lasix -Mid back pain, could be arthritic pain there is demineralization noted on xray, no acute compression fracture noted on xray. Continue with pain management at this time. 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 Has pleurex catheter left lung. -Neutropenia improving from prior admission -Oxygen dependent COPD without any acute exacerbation. -Severe protein calorie malnutrition from cancer, Continue on marinol. GI prophylaxis DVT prophylaxis Full Code Plan -Pulmonary on consult patient is status post thoracentesis on the right side previous admission, was sent for cytology. Still pending One does of IV lasix will be given BNP not elevated however sodium did improve with a dose of Lasix. -Patient will be continued on Herrick along with the bowel regimen. Was taken off fentanyl patch. -Oncology consultation -Psychiatry was consulted for increased anxiety patient also reports difficulty sleeping PT/OT consultation Repeat blood work in the AM Resume appropriate home medications The impression and plan of care has been dictated by Chelsea Rhodes, Nurse Practitioner as directed. Dr. Almaz MD I have performed a history and physical examination and medical decision making of this patient, discussed the same with the dictator, and agree with the dictators assessment and plan as written, documented as a scribe. Based on total visit time, I have performed more than 50% of this visit. Objective - Vital Signs Vital signs: Vital Signs Temp 98.5 F 05/16/24 07:17 Pulse 94 05/16/24 13:11 Resp 17 05/16/24 07:17 BP 119/77 05/16/24 07:17 Pulse Ox 96 05/16/24 09:09 FiO2 Intake & Output 05/15/24 05/16/24 05/16/24 18:59 06:59 18:59 Weight 35.38 kg Other: Voiding Method Bedside Commode Toilet Bedside Commode # Voids 3 1 3 - Labs CBC & Chem 7: 05/16/24 06:00 05/16/24 06:00 Labs: Abnormal Lab Results - Last 24 Hours (Table) 05/16/24 05/16/24 Range/Units 06:00 06:00 WBC 2.41 L (4.50-10.00) X 10*3/uL RBC 3.49 L (4.10-5.20) X 10*6/uL Hgb 10.7 L (12.0-15.0) g/dL Hct 32.7 L (37.2-46.3) % RDW 15.4 H (11.5-14.5) % Neutrophils # 1.02 L (1.80-7.70) X 10*3/uL Lymphocytes # 0.67 L (0.90-5.00) X 10*3/uL Eosinophils # 0 L (0.04-0.35) X 10*3/uL BUN 5.0 L (9.0-27.0) mg/dL Creatinine 0.3 L (0.6-1.5) mg/dL Assessment and Plan Time with Patient: Less than 30
[2024-05-16] MEDS: LORazepam 1 MG TAB PO PRN (18:58)
--- NOTE | 2024-05-17 13:23 | P.PN ---
Subjective Progress Note Date: 05/17/24 The patient is a 68-year-old female with past medical history significant for metastatic breast cancer. She follows with her oncologist Dr. Dee. She has had recurrent bilateral pleural effusions. She did have a left-sided Pleurx catheter inserted by cardiothoracic surgery on 01/14/2024. 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 Back in January, she did have a recurrent moderate to large sized right-sided pleural effusion, and did undergo thoracentesis. She was recently admitted here in May 08, 2024 for right-sided chest discomfort other right-sided thoracentesis on 05/11/2024 with another 1 L of fluid removed. Cytology is pending. He was discharged home on . Pain control has been her main issue. She was in the ER again last night with complaints of anxiety and felt as though she was having a panic attack. She felt as though she was having a reaction to the [place] which she is taking every 4 hours in addition to a fentanyl patch. Chest x-ray reveals only small bilateral pleural effusions. Left-sided Pleurx catheter in place. Right subclavian Port-A-Cath in place. She is seen today in consultation on the regular medical floor. She is currently sitting up in bed. Awake and alert in no acute distress. She is maintaining O2 saturations in the 90s on 4 L/min per nasal cannula. She remains quite frail and cachectic. Her appetite is poor. White count 1.5. Hemoglobin 13.3. Platelets 100,000. Sodium 131. Potassium 4.1. Bicarb 24. BUN 8. Creatinine 0.29. AST 47. ALT 24. Albumin 3.3. Total protein 5.5. She is continued on needed for her anxiety. She remains on bronchodilators. Fentanyl patch in place. Remains on IV diuretics. Heparin for DVT prophylaxis. Continued on Marinol. The patient is seen today May 16, 2024 in follow-up on the regular medical floor. She is currently sitting up at the bedside. Awake and alert in no acute distress. She is maintaining good O2 saturations in the 90s on 3 L/min per n memo cannula. She has been afebrile. Hemodynamically stable. Still having ongoing issues with back pain. Thoracic x-ray revealed no acute compression fracture. Evaluation limited due to severe demineralization. Small bilateral pleural effusions. White count 2.4. Hemoglobin 10.7. Platelets 163. Sodium 136. Potassium 4.2. Bicarb 27. BUN 5. Creatinine 0.3. Glucose 93. Control. Ativan for anxiety. The patient is seen today May 17, 2024 in follow-up on the regular medical floor. She is awake and alert in no acute distress. Sitting up in bed. A little more relaxed today compared to yesterday. Less anxious. Still with some back pain. Denies any worsening shortness of breath, cough or congestion. She is maintaining O2 saturations in the 90s on 3 L/min per nasal cannula. She remains on bronchodilators. Heparin for DVT prophylaxis. Her appetite is fair. Objective - Vital Signs Vital signs: Vital Signs Temp 98.5 F 05/17/24 07:26 Pulse 94 05/17/24 12:14 Resp 16 05/17/24 12:14 BP 117/82 05/17/24 07:26 Pulse Ox 96 05/17/24 07:26 FiO2 Intake & Output 05/16/24 05/17/24 05/17/24 18:59 06:59 18:59 Intake Total 300 Balance 300 Weight 35.38 kg Intake: Oral 300 Other: Voiding Method Toilet Bedside Commode Bedside Commode # Voids 2 1 3 - Exam GENERAL EXAM: Alert, cachectic 68-year-old female, sitting up in bed, on 3 L/min nasal cannula, comfortable in no apparent distress. HEAD: Normocephalic and atraumatic EYES: Normal reaction of pupils, equal size. NOSE: Clear with pink turbinates. THROAT: No erythema or exudates. NECK: No masses, no JVD. CHEST: No chest wall deformity. Right chest Mediport. Left Pleurx catheter insertion site clean, dry, without erythema or drainage LUNGS: Equal air entry with diminished right lung sounds, minimal inspiratory crackles in the left base. CVS: S1 and S2 normal with no audible murmur, regular rhythm. No extra heart sounds ABDOMEN: No hepatosplenomegaly, active bowel sounds, no guarding or rigidity. SPINE: No scoliosis or deformity SKIN: No rashes CENTRAL NERVOUS SYSTEM: No focal deficits, tone is normal in all 4 extremities. EXTREMITIES: There is no peripheral edema, clubbing, or cyanosis. Peripheral pulses are intact. - Labs CBC & Chem 7: 07/15/24 06:00 05/16/24 06:00 Assessment and Plan Assessment: Anxiety and panic feelings. Psychiatry consulted Recent admission for shortness of breath and pain control discharged on 05/12/2024 Metastatic breast cancer, most recent PET scan performed on 12/03/2023 identified new foci of uptake within the mediastinum and hilar lymph nodes, as well as new foci within the liver, osseous lesions including thoracic vertebral bodies and right ilium and left anterior rib and, as well as persistent uptake in the distal sigmoid colon, these findings are suspicious for disease progression and metastasis. She also has increased tumor marker levels as well. She was to have a follow-up PET scan and be restaged but has been hospitalized twice since then Pancytopenia, secondary to systemic chemotherapy treatments Recurrent moderate to large right-sided pleural effusion, most recent right- sided thoracentesis done 05/11/2024, and a total of 1 L of fluid was removed. Cytology pending. Previous right-sided thoracentesis performed on 02/24/2024. History of malignant left-sided pleural effusion, requiring frequent previous thoracentesis, and eventual Pleurx catheter insertion on 01/14/2024. Patient has been previously draining her catheter weekly, however, over the last 2 weeks no output was noted. Acute on chronic dyspnea, secondary to above History of left-sided mastectomy Severe chronic obstructive pulmonary disease, most recent FEV1 47% of predicted, stable Chronic hypoxemic respiratory failure, maintained on 1-2 L/min nasal cannula while at home Former tobacco smoker, quitting approximately 2 months ago Hypothyroidism History of meningitis History of ovarian cyst Severe protein calorie malnutrition Plan: The patient was seen and evaluated Medications reviewed Titrate down the FiO2 as tolerated Continue the current treatment plan Psychiatric consult pending I have personally seen and examined the patient, performed the documentation and the assessment and plan as written. Number of minutes spent on the visit: 10.
[2024-05-17] MEDS ORDERED: ONDANSETRON 4 MG TAB PO PRN (13:59)
[2024-05-17] MEDS ORDERED: QUEtiapine 25 MG TAB PO PRN (13:59)
--- NOTE | 2024-05-17 14:05 | P.CN ---
Psychiatric Consult - . Consult date: 05/17/24 Consult:: 05/17/24 13:19 IDENTIFYING DATA: This patient is a 68-year-old female, currently , she has 1 son, she lives in a house with her , she collects Social Security. REASON FOR REFERRAL: Psychiatry was consulted for severe anxiety cancer diagnosis, insomnia HISTORY OF PRESENT ILLNESS: The patient presented to the hospital on 05/14 complaining of anxiety and shortness of breath. Patient has a history of metastatic breast cancer stage IV. Apparently patient recently had a pleural effusion. Patient was seen today at the bedside agreeable to speak to news writer. She appeared to be frail, was in the middle of eating her lunch. She was fairly polite and cooperative. States that she has been having a hard time being "in and out of the hospital" and also spoke about starting a new chemotherapy medication with her oncologist. States that she has been losing a bit of weight recently, her appetite has been poor. Claims that she has been dealing with chronic anxiety even before her cancer diagnosis. States that she has several panic attacks per day. Claims that her mood is fair at this time. States that her sleep has been poor has been sleeping about 6 hours on and off, appetite has been poor.. At this time patient denies any suicidal or homical ideations, intent or plan. Patient denies any auditory, visual hallucinations and denies any paranoia or delusions. Patients admits to using no recreational drugs or cigarettes PAST PSYCHIATRIC HISTORY: Patient has a a history of severe anxiety. Patient has been previously on different benzodiazepines including Xanax and Ativan. Patient denies any previous psychiatric hospitalizations. Patient denies any psychiatric outpatient follow-up. Patient denies any history of suicide attempts in the past. PAST MEDICAL HISTORY: Past Medical History: Cancer, COPD, Eye Disorder Additional Past Medical History / Comment(s): MENINGITIS, 19 YRS OLD ovarian cyst burst., FLOATER RIGHT EYE., LEFT BREAST CANCER - pt had a recent PET scan that showed at spot that they wanted to check out for mets. Recurrent left- sided pleural effusion, R sided pleural effusion. History of Any Multi-Drug Resistant Organisms: None Reported Past Surgical History: Hysterectomy, Tonsillectomy Additional Past Surgical History / Comment(s): HARITHA CATARACTS with lens implants, Mastectomy, March 2023; left-sided Pleurx catheter placed January 14, 2024, Port- a -cath. Past Anesthesia/Blood Transfusion Reactions: No Reported Reaction Additional Past Anesthesia/Blood Transfusion Reaction / Comment(s): HX OF BLOOD TRANSFUSION-NO REACTION Past Psychological History: Anxiety Smoking Status: Former smoker Past Alcohol Use History: None Reported Past Drug Use History: None Reported ALLERGIES: as per EMR. CHEMICAL DEPENDENCY HISTORY: as per HPI. FAMILY PSYCHIATRIC/SUBSTANCE USE HISTORY: Claims that her mother had anxiety in the past SOCIAL HISTORY: Patient is currently , she lives with her in a house, she has 1 son and 2 stepchildren. She collect Social Security. Claims that she completed high school and did some college. 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 Denies any legal history. MENTAL STATUS EXAM: General Appearance: Patient appears to be frail, laying in bed, stated age is alert, pleasant, and cooperative. Patient appears to have fair hygiene and gr ooming wearing hospital gown with fair eye contact. Behavior: Patient is calmly lying in bed without any agitated behavior. Attempts to cooperate Speech: Patient's speech is fluent and nonpressured. Mood/Affect: Patient reports their mood is "ok but anxious", affect is congruent Suicidality/Homicidality: Patient denies having any suicidal or homicidal ideation intent or plan. Perceptions: Patient denies any visual hallucinations and denies any auditory hallucinations Though content/process: There is no evidence of any delusional thought content and thought process is linear and goal-directed. Focused on her stressors including anxiety Memory and concentration: AOX3, grossly intact for the purposes of this session. Can spell "WORLD" backwards Judgment and insight: Fair IMPRESSIONS: Generalized anxiety disorder with panic attacks PLAN: -At this time patient DOES NOT meet criteria for inpatient psychiatric admission. -Would recommend the following medication changes/additions: Patient is agreeable to try BuSpar 10 mg 3 times daily for anxiety, Seroquel 25 mg nightly scheduled +25 mg daily as needed for severe anxiety/insomnia/appetite stimulation. Discontinue Zyprexa and replaced with zofran prn for nausea. -toll test worker to provide patient with outpatient mental health/psychiatry resources for appropriate follow up upon discharge -Communicated plan to patient's nurse -Will continue to follow along tomorrow -Please contact with any questions. 05/17/24 14:00
[2024-05-17] MEDS: busPIRone HCl 10 MG TAB PO SCH (15:51)
--- NOTE | 2024-05-17 21:12 | P.PN ---
Subjective Progress Note Date: 05/17/24 This is a pleasant 68-year-old female with history of metastatic triple negative breast cancer with liver lung and bone metastasis. Patient does have a Pleurx catheter in place to the left chest wall for a reoccurring pleural effusion however she has had no drainage over the last 3 weeks from this. Patient was just admitted and discharged from the hospital 2 days ago for shortness of breath found to have a moderate-sized pleural effusion on the right side and underwent thoracentesis with 1 L of fluid drained. Patient was monitored and her oxygenation and saturations had improved. Patient was discharged home and recommended to follow-up closely with her oncologist for a PET scan and restaging of her breast cancer. Imaging that hospital stay also reveals disease progression and patient will need to be reevaluated by oncology for a treatment change. Patient returns to the hospital after 2 days states that she feels significantly anxious and short of breath. Her chest x-ray shows small danay ateral pleural effusions, sodium level of 131. She is not having any chest pain, not having any fever or chills. No nausea vomiting or diarrhea. She has had poor oral intake. We will check a proBNP and patient may benefit from IV Lasix. She will continue on fentanyl patch as well as increased dose of [place] tens every 4 hours for pain management. 05/16/2024 Seen in follow-up on the medical floor. She is sitting up at the side of the bed with family at the bedside. Patient has having increased anxiety and Ativan has been increased by oncology. Patient will be taken off the fentanyl patch at this time secondary to feelings of jitteriness. Patient does continue on [place] 10 mg every 4 hours as needed for pain. Patient developed a new mid back pain with no radiation rating about an 8 out of 10. We did a thoracic x-ray reveals small bilateral pleural effusions there is no acute compression fracture but evaluation was limited due to severe demineralization. If pain continues we would recommend a thoracic spine CT scan. Blood work today reveals a white blood cell count of 2.41, hemoglobin 10.7, sodium level of 136, potassium 4.2, BUN of 8, creatinine of 0.3. 05/17/2024 Patient evaluated in follow up today. Patient has been continued on ativan every 4 hours. Continues to report increased anxiety wrestlessnes and insomnia. Pending evaluation and recommendations by psychiatry today. Continues on oral norco q4hour for pain management. REVIEW OF SYSTEMS: CONSTITUTIONAL: No fever, no malaise, no fatigue. HEENT: No recent visual problems or hearing problems. Denied any sore throat. CARDIOVASCULAR: No chest pain, orthopnea, PND, no palpitations, no syncope. PULMONARY: Reports shortness of breath, no cough, no hemoptysis. GASTROINTESTINAL: No diarrhea, no nausea, no vomiting, no abdominal pain. NEUROLOGICAL: No headaches, no weakness, no numbness. PHYSICAL EXAMINATION: GENERAL: The patient is alert and oriented x3, not in any acute distress. Well developed, well nourished. HEENT: Pupils are round and equally reacting to light. EOMI. No scleral icterus. No conjunctival pallor. Normocephalic, atraumatic. No pharyngeal erythema. No thyromegaly. CARDIOVASCULAR: S1 and S2 present. No murmurs, rubs, or gallops. PULMONARY: Chest is clear to auscultation, no wheezing or crackles. ABDOMEN: Soft, nontender, nondistended, normoactive bowel sounds. No palpable organomegaly. MUSCULOSKELETAL: No joint swelling or deformity. EXTREMITIES: No cyanosis, clubbing, or pedal edema. NEUROLOGICAL: Gross neurological examination did not reveal any focal deficits. SKIN: No rashes. Assessment and Plan -Shortness of breath may be secondary to pleural effusion. -Hyponatremia improved with dose of IV lasix -Mid back pain, could be arthritic pain there is demineralization noted on xray, no acute compression fracture noted on xray. Continue with pain management at this time. 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 Has pleurex catheter left lung. -Neutropenia improving from prior admission -Oxygen dependent COPD without any acute exacerbation. -Severe protein calorie malnutrition from cancer, Continue on marinol. GI prophylaxis DVT prophylaxis Full Code Plan -Pulmonary on consult patient is status post thoracentesis on the right side previous admission, was sent for cytology. Still pending One does of IV lasix will be given BNP not elevated however sodium did improve with a dose of Lasix. -Patient will be continued on [place] along with the bowel regimen. Was taken off fentanyl patch. -Oncology consultation -Psychiatry was consulted for increased anxiety patient also reports difficulty sleeping; has been started on seroquel continue with the ativan. Zyprexa discontinued. PT/OT consultation Repeat blood work in the AM Possible home in the next 24 hours. The impression and plan of care has been dictated by Chelsea Rhodes, Nurse Practitioner as directed. Dr. Almaz MD I have performed a history and physical examination and medical decision making of this patient, discussed the same with the dictator, and agree with the dictators assessment and plan as written, documented as a scribe. Based on total visit time, I have performed more than 50% of this visit. Objective - Vital Signs Vital signs: Vital Signs Temp 98.7 F 05/17/24 14:46 Pulse 92 05/17/24 16:42 Resp 18 05/17/24 14:46 BP 108/75 05/17/24 14:46 Pulse Ox 97 05/17/24 14:46 FiO2 Intake & Output 05/17/24 05/17/24 05/18/24 06:59 18:59 06:59 Intake Total 300 Balance 300 Intake: Oral 300 Other: Voiding Method Bedside Commode # Voids 1 2 - Labs CBC & Chem 7: 05/16/24 06:00 05/16/24 06:00 Assessment and Plan Time with Patient: Less than 30
[2024-05-17] MEDS: QUEtiapine 25 MG TAB PO SCH (21:22)
[2024-05-18] MEDS: polyethylene glycoL 3350 17 GM POWD.PACK PO PRN (08:14)
[2024-05-18 08:45] LABS: Basophils # (A) 0.03 X 10*3/uL (0.00-0.10); Basophils % (A) 0.7 %; Eosinophils # (A) 0 X 10*3/uL (0.04-0.35); Eosinophils % (A) 0 %; HCT 34.3 % (37.2-46.3); HGB 11.2 g/dL (12.0-15.0); Lymphocytes # (A) 1.04 X 10*3/uL (0.90-5.00); Lymphocytes % (A) 23.9 %; MCH 30.7 pg (27.0-32.0); MCHC 32.7 g/dL (32.0-37.0); Mean Platelet Volume 10.5 FL (9.5-12.2); Monocytes # (A) 0.81 X 10*3/uL (0.20-1.00); Monocytes % (A) 18.6 %; NRBC Per 100 WBC 0 X 10*3/uL (0.00-0.01); Neutrophils # (A) 2.44 X 10*3/uL (1.80-7.70); Neutrophils % (A) 55.9 %; Platelet Count 164 X 10*3/uL (140-440); RBC 3.65 X 10*6/uL (4.10-5.20); RDW 15.8 % (11.5-14.5); WBC 4.36 X 10*3/uL (4.50-10.00)
[2024-05-18 09:11] LABS: Magnesium 1.9 mg/dL (1.5-2.4)
[2024-05-18 09:22] LABS: BUN/Creat Ratio 22.25 Ratio (12.00-20.00); Blood Urea Nitrogen 8.9 mg/dL (9.0-27.0); Calcium 9.1 mg/dL (8.7-10.3); Carbon Dioxide 25.2 mmol/L (21.6-31.8); Chloride 98 mmol/L (96-109); Glucose 82 mg/dL (70-110); Potassium 4.7 mmol/L (3.5-5.5); Sodium 134 mmol/L (135-145)
[2024-05-18] MEDS: HYDROcodone/APAP 10-325MG 1 EACH TAB PO SCH (11:35)
[2024-05-18] MEDS: SENNOSIDES-DOCUSATE SODIUM 1 EACH TAB PO PRN (13:20)
--- NOTE | 2024-05-18 13:35 | P.PN ---
Progress Note - Text Progress Note Date: 05/18/24 Interval history: Patient was seen today for psychiatric follow-up. Patient appeared to be in br ighter spirits today, states that her anxiety is a bit better since yesterday. Claims that she feels the Seroquel did really help her last night sleep. She states that she got about 7 or 8 hours of sleep and felt better in the morning. She had several questions about her medications and we also spoke about Ativan and our attempts to reduce the reliance on this medication due to tolerance and possible abuse or even overdose potential, she verbally understood and agreed. She claims that she is having mild improvement in her appetite today. States that she wants to live for her family and states that she has a supportive family. At this time she is denying any suicidal or homicidal ideations intent or plan. Denying any auditory or visual hallucinations. MENTAL STATUS EXAM: General Appearance: Patient appears to be frail, laying in bed, stated age is alert, pleasant, and cooperative. Patient appears to have fair hygiene and grooming wearing hospital gown with fair eye contact. Behavior: Patient is calmly lying in bed without any agitated behavior. Cooperative today. Speech: Patient's speech is fluent and nonpressured. Mood/Affect: Patient reports their mood is "less anxious, not depressed", affect is congruent, improving affect Suicidality/Homicidality: Patient denies having any suicidal or homicidal ideation intent or plan. Perceptions: Patient denies any visual hallucinations and denies any auditory hallucinations Though content/process: There is no evidence of any delusional thought content and thought process is linear and goal-directed. Memory and concentration: AOX3, grossly intact for the purposes of this session. Can spell "WORLD" backwards Judgment and insight: Fair IMPRESSIONS: Generalized anxiety disorder with panic attacks PLAN: -At this time patient DOES NOT meet criteria for inpatient psychiatric admission. -Would recommend the following medication changes/additions: Increase BuSpar 15 mg 3 times daily for anxiety, Seroquel 25 mg nightly scheduled + 12.5 mg bid prn for anxiety. ativan dose decreased to 0.5 mg q6hr prn in an attempt to decrease reliance on BZD due to their abuse potential, and overdose potential. -asbestos worker to provide patient with outpatient mental health/psychiatry resources for appropriate follow up upon discharge -Communicated plan to patient's nurse -at this time psychiatry will sign off -Please contact with any questions.
--- NOTE | 2024-05-18 15:08 | P.PN ---
Subjective Progress Note Date: 05/18/24 The patient is a 68-year-old female with past medical history significant for metastatic breast cancer. She follows with her oncologist Dr. Dee. She has had recurrent bilateral pleural effusions. She did have a left-sided Pleurx catheter inserted by cardiothoracic surgery on 01/14/2024. 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 Back in January, she did have a recurrent moderate to large sized right-sided pleural effusion, and did undergo thoracentesis. She was recently admitted here in May 08, 2024 for right-sided chest discomfort other right-sided thoracentesis on 05/11/2024 with another 1 L of fluid removed. Cytology is pending. He was discharged home on . Pain control has been her main issue. She was in the ER again last night with complaints of anxiety and felt as though she was having a panic attack. She felt as though she was having a reaction to the [place] which she is taking every 4 hours in addition to a fentanyl patch. Chest x-ray reveals only small bilateral pleural effusions. Left-sided Pleurx catheter in place. Right subclavian Port-A-Cath in place. She is seen today in consultation on the regular medical floor. She is currently sitting up in bed. Awake and alert in no acute distress. She is maintaining O2 saturations in the 90s on 4 L/min per nasal cannula. She remains quite frail and cachectic. Her appetite is poor. White count 1.5. Hemoglobin 13.3. Platelets 100,000. Sodium 131. Potassium 4.1. Bicarb 24. BUN 8. Creatinine 0.29. AST 47. ALT 24. Albumin 3.3. Total protein 5.5. She is continued on needed for her anxiety. She remains on bronchodilators. Fentanyl patch in place. Remains on IV diuretics. Heparin for DVT prophylaxis. Continued on Marinol. The patient is seen today May 16, 2024 in follow-up on the regular medical floor. She is currently sitting up at the bedside. Awake and alert in no acute distress. She is maintaining good O2 saturations in the 90s on 3 L/min per n memo cannula. She has been afebrile. Hemodynamically stable. Still having ongoing issues with back pain. Thoracic x-ray revealed no acute compression fracture. Evaluation limited due to severe demineralization. Small bilateral pleural effusions. White count 2.4. Hemoglobin 10.7. Platelets 163. Sodium 136. Potassium 4.2. Bicarb 27. BUN 5. Creatinine 0.3. Glucose 93. Control. Ativan for anxiety. The patient is seen today May 17, 2024 in follow-up on the regular medical floor. She is awake and alert in no acute distress. Sitting up in bed. A little more relaxed today compared to yesterday. Less anxious. Still with some back pain. Denies any worsening shortness of breath, cough or congestion. She is maintaining O2 saturations in the 90s on 3 L/min per nasal cannula. She remains on bronchodilators. Heparin for DVT prophylaxis. Her appetite is fair. The patient is seen today May 18, 2024 in follow-up on the regular medical floor. She is sitting up in bed. Awake and alert in no acute distress. A little less anxious again today. Feeling better. Denies any shortness of breath, cough or congestion. She is maintaining good O2 saturations in the 90s on 3 L/min per nasal cannula. She is afebrile. Hemodynamically stable. She is continued on DuoNeb inhalations. Heparin for DVT prophylaxis. Anxiety medications being adjusted per psychiatry. White count 4.3. Hemoglobin 11.2. Platelets 164. Sodium 134. Potassium 4.7. Bicarb 25. BUN 9. Creatinine 0.4. Glucose 82. Objective - Vital Signs Vital signs: Vital Signs Temp 98.4 F 05/18/24 06:48 Pulse 94 05/18/24 12:56 Resp 17 05/18/24 06:48 BP 115/70 05/18/24 06:48 Pulse Ox 93 L 05/18/24 06:48 FiO2 Intake & Output 05/17/24 05/18/24 05/18/24 18:59 06:59 18:59 Intake Total 300 480 Balance 300 480 Intake: Oral 300 480 Other: Voiding Method Bedside Commode # Voids 2 3 - Exam GENERAL EXAM: Alert, cachectic, pleasant 68-year-old female, on 3 L/min nasal cannula, in no apparent distress. HEAD: Normocephalic and atraumatic EYES: Normal reaction of pupils, equal size. NOSE: Clear with pink turbinates. THROAT: No erythema or exudates. NECK: No masses, no JVD. CHEST: No chest wall deformity. Right chest Mediport. Left Pleurx catheter insertion site clean, dry, without erythema or drainage LUNGS: Equal air entry with diminished right lung sounds, minimal inspiratory crackles in the left base. CVS: S1 and S2 normal with no audible murmur, regular rhythm. No extra heart sounds ABDOMEN: No hepatosplenomegaly, active bowel sounds, no guarding or rigidity. SPINE: No scoliosis or deformity SKIN: No rashes CENTRAL NERVOUS SYSTEM: No focal deficits, tone is normal in all 4 extremities. EXTREMITIES: There is no peripheral edema, clubbing, or cyanosis. Peripheral pulses are intact. - Labs CBC & Chem 7: 05/18/24 04:56 05/18/24 04:56 Labs: Abnormal Lab Results - Last 24 Hours (Table) 05/18/24 05/18/24 Range/Units 04:56 04:56 WBC 4.36 L (4.50-10.00) X 10*3/uL RBC 3.65 L (4.10-5.20) X 10*6/uL Hgb 11.2 L (12.0-15.0) g/dL Hct 34.3 L (37.2-46.3) % RDW 15.8 H (11.5-14.5) % Eosinophils # 0 L (0.04-0.35) X 10*3/uL Sodium 134 L (135-145) mmol/L BUN 8.9 L (9.0-27.0) mg/dL Creatinine 0.4 L (0.6-1.5) mg/dL BUN/Creatinine Ratio 22.25 H (12.00-20.00) Ratio Microbiology - Last 24 Hours (Table) 05/17/24 05:07 Blood Culture - Preliminary Blood 05/17/24 05:40 Blood Culture - Preliminary Blood Assessment and Plan Assessment: Anxiety and panic feelings. Psychiatry consulted, medications being adjusted Recent admission for shortness of breath and pain control discharged on 05/12/2024 Metastatic breast cancer, most recent PET scan performed on 12/03/2023 identified new foci of uptake within the mediastinum and hilar lymph nodes, as well as new foci within the liver, osseous lesions including thoracic vertebral bodies and right ilium and left anterior rib and, as well as persistent uptake in the di stal sigmoid colon, these findings are suspicious for disease progression and metastasis. She also has increased tumor marker levels as well. She was to have a follow-up PET scan and be restaged but has been hospitalized twice since then Pancytopenia, secondary to systemic chemotherapy treatments Recurrent moderate to large right-sided pleural effusion, most recent right- sided thoracentesis done 05/11/2024, and a total of 1 L of fluid was removed. Cytology pending. Previous right-sided thoracentesis performed on 02/24/2024. History of malignant left-sided pleural effusion, requiring frequent previous thoracentesis, and eventual Pleurx catheter insertion on 01/14/2024. Patient has been previously draining her catheter weekly, however, over the last 2 weeks no output was noted. Acute on chronic dyspnea, secondary to above History of left-sided mastectomy Severe chronic obstructive pulmonary disease, most recent FEV1 47% of predicted, stable Chronic hypoxemic respiratory failure, maintained on 1-2 L/min nasal cannula while at home Former tobacco smoker, quitting approximately 2 months ago Hypothyroidism History of meningitis History of ovarian cyst Severe protein calorie malnutrition Plan: The patient was seen and evaluated Medications and labs reviewed Titrate down the FiO2 as tolerated Continue the current treatment plan Anxiety medications being adjusted per psychiatry Plan is for home with home care at discharge I have personally seen and examined the patient, performed the documentation and the assessment and plan as written. Number of minutes spent on the visit: 10.
[2024-05-18] MEDS: busPIRone HCl 5 MG TAB PO SCH (17:09)
--- NOTE | 2024-05-18 18:07 | P.PN ---
Subjective Progress Note Date: 05/18/24 At today's visit patient is reporting anxiety. She states last night after starting Seroquel she had a good night's sleep but this morning she is feeling like her anxiety has increased. She did require 1 dose of p.o. Ativan. No acute changes in breathing. Patient was seen by psychiatry and started on BuSpar 3 times daily and Seroquel at bedtime. Patient is stating left-sided chest wall pain and mid to lower back pain has not been well-controlled on current regimen of [place] 10 mg. Will adjust pain medications, d/c [place], start oxycodone IR 15 mg. Objective - Vital Signs Vital signs: Vital Signs Temp 98.4 F 05/18/24 06:48 Pulse 90 05/18/24 09:13 Resp 17 05/18/24 06:48 BP 115/70 05/18/24 06:48 Pulse Ox 93 L 05/18/24 06:48 FiO2 Intake & Output 05/17/24 05/18/24 05/18/24 18:59 06:59 18:59 Intake Total 300 480 Balance 300 480 Intake: Oral 300 480 Other: Voiding Method Bedside Commode # Voids 2 3 - Constitutional General appearance: Present: mild distress, thin - EENT Eyes: Present: EOMI ENT: Present: hearing grossly normal - Respiratory Details: breathing is even and unlabored - Cardiovascular Details: skin warm and dry - Integumentary Integumentary: Absent: cyanotic - Musculoskeletal Musculoskeletal: Present: generalized weakness - Psychiatric Psychiatric: Present: A&O x's 3 - Labs CBC & Chem 7: 05/18/24 04:56 05/18/24 04:56 Labs: Abnormal Lab Results - Last 24 Hours (Table) 05/18/24 05/18/24 Range/Units 04:56 04:56 WBC 4.36 L (4.50-10.00) X 10*3/uL RBC 3.65 L (4.10-5.20) X 10*6/uL Hgb 11.2 L (12.0-15.0) g/dL Hct 34.3 L (37.2-46.3) % RDW 15.8 H (11.5-14.5) % Eosinophils # 0 L (0.04-0.35) X 10*3/uL Sodium 134 L (135-145) mmol/L BUN 8.9 L (9.0-27.0) mg/dL Creatinine 0.4 L (0.6-1.5) mg/dL BUN/Creatinine Ratio 22.25 H (12.00-20.00) Ratio Assessment and Plan (1) Dyspnea Current Visit: Yes Status: Acute Priority: High Code(s): R06.00 - DYSPNEA, UNSPECIFIED SNOMED Code(s): 805392575 (2) Cancer associated pain Current Visit: Yes Status: Acute Priority: High Code(s): G89.3 - NEOPLASM RELATED PAIN (ACUTE) (CHRONIC) SNOMED Code(s): 44820464237611 (3) Metastasis from breast cancer Current Visit: Yes Status: Acute Priority: High Code(s): C79.9 - SECONDARY MALIGNANT NEOPLASM OF UNSPECIFIED SITE; C50.919 - MALIGNANT NEOPLASM OF UNSP SITE OF UNSPECIFIED FEMALE BREAST SNOMED Code(s): 149905691 (4) Pleural effusion Current Visit: Yes Status: Acute Priority: High Code(s): J90 - PLEURAL EFFUSION, NOT ELSEWHERE CLASSIFIED SNOMED Code(s): 63456388 (5) Anxiety Current Visit: Yes Status: Acute Priority: High Code(s): F41.9 - ANXIETY DISORDER, UNSPECIFIED SNOMED Code(s): 60203683 Plan: SOB, recurrent pleural effusion: Presented to the emergency room with worsening shortness of breath over the last day -Upon presentation chest x-ray revealed small bilateral pleural effusions. Pulmonary vascular congestion. -Patient was given IV Lasix. Pulmonary consulted and bronchodilators ordered. Patient is afebrile, 99% on 4 L nasal cannula. -Previous left sided thoracentesis with cytology was positive for malignancy. She had required additional thoracenteses, therefore left pleurx drain was placed. Has had no drainage from pleurx over the last 5 weeks. Was recently discharged from hospital and had right thoracentesis with 1.1 L removed during that admission, cytology positive for metastatic ductal mammary carcinoma -No plan for repeat thoracentesis at this time Anxiety: -Acute on chronic. Worsens with acute symptoms. Xanax not helping manage symptoms -I do believe that a component of her readmissions are due to her significant issues with anxiety regarding her health and cancer diagnosis -Xanax d/c. Changed to Ativan 1mg q4hrs prn -Arya consulted. Started buspar TID, and seroquel at bedtime. Appreciate recommendations -Will continue to monitor symptoms Intractable pain: -Persisting left lateral chest wall and lower thoracic back pain. Known mets to T2 nd T%, but pain currently in lower thoracic spine. -She reported intolerance to fentanyl patch, so med was d/c. Continues on norco 10mg prn, but not having good pain control -[place] discontinued, add oxycodone IR 15mg q4hrs -Thoracic spine x-ray negative for acute compression fracture. Discussed with patient about obtaining MRI of thoracic spine, but she does not think she can tolerate exam at this time. Discussed case with admitting time, may consider bone scan if pt can tolerate. If not, PET CT is scheduled for 05/26 so will get further evaluation at that time. If metastatic disease is noted will consult rad onc for palliative RT Metastatic triple negative breast cancer -Full oncological history in consult HPI -She has continued on treatment with eribulin, and completed cycle 5 on 05/04/24. -In patient had positive tumor marker response, overall stable imaging. CT AP on 05/09/24 reported suboptimal evaluation due to lack of IV the contrast. Large hypodense abnormalities seen in the anterior left lobe of the liver increased since prior comparison, no dimensions documented. Patient has known metastatic disease in the liver, known lymphadenopathy, known bony metastatic disease, though this was previously relatively limited. She did have slight increase in her tumor markers on recheck in March, plan was to cont treatment and recheck scans -Ca 15.3 in March was 199, now 605, Ca 27.29 in march was 303, now 743. Increase in tumor markers, along with reported worsening of known disease on CT AP, consistent with disease progression, however, patient has had multiple delays in treatment due repeat hospitalizations, so will consider continuing on eribulin once patient has adequately recovered and PS/anxiety is improved -PET CT was missed due to last hospitalization and is rescheduled for 05/26/24 Had a long conversation with patient regarding reported disease progression, prognosis, treatment, and goals of care. At this time patient is not wanting hospice. Although her respiratory status has been poor requiring multiple hospital admissions, pt has been able to care for herself and ambulate at home, with controlled pain since pain med adjustment. Goal is to keep pain controlled, manage anxiety, and improve PS, so treatment can be restarted, however, at this time treatment will be on hold Discussed case with IM, agree that patient would benefit from palliative care referral
[2024-05-18] MEDS: LORazepam 1 MG TAB PO PRN (18:21)
--- NOTE | 2024-05-18 21:20 | P.PN ---
Subjective Progress Note Date: 05/18/24 This is a pleasant 68-year-old female with history of metastatic triple negative breast cancer with liver lung and bone metastasis. Patient does have a Pleurx catheter in place to the left chest wall for a reoccurring pleural effusion however she has had no drainage over the last 3 weeks from this. Patient was just admitted and discharged from the hospital 2 days ago for shortness of breath found to have a moderate-sized pleural effusion on the right side and underwent thoracentesis with 1 L of fluid drained. Patient was monitored and her oxygenation and saturations had improved. Patient was discharged home and recommended to follow-up closely with her oncologist for a PET scan and restaging of her breast cancer. Imaging that hospital stay also reveals disease progression and patient will need to be reevaluated by oncology for a treatment change. Patient returns to the hospital after 2 days states that she feels significantly anxious and short of breath. Her chest x-ray shows small danay ateral pleural effusions, sodium level of 131. She is not having any chest pain, not having any fever or chills. No nausea vomiting or diarrhea. She has had poor oral intake. We will check a proBNP and patient may benefit from IV Lasix. She will continue on fentanyl patch as well as increased dose of [place] tens every 4 hours for pain management. 05/16/2024 Seen in follow-up on the medical floor. She is sitting up at the side of the bed with family at the bedside. Patient has having increased anxiety and Ativan has been increased by oncology. Patient will be taken off the fentanyl patch at this time secondary to feelings of jitteriness. Patient does continue on [place] 10 mg every 4 hours as needed for pain. Patient developed a new mid back pain with no radiation rating about an 8 out of 10. We did a thoracic x-ray reveals small bilateral pleural effusions there is no acute compression fracture but evaluation was limited due to severe demineralization. If pain continues we would recommend a thoracic spine CT scan. Blood work today reveals a white blood cell count of 2.41, hemoglobin 10.7, sodium level of 136, potassium 4.2, BUN of 8, creatinine of 0.3. 05/17/2024 Patient evaluated in follow up today. Patient has been continued on ativan every 4 hours. Continues to report increased anxiety wrestlessnes and insomnia. Pending evaluation and recommendations by psychiatry today. Continues on oral norco q4hour for pain management. 05/18/2024 Patient is evaluated today in follow up on the medical floor. Patient has continued to report significant thoracic back pain with prior PET scan in December showing uptake at T2 and T5. Patient was unable to work with physical therapy today without worsening back pain. Patient has been started on oral oxycodone by oncology. Patient was offered thoracic MRI Vs. bone scan does not feel she is able to lye flat for any further testing due to her shortness of breath. REVIEW OF SYSTEMS: CONSTITUTIONAL: No fever, no malaise, no fatigue. HEENT: No recent visual problems or hearing problems. Denied any sore throat. CARDIOVASCULAR: No chest pain, orthopnea, PND, no palpitations, no syncope. PULMONARY: Reports shortness of breath, no cough, no hemoptysis. GASTROINTESTINAL: No diarrhea, no nausea, no vomiting, no abdominal pain. NEUROLOGICAL: No headaches, no weakness, no numbness. PHYSICAL EXAMINATION: GENERAL: The patient is alert and oriented x3, not in any acute distress. Well developed, well nourished. HEENT: Pupils are round and equally reacting to light. EOMI. No scleral icterus. No conjunctival pallor. Normocephalic, atraumatic. No pharyngeal erythema. No thyromegaly. CARDIOVASCULAR: S1 and S2 present. No murmurs, rubs, or gallops. PULMONARY: Chest is clear to auscultation, no wheezing or crackles. ABDOMEN: Soft, nontender, nondistended, normoactive bowel sounds. No palpable organomegaly. MUSCULOSKELETAL: No joint swelling or deformity. EXTREMITIES: No cyanosis, clubbing, or pedal edema. NEUROLOGICAL: Gross neurological examination did not reveal any focal deficits. SKIN: No rashes. Assessment and Plan -Shortness of breath may be secondary to pleural effusion. -Hyponatremia improved with dose of IV lasix -Mid back pain, could be arthritic pain there is demineralization noted on xray, no acute compression fracture noted on xray. Continue with pain management at this time. 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 Has pleurex catheter left lung. -Neutropenia improving from prior admission -Oxygen dependent COPD without any acute exacerbation. -Severe protein calorie malnutrition from cancer, Continue on marinol. GI prophylaxis DVT prophylaxis Full Code Plan -Pulmonary on consult patient is status post thoracentesis on the right side previous admission, was sent for cytology which reveals metastatic ductal mammary carcinoma. -Patient has been started on oral oxycodone for improved pain control -Offered thoracic MRI vs. bone scan she feels she is unable to tolerate lying flat for procedure -Oncology consultation -Psychiatry was consulted for increased anxiety patient also reports difficulty sleeping; has been started on seroquel continue with the ativan. Zyprexa discontinued. Started on buspar. PT/OT consultation Repeat blood work in the AM Possible home in the next 24 hours. The impression and plan of care has been dictated by Chelsea Rhodes, Nurse Practitioner as directed. Dr. Almaz MD I have performed a history and physical examination and medical decision making of this patient, discussed the same with the dictator, and agree with the dictators assessment and plan as written, documented as a scribe. Based on total visit time, I have performed more than 50% of this visit. Objective - Vital Signs Vital signs: Vital Signs Temp 98.3 F 05/18/24 14:00 Pulse 90 05/18/24 16:16 Resp 18 05/18/24 14:00 BP 112/73 05/18/24 14:00 Pulse Ox 95 05/18/24 14:00 FiO2 Intake & Output 05/18/24 05/18/24 05/19/24 06:59 18:59 06:59 Intake Total 480 Balance 480 Intake: Oral 480 Other: Voiding Method Bedside Commode # Voids 3 1 - Labs CBC & Chem 7: 05/18/24 04:56 05/18/24 04:56 Labs: Abnormal Lab Results - Last 24 Hours (Table) 05/18/24 05/18/24 Range/Units 04:56 04:56 WBC 4.36 L (4.50-10.00) X 10*3/uL RBC 3.65 L (4.10-5.20) X 10*6/uL Hgb 11.2 L (12.0-15.0) g/dL Hct 34.3 L (37.2-46.3) % RDW 15.8 H (11.5-14.5) % Eosinophils # 0 L (0.04-0.35) X 10*3/uL Sodium 134 L (135-145) mmol/L BUN 8.9 L (9.0-27.0) mg/dL Creatinine 0.4 L (0.6-1.5) mg/dL BUN/Creatinine Ratio 22.25 H (12.00-20.00) Ratio Microbiology - Last 24 Hours (Table) 05/17/24 05:07 Blood Culture - Preliminary Blood 05/17/24 05:40 Blood Culture - Preliminary Blood Assessment and Plan Time with Patient: Less than 30
[2024-05-19 08:50] LABS: Basophils # (A) 0.04 X 10*3/uL (0.00-0.10); Basophils % (A) 0.7 %; Eosinophils # (A) 0.01 X 10*3/uL (0.04-0.35); Eosinophils % (A) 0.2 %; HCT 35.3 % (37.2-46.3); HGB 11.7 g/dL (12.0-15.0); Lymphocytes # (A) 0.91 X 10*3/uL (0.90-5.00); Lymphocytes % (A) 16.6 %; MCH 31.2 pg (27.0-32.0); MCHC 33.1 g/dL (32.0-37.0); MCV 94.1 FL (80.0-97.0); Monocytes # (A) 0.78 X 10*3/uL (0.20-1.00); Monocytes % (A) 14.2 %; NRBC Per 100 WBC 0 X 10*3/uL (0.00-0.01); Neutrophils # (A) 3.67 X 10*3/uL (1.80-7.70); Platelet Count 165 X 10*3/uL (140-440); RBC 3.75 X 10*6/uL (4.10-5.20); RDW 15.9 % (11.5-14.5); WBC 5.48 X 10*3/uL (4.50-10.00)
[2024-05-19 09:14] LABS: BUN/Creat Ratio 19.75 Ratio (12.00-20.00); Blood Urea Nitrogen 7.9 mg/dL (9.0-27.0); Calcium 9.1 mg/dL (8.7-10.3); Carbon Dioxide 26.2 mmol/L (21.6-31.8); Chloride 96 mmol/L (96-109); Glucose 94 mg/dL (70-110); Magnesium 1.9 mg/dL (1.5-2.4); Potassium 4.7 mmol/L (3.5-5.5); Sodium 132 mmol/L (135-145)
--- NOTE | 2024-05-19 12:59 | P.PN ---
Subjective Progress Note Date: 05/19/24 The patient is a 68-year-old female with past medical history significant for metastatic breast cancer. She follows with her oncologist Dr. Dee. She has had recurrent bilateral pleural effusions. She did have a left-sided Pleurx catheter inserted by cardiothoracic surgery on 01/14/2024. 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 Back in January, she did have a recurrent moderate to large sized right-sided pleural effusion, and did undergo thoracentesis. She was recently admitted here in May 08, 2024 for right-sided chest discomfort other right-sided thoracentesis on 05/11/2024 with another 1 L of fluid removed. Cytology is pending. He was discharged home on . Pain control has been her main issue. She was in the ER again last night with complaints of anxiety and felt as though she was having a panic attack. She felt as though she was having a reaction to the Powell which she is taking every 4 hours in addition to a fentanyl patch. Chest x-ray reveals only small bilateral pleural effusions. Left-sided Pleurx catheter in place. Right subclavian Port-A-Cath in place. She is seen today in consultation on the regular medical floor. She is currently sitting up in bed. Awake and alert in no acute distress. She is maintaining O2 saturations in the 90s on 4 L/min per nasal cannula. She remains quite frail and cachectic. Her appetite is poor. White count 1.5. Hemoglobin 13.3. Platelets 100,000. Sodium 131. Potassium 4.1. Bicarb 24. BUN 8. Creatinine 0.29. AST 47. ALT 24. Albumin 3.3. Total protein 5.5. She is continued on needed for her anxiety. She remains on bronchodilators. Fentanyl patch in place. Remains on IV diuretics. Heparin for DVT prophylaxis. Continued on Marinol. The patient is seen today May 16, 2024 in follow-up on the regular medical floor. She is currently sitting up at the bedside. Awake and alert in no acute distress. She is maintaining good O2 saturations in the 90s on 3 L/min per n memo cannula. She has been afebrile. Hemodynamically stable. Still having ongoing issues with back pain. Thoracic x-ray revealed no acute compression fracture. Evaluation limited due to severe demineralization. Small bilateral pleural effusions. White count 2.4. Hemoglobin 10.7. Platelets 163. Sodium 136. Potassium 4.2. Bicarb 27. BUN 5. Creatinine 0.3. Glucose 93. Control. Ativan for anxiety. The patient is seen today May 17, 2024 in follow-up on the regular medical floor. She is awake and alert in no acute distress. Sitting up in bed. A little more relaxed today compared to yesterday. Less anxious. Still with some back pain. Denies any worsening shortness of breath, cough or congestion. She is maintaining O2 saturations in the 90s on 3 L/min per nasal cannula. She remains on bronchodilators. Heparin for DVT prophylaxis. Her appetite is fair. The patient is seen today May 18, 2024 in follow-up on the regular medical floor. She is sitting up in bed. Awake and alert in no acute distress. A little less anxious again today. Feeling better. Denies any shortness of breath, cough or congestion. She is maintaining good O2 saturations in the 90s on 3 L/min per nasal cannula. She is afebrile. Hemodynamically stable. She is continued on DuoNeb inhalations. Heparin for DVT prophylaxis. Anxiety medications being adjusted per psychiatry. White count 4.3. Hemoglobin 11.2. Platelets 164. Sodium 134. Potassium 4.7. Bicarb 25. BUN 9. Creatinine 0.4. Glucose 82. The patient is seen today May 19, 2024 in follow-up on the regular medical floo r. She is sitting up at the bedside. Awake and alert in no acute distress. Still having some ongoing issues with back pain. Denies any worsening shortness of breath, cough or congestion. Maintaining O2 saturations in the 90s on 3 L/min per nasal cannula. White count 5.8. Hemoglobin 11.7. Platelets 165. Sodium 132. Potassium 4.7. Bicarb 26. BUN 8. Creatinine 0.4. Glucose 94. Blood cultures revealed no growth. She remains on DuoNeb inhalations. Heparin for DVT prophylaxis. Anxiety medications being adjusted per psychiatry. Objective - Vital Signs Vital signs: Vital Signs Temp 98.2 F 05/19/24 07:07 Pulse 101 H 05/19/24 12:10 Resp 18 05/19/24 11:09 BP 109/73 05/19/24 07:07 Pulse Ox 99 05/19/24 09:14 FiO2 Intake & Output 05/18/24 05/19/24 05/19/24 18:59 06:59 18:59 Other: Voiding Method Bedside Commode Bedside Commode # Voids 1 2 - Exam GENERAL EXAM: Alert, frail, pleasant 68-year-old female, sitting up at the bedside, on 3 L/min nasal cannula, in no apparent distress. HEAD: Normocephalic and atraumatic EYES: Normal reaction of pupils, equal size. NOSE: Clear with pink turbinates. THROAT: No erythema or exudates. NECK: No masses, no JVD. CHEST: No chest wall deformity. Right chest Mediport. Left Pleurx catheter insertion site clean, dry, without erythema or drainage LUNGS: Equal air entry with diminished right lung sounds, minimal inspiratory crackles in the left base. CVS: S1 and S2 normal with no audible murmur, regular rhythm. No extra heart sounds ABDOMEN: No hepatosplenomegaly, active bowel sounds, no guarding or rigidity. SPINE: No scoliosis or deformity SKIN: No rashes CENTRAL NERVOUS SYSTEM: No focal deficits, tone is normal in all 4 extremities. EXTREMITIES: There is no peripheral edema, clubbing, or cyanosis. Peripheral pulses are intact. - Labs CBC & Chem 7: 05/19/24 04:47 05/19/24 04:50 Labs: Abnormal Lab Results - Last 24 Hours (Table) 05/19/24 05/19/24 Range/Units 04:47 04:50 RBC 3.75 L (4.10-5.20) X 10*6/uL Hgb 11.7 L (12.0-15.0) g/dL Hct 35.3 L (37.2-46.3) % RDW 15.9 H (11.5-14.5) % Immature Gran # 0.07 H (0.00-0.04) X 10*3/uL Eosinophils # 0.01 L (0.04-0.35) X 10*3/uL Sodium 132 L (135-145) mmol/L BUN 7.9 L (9.0-27.0) mg/dL Creatinine 0.4 L (0.6-1.5) mg/dL Microbiology - Last 24 Hours (Table) 05/17/24 05:07 Blood Culture - Preliminary Blood 05/17/24 05:40 Blood Culture - Preliminary Blood Assessment and Plan Assessment: Anxiety and panic feelings. Psychiatry consulted, medications being adjusted Recent admission for shortness of breath and pain control discharged on 05/12/2024 Metastatic breast cancer, most recent PET scan performed on 12/03/2023 identified new foci of uptake within the mediastinum and hilar lymph nodes, as well as new foci within the liver, osseous lesions including thoracic vertebral bodies and right ilium and left anterior rib and, as well as persistent uptake in the distal sigmoid colon, these findings are suspicious for disease progression and metastasis. She also has increased tumor marker levels as well. She was to have a follow-up PET scan and be restaged but has been hospitalized twice since then Pancytopenia, secondary to systemic chemotherapy treatments Recurrent moderate to large right-sided pleural effusion, most recent right- sided thoracentesis done 05/11/2024, and a total of 1 L of fluid was removed. Cytology pending. Previous right-sided thoracentesis performed on 02/24/2024. History of malignant left-sided pleural effusion, requiring frequent previous thoracentesis, and eventual Pleurx catheter insertion on 01/14/2024. Patient has been previously draining her catheter weekly, however, over the last 2 weeks no output was noted. Acute on chronic dyspnea, secondary to above History of left-sided mastectomy Severe chronic obstructive pulmonary disease, most recent FEV1 47% of predicted, stable Chronic hypoxemic respiratory failure, maintained on 1-2 L/min nasal cannula while at home Former tobacco smoker, quitting approximately 2 months ago Hypothyroidism History of meningitis History of ovarian cyst Severe protein calorie malnutrition Plan: The patient was seen and evaluated Medications and labs reviewed Continue the current treatment plan Patient has home oxygen in place Plan is for home with home care at discharge I have personally seen and examined the patient, performed the documentation and the assessment and plan as written. Number of minutes spent on the visit: 10.
--- NOTE | 2024-05-19 13:41 | P.PN ---
Subjective Progress Note Date: 05/19/24 At today's visit patient is reporting increased anxiety after taking buspar, and feels like medication is worsening her symptoms. Admitting team has d/c Willem. She states seroquel is helping at night to calm anxiety and is getting a good night of sleep. Reporting pain is much better controlled on oxycodone. Pain at 3/10 this morning. She is ambulating better this morning, getting to commode ad sink without assistance Objective - Vital Signs Vital signs: Vital Signs Temp 98.2 F 05/19/24 07:07 Pulse 101 H 05/19/24 12:10 Resp 18 05/19/24 11:09 BP 109/73 05/19/24 07:07 Pulse Ox 99 05/19/24 09:14 FiO2 Intake & Output 05/18/24 05/19/24 05/19/24 18:59 06:59 18:59 Other: Voiding Method Bedside Commode Bedside Commode # Voids 1 2 - Constitutional General appearance: Present: no acute distress, thin - EENT Eyes: Present: anicteric sclerae, EOMI ENT: Present: hearing grossly normal - Respiratory Details: breathing is labored, but was just ambulating at time of visit, no acute changes - Cardiovascular Details: well perfused - Integumentary Integumentary: Absent: cyanotic - Musculoskeletal Musculoskeletal: Present: generalized weakness - Psychiatric Psychiatric: Present: A&O x's 3 - Labs CBC & Chem 7: 05/19/24 04:47 05/19/24 04:50 Labs: Abnormal Lab Results - Last 24 Hours (Table) 05/19/24 05/19/24 Range/Units 04:47 04:50 RBC 3.75 L (4.10-5.20) X 10*6/uL Hgb 11.7 L (12.0-15.0) g/dL Hct 35.3 L (37.2-46.3) % RDW 15.9 H (11.5-14.5) % Immature Gran # 0.07 H (0.00-0.04) X 10*3/uL Eosinophils # 0.01 L (0.04-0.35) X 10*3/uL Sodium 132 L (135-145) mmol/L BUN 7.9 L (9.0-27.0) mg/dL Creatinine 0.4 L (0.6-1.5) mg/dL Microbiology - Last 24 Hours (Table) 05/17/24 05:07 Blood Culture - Preliminary Blood 05/17/24 05:40 Blood Culture - Preliminary Blood Assessment and Plan (1) Dyspnea Current Visit: Yes Status: Acute Priority: High Code(s): R06.00 - DYSPNEA, UNSPECIFIED SNOMED Code(s): 485250447 (2) Cancer associated pain Current Visit: Yes Status: Acute Priority: High Code(s): G89.3 - NEOPLASM RELATED PAIN (ACUTE) (CHRONIC) SNOMED Code(s): 57089671049734 (3) Metastasis from breast cancer Current Visit: Yes Status: Acute Priority: High Code(s): C79.9 - SECONDARY MALIGNANT NEOPLASM OF UNSPECIFIED SITE; C50.919 - MALIGNANT NEOPLASM OF UNSP SITE OF UNSPECIFIED FEMALE BREAST SNOMED Code(s): 783552020 (4) Pleural effusion Current Visit: Yes Status: Acute Priority: High Code(s): J90 - PLEURAL EFFUSION, NOT ELSEWHERE CLASSIFIED SNOMED Code(s): 04046155 (5) Anxiety Current Visit: Yes Status: Acute Priority: High Code(s): F41.9 - ANXIETY DISORDER, UNSPECIFIED SNOMED Code(s): 18769979 Plan: SOB, recurrent pleural effusion: Presented to the emergency room with worsening shortness of breath over the last day -Upon presentation chest x-ray revealed small bilateral pleural effusions. Pulmonary vascular congestion. -Patient was given IV Lasix. Pulmonary consulted and bronchodilators ordered. Patient is afebrile, 99% on 4 L nasal cannula. -Previous left sided thoracentesis with cytology was positive for malignancy. She had required additional thoracenteses, therefore left pleurx drain was placed. Has had no drainage from pleurx over the last 5 weeks. Was recently discharged from hospital and had right thoracentesis with 1.1 L removed during that admission, cytology positive for metastatic ductal mammary carcinoma -No plan for repeat thoracentesis at this time Anxiety: -Acute on chronic. Worsens with acute symptoms. Xanax not helping manage sy mptoms -I do believe that a component of her readmissions are due to her significant issues with anxiety regarding her health and cancer diagnosis -Xanax d/c. Changed to Ativan 1mg q4hrs prn -Arya consulted. Started buspar TID, and seroquel at bedtime. Appreciate recommendations -Patient feels buspar has worsened anxiety, has since been d/c. Continues on seroquel and ativan -Will continue to monitor symptoms Intractable pain: -Persisting left lateral chest wall and lower thoracic back pain. Known mets to T2 nd T5, but pain currently in lower thoracic spine. -She reported intolerance to fentanyl patch, so med was d/c. Continued on norco 10mg prn, but was not having good pain control -[place] discontinued, changed to oxycodone IR 15mg. -Thoracic spine x-ray negative for acute compression fracture. Discussed with patient about obtaining MRI of thoracic spine, but she does not think she can tolerate exam at this time. Discussed case with admitting time, may consider bone scan if pt can tolerate. If not, PET CT is scheduled for 05/26 so will get further evaluation at that time. If metastatic disease is noted will consult rad onc for palliative RT -Pain much better controlled on oxycodone. Will plan to send patient home on the same. Will reevaluate in the morning Metastatic triple negative breast cancer -Full oncological history in consult HPI -She has continued on treatment with eribulin, and completed cycle 5 on 05/04/24. -In patient had positive tumor marker response, overall stable imaging. CT AP on 05/09/24 reported suboptimal evaluation due to lack of IV the contrast. Large hypodense abnormalities seen in the anterior left lobe of the liver increased since prior comparison, no dimensions documented. Patient has known metastatic disease in the liver, known lymphadenopathy, known bony metastatic disease, though this was previously relatively limited. She did have slight increase in her tumor markers on recheck in March, plan was to cont treatment and recheck scans -Ca 15.3 in March was 199, now 605, Ca 27.29 in march was 303, now 743. Increase in tumor markers, along with reported worsening of known disease on CT AP, consistent with disease progression, however, patient has had multiple delays in treatment due repeat hospitalizations, so will consider continuing on eribulin once patient has adequately recovered and PS/anxiety is improved -PET CT was missed due to last hospitalization and is rescheduled for 05/26/24 Had a long conversation with patient regarding reported disease progression, prognosis, treatment, and goals of care. At this time patient is not wanting hospice. Although her respiratory status has been poor requiring multiple hospital admissions, prior to admission pt has been able to care for herself and ambulate at home. Goal is to keep pain controlled, manage anxiety, and improve PS, so treatment can be restarted, however, at this time treatment will be on hold until symptoms are better controlled -Palliative care and home health care referrals have been placed. Discussed POC with SW and admitting team today. Will see how patient's anxiety and pain is controlled over the next 24 hours, with hopes to discharge in the next 24-48 hrs. Pt agreeable with plan
--- NOTE | 2024-05-19 16:28 | P.PN ---
Subjective Progress Note Date: 05/19/24 This is a pleasant 68-year-old female with history of metastatic triple negative breast cancer with liver lung and bone metastasis. Patient does have a Pleurx catheter in place to the left chest wall for a reoccurring pleural effusion however she has had no drainage over the last 3 weeks from this. Patient was just admitted and discharged from the hospital 2 days ago for shortness of breath found to have a moderate-sized pleural effusion on the right side and underwent thoracentesis with 1 L of fluid drained. Patient was monitored and her oxygenation and saturations had improved. Patient was discharged home and recommended to follow-up closely with her oncologist for a PET scan and restaging of her breast cancer. Imaging that hospital stay also reveals disease progression and patient will need to be reevaluated by oncology for a treatment change. Patient returns to the hospital after 2 days states that she feels significantly anxious and short of breath. Her chest x-ray shows small danay ateral pleural effusions, sodium level of 131. She is not having any chest pain, not having any fever or chills. No nausea vomiting or diarrhea. She has had poor oral intake. We will check a proBNP and patient may benefit from IV Lasix. She will continue on fentanyl patch as well as increased dose of Cromwell tens every 4 hours for pain management. 05/16/2024 Seen in follow-up on the medical floor. She is sitting up at the side of the bed with family at the bedside. Patient has having increased anxiety and Ativan has been increased by oncology. Patient will be taken off the fentanyl patch at this time secondary to feelings of jitteriness. Patient does continue on Cromwell 10 mg every 4 hours as needed for pain. Patient developed a new mid back pain with no radiation rating about an 8 out of 10. We did a thoracic x-ray reveals small bilateral pleural effusions there is no acute compression fracture but evaluation was limited due to severe demineralization. If pain continues we would recommend a thoracic spine CT scan. Blood work today reveals a white blood cell count of 2.41, hemoglobin 10.7, sodium level of 136, potassium 4.2, BUN of 8, creatinine of 0.3. 05/17/2024 Patient evaluated in follow up today. Patient has been continued on ativan every 4 hours. Continues to report increased anxiety wrestlessnes and insomnia. Pending evaluation and recommendations by psychiatry today. Continues on oral norco q4hour for pain management. 05/18/2024 Patient is evaluated today in follow up on the medical floor. Patient has continued to report significant thoracic back pain with prior PET scan in December showing uptake at T2 and T5. Patient was unable to work with physical therapy today without worsening back pain. Patient has been started on oral oxycodone by oncology. Patient was offered thoracic MRI Vs. bone scan does not feel she is able to lye flat for any further testing due to her shortness of breath. 05/19/2024 Patient is evaluated today in follow-up on the medical floor. Patient reports resolution of her thoracic back pain with the addition of Oxycodone. Not quite ready for discharge. REVIEW OF SYSTEMS: CONSTITUTIONAL: No fever, no malaise, no fatigue. HEENT: No recent visual problems or hearing problems. Denied any sore throat. CARDIOVASCULAR: No chest pain, orthopnea, PND, no palpitations, no syncope. PULMONARY: Reports shortness of breath, no cough, no hemoptysis. GASTROINTESTINAL: No diarrhea, no nausea, no vomiting, no abdominal pain. NEUROLOGICAL: No headaches, no weakness, no numbness. PHYSICAL EXAMINATION: GENERAL: The patient is alert and oriented x3, not in any acute distress. Well developed, well nourished. HEENT: Pupils are round and equally reacting to light. EOMI. No scleral icterus. No conjunctival pallor. Normocephalic, atraumatic. No pharyngeal erythema. No thyromegaly. CARDIOVASCULAR: S1 and S2 present. No murmurs, rubs, or gallops. PULMONARY: Chest is clear to auscultation, no wheezing or crackles. ABDOMEN: Soft, nontender, nondistended, normoactive bowel sounds. No palpable organomegaly. MUSCULOSKELETAL: No joint swelling or deformity. EXTREMITIES: No cyanosis, clubbing, or pedal edema. NEUROLOGICAL: Gross neurological examination did not reveal any focal deficits. SKIN: No rashes. Assessment and Plan -Shortness of breath may be secondary to pleural effusion. -Hyponatremia improved with dose of IV lasix -Mid back pain, could be arthritic pain there is demineralization noted on xray, no acute compression fracture noted on xray. Continue with pain management at this time. 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 Has pleurex catheter left lung. -Neutropenia improving from prior admission -Oxygen dependent COPD without any acute exacerbation. -Severe protein calorie malnutrition from cancer, Continue on marinol. GI prophylaxis DVT prophylaxis Full Code Plan -Pulmonary on consult patient is status post thoracentesis on the right side previous admission, was sent for cytology which reveals metastatic ductal mammary carcinoma. -Patient has been started on oral oxycodone for improved pain control -Offered thoracic MRI vs. bone scan she feels she is unable to tolerate lying flat for procedure -Oncology consultation -Psychiatry was consulted for increased anxiety patient also reports difficulty sleeping; has been started on seroquel continue with the ativan. Zyprexa discontinued. Patient felt the buspar made her more anxious. Has been stopped. PT/OT consultation Repeat blood work in the AM Possible home in the next 24 hours. The impression and plan of care has been dictated by Chelsea Rhodes, Nurse Practitioner as directed. Dr. Almaz MD I have performed a history and physical examination and medical decision making of this patient, discussed the same with the dictator, and agree with the dictators assessment and plan as written, documented as a scribe. Based on total visit time, I have performed more than 50% of this visit. Objective - Vital Signs Vital signs: Vital Signs Temp 98.4 F 05/19/24 13:52 Pulse 94 05/19/24 16:05 Resp 18 05/19/24 13:52 BP 109/73 05/19/24 13:52 Pulse Ox 97 05/19/24 13:52 FiO2 Intake & Output 05/18/24 05/19/24 05/19/24 18:59 06:59 18:59 Intake Total 100 Balance 100 Weight 35.38 kg Intake: Oral 100 Other: Voiding Method Bedside Commode Bedside Commode # Voids 1 2 - Labs CBC & Chem 7: 05/19/24 04:47 05/19/24 04:50 Labs: Abnormal Lab Results - Last 24 Hours (Table) 05/19/24 05/19/24 Range/Units 04:47 04:50 RBC 3.75 L (4.10-5.20) X 10*6/uL Hgb 11.7 L (12.0-15.0) g/dL Hct 35.3 L (37.2-46.3) % RDW 15.9 H (11.5-14.5) % Immature Gran # 0.07 H (0.00-0.04) X 10*3/uL Eosinophils # 0.01 L (0.04-0.35) X 10*3/uL Sodium 132 L (135-145) mmol/L BUN 7.9 L (9.0-27.0) mg/dL Creatinine 0.4 L (0.6-1.5) mg/dL Microbiology - Last 24 Hours (Table) 05/17/24 05:07 Blood Culture - Preliminary Blood 05/17/24 05:40 Blood Culture - Preliminary Blood Assessment and Plan Time with Patient: Less than 30
[2024-05-20 07:37] VITALS: RESP 17
[2024-05-20] MEDS: QUEtiapine 25 MG TAB PO PRN (13:17)
--- NOTE | 2024-05-20 13:47 | P.PN ---
Subjective Progress Note Date: 05/20/24 The patient is a 68-year-old female with past medical history significant for metastatic breast cancer. She follows with her oncologist Dr. eDe. She has had recurrent bilateral pleural effusions. She did have a left-sided Pleurx catheter inserted by cardiothoracic surgery on 01/14/2024. 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 Back in January, she did have a recurrent moderate to large sized right-sided pleural effusion, and did undergo thoracentesis. She was recently admitted here in May 08, 2024 for right-sided chest discomfort other right-sided thoracentesis on 05/11/2024 with another 1 L of fluid removed. Cytology is pending. He was discharged home on . Pain control has been her main issue. She was in the ER again last night with complaints of anxiety and felt as though she was having a panic attack. She felt as though she was having a reaction to the [place] which she is taking every 4 hours in addition to a fentanyl patch. Chest x-ray reveals only small bilateral pleural effusions. Left-sided Pleurx catheter in place. Right subclavian Port-A-Cath in place. She is seen today in consultation on the regular medical floor. She is currently sitting up in bed. Awake and alert in no acute distress. She is maintaining O2 saturations in the 90s on 4 L/min per nasal cannula. She remains quite frail and cachectic. Her appetite is poor. White count 1.5. Hemoglobin 13.3. Platelets 100,000. Sodium 131. Potassium 4.1. Bicarb 24. BUN 8. Creatinine 0.29. AST 47. ALT 24. Albumin 3.3. Total protein 5.5. She is continued on needed for her anxiety. She remains on bronchodilators. Fentanyl patch in place. Remains on IV diuretics. Heparin for DVT prophylaxis. Continued on Marinol. The patient is seen today May 16, 2024 in follow-up on the regular medical floor. She is currently sitting up at the bedside. Awake and alert in no acute distress. She is maintaining good O2 saturations in the 90s on 3 L/min per n memo cannula. She has been afebrile. Hemodynamically stable. Still having ongoing issues with back pain. Thoracic x-ray revealed no acute compression fracture. Evaluation limited due to severe demineralization. Small bilateral pleural effusions. White count 2.4. Hemoglobin 10.7. Platelets 163. Sodium 136. Potassium 4.2. Bicarb 27. BUN 5. Creatinine 0.3. Glucose 93. Control. Ativan for anxiety. The patient is seen today May 17, 2024 in follow-up on the regular medical floor. She is awake and alert in no acute distress. Sitting up in bed. A little more relaxed today compared to yesterday. Less anxious. Still with some back pain. Denies any worsening shortness of breath, cough or congestion. She is maintaining O2 saturations in the 90s on 3 L/min per nasal cannula. She remains on bronchodilators. Heparin for DVT prophylaxis. Her appetite is fair. The patient is seen today May 18, 2024 in follow-up on the regular medical floor. She is sitting up in bed. Awake and alert in no acute distress. A little less anxious again today. Feeling better. Denies any shortness of breath, cough or congestion. She is maintaining good O2 saturations in the 90s on 3 L/min per nasal cannula. She is afebrile. Hemodynamically stable. She is continued on DuoNeb inhalations. Heparin for DVT prophylaxis. Anxiety medications being adjusted per psychiatry. White count 4.3. Hemoglobin 11.2. Platelets 164. Sodium 134. Potassium 4.7. Bicarb 25. BUN 9. Creatinine 0.4. Glucose 82. The patient is seen today May 19, 2024 in follow-up on the regular medical floo r. She is sitting up at the bedside. Awake and alert in no acute distress. Still having some ongoing issues with back pain. Denies any worsening shortness of breath, cough or congestion. Maintaining O2 saturations in the 90s on 3 L/min per nasal cannula. White count 5.8. Hemoglobin 11.7. Platelets 165. Sodium 132. Potassium 4.7. Bicarb 26. BUN 8. Creatinine 0.4. Glucose 94. Blood cultures revealed no growth. She remains on DuoNeb inhalations. Heparin for DVT prophylaxis. Anxiety medications being adjusted per psychiatry. the patient is seen today 05/20/2020 for follow-up on the regular medical floor. She is awake and alert in no acute distress. Feeling better everyday. Less anxious. Less shortness of breath. She is maintaining good O2 saturations in the 90s on 3 liters per minute per nasal cannula. Blood cultures reveal no growth. White count 5.4. Hemoglobin 11.7. Platelets 165. Sodium 132. Potassium 4.7. Bicarb 26. BUN 8. Creatinine 0.4. Glucose 94. She is continued on bronchodilators. Heparin for DVT prophylaxis. Objective - Vital Signs Vital signs: Vital Signs Temp 98.2 F 05/20/24 07:02 Pulse 106 H 05/20/24 12:24 Resp 17 05/20/24 07:02 BP 122/77 05/20/24 07:02 Pulse Ox 97 05/20/24 07:02 FiO2 Intake & Output 05/19/24 05/20/24 05/20/24 18:59 06:59 18:59 Intake Total 100 Balance 100 Weight 35.38 kg Intake: Oral 100 Other: Voiding Method Bedside Commode Bedside Commode Bedside Commode # Voids 2 1 - Exam GENERAL EXAM: Alert, frail, 68-year-old female, on 3 L/min nasal cannula, in no apparent distress. HEAD: Normocephalic and atraumatic EYES: Normal reaction of pupils, equal size. NOSE: Clear with pink turbinates. THROAT: No erythema or exudates. NECK: No masses, no JVD. CHEST: No chest wall deformity. Right chest Mediport. Left Pleurx catheter insertion site clean, dry, without erythema or drainage LUNGS: Equal air entry with diminished right lung sounds, minimal inspiratory crackles in the left base. CVS: S1 and S2 normal with no audible murmur, regular rhythm. No extra heart sounds ABDOMEN: No hepatosplenomegaly, active bowel sounds, no guarding or rigidity. SPINE: No scoliosis or deformity SKIN: No rashes CENTRAL NERVOUS SYSTEM: No focal deficits, tone is normal in all 4 extremities. EXTREMITIES: There is no peripheral edema, clubbing, or cyanosis. Peripheral pulses are intact. - Labs CBC & Chem 7: 05/19/24 04:47 05/19/24 04:50 Labs: Microbiology - Last 24 Hours (Table) 05/17/24 05:07 Blood Culture - Preliminary Blood 05/17/24 05:40 Blood Culture - Preliminary Blood Assessment and Plan Assessment: Anxiety and panic feelings. Psychiatry consulted, medications being adjusted Recent admission for shortness of breath and pain control discharged on 05/12/2024 Metastatic breast cancer, most recent PET scan performed on 12/03/2023 identified new foci of uptake within the mediastinum and hilar lymph nodes, as well as new foci within the liver, osseous lesions including thoracic vertebral bodies and right ilium and left anterior rib and, as well as persistent uptake in the distal sigmoid colon, these findings are suspicious for disease progression and metastasis. She also has increased tumor marker levels as well. She was to have a follow-up PET scan and be restaged but has been hospitalized twice since then Pancytopenia, secondary to systemic chemotherapy treatments Recurrent moderate to large right-sided pleural effusion, most recent right- sided thoracentesis done 05/11/2024, and a total of 1 L of fluid was removed. Cytology pending. Previous right-sided thoracentesis performed on 02/24/2024. History of malignant left-sided pleural effusion, requiring frequent previous thoracentesis, and eventual Pleurx catheter insertion on 01/14/2024. Patient has been previously draining her catheter weekly, however, over the last 2 weeks no output was noted. Acute on chronic dyspnea, secondary to above History of left-sided mastectomy Severe chronic obstructive pulmonary disease, most recent FEV1 47% of predicted, stable Chronic hypoxemic respiratory failure, maintained on 1-2 L/min nasal cannula while at home Former tobacco smoker, quitting approximately 2 months ago Hypothyroidism History of meningitis History of ovarian cyst Severe protein calorie malnutrition Plan: The patient was seen and evaluated Medications and labs reviewed Continue the current treatment plan Patient has home oxygen in place Continue bronchodilators Heparin for DVT prophylaxis Plan is for home with home care at discharge I have personally seen and examined the patient, performed the documentation and the assessment and plan as written. Number of minutes spent on the visit: 10.
--- NOTE | 2024-05-20 14:19 | P.PN ---
Subjective Progress Note Date: 05/20/24 At today's visit patient is reporting she had worsening SOB overnight with associated anxiety. Breathing and anxiety better this morning. She feels that ativan dose is not strong enough. Encouraged pt to use seroquel prn for her anxiety as prescribed by arya, and can use this in between doses of ativan if needed. She states seroquel is helping at night to calm anxiety and is getting a good night of sleep. Pain better controlled on oxycodone, denies pain during visit. SPO2 97% on 3L Objective - Vital Signs Vital signs: Vital Signs Temp 98.2 F 05/20/24 07:02 Pulse 106 H 05/20/24 12:24 Resp 17 05/20/24 07:02 BP 122/77 05/20/24 07:02 Pulse Ox 97 05/20/24 07:02 FiO2 Intake & Output 05/19/24 05/20/24 05/20/24 18:59 06:59 18:59 Intake Total 100 Balance 100 Weight 35.38 kg Intake: Oral 100 Other: Voiding Method Bedside Commode Bedside Commode Bedside Commode # Voids 2 1 - Constitutional General appearance: Present: no acute distress, thin - EENT ENT: Present: hearing grossly normal - Respiratory Details: breathing mildly labored - Cardiovascular Details: skin warm and dry - Integumentary Integumentary: Absent: cyanotic - Musculoskeletal Musculoskeletal: Present: generalized weakness - Psychiatric Psychiatric: Present: A&O x's 3 - Labs CBC & Chem 7: 05/19/24 04:47 05/19/24 04:50 Labs: Microbiology - Last 24 Hours (Table) 05/17/24 05:07 Blood Culture - Preliminary Blood 05/17/24 05:40 Blood Culture - Preliminary Blood Assessment and Plan (1) Dyspnea Current Visit: Yes Status: Acute Priority: High Code(s): R06.00 - DYSPNEA, UNSPECIFIED SNOMED Code(s): 177928721 (2) Cancer associated pain Current Visit: Yes Status: Acute Priority: High Code(s): G89.3 - NEOPLASM RELATED PAIN (ACUTE) (CHRONIC) SNOMED Code(s): 50267973729755 (3) Metastasis from breast cancer Current Visit: Yes Status: Acute Priority: High Code(s): C79.9 - SECONDARY MALIGNANT NEOPLASM OF UNSPECIFIED SITE; C50.919 - MALIGNANT NEOPLASM OF UNSP SITE OF UNSPECIFIED FEMALE BREAST SNOMED Code(s): 144918786 (4) Pleural effusion Current Visit: Yes Status: Acute Priority: High Code(s): J90 - PLEURAL EFFUSION, NOT ELSEWHERE CLASSIFIED SNOMED Code(s): 60422811 (5) Anxiety Current Visit: Yes Status: Acute Priority: High Code(s): F41.9 - ANXIETY DISORDER, UNSPECIFIED SNOMED Code(s): 82290817 Plan: SOB, recurrent pleural effusion: Presented to the emergency room with worsening shortness of breath over the last day -Upon presentation chest x-ray revealed small bilateral pleural effusions. Pulmonary vascular congestion. -Patient was given IV Lasix. Pulmonary consulted and bronchodilators ordered. Patient is afebrile, 99% on 4 L nasal cannula. -Previous left sided thoracentesis with cytology was positive for malignancy. She had required additional thoracenteses, therefore left pleurx drain was pl aced. Has had no drainage from pleurx over the last 5 weeks. Was recently discharged from hospital and had right thoracentesis with 1.1 L removed during that admission, cytology positive for metastatic ductal mammary carcinoma -No plan for repeat thoracentesis at this time Anxiety: -Acute on chronic. Worsens with acute symptoms. Xanax not helping manage symptoms -I do believe that a component of her readmissions are due to her significant issues with anxiety regarding her health and cancer diagnosis -Xanax d/c. Changed to Ativan 1mg q4hrs prn -Arya consulted. Started buspar TID, and seroquel at bedtime. Appreciate recommendations -Patient feels buspar has worsened anxiety, has since been d/c. Continues on seroquel and ativan, anxiety does appear to have improved since admission -Palliative care consulted, will provide additional outpt resources/services -Will continue to monitor symptoms Intractable pain: -Persisting left lateral chest wall and lower thoracic back pain. Known mets to T2 nd T5, but pain currently in lower thoracic spine. -She reported intolerance to fentanyl patch, so med was d/c. Continued on norco 10mg prn, but was not having good pain control -Dresher discontinued, changed to oxycodone IR 15mg. -Thoracic spine x-ray negative for acute compression fracture. Discussed with patient about obtaining MRI of thoracic spine vs bone scan, but she does not think she can tolerate laying flat for exams at this time. PET CT is scheduled for 05/26 so will get further evaluation at that time. If further metastatic disease noted within thoracic spine, will refer patient to rad onc for palliative RT -Pain much better controlled on oxycodone. Script for oxycodone IR 15mg has been sent from clinic to her pharmacy on file Metastatic triple negative breast cancer -Full oncological history in consult HPI -She has continued on treatment with eribulin, and completed cycle 5 on 05/04/24. -In patient had positive tumor marker response, overall stable imaging. CT AP on 05/09/24 reported suboptimal evaluation due to lack of IV the contrast. Large hypodense abnormalities seen in the anterior left lobe of the liver increased since prior comparison, no dimensions documented. Patient has known metastatic disease in the liver, known lymphadenopathy, known bony metastatic disease, though this was previously relatively limited. She did have slight increase in her tumor markers on recheck in March, plan was to cont treatment and recheck scans -Ca 15.3 in March was 199, now 605, Ca 27.29 in march was 303, now 743. Increase in tumor markers, along with reported worsening of known disease on CT AP, consistent with disease progression, however, patient has had multiple delays in treatment due repeat hospitalizations, so will consider continuing on eribulin once patient has adequately recovered and PS/anxiety is improved -PET CT was missed due to last hospitalization and is rescheduled for 05/26/24 Had a long conversation with patient regarding reported disease progression, prognosis, treatment, and goals of care. At this time patient is not wanting hospice. Although her respiratory status has been poor requiring multiple hospital admissions, prior to admission pt has been able to care for herself and ambulate at home. Goal is to keep pain controlled, manage anxiety, and improve PS, so treatment can be restarted, however, at this time treatment will be on hold until symptoms are better controlled -Palliative care and home health care referrals have been placed. Discussed POC with admitting team. Plan is for discharge today
[2024-05-20 14:48] VITALS: BP 109/74; TEMP 98.6
[2024-05-20 16:06] VITALS: PULSE 139
--- NOTE | 2024-05-23 13:18 | CDI ---
Documentation Clarification Form Date: 05/23/2024 01:09:40 PM From: Nayla Sloan Phone: Admit Date: 05/19/2024 08:13:00 AM Patient Name: April Canchola Visit Number: [id number] Discharge Date: 05/20/2024 06:43:00 PM ATTENTION: The Clinical Documentation Specialists (CDI) and [facility] Coding Staff appreciate your assistance in clarifying documentation. Please respond to the clarification below the line at the bottom and electronically sign. The CDI & [facility] Coding staff will review the response and follow-up if needed. Please note: Queries are made part of the Legal Health Record. If you have any questions, please contact the author of this message via ITS. Dr. Palomo Muse Your patient has Acute on chronicdyspnea and chronic hypoxemic respiratory failure. Based on this information and the findings below, is there an additional diagnosis that is clinically appropriate for this patient? History/Risk Factors: 68yo F, Lt Breast cancer w multi mets sp mastectomy, COPD, CHRF on O2, hypothyroidism, severe PCM Tobacco use: Former, quitting appr 2 months ago Home oxygen: maintained on 1-2 L/min nasal cannula while at home Clinical Indicators: Vital signs: most recent FEV1 47% of predicted Pulse oximetry: O2 Sat by Pulse 99 97 98 Treatment: [id number] in the SVC. Small bilateraleffusions. Noplans forthoracentesis. Titrate down the FiO2 as tolerated. Assure adequate anxiolytics. Assure adequatepaincontrol. Prognosis remains guarded Is there an additional diagnosis that is clinically appropriate for this patient? [ x] Acute on Chronic Hypoxic Respiratory Failure [ ] No additional diagnosis/not clinically significant [ ] Other Diagnosis, please specify [ ] Unable to determine (Template Last Revised: November 2023) MTDD
--- NOTE | 2024-05-26 06:15 | P.DS ---
Providers Date of admission: 05/19/24 08:13 Expected date of discharge: 05/20/24 Attending physician: Katherine Hernandez Consults: 05/15/24 02:14 Consult Physician Routine Consulting Provider: Albina Palomo Consult Reason/Comments: dyspnea Do you want consulting provider notified?: Yes 05/15/24 10:15 Consult Physician Routine Consulting Provider: Isra Dee Consult Reason/Comments: metastatic breast cancer Do you want consulting provider notified?: Yes 05/16/24 16:23 Consult Physician Routine Consulting Provider: Psychiatry - [facility] Psychiatry Consult Reason/Comments: severe anxiety, cancer Dx, needing better anxiety/insomnia med regimen Do you want consulting provider notified?: Yes Primary care physician: Roney Lema Hospital Course: Final diagnosis -Shortness of breath may be secondary to pleural effusion. -Acute on chronic hypoxic respiratory failure -Hyponatremia improved with dose of IV lasix -Mid back pain, could be arthritic pain there is demineralization noted on xray, no acute compression fracture noted on xray. Continue with pain management at this time. 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 Has pleurex catheter left lung. -Neutropenia improving from prior admission -Oxygen dependent COPD without any acute exacerbation. -Severe protein calorie malnutrition from cancer, Continue on marinol. GI prophylaxis DVT prophylaxis Full Code Discharge disposition Patient is being discharged in a stable condition with guarded prognosis to home. Patient will follow-up with Dr. Lema in the outpatient setting upon discharge. Patient is to continue with outpatient follow-up with oncology as scheduled. Total time taken is greater than 35 minutes. Hospital course This is a 68-year-old female who was recently admitted with increasing shortness of breath secondary to fluid. Patient does have a pigtail catheter on the left for chronic recurrent pleural effusion had worsening pleural effusion on the right status post thoracentesis. Patient being followed by oncology in the outpatient setting. Patient is being arranged for home with palliative care and will follow-up with oncology outpatient. Patient chronically wears oxygen and continues to report shortness of breath with minimal exertion. Overall prognosis is extremely guarded at this time. Patient also with severe anxiety and uncontrolled pain. Patient has been cleared for outpatient follow-up and will be discharged today. Plans on returning home with palliative care. Currently no reports of chest pain, shortness of breath, or palpitations. Patient is afebrile. No reports of nausea or vomiting and patient is tolerating diet. Patient will be discharged home today. Guarded prognosis and high risk f or readmissions given significant comorbidities. Physical exam: Gen: This is a 68-year-old female who is awake, alert and oriented x 3, extremely anxious, thin built, cachectic, ill-appearing, significant muscle wasting noted throughout HEENT: Head is atraumatic, normocephalic. Pupils equal, round. Sclerae is anicteric. NECK: Supple. No JVD. No lymphadenopathy. No thyromegaly. LUNGS: Diminished breath sounds bilaterally with scattered rhonchi. No intercostal retractions. HEART: S1, S 2 are muffled ABDOMEN: Soft. Thin, scaphoid bowel sounds are present. No masses. No tenderness. EXTREMITIES: No pedal edema. No calf tenderness. Significant muscle wasting noted on upper and lower extremities NEUROLOGICAL: Patient is awake, alert and oriented x3. Cranial nerves 2 through 12 are grossly intact. Please refer to medication reconciliation sheet for a list of medications. The impression and plan of care has been dictated by Bessie Gomez, Nurse Practitioner as directed. MD Angela I have performed a history and examination and MDM of this patient, discussed the same with the dictator, and agree with the dictator's assessment and plan as written ,documented as a scribe. Based on total visit time, I have performed more than 50% of the visit. Patient Condition at Discharge: Fair Plan - Discharge Summary Discharge Rx Participant: No New Discharge Prescriptions: New Ipratropium-Albuterol Nebulize [Duoneb 0.5 mg-3 mg/3 ml Soln] 3 ml INHALATION RT-QID each QUEtiapine [SEROquel] 12.5 mg PO BID PRN #30 tab PRN Reason: Severe Anxiety QUEtiapine [SEROquel] 25 mg PO HS #30 tab Continue polyethylene glycoL 3350 [Miralax] 17 gm PO BID PRN PRN Reason: Constipation Docusate [Colace] 200 mg PO BID droNABinol [Marinol] 2.5 mg PO AC-BID ALPRAZolam [Xanax] 0.5 mg PO TID PRN PRN Reason: Anxiety OLANZapine [ZyPREXA] 2.5 mg PO HS PRN PRN Reason: Nausea fentaNYL 25MCG/HR PATCH [Duragesic 25MCG/HR] 1 patch TRANSDERM Q72H patch Famotidine [Pepcid] 20 mg PO BID #60 tab Sennosides-Docusate Sodium [Senokot-S] 1 tab PO BID Albuterol Sulfate [Ventolin HFA] 2 puff INHALATION RT-Q6H PRN PRN Reason: Shortness Of Breath Or Wheezing Levothyroxine Sodium [Synthroid] 88 mcg PO DAILY Ondansetron [Zofran] 4 mg PO QID PRN PRN Reason: Nausea LORazepam [Ativan] 1 tab PO BID HYDROcodone/APAP 10-325MG [[place] 10-325] 1 tab PO Q4HR PRN PRN Reason: Pain Discharge Medication List Albuterol Sulfate [Ventolin HFA] 2 puff INHALATION RT-Q6H PRN 01/01/24 [History] Docusate [Colace] 200 mg PO BID 02/24/24 [History] Levothyroxine Sodium [Synthroid] 88 mcg PO DAILY 02/24/24 [History] polyethylene glycoL 3350 [Miralax] 17 gm PO BID PRN 02/24/24 [History] Ondansetron [Zofran] 4 mg PO QID PRN 03/16/24 [History] LORazepam [Ativan] 1 tab PO BID 04/27/24 [History] ALPRAZolam [Xanax] 0.5 mg PO TID PRN 05/08/24 [History] OLANZapine [ZyPREXA] 2.5 mg PO HS PRN 05/08/24 [History] droNABinol [Marinol] 2.5 mg PO AC-BID 05/08/24 [History] Famotidine [Pepcid] 20 mg PO BID #60 tab 05/12/24 [Rx] fentaNYL 25MCG/HR PATCH [Duragesic 25MCG/HR] 1 patch TRANSDERM Q72H patch 05/12/24 [Rx] HYDROcodone/APAP 10-325MG [[place] 10-325] 1 tab PO Q4HR PRN 05/15/24 [History] Sennosides-Docusate Sodium [Senokot-S] 1 tab PO BID 05/15/24 [History] Ipratropium-Albuterol Nebulize [Duoneb 0.5 mg-3 mg/3 ml Soln] 3 ml INHALATION RT-QID each 05/20/24 [Rx] QUEtiapine [SEROquel] 12.5 mg PO BID PRN #30 tab 05/20/24 [Rx] QUEtiapine [SEROquel] 25 mg PO HS #30 tab 05/20/24 [Rx] Follow up Appointment(s)/Referral(s): Isra Dee [STAFF PHYSICIAN] - 1 Week [facility], [NON-STAFF] - As Needed ([facility] will call you to schedule your in home nursing, physical therapy, and occupational therapy visits. ) Care,[facility] [NON-STAFF] - As Needed ([facility] will call you to schedule your Palliative Care visits. ) Roney Lema DO [Primary Care Provider] - 1-2 days Patient Instructions/Handouts: Pleural Effusion (DC), Dyspnea (DC) Activity/Diet/Wound Care/Special Instructions: Activity Limited until follow-up follow-up with primary care provider on discharge Follow-up with oncology outpatient Continue taking medications as prescribed Discharge Disposition: HOME WITH HOME HEALTH SERVICES
== END 2024-05-20 18:43 | disposition home health service (06) | DRG 180 ==
LOC: EC 22:27 → 4SSUR 05-15 02:14 → OBSVTOIN 05-19 08:13
PROVIDERS: ADMIT Hospitalist; ATTEND Hospitalist
DX: C78.02 Secondary malignant neoplasm of left lung (principal); D61.810 Antineoplastic chemotherapy induced pancytopenia; E43 Unspecified severe protein-calorie malnutrition; J96.21 Acute and chronic respiratory failure with hypoxia; C79.51 Secondary malignant neoplasm of bone; C78.5 Secondary malignant neoplasm of large intestine and rectum; J96.11 Chronic respiratory failure with hypoxia; E87.1 Hypo-osmolality and hyponatremia; J91.0 Malignant pleural effusion; C78.7 Secondary malignant neoplasm of liver and intrahepatic bile duct; Z68.1 Body mass index [BMI] 19.9 or less, adult; C50.112 Malignant neoplasm of central portion of left female breast; J44.9 Chronic obstructive pulmonary disease, unspecified; E88.A Wasting disease (syndrome) due to underlying condition; K12.31 Oral mucositis (ulcerative) due to antineoplastic therapy; Z99.81 Dependence on supplemental oxygen; E03.9 Hypothyroidism, unspecified; G89.3 Neoplasm related pain (acute) (chronic); T45.1X5A Adverse effect of antineoplastic and immunosuppressive drugs, initial encounter; F06.4 Anxiety disorder due to known physiological condition; G47.00 Insomnia, unspecified; F41.0 Panic disorder [episodic paroxysmal anxiety]; F41.1 Generalized anxiety disorder; Z79.891 Long term (current) use of opiate analgesic; Z17.1 Estrogen receptor negative status [ER-]; Z79.890 Hormone replacement therapy; Z79.899 Other long term (current) drug therapy; Z86.61 Personal history of infections of the central nervous system; Z80.0 Family history of malignant neoplasm of digestive organs; Z90.12 Acquired absence of left breast and nipple; Z87.891 Personal history of nicotine dependence; Z87.42 Personal history of other diseases of the female genital tract
CPT/HCPCS: 36415; 71046; 72070; 80048; 80053; 83735; 83880; 85025; 85610; 85730; 87040; 93005; 94640; 94760; 96374; 96375; 99285

== ENCOUNTER → 2024-05-26 | Outpatient (CLI) | payer MEDICARE, OTHER ==
--- NOTE | 2024-06-01 14:21 | PE ---
EXAMINATION TYPE: PET CT fusion skull to thigh DATE OF EXAM: 05/26/2024 COMPARISON: CT abdomen pelvis 05/08/2024 Prior PET/CT: 12/03/2023 HISTORY: Breast cancer TECHNIQUE: Following the intravenous administration of 8.73 mCi of F-18 FDG, whole body images are p erformed from the skull base to the midthigh. Images are reviewed on the computer in the coronal, ax ial, and sagittal planes. Reconstructed rotating images are created on independent workstation and r eviewed on the computer. A localization and attenuation correction CT is performed in conjunction w ith the PET scan. DLP: 122.21 mGycm SCAN: Subsequent Blood glucose: 80 mg/dL Average Mediastinum SUV: 1.39 Average Liver SUV: 1.79 FINDINGS: NECK: No suspicious uptake THORAX: There is a focus of uptake within the anterior lingula, image 99, SUV 6.78. Previous suspected hilar adenopathy remains faintly hyperintense. SUV in the range of slightly greate r than 2. ABDOMEN: Large areas of uptake are within the anterior left lobe liver and medial right lobe liver. S cattered smaller foci of uptake are within the liver. PELVIS: No intraperitoneal abnormal uptake OSSEOUS STRUCTURES: There is extensive patchy uptake within osseous structures including cervical tho racic and lumbar spine. This includes vertebral bodies and posterior elements. Uptake is noted in the right medial scapular border uptake is in the right coracoid process and left anterior glenoid. Scat tered milder uptake is within ribs. There is uptake within the medial left clavicle. A mid left scapu lar foci of uptake is present. Left sternal uptake present, image 87. Inferior right sternal uptake p resent. Right medial ileal uptake at present. Multiple foci are present within the ilium and sacrum. Uptake is near the bilateral acetabula. There is a focus of uptake along the left pubic symphysis. Th ere may be a small focus of radiotracer at the skull base, image 15, SUV 4.77. LOCALIZATION CT: There is a moderate-sized right pleural effusion. Some loculated effusion may be wit hin the major fissure on the left. COMPARISON: There is marked interval change with uptake through the osseous structures. Uptake within the liver appears increased. Uptake within the lingula may have been present previously. There may b e some faint persistence of suspected mediastinal and hilar adenopathy. IMPRESSION: 1. Extensive increased osseous metastasis within the axial skeleton but also within the visualized pe lvis, scapulae, and possibly right skull base. 2. Increasing uptake through the left liver and medial right lobe liver. 3. Small foci of uptake may be within the lingula. 4. Previous suspected mediastinal lymphadenopathy remains faintly intense.
== END | disposition home or self-care (01) ==
LOC: RADPETMAIN 09:56
PROVIDERS: ATTEND Internal Medicine Hematology & Oncology
DX: C79.51 Secondary malignant neoplasm of bone (principal); C50.812 Malignant neoplasm of overlapping sites of left female breast; L27.1 Localized skin eruption due to drugs and medicaments taken internally; R19.7 Diarrhea, unspecified; Z71.3 Dietary counseling and surveillance; Z17.1 Estrogen receptor negative status [ER-]
CPT/HCPCS: 78815; A9552

== ENCOUNTER 2024-05-29 09:13 | Inpatient (IN) | payer MEDICARE, OTHER ==
--- NOTE | 2024-05-29 09:53 | ED ---
General Adult HPI - General Chief complaint: Shortness of Breath Stated complaint: GIULIANA Time Seen by Provider: 05/29/24 09:23 Source: patient, EMS, RN notes reviewed Mode of arrival: EMS Limitations: no limitations - History of Present Illness Initial comments: Patient is a 68-year-old female present to the emergency department with concerns with difficulty in breathing. Patient has chronic dyspnea and pleural effusions. Patient states it feels worse over the past few days. Patient has known metastatic breast cancer, stage IV with disease in the pleurisy of her lungs. Patient does have a drain tube on the left side. Patient also has chest discomfort which is chronic, slightly worse than normal. Patient request medication for pain and anxiety. - Related Data Home Medications Medication Instructions Recorded Confirmed Albuterol Sulfate [Ventolin HFA] 2 puff INHALATION RT-Q6H PRN 01/01/24 05/15/24 Docusate [Colace] 200 mg PO BID 02/24/24 05/15/24 Levothyroxine Sodium [Synthroid] 88 mcg PO DAILY 02/24/24 05/15/24 polyethylene glycoL 3350 [Miralax] 17 gm PO BID PRN 02/24/24 05/15/24 Ondansetron [Zofran] 4 mg PO QID PRN 03/16/24 05/15/24 LORazepam [Ativan] 1 tab PO BID 04/27/24 05/15/24 ALPRAZolam [Xanax] 0.5 mg PO TID PRN 05/08/24 05/15/24 OLANZapine [ZyPREXA] 2.5 mg PO HS PRN 05/08/24 05/15/24 droNABinol [Marinol] 2.5 mg PO AC-BID 05/08/24 05/15/24 HYDROcodone/APAP 10-325MG [[place] 1 tab PO Q4HR PRN 05/15/24 05/15/24 10-325] Sennosides-Docusate Sodium 1 tab PO BID 05/15/24 05/15/24 [Senokot-S] Previous Rx's Medication Instructions Recorded Famotidine [Pepcid] 20 mg PO BID #60 tab 05/12/24 fentaNYL 25MCG/HR PATCH [Duragesic 1 patch TRANSDERM Q72H patch 05/12/24 25MCG/HR] Ipratropium-Albuterol Nebulize 3 ml INHALATION RT-QID each 05/20/24 [Duoneb 0.5 mg-3 mg/3 ml Soln] QUEtiapine [SEROquel] 12.5 mg PO BID PRN #30 tab 05/20/24 QUEtiapine [SEROquel] 25 mg PO HS #30 tab 05/20/24 Allergies Allergy/AdvReac Type Severity Reaction Status Date / Time No Known Allergies Allergy Verified 05/15/24 10:09 Review of Systems ROS Statement: Those systems with pertinent positive or pertinent negative responses have been documented in the HPI. ROS Other: All systems not noted in ROS Statement are negative. Constitutional: Denies: fever Eyes: Denies: eye pain ENT: Denies: ear pain Respiratory: Reports: as per HPI, dyspnea Cardiovascular: Reports: as per HPI, chest pain Endocrine: Reports: fatigue Gastrointestinal: Denies: vomiting Past Medical History Past Medical History: Cancer, COPD, Eye Disorder Additional Past Medical History / Comment(s): MENINGITIS, 19 YRS OLD ovarian cyst burst., FLOATER RIGHT EYE., LEFT BREAST CANCER with mets to lung Recurrent left-sided pleural effusion, R sided pleural effusion. History of Any Multi-Drug Resistant Organisms: None Reported Past Surgical History: Hysterectomy, Tonsillectomy Additional Past Surgical History / Comment(s): HARITHA CATARACTS with lens implants, Mastectomy, March 2023; left-sided Pleurx catheter placed January 14, 2024, Port- a -cath. Past Anesthesia/Blood Transfusion Reactions: No Reported Reaction Additional Past Anesthesia/Blood Transfusion Reaction / Comment(s): HX OF BLOOD TRANSFUSION-NO REACTION Past Psychological History: Anxiety Smoking Status: Former smoker - Past Family History Father History Unknown: Yes Family Medical History: Cancer Additional Family Medical History / Comment(s): PANCREATIC CANCER Brother(s) History Unknown: Yes Family Medical History: Cancer, Thyroid Disorder Additional Family Medical History / Comment(s): STOMACH CANCER General Exam Limitations: no limitations General appearance: alert, in no apparent distress Head exam: Present: normocephalic Eye exam: Present: normal appearance ENT exam: Present: mucous membranes dry Neck exam: Present: normal inspection Respiratory exam: Present: decreased breath sounds Cardiovascular Exam: Present: regular rate, normal rhythm GI/Abdominal exam: Present: soft. Absent: tenderness Extremities exam: Present: normal inspection. Absent: pedal edema, calf tenderness Neurological exam: Present: alert Psychiatric exam: Present: normal affect, normal mood Skin exam: Present: normal color Course Vital Signs 05/29/24 05/29/24 05/29/24 09:17 11:40 12:08 Temperature 98.8 F Pulse Rate 107 H 104 H 94 Respiratory 20 18 18 Rate Blood Pressure 112/82 119/82 122/66 O2 Sat by Pulse 95 96 97 Oximetry EKG Findings - EKG Results: EKG: interpreted by DUSTYD, sinus rhythm, normal axis, normal QRS, normal ST/T EKG shows: tachycardia Medical Decision Making - Medical Decision Making Was pt. sent in by a medical professional or institution (, PA, WAREHOUSE DELIVERY DRIVER, urgent care, hospital, or fpc...) When possible be specific @ -No Did you speak to anyone other than the patient for history (EMS, parent, family, police, friend...)? What history was obtained from this source @ -No Did you review nursing and triage notes (agree or disagree)? Why? @ -I reviewed and agree with nursing and triage notes Were old charts reviewed (outside hosp., previous admission, EMS record, old EKG, old radiological studies, urgent care reports/EKG's, fpc records)? Report findings @ -Previous x-ray and previous admissions reviewed including procedures Differential Diagnosis (chest pain, altered mental status, abdominal pain women, abdominal pain men, vaginal bleeding, weakness, fever, dyspnea, syncope, headache, dizziness, GI bleed, back pain, seizure, CVA, palpatations, mental health, musculoskeletal)? @ -Differential Dyspnea: Coronary syndrome, arrhythmia, tamponade, asthma, COPD, pulmonary embolism, pneumonia, pneumothorax, pulmonary effusion, anaphylaxis, diabetic ketoacidosis, flailed chest, pulmonary contusion, diaphragmatic rupture, anemia, neuromuscular, this is not meant to be an all-inclusive list. EKG interpreted by me (3pts min.). @ -As above X-rays interpreted by me (1pt min.). @ -X-ray shows increased effusion size on the right. Catheter left side. CT interpreted by me (1pt min.). @ -None done U/S interpreted by me (1pt. min.). @ -None done What testing was considered but not performed or refused? (CT, X-rays, U/S, labs)? Why? @ -None What meds were considered but not given or refused? Why? @ -None Did you discuss the management of the patient with other professionals (earl vincent i.e. , PA, WAREHOUSE DELIVERY DRIVER, lab, RT, psych nurse, psychosocial rehabilitation counselor, chargeback analyst, teacher, armed custom protection officer, insurance case manager)? Give summary @ -Case was discussed with Dr. Romo who will admit covering Dr. Lema Was smoking cessation discussed for >3mins.? @ -No Was critical care preformed (if so, how long)? @ -No Were there social determinants of health that impacted care today? How? (Homelessness, low income, unemployed, alcoholism, drug addiction, transportation, low edu. Level, literacy, decrease access to med. care, fpc, rehab)? @ -No Was there de-escalation of care discussed even if they declined (Discuss DNR or withdrawal of care, Hospice)? DNR status @ -No What co-morbidities impacted this encounter? (DM, HTN, Smoking, COPD, CAD, Cancer, CVA, ARF, Chemo, Hep., AIDS, mental health diagnosis, sleep apnea, morbid obesity)? @ -History of metastatic breast cancer with previous effusion Was patient admitted / discharged? Hospital course, mention meds given and route, prescriptions, significant lab abnormalities, going to OR and other pertinent info. @ -Patient presents with increased dyspnea and chest discomfort with increasing right-sided pleural effusion. Patient will be admitted for pulmonary consult as well as fluids for hyponatremia Undiagnosed new problem with uncertain prognosis? @ -No Drug Therapy requiring intensive monitoring for toxicity (Heparin, Nitro, Insulin, Cardizem)? @ -No Were any procedures done? @ -No Diagnosis/symptom? @ -Pleural effusion, hyponatremia Acute, or Chronic, or Acute on Chronic? @ -Acute, acute Uncomplicated (without systemic symptoms) or Complicated (systemic symptoms)? @ -Complicated with increase in effusion size Side effects of treatment? @ -No Exacerbation, Progression, or Severe Exacerbation? @ -No Poses a threat to life or bodily function? How? (Chest pain, [place], [place], pneumonia, PE, COPD, DKA, ARF, appy, cholecystitis, CVA, Diverticulitis, Homicidal, Suicidal, threat to staff... and all critical care pts) @ -Threat to pulmonary function - Lab Data Result diagrams: 05/29/24 10:26 05/29/24 10:26 Lab Results 05/29/24 05/29/24 05/29/24 Range/Units 10:26 10:26 10:26 WBC 7.1 (3.8-10.6) k/uL RBC 3.84 (3.80-5.40) m/uL Hgb 11.9 (11.4-16.0) gm/dL Hct 36.6 (34.0-46.0) % MCV 95.5 (80.0-100.0) fL MCH 31.0 (25.0-35.0) pg MCHC 32.4 (31.0-37.0) g/dL RDW 16.2 H (11.5-15.5) % Plt Count 163 D (150-450) k/uL MPV 8.6 Neutrophils % 82 % Lymphocytes % 9 % Monocytes % 8 % Eosinophils % 0 % Basophils % 0 % Neutrophils # 5.8 (1.3-7.7) k/uL Lymphocytes # 0.6 L (1.0-4.8) k/uL Monocytes # 0.6 (0-1.0) k/uL Eosinophils # 0.0 (0-0.7) k/uL Basophils # 0.0 (0-0.2) k/uL Anisocytosis Slight PT 11.6 (10.0-12.5) sec INR 1.1 (<1.2) APTT 25.6 (22.0-30.0) sec Sodium 129 L (137-145) mmol/L Potassium 4.1 (3.5-5.1) mmol/L Chloride 96 L (98-107) mmol/L Carbon Dioxide 29 (22-30) mmol/L Anion Gap 4 mmol/L BUN 10 (7-17) mg/dL Creatinine 0.26 L (0.52-1.04) mg/dL Est GFR (CKD-EPI)AfAm >90 (>60 ml/min/1.73 sqM) Est GFR (CKD-EPI)NonAf >90 (>60 ml/min/1.73 sqM) Glucose 80 (74-99) mg/dL Plasma Lactic Acid Calixto (0.7-2.0) mmol/L Calcium 8.9 (8.4-10.2) mg/dL Magnesium 1.7 (1.6-2.3) mg/dL Total Bilirubin 0.4 (0.2-1.3) mg/dL AST 51 H (14-36) U/L ALT 22 (4-34) U/L Alkaline Phosphatase 179 H (38-126) U/L Total Protein 5.5 L (6.3-8.2) g/dL Albumin 3.3 L (3.5-5.0) g/dL 05/29/24 Range/Units 10:26 WBC (3.8-10.6) k/uL RBC (3.80-5.40) m/uL Hgb (11.4-16.0) gm/dL Hct (34.0-46.0) % MCV (80.0-100.0) fL MCH (25.0-35.0) pg MCHC (31.0-37.0) g/dL RDW (11.5-15.5) % Plt Count (150-450) k/uL MPV Neutrophils % % Lymphocytes % % Monocytes % % Eosinophils % % Basophils % % Neutrophils # (1.3-7.7) k/uL Lymphocytes # (1.0-4.8) k/uL Monocytes # (0-1.0) k/uL Eosinophils # (0-0.7) k/uL Basophils # (0-0.2) k/uL Anisocytosis PT (10.0-12.5) sec INR (<1.2) APTT (22.0-30.0) sec Sodium (137-145) mmol/L Potassium (3.5-5.1) mmol/L Chloride (98-107) mmol/L Carbon Dioxide (22-30) mmol/L Anion Gap mmol/L BUN (7-17) mg/dL Creatinine (0.52-1.04) mg/dL Est GFR (CKD-EPI)AfAm (>60 ml/min/1.73 sqM) Est GFR (CKD-EPI)NonAf (>60 ml/min/1.73 sqM) Glucose (74-99) mg/dL Plasma Lactic Acid Calixto 1.0 (0.7-2.0) mmol/L Calcium (8.4-10.2) mg/dL Magnesium (1.6-2.3) mg/dL Total Bilirubin (0.2-1.3) mg/dL AST (14-36) U/L ALT (4-34) U/L Alkaline Phosphatase (38-126) U/L Total Protein (6.3-8.2) g/dL Albumin (3.5-5.0) g/dL Disposition Clinical Impression: Pleural effusion, Hyponatremia Disposition: ADMITTED IP TO THIS HOSP Condition: Serious Is patient prescribed a controlled substance at d/c from ED?: No Referrals: Roney Lema DO [Primary Care Provider] - 1-2 days Time of Disposition: 12:34
[2024-05-29] MEDS: MORPHINE SULFATE 4 MG/ML SYRINGE IVP STA (10:15)
[2024-05-29] MEDS: SODIUM CHLORIDE 0.9% 1,000 ML IV STA (10:16)
[2024-05-29 11:05] LABS: ALT 22 U/L (4-34); AST 51 U/L (14-36); African American GFR (CKD) >90 (>60 ml/min/1.73 sqM); Albumin 3.3 g/dL (3.5-5.0); Alkaline Phosphatase 179 U/L (38-126); Anion Gap 4 mmol/L; Blood Urea Nitrogen 10 mg/dL (7-17); Calcium 8.9 mg/dL (8.4-10.2); Carbon Dioxide 29 mmol/L (22-30); Chloride 96 mmol/L (98-107); Glucose 80 mg/dL (74-99); Magnesium 1.7 mg/dL (1.6-2.3); Non-African American GFR(CKD) >90 (>60 ml/min/1.73 sqM); Potassium 4.1 mmol/L (3.5-5.1); Sodium 129 mmol/L (137-145); Total Bilirubin 0.4 mg/dL (0.2-1.3); Total Protein 5.5 g/dL (6.3-8.2)
[2024-05-29 11:06] LABS: INR 1.1 (<1.2); Partial Thromboplastin Time 25.6 sec (22.0-30.0); Prothrombin Time 11.6 sec (10.0-12.5)
--- NOTE | 2024-05-29 11:28 | XR ---
EXAMINATION TYPE: XR chest 2V DATE OF EXAM: 05/29/2024 COMPARISON: 05/14/2024 HISTORY: Dyspnea TECHNIQUE: Frontal and lateral views of the chest are obtained. FINDINGS: There is a right Mediport catheter unchanged in position. The tip is in the SVC/RA junction. There are stable biapical pleural-parenchymal scarring. There is a moderate right pleural effusion which has increased significantly compared to the prior st udy There are stable mildly prominent diffuse interstitial markings which could reflect chronic interstit ial changes or acute interstitial process. The osseous structures are intact . There is a stable small left pleural effusion IMPRESSION: Significant interval worsening in the right pleural effusion. Stable small left pleural effusion.
[2024-05-29 11:32] LABS: Anisocytosis Slight; Basophils % (A) 0 %; Eosinophils % (A) 0 %; HCT 36.6 % (34.0-46.0); HGB 11.9 gm/dL (11.4-16.0); Lymphocytes # (A) 0.6 k/uL (1.0-4.8); Lymphocytes % (A) 9 %; MCHC 32.4 g/dL (31.0-37.0); MCV 95.5 fL (80.0-100.0); Mean Platelet Volume 8.6; Monocytes # (A) 0.6 k/uL (0-1.0); Monocytes % (A) 8 %; Neutrophils # (A) 5.8 k/uL (1.3-7.7); Neutrophils % (A) 82 %; RBC 3.84 m/uL (3.80-5.40); RDW 16.2 % (11.5-15.5); WBC 7.1 k/uL (3.8-10.6)
[2024-05-29 11:47] LABS: Platelet Count 163 k/uL (150-450)
[2024-05-29] MEDS: LORazepam 2 MG/ML INJ IV STA (12:07)
[2024-05-29] MEDS ORDERED: NALOXONE 0.4 MG/ML 1 ML VIAL IV PRN (12:34)
[2024-05-29] MEDS ORDERED: LORazepam 0.5 MG TAB PO PRN (12:34)
[2024-05-29] MEDS: SODIUM CHLORIDE 0.9% 1,000 ML IV SCH (13:29)
[2024-05-29] MEDS: MORPHINE SULFATE 4 MG/ML SYRINGE IV PRN (13:40)
[2024-05-29] MEDS ORDERED: OLANZapine 2.5 MG TAB PO PRN (15:05)
[2024-05-29] MEDS ORDERED: ALPRAZolam 0.5 MG TAB PO PRN (15:05)
[2024-05-29] MEDS ORDERED: polyethylene glycoL 3350 17 GM POWD.PACK PO PRN (15:05)
[2024-05-29] MEDS ORDERED: DEXTROSE 50% SYRINGE 50 ML IVP PRN ×2 (15:07)
--- NOTE | 2024-05-29 15:09 | P.CNPUL ---
History of Present Illness Consult date: 05/29/24 Requesting physician: Rod E Nory Reason for consult: dyspnea, abnormal CXR/CT Chief complaint: Pain, shortness of breath History of present illness: This is yet another admission for a 68-year-old female patient who was just discharged on May 20 2024 and prior to that she was discharged on May 12, 2024. She does have metastatic breast cancer with a PET scan from December showing new foci of uptake in the mediastinum and hilar lymph nodes as well as new foci in the liver, osseous lesions and thoracic thoracic vertebral bodies and right ilium and left anterior rib as well as persistent uptake in the distal sigmoid colon. Suspicious for disease progression. She has been having ongoing issues with pain control. She also has recurrent left-sided pleural effusion and had undergone a left Pleurx catheter placement on January 14, 2024. She has also had right-sided pleural effusions positive for metastatic disease with the last right-sided thoracentesis done on 05/11/2024. She came back to the emergency room today after mistakenly taking regular medication and not her pain medication which she states caused her to have more pain. Chest x-ray does reveal a recurrent right-sided pleural effusion. Left side with small stable pleural effusion. She is currently sitting up in bed. Awake and alert in no acute distress. Maintaining good O2 saturations in the 90s on 2 L/min per nasal cannula. She is afebrile. Hemodynamically stable. White count 7.1. Hemoglobin 11.9. Platelets 163. Sodium 129. Potassium 4.1. Bicarb 29. BUN 10. Creatinine 0.26. She has been initiated on morphine for pain control. She has normal saline at 75 MLS per hour. Review of Systems REVIEW OF SYSTEMS: CONSTITUTIONAL: Denies any recent significant weight loss or weight gain. EYES: Denies change in vision. EARS, NOSE, MOUTH, THROAT: Denies headaches, denies sore throat. CARDIOVASCULAR: Denies chest pain, palpitations or syncopal episodes. RESPIRATORY: Positive for shortness of breath, no cough, congestion or hemoptysis. GASTROINTESTINAL: Denies change in appetite, denies abdominal pain GENITOURINARY: Denies hematuria, denies infections. MUSKULOSKELETAL: Positive for skeletal pain. INTEGUMENTARY: Denies rash, denies eczema. NEUROLOGICAL: Denies recent memory loss, no recent seizure activity. PSYCHIATRIC: Denies anxiety, denies depression. HEMATOLOGIC/LYMPHATIC: Denies anemia, denies enlarged lymph nodes. Past Medical History Past Medical History: Cancer, COPD, Eye Disorder Additional Past Medical History / Comment(s): MENINGITIS, 19 YRS OLD ovarian cyst burst., FLOATER RIGHT EYE., LEFT BREAST CANCER with mets to lung Recurrent left-sided pleural effusion, R sided pleural effusion. History of Any Multi-Drug Resistant Organisms: None Reported Past Surgical History: Hysterectomy, Tonsillectomy Additional Past Surgical History / Comment(s): HARITHA CATARACTS with lens implants, Mastectomy, March 2023; left-sided Pleurx catheter placed January 14, 2024, Port- a -cath. Past Anesthesia/Blood Transfusion Reactions: No Reported Reaction Additional Past Anesthesia/Blood Transfusion Reaction / Comment(s): HX OF BLOOD TRANSFUSION-NO REACTION Past Psychological History: Anxiety Smoking Status: Former smoker - Past Family History Father History Unknown: Yes Family Medical History: Cancer Additional Family Medical History / Comment(s): PANCREATIC CANCER Brother(s) History Unknown: Yes Family Medical History: Cancer, Thyroid Disorder Additional Family Medical History / Comment(s): STOMACH CANCER Medications and Allergies Home Medications Medication Instructions Recorded Confirmed Type Albuterol Sulfate [Ventolin HFA] 2 puff INHALATION RT-Q6H PRN 01/01/24 05/29/24 History Levothyroxine Sodium [Synthroid] 88 mcg PO DAILY 02/24/24 05/29/24 History polyethylene glycoL 3350 [Miralax] 17 gm PO BID PRN 02/24/24 05/29/24 History Ondansetron [Zofran] 4 mg PO QID PRN 03/16/24 05/29/24 History LORazepam [Ativan] 1 tab PO BID 04/27/24 05/29/24 History ALPRAZolam [Xanax] 0.5 mg PO TID PRN 05/08/24 05/29/24 History OLANZapine [ZyPREXA] 2.5 mg PO HS PRN 05/08/24 05/29/24 History droNABinol [Marinol] 2.5 mg PO AC-BID 05/08/24 05/29/24 History Famotidine [Pepcid] 20 mg PO BID #60 tab 05/12/24 05/29/24 Rx fentaNYL 25MCG/HR PATCH [Duragesic 1 patch TRANSDERM Q72H patch 05/12/24 05/29/24 Rx 25MCG/HR] HYDROcodone/APAP 10-325MG [[place] 1 tab PO Q4HR PRN 05/15/24 05/29/24 History 10-325] Ipratropium-Albuterol Nebulize 3 ml INHALATION RT-QID each 05/20/24 05/29/24 Rx [Duoneb 0.5 mg-3 mg/3 ml Soln] Allergies Allergy/AdvReac Type Severity Reaction Status Date / Time No Known Allergies Allergy Verified 05/15/24 10:09 Physical Exam Vitals: Vital Signs Temp Pulse Pulse Resp BP BP Pulse Ox 05/29/24 14:25 98.5 F 109 H 16 127/83 94 L 05/29/24 13:30 105 H 18 137/99 97 05/29/24 12:08 94 18 122/66 97 05/29/24 11:40 104 H 18 119/82 96 05/29/24 09:17 98.8 F 107 H 20 112/82 95 Intake and Output 05/28/24 05/29/24 05/29/24 22:59 06:59 14:59 Other: Weight 35.834 kg GENERAL EXAM: Alert, frail, cachectic 68-year-old female on 2 L nasal cannula, fairly comfortable in no apparent distress. HEAD: Normocephalic. EYES: Normal reaction of pupils, equal size. NOSE: Clear with pink turbinates. THROAT: No erythema or exudates. NECK: No masses, no JVD. CHEST: No chest wall deformity. Left-sided Pleurx catheter secured in place. LUNGS: Equal air entry with diminished breath sounds in the right base. CVS: S1 and S2 normal with no audible murmur, regular rhythm. ABDOMEN: No hepatosplenomegaly, normal bowel sounds, no guarding or rigidity. SPINE: No scoliosis or deformity SKIN: No rashes CENTRAL NERVOUS SYSTEM: No focal deficits, tone is normal in all 4 extremities. EXTREMITIES: There is no peripheral edema. No clubbing, no cyanosis. Peripheral pulses are intact. Results - Laboratory Findings CBC and BMP: 05/29/24 10:26 05/29/24 10:26 PT/INR, D-dimer PT 11.6 sec (10.0-12.5) 05/29/24 10:26 INR 1.1 (<1.2) 05/29/24 10:26 Abnormal lab findings: Abnormal Labs 05/29/24 05/29/24 10:26 10:26 RDW 16.2 H Lymphocytes # 0.6 L Sodium 129 L Chloride 96 L Creatinine 0.26 L AST 51 H Alkaline Phosphatase 179 H Total Protein 5.5 L Albumin 3.3 L - Diagnostic Findings Chest x-ray: image reviewed Assessment and Plan Assessment: Acute on chronic hypoxic respiratory failure secondary to recurrent right-sided pleural effusion. Most recent thoracentesis on 05/11/2024 with 1 L of fluid removed. Positive for malignancy. Previous right-sided thoracentesis on 02/24/2024 History of malignant left-sided pleural effusion, requiring frequent previous thoracentesis, and eventual Pleurx catheter insertion on 01/14/2024. Patient has been previously draining her catheter weekly, however, over the last 2 weeks minimal output was noted. Frequent readmissions due to pain control issues and shortness of breath, discharged again on 05/20/2024 Metastatic breast cancer, most recent PET scan performed on 12/03/2023 identified new foci of uptake within the mediastinum and hilar lymph nodes, as well as new foci within the liver, osseous lesions including thoracic vertebral bodies and right ilium and left anterior rib and, as well as persistent uptake in the distal sigmoid colon, these findings are suspicious for disease progression and metastasis. She also has increased tumor marker levels as well. She was to have a follow-up PET scan and be restaged but has been hospitalized 3 times since then History of left-sided mastectomy Severe chronic obstructive pulmonary disease, most recent FEV1 47% of predicted, stable Chronic hypoxemic respiratory failure, maintained on 1-2 L/min nasal cannula while at home Former tobacco smoker, quitting approximately 2 months ago Hypothyroidism History of meningitis History of ovarian cyst Severe protein calorie malnutrition Plan: The patient was seen and evaluated Chest x-ray, medications and labs reviewed Resume DuoNeb inhalations Adequate pain control Will place a consult to CT services for right-sided Pleurx catheter placement We will continue to follow and make further recommendations based on her clinical status I have personally seen and examined the patient, performed the documentation and the assessment and plan as written. Number of minutes spent on the visit: 20.
[2024-05-29] MEDS: SYMBICORT 160-4.5 MCG INHALER INHALATION SCH (15:36)
[2024-05-29] MEDS: IPRATROPIUM-ALBUTEROL 3 ML NEB INHALATION SCH (15:36)
--- NOTE | 2024-05-29 15:42 | P.CONS ---
History of Present Illness - Reason for Consult Consult date: 05/29/24 Metastatic Triple Negative Breast Cancer - Chief Complaint Dyspnea - History of Present Illness Ms. Canchola is a 68-year-old woman with a past medical history significant for metastatic triple negative breast cancer who had residual disease following neoadjuvant chemoimmunotherapy per the keynote 522 protocol and progressed on adjuvant Xeloda/Keytruda and most recently had been receiving erublin (last on 05/04/2024 with cycle 5, day 8) presenting with increased dyspnea. She was most recently hospitalized from 05/15/2024 to 05/20/2024 with abdominal pain that improved following bowel movement. She did have dyspnea and was noted to have a right-sided pleural effusion and had undergone thoracentesis on 05/11/2024, with cytology being positive for metastatic malignancy. She presents today with incr eased dyspnea over the past 2 days without any cough, fevers, chills, or sick contacts. She notes having mild chest discomfort worse than baseline, but she attributes this due to mixing up her pain medications in the middle of the night. Given the progressive dyspnea, she presented to the ED for additional management recommendations. In the ED, she was afebrile with heart rates in the low 100s and saturating well on room air, but was placed on 2 L nasal cannula. CBC reveals no cytopenias. C MP noted sodium 129, AST 51, ALT 22, alkaline phosphatase 179. Chest x-ray noted increased right pleural effusion compared to postprocedure chest x-ray on 05/14/2024. She was given morphine 4 mg IV and Ativan 0.5 mg IV. She was admitted to internal medicine for additional management recommendations. Review of Systems 14 point view systems was conducted with pertinent positives and negatives as noted per HPI. Past Medical History Past Medical History: Cancer, COPD, Eye Disorder Additional Past Medical History / Comment(s): MENINGITIS, 19 YRS OLD ovarian cyst burst., FLOATER RIGHT EYE., LEFT BREAST CANCER with mets to lung Recurrent left-sided pleural effusion, R sided pleural effusion. History of Any Multi-Drug Resistant Organisms: None Reported Past Surgical History: Hysterectomy, Tonsillectomy Additional Past Surgical History / Comment(s): HARIHTA CATARACTS with lens implants, Mastectomy, March 2023; left-sided Pleurx catheter placed January 14, 2024, Port- a -cath. Past Anesthesia/Blood Transfusion Reactions: No Reported Reaction Additional Past Anesthesia/Blood Transfusion Reaction / Comm: HX OF BLOOD TRANSFUSION-NO REACTION Past Psychological History: Anxiety Smoking Status: Former smoker - Past Family History Father History Unknown: Yes Family Medical History: Cancer Additional Family Medical History / Comment(s): PANCREATIC CANCER Brother(s) History Unknown: Yes Family Medical History: Cancer, Thyroid Disorder Additional Family Medical History / Comment(s): STOMACH CANCER Medications and Allergies Home Medications Medication Instructions Recorded Confirmed Type Albuterol Sulfate [Ventolin HFA] 2 puff INHALATION RT-Q6H PRN 01/01/24 05/29/24 History Levothyroxine Sodium [Synthroid] 88 mcg PO DAILY 02/24/24 05/29/24 History polyethylene glycoL 3350 [Miralax] 17 gm PO BID PRN 02/24/24 05/29/24 History Ondansetron [Zofran] 4 mg PO QID PRN 03/16/24 05/29/24 History LORazepam [Ativan] 1 tab PO BID 04/27/24 05/29/24 History ALPRAZolam [Xanax] 0.5 mg PO TID PRN 05/08/24 05/29/24 History OLANZapine [ZyPREXA] 2.5 mg PO HS PRN 05/08/24 05/29/24 History droNABinol [Marinol] 2.5 mg PO AC-BID 05/08/24 05/29/24 History Famotidine [Pepcid] 20 mg PO BID #60 tab 05/12/24 05/29/24 Rx fentaNYL 25MCG/HR PATCH [Duragesic 1 patch TRANSDERM Q72H patch 05/12/24 05/29/24 Rx 25MCG/HR] HYDROcodone/APAP 10-325MG [[place] 1 tab PO Q4HR PRN 05/15/24 05/29/24 History 10-325] Ipratropium-Albuterol Nebulize 3 ml INHALATION RT-QID each 05/20/24 05/29/24 Rx [Duoneb 0.5 mg-3 mg/3 ml Soln] Allergies Allergy/AdvReac Type Severity Reaction Status Date / Time No Known Allergies Allergy Verified 05/15/24 10:09 Physical Exam Vitals: Vital Signs Temp Pulse Pulse Resp BP BP Pulse Ox 05/29/24 14:25 98.5 F 109 H 16 127/83 94 L 05/29/24 13:30 105 H 18 137/99 97 05/29/24 12:08 94 18 122/66 97 05/29/24 11:40 104 H 18 119/82 96 05/29/24 09:17 98.8 F 107 H 20 112/82 95 Intake and Output 05/29/24 05/29/24 05/29/24 06:59 14:59 22:59 Other: Weight 35.834 kg - Constitutional Fatigued appearing General appearance: cooperative, no acute distress - EENT Eyes: EOMI - Respiratory Respiratory: right: diminished (Diminished breath sounds in the right lung base) - Cardiovascular Rhythm: regular - Gastrointestinal General gastrointestinal: no distended, normal bowel sounds, soft, tenderness Localized gastrointestinal: tender: RUQ - Integumentary Integumentary: pale - Neurologic Neurologic: CNII-XII intact Results CBC & Chem 7: 05/29/24 10:26 05/29/24 10:26 Labs: Abnormal Lab Results - Last 24 Hours (Table) 05/29/24 05/29/24 Range/Units 10:26 10:26 RDW 16.2 H (11.5-15.5) % Lymphocytes # 0.6 L (1.0-4.8) k/uL Sodium 129 L (137-145) mmol/L Chloride 96 L (98-107) mmol/L Creatinine 0.26 L (0.52-1.04) mg/dL AST 51 H (14-36) U/L Alkaline Phosphatase 179 H (38-126) U/L Total Protein 5.5 L (6.3-8.2) g/dL Albumin 3.3 L (3.5-5.0) g/dL Assessment and Plan (1) Malignant neoplasm of breast metastatic to liver Current Visit: Yes Status: Acute Code(s): C50.919 - MALIGNANT NEOPLASM OF UNSP SITE OF UNSPECIFIED FEMALE BREAST; C78.7 - SECONDARY MALIG NEOPLASM OF LIVER AND INTRAHEPATIC BILE DUCT SNOMED Code(s): 91956339 (2) Pleural effusion Current Visit: Yes Status: Acute Priority: High Code(s): J90 - PLEURAL EFFUSION, NOT ELSEWHERE CLASSIFIED SNOMED Code(s): 76745756 (3) Cancer associated pain Current Visit: No Status: Acute Priority: High Code(s): G89.3 - NEOPLASM RELATED PAIN (ACUTE) (CHRONIC) SNOMED Code(s): 45362029290421 Plan: #Right-sided pleural effusion -Noted to have increased dyspnea over the past few days without any signs or symptoms of infection -Chest x-ray on admission notes significantly enlarged pleural effusion from chest x-ray on 05/14/2024 -Thoracentesis with cytology of right-sided pleural effusion performed on 05/11/2024 was consistent with metastatic breast cancer -Pulmonology consulted, appreciate their assistance -She may need Pleurx catheter placed to the right side as well as the left side that is in place #Metastatic triple negative breast cancer -Progressed on adjuvant Xeloda/Keytruda -Completed 5 cycles of eribulin with last treatment on 05/04/2024 -She was noted to have progressive increase in CA 15-3 and CA 27-29 from March 2024 with abdominal imaging during her last admission revealing lesion in the liver concerning for metastases -PET/CT was performed on 05/26/2024 with official read pending. Per my review, she does appear to have increased bone metastases and new liver metastases not previously visualized -Given the radiographic findings as well as increased tumor markers, I do believe she has disease progression. We did discuss this today -Upon discussion, she was tearful, but noted she would like to receive additional treatment and was not ready to pursue hospice -She could be a candidate for sacituzumab govitecan (Trodelvy), which could be considered in the outpatient setting #Cancer related pain from bone metastases -Currently on fentanyl patch along with Edwall as needed -On my encounter today, she appeared comfortable without any significant pain -She does have morphine 4 mg every 4 hours as needed. We will see how often she is needing this and make any adjustments to her pain regimen as needed -She did have bowel movement yesterday prior to presentation. Colace 100 mg twi ce daily ordered Regina Ledesma MD
[2024-05-29] MEDS: HYDROcodone/APAP 10-325MG 1 EACH TAB PO PRN (16:01)
[2024-05-29] MEDS: methylPREDNISolone SOD SUCCI 125 MG/2 ML VIAL IV SCH (16:01)
[2024-05-29 17:07] LABS: Glucose,Whole Blood 94 mg/dL (70-110)
[2024-05-29] MEDS: INSULIN ASPART (NovoLOG) 100 UNIT/ML VIAL SQ SCH (17:07)
[2024-05-29] MEDS: droNABinol 2.5 MG CAP PO SCH (17:15)
[2024-05-29 20:16] LABS: Glucose,Whole Blood 131 mg/dL (70-110)
[2024-05-29] MEDS: FAMOTIDINE 20 MG TAB PO SCH (20:48)
[2024-05-29] MEDS: DOCUSATE 100 MG CAP PO SCH (20:48)
[2024-05-29] MEDS: LORazepam 1 MG TAB PO SCH (20:48)
[2024-05-29] MEDS: HEPARIN SODIUM,PORCINE 5,000 UNIT/ML 1 ML VIAL SQ SCH (20:49)
--- NOTE | 2024-05-30 01:38 | HP ---
HISTORY AND PHYSICAL CHIEF COMPLAINT: Shortness of breath. HISTORY OF PRESENT ILLNESS: This is a 68-year-old woman with a past medical history of multiple medical problems including metastatic breast cancer and multiple episodes of pleural effusion, had left pleural effusion, for which had drainage placed. Currently, the patient is complaining of shortness of breath. Chest x-ray showed evidence of right pleural effusion. The thoracocentesis was done previously about 1 L with 1 L of fluid taken. There is no history of any fever, rigors, chills at this time. PAST MEDICAL HISTORY: Reviewed and includes metastatic breast cancer, COPD, history of meningitis, anxiety. HOME MEDICATIONS: Reviewed and include Marinol, dose and rest of medications noted. ALLERGIES: None. FAMILY HISTORY: History of pancreatic cancer in the family. SOCIAL HISTORY: Previous history of smoking. REVIEW OF SYSTEMS: Fourteen-point review is negative except as mentioned earlier. PHYSICAL EXAMINATION: VITAL SIGNS: Pulse 105, blood pressure 130/90, respirations 18. HEENT: Conjunctivae normal. CARDIOVASCULAR: S1. S2. RESPIRATIONS: Breath sounds diminished at the bases. Few scattered rhonchi. The patient is severely emaciated. ABDOMEN: Soft, nontender. NERVOUS SYSTEM: Diffusely weak. SKIN: No rash. LABORATORY DATA: Sodium of 110. Rest of the labs are noted. ASSESSMENT: 1. Significant shortness of breath, possibly secondary to chronic obstructive pulmonary disease with acute exacerbation and right pleural effusion. 2. Metastatic breast cancer. 3. Left pleural effusion, on continuous drainage. 4. Hyponatremia. 5. Severe malnutrition. 6. Hysterectomy. 7. Multiple complex medical issues. RECOMMENDATIONS AND DISCUSSION: This 68-year-old woman presented with multiple complex medical issues. We will monitor the patient closely. Continue with the current management. I recommend bronchodilators and steroids. Pulmonary consultation, hematology/oncology consultation for possible thoracocentesis. I would also recommend Cardiothoracic Surgery for followup of the left catheter. Also, the prognosis is guarded because of multiple complex medical issues. Further recommendations to follow. See orders for details. Home medications will be continued. MMODL / IJN: [id number] /
[2024-05-30] MEDS: LEVOTHYROXINE 88 MCG TAB PO SCH (05:49)
[2024-05-30 07:31] LABS: Glucose,Whole Blood 113 mg/dL (70-110)
--- NOTE | 2024-05-30 11:06 | P.GSCN ---
History of Present Illness Consult date: 05/30/24 Reason for Consult: Recurrent right pleural effusion, evaluation for Pleurx catheter placement Requesting physician: Katherine Hernandez History of present illness: This is a 68-year-old female patient who follows an outpatient basis with Dr. Lema for her primary care, and Dr. Dee for her oncology care. She has a past medical history significant for metastatic triple negative ductal carcinoma of the left breast status post chemotherapy and left mastectomy in March 2023, recurrent left-sided malignant pleural effusion, status post thoracentesis and subsequent Pleurx catheter placement, right-sided malignant pleural effusion and subsequent thoracentesis on May 11, 2024, chronic obstructive pulmonary disease, history of 40-year tobacco dependence, quit smoking in November 2023, and anxiety. Yesterday May 29, 2024 the patient had complaints of progressive shortness of breath and panic attack. Due to the patient's symptoms she requested her call EMS and the patient was subsequently brought to the emergency department here at [facility] for further evaluation and treatment recommendations. The patient denies any recent fever, chills, nausea, vomiting, diarrhea, constipation, palpitations, headache, chest pain, presyncope or syncope. The patient does report that she has had some complaints of upper quadrant abdominal pain periodically. A twelve-lead EKG was completed in the emergency department which showed sinus tachycardia 102 bpm with an incomplete right bundle branch block. A chest x-ray was completed which showed a moderate right pleural effusion and a stable small left pleural effusion. Initial laboratory results showed a WBC count of 7.1, hemoglobin 11.9, eve tocrit 36.6, platelets 163, PT 11.6, INR 1.1, PTT 25.6, sodium 129, potassium 4.1, chloride 96, BUN 10, creatinine 0.26, and hemoglobin A1c 5.5. Patient does report she uses 2 L of nasal cannula oxygen as an outpatient. Subsequently due to the patient's recurrent right-sided pleural effusion status post right thoracentesis on May 11, 2024 a consult was placed to Dr. Tony Lazar from cardiothoracic surgery for further evaluation and treatment recommendations including placement of right Pleurx catheter. Review of Systems A review of systems was completed and was negative except as mentioned in the HPI. Past Medical History Past Medical History: Cancer, COPD, Eye Disorder Additional Past Medical History / Comment(s): MENINGITIS, 19 YRS OLD ovarian cyst burst., FLOATER RIGHT EYE., LEFT BREAST CANCER with mets to lung Recurrent left-sided pleural effusion, R sided pleural effusion. History of Any Multi-Drug Resistant Organisms: None Reported Past Surgical History: Hysterectomy, Tonsillectomy Additional Past Surgical History / Comment(s): HARITHA CATARACTS with lens implants, Mastectomy, March 2023; left-sided Pleurx catheter placed January 14, 2024, Port- a -cath. Past Anesthesia/Blood Transfusion Reactions: No Reported Reaction Additional Past Anesthesia/Blood Transfusion Reaction / Comm: HX OF BLOOD TRANSFUSION-NO REACTION Past Psychological History: Anxiety Smoking Status: Former smoker (Quit in November 2023) Past Alcohol Use History: None Reported Past Drug Use History: None Reported - Past Family History Father History Unknown: Yes Family Medical History: Cancer Additional Family Medical History / Comment(s): PANCREATIC CANCER Brother(s) History Unknown: Yes Family Medical History: Cancer, Thyroid Disorder Additional Family Medical History / Comment(s): STOMACH CANCER Mother Family Medical History: COPD Additional Family Medical History / Comment(s): Alzheimer's Medications and Allergies Home Medications Medication Instructions Recorded Confirmed Type Albuterol Sulfate [Ventolin HFA] 2 puff INHALATION RT-Q6H PRN 01/01/24 05/29/24 History Levothyroxine Sodium [Synthroid] 88 mcg PO DAILY 02/24/24 05/29/24 History polyethylene glycoL 3350 [Miralax] 17 gm PO BID PRN 02/24/24 05/29/24 History Ondansetron [Zofran] 4 mg PO QID PRN 03/16/24 05/29/24 History LORazepam [Ativan] 1 tab PO BID 04/27/24 05/29/24 History ALPRAZolam [Xanax] 0.5 mg PO TID PRN 05/08/24 05/29/24 History OLANZapine [ZyPREXA] 2.5 mg PO HS PRN 05/08/24 05/29/24 History droNABinol [Marinol] 2.5 mg PO AC-BID 05/08/24 05/29/24 History Famotidine [Pepcid] 20 mg PO BID #60 tab 05/12/24 05/29/24 Rx fentaNYL 25MCG/HR PATCH [Duragesic 1 patch TRANSDERM Q72H patch 05/12/24 05/29/24 Rx 25MCG/HR] HYDROcodone/APAP 10-325MG [[place] 1 tab PO Q4HR PRN 05/15/24 05/29/24 History 10-325] Ipratropium-Albuterol Nebulize 3 ml INHALATION RT-QID each 05/20/24 05/29/24 Rx [Duoneb 0.5 mg-3 mg/3 ml Soln] Allergies Allergy/AdvReac Type Severity Reaction Status Date / Time No Known Allergies Allergy Verified 05/15/24 10:09 Surgical - Exam Vital Signs Temp Pulse Resp BP Pulse Ox 98.8 F 107 H 20 112/82 95 05/29/24 09:17 05/29/24 09:17 05/29/24 09:17 05/29/24 09:17 05/29/24 09:17 - General no distress, cachectic, chronically ill - Eyes PERRL, normal ocular movement, no pale, no icteric - ENT normal pinna, normal nares, normal mucosa, no hearing loss, dentures - Neck Neck is supple, no JVD. no masses, no bruits, trachea midline, no venous distension - Respiratory Lung sounds with few scattered expiratory wheezes throughout, diminished to her bilateral bases right greater than left. Respirations are symmetrical and nonlabored. No rhonchi. Oxygen saturations are 98% on 2 L nasal cannula. - Cardiovascular Regular rhythm and rate. S1 and S2 present, negative for S3, gallop or murmur. - Abdomen Abdomen is soft, nontender and nondistended. Active bowel sounds present all 4 abdominal quadrants. No guarding or rigidity. No organomegaly appreciated. - Genitourinary Deferred - Rectum Deferred - Integumentary Left chest Pleurx catheter dressing clean, dry and intact. no rash, no growths, no abnormal pigmentation - Neurologic No focal deficits. - Musculoskeletal Equal strength bilateral. - Psychiatric oriented to time, oriented to person, oriented to place, speech is normal, memory intact Results - Labs 05/31/24 04:35 05/31/24 04:35 Abnormal Lab Results - Last 24 Hours (Table) 05/29/24 05/29/24 05/29/24 Range/Units 10:26 10:26 20:15 RDW 16.2 H (11.5-15.5) % Lymphocytes # 0.6 L (1.0-4.8) k/uL Sodium 129 L (137-145) mmol/L Chloride 96 L (98-107) mmol/L Creatinine 0.26 L (0.52-1.04) mg/dL POC Glucose (mg/dL) 131 H (70-110) mg/dL AST 51 H (14-36) U/L Alkaline Phosphatase 179 H (38-126) U/L Total Protein 5.5 L (6.3-8.2) g/dL Albumin 3.3 L (3.5-5.0) g/dL 05/30/24 Range/Units 07:27 RDW (11.5-15.5) % Lymphocytes # (1.0-4.8) k/uL Sodium (137-145) mmol/L Chloride (98-107) mmol/L Creatinine (0.52-1.04) mg/dL POC Glucose (mg/dL) 113 H (70-110) mg/dL AST (14-36) U/L Alkaline Phosphatase (38-126) U/L Total Protein (6.3-8.2) g/dL Albumin (3.5-5.0) g/dL Diabetes panel 05/29/24 05/30/24 Range/Units 10:26 05:50 Sodium 129 L (137-145) mmol/L Potassium 4.1 (3.5-5.1) mmol/L Chloride 96 L (98-107) mmol/L Carbon Dioxide 29 (22-30) mmol/L BUN 10 (7-17) mg/dL Creatinine 0.26 L (0.52-1.04) mg/dL Glucose 80 (74-99) mg/dL Hemoglobin A1c 5.5 (<=6.0) % Calcium 8.9 (8.4-10.2) mg/dL AST 51 H (14-36) U/L ALT 22 (4-34) U/L Alkaline Phosphatase 179 H (38-126) U/L Total Protein 5.5 L (6.3-8.2) g/dL Albumin 3.3 L (3.5-5.0) g/dL Calcium panel 05/29/24 Range/Units 10:26 Calcium 8.9 (8.4-10.2) mg/dL Albumin 3.3 L (3.5-5.0) g/dL Pituitary panel 05/29/24 Range/Units 10:26 Sodium 129 L (137-145) mmol/L Potassium 4.1 (3.5-5.1) mmol/L Chloride 96 L (98-107) mmol/L Carbon Dioxide 29 (22-30) mmol/L BUN 10 (7-17) mg/dL Creatinine 0.26 L (0.52-1.04) mg/dL Glucose 80 (74-99) mg/dL Calcium 8.9 (8.4-10.2) mg/dL Adrenal panel 05/29/24 Range/Units 10:26 Sodium 129 L (137-145) mmol/L Potassium 4.1 (3.5-5.1) mmol/L Chloride 96 L (98-107) mmol/L Carbon Dioxide 29 (22-30) mmol/L BUN 10 (7-17) mg/dL Creatinine 0.26 L (0.52-1.04) mg/dL Glucose 80 (74-99) mg/dL Calcium 8.9 (8.4-10.2) mg/dL Total Bilirubin 0.4 (0.2-1.3) mg/dL AST 51 H (14-36) U/L ALT 22 (4-34) U/L Alkaline Phosphatase 179 H (38-126) U/L Total Protein 5.5 L (6.3-8.2) g/dL Albumin 3.3 L (3.5-5.0) g/dL - Imaging Chest x-ray: report reviewed, image reviewed Assessment and Plan Assessment: Recurrent right-sided malignant effusion status post 2 previous right thoracentesis last completed on May 11, 2024 Generalized weakness Acute on chronic cancer pain History of metastatic triple negative ductal carcinoma of the left breast status post chemotherapy and left mastectomy in March 2023 Recurrent left-sided malignant pleural effusions status post thoracentesis and subsequent pleurx catheter placement COPD Previous tobacco dependence Anxiety Plan: The patient was seen and examined at her bedside on the fifth floor medical oncology unit. Her chart and diagnostics were reviewed. Her case was discussed in detail with Dr. Tony Lazar from cardiothoracic surgery. The results of the chest x-ray were discussed with the patient. Treatment options were discussed including placement of right Pleurx catheter. Risks and benefits of the procedure were discussed and knowing and understanding the risks the patient wished to proceed with Pleurx catheter placement. The patient will be n.p.o. after midnight. She will be scheduled for right Pleurx catheter placement t omorrow May 31, 2024 to be placed by Dr. Tony Lazar. Medical management other comorbidities per primary care service and other consultants. More recommendations to follow based on patient's clinical course. Thank you Dr. Hernandez for this consult and we look forward to working with you in the care of this patient. I have personally seen and examined the patient, performed the documentation and the assessment and plan as written. Number of minutes spent on the visit: 30. MAR Vasquez Attending Addendum: Pt seen and evaluted with [employer] above. Agree with his assessment and plan. I spent 35 minutes reviewing the data and discussing the plan of care with the team. Time with Patient: Greater than 30
[2024-05-30 12:11] LABS: Glucose,Whole Blood 142 mg/dL (70-110)
--- NOTE | 2024-05-30 12:45 | P.PN ---
Subjective Progress Note Date: 05/30/24 Pt resting comfortably in bed. Reporting pain and anxiety is being well controlled on current regimen. Plan for right pleurx drain tomorrow Objective - Vital Signs Vital signs: Vital Signs Temp 98.2 F 05/30/24 07:25 Pulse 98 05/30/24 11:46 Resp 16 05/30/24 07:25 BP 137/86 05/30/24 07:25 Pulse Ox 98 05/30/24 07:49 FiO2 Intake & Output 05/29/24 05/30/24 05/30/24 18:59 06:59 18:59 Intake Total 360 Balance 360 Weight 35.834 kg Intake: Intake, IV Titration 120 Amount Sodium Chloride 0.9% 1, 120 000 ml @ 75 mls/hr IV . [id number] STA Rx#:[id number] Oral 240 Other: Voiding Method Bedside Commode Bedpan # Voids 1 3 - Constitutional General appearance: Present: thin - EENT Eyes: Present: anicteric sclerae, EOMI ENT: Present: hearing grossly normal - Respiratory Details: breathing labored - Cardiovascular Details: skin warm and dry - Integumentary Integumentary: Absent: cyanotic - Psychiatric Psychiatric: Present: A&O x's 3 - Labs CBC & Chem 7: 05/29/24 10:26 05/29/24 10:26 Labs: Abnormal Lab Results - Last 24 Hours (Table) 05/29/24 05/30/24 Range/Units 20:15 07:27 POC Glucose (mg/dL) 131 H 113 H (70-110) mg/dL Assessment and Plan (1) Hyponatremia Current Visit: Yes Status: Acute Priority: High Code(s): E87.1 - HYPO-OSM OLALITY AND HYPONATREMIA SNOMED Code(s): 05433700 (2) Malignant neoplasm of breast metastatic to liver Current Visit: Yes Status: Acute Priority: High Code(s): C50.919 - MALIGNANT NEOPLASM OF UNSP SITE OF UNSPECIFIED FEMALE BREAST; C78.7 - SECONDARY MALIG NEOPLASM OF LIVER AND INTRAHEPATIC BILE DUCT SNOMED Code(s): 23982680 (3) Pleural effusion Current Visit: Yes Status: Acute Priority: High Code(s): J90 - PLEURAL EFFUSION, NOT ELSEWHERE CLASSIFIED SNOMED Code(s): 72996643 (4) Cancer associated pain Current Visit: Yes Status: Acute Priority: High Code(s): G89.3 - NEOPLASM RELATED PAIN (ACUTE) (CHRONIC) SNOMED Code(s): 35012697482209 Plan: #Right-sided pleural effusion -Noted to have increased dyspnea over the past few days without any signs or symptoms of infection -Chest x-ray on admission notes significantly enlarged pleural effusion from chest x-ray on 05/14/2024 -Thoracentesis with cytology of right-sided pleural effusion performed on 05/11/2024 was consistent with metastatic breast cancer -Pulmonology consulted, appreciate their assistance -Plan for right Pleurx catheter scheduled for tomorrow #Metastatic triple negative breast cancer -Progressed on adjuvant Xeloda/Keytruda -Completed 5 cycles of eribulin with last treatment on 05/04/2024 -She was noted to have progressive increase in CA 15-3 and CA 27-29 from March 2024 with abdominal imaging during her last admission revealing lesion in the liver concerning for metastases -PET/CT was performed on 05/26/2024 with official read pending. Per my review, she does appear to have increased bone metastases and new liver metastases not previously visualized -Given the radiographic findings as well as increased tumor markers, I do believe she has disease progression. -Upon discussion, she was tearful, but noted she would like to receive additional treatment and was not ready to pursue hospice -She could be a candidate for sacituzumab govitecan (Trodelvy), which could be considered in the outpatient setting Results and POC were discussed with patient. Will schedule clinic f/u upon discharge to further discuss goals of care and treatment options #Cancer related pain from bone metastases -Currently on IV morphine 4 mg and norco 10mg every 4 hours as needed. -Spoke with pharmacist and converted IV morphine to PO morphine. Will start Morphine ER 15mg BID, can increase to TID if pain not being well controlled. Continue norco 10/325 every 4 hours as needed for breakthrough pain -Colace 100 mg twice daily ordered
--- NOTE | 2024-05-30 13:14 | P.PN ---
Subjective Progress Note Date: 05/30/24 This is yet another admission for a 68-year-old female patient who was just discharged on May 20 2024 and prior to that she was discharged on May 12, 2024. She does have metastatic breast cancer with a PET scan from December showing new foci of uptake in the mediastinum and hilar lymph nodes as well as new foci in the liver, osseous lesions and thoracic thoracic vertebral bodies and right ilium and left anterior rib as well as persistent uptake in the distal sigmoid colon. Suspicious for disease progression. She has been having ongoing issues with pain control. She also has recurrent left-sided pleural effusion and had undergone a left Pleurx catheter placement on January 14, 2024. She has also had right-sided pleural effusions positive for metastatic disease with the last right-sided thoracentesis done on 05/11/2024. She came back to the emergency room today after mistakenly taking regular medication and not her pain medication which she states caused her to have more pain. Chest x-ray does reveal a recurrent right-sided pleural effusion. Left side with small stable pleural effusion. She is currently sitting up in bed. Awake and alert in no acute distress. Maintaining good O2 saturations in the 90s on 2 L/min per nasal cannula. She is afebrile. Hemodynamically stable. White count 7.1. Hemoglobin 11.9. Platelets 163. Sodium 129. Potassium 4.1. Bicarb 29. BUN 10. Creatinine 0.26. She has been initiated on morphine for pain control. She has normal saline at 75 MLS per hour. The patient is seen today May 30, 2024 in follow-up on the regular medical floor. She is sitting up in bed. Awake and alert in no acute distress. Maintaining O2 saturations in the 90s on 2 L/min per nasal cannula. No worsening shortness of breath, cough or congestion. The plan is for a right- sided Pleurx catheter to be placed tomorrow. Glucose 142. Hemoglobin A1c 5.5%. She remains on DuoNeb inhalations, Symbicort, Solu-Medrol. Heparin for DVT prophylaxis. Objective - Vital Signs Vital signs: Vital Signs Temp 97.9 F 05/30/24 12:04 Pulse 113 H 05/30/24 12:04 Resp 16 05/30/24 12:04 BP 130/84 05/30/24 12:04 Pulse Ox 95 07/29/24 12:04 FiO2 Intake & Output 05/29/24 05/30/24 05/30/24 18:59 06:59 18:59 Intake Total 360 Balance 360 Weight 35.834 kg Intake: Intake, IV Titration 120 Amount Sodium Chloride 0.9% 1, 120 000 ml @ 75 mls/hr IV . [id number] STA Rx#:[id number] Oral 240 Other: Voiding Method Bedside Commode Bedpan # Voids 1 3 1 - Exam GENERAL EXAM: Alert, frail, cachectic 68-year-old female, on 2 L nasal cannula, comfortable in no apparent distress. HEAD: Normocephalic. EYES: Normal reaction of pupils, equal size. NOSE: Clear with pink turbinates. THROAT: No erythema or exudates. NECK: No masses, no JVD. CHEST: No chest wall deformity. LUNGS: Equal air entry with rales bilaterally right greater than left. CVS: S1 and S2 normal with no audible murmur, regular rhythm. ABDOMEN: No hepatosplenomegaly, normal bowel sounds, no guarding or rigidity. SPINE: No scoliosis or deformity SKIN: No rashes CENTRAL NERVOUS SYSTEM: No focal deficits, tone is normal in all 4 extremities. EXTREMITIES: There is no peripheral edema. No clubbing, no cyanosis. Peripheral pulses are intact. - Labs CBC & Chem 7: 05/29/24 10:26 05/29/24 10:26 Labs: Abnormal Lab Results - Last 24 Hours (Table) 05/29/24 05/30/24 05/30/24 Range/Units 20:15 07:27 12:08 POC Glucose (mg/dL) 131 H 113 H 142 H (70-110) mg/dL Assessment and Plan Assessment: Acute on chronic hypoxic respiratory failure secondary to recurrent right-sided pleural effusion. Most recent thoracentesis on 05/11/2024 with 1 L of fluid removed. Positive for malignancy. Previous right-sided thoracentesis on 02/24/2024. Plan is for Pleurx catheter to be placed May 31, 2024 History of malignant left-sided pleural effusion, requiring frequent previous thoracentesis, and eventual Pleurx catheter insertion on 01/14/2024. Patient has been previously draining her catheter weekly, however, over the last 2 weeks minimal output was noted. Frequent readmissions due to pain control issues and shortness of breath, discharged again on 05/20/2024 Metastatic breast cancer, most recent PET scan performed on 12/03/2023 identified new foci of uptake within the mediastinum and hilar lymph nodes, as well as new foci within the liver, osseous lesions including thoracic vertebral bodies and right ilium and left anterior rib and, as well as persistent uptake in the distal sigmoid colon, these findings are suspicious for disease progression and metastasis. She also has increased tumor marker levels as well. She was to have a follow-up PET scan and be restaged but has been hospitalized 3 times since then History of left-sided mastectomy Severe chronic obstructive pulmonary disease, most recent FEV1 47% of predicted, stable Chronic hypoxemic respiratory failure, maintained on 1-2 L/min nasal cannula while at home Former tobacco smoker, quitting approximately 2 months ago Hypothyroidism History of meningitis History of ovarian cyst Severe protein calorie malnutrition Plan: The patient was seen and evaluated Medications reviewed Continue bronchodilators Adequate pain control Plan is for right-sided Pleurx catheter placement tomorrow We will continue to follow I have personally seen and examined the patient, performed the documentation and the assessment and plan as written. Number of minutes spent on the visit: 10.
[2024-05-30] MEDS: MORPHINE SULFATE ER 15 MG TABLET PO SCH (13:57)
[2024-05-30] MEDS: LORazepam 1 MG TAB PO SCH (16:40)
[2024-05-30 16:53] LABS: Glucose,Whole Blood 151 mg/dL (70-110)
[2024-05-30 20:18] LABS: Glucose,Whole Blood 147 mg/dL (70-110)
--- NOTE | 2024-05-30 22:05 | PN ---
PROGRESS NOTE DATE OF SERVICE: 05/30/2024 SUBJECTIVE: This is a 68-year-old woman, who was admitted with shortness of breath and COPD acute exacerbation, also had significant right pleural effusion also. Dr. Fuentes is recommending possible PleurX drainage on the right side. The left PleurX drainage is inserted, but not draining anything for several days according to the patient. Multiple consultants are following the patient closely. Cardiothoracic Surgeon has recommended right PleurX drainage. No chest pain. No palpitation. PAST MEDICAL HISTORY: Reviewed. REVIEW OF SYSTEMS: A 14-point review is negative except as mentioned earlier. CURRENT MEDICATIONS: Reviewed include cefazolin, dose and rest of medications noted. PHYSICAL EXAMINATION: VITAL SIGNS: Pulse is 113, blood pressure 130/84, respirations 16. CHEST: A few scattered rhonchi and crackles. Expiratory wheezing. ABDOMEN: Soft. NERVOUS SYSTEM: Nonfocal. LABORATORY DATA: Accu-Cheks noted. Otherwise, sodium 129. ASSESSMENT: 1. Significant shortness of breath, possibly secondary to chronic obstructive pulmonary disease acute exacerbation, also right pleural effusion. 2. Left pleural effusion, on PleurX drainage. 3. Metastatic breast cancer. 4. Hyponatremia. 5. Severe malnutrition. 6. Hysterectomy. 7. Multiple complex medical issues. RECOMMENDATIONS AND DISCUSSION: Recommend to continue current management and continue symptomatic treatment. Otherwise, right PleurX drainage per Cardiothoracic Surgery. Repeat labs will be ordered. Otherwise, nutrition supplement, bronchodilators, steroids. Prognosis extremely guarded because of multiple complex medical issues. Further recommendations to follow. See orders for further details. I would also recommend ProCal also to rule out the possibility of any superadded infection. MMODL / IJN: [id number] /
[2024-05-31] MEDS: IPRATROPIUM-ALBUTEROL 3 ML NEB INHALATION PRN (05:06)
[2024-05-31 05:40] LABS: ALT 21 U/L (4-34); AST 42 U/L (14-36); African American GFR (CKD) >90 (>60 ml/min/1.73 sqM); Albumin 3.3 g/dL (3.5-5.0); Albumin/Globulin Ratio 1.5; Alkaline Phosphatase 205 U/L (38-126); Anion Gap 4 mmol/L; Blood Urea Nitrogen 13 mg/dL (7-17); Calcium 9.3 mg/dL (8.4-10.2); Carbon Dioxide 28 mmol/L (22-30); Chloride 97 mmol/L (98-107); Globulin 2.2 g/dL; Glucose 121 mg/dL (74-99); Non-African American GFR(CKD) >90 (>60 ml/min/1.73 sqM); Potassium 4.8 mmol/L (3.5-5.1); Sodium 129 mmol/L (137-145); Total Bilirubin 0.3 mg/dL (0.2-1.3); Total Protein 5.5 g/dL (6.3-8.2)
[2024-05-31 05:56] LABS: Basophils % (A) 0 %; Eosinophils % (A) 0 %; HGB 11.9 gm/dL (11.4-16.0); Hypochromasia Slight; Lymphocytes # (A) 0.4 k/uL (1.0-4.8); Lymphocytes % (A) 7 %; MCH 31.1 pg (25.0-35.0); MCHC 32.3 g/dL (31.0-37.0); MCV 96.3 fL (80.0-100.0); Mean Platelet Volume 9.1; Monocytes # (A) 0.4 k/uL (0-1.0); Monocytes % (A) 6 %; Neutrophils # (A) 5.5 k/uL (1.3-7.7); Neutrophils % (A) 86 %; Platelet Count 192 k/uL (150-450); RBC 3.84 m/uL (3.80-5.40); RDW 15.9 % (11.5-15.5); WBC 6.3 k/uL (3.8-10.6)
[2024-05-31 07:12] LABS: Glucose,Whole Blood 119 mg/dL (70-110)
[2024-05-31] MEDS: MULTIVITAMINS, THERA 1 EACH TAB PO SCH (08:08)
[2024-05-31] MEDS: FOLIC ACID 1 MG TAB PO SCH (08:08)
[2024-05-31] MEDS: THIAMINE 100 MG TAB PO SCH (08:08)
[2024-05-31 12:15] LABS: Glucose,Whole Blood 106 mg/dL (70-110)
[2024-05-31] MEDS: ESCITALOPRAM 10 MG TAB PO SCH (12:22)
[2024-05-31] MEDS: ONDANSETRON 4 MG TAB PO PRN (12:24)
--- NOTE | 2024-05-31 12:44 | P.PN ---
Subjective Progress Note Date: 05/31/24 This is yet another admission for a 68-year-old female patient who was just discharged on May 20 2024 and prior to that she was discharged on May 12, 2024. She does have metastatic breast cancer with a PET scan from December showing new foci of uptake in the mediastinum and hilar lymph nodes as well as new foci in the liver, osseous lesions and thoracic thoracic vertebral bodies and right ilium and left anterior rib as well as persistent uptake in the distal sigmoid colon. Suspicious for disease progression. She has been having ongoing issues with pain control. She also has recurrent left-sided pleural effusion and had undergone a left Pleurx catheter placement on January 14, 2024. She has also had right-sided pleural effusions positive for metastatic disease with the last right-sided thoracentesis done on 05/11/2024. She came back to the emergency room today after mistakenly taking regular medication and not her pain medication which she states caused her to have more pain. Chest x-ray does reveal a recurrent right-sided pleural effusion. Left side with small stable pleural effusion. She is currently sitting up in bed. Awake and alert in no acute distress. Maintaining good O2 saturations in the 90s on 2 L/min per nasal cannula. She is afebrile. Hemodynamically stable. White count 7.1. Hemoglobin 11.9. Platelets 163. Sodium 129. Potassium 4.1. Bicarb 29. BUN 10. Creatinine 0.26. She has been initiated on morphine for pain control. She has normal saline at 75 MLS per hour. The patient is seen today May 30, 2024 in follow-up on the regular medical floor. She is sitting up in bed. Awake and alert in no acute distress. Maintaining O2 saturations in the 90s on 2 L/min per nasal cannula. No worsening shortness of breath, cough or congestion. The plan is for a right- sided Pleurx catheter to be placed tomorrow. Glucose 142. Hemoglobin A1c 5.5%. She remains on DuoNeb inhalations, Symbicort, Solu-Medrol. Heparin for DVT prophylaxis. The patient is seen today May 31, 2024 in follow-up on the regular medical floor. She is awake and alert in no acute distress. Sitting up in bed. She denies any worsening shortness of breath, cough or congestion. Her pain is better controlled. She is maintaining good O2 saturations in the upper 90s on 3 L nasal cannula. Afebrile. Hemodynamically stable. White count 6.3. Hemoglobin 11.9. Platelets 192. Sodium 129. Potassium 4.8. Bicarb 28. BUN 13. Creatinine 0.29. Glucose 121. She remains on DuoNeb inhalations, Symbicort, Solu-Medrol. Heparin for DVT prophylaxis. Plan is for right-sided Pleurx catheter placement today. Objective - Vital Signs Vital signs: Vital Signs Temp 98.3 F 05/31/24 07:13 Pulse 100 05/31/24 07:28 Resp 24 05/31/24 07:13 BP 126/81 05/31/24 07:13 Pulse Ox 96 05/31/24 07:13 FiO2 Intake & Output 05/30/24 05/31/24 05/31/24 18:59 06:59 18:59 Other: # Voids 2 3 - Exam GENERAL EXAM: Alert, frail, cachectic 68-year-old female, sitting up in bed, on 2 L nasal cannula, in no apparent distress. HEAD: Normocephalic. EYES: Normal reaction of pupils, equal size. NOSE: Clear with pink turbinates. THROAT: No erythema or exudates. NECK: No masses, no JVD. CHEST: No chest wall deformity. LUNGS: Equal air entry with rales bilaterally right greater than left. CVS: S1 and S2 normal with no audible murmur, regular rhythm. ABDOMEN: No hepatosplenomegaly, normal bowel sounds, no guarding or rigidity. SPINE: No scoliosis or deformity SKIN: No rashes CENTRAL NERVOUS SYSTEM: No focal deficits, tone is normal in all 4 extremities. EXTREMITIES: There is no peripheral edema. No clubbing, no cyanosis. Peripheral pulses are intact. - Labs CBC & Chem 7: 05/31/24 04:35 05/31/24 04:35 Labs: Abnormal Lab Results - Last 24 Hours (Table) 05/30/24 05/30/24 05/31/24 Range/Units 16:52 20:16 04:35 RDW 15.9 H (11.5-15.5) % Lymphocytes # 0.4 L (1.0-4.8) k/uL Sodium (137-145) mmol/L Chloride (98-107) mmol/L Creatinine (0.52-1.04) mg/dL Glucose (74-99) mg/dL POC Glucose (mg/dL) 151 H 147 H (70-110) mg/dL AST (14-36) U/L Alkaline Phosphatase (38-126) U/L Total Protein (6.3-8.2) g/dL Albumin (3.5-5.0) g/dL 05/31/24 05/31/24 Range/Units 04:35 07:11 RDW (11.5-15.5) % Lymphocytes # (1.0-4.8) k/uL Sodium 129 L (137-145) mmol/L Chloride 97 L (98-107) mmol/L Creatinine 0.29 L (0.52-1.04) mg/dL Glucose 121 H (74-99) mg/dL POC Glucose (mg/dL) 119 H (70-110) mg/dL AST 42 H (14-36) U/L Alkaline Phosphatase 205 H (38-126) U/L Total Protein 5.5 L (6.3-8.2) g/dL Albumin 3.3 L (3.5-5.0) g/dL Assessment and Plan Assessment: Acute on chronic hypoxic respiratory failure secondary to recurrent right-sided pleural effusion. Most recent thoracentesis on 05/11/2024 with 1 L of fluid removed. Positive for malignancy. Previous right-sided thoracentesis on 024. Plan is for Pleurx catheter to be placed May 31, 2024 History of malignant left-sided pleural effusion, requiring frequent previous thoracentesis, and eventual Pleurx catheter insertion on 01/14/2024. Patient has been previously draining her catheter weekly, however, over the last 2 weeks minimal output was noted. Frequent readmissions due to pain control issues and shortness of breath, discharged again on 05/20/2024 Metastatic breast cancer, most recent PET scan performed on 12/03/2023 identified new foci of uptake within the mediastinum and hilar lymph nodes, as well as new foci within the liver, osseous lesions including thoracic vertebral bodies and right ilium and left anterior rib and, as well as persistent uptake in the distal sigmoid colon, these findings are suspicious for disease progression and metastasis. She also has increased tumor marker levels as well. She was to have a follow-up PET scan and be restaged but has been hospitalized 3 times since then History of left-sided mastectomy Severe chronic obstructive pulmonary disease, most recent FEV1 47% of predicted, stable Chronic hypoxemic respiratory failure, maintained on 1-2 L/min nasal cannula while at home Former tobacco smoker, quitting approximately 2 months ago Hypothyroidism History of meningitis History of ovarian cyst Severe protein calorie malnutrition Plan: The patient was seen and evaluated Medications and labs reviewed Continue bronchodilators, steroids Adequate pain control Plan is for right-sided Pleurx catheter placement today We will continue to follow I have personally seen and examined the patient, performed the documentation and the assessment and plan as written. Number of minutes spent on the visit: 10.
[2024-05-31 12:47] VITALS: BMI 13.5
[2024-05-31] MEDS: IV FLUID CONTINUATION 1,000 ML IV ONE ×2 (13:45→14:25)
[2024-05-31] MEDS ORDERED: KETAMINE HCL IN 0.9 % NACL 50 MG/5 ML SYRINGE ONE (13:57)
[2024-05-31] MEDS ORDERED: ESMOLOL 100 MG/10 ML VIAL ONE (13:57)
[2024-05-31] MEDS ORDERED: ceFAZolin 1 GM/50 ML BAG (PMX) ONE (13:57)
[2024-05-31] MEDS ORDERED: MIDAZOLAM 2 MG/2 ML VIAL ONE (13:57)
[2024-05-31] MEDS ORDERED: fentaNYL (PF) 50 MCG/ML 2 ML AMP ONE (13:57)
--- NOTE | 2024-05-31 14:06 | PN ---
PROGRESS NOTE DATE OF SERVICE: 05/31/2024 SUBJECTIVE: This is a 68-year-old woman, who was admitted with shortness of breath and as well as pleural effusion on the right side, is scheduled for PleurX drainage. No chest pain. No palpitation. OBJECTIVE: VITAL SIGNS: Pulse 105, blood pressure 127/83, respirations 20. CHEST: A few scattered rhonchi and crackles. ABDOMEN: Soft. NERVOUS SYSTEM: Nonfocal. LABORATORY DATA: Sodium 129. ASSESSMENT: 1. Significant shortness of breath, possibly secondary to chronic obstructive pulmonary disease acute exacerbation as well as right pleural effusion, for PleurX drainage. 2. Left pleural effusion, on PleurX drainage. 3. Metastatic breast cancer. 4. Hyponatremia. 5. Severe malnutrition. 6. Multiple complex medical issues. RECOMMENDATIONS: Recommended to continue current medications, continue symptomatic treatment. Otherwise, continue with bronchodilators and steroids. Repeat labs. Further recommendations to follow. Closely follow with multiple consultants. JAVIER / RADHA: [id number] /
[2024-05-31] MEDS: SODIUM CHLORIDE 0.9% 50 ML with ceFAZolin 1,000 MG IV ONE (14:14)
--- NOTE | 2024-05-31 14:36 | FL ---
EXAMINATION TYPE: FL guidance operating room Intraoperative/procedural fluoroscopic services were pro vided. Total fluoroscopy time is 11.1 seconds with a total of 4 submitted images to PACS. Please see the operative/procedural note for further details. DAP: 0.4281 Gycm2
--- NOTE | 2024-05-31 14:39 | P.OP ---
Date of Procedure: 05/31/24 Preoperative Diagnosis: Stage IV Breast CA Recurrent right sided pleural effusion Postoperative Diagnosis: Same Procedure(s) Performed: Right sided pleurX placement under flouroscopy Implants: PleurX catheter - right Anesthesia: regional, local Surgeon: Tony Lazar Estimated Blood Loss (ml): 5 Pathology: none sent Condition: stable Disposition: PACU Indications for Procedure: This is a 68 year-old F with a hx of triple negative metastatic breast cancer who underwent a pleurX catheter placement for recurrent malignant pleural effusion on the left side. She now presents with recurrent right sided pleural effusion. She needs a pleurX on the right now. Operative Findings: 1500cc serous fluid removed Description of Procedure: The patient was brought to the operating room and placed supine. She was sedated and her right chest was prepped and draped. Antibiotics were given. I used 1% lidocaine to inject two areas over the costal margin and one posteriorly. I inserted the introducer needle and then the guidewire. This was confirmed with flouroscopy. Two incisions were made and the catheter was tunneled. It was then inserted into the chest via peel away sheath which was advanced over the wire under flouroscopy. Final x-ray confirmed good placement. 1500ml was drained.
--- NOTE | 2024-05-31 16:10 | XR ---
EXAMINATION TYPE: XR chest 1V portable DATE OF EXAM: 05/31/2024 Comparison: 05/29/2024 Clinical History: 68-year-old female Status post right Pleurx catheter placement Findings: Right anterior chest wall injection port with catheter tip at the lower SVC level. Heart normal size. Left apical pleural thickening is unchanged. Diffuse interstitial and patchy density is similar. Lef t basilar pleural catheter in place with small left pleural effusion. Right pleural catheter now plac ed with decrease in the previous moderate right pleural effusion. Residual small right effusion remai ns. There is a [id number] sized right-sided pneumothorax measuring 2.8 cm at the apex and 2.5 cm at the lung bases, estimated at 20%. Surgical clips projecting over the left axilla and chest wall . Hyperinflation. Impression: 1. COPD with ongoing interstitial and patchy opacities, possible interstitial pulmonary edema versus underlying pneumonitis. Clinically correlate. 2. Placement of right-sided pleural catheter now with improved, residual small effusion but with a sm all to moderate pneumothorax now demonstrated, estimated at 20%. 3. Left pleural catheter with similar small left pleural effusion.
[2024-05-31 17:09] LABS: Glucose,Whole Blood 129 mg/dL (70-110)
--- NOTE | 2024-05-31 19:46 | P.PN ---
Subjective Progress Note Date: 05/31/24 Principal diagnosis: Met breast adenocarcinoma In f/u pt cont to c/o abd pain, anxiety. Pending pleurex drain on the right today. Denies any respiratory complaints. Objective - Vital Signs Vital signs: Vital Signs Temp 98.3 F 05/31/24 07:13 Pulse 100 05/31/24 07:28 Resp 24 05/31/24 07:13 BP 126/81 05/31/24 07:13 Pulse Ox 96 05/31/24 07:13 FiO2 Intake & Output 05/30/24 05/31/24 05/31/24 18:59 06:59 18:59 Other: # Voids 2 3 - Constitutional General appearance: Present: cooperative, no acute distress, thin - EENT Eyes: Present: anicteric sclerae, EOMI ENT: Present: hearing grossly normal - Respiratory Details: resp even and unlabored at rest - Cardiovascular Details: skin warm and dry to touch - Peripheral edema leg Peripheral Edema: bilateral: None - Integumentary Integumentary: Present: pale - Neurologic Neurologic: Present: CNII-XII intact (grossly) - Musculoskeletal Musculoskeletal: Present: generalized weakness, strength equal bilaterally - Psychiatric Psychiatric: Absent: A&O x's 3, appropriate affect, intact judgment & insight - Labs CBC & Chem 7: 05/31/24 04:35 05/31/24 04:35 Labs: Abnormal Lab Results - Last 24 Hours (Table) 05/30/24 05/30/24 05/30/24 Range/Units 12:08 16:52 20:16 RDW (11.5-15.5) % Lymphocytes # (1.0-4.8) k/uL Sodium (137-145) mmol/L Chloride (98-107) mmol/L Creatinine (0.52-1.04) mg/dL Glucose (74-99) mg/dL POC Glucose (mg/dL) 142 H 151 H 147 H (70-110) mg/dL AST (14-36) U/L Alkaline Phosphatase (38-126) U/L Total Protein (6.3-8.2) g/dL Albumin (3.5-5.0) g/dL 05/31/24 05/31/24 05/31/24 Range/Units 04:35 04:35 07:11 RDW 15.9 H (11.5-15.5) % Lymphocytes # 0.4 L (1.0-4.8) k/uL Sodium 129 L (137-145) mmol/L Chloride 97 L (98-107) mmol/L Creatinine 0.29 L (0.52-1.04) mg/dL Glucose 121 H (74-99) mg/dL POC Glucose (mg/dL) 119 H (70-110) mg/dL AST 42 H (14-36) U/L Alkaline Phosphatase 205 H (38-126) U/L Total Protein 5.5 L (6.3-8.2) g/dL Albumin 3.3 L (3.5-5.0) g/dL Assessment and Plan (1) Cancer associated pain Current Visit: Yes Status: Acute Priority: High Code(s): G89.3 - NEOPLASM RELATED PAIN (ACUTE) (CHRONIC) SNOMED Code(s): 61115441400069 (2) Hyponatremia Current Visit: Yes Status: Acute Priority: High Code(s): E87.1 - HYPO- OSMOLALITY AND HYPONATREMIA SNOMED Code(s): 57407219 (3) Anxiety Current Visit: No Status: Acute Priority: High Code(s): F41.9 - ANXIETY DISORDER, UNSPECIFIED SNOMED Code(s): 38064552 (4) Metastasis from breast cancer Current Visit: No Status: Acute Priority: High Code(s): C79.9 - SECONDARY MALIGNANT NEOPLASM OF UNSPECIFIED SITE; C50.919 - MALIGNANT NEOPLASM OF UNSP SITE OF UNSPECIFIED FEMALE BREAST SNOMED Code(s): 531498431 Plan: Right-sided pleural effusion -CXR on admit notes significantly enlarged pleural effusion from chest x-ray on 05/14/2024 -Thoracentesis with cytology of right-sided pleural effusion performed on 05/11/2024 was consistent with metastatic breast cancer -Plan for right Pleurx catheter scheduled today Metastatic triple negative breast cancer -Progressed on adjuvant Xeloda/Keytruda -Completed 5 cycles of eribulin with last treatment on 05/04/2024 -She was noted to have progressive increase in CA 15-3 and CA 27-29 from March 2024 with abdominal imaging during her last admission revealing lesion in the liver concerning for metastases -PET/CT was performed on 05/26/2024 with official read pending. Per MD, she does appear to have increased bone metastases and new liver metastases not previously visualized -Given the radiographic findings as well as increased tumor markers, it is felt pt has disease progression. -Palliative trodelvy has been discussed. Pt would like to try -Clinic f/u upon discharge to further discuss goals of care and treatment options Cancer related pain from bone metastases -Converted to oral morphine ER 15mg BID, norco 10/325 cont Q 4 PRN. Pain seems to be controlled. Will cont to monitor and adjust according to pt tolerance -Colace 200 mg twice daily ordered as pt reporting infrequent BM -Encouraged pt to get rid of all pain meds she is no linger using, unable to tolerate so as to not get confused. Severe anxiety -Cont ativan 2mg TID -Added lexapro today. Will f/u on and see how pt does Doctor attests: I performed a history and physical examination of this patient, developed impression and plan of care. Discussed with dictator. I agree with dictators note, documented as a scribe.
[2024-05-31 19:56] LABS: Glucose,Whole Blood 114 mg/dL (70-110)
[2024-05-31] MEDS: DOCUSATE 100 MG CAP PO SCH (21:08)
[2024-06-01 07:01] LABS: Glucose,Whole Blood 101 mg/dL (70-110)
--- NOTE | 2024-06-01 08:45 | XR ---
EXAMINATION TYPE: XR chest 1V portable DATE OF EXAM: 06/01/2024 7:12 AM CLINICAL INDICATION:Female, 68 years old with history of Post op right Pleurx catheter placement; [facility] COMPARISON: Chest radiograph from one day prior. TECHNIQUE: XR chest 1V portable Frontal view of the chest. FINDINGS: Lungs/Pleura: There is no evidence of pleural effusion, focal consolidation, or pneumothorax. Pulmonary vascularity: Unremarkable. Heart/mediastinum: Cardiomediastinal silhouette is unremarkable. Musculoskeletal: No acute osseous pathology. Other findings: None Lines/Tubes: Bilateral thoracotomy tubes are present with right pneumothorax, left apical pleural effusion. Whizrh-g-Koif projecting over the right hemithorax with distal tip at the cavoatrial junction. IMPRESSION: Similar right pneumothorax and bilateral pleural effusions with bilateral thoracotomy tubes.
--- NOTE | 2024-06-01 09:32 | P.PN ---
Subjective Progress Note Date: 06/01/24 Principal diagnosis: Recurrent right sided malignant pleural effusion. Past medical history significant for metastatic triple negative ductal carcinoma of the left breast status post chemotherapy and left mastectomy in March 2023, recurrent left-sided malignant pleural effusion, status post thoracentesis and subsequent Pleurx catheter placement, right-sided malignant pleural effusion and subsequent thoracentesis on May 11, 2024, chronic obstructive pulmonary disease, history o f 40-year tobacco dependence, quit smoking in November 2023, and anxiety. POD #1 Right sided pleurX placement under flouroscopy. The patient was seen and examined in follow-up today June 01, 2024 at her bedside on the fifth floor medical oncology unit. The patient is currently laying in bed, is awake, alert, oriented x 3 and is in no acute apparent distress. She denies any complaints of shortness of breath at this time. But is complaining of some generalized pain, currently rating her pain 3 or 4 out of 10 on the pain scale. The patient reports that since her Pleurx catheter placement yesterday her breathing has improved significantly. Oxygen saturations are 97% on 2 L nasal cannula. 1.5 L of pleural fluid was drained with the Pleurx catheter placement yesterday. Chest x-ray results reviewed. Objective - Vital Signs Vital signs: Vital Signs Temp 97.9 F 06/01/24 07:02 Pulse 94 06/01/24 08:18 Resp 24 06/01/24 07:02 BP 117/77 06/01/24 07:02 Pulse Ox 97 06/01/24 08:05 FiO2 Intake & Output 05/31/24 06/01/24 06/01/24 18:59 06:59 18:59 Intake Total 400 720 Output Total 5 1500 Balance 395 -780 Weight 35.834 kg Intake: IV 400 Oral 720 Output: Urine 1500 Estimated Blood Loss 5 Other: Voiding Method Bedside Commode Bedpan # Voids 3 - Exam CONSTITUTIONAL: Appears comfortable, cooperative, no acute distress RESPIRATORY: Lungs sounds diminished bilaterally. Respirations even, nonlabored. Currently on 2 L nasal cannula with oxygen saturation 97%. Strong cough. CARDIOVASCULAR: S1, S2 present. Palpable peripheral pulses bilaterally. No edema present. No calf pain or tenderness noted. SCDs present. GASTROINTESTINAL: Abdomen soft, nontender, nondistended. Active bowel sounds present 4 quadrants. Tolerating diet. GENITOURINARY: Continues to void clear. INTEGUMENTARY: Skin is warm and dry with no clubbing or cyanosis. Right Pleurx catheter dressing is clean, dry and intact. NEUROLOGIC: Cranial nerves II through XII intact. MUSKULOSKELETAL: Able to move all extremities, strength equal bilaterally, gait normal, generalized weakness. PSYCHIATRIC: Alert and oriented to person place and time, appropriate affect, intact judgment and insight - Allied health notes Allied health notes reviewed: nursing - Labs CBC & Chem 7: 05/31/24 04:35 05/31/24 04:35 Labs: Abnormal Lab Results - Last 24 Hours (Table) 05/31/24 05/31/24 Range/Units 17:08 19:55 POC Glucose (mg/dL) 129 H 114 H (70-110) mg/dL - Imaging and Cardiology Chest x-ray: report reviewed, image reviewed Assessment and Plan Assessment: Recurrent right-sided malignant effusion status post 2 previous right thoracentesis last completed on May 11, 2024, status post right Pleurx catheter placement Generalized weakness Acute on chronic cancer pain History of metastatic triple negative ductal carcinoma of the left breast status post chemotherapy and left mastectomy in March 2023 Recurrent left-sided malignant pleural effusions status post thoracentesis and subsequent pleurx catheter placement COPD Previous tobacco dependence Anxiety Plan: Pleurx catheter drainage frequency dictated by patient symptoms, may be every day, every other day, weekly, or however often the patient is symptomatic. May shower daily, no tub baths/hot tubs. Pain control per current as needed orders managed by primary care. Medical management other comorbidities per primary care service. We will continue to follow the patient on an as-needed basis. Time with Patient: Less than 30
[2024-06-01 10:41] LABS: BUN/Creat Ratio 46.67 Ratio (12.00-20.00); Calcium 8.6 mg/dL (8.7-10.3); Carbon Dioxide 28.1 mmol/L (21.6-31.8); Chloride 99 mmol/L (96-109); Glucose 106 mg/dL (70-110); Potassium 4.9 mmol/L (3.5-5.5); Sodium 136 mmol/L (135-145)
[2024-06-01 10:42] LABS: Basophils # (A) 0.01 X 10*3/uL (0.00-0.10); Basophils % (A) 0.1 %; Eosinophils # (A) 0 X 10*3/uL (0.04-0.35); Eosinophils % (A) 0 %; HGB 11.3 g/dL (12.0-15.0); Lymphocytes # (A) 0.48 X 10*3/uL (0.90-5.00); Lymphocytes % (A) 4.1 %; MCHC 32.3 g/dL (32.0-37.0); MCV 95.9 FL (80.0-97.0); Mean Platelet Volume 10.6 FL (9.5-12.2); Monocytes # (A) 0.68 X 10*3/uL (0.20-1.00); Monocytes % (A) 5.7 %; NRBC Per 100 WBC 0 X 10*3/uL (0.00-0.01); Neutrophils # (A) 10.59 X 10*3/uL (1.80-7.70); Neutrophils % (A) 89.4 %; Platelet Count 156 X 10*3/uL (140-440); RBC 3.65 X 10*6/uL (4.10-5.20); RDW 16.1 % (11.5-14.5); WBC 11.84 X 10*3/uL (4.50-10.00)
[2024-06-01 12:04] LABS: Glucose,Whole Blood 126 mg/dL (70-110)
--- NOTE | 2024-06-01 13:05 | P.PN ---
Subjective Progress Note Date: 06/01/24 This is yet another admission for a 68-year-old female patient who was just discharged on May 20 2024 and prior to that she was discharged on May 12, 2024. She does have metastatic breast cancer with a PET scan from December showing new foci of uptake in the mediastinum and hilar lymph nodes as well as new foci in the liver, osseous lesions and thoracic thoracic vertebral bodies and right ilium and left anterior rib as well as persistent uptake in the distal sigmoid colon. Suspicious for disease progression. She has been having ongoing issues with pain control. She also has recurrent left-sided pleural effusion and had undergone a left Pleurx catheter placement on January 14, 2024. She has also had right-sided pleural effusions positive for metastatic disease with the last right-sided thoracentesis done on 05/11/2024. She came back to the emergency room today after mistakenly taking regular medication and not her pain medication which she states caused her to have more pain. Chest x-ray does reveal a recurrent right-sided pleural effusion. Left side with small stable pleural effusion. She is currently sitting up in bed. Awake and alert in no acute distress. Maintaining good O2 saturations in the 90s on 2 L/min per nasal cannula. She is afebrile. Hemodynamically stable. White count 7.1. Hemoglobin 11.9. Platelets 163. Sodium 129. Potassium 4.1. Bicarb 29. BUN 10. Creatinine 0.26. She has been initiated on morphine for pain control. She has normal saline at 75 MLS per hour. The patient is seen today May 30, 2024 in follow-up on the regular medical floor. She is sitting up in bed. Awake and alert in no acute distress. Maintaining O2 saturations in the 90s on 2 L/min per nasal cannula. No worsening shortness of breath, cough or congestion. The plan is for a right- sided Pleurx catheter to be placed tomorrow. Glucose 142. Hemoglobin A1c 5.5%. She remains on DuoNeb inhalations, Symbicort, Solu-Medrol. Heparin for DVT prophylaxis. The patient is seen today May 31, 2024 in follow-up on the regular medical floor. She is awake and alert in no acute distress. Sitting up in bed. She denies any worsening shortness of breath, cough or congestion. Her pain is better controlled. She is maintaining good O2 saturations in the upper 90s on 3 L nasal cannula. Afebrile. Hemodynamically stable. White count 6.3. Hemoglobin 11.9. Platelets 192. Sodium 129. Potassium 4.8. Bicarb 28. BUN 13. Creatinine 0.29. Glucose 121. She remains on DuoNeb inhalations, Symbicort, Solu-Medrol. Heparin for DVT prophylaxis. Plan is for right-sided Pleurx catheter placement today. The patient is seen today June 01, 2024 in follow-up on the regular medical floor. She is currently sitting up in bed. Awake and alert in no acute distress. Maintaining O2 saturations in the 90s on 2 L/min per nasal cannula. She did undergo a right-sided Pleurx catheter placement yesterday with 1.4 L of fluid removed. Denies any worsening shortness of breath, cough or congestion. She is continued on DuoNeb inhalations, Symbicort, Solu-Medrol. Heparin for DVT prophylaxis. Her pain is well-controlled. Remains on Marinol. Currently eating breakfast. White count 11.8. Hemoglobin 11.3. Platelets 156. Sodium 136. Potassium 4.9. Bicarb 28. BUN 14. Creatinine 0.3. Glucose 106. Today's chest x-ray reveals similar right pneumothorax and bilateral pleural effusions with bilateral thoracotomy tubes. Objective - Vital Signs Vital signs: Vital Signs Temp 97.9 F 06/01/24 07:02 Pulse 98 06/01/24 11:57 Resp 24 06/01/24 07:02 BP 117/77 06/01/24 07:02 Pulse Ox 97 06/01/24 08:05 FiO2 Intake & Output 05/31/24 06/01/24 06/01/24 18:59 06:59 18:59 Intake Total 400 720 Output Total 5 1500 Balance 395 -780 Weight 35.834 kg Intake: IV 400 Oral 720 Output: Urine 1500 Estimated Blood Loss 5 Other: Voiding Method Bedside Commode Bedpan # Voids 3 - Exam GENERAL EXAM: Alert, frail, cachectic 68-year-old female, on 2 L nasal cannula, in no apparent distress. HEAD: Normocephalic. EYES: Normal reaction of pupils, equal size. NOSE: Clear with pink turbinates. THROAT: No erythema or exudates. NECK: No masses, no JVD. CHEST: No chest wall deformity. LUNGS: Equal air entry with rales bilaterally right greater than left. Bilateral Pleurx catheters in place. CVS: S1 and S2 normal with no audible murmur, regular rhythm. ABDOMEN: No hepatosplenomegaly, normal bowel sounds, no guarding or rigidity. SPINE: No scoliosis or deformity SKIN: No rashes CENTRAL NERVOUS SYSTEM: No focal deficits, tone is normal in all 4 extremities. EXTREMITIES: There is no peripheral edema. No clubbing, no cyanosis. Peripheral pulses are intact. - Labs CBC & Chem 7: 06/01/24 06:07 06/01/24 06:07 Labs: Abnormal Lab Results - Last 24 Hours (Table) 05/31/24 05/31/24 06/01/24 Range/Units 17:08 19:55 06:07 WBC 11.84 H (4.50-10.00) X 10*3/uL RBC 3.65 L (4.10-5.20) X 10*6/uL Hgb 11.3 L (12.0-15.0) g/dL Hct 35.0 L (37.2-46.3) % RDW 16.1 H (11.5-14.5) % Immature Gran # 0.08 H (0.00-0.04) X 10*3/uL Neutrophils # 10.59 H (1.80-7.70) X 10*3/uL Lymphocytes # 0.48 L (0.90-5.00) X 10*3/uL Eosinophils # 0 L (0.04-0.35) X 10*3/uL Creatinine (0.6-1.5) mg/dL BUN/Creatinine Ratio (12.00-20.00) Ratio POC Glucose (mg/dL) 129 H 114 H (70-110) mg/dL Calcium (8.7-10.3) mg/dL 06/01/24 06/01/24 Range/Units 06:07 12:03 WBC (4.50-10.00) X 10*3/uL RBC (4.10-5.20) X 10*6/uL Hgb (12.0-15.0) g/dL Hct (37.2-46.3) % RDW (11.5-14.5) % Immature Gran # (0.00-0.04) X 10*3/uL Neutrophils # (1.80-7.70) X 10*3/uL Lymphocytes # (0.90-5.00) X 10*3/uL Eosinophils # (0.04-0.35) X 10*3/uL Creatinine 0.3 L (0.6-1.5) mg/dL BUN/Creatinine Ratio 46.67 H (12.00-20.00) Ratio POC Glucose (mg/dL) 126 H (70-110) mg/dL Calcium 8.6 L (8.7-10.3) mg/dL Assessment and Plan Assessment: Acute on chronic hypoxic respiratory failure secondary to recurrent right-sided pleural effusion. Most recent thoracentesis on 05/11/2024 with 1 L of fluid removed. Positive for malignancy. Previous right-sided thoracentesis on 02/24/2024. Pleurx catheter to be placed May 31, 2024 1.4 L of fluid removed. X-ray reveals similar right pneumothorax and bilateral pleural effusions with bilateral thoracotomy tubes History of malignant left-sided pleural effusion, requiring frequent previous thoracentesis, and eventual Pleurx catheter insertion on 01/14/2024. Patient has been previously draining her catheter weekly, however, over the last 2 weeks minimal output was noted. Frequent readmissions due to pain control issues and shortness of breath, discharged again on 05/20/2024 Metastatic breast cancer, most recent PET scan performed on 12/03/2023 identified new foci of uptake within the mediastinum and hilar lymph nodes, as well as new foci within the liver, osseous lesions including thoracic vertebral bodies and right ilium and left anterior rib and, as well as persistent uptake in the distal sigmoid colon, these findings are suspicious for disease progression and metastasis. She also has increased tumor marker levels as well. She was to have a follow-up PET scan and be restaged but has been hospitalized 3 times since then History of left-sided mastectomy Severe chronic obstructive pulmonary disease, most recent FEV1 47% of predicted, stable Chronic hypoxemic respiratory failure, maintained on 1-2 L/min nasal cannula while at home Former tobacco smoker, quitting approximately 2 months ago Hypothyroidism History of meningitis History of ovarian cyst Severe protein calorie malnutrition Plan: The patient was seen and evaluated Chest x-ray, medications and labs reviewed Continue bronchodilators, steroids Adequate pain control Cleared for discharge from the pulmonary standpoint Continue her home oxygen, pulmonary medications Completed prednisone taper Follow-up in our office in 1 week I have personally seen and examined the patient, performed the documentation and the assessment and plan as written. Number of minutes spent on the visit: 10.
[2024-06-01 17:05] LABS: Glucose,Whole Blood 132 mg/dL (70-110)
[2024-06-01 20:23] LABS: Glucose,Whole Blood 152 mg/dL (70-110)
--- NOTE | 2024-06-01 22:57 | PN ---
PROGRESS NOTE DATE OF SERVICE: 06/01/2024 SUBJECTIVE: This 68-year-old woman admitted with significant shortness of breath secondary to COPD as well as right pleural effusion, had a PleurX drainage inserted on the right side by Dr. Regan. No chest pain, no palpitation. OBJECTIVE: VITAL SIGNS: Pulse is 105, blood pressure 118/69, respirations 24. CHEST: Bilateral scattered rhonchi. ABDOMEN: Soft, nontender. NERVOUS SYSTEM: Nonfocal. LABORATORY DATA: Reviewed. ASSESSMENT: 1. Significant shortness of breath, possibly secondary to COPD acute exacerbation as well as slight pleural effusion, status post PleurX drainage. 2. Left pleural effusion on PleurX drainage. 3. Metastatic breast cancer. 4. Hyponatremia. 5. Severe malnutrition. 6. Multiple complex medical issues. RECOMMENDATIONS AND DISCUSSION: Recommended to continue current treatment, continue bronchodilators, steroids. Closely follow with Pulmonary. Guarded prognosis. Further recommendations to follow. MMODL / IJN: [id number] /
[2024-06-02 07:18] LABS: Glucose,Whole Blood 88 mg/dL (70-110)
[2024-06-02] MEDS: predniSONE 10 MG TAB PO SCH (08:53)
--- NOTE | 2024-06-02 08:58 | XR ---
EXAMINATION TYPE: XR chest 1V portable DATE OF EXAM: 06/02/2024 HISTORY: Shortness of breath. COMPARISON: 06/01/2024 TECHNIQUE: Single view of the chest is submitted. FINDINGS: Persistent right apical pneumothorax with apical pleural distance of 2.7 cm versus 2.8 cm previously. Right basilar chest tube is in place. There is also a left basilar chest tube without sizable left-s ided pneumothorax. Bilateral pleural effusions and basilar infiltrates persist. Left apical capping n oted. The heart is stable. Hilar and mediastinal structures are within normal limits. Degenerative changes are seen of the dorsal spine. IMPRESSION: 1. Essentially stable chest.
[2024-06-02 10:41] LABS: Basophils # (A) 0.02 X 10*3/uL (0.00-0.10); Basophils % (A) 0.2 %; Eosinophils # (A) 0.01 X 10*3/uL (0.04-0.35); Eosinophils % (A) 0.1 %; HCT 36.5 % (37.2-46.3); HGB 11.7 g/dL (12.0-15.0); Lymphocytes % (A) 12.3 %; MCH 31.7 pg (27.0-32.0); MCHC 32.1 g/dL (32.0-37.0); MCV 98.9 FL (80.0-97.0); Monocytes % (A) 8.9 %; NRBC Per 100 WBC 0 X 10*3/uL (0.00-0.01); Neutrophils # (A) 6.91 X 10*3/uL (1.80-7.70); Neutrophils % (A) 77.3 %; Platelet Count 129 X 10*3/uL (140-440); RBC 3.69 X 10*6/uL (4.10-5.20); RDW 16.3 % (11.5-14.5); WBC 8.95 X 10*3/uL (4.50-10.00)
[2024-06-02 10:55] LABS: Blood Urea Nitrogen 12.9 mg/dL (9.0-27.0); Calcium 8.6 mg/dL (8.7-10.3); Carbon Dioxide 29.6 mmol/L (21.6-31.8); Chloride 97 mmol/L (96-109); Glucose 78 mg/dL (70-110); Potassium 4.5 mmol/L (3.5-5.5); Sodium 134 mmol/L (135-145)
[2024-06-02 12:04] LABS: Glucose,Whole Blood 101 mg/dL (70-110)
[2024-06-02] MEDS: LORazepam 1 MG TAB PO ONE (12:40)
--- NOTE | 2024-06-02 14:05 | P.PN ---
Subjective Progress Note Date: 06/02/24 This is yet another admission for a 68-year-old female patient who was just discharged on May 20 2024 and prior to that she was discharged on May 12, 2024. She does have metastatic breast cancer with a PET scan from December showing new foci of uptake in the mediastinum and hilar lymph nodes as well as new foci in the liver, osseous lesions and thoracic thoracic vertebral bodies and right ilium and left anterior rib as well as persistent uptake in the distal sigmoid colon. Suspicious for disease progression. She has been having ongoing issues with pain control. She also has recurrent left-sided pleural effusion and had undergone a left Pleurx catheter placement on January 14, 2024. She has also had right-sided pleural effusions positive for metastatic disease with the last right-sided thoracentesis done on 05/11/2024. She came back to the emergency room today after mistakenly taking regular medication and not her pain medication which she states caused her to have more pain. Chest x-ray does reveal a recurrent right-sided pleural effusion. Left side with small stable pleural effusion. She is currently sitting up in bed. Awake and alert in no acute distress. Maintaining good O2 saturations in the 90s on 2 L/min per nasal cannula. She is afebrile. Hemodynamically stable. White count 7.1. Hemoglobin 11.9. Platelets 163. Sodium 129. Potassium 4.1. Bicarb 29. BUN 10. Creatinine 0.26. She has been initiated on morphine for pain control. She has normal saline at 75 MLS per hour. The patient is seen today May 30, 2024 in follow-up on the regular medical floor. She is sitting up in bed. Awake and alert in no acute distress. Maintaining O2 saturations in the 90s on 2 L/min per nasal cannula. No worsening shortness of breath, cough or congestion. The plan is for a right- sided Pleurx catheter to be placed tomorrow. Glucose 142. Hemoglobin A1c 5.5%. She remains on DuoNeb inhalations, Symbicort, Solu-Medrol. Heparin for DVT prophylaxis. The patient is seen today May 31, 2024 in follow-up on the regular medical floor. She is awake and alert in no acute distress. Sitting up in bed. She denies any worsening shortness of breath, cough or congestion. Her pain is better controlled. She is maintaining good O2 saturations in the upper 90s on 3 L nasal cannula. Afebrile. Hemodynamically stable. White count 6.3. Hemoglobin 11.9. Platelets 192. Sodium 129. Potassium 4.8. Bicarb 28. BUN 13. Creatinine 0.29. Glucose 121. She remains on DuoNeb inhalations, Symbicort, Solu-Medrol. Heparin for DVT prophylaxis. Plan is for right-sided Pleurx catheter placement today. The patient is seen today June 01, 2024 in follow-up on the regular medical floor. She is currently sitting up in bed. Awake and alert in no acute distress. Maintaining O2 saturations in the 90s on 2 L/min per nasal cannula. She did undergo a right-sided Pleurx catheter placement yesterday with 1.4 L of fluid removed. Denies any worsening shortness of breath, cough or congestion. She is continued on DuoNeb inhalations, Symbicort, Solu-Medrol. Heparin for DVT prophylaxis. Her pain is well-controlled. Remains on Marinol. Currently eating breakfast. White count 11.8. Hemoglobin 11.3. Platelets 156. Sodium 136. Potassium 4.9. Bicarb 28. BUN 14. Creatinine 0.3. Glucose 106. Today's chest x-ray reveals similar right pneumothorax and bilateral pleural effusions with bilateral thoracotomy tubes. The patient is seen today June 02, 2024 in follow-up on the regular medical floor. She is awake and alert in no acute distress sitting up in bed. Having some right-sided chest pain. Chest x-ray is stable today does not show any significant pneumothorax. She now has right and left Pleurx Catheters in Place. She is maintaining good O2 saturations in the mid 90s on 2 L/min per nasal cannula. She is afebrile. Hemodynamically stable. Count 8.9. Hemoglobin 11.7. Platelets 129. Sodium 134. Potassium 4.5. Bicarb 30. BUN 13. Creatinine 0.3. Glucose 78. She is continued on DuoNeb inhalations, Symbicort, prednisone taper. Heparin for DVT prophylaxis. Objective - Vital Signs Vital signs: Vital Signs Temp 98.4 F 06/02/24 13:27 Pulse 108 H 06/02/24 13:27 Resp 20 06/02/24 13:27 BP 101/65 06/02/24 13:27 Pulse Ox 95 06/02/24 13:27 FiO2 Intake & Output 06/01/24 06/02/24 06/02/24 18:59 06:59 18:59 Intake Total 830 Balance 830 Intake: Oral 830 Other: Voiding Method Bedside Commode # Voids 2 2 1 - Exam GENERAL EXAM: Alert, frail, cachectic 68-year-old female, sitting in bed, on 2 L nasal cannula, in no apparent distress. HEAD: Normocephalic. EYES: Normal reaction of pupils, equal size. NOSE: Clear with pink turbinates. THROAT: No erythema or exudates. NECK: No masses, no JVD. CHEST: No chest wall deformity. LUNGS: Equal air entry with rales bilaterally right greater than left. Bilateral Pleurx catheters in place. CVS: S1 and S2 normal with no audible murmur, regular rhythm. ABDOMEN: No hepatosplenomegaly, normal bowel sounds, no guarding or rigidity. SPINE: No scoliosis or deformity SKIN: No rashes CENTRAL NERVOUS SYSTEM: No focal deficits, tone is normal in all 4 extremities. EXTREMITIES: There is no peripheral edema. No clubbing, no cyanosis. Peripheral pulses are intact. - Labs CBC & Chem 7: 06/02/24 05:47 06/02/24 05:47 Labs: Abnormal Lab Results - Last 24 Hours (Table) 06/01/24 06/01/24 06/02/24 Range/Units 17:04 20:21 05:47 RBC 3.69 L (4.10-5.20) X 10*6/uL Hgb 11.7 L (12.0-15.0) g/dL Hct 36.5 L (37.2-46.3) % MCV 98.9 H (80.0-97.0) FL RDW 16.3 H (11.5-14.5) % Plt Count 129 L (140-440) X 10*3/uL Immature Gran # 0.11 H (0.00-0.04) X 10*3/uL Eosinophils # 0.01 L (0.04-0.35) X 10*3/uL Sodium (135-145) mmol/L Creatinine (0.6-1.5) mg/dL BUN/Creatinine Ratio (12.00-20.00) Ratio POC Glucose (mg/dL) 132 H 152 H (70-110) mg/dL Calcium (8.7-10.3) mg/dL 06/02/24 Range/Units 05:47 RBC (4.10-5.20) X 10*6/uL Hgb (12.0-15.0) g/dL Hct (37.2-46.3) % MCV (80.0-97.0) FL RDW (11.5-14.5) % Plt Count (140-440) X 10*3/uL Immature Gran # (0.00-0.04) X 10*3/uL Eosinophils # (0.04-0.35) X 10*3/uL Sodium 134 L (135-145) mmol/L Creatinine 0.3 L (0.6-1.5) mg/dL BUN/Creatinine Ratio 43.00 H (12.00-20.00) Ratio POC Glucose (mg/dL) (70-110) mg/dL Calcium 8.6 L (8.7-10.3) mg/dL Assessment and Plan Assessment: Acute on chronic hypoxic respiratory failure secondary to recurrent right-sided pleural effusion. Most recent thoracentesis on 05/11/2024 with 1 L of fluid removed. Positive for malignancy. Previous right-sided thoracentesis on 02/24/2024. Pleurx catheter to be placed May 31, 2024 1.4 L of fluid removed. X-ray reveals similar right pneumothorax and bilateral pleural effusions with bilateral thoracotomy tubes History of malignant left-sided pleural effusion, requiring frequent previous thoracentesis, and eventual Pleurx catheter insertion on 01/14/2024. Patient has been previously draining her catheter weekly, however, over the last 2 weeks minimal output was noted. Frequent readmissions due to pain control issues and shortness of breath, discharged again on 05/20/2024 Metastatic breast cancer, most recent PET scan performed on 12/03/2023 identified new foci of uptake within the mediastinum and hilar lymph nodes, as well as new foci within the liver, osseous lesions including thoracic vertebral bodies and right ilium and left anterior rib and, as well as persistent uptake in the distal sigmoid colon, these findings are suspicious for disease progression and metastasis. She also has increased tumor marker levels as well. She was to have a follow-up PET scan and be restaged but has been hospitalized 3 times since then History of left-sided mastectomy Severe chronic obstructive pulmonary disease, most recent FEV1 47% of predicted, stable Chronic hypoxemic respiratory failure, maintained on 1-2 L/min nasal cannula while at home Former tobacco smoker, quitting approximately 2 months ago Hypothyroidism History of meningitis History of ovarian cyst Severe protein calorie malnutrition Plan: The patient was seen and evaluated Chest x-ray, medications and labs reviewed Continue bronchodilators, steroids Adequate pain control Cleared for discharge Continue home oxygen, pulmonary medications Complete a prednisone taper Follow-up in our office in 1 week I have personally seen and examined the patient, performed the documentation and the assessment and plan as written. Number of minutes spent on the visit: 10.
[2024-06-02 17:08] LABS: Glucose,Whole Blood 99 mg/dL (70-110)
[2024-06-02 20:20] LABS: Glucose,Whole Blood 108 mg/dL (70-110)
--- NOTE | 2024-06-02 21:37 | P.PN ---
Subjective Progress Note Date: 06/02/24 Principal diagnosis: Met breast adenocarcinoma In f/u pt states she "bottomed out". She does not feel well in gerneral, no specific c/o. Her pain is controlled, her breathing is better after the 2nd pleurex placed. Objective - Vital Signs Vital signs: Vital Signs Temp 98.4 F 06/02/24 13:27 Pulse 108 H 06/02/24 13:27 Resp 20 06/02/24 13:27 BP 101/65 06/02/24 13:27 Pulse Ox 95 06/02/24 13:27 FiO2 Intake & Output 06/01/24 06/02/24 06/02/24 18:59 06:59 18:59 Intake Total 830 Balance 830 Intake: Oral 830 Other: Voiding Method Bedside Commode # Voids 2 2 1 - Constitutional General appearance: Present: cooperative, mild distress, thin - EENT Eyes: Present: anicteric sclerae, EOMI ENT: Present: hearing grossly normal - Respiratory Details: Labored, open mouth breathing at rest - Cardiovascular Details: extremities cool to touch - Integumentary Integumentary Comment(s): yadav Integumentary: Present: pale - Neurologic Neurologic: Present: CNII-XII intact - Musculoskeletal Musculoskeletal: Present: generalized weakness - Psychiatric Psychiatric Comment(s): anxious Psychiatric: Present: A&O x's 3, intact judgment & insight - Labs CBC & Chem 7: 06/02/24 05:47 06/02/24 05:47 Labs: Abnormal Lab Results - Last 24 Hours (Table) 06/01/24 06/01/24 06/02/24 Range/Units 17:04 20:21 05:47 RBC 3.69 L (4.10-5.20) X 10*6/uL Hgb 11.7 L (12.0-15.0) g/dL Hct 36.5 L (37.2-46.3) % MCV 98.9 H (80.0-97.0) FL RDW 16.3 H (11.5-14.5) % Plt Count 129 L (140-440) X 10*3/uL Immature Gran # 0.11 H (0.00-0.04) X 10*3/uL Eosinophils # 0.01 L (0.04-0.35) X 10*3/uL Sodium (135-145) mmol/L Creatinine (0.6-1.5) mg/dL BUN/Creatinine Ratio (12.00-20.00) Ratio POC Glucose (mg/dL) 132 H 152 H (70-110) mg/dL Calcium (8.7-10.3) mg/dL 06/02/24 Range/Units 05:47 RBC (4.10-5.20) X 10*6/uL Hgb (12.0-15.0) g/dL Hct (37.2-46.3) % MCV (80.0-97.0) FL RDW (11.5-14.5) % Plt Count (140-440) X 10*3/uL Immature Gran # (0.00-0.04) X 10*3/uL Eosinophils # (0.04-0.35) X 10*3/uL Sodium 134 L (135-145) mmol/L Creatinine 0.3 L (0.6-1.5) mg/dL BUN/Creatinine Ratio 43.00 H (12.00-20.00) Ratio POC Glucose (mg/dL) (70-110) mg/dL Calcium 8.6 L (8.7-10.3) mg/dL Assessment and Plan (1) Cancer associated pain Current Visit: Yes Status: Acute Priority: High Code(s): G89.3 - NEOPLASM RELATED PAIN (ACUTE) (CHRONIC) SNOMED Code(s): 12860628370755 (2) Hyponatremia Current Visit: Yes Status: Acute Priority: High Code(s): E87.1 - HYPO-OSMOLALITY AND HYPONATREMIA SNOMED Code(s): 83828588 (3) Anxiety Current Visit: No Status: Acute Priority: High Code(s): F41.9 - ANXIETY DISORDER, UNSPECIFIED SNOMED Code(s): 39645457 (4) Metastasis from breast cancer Current Visit: No Status: Acute Priority: High Code(s): C79.9 - SECONDARY MALIGNANT NEOPLASM OF UNSPECIFIED SITE; C50.919 - MALIGNANT NEOPLASM OF UNSP SITE OF UNSPECIFIED FEMALE BREAST SNOMED Code(s): 739610165 Plan: Right-sided pleural effusion -CXR on admit notes significantly enlarged pleural effusion from chest x-ray on 05/14/2024 -Thoracentesis with cytology of right-sided pleural effusion performed on 05/11/2024 was consistent with metastatic breast cancer -S/P right Pleurx catheter, pt reports breathing feels easier Metastatic triple negative breast cancer -Progressed on adjuvant Xeloda/Keytruda -Completed 5 cycles of eribulin with last treatment on 05/04/2024 -She was noted to have progressive increase in CA 15-3 and CA 27-29 from March 2024 with abdominal imaging during her last admission revealing lesion in the liver concerning for metastases -PET/CT was performed on 05/26/2024 with official read pending. Per MD, she does appear to have increased bone metastases and new liver metastases not previously visualized -Given the radiographic findings as well as increased tumor markers, it is felt pt has disease progression. -Palliative trodelvy has been discussed. Pt would like to try -Clinic f/u upon discharge is scheduled to further discuss goals of care and treatment options Cancer related pain from bone metastases -Converted to oral morphine ER 15mg BID, norco 10/325 cont Q 4 PRN. Pain seems to be controlled. Will cont to monitor and adjust according to pt tolerance -Colace 200 mg twice daily ordered. BM 2 days ago, no immediate concerns for constipation Severe anxiety -Cont ativan 2mg TID -Added lexapro. Pt was less tearful during our talk today. Cont for now We had long discussion today. Concerned that pt is declining, she looks terrible today. She voiced that she does not want to , she and her have things to figure out. I encouraged her to start having some of these tough talks. We talked about senior sustainability advisor and she is very interested. Have requested spiritual care to meet with pt and meet with .
[2024-06-03 07:00] LABS: Glucose,Whole Blood 84 mg/dL (70-110)
--- NOTE | 2024-06-03 09:55 | P.PN ---
Subjective Patient is a pleasant 68 years old female with metastatic breast cancer to the liver, spines ribs status post left mastectomy She has history of COPD as well. She presents because of recurrent right-sided malignant pleural effusion s/p Pleurx catheter placed. Patient today looks anxious and mildly tachypneic and she does not feel comfortable going rectal tomorrow. Will try to give her Ativan 1 extra dose 1 mg but that did not help. She is already on 2 mg 3 times daily. Patient denies any other complaint Pleurx catheter in place and is working Possible discharge in 24 hours if patient remains stable Objective - Vital Signs Vital signs: Vital Signs Temp 98.4 F 06/02/24 13:27 Pulse 112 H 06/02/24 18:43 Resp 20 06/02/24 13:27 BP 101/65 06/02/24 13:27 Pulse Ox 95 06/02/24 13:27 FiO2 Intake & Output 06/01/24 06/02/24 06/02/24 18:59 06:59 18:59 Intake Total 830 Balance 830 Intake: Oral 830 Other: Voiding Method Bedside Commode # Voids 2 2 1 - Exam -GENERAL: The patient is alert and oriented x3, not in any acute distress. W cachectic HEENT: Pupils are round and equally reacting to light. EOMI. No scleral icterus. No conjunctival pallor. Normocephalic, atraumatic. No pharyngeal erythema. No thyromegaly. CARDIOVASCULAR: S1 and S2 present. No murmurs, rubs, or gallops. -PULMONARY: Chest is clear to auscultation, no wheezing , no crackles. PleurX catheter in place ABDOMEN: Soft, nontender, nondistended, normoactive bowel sounds. No palpable organomegaly. MUSCULOSKELETAL: No joint swelling or deformity. EXTREMITIES: No cyanosis, clubbing, or pedal edema. NEUROLOGICAL: Gross neurological examination did not reveal any focal deficits. SKIN: No rashes. no petechiae. - Labs CBC & Chem 7: 06/02/24 05:47 06/02/24 05:47 Labs: Abnormal Lab Results - Last 24 Hours (Table) 06/01/24 06/02/24 06/02/24 Range/Units 20:21 05:47 05:47 RBC 3.69 L (4.10-5.20) X 10*6/uL Hgb 11.7 L (12.0-15.0) g/dL Hct 36.5 L (37.2-46.3) % MCV 98.9 H (80.0-97.0) FL RDW 16.3 H (11.5-14.5) % Plt Count 129 L (140-440) X 10*3/uL Immature Gran # 0.11 H (0.00-0.04) X 10*3/uL Eosinophils # 0.01 L (0.04-0.35) X 10*3/uL Sodium 134 L (135-145) mmol/L Creatinine 0.3 L (0.6-1.5) mg/dL BUN/Creatinine Ratio 43.00 H (12.00-20.00) Ratio POC Glucose (mg/dL) 152 H (70-110) mg/dL Calcium 8.6 L (8.7-10.3) mg/dL Assessment and Plan Assessment: Recurrent right malignant pleural effusion status post Pleurx catheter History of malignant left pleural effusion s/p Pleurx catheter on 01/2024, currently with little discharge Metastatic breast cancer s/p l mastectomy. With metastatic disease to the liver spine and ribs Plan: Continue with Ativan Pleurx catheter in place and is working Pulmonary and oncology team on the case Patient did not want to go home today and wants to wait till tomorrow. Pain controlled DVT and GI prophylaxis Prognosis is guarded
--- NOTE | 2024-06-03 11:34 | P.PN ---
Subjective Progress Note Date: 06/03/24 This is yet another admission for a 68-year-old female patient who was just discharged on May 20 2024 and prior to that she was discharged on May 12, 2024. She does have metastatic breast cancer with a PET scan from December showing new foci of uptake in the mediastinum and hilar lymph nodes as well as new foci in the liver, osseous lesions and thoracic thoracic vertebral bodies and right ilium and left anterior rib as well as persistent uptake in the distal sigmoid colon. Suspicious for disease progression. She has been having ongoing issues with pain control. She also has recurrent left-sided pleural effusion and had undergone a left Pleurx catheter placement on January 14, 2024. She has also had right-sided pleural effusions positive for metastatic disease with the last right-sided thoracentesis done on 05/11/2024. She came back to the emergency room today after mistakenly taking regular medication and not her pain medication which she states caused her to have more pain. Chest x-ray does reveal a recurrent right-sided pleural effusion. Left side with small stable pleural effusion. She is currently sitting up in bed. Awake and alert in no acute distress. Maintaining good O2 saturations in the 90s on 2 L/min per nasal cannula. She is afebrile. Hemodynamically stable. White count 7.1. Hemoglobin 11.9. Platelets 163. Sodium 129. Potassium 4.1. Bicarb 29. BUN 10. Creatinine 0.26. She has been initiated on morphine for pain control. She has normal saline at 75 MLS per hour. The patient is seen today May 30, 2024 in follow-up on the regular medical floor. She is sitting up in bed. Awake and alert in no acute distress. Maintaining O2 saturations in the 90s on 2 L/min per nasal cannula. No worsening shortness of breath, cough or congestion. The plan is for a right- sided Pleurx catheter to be placed tomorrow. Glucose 142. Hemoglobin A1c 5.5%. She remains on DuoNeb inhalations, Symbicort, Solu-Medrol. Heparin for DVT prophylaxis. The patient is seen today May 31, 2024 in follow-up on the regular medical floor. She is awake and alert in no acute distress. Sitting up in bed. She denies any worsening shortness of breath, cough or congestion. Her pain is better controlled. She is maintaining good O2 saturations in the upper 90s on 3 L nasal cannula. Afebrile. Hemodynamically stable. White count 6.3. Hemoglobin 11.9. Platelets 192. Sodium 129. Potassium 4.8. Bicarb 28. BUN 13. Creatinine 0.29. Glucose 121. She remains on DuoNeb inhalations, Symbicort, Solu-Medrol. Heparin for DVT prophylaxis. Plan is for right-sided Pleurx catheter placement today. The patient is seen today June 01, 2024 in follow-up on the regular medical floor. She is currently sitting up in bed. Awake and alert in no acute distress. Maintaining O2 saturations in the 90s on 2 L/min per nasal cannula. She did undergo a right-sided Pleurx catheter placement yesterday with 1.4 L of fluid removed. Denies any worsening shortness of breath, cough or congestion. She is continued on DuoNeb inhalations, Symbicort, Solu-Medrol. Heparin for DVT prophylaxis. Her pain is well-controlled. Remains on Marinol. Currently eating breakfast. White count 11.8. Hemoglobin 11.3. Platelets 156. Sodium 136. Potassium 4.9. Bicarb 28. BUN 14. Creatinine 0.3. Glucose 106. Today's chest x-ray reveals similar right pneumothorax and bilateral pleural effusions with bilateral thoracotomy tubes. The patient is seen today June 02, 2024 in follow-up on the regular medical floor. She is awake and alert in no acute distress sitting up in bed. Having some right-sided chest pain. Chest x-ray is stable today does not show any significant pneumothorax. She now has right and left Pleurx Catheters in Place. She is maintaining good O2 saturations in the mid 90s on 2 L/min per nasal cannula. She is afebrile. Hemodynamically stable. Count 8.9. Hemoglobin 11.7. Platelets 129. Sodium 134. Potassium 4.5. Bicarb 30. BUN 13. Creatinine 0.3. Glucose 78. She is continued on DuoNeb inhalations, Symbicort, prednisone taper. Heparin for DVT prophylaxis. The patient is seen today June 03, 2024 in follow-up on the regular medical f anamaria. She remains awake and alert in no acute distress. Denies any worsening shortness of breath, cough or congestion. Denies any pain currently. She is more comfortable. She is maintaining O2 saturations in the 90s on 2 L/min per nasal cannula. She remains on DuoNeb inhalations, Symbicort. Heparin for DVT prophylaxis. She is on a prednisone taper. Glucose 84. Objective - Vital Signs Vital signs: Vital Signs Temp 98.1 F 06/03/24 06:57 Pulse 115 H 06/03/24 08:51 Resp 19 06/03/24 08:00 BP 121/80 06/03/24 06:57 Pulse Ox 97 06/03/24 06:57 FiO2 Intake & Output 06/02/24 06/03/24 06/03/24 18:59 06:59 18:59 Intake Total 590 Balance 590 Intake: Oral 590 Other: Voiding Method Bedside Commode Bedside Commode # Voids 1 1 - Exam GENERAL EXAM: Alert, frail, cachectic 68-year-old female, on 2 L nasal cannula, in no apparent distress. HEAD: Normocephalic. EYES: Normal reaction of pupils, equal size. NOSE: Clear with pink turbinates. THROAT: No erythema or exudates. NECK: No masses, no JVD. CHEST: No chest wall deformity. LUNGS: Equal air entry with rales bilaterally right greater than left. Bilateral Pleurx catheters in place. CVS: S1 and S2 normal with no audible murmur, regular rhythm. ABDOMEN: No hepatosplenomegaly, normal bowel sounds, no guarding or rigidity. SPINE: No scoliosis or deformity SKIN: No rashes CENTRAL NERVOUS SYSTEM: No focal deficits, tone is normal in all 4 extremities. EXTREMITIES: There is no peripheral edema. No clubbing, no cyanosis. Peripheral pulses are intact. - Labs CBC & Chem 7: 06/02/24 05:47 06/02/24 05:47 Assessment and Plan Assessment: Acute on chronic hypoxic respiratory failure secondary to recurrent right-sided pleural effusion. Most recent thoracentesis on 05/11/2024 with 1 L of fluid removed. Positive for malignancy. Previous right-sided thoracentesis on 02/24/2024. Pleurx catheter to be placed May 31, 2024 1.4 L of fluid removed. X-ray reveals similar right pneumothorax and bilateral pleural effusions with bilateral thoracotomy tubes History of malignant left-sided pleural effusion, requiring frequent previous thoracentesis, and eventual Pleurx catheter insertion on 01/14/2024. Patient has been previously draining her catheter weekly, however, over the last 2 weeks minimal output was noted. Frequent readmissions due to pain control issues and shortness of breath, discharged again on 05/20/2024 Metastatic breast cancer, most recent PET scan performed on 12/03/2023 identified new foci of uptake within the mediastinum and hilar lymph nodes, as well as new foci within the liver, osseous lesions including thoracic vertebral bodies and right ilium and left anterior rib and, as well as persistent uptake in the distal sigmoid colon, these findings are suspicious for disease progression and metastasis. She also has increased tumor marker levels as well. She was to have a follow-up PET scan and be restaged but has been hospitalized 3 times since then History of left-sided mastectomy Severe chronic obstructive pulmonary disease, most recent FEV1 47% of predicted, stable Chronic hypoxemic respiratory failure, maintained on 1-2 L/min nasal cannula while at home Former tobacco smoker, quitting approximately 2 months ago Hypothyroidism History of meningitis History of ovarian cyst Severe protein calorie malnutrition Plan: The patient was seen and evaluated Medications and labs reviewed Cleared for discharge Continue home oxygen, pulmonary medications Complete a prednisone taper Follow-up in our office in 1 week This patient was seen independently by the pulmonary nurse practitioner addressing pulmonary issues I have personally seen and examined the patient, performed the documentation and the assessment and plan as written. Number of minutes spent on the visit: 24.
[2024-06-03 12:10] LABS: Glucose,Whole Blood 112 mg/dL (70-110)
[2024-06-03 12:39] LABS: African American GFR (CKD) >90 (>60 ml/min/1.73 sqM); Anion Gap 2 mmol/L; Blood Urea Nitrogen 12 mg/dL (7-17); Calcium 8.3 mg/dL (8.4-10.2); Carbon Dioxide 30 mmol/L (22-30); Chloride 93 mmol/L (98-107); Glucose 112 mg/dL (74-99); Non-African American GFR(CKD) >90 (>60 ml/min/1.73 sqM); Sodium 125 mmol/L (137-145)
[2024-06-03 12:53] LABS: Basophils % (A) 0 %; Eosinophils # (A) 0.1 k/uL (0-0.7); Eosinophils % (A) 1 %; HCT 37.4 % (34.0-46.0); Hypochromasia Slight; Lymphocytes # (A) 0.3 k/uL (1.0-4.8); Lymphocytes % (A) 4 %; MCHC 32.1 g/dL (31.0-37.0); MCV 96.4 fL (80.0-100.0); Mean Platelet Volume 8.4; Monocytes # (A) 0.4 k/uL (0-1.0); Monocytes % (A) 5 %; Neutrophils # (A) 6.7 k/uL (1.3-7.7); Neutrophils % (A) 90 %; Platelet Count 107 k/uL (150-450); RBC 3.89 m/uL (3.80-5.40); WBC 7.5 k/uL (3.8-10.6)
[2024-06-03] MEDS: SODIUM CHLORIDE 0.9% 1,000 ML IV SCH (16:32)
[2024-06-03 17:13] LABS: Glucose,Whole Blood 112 mg/dL (70-110)
--- NOTE | 2024-06-03 18:00 | P.PN ---
Subjective Progress Note Date: 06/03/24 Pt more lethargic today. Wakes to tactile stimuli, but easily falls asleep. Denies pain and SOB. States anxiety is better today Sodium 125 today. Normal saline infusion started Objective - Vital Signs Vital signs: Vital Signs Temp 98.1 F 06/03/24 06:57 Pulse 116 H 06/03/24 11:39 Resp 19 06/03/24 08:00 BP 121/80 06/03/24 06:57 Pulse Ox 97 06/03/24 06:57 FiO2 Intake & Output 06/02/24 06/03/24 06/03/24 18:59 06:59 18:59 Intake Total 590 Balance 590 Intake: Oral 590 Other: Voiding Method Bedside Commode Bedside Commode # Voids 1 1 - Constitutional General appearance: Present: no acute distress, thin - EENT Eyes: Present: EOMI ENT: Present: hearing grossly normal - Respiratory Details: breathing even and unlabored - Cardiovascular Details: skin warm and dry - Integumentary Integumentary: Absent: cyanotic, jaundiced - Musculoskeletal Musculoskeletal: Present: generalized weakness - Labs CBC & Chem 7: 06/03/24 11:31 06/03/24 11:31 Labs: Abnormal Lab Results - Last 24 Hours (Table) 06/03/24 06/03/24 06/03/24 Range/Units 11:31 11:31 12:08 RDW 16.0 H (11.5-15.5) % Plt Count 107 L (150-450) k/uL Lymphocytes # 0.3 L (1.0-4.8) k/uL Sodium 125 L (137-145) mmol/L Chloride 93 L (98-107) mmol/L Creatinine 0.28 L (0.52-1.04) mg/dL Glucose 112 H (74-99) mg/dL POC Glucose (mg/dL) 112 H (70-110) mg/dL Calcium 8.3 L (8.4-10.2) mg/dL - Imaging and Cardiology Chest x-ray: report reviewed Assessment and Plan (1) Hyponatremia Current Visit: Yes Status: Acute Priority: High Code(s): E87.1 - HYPO- OSMOLALITY AND HYPONATREMIA SNOMED Code(s): 29998496 (2) Malignant neoplasm of breast metastatic to liver Current Visit: Yes Status: Acute Priority: High Code(s): C50.919 - MALIGNANT NEOPLASM OF UNSP SITE OF UNSPECIFIED FEMALE BREAST; C78.7 - SECONDARY MALIG NEOPLASM OF LIVER AND INTRAHEPATIC BILE DUCT SNOMED Code(s): 81008412 (3) Pleural effusion Current Visit: Yes Status: Acute Priority: High Code(s): J90 - PLEURAL EFFUSION, NOT ELSEWHERE CLASSIFIED SNOMED Code(s): 39388895 (4) Cancer associated pain Current Visit: Yes Status: Acute Priority: High Code(s): G89.3 - NEOPLASM RELATED PAIN (ACUTE) (CHRONIC) SNOMED Code(s): 78919738771158 Plan: Right-sided pleural effusion -CXR on admit notes significantly enlarged pleural effusion from chest x-ray on 05/14/2024 -Thoracentesis with cytology of right-sided pleural effusion performed on 05/11/2024 was consistent with metastatic breast cancer -S/P right Pleurx catheter, pt reports breathing feels easier Metastatic triple negative breast cancer -Progressed on adjuvant Xeloda/Keytruda -Completed 5 cycles of eribulin with last treatment on 05/04/2024 -She was noted to have progressive increase in CA 15-3 and CA 27-29 from March 2024 with abdominal imaging during her last admission revealing lesion in the liver concerning for metastases -PET/CT was performed on 05/26/2024 with official read pending. Per MD, she does appear to have increased bone metastases and new liver metastases not previously visualized -Given the radiographic findings as well as increased tumor markers, it is felt pt has disease progression. -Palliative trodelvy has been discussed. Pt would like to try -Clinic f/u upon discharge is scheduled to further discuss goals of care and treatment options Cancer related pain from bone metastases -Converted to oral morphine ER 15mg BID, norco 10/325 cont Q 4 PRN. Pain seems to be controlled. Will cont to monitor and adjust according to pt tolerance -Colace 200 mg twice daily. Miralax prn Severe anxiety -Cont Ativan 2mg TID -Added lexapro -Patient seems less anxious today, reporting improvement We had long discussion with patient. Concerned that pt is declining. She voiced that she does not want to , she and her "have things to figure out." I encouraged her to start having some of these tough talks. 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 Have requested spiritual care to meet with pt and .
--- NOTE | 2024-06-03 20:04 | P.PN ---
Subjective Progress Note Date: 06/03/24 Patient is a pleasant 68 years old female with metastatic breast cancer to the liver, spines ribs status post left mastectomy She has history of COPD as well. She presents because of recurrent right-sided malignant pleural effusion s/p Pleurx catheter placed. Patient today looks anxious and mildly tachypneic and she does not feel comfortable going rectal tomorrow. Will try to give her Ativan 1 extra dose 1 mg but that did not help. She is already on 2 mg 3 times daily. Patient denies any other complaint Pleurx catheter in place and is working Possible discharge in 24 hours if patient remains stable 06/03/2024 Patient is evaluated today in follow up on the medical floor. Patient reports feeling less short of breath today. Pleurex catheter in place and had 1.4 L of fluid removed. Sodium down to 125 today. Heart rate 111. REVIEW OF SYSTEMS: CONSTITUTIONAL: No fever, no malaise, no fatigue. HEENT: No recent visual problems or hearing problems. Denied any sore throat. CARDIOVASCULAR: No chest pain, orthopnea, PND, no palpitations, no syncope. PULMONARY: Reports shortness of breath, no cough, no hemoptysis. GASTROINTESTINAL: No diarrhea, no nausea, no vomiting, no abdominal pain. NEUROLOGICAL: No headaches, no weakness, no numbness. Physical Examination -GENERAL: The patient is alert and oriented x3, not in any acute distress. cachectic HEENT: Pupils are round and equally reacting to light. EOMI. No scleral icterus. No conjunctival pallor. Normocephalic, atraumatic. No pharyngeal erythema. No thyromegaly. CARDIOVASCULAR: S1 and S2 present. No murmurs, rubs, or gallops. -PULMONARY: Chest is clear to auscultation, no wheezing , no crackles. PleurX catheter in place ABDOMEN: Soft, nontender, nondistended, normoactive bowel sounds. No palpable organomegaly. MUSCULOSKELETAL: No joint swelling or deformity. EXTREMITIES: No cyanosis, clubbing, or pedal edema. NEUROLOGICAL: Gross neurological examination did not reveal any focal deficits. SKIN: No rashes. no petechiae. Assessment and Plan Assessment -Recurrent right malignant pleural effusion status post Pleurx catheter -Acute on chronic hypoxic respiratory failure from above -History of malignant left pleural effusion s/p Pleurx catheter on 01/2024, currently with little discharge -Metastatic breast cancer s/p l mastectomy. With metastatic disease to the liver spine and ribs -Oxygen dependent COPD without any acute exacerbation. -Severe protein calorie malnutrition from cancer, Continue on marinol. GI prophylaxis DVT prophylaxis Full Code Plan Continue with Ativan Pleurx catheter in place and is working. Pulmonary and oncology team on the case Discharge held due to the low sodium and patient will be started on normal saline at 75 mls.hr Pain controlled and patient will continue on MS Contin Repeat BMP in the AM The impression and plan of care has been dictated by Chelsea Rhodes, Nurse Pr actitioner as directed. Dr. Almaz MD I have performed a history and physical examination and medical decision making of this patient, discussed the same with the dictator, and agree with the dicta tors assessment and plan as written, documented as a scribe. Based on total visit time, I have performed more than 50% of this visit. Objective - Vital Signs Vital signs: Vital Signs Temp 98.1 F 06/03/24 18:56 Pulse 111 H 06/03/24 18:56 Resp 15 06/03/24 18:56 BP 130/86 06/03/24 18:56 Pulse Ox 97 06/03/24 18:56 FiO2 Intake & Output 06/03/24 06/03/24 06/04/24 06:59 18:59 06:59 Intake Total 590 Balance 590 Weight 35.834 kg Intake: Oral 590 Other: Voiding Method Bedside Commode Bedside Commode # Voids 1 3 # Bowel Movements 2 - Labs CBC & Chem 7: 06/03/24 11:31 06/03/24 11:31 Labs: Abnormal Lab Results - Last 24 Hours (Table) 06/03/24 06/03/24 06/03/24 Range/Units 11:31 11:31 12:08 RDW 16.0 H (11.5-15.5) % Plt Count 107 L (150-450) k/uL Lymphocytes # 0.3 L (1.0-4.8) k/uL Sodium 125 L (137-145) mmol/L Chloride 93 L (98-107) mmol/L Creatinine 0.28 L (0.52-1.04) mg/dL Glucose 112 H (74-99) mg/dL POC Glucose (mg/dL) 112 H (70-110) mg/dL Calcium 8.3 L (8.4-10.2) mg/dL 06/03/24 Range/Units 17:11 RDW (11.5-15.5) % Plt Count (150-450) k/uL Lymphocytes # (1.0-4.8) k/uL Sodium (137-145) mmol/L Chloride (98-107) mmol/L Creatinine (0.52-1.04) mg/dL Glucose (74-99) mg/dL POC Glucose (mg/dL) 112 H (70-110) mg/dL Calcium (8.4-10.2) mg/dL Assessment and Plan Time with Patient: Less than 30
[2024-06-03 20:09] LABS: Glucose,Whole Blood 87 mg/dL (70-110)
[2024-06-04 07:20] LABS: Glucose,Whole Blood 76 mg/dL (70-110)
[2024-06-04] MEDS: LORazepam 1 MG TAB PO PRN ×2 (08:55→14:04)
--- NOTE | 2024-06-04 10:02 | P.PN ---
Subjective Progress Note Date: 06/04/24 This is yet another admission for a 68-year-old female patient who was just discharged on May 20 2024 and prior to that she was discharged on May 12, 2024. She does have metastatic breast cancer with a PET scan from December showing new foci of uptake in the mediastinum and hilar lymph nodes as well as new foci in the liver, osseous lesions and thoracic thoracic vertebral bodies and right ilium and left anterior rib as well as persistent uptake in the distal sigmoid colon. Suspicious for disease progression. She has been having ongoing issues with pain control. She also has recurrent left-sided pleural effusion and had undergone a left Pleurx catheter placement on January 14, 2024. She has also had right-sided pleural effusions positive for metastatic disease with the last right-sided thoracentesis done on 05/11/2024. She came back to the emergency room today after mistakenly taking regular medication and not her pain medication which she states caused her to have more pain. Chest x-ray does reveal a recurrent right-sided pleural effusion. Left side with small stable pleural effusion. She is currently sitting up in bed. Awake and alert in no acute distress. Maintaining good O2 saturations in the 90s on 2 L/min per nasal cannula. She is afebrile. Hemodynamically stable. White count 7.1. Hemoglobin 11.9. Platelets 163. Sodium 129. Potassium 4.1. Bicarb 29. BUN 10. Creatinine 0.26. She has been initiated on morphine for pain control. She has normal saline at 75 MLS per hour. The patient is seen today May 30, 2024 in follow-up on the regular medical floor. She is sitting up in bed. Awake and alert in no acute distress. Maintaining O2 saturations in the 90s on 2 L/min per nasal cannula. No worsening shortness of breath, cough or congestion. The plan is for a right- sided Pleurx catheter to be placed tomorrow. Glucose 142. Hemoglobin A1c 5.5%. She remains on DuoNeb inhalations, Symbicort, Solu-Medrol. Heparin for DVT prophylaxis. The patient is seen today May 31, 2024 in follow-up on the regular medical floor. She is awake and alert in no acute distress. Sitting up in bed. She denies any worsening shortness of breath, cough or congestion. Her pain is better controlled. She is maintaining good O2 saturations in the upper 90s on 3 L nasal cannula. Afebrile. Hemodynamically stable. White count 6.3. Hemoglobin 11.9. Platelets 192. Sodium 129. Potassium 4.8. Bicarb 28. BUN 13. Creatinine 0.29. Glucose 121. She remains on DuoNeb inhalations, Symbicort, Solu-Medrol. Heparin for DVT prophylaxis. Plan is for right-sided Pleurx catheter placement today. The patient is seen today June 01, 2024 in follow-up on the regular medical floor. She is currently sitting up in bed. Awake and alert in no acute distress. Maintaining O2 saturations in the 90s on 2 L/min per nasal cannula. She did undergo a right-sided Pleurx catheter placement yesterday with 1.4 L of fluid removed. Denies any worsening shortness of breath, cough or congestion. She is continued on DuoNeb inhalations, Symbicort, Solu-Medrol. Heparin for DVT prophylaxis. Her pain is well-controlled. Remains on Marinol. Currently eating breakfast. White count 11.8. Hemoglobin 11.3. Platelets 156. Sodium 136. Potassium 4.9. Bicarb 28. BUN 14. Creatinine 0.3. Glucose 106. Today's chest x-ray reveals similar right pneumothorax and bilateral pleural effusions with bilateral thoracotomy tubes. The patient is seen today June 02, 2024 in follow-up on the regular medical floor. She is awake and alert in no acute distress sitting up in bed. Having some right-sided chest pain. Chest x-ray is stable today does not show any significant pneumothorax. She now has right and left Pleurx Catheters in Place. She is maintaining good O2 saturations in the mid 90s on 2 L/min per nasal cannula. She is afebrile. Hemodynamically stable. Count 8.9. Hemoglobin 11.7. Platelets 129. Sodium 134. Potassium 4.5. Bicarb 30. BUN 13. Creatinine 0.3. Glucose 78. She is continued on DuoNeb inhalations, Symbicort, prednisone taper. Heparin for DVT prophylaxis. The patient is seen today June 03, 2024 in follow-up on the regular medical f anam[place]. She remains awake and alert in no acute distress. Denies any worsening shortness of breath, cough or congestion. Denies any pain currently. She is more comfortable. She is maintaining O2 saturations in the 90s on 2 L/min per nasal cannula. She remains on DuoNeb inhalations, Symbicort. Heparin for DVT prophylaxis. She is on a prednisone taper. Glucose 84. The patient is seen today June 04, 2024 in follow-up on the regular medical floor. She is sitting up in bed. Awake and alert in no acute distress. She continues to maintain good O2 saturations in the 90s on 2 L/min per nasal cannula. She denies any worsening shortness of breath, cough or congestion. Yesterday her sodium dropped to 125. Potassium 4.0. Bicarb 30. BUN 12. Creatinine 0.28. White count 7.5. Hemoglobin 12.0. She was initiated on normal saline at 75 MLS per hour. Today's labs are pending. Heart. Heparin for DVT prophylaxis. [place] and morphine for pain control. Objective - Vital Signs Vital signs: Vital Signs Temp 98.1 F 06/04/24 07:20 Pulse 109 H 06/04/24 08:38 Resp 22 06/04/24 07:20 BP 122/76 06/04/24 07:20 Pulse Ox 93 L 06/04/24 08:26 FiO2 Intake & Output 06/03/24 06/04/24 06/04/24 18:59 06:59 18:59 Weight 35.834 kg Other: Voiding Method Bedside Commode Bedside Commode # Voids 3 2 # Bowel Movements 2 - Exam GENERAL EXAM: Alert, cachectic 68-year-old female, sitting up in bed, comfortable, on 2 L nasal cannula, in no apparent distress. HEAD: Normocephalic. EYES: Normal reaction of pupils, equal size. NOSE: Clear with pink turbinates. THROAT: No erythema or exudates. NECK: No masses, no JVD. CHEST: No chest wall deformity. LUNGS: Equal air entry with rales bilaterally right greater than left. Bilateral Pleurx catheters in place. CVS: S1 and S2 normal with no audible murmur, regular rhythm. ABDOMEN: No hepatosplenomegaly, normal bowel sounds, no guarding or rigidity. SPINE: No scoliosis or deformity SKIN: No rashes CENTRAL NERVOUS SYSTEM: No focal deficits, tone is normal in all 4 extremities. EXTREMITIES: There is no peripheral edema. No clubbing, no cyanosis. Peripheral pulses are intact. - Labs CBC & Chem 7: 06/03/24 11:31 06/03/24 11:31 Labs: Abnormal Lab Results - Last 24 Hours (Table) 06/03/24 06/03/24 06/03/24 Range/Units 11:31 11:31 12:08 RDW 16.0 H (11.5-15.5) % Plt Count 107 L (150-450) k/uL Lymphocytes # 0.3 L (1.0-4.8) k/uL Sodium 125 L (137-145) mmol/L Chloride 93 L (98-107) mmol/L Creatinine 0.28 L (0.52-1.04) mg/dL Glucose 112 H (74-99) mg/dL POC Glucose (mg/dL) 112 H (70-110) mg/dL Calcium 8.3 L (8.4-10.2) mg/dL 06/03/24 Range/Units 17:11 RDW (11.5-15.5) % Plt Count (150-450) k/uL Lymphocytes # (1.0-4.8) k/uL Sodium (137-145) mmol/L Chloride (98-107) mmol/L Creatinine (0.52-1.04) mg/dL Glucose (74-99) mg/dL POC Glucose (mg/dL) 112 H (70-110) mg/dL Calcium (8.4-10.2) mg/dL Assessment and Plan Assessment: Acute on chronic hypoxic respiratory failure secondary to recurrent right-sided pleural effusion. Most recent thoracentesis on 05/11/2024 with 1 L of fluid removed. Positive for malignancy. Previous right-sided thoracentesis on 02/24/2024. Pleurx catheter to be placed May 31, 2024 1.4 L of fluid removed. X-ray reveals similar right pneumothorax and bilateral pleural effusions with bilateral thoracotomy tubes History of malignant left-sided pleural effusion, requiring frequent previous thoracentesis, and eventual Pleurx catheter insertion on 01/14/2024. Patient has been previously draining her catheter weekly, however, over the last 2 weeks minimal output was noted. Frequent readmissions due to pain control issues and shortness of breath, discharged again on 05/20/2024 Metastatic breast cancer, most recent PET scan performed on 12/03/2023 identified new foci of uptake within the mediastinum and hilar lymph nodes, as well as new foci within the liver, osseous lesions including thoracic vertebral bodies and right ilium and left anterior rib and, as well as persistent uptake in the distal sigmoid colon, these findings are suspicious for disease progression and metastasis. She also has increased tumor marker levels as well. She was to have a follow-up PET scan and be restaged but has been hospitalized 3 times since then History of left-sided mastectomy Severe chronic obstructive pulmonary disease, most recent FEV1 47% of predicted, stable Chronic hypoxemic respiratory failure, maintained on 1-2 L/min nasal cannula while at home Former tobacco smoker, quitting approximately 2 months ago Hypothyroidism History of meningitis History of ovarian cyst Severe protein calorie malnutrition Hyponatremia, current sodium 125 Plan: The patient was seen and evaluated Medications and labs reviewed Decrease normal saline to KVO 1200 mL fluid restriction Follow-up basic metabolic panel pending This patient was seen independently by the pulmonary nurse practitioner addressing pulmonary issues I have personally seen and examined the patient, performed the documentation and the assessment and plan as written. Number of minutes spent on the visit: 23.
[2024-06-04] MEDS: METOPROLOL TARTRATE 12.5 MG TAB PO SCH (11:07)
[2024-06-04 12:21] LABS: Glucose,Whole Blood 109 mg/dL (70-110)
[2024-06-04 14:25] LABS: Blood Urea Nitrogen 4.3 mg/dL (9.0-27.0); Calcium 4.8 mg/dL (8.7-10.3); Carbon Dioxide 17.4 mmol/L (21.6-31.8); Chloride 114 mmol/L (96-109); Glucose 50 mg/dL (70-110); Potassium 2.3 mmol/L (3.5-5.5); Sodium 140 mmol/L (135-145)
--- NOTE | 2024-06-04 15:17 | P.PN ---
Subjective Progress Note Date: 06/04/24 Patient is a pleasant 68 years old female with metastatic breast cancer to the liver, spines ribs status post left mastectomy She has history of COPD as well. She presents because of recurrent right-sided malignant pleural effusion s/p Pleurx catheter placed. Patient today looks anxious and mildly tachypneic and she does not feel comfortable going rectal tomorrow. Will try to give her Ativan 1 extra dose 1 mg but that did not help. She is already on 2 mg 3 times daily. Patient denies any other complaint Pleurx catheter in place and is working Possible discharge in 24 hours if patient remains stable 06/03/2024 Patient is evaluated today in follow up on the medical floor. Patient reports feeling less short of breath today. Pleurex catheter in place and had 1.4 L of fluid removed. Sodium down to 125 today. Heart rate 111. 06/04/2024 Patient is evaluated today in follow-up on the medical floor. She is continue to have significant anxiety requesting an increase in her Ativan we will go up to 3 times a day. Patient continues to report feeling short of breath as well as anxious and scared. Her sodium today is up to 140 we will stop the normal saline at this time. Heart rate remains elevated in the 1 teens. Labs today reveal a potassium level 2.3 and a calcium level of 4.8. REVIEW OF SYSTEMS: CONSTITUTIONAL: No fever, no malaise, no fatigue. HEENT: No recent visual problems or hearing problems. Denied any sore throat. CARDIOVASCULAR: No chest pain, orthopnea, PND, no palpitations, no syncope. PULMONARY: Reports shortness of breath, no cough, no hemoptysis. GASTROINTESTINAL: No diarrhea, no nausea, no vomiting, no abdominal pain. NEUROLOGICAL: No headaches, no weakness, no numbness. Physical Examination -GENERAL: The patient is alert and oriented x3, not in any acute distress. cachectic HEENT: Pupils are round and equally reacting to light. EOMI. No scleral icterus. No conjunctival pallor. Normocephalic, atraumatic. No pharyngeal erythema. No thyromegaly. CARDIOVASCULAR: S1 and S2 present. No murmurs, rubs, or gallops. -PULMONARY: Chest is clear to auscultation, no wheezing , no crackles. PleurX catheter in place ABDOMEN: Soft, nontender, nondistended, normoactive bowel sounds. No palpable organomegaly. MUSCULOSKELETAL: No joint swelling or deformity. EXTREMITIES: No cyanosis, clubbing, or pedal edema. NEUROLOGICAL: Gross neurological examination did not reveal any focal deficits. SKIN: No rashes. no petechiae. Assessment and Plan Assessment -Recurrent right malignant pleural effusion status post Pleurx catheter -Acute on chronic hypoxic respiratory failure from above -History of malignant left pleural effusion s/p Pleurx catheter on 01/2024, currently with little discharge -Metastatic breast cancer s/p l mastectomy. With metastatic disease to the liver spine and ribs -Oxygen dependent COPD without any acute exacerbation. -Severe protein calorie malnutrition from cancer, Continue on marinol. -Hyponatremia hypovolemic improved with normal saline -Hypokalemia, hypocalcemia GI prophylaxis DVT prophylaxis Full Code Plan Continue with Ativan increase up to 1 mg TID. Pleurx catheter in place and is working. Pulmonary and oncology team on the case Sodium is improved up to 140 recommend to stop IV fluids at this time Pain controlled and patient will continue on MS Contin Replace potassium and calcium. Repeat BMP in the AM The impression and plan of care has been dictated by Chelsea Rhodes Nurse Practitioner as directed. Dr. Almaz MD I have performed a history and physical examination and medical decision making of this patient, discussed the same with the dictator, and agree with the dictators assessment and plan as written, documented as a scribe. Based on total visit time, I have performed more than 50% of this visit. Objective - Vital Signs Vital signs: Vital Signs Temp 97.8 F 06/04/24 14:03 Pulse 99 06/04/24 14:03 Resp 23 06/04/24 14:03 BP 121/75 06/04/24 14:03 Pulse Ox 91 L 06/04/24 14:03 FiO2 Intake & Output 06/03/24 06/04/24 06/04/24 18:59 06:59 18:59 Weight 35.834 kg Other: Voiding Method Bedside Commode Bedside Commode Bedside Commode # Voids 3 2 # Bowel Movements 2 - Labs CBC & Chem 7: 06/03/24 11:31 06/04/24 03:51 Labs: Abnormal Lab Results - Last 24 Hours (Table) 06/03/24 06/04/24 Range/Units 17:11 03:51 Potassium 2.3 A* (3.5-5.5) mmol/L Chloride 114 H (96-109) mmol/L Carbon Dioxide 17.4 L (21.6-31.8) mmol/L BUN 4.3 L (9.0-27.0) mg/dL Creatinine <0.2 L (0.6-1.5) mg/dL Glucose 50 L (70-110) mg/dL POC Glucose (mg/dL) 112 H (70-110) mg/dL Calcium 4.8 A* (8.7-10.3) mg/dL Assessment and Plan Time with Patient: Less than 30
[2024-06-04] MEDS: POTASSIUM CHLORIDE ER 20 MEQ TAB.ER PO SCH (15:19)
[2024-06-04] MEDS: CALCIUM GLUCONATE IN NACL 2 GM in SALINE 1 100ML.BAG IVPB ONE (16:20)
[2024-06-04 17:28] LABS: Glucose,Whole Blood 132 mg/dL (70-110)
[2024-06-04 20:21] LABS: Glucose,Whole Blood 108 mg/dL (70-110)
[2024-06-05 07:29] LABS: Glucose,Whole Blood 96 mg/dL (70-110)
[2024-06-05 09:40] LABS: Magnesium 1.9 mg/dL (1.5-2.4)
[2024-06-05 09:41] LABS: BUN/Creat Ratio 27.33 Ratio (12.00-20.00); Blood Urea Nitrogen 8.2 mg/dL (9.0-27.0); Calcium 8.9 mg/dL (8.7-10.3); Carbon Dioxide 28.3 mmol/L (21.6-31.8); Chloride 95 mmol/L (96-109); Glucose 87 mg/dL (70-110); Potassium 5.4 mmol/L (3.5-5.5); Sodium 131 mmol/L (135-145)
--- NOTE | 2024-06-05 09:44 | P.PN ---
Subjective Progress Note Date: 06/05/24 This is yet another admission for a 68-year-old female patient who was just discharged on May 20 2024 and prior to that she was discharged on May 12, 2024. She does have metastatic breast cancer with a PET scan from December showing new foci of uptake in the mediastinum and hilar lymph nodes as well as new foci in the liver, osseous lesions and thoracic thoracic vertebral bodies and right ilium and left anterior rib as well as persistent uptake in the distal sigmoid colon. Suspicious for disease progression. She has been having ongoing issues with pain control. She also has recurrent left-sided pleural effusion and had undergone a left Pleurx catheter placement on January 14, 2024. She has also had right-sided pleural effusions positive for metastatic disease with the last right-sided thoracentesis done on 05/11/2024. She came back to the emergency room today after mistakenly taking regular medication and not her pain medication which she states caused her to have more pain. Chest x-ray does reveal a recurrent right-sided pleural effusion. Left side with small stable pleural effusion. She is currently sitting up in bed. Awake and alert in no acute distress. Maintaining good O2 saturations in the 90s on 2 L/min per nasal cannula. She is afebrile. Hemodynamically stable. White count 7.1. Hemoglobin 11.9. Platelets 163. Sodium 129. Potassium 4.1. Bicarb 29. BUN 10. Creatinine 0.26. She has been initiated on morphine for pain control. She has normal saline at 75 MLS per hour. The patient is seen today May 30, 2024 in follow-up on the regular medical floor. She is sitting up in bed. Awake and alert in no acute distress. Maintaining O2 saturations in the 90s on 2 L/min per nasal cannula. No worsening shortness of breath, cough or congestion. The plan is for a right- sided Pleurx catheter to be placed tomorrow. Glucose 142. Hemoglobin A1c 5.5%. She remains on DuoNeb inhalations, Symbicort, Solu-Medrol. Heparin for DVT prophylaxis. The patient is seen today May 31, 2024 in follow-up on the regular medical floor. She is awake and alert in no acute distress. Sitting up in bed. She denies any worsening shortness of breath, cough or congestion. Her pain is better controlled. She is maintaining good O2 saturations in the upper 90s on 3 L nasal cannula. Afebrile. Hemodynamically stable. White count 6.3. Hemoglobin 11.9. Platelets 192. Sodium 129. Potassium 4.8. Bicarb 28. BUN 13. Creatinine 0.29. Glucose 121. She remains on DuoNeb inhalations, Symbicort, Solu-Medrol. Heparin for DVT prophylaxis. Plan is for right-sided Pleurx catheter placement today. The patient is seen today June 01, 2024 in follow-up on the regular medical floor. She is currently sitting up in bed. Awake and alert in no acute distress. Maintaining O2 saturations in the 90s on 2 L/min per nasal cannula. She did undergo a right-sided Pleurx catheter placement yesterday with 1.4 L of fluid removed. Denies any worsening shortness of breath, cough or congestion. She is continued on DuoNeb inhalations, Symbicort, Solu-Medrol. Heparin for DVT prophylaxis. Her pain is well-controlled. Remains on Marinol. Currently eating breakfast. White count 11.8. Hemoglobin 11.3. Platelets 156. Sodium 136. Potassium 4.9. Bicarb 28. BUN 14. Creatinine 0.3. Glucose 106. Today's chest x-ray reveals similar right pneumothorax and bilateral pleural effusions with bilateral thoracotomy tubes. The patient is seen today June 02, 2024 in follow-up on the regular medical floor. She is awake and alert in no acute distress sitting up in bed. Having some right-sided chest pain. Chest x-ray is stable today does not show any significant pneumothorax. She now has right and left Pleurx Catheters in Place. She is maintaining good O2 saturations in the mid 90s on 2 L/min per nasal cannula. She is afebrile. Hemodynamically stable. Count 8.9. Hemoglobin 11.7. Platelets 129. Sodium 134. Potassium 4.5. Bicarb 30. BUN 13. Creatinine 0.3. Glucose 78. She is continued on DuoNeb inhalations, Symbicort, prednisone taper. Heparin for DVT prophylaxis. The patient is seen today June 03, 2024 in follow-up on the regular medical f [place]. She remains awake and alert in no acute distress. Denies any worsening shortness of breath, cough or congestion. Denies any pain currently. She is more comfortable. She is maintaining O2 saturations in the 90s on 2 L/min per nasal cannula. She remains on DuoNeb inhalations, Symbicort. Heparin for DVT prophylaxis. She is on a prednisone taper. Glucose 84. The patient is seen today June 04, 2024 in follow-up on the regular medical floor. She is sitting up in bed. Awake and alert in no acute distress. She continues to maintain good O2 saturations in the 90s on 2 L/min per nasal cannula. She denies any worsening shortness of breath, cough or congestion. Yesterday her sodium dropped to 125. Potassium 4.0. Bicarb 30. BUN 12. Creatinine 0.28. White count 7.5. Hemoglobin 12.0. She was initiated on normal saline at 75 MLS per hour. Today's labs are pending. Heart. Heparin for DVT prophylaxis. [place] and morphine for pain control. The patient is seen today June 05, 2024 in follow-up on the regular medical floor. She is currently awake and alert in no acute distress. Sitting up in bed. She feels weak and fatigued today. No worsening shortness of breath, c ough or congestion. She is maintaining good O2 saturations in the high 90s on 2 L/min per nasal cannula. She is afebrile. Hemodynamically stable. Glucose 96. She remains on DuoNeb inhalations, Symbicort, prednisone taper. Heparin for DVT prophylaxis. She remains on multiple medications for pain control and anxiety. Calcium has been replaced. Glucose 96 Objective - Vital Signs Vital signs: Vital Signs Temp 97.9 F 06/05/24 07:31 Pulse 88 06/05/24 07:31 Resp 18 06/05/24 07:31 BP 136/86 06/05/24 07:31 Pulse Ox 97 06/05/24 07:31 FiO2 Intake & Output 06/04/24 06/05/24 06/05/24 18:59 06:59 18:59 Other: Voiding Method Bedside Commode Bedside Commode # Voids 3 1 - Exam GENERAL EXAM: Alert, cachectic, weak 68-year-old female, on 2 L nasal cannula, in no apparent distress. HEAD: Normocephalic. EYES: Normal reaction of pupils, equal size. NOSE: Clear with pink turbinates. THROAT: No erythema or exudates. NECK: No masses, no JVD. CHEST: No chest wall deformity. LUNGS: Equal air entry with rales bilaterally right greater than left. Bilateral Pleurx catheters in place. CVS: S1 and S2 normal with no audible murmur, regular rhythm. ABDOMEN: No hepatosplenomegaly, normal bowel sounds, no guarding or rigidity. SPINE: No scoliosis or deformity SKIN: No rashes CENTRAL NERVOUS SYSTEM: No focal deficits, tone is normal in all 4 extremities. EXTREMITIES: There is no peripheral edema. No clubbing, no cyanosis. Peripheral pulses are intact. - Labs CBC & Chem 7: 06/03/24 11:31 06/04/24 19:52 Labs: Abnormal Lab Results - Last 24 Hours (Table) 06/04/24 06/04/24 06/04/24 Range/Units 03:51 17:27 19:52 Potassium 2.3 A* 5.5 H (3.5-5.5) mmol/L Chloride 114 H (96-109) mmol/L Carbon Dioxide 17.4 L (21.6-31.8) mmol/L BUN 4.3 L (9.0-27.0) mg/dL Creatinine <0.2 L (0.6-1.5) mg/dL Glucose 50 L (70-110) mg/dL POC Glucose (mg/dL) 132 H (70-110) mg/dL Calcium 4.8 A* (8.7-10.3) mg/dL Assessment and Plan Assessment: Acute on chronic hypoxic respiratory failure secondary to recurrent right-sided pleural effusion. Most recent thoracentesis on 05/11/2024 with 1 L of fluid removed. Positive for malignancy. Previous right-sided thoracentesis on 02/24/2024. Right sided Pleurx catheter placed on May 31, 2024 with 1.4 L of fluid removed. X-ray reveals similar right pneumothorax and bilateral pleural effusions with bilateral thoracotomy tubes History of malignant left-sided pleural effusion, requiring frequent previous thoracentesis, and eventual left Pleurx catheter insertion on 01/14/2024. Patient has been previously draining her catheter weekly, however, over the last 2 weeks minimal output was noted. Acute on chronic anxiety Chronic pain syndrome secondary to metastatic cancer Frequent readmissions due to pain control issues, anxiety and shortness of breath, discharged again on 05/20/2024 Metastatic breast cancer, most recent PET scan performed on 12/03/2023 identified new foci of uptake within the mediastinum and hilar lymph nodes, as well as new foci within the liver, osseous lesions including thoracic vertebral bodies and right ilium and left anterior rib and, as well as persistent uptake in the distal sigmoid colon, these findings are suspicious for disease progression and metastasis. She also has increased tumor marker levels as well. She was to have a follow-up PET scan and be restaged but has been hospitalized 3 times since then History of left-sided mastectomy Severe chronic obstructive pulmonary disease, most recent FEV1 47% of predicted, stable Chronic hypoxemic respiratory failure, maintained on 1-2 L/min nasal cannula while at home Former tobacco smoker, quitting approximately 2 months ago Hypothyroidism History of meningitis History of ovarian cyst Severe protein calorie malnutrition Hyponatremia, current sodium 125 Plan: The patient was seen and evaluated Medications and labs reviewed Calcium replaced Stable on 2 L nasal cannula Prognosis remains poor She is considering palliative care This patient was seen independently by the pulmonary nurse practitioner addressing pulmonary issues I have personally seen and examined the patient, performed the documentation and the assessment and plan as written. Number of minutes spent on the visit: 24.
[2024-06-05 12:07] LABS: Glucose,Whole Blood 97 mg/dL (70-110)
[2024-06-05] MEDS: LORazepam 1 MG TAB PO PRN (12:54)
--- NOTE | 2024-06-05 16:41 | P.PN ---
Subjective Progress Note Date: 06/05/24 Patient is a pleasant 68 years old female with metastatic breast cancer to the liver, spines ribs status post left mastectomy She has history of COPD as well. She presents because of recurrent right-sided malignant pleural effusion s/p Pleurx catheter placed. Patient today looks anxious and mildly tachypneic and she does not feel comfortable going rectal tomorrow. Will try to give her Ativan 1 extra dose 1 mg but that did not help. She is already on 2 mg 3 times daily. Patient denies any other complaint Pleurx catheter in place and is working Possible discharge in 24 hours if patient remains stable 06/03/2024 Patient is evaluated today in follow up on the medical floor. Patient reports feeling less short of breath today. Pleurex catheter in place and had 1.4 L of fluid removed. Sodium down to 125 today. Heart rate 111. 06/04/2024 Patient is evaluated today in follow-up on the medical floor. She is continue to have significant anxiety requesting an increase in her Ativan we will go up to 3 times a day. Patient continues to report feeling short of breath as well as anxious and scared. Her sodium today is up to 140 we will stop the normal saline at this time. Heart rate remains elevated in the 1 teens. Labs today reveal a potassium level 2.3 and a calcium level of 4.8. 06/05/2024 Patient continues to feel significant anxiety will increase her Ativan 2 mg 3 times a day. Patient states that she feels scared and anxious she is asking about hospice and the afterlife and requesting to speak with hospice tomorrow. Did discuss with patient if she does want to continue with treatment with oncology lets follow up with them tomorrow and also can talk with hospice so she can make an informed decision. Patient continues on MS contin not having any significant pain at this time. Sodium back down to 131 after being taken off of the IV fluids. REVIEW OF SYSTEMS: CONSTITUTIONAL: No fever, no malaise, no fatigue. HEENT: No recent visual problems or hearing problems. Denied any sore throat. CARDIOVASCULAR: No chest pain, orthopnea, PND, no palpitations, no syncope. PULMONARY: Reports shortness of breath, no cough, no hemoptysis. GASTROINTESTINAL: No diarrhea, no nausea, no vomiting, no abdominal pain. NEUROLOGICAL: No headaches, no weakness, no numbness. Physical Examination -GENERAL: The patient is alert and oriented x3, not in any acute distress. cachectic HEENT: Pupils are round and equally reacting to light. EOMI. No scleral icterus. No conjunctival pallor. Normocephalic, atraumatic. No pharyngeal erythema. No thyromegaly. CARDIOVASCULAR: S1 and S2 present. No murmurs, rubs, or gallops. -PULMONARY: Chest is clear to auscultation, no wheezing , no crackles. PleurX catheter in place ABDOMEN: Soft, nontender, nondistended, normoactive bowel sounds. No palpable organomegaly. MUSCULOSKELETAL: No joint swelling or deformity. EXTREMITIES: No cyanosis, clubbing, or pedal edema. NEUROLOGICAL: Gross neurological examination did not reveal any focal deficits. SKIN: No rashes. no petechiae. Assessment and Plan Assessment -Recurrent right malignant pleural effusion status post Pleurx catheter -Acute on chronic hypoxic respiratory failure from above -History of malignant left pleural effusion s/p Pleurx catheter on 01/2024, currently with little discharge -Metastatic breast cancer s/p l mastectomy. With metastatic disease to the liver spine and ribs -Oxygen dependent COPD without any acute exacerbation. -Severe protein calorie malnutrition from cancer, Continue on marinol. -Hyponatremia hypovolemic improved with normal saline -Hypokalemia, hypocalcemia GI prophylaxis DVT prophylaxis Full Code Plan Continue with Ativan increase up to 2 mg TID. Pleurx catheter in place and is working. Pulmonary and oncology team on the case Pain controlled and patient will continue on MS Contin Repeat BMP in the AM Patient wanting to speak with oncology about treatment options vs. hospice. The impression and plan of care has been dictated by Chelsea Rhodes, Nurse Practitioner as directed. Dr. Almaz MD I have performed a history and physical examination and medical decision making of this patient, discussed the same with the dictator, and agree with the dictators assessment and plan as written, documented as a scribe. Based on total visit time, I have performed more than 50% of this visit. Objective - Vital Signs Vital signs: Vital Signs Temp 97.6 F 06/05/24 12:09 Pulse 94 06/05/24 16:05 Resp 22 06/05/24 12:09 BP 113/77 06/05/24 12:09 Pulse Ox 93 L 06/05/24 12:09 FiO2 Intake & Output 06/04/24 06/05/24 06/05/24 18:59 06:59 18:59 Other: Voiding Method Bedside Commode Bedside Commode Bedside Commode # Voids 3 1 - Labs CBC & Chem 7: 06/03/24 11:31 06/05/24 04:41 Labs: Abnormal Lab Results - Last 24 Hours (Table) 06/04/24 06/04/24 06/05/24 Range/Units 17:27 19:52 04:41 Sodium 131 L (135-145) mmol/L Potassium 5.5 H (3.5-5.1) mmol/L Chloride 95 L (96-109) mmol/L BUN 8.2 L (9.0-27.0) mg/dL Creatinine 0.3 L (0.6-1.5) mg/dL BUN/Creatinine Ratio 27.33 H (12.00-20.00) Ratio POC Glucose (mg/dL) 132 H (70-110) mg/dL Assessment and Plan Time with Patient: Less than 30
[2024-06-05 17:19] LABS: Glucose,Whole Blood 105 mg/dL (70-110)
[2024-06-05 19:30] VITALS: RESP 16; TEMP 97.8
[2024-06-05 20:30] LABS: Glucose,Whole Blood 93 mg/dL (70-110)
[2024-06-06] MEDS ORDERED: SYMBICORT 160-4.5 MCG INHALER INHALATION ONE (00:01)
[2024-06-06] MEDS ORDERED: ESCITALOPRAM 10 MG TAB ONE (00:01)
[2024-06-06] MEDS ORDERED: IPRATROPIUM-ALBUTEROL 3 ML NEB ONE (00:01)
[2024-06-06 00:03] VITALS: BP 141/90; PULSE 95
[2024-06-06 07:37] LABS: Glucose,Whole Blood 71 mg/dL (70-110)
[2024-06-06] MEDS ORDERED: LORazepam 1 MG TAB ONE ×2 (10:29→19:45)
[2024-06-06] MEDS ORDERED: HYDROcodone/APAP 10-325MG 1 EACH TAB ONE ×3 (10:29→21:30)
[2024-06-06 12:32] LABS: Glucose,Whole Blood 76 mg/dL (70-110)
[2024-06-06 17:06] LABS: Glucose,Whole Blood 92 mg/dL (70-110)
[2024-06-06] MEDS ORDERED: droNABinol 2.5 MG CAP PO ONE (17:07)
[2024-06-06 20:22] LABS: Glucose,Whole Blood 101 mg/dL (70-110)
[2024-06-06] MEDS ORDERED: ONDANSETRON 4 MG TAB ONE (21:30)
[2024-06-06] MEDS ORDERED: HEPARIN SODIUM,PORCINE 5,000 UNIT/ML 1 ML VIAL ONE (21:30)
[2024-06-06] MEDS ORDERED: MORPHINE SULFATE ER 15 MG TABLET PO ONE (21:30)
[2024-06-06] MEDS ORDERED: DOCUSATE 100 MG CAP ONE (21:30)
[2024-06-06] MEDS ORDERED: METOPROLOL TARTRATE 12.5 MG TAB ONE (21:30)
[2024-06-06] MEDS ORDERED: FAMOTIDINE 20 MG TAB ONE (21:30)
[2024-06-07] MEDS ORDERED: ESCITALOPRAM 10 MG TAB ONE (00:01)
[2024-06-07] MEDS ORDERED: LEVOTHYROXINE 88 MCG TAB ONE (00:01)
[2024-06-07] MEDS ORDERED: HYDROcodone/APAP 10-325MG 1 EACH TAB ONE ×3 (04:08→16:34)
[2024-06-07] MEDS ORDERED: LORazepam 1 MG TAB ONE (04:09)
[2024-06-07 07:38] LABS: Glucose,Whole Blood 119 mg/dL (70-110)
[2024-06-07] MEDS ORDERED: IPRATROPIUM-ALBUTEROL 3 ML NEB ONE ×2 (07:49→20:14)
[2024-06-07] MEDS ORDERED: HEPARIN SODIUM,PORCINE 5,000 UNIT/ML 1 ML VIAL ONE (09:33)
[2024-06-07] MEDS ORDERED: METOPROLOL TARTRATE 12.5 MG TAB ONE (09:33)
[2024-06-07] MEDS ORDERED: FAMOTIDINE 20 MG TAB ONE (09:33)
[2024-06-07] MEDS ORDERED: DOCUSATE 100 MG CAP ONE (09:33)
[2024-06-07] MEDS ORDERED: droNABinol 2.5 MG CAP PO ONE (09:34)
[2024-06-07] MEDS ORDERED: predniSONE 10 MG TAB ONE (09:34)
[2024-06-07] MEDS ORDERED: MORPHINE SULFATE ER 15 MG TABLET PO ONE (09:34)
[2024-06-07] MEDS ORDERED: THIAMINE 100 MG TAB ONE (11:27)
[2024-06-07] MEDS ORDERED: MULTIVITAMINS, THERA 1 EACH TAB ONE (11:27)
[2024-06-07] MEDS ORDERED: FOLIC ACID 1 MG TAB ONE (11:28)
[2024-06-07 12:39] LABS: Glucose,Whole Blood 86 mg/dL (70-110)
[2024-06-07 17:01] LABS: Glucose,Whole Blood 101 mg/dL (70-110)
== END 2024-06-07 19:00 | disposition still patient (30) | DRG 180 ==
LOC: EC 09:13 → 5NMEDONC 12:34 → OBSVTOIN 05-30 10:45
PROVIDERS: ADMIT Internal Medicine; ATTEND Internal Medicine
PROC: 0W9930Z Drainage of Right Pleural Cavity with Drainage Device, Percutaneous Approach (ICD-10-PCS; 2024-05-31)
PROC: 0W9B30Z Drainage of Left Pleural Cavity with Drainage Device, Percutaneous Approach (ICD-10-PCS; principal; 2024-05-31 12:30)
DX: C78.02 Secondary malignant neoplasm of left lung (principal); E43 Unspecified severe protein-calorie malnutrition; J96.21 Acute and chronic respiratory failure with hypoxia; C79.51 Secondary malignant neoplasm of bone; E87.1 Hypo-osmolality and hyponatremia; J44.1 Chronic obstructive pulmonary disease with (acute) exacerbation; J93.83 Other pneumothorax; C78.7 Secondary malignant neoplasm of liver and intrahepatic bile duct; J91.0 Malignant pleural effusion; Z68.1 Body mass index [BMI] 19.9 or less, adult; C50.912 Malignant neoplasm of unspecified site of left female breast; Z51.5 Encounter for palliative care; E83.51 Hypocalcemia; E88.A Wasting disease (syndrome) due to underlying condition; E03.9 Hypothyroidism, unspecified; E86.1 Hypovolemia; Z99.81 Dependence on supplemental oxygen; E87.6 Hypokalemia; F41.9 Anxiety disorder, unspecified; G89.3 Neoplasm related pain (acute) (chronic); Z17.1 Estrogen receptor negative status [ER-]; Z90.12 Acquired absence of left breast and nipple; Z79.891 Long term (current) use of opiate analgesic; Z87.891 Personal history of nicotine dependence; Z92.21 Personal history of antineoplastic chemotherapy; Z79.890 Hormone replacement therapy; Z79.899 Other long term (current) drug therapy; Z86.61 Personal history of infections of the central nervous system
CPT/HCPCS: 36415; 71045; 71046; 80048; 80053; 83036; 83605; 83735; 84132; 84145; 85025; 85610; 85730; 93005; 94640; 94760; 96361; 96374; 96375; 99285